=== PATIENT | male | born 1960 | race Caucasian/White ===

== ENCOUNTER 2016-06-11 03:33 | Inpatient (IN) | payer OTHER ==
[2016-06-11] MEDS ORDERED: ALBUTEROL NEBULIZED 2.5 MG/3 ML INHALATION STA (03:47)
[2016-06-11] MEDS ORDERED: SODIUM CHLORIDE 0.9% 1,000 ML IV STA (03:47)
[2016-06-11] MEDS ORDERED: IPRATROPIUM 0.5 MG/2.5 ML NEBU INHALATION STA (03:47)
[2016-06-11] MEDS ORDERED: methylPREDNISolone SOD SUCCI 125 MG/2 ML VIAL IV STA (03:47)
[2016-06-11] MEDS ORDERED: EPINEPHrine 1 MG/ML 1 ML AMP SQ STA (03:47)
[2016-06-11] MEDS ORDERED: cefTRIAXone 2,000 MG in SODIUM CHLORIDE 0.9% 100 ML IVPB STA (03:51)
[2016-06-11] MEDS ORDERED: IPRATROPIUM-ALBUTEROL 3 ML NEB INHALATION STA (03:59)
[2016-06-11] MEDS ORDERED: ALBUTEROL NEB (CONC) 2.5 MG/0.5 ML INHALATION STA (03:59)
[2016-06-11 04:07] LABS: Anisocytosis Slight; Basophils % (A) 1 %; CH 34.1; CHCM 35.1; Eosinophils # (A) 0.1 k/uL (0-0.7); Eosinophils % (A) 2 %; HCT 45.8 % (39.0-53.0); HDW 3.23; HGB 15.1 gm/dL (13.0-17.5); Luc # (Auto) 0.15; Luc % (Auto) 3; Lymphocytes # (A) 1.2 k/uL (1.0-4.8); Lymphocytes % (A) 27 %; MCH 32.3 pg (25.0-35.0); MCHC 32.9 g/dL (31.0-37.0); MCV 97.9 fL (80.0-100.0); Macrocytosis Slight; Mean Platelet Volume 7.5; Monocytes # (A) 0.5 k/uL (0-1.0); Monocytes % (A) 11 %; Neutrophils # (A) 2.5 k/uL (1.3-7.7); Neutrophils % (A) 56 %; RBC 4.68 m/uL (4.30-5.90); RDW 16.3 % (11.5-15.5); WBC 4.4 k/uL (3.8-10.6)
[2016-06-11 04:13] LABS: ALT 61 U/L (21-72); AST 43 U/L (17-59); Alkaline Phosphatase 83 U/L (38-126); Anion Gap 12 mmol/L; Blood Urea Nitrogen 14 mg/dL (9-20); Carbon Dioxide 26 mmol/L (22-30); Chloride 101 mmol/L (98-107); Glucose 102 mg/dL (74-99); Non-African American GFR(MDRD) >60 (>60 ml/min/1.73 sqM); Potassium 4.3 mmol/L (3.5-5.1); Sodium 139 mmol/L (137-145); Total Bilirubin 0.9 mg/dL (0.2-1.3); Total Protein 7.2 g/dL (6.3-8.2)
[2016-06-11 04:20] LABS: Partial Thromboplastin Time 25.3 sec (22.0-30.0); Prothrombin Time 10.3 sec (9.0-12.0)
[2016-06-11 04:22] LABS: Creatine Kinase 1080 U/L (55-170)
--- NOTE | 2016-06-11 04:30 | ED ---
SOB HPI - General Chief Complaint: Shortness of Breath Stated Complaint: SOB Time Seen by Provider: 06/11/16 03:44 Source: patient Mode of arrival: ambulatory Limitations: no limitations - History of Present Illness Initial Comments: Presented with shortness of breath, he has history of heart disease as well as COPD as well as chronic bronchitis. Shortness of breath started about 2 hours ago he also has a chest pain it started about the same time and chest pain gets worse with deep breaths he has a history of heart disease last 10) for years ago then he had another 1 (5 years,. Denies any headaches no neck stiffness no fever no chills he is not coughing up any phlegm otherwise review of system is negative - Related Data Home Medications Medication Instructions Recorded Confirmed Albuterol Inhaler [Ventolin Hfa 2 puff INHALATION RT-Q4H PRN 07/04/14 06/11/16 Inhaler] Aspirin EC [Ecotrin Low Dose] 81 mg PO DAILY 07/04/14 06/11/16 Atorvastatin [Lipitor] 80 mg PO HS 07/04/14 06/11/16 Clopidogrel [Plavix] 75 mg PO DAILY 07/04/14 06/11/16 Gabapentin [Neurontin] 900 mg PO QID 07/04/14 06/11/16 Budesonide/Formoterol Fumarate 2 puff INHALATION RT-BID 02/10/15 06/11/16 [Symbicort 160-4.5 Mcg Inhaler] EPINEPHrine [Epipen 2-Matthew] 0.3 mg IM ONCE PRN 02/10/15 06/11/16 Nitroglycerin Sl Tabs [Nitrostat] 0.4 mg SUBLINGUAL Q5M PRN 02/10/15 06/11/16 Omeprazole [PriLOSEC] 20 mg PO AC-BRKFST 02/10/15 06/11/16 Cyanocobalamin [Vitamin B-12] 1,000 mcg PO DAILY 12/18/15 06/11/16 DULoxetine HCL [Cymbalta] 60 mg PO DAILY 12/18/15 06/11/16 Ergocalciferol (Vitamin D2) 50,000 unit PO Q7DAYS 12/18/15 06/11/16 [Drisdol] Petrolatum, White [Aquaphor] 1 applic TOPICAL DAILY PRN 12/18/15 06/11/16 Previous Rx's Medication Instructions Recorded Doxycycline [Vibramycin] 100 mg PO BID #6 cap 12/23/15 Furosemide [Lasix] 40 mg PO BID@0900,1600 #60 tab 12/23/15 Ipratropium-Albuterol Nebulize 3 ml INHALATION RT-QID ampul.neb 12/23/15 [Duoneb 0.5 mg-3 mg/3 ml Soln] Metoprolol Tartrate [Lopressor] 25 mg PO BID #60 tab 12/23/15 Spironolactone [Aldactone] 25 mg PO DAILY #30 tab 12/23/15 Allergies Allergy/AdvReac Type Severity Reaction Status Date / Time pregabalin [From Lyrica] Allergy Dyspnea Verified 06/11/16 03:40 venom-honey bee Allergy Unknown Verified 06/11/16 03:40 [bee venom (honey bee)] atorvastatin AdvReac MUSCLE PAIN Verified 06/11/16 03:40 isosorbide mononitrate AdvReac HEADACHES Verified 06/11/16 03:40 [From Imdur] rosuvastatin calcium AdvReac MUSCLE PAIN Verified 06/11/16 03:40 [From Crestor] tramadol AdvReac SUICIDAL Verified 06/11/16 03:40 THOUGHTS venlafaxine AdvReac SUICIDAL Verified 06/11/16 03:40 THOUGHTS Review of Systems ROS Statement: Those systems with pertinent positive or pertinent negative responses have been documented in the HPI. ROS Other: All systems not noted in ROS Statement are negative. Past Medical History Past Medical History: Asthma, Coronary Artery Disease (CAD), Cancer, COPD, GERD/ Reflux, Hyperlipidemia, Hypertension, Myocardial Infarction ([place]), Pneumonia Additional Past Medical History / Comment(s): Recent sinus infection-on ABX, bilateral lower extremity edema, peripheral neuropathy bilateral legs/feet, prostate cancer with surgery. Last Myocardial Infarction Date:: 01/2014 History of Any Multi-Drug Resistant Organisms: None Reported Past Surgical History: Heart Catheterization With Stent, Orthopedic Surgery, Prostate Surgery Additional Past Surgical History / Comment(s): RT LEG surgery d/t trauma, cardiac stents x 2, prostatectomy, 2013 [facility] Past Anesthesia/Blood Transfusion Reactions: No Reported Reaction Date of Last Stent Placement:: 02/15/2014 Past Psychological History: No Psychological Hx Reported Additional Psychological History / Comment(s): Pt resides in [place]. He is in [place] assisting with getting his mother established with hospice care. He is independent. He uses no device. He drives. He has a nebulizer. 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 [facility] [place] [facility]. Smoking Status: Current every day smoker Past Alcohol Use History: Occasional Additional Past Alcohol Use History / Comment(s): Pt started smoking in 1971 and is a ppd smoker. Past Drug Use History: None Reported - Past Family History Mother Family Medical History: COPD Additional Family Medical History / Comment(s): abdominal aneurysm. Currently being set up in hospice. Father Family Medical History: Cancer Additional Family Medical History / Comment(s): : lung ca with brain mets. General Exam - General Exam Comments Initial Comments: General: The patient is awake and alert, in no distress, and does not appear acutely ill. GCS is 15 Skin: Skin is warm and dry and no rashes or lesions are noted. Eye: Pupils are equal, round and reactive to light, extra-ocular movements are intact; there is normal conjunctiva bilaterally. Ears, nose, mouth and throat: There are moist mucous membranes and no oral lesions. Neck: The neck is supple, there is no tenderness or JVD. Cardiovascular: There is a regular rate and rhythm. No murmur, rub or gallop is appreciated. Respiratory: To auscultation bilateral, is very poor air exchange exam is consistent with a severe COPD Gastrointestinal: Soft, non-distended, non-tender abdomen without masses or organomegaly noted. There is no rebound or guarding present. Bowel sounds are unremarkable. Back: There is no tenderness to palpation in the midline. There is no obvious deformity. Musculoskeletal: Normal ROM, no tenderness, There is no pedal edema. There is no calf tenderness or swelling. No cords were appreciated. Neurological: CN II-XII intact, Cranial nerves III through XII are intact. There are no obvious motor or sensory deficits. Coordination appears grossly intact. Speech is normal. Psychiatric: Cooperative, appropriate mood & affect, normal judgment. Limitations: no limitations Course Vital Signs 06/11/16 06/11/16 06/11/16 03:33 03:37 04:03 Temperature 98.4 F Pulse Rate 99 103 H Respiratory 24 18 Rate Blood Pressure 116/73 O2 Sat by Pulse 97 Oximetry 06/11/16 06/11/16 04:14 05:35 Temperature Pulse Rate 92 93 Respiratory 20 Rate Blood Pressure 143/86 O2 Sat by Pulse 94 L Oximetry EKG shows sinus tachycardia heart rate is 101 DC interval is 144 QRS duration is 72 QT/QTc is 332/4:30 and the review of this EKG does not reveal any ST elevation or ST depression wrist some lower Medical Decision Making - Lab Data Result diagrams: 06/11/16 03:55 06/11/16 03:55 Lab Results 06/11/16 06/11/16 06/11/16 Range/Units 03:55 03:55 03:55 WBC 4.4 (3.8-10.6) k/uL RBC 4.68 (4.30-5.90) m/uL Hgb 15.1 (13.0-17.5) gm/dL Hct 45.8 (39.0-53.0) % MCV 97.9 (80.0-100.0) fL MCH 32.3 (25.0-35.0) pg MCHC 32.9 (31.0-37.0) g/dL RDW 16.3 H (11.5-15.5) % Plt Count 148 L (150-450) k/uL Neutrophils % 56 % Lymphocytes % 27 % Monocytes % 11 % Eosinophils % 2 % Basophils % 1 % Neutrophils # 2.5 (1.3-7.7) k/uL Lymphocytes # 1.2 (1.0-4.8) k/uL Monocytes # 0.5 (0-1.0) k/uL Eosinophils # 0.1 (0-0.7) k/uL Basophils # 0.0 (0-0.2) k/uL Anisocytosis Slight Macrocytosis Slight PT (9.0-12.0) sec INR (<1.1) APTT (22.0-30.0) sec D-Dimer (<0.60) mg/L FEU Sodium 139 (137-145) mmol/L Potassium 4.3 (3.5-5.1) mmol/L Chloride 101 (98-107) mmol/L Carbon Dioxide 26 (22-30) mmol/L Anion Gap 12 mmol/L BUN 14 (9-20) mg/dL Creatinine 1.12 (0.66-1.25) mg/dL Est GFR (MDRD) Af Amer >60 (>60 ml/min/1.73 sqM) Est GFR (MDRD) Non-Af >60 (>60 ml/min/1.73 sqM) Glucose 102 H (74-99) mg/dL Calcium 10.0 (8.4-10.2) mg/dL Total Bilirubin 0.9 (0.2-1.3) mg/dL AST 43 (17-59) U/L ALT 61 (21-72) U/L Alkaline Phosphatase 83 (38-126) U/L Total Creatine Kinase 1080 H (55-170) U/L CK-MB (CK-2) 25.7 H* (0.0-2.4) ng/mL CK-MB (CK-2) Rel Index 2.4 Troponin I <0.012 (0.000-0.034) ng/mL Total Protein 7.2 (6.3-8.2) g/dL Albumin 4.3 (3.5-5.0) g/dL 06/11/16 Range/Units 03:55 WBC (3.8-10.6) k/uL RBC (4.30-5.90) m/uL Hgb (13.0-17.5) gm/dL Hct (39.0-53.0) % MCV (80.0-100.0) fL MCH (25.0-35.0) pg MCHC (31.0-37.0) g/dL RDW (11.5-15.5) % Plt Count (150-450) k/uL Neutrophils % % Lymphocytes % % Monocytes % % Eosinophils % % Basophils % % Neutrophils # (1.3-7.7) k/uL Lymphocytes # (1.0-4.8) k/uL Monocytes # (0-1.0) k/uL Eosinophils # (0-0.7) k/uL Basophils # (0-0.2) k/uL Anisocytosis Macrocytosis PT 10.3 (9.0-12.0) sec INR 1.0 (<1.1) APTT 25.3 (22.0-30.0) sec D-Dimer 0.84 H (<0.60) mg/L FEU Sodium (137-145) mmol/L Potassium (3.5-5.1) mmol/L Chloride (98-107) mmol/L Carbon Dioxide (22-30) mmol/L Anion Gap mmol/L BUN (9-20) mg/dL Creatinine (0.66-1.25) mg/dL Est GFR (MDRD) Af Amer (>60 ml/min/1.73 sqM) Est GFR (MDRD) Non-Af (>60 ml/min/1.73 sqM) Glucose (74-99) mg/dL Calcium (8.4-10.2) mg/dL Total Bilirubin (0.2-1.3) mg/dL AST (17-59) U/L ALT (21-72) U/L Alkaline Phosphatase (38-126) U/L Total Creatine Kinase (55-170) U/L CK-MB (CK-2) (0.0-2.4) ng/mL CK-MB (CK-2) Rel Index Troponin I (0.000-0.034) ng/mL Total Protein (6.3-8.2) g/dL Albumin (3.5-5.0) g/dL Critical Care Time Total Critical Care Time: 35 Critical Care Time: Does have a history of for coronary artery disease, came in came in with excruciating chest pain worse with the deep breaths also had a trouble breathing has a history of COPD. , he was started on a poor residential neb treatments with the albuterol as well as Atrovent was also giving him IV Solu- Medrol he was given an appendectomy as well and now he is breathing better at this point is the troponin is negative his CKs 1008 [address] CT angiogram is normal his d-dimer was elevated white count is within normal range considering his history of heart disease and chest pain number heparinize him cardiology be consulted and as well as COPD is concerned Dr. Khan to be consulted and he be admitted under Dr. Myrick service Disposition Clinical Impression: Chest pain, Dyspnea, Pleuritic chest pain, Acute exacerbation of chronic obstructive pulmonary disease (COPD), Rhabdomyolysis Disposition: ADMITTED IP TO THIS [facility] Condition: Fair Referrals: Nonstaff,Physician [Primary Care Provider] - 1-2 days
[2016-06-11 04:35] LABS: Troponin I <0.012 ng/mL (0.000-0.034)
[2016-06-11 04:38] LABS: Creatine Kinase MB 25.7 ng/mL (0.0-2.4)
[2016-06-11] MEDS ORDERED: RX INFO: IV CONTRAST WAS GIVEN 1 EACH MISC MISCELLANE PRN (05:03)
[2016-06-11] MEDS ORDERED: SODIUM CHLORIDE 0.9% 500 ML IV ONE (05:13)
--- NOTE | 2016-06-11 06:10 | CT ---
EXAMINATION TYPE: CT angio chest DATE OF EXAM: 06/11/2016 5:38 AM COMPARISON: NONE HISTORY: SOB, asthma, COPD, elevated d-dimer R/O PE CT DLP: 1294.00 mGycm Automated exposure control for dose reduction was used. CONTRAST: CTA scan of the thorax is performed with IV Contrast, patient injected with 100 mL of Omnipaque 350, pulmonary embolism protocol. MIP images are created and reviewed. 3D reconstructed images are creat ed on an independent workstation and reviewed. FINDINGS: The lungs are clear consolidation. There is no pleural effusion. There is no evidence of a pulmonary mass. There is normal contrast opacification of the pulmonary arteries. I see no filling defects. There are no hilar masses. There is no mediastinal adenopathy. There is some spurring in the thoracic spine. T here is no evidence of aortic aneurysm or dissection. IMPRESSION: NEGATIVE CT ANGIOGRAM OF THE CHEST. NO EVIDENCE OF PULMONARY EMBOLISM.
[2016-06-11] MEDS ORDERED: MORPHINE SULFATE 2 MG/ML SYRINGE IVP PRN (06:23)
[2016-06-11] MEDS ORDERED: HEPARIN SODIUM,PORCINE 5,000 UNIT/ML 1 ML VIAL IV ONE (06:23)
[2016-06-11] MEDS ORDERED: PETROLATUM, WHITE OINT 50 GM TUBE TOPICAL PRN (06:28)
[2016-06-11] MEDS ORDERED: NITROGLYCERIN SL TABS 0.4 MG TAB SUBLINGUAL PRN (06:28)
[2016-06-11] MEDS ORDERED: ALBUTEROL NEBULIZED 2.5 MG/3 ML INHALATION PRN (06:28)
[2016-06-11] MEDS: HEPARIN SODIUM,PORCINE/D5W PMX 25,000 UNIT in DEXTROSE/WATER 1 500ML.BAG IV SCH ×2 (06:39→22:20)
[2016-06-11] MEDS ORDERED: SYMBICORT 160-4.5 MCG INHALER INHALATION SCH (08:00)
[2016-06-11] MEDS ORDERED: FUROSEMIDE 10 MG/ML 4 ML VIAL IV STA (08:56)
--- NOTE | 2016-06-11 08:56 | P.CRDCN ---
History of Present Illness Consult date: 06/11/16 Requesting physician: Jordon Aguila Consult reason: chest pain, shortness of breath Chief complaint: Shortness of breath and chest discomfort History of present illness: This is a 55-year-old gentleman with known history of coronary artery disease and prior RCA stent in 2012, patient also had moderate disease in the LAD at that time, subsequent to that patient did have a stent placed at the [facility] in [place], exact details of that are unavailable. He currently resides in [place]. He has known history also of hypertension, hyperlipidemia, COPD and nicotine dependence. He presents to the hospital with symptoms of a 3 day duration of shortness of breath, he states he also noticed some peripheral edema. Patient has been having intermittent chest heaviness, he states it feels like someone is sitting in his chest. This occurs off and on he's been experiencing this for over one week. For these reasons he came to the emergency room for further evaluation. EKG on arrival here showed a normal sinus rhythm with no acute changes, CTA of the chest was performed which was negative for pulmonary embolism. No chest x-ray performed. Laboratory data was reviewed, hemoglobin 15.1, platelet count 148, d-dimer 0.84, potassium 4.3, BUN 14, creatinine 1.1. Initial troponin 0.012. We do not have a BNP level. At the time of my examination this morning, patient still complains of having shortness of breath, not currently experiencing chest pain, he did state that he had some discomfort in his left arm earlier this morning. Past Medical History Past Medical History: Asthma, Coronary Artery Disease (CAD), Cancer, COPD, GERD/ Reflux, Hyperlipidemia, Hypertension, Myocardial Infarction ([place]), Pneumonia Additional Past Medical History / Comment(s): Recent sinus infection-on ABX, bilateral lower extremity edema, peripheral neuropathy bilateral legs/feet, prostate cancer with surgery. Last Myocardial Infarction Date:: 01/2014 History of Any Multi-Drug Resistant Organisms: None Reported Past Surgical History: Heart Catheterization With Stent, Orthopedic Surgery, Prostate Surgery Additional Past Surgical History / Comment(s): RT LEG surgery d/t trauma, cardiac stents x 2, prostatectomy, 2013 [facility] Past Anesthesia/Blood Transfusion Reactions: No Reported Reaction Date of Last Stent Placement:: 02/15/2014 Past Psychological History: No Psychological Hx Reported Additional Psychological History / Comment(s): Pt resides in [place]. He is in [place] assisting with getting his mother established with hospice care. He is independent. He uses no device. He drives. He has a nebulizer. 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 He [facility] [place] [facility]. Smoking Status: Current every day smoker Past Alcohol Use History: Occasional Additional Past Alcohol Use History / Comment(s): Pt started smoking in 1971 and is a ppd smoker. Past Drug Use History: None Reported - Past Family History Mother Family Medical History: COPD Additional Family Medical History / Comment(s): abdominal aneurysm. Currently being set up in hospice. Father Family Medical History: Cancer Additional Family Medical History / Comment(s): : lung ca with brain mets. Medications and Allergies Home Medications Medication Instructions Recorded Confirmed Type Albuterol Inhaler [Ventolin Hfa 2 puff INHALATION RT-Q4H PRN 07/04/14 06/11/16 History Inhaler] Aspirin EC [Ecotrin Low Dose] 81 mg PO DAILY 07/04/14 06/11/16 History Atorvastatin [Lipitor] 80 mg PO HS 07/04/14 06/11/16 History Clopidogrel [Plavix] 75 mg PO DAILY 07/04/14 06/11/16 History Gabapentin [Neurontin] 900 mg PO QID 07/04/14 06/11/16 History Budesonide/Formoterol Fumarate 2 puff INHALATION RT-BID 02/10/15 06/11/16 History [Symbicort 160-4.5 Mcg Inhaler] EPINEPHrine [Epipen 2-Matthew] 0.3 mg IM ONCE PRN 02/10/15 06/11/16 History Nitroglycerin Sl Tabs [Nitrostat] 0.4 mg SUBLINGUAL Q5M PRN 02/10/15 06/11/16 History Omeprazole [PriLOSEC] 20 mg PO AC-BRKFST 02/10/15 06/11/16 History Cyanocobalamin [Vitamin B-12] 1,000 mcg PO DAILY 12/18/15 06/11/16 History DULoxetine HCL [Cymbalta] 60 mg PO DAILY 12/18/15 06/11/16 History Ergocalciferol (Vitamin D2) 50,000 unit PO SUTH 12/18/15 06/11/16 History [Drisdol] Petrolatum, White [Aquaphor] 1 applic TOPICAL DAILY PRN 12/18/15 06/11/16 History Doxycycline Hyclate [Vibramycin] 100 mg PO BID 06/11/16 06/11/16 History Allergies Allergy/AdvReac Type Severity Reaction Status Date / Time pregabalin [From Lyrica] Allergy Dyspnea Verified 06/11/16 07:25 venom-honey bee Allergy Unknown Verified 06/11/16 07:25 [bee venom (honey bee)] atorvastatin AdvReac MUSCLE PAIN Verified 06/11/16 07:25 isosorbide mononitrate AdvReac HEADACHES Verified 06/11/16 07:25 [From Imdur] rosuvastatin calcium AdvReac MUSCLE PAIN Verified 06/11/16 07:25 [From Crestor] tramadol AdvReac SUICIDAL Verified 06/11/16 07:25 THOUGHTS venlafaxine AdvReac SUICIDAL Verified 06/11/16 07:25 THOUGHTS Physical Exam Vitals: Vital Signs Pulse Resp BP Pulse Ox 06/11/16 08:00 83 18 139/69 97 06/11/16 07:00 87 18 120/66 96 PHYSICAL EXAMINATION: HEENT: Head is atraumatic, normocephalic. Pupils equal, round. Neck is supple. There is elevated jugular venous pressure. HEART EXAMINATION: Heart S1, S2 normal. No murmur or gallop heard. CHEST EXAMINATION: Lungs are clear with diminished air entry bilaterally to the bases. ABDOMEN: Soft, obese, nontender. Bowel sounds are heard. No organomegaly noted. EXTREMITIES: 2+ peripheral pulses with trace evidence of peripheral edema and no calf tenderness noted. NEUROLOGIC patient is awake, alert and oriented -3. . Results 06/11/16 03:55 06/11/16 03:55 Current Medications Generic Name Dose Route Start Last Admin Trade Name Freq PRN Reason Stop Dose Admin Albuterol Sulfate 2.5 mg 06/11/16 06:28 Ventolin Nebulized INHALATION RT-Q4H PRN Shortness Of Breath Albuterol/Ipratropium 3 ml 06/11/16 08:00 Duoneb 0.5 Mg-3 Mg/3 Ml Soln INHALATION RT-QID [facility] Aspirin 325 mg 06/12/16 09:00 Aspirin PO DAILY [facility] Atorvastatin Calcium 80 mg 06/11/16 21:00 Lipitor PO HS [facility] Budesonide/Formoterol Fumarate 2 puff 06/11/16 08:00 Symbicort 160-4.5 Mcg Inhaler INHALATION RT-BID [facility] Clopidogrel Bisulfate 75 mg 06/11/16 09:00 Plavix PO DAILY [facility] Cyanocobalamin 1,000 mcg 06/11/16 09:00 Vitamin B-12 PO DAILY [facility] Doxycycline Monohydrate 100 mg 06/11/16 09:00 Vibramycin PO BID [facility] Duloxetine HCl 60 mg 06/11/16 09:00 Cymbalta PO DAILY [facility] Ergocalciferol 50,000 unit 06/11/16 09:00 Vitamin D2 PO Q7DAYS [facility] Furosemide 40 mg 06/11/16 09:00 Lasix PO BID@0900,1600 [facility] Gabapentin 900 mg 06/11/16 09:00 Neurontin PO QID [facility] Sodium Chloride 1,000 mls @ 100 mls/hr 06/11/16 03:47 06/11/16 04:08 Saline 0.9% IV 06/11/16 13:46 100 mls/hr .Q10H STA Administration Heparin Sodium/Dextrose 25,000 500 mls @ 20 mls/hr 06/11/16 06:30 06/11/16 06 :39 unit/ IV Solution IV 8.819 units/kg/hr .Q24H CHUY 20 mls/hr Protocol Administration 8.819 UNITS/KG/HR Metoprolol Tartrate 25 mg 06/11/16 09:00 Lopressor PO BID [facility] Miscellaneous Information 1 each 06/11/16 05:03 Rx Info: Iv Contrast Was Given MISCELLANE 06/13/16 05:04 DAILY PRN Per Protocol Morphine Sulfate 2 mg 06/11/16 06:23 Morphine Sulfate (Inj) IVP Q5M PRN Chest Pain Nitroglycerin 0.4 mg 06/11/16 06:28 Nitrostat SUBLINGUAL Q5M PRN Angina Non-Formulary Medication 20 mg 06/11/16 07:30 Omeprazole [Prilosec] PO AC-BRKFST [facility] Petrolatum 1 applic 06/11/16 06:28 Aquaphor TOPICAL DAILY PRN Dry Skin Spironolactone 25 mg 06/11/16 09:00 Aldactone PO DAILY [facility] EKG Interpretations (text) EKG shows a normal sinus rhythm with no acute changes. Assessment and Plan Plan: Assessment and plan #1 symptoms of sudden onset of shortness of breath mild associated peripheral edema, possible congestive heart failure, likely diastolic in nature. We will obtain a chest x-ray and BNP level. Most recent echocardiogram with Doppler study was performed here in December which revealed a left ventricular systolic function of 60-65%. #2 chest pain, somewhat atypical in nature. Initial troponin negative. EKG shows a normal sinus rhythm with no acute changes. We will obtain to further troponin values as well as an echocardiogram with Doppler study. CTA of the chest negative for PE. #3 known history of coronary artery disease with prior RCA stent in 2012, moderate LAD stenosis at that time. Subsequent to that patient did undergo a stent placement at the [facility] in [place], exact details unavailable. #4 hypertension, blood pressure here 138/60, heart rate in the 80s. He is 97% on 2 L oxygen. # 5 hyperlipidemia #6 COPD #7 nicotine dependence Plan We will obtain a stat chest x-ray, we will also obtain a BNP level, obtain to further troponin values. Repeat echocardiogram with Doppler study. Patient is currently on oral Lasix, we will give him a dose of IV Lasix. Further recommendations will be based on these findings and the patient's clinical course. DNP note has been reviewed, I agree with a documented findings and plan of care. Patient was seen and examined.
--- NOTE | 2016-06-11 09:07 | XR ---
EXAMINATION TYPE: XR chest 2V DATE OF EXAM: 06/11/2016 9:04 AM COMPARISON: 12/18/2015 HISTORY: Shortness of breath FINDINGS: The lungs are clear and there is no pneumothorax, pleural effusion, or focal pneumonia. Hyperinflat ion suggests COPD. Biapical pleural thickening noted. Hypertrophic change of the spine noted. IMPRESSION: 1. No acute process.
--- NOTE | 2016-06-11 10:33 | ECHOF ---
Referral Reason:chest pain MEASUREMENTS -------- HEIGHT: 157.5 cm WEIGHT: 113.4 kg BP: IVSd: 1.2 cm (0.6 - 1.1) LVIDd: 3.6 cm (3.9 - 5.3) LVPWd: 1.5 cm (0.6 - 1.1) IVSs: 1.5 cm LVIDs: 3.2 cm LVPWs: 1.2 cm Ao Diam: 3.2 cm (2.0 - 3.7) AV Cusp: 1.3 cm (1.5 - 2.6) LA Diam: 3.8 cm (2.7 - 3.8) MV E Gen: 0.68 m/s MV DecT: 210 ms MV A Gen: 0.83 m/s MV E/A Ratio: 0.83 RAP: 5.00 mmHg RVSP: 17.74 mmHg FINDINGS -------- Sinus rhythm. This was a technically difficult study with suboptimal views. Morbid Obesity There is mild concentric left ventricular hypertrophy. Overall left ventricular systolic function is normal with, an EF between 55 - 60 %. The right ventricle is normal in size. The left atrial size is normal. The right atrial size is normal. There is mild aortic valve sclerosis. There is no evidence of aortic regurgitation. Mild mitral annular calcification present. Mild mitral regurgitation is present. Mild tricuspid regurgitation present. There is no evidence of pulmonary hypertension. The right ventricular systolic pressure, as measured by Doppler, is 17.74mmHg. There is no pulmonic regurgitation present. The aortic root size is normal. There is no pericardial effusion. CONCLUSIONS -------- 1. There is mild concentric left ventricular hypertrophy. 2. Overall left ventricular systolic function is normal with, an EF between 55 - 60 %. 3. There is mild aortic valve sclerosis. 4. Mild mitral annular calcification present. 5. Mild mitral regurgitation is present. 6. Mild tricuspid regurgitation present. 7. There is no evidence of pulmonary hypertension. 8. The right ventricular systolic pressure, as measured by Doppler, is 17.74mmHg. INSTRUCTIONAL SYSTEMS SPECIALIST: Sol Sexton RDCS
[2016-06-11 11:12] LABS: Creatine Kinase 1110 U/L (55-170)
[2016-06-11 11:25] LABS: Troponin I <0.012 ng/mL (0.000-0.034)
[2016-06-11 11:32] LABS: Creatine Kinase MB 25.2 ng/mL (0.0-2.4)
--- NOTE | 2016-06-11 12:16 | HP ---
DATE OF ADMISSION: CHIEF COMPLAINT: Difficulty breathing. HISTORY OF PRESENT ILLNESS: This is the first admission for this 55-year-old, obese, white male from out of [facility]. He has a long-standing history of COPD and continues to smoke. He also has a history of coronary artery disease and has had a cardiac cath with placements of 2 stents. He also had CA of the prostate. He came to the emergency room with shortness of breath and also complaining of some chest discomfort with elevated cardiac enzymes. He has had no hemoptysis, fever, chills, purulent sputum production, etc. REVIEW OF SYSTEMS: He has had no change in vision or hearing, neurologic problems, cough, hemoptysis, orthopnea, PND, abdominal pain, nausea, vomiting, hematemesis, melena, hematochezia, colitis, diverticulosis, diverticulitis, hemorrhoids, jaundice, hepatitis, cirrhosis, hematuria, frequency, urgency, arthralgias, diabetes, etc. He does have a peripheral neuropathy and he has been told that it is a "prediabetic" problem. Past medical history, family history and personal and social histories reveal that he is on several different medications including something for his cholesterol and blood pressure. He is not allergic to any medication. SURGICAL HISTORY: He had a procedure on the right leg and 2 stents, and he is also had surgery for CA of the prostate. He continues to smoke at least a pack of cigarettes a day. PHYSICAL EXAMINATION: Blood pressure 140/73 with a pulse of 92, respirations 35 and he is afebrile. GENERAL: He appeared to be short of breath and obese. Skin color is normal. Skin is warm and dry. Lymph nodes are not enlarged. Head, ears, eyes, nose, mouth, and throat were normal. Neck veins not distended. Thyroid is not enlarged. Chest is clear. Cardiac exam is normal. No murmurs or extra sounds. Abdomen is protuberant and soft. There are no masses or visceromegaly. Extremities are normal. NEUROLOGICAL: He is intact. IMPRESSION: 1. Exacerbation of chronic obstructive pulmonary disease. 2. Hypertension. 3. History of coronary artery disease. 4. History of cancer of the prostate. 5. Peripheral neuropathy. PLAN: 1. Bed rest. 2. IV fluids. 3. Serial EKGs and enzymes. 4. IV and inhaled steroids with updrafts.
--- NOTE | 2016-06-11 13:09 | P.CNPUL ---
History of Present Illness Consult date: 06/11/16 Reason for consult: dyspnea, cough, chest pain Chief complaint: cough, chest pain History of present illness: 55 year old male presented to the ED c/o SOB and cough for 3 days. The patient states he does not see a identity access management architect here in , he did see one when he lived in [place]. He states he started with a cough and it is now productive of phlegm. He did have fever and chills at home, but states he never checked his temperature. He denies any sick contacts. He does continue to smoke 1 ppd x 40 years. He states he was told he has COPD and uses Spiriva, Symbicort, Albuterol nebs, and Ventolin. He does not wear home O2. He states he did have some chest pain which made it hard for him to take a deep breath. Review of Systems All systems: negative Past Medical History Past Medical History: Asthma, Coronary Artery Disease (CAD), Cancer, Heart Failure, COPD, GERD/Reflux, Hyperlipidemia, Hypertension, Myocardial Infarction (PR), Pneumonia, Prostate Disorder Additional Past Medical History / Comment(s): PR x 2, SAMIR with CPAP, chronic CHF , bilateral lower extremity edema, peripheral neuropathy bilateral legs/feet, prostate cancer with surgery, sinus infections. Last Myocardial Infarction Date:: 2014 History of Any Multi-Drug Resistant Organisms: None Reported Past Surgical History: Heart Catheterization With Stent, Orthopedic Surgery, Prostate Surgery Additional Past Surgical History / Comment(s): RT LEG surgery d/t trauma, cardiac stents x 2, prostatectomy Past Anesthesia/Blood Transfusion Reactions: No Reported Reaction Date of Last Stent Placement:: 02/15/2014 Past Psychological History: No Psychological Hx Reported Additional Psychological History / Comment(s): Pt resides in [place]. He is in [place] visiting with family for the holidays. He is independent. He uses no device. He drives. He has a nebulizer. 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 He has [facility] [place] in the past. Smoking Status: Current every day smoker Past Alcohol Use History: Occasional Additional Past Alcohol Use History / Comment(s): Pt started smoking in 1971 and is a ppd smoker. Past Drug Use History: None Reported - Past Family History Mother Family Medical History: COPD Additional Family Medical History / Comment(s): abdominal aneurysm. Currently being set up in hospice. Father Family Medical History: Cancer Additional Family Medical History / Comment(s): : lung ca with brain mets. Medications and Allergies Home Medications Medication Instructions Recorded Confirmed Type Albuterol Inhaler [Ventolin Hfa 2 puff INHALATION RT-Q4H PRN 07/04/14 06/11/16 History Inhaler] Aspirin EC [Ecotrin Low Dose] 81 mg PO DAILY 07/04/14 06/11/16 History Atorvastatin [Lipitor] 80 mg PO HS 07/04/14 06/11/16 History Clopidogrel [Plavix] 75 mg PO DAILY 07/04/14 06/11/16 History Gabapentin [Neurontin] 900 mg PO QID 07/04/14 06/11/16 History Budesonide/Formoterol Fumarate 2 puff INHALATION RT-BID 02/10/15 06/11/16 History [Symbicort 160-4.5 Mcg Inhaler] EPINEPHrine [Epipen 2-Matthew] 0.3 mg IM ONCE PRN 02/10/15 06/11/16 History Nitroglycerin Sl Tabs [Nitrostat] 0.4 mg SUBLINGUAL Q5M PRN 02/10/15 06/11/16 History Omeprazole [PriLOSEC] 20 mg PO AC-BRKFST 02/10/15 06/11/16 History Cyanocobalamin [Vitamin B-12] 1,000 mcg PO DAILY 12/18/15 06/11/16 History DULoxetine HCL [Cymbalta] 60 mg PO DAILY 12/18/15 06/11/16 History Ergocalciferol (Vitamin D2) 50,000 unit PO SUTH 12/18/15 06/11/16 History [Drisdol] Petrolatum, White [Aquaphor] 1 applic TOPICAL DAILY PRN 12/18/15 06/11/16 History Doxycycline Hyclate [Vibramycin] 100 mg PO BID 06/11/16 06/11/16 History Allergies Allergy/AdvReac Type Severity Reaction Status Date / Time pregabalin [From Lyrica] Allergy Dyspnea Verified 06/11/16 07:25 venom-honey bee Allergy Unknown Verified 06/11/16 07:25 [bee venom (honey bee)] atorvastatin AdvReac MUSCLE PAIN Verified 06/11/16 07:25 isosorbide mononitrate AdvReac HEADACHES Verified 06/11/16 07:25 [From Imdur] rosuvastatin calcium AdvReac MUSCLE PAIN Verified 06/11/16 07:25 [From Crestor] tramadol AdvReac SUICIDAL Verified 06/11/16 07:25 THOUGHTS venlafaxine AdvReac SUICIDAL Verified 06/11/16 07:25 THOUGHTS Physical Exam Osteopathic Statement: *. No significant issues noted on an osteopathic structural exam other than those noted in the History and Physical/Consult. Vitals: Vital Signs Pulse Resp BP Pulse Ox 06/11/16 10:00 52 L 18 141/96 97 06/11/16 09:00 51 L 18 137/94 96 06/11/16 08:00 83 18 139/69 97 06/11/16 07:00 87 18 120/66 96 Gen: A+OX3, NAD, obese CV: RRR, s1/s2 Lungs: diminished otherwise clear Abd: soft, nt/nd, +BS Ext: no edema Results - Laboratory Findings CBC and BMP: 06/11/16 03:55 06/11/16 03:55 PT/INR, D-dimer PT 10.3 sec (9.0-12.0) 06/11/16 03:55 INR 1.0 (<1.1) 06/11/16 03:55 D-Dimer 0.84 mg/L FEU (<0.60) H 06/11/16 03:55 Abnormal lab findings: Abnormal Labs 06/11/16 09:59 Total Creatine Kinase 1110 H CK-MB (CK-2) 25.2 H* - Diagnostic Findings Chest x-ray: report reviewed, image reviewed Assessment and Plan Plan: Acute exacerbation of COPD Tracheobronchitis Active tobacco abuse Obesity Atypical chest pain Hypertension Dyslipidemia Obesity Hx Prostate cancer O2 to maintain sat > or = to 88% Bronchodilators and Pulmicort/Perforomist Echocardiogram pending IV Solumedrol Singulair ABX: Azithromycin and Rocephin Cardiology recs Smoking cessation recommended Incentive spirometry and pulmonary hygiene May need outpatient PSG and PFT Thank you for this consultation. We will continue to follow along.
[2016-06-11] MEDS: GABAPENTIN 300 MG CAP PO SCH ×3 (14:26→20:42)
[2016-06-11] MEDS: SPIRONOLACTONE 25 MG TAB PO SCH (14:26)
[2016-06-11] MEDS: DULoxetine HCL 60 MG CAPSULE.DR PO SCH (14:26)
[2016-06-11] MEDS: methylPREDNISolone SOD SUCCI 40 MG/ML 1 ML VIAL IV SCH ×3 (14:26→23:02)
[2016-06-11] MEDS: PANTOPRAZOLE 40 MG TABLET PO SCH (14:27)
[2016-06-11] MEDS: CLOPIDOGREL 75 MG TAB PO SCH (14:29)
[2016-06-11] MEDS: CYANOCOBALAMIN 500 MCG TAB PO SCH (14:29)
[2016-06-11] MEDS: IPRATROPIUM-ALBUTEROL 3 ML NEB INHALATION SCH ×3 (14:56→20:02)
[2016-06-11] MEDS ORDERED: HEPARIN SODIUM,PORCINE 5,000 UNIT/ML 1 ML VIAL IV STA (15:57)
[2016-06-11 17:05] LABS: Creatine Kinase 955 U/L (55-170)
[2016-06-11] MEDS: FUROSEMIDE 40 MG TAB PO SCH (17:09)
[2016-06-11 17:18] LABS: Troponin I <0.012 ng/mL (0.000-0.034)
[2016-06-11 17:35] LABS: Creatine Kinase MB 22.6 ng/mL (0.0-2.4)
[2016-06-11 17:38] LABS: Glucose,Whole Blood 236 mg/dL (75-99)
[2016-06-11] MEDS: INSULIN LISPRO (humaLOG) 300 UNIT/3 ML VIAL SQ SCH ×2 (18:48→20:43)
[2016-06-11 19:57] LABS: Glucose,Whole Blood 302 mg/dL (75-99)
[2016-06-11] MEDS: FORMOTEROL FUMARATE 20 MCG/2 ML NEBU INHALATION SCH (20:02)
[2016-06-11] MEDS: BUDESONIDE 0.5 MG/2 ML NEBU INHALATION SCH (20:02)
[2016-06-11] MEDS: DOXYCYCLINE 50 MG CAP PO SCH (20:42)
[2016-06-11] MEDS: MONTELUKAST 10 MG TAB PO SCH (20:42)
[2016-06-11] MEDS: METOPROLOL TARTRATE 25 MG TAB PO SCH (20:43)
[2016-06-11] MEDS: ATORVASTATIN 80 MG TAB PO SCH (20:43)
[2016-06-11 22:31] LABS: Hemoglobin A1C 5.4 % (4.2-6.1)
[2016-06-11] MEDS: HEPARIN SODIUM,PORCINE 5,000 UNIT/ML 1 ML VIAL IV PRN (23:12)
[2016-06-12 05:47] LABS: Glucose,Whole Blood 171 mg/dL (75-99)
[2016-06-12] MEDS: methylPREDNISolone SOD SUCCI 40 MG/ML 1 ML VIAL IV SCH ×2 (05:54→12:26)
[2016-06-12] MEDS: INSULIN LISPRO (humaLOG) 300 UNIT/3 ML VIAL SQ SCH ×4 (05:55→20:24)
[2016-06-12] MEDS: PANTOPRAZOLE 40 MG TABLET PO SCH (05:55)
[2016-06-12 06:20] LABS: Cholesterol 232 mg/dL (<200); HDL Cholesterol 39 mg/dL (40-60); Triglycerides 340 mg/dL (<150)
[2016-06-12] MEDS: HEPARIN SODIUM,PORCINE 5,000 UNIT/ML 1 ML VIAL IV PRN (06:37)
[2016-06-12] MEDS: FORMOTEROL FUMARATE 20 MCG/2 ML NEBU INHALATION SCH ×2 (08:08→20:50)
[2016-06-12] MEDS: IPRATROPIUM-ALBUTEROL 3 ML NEB INHALATION SCH ×4 (08:08→20:50)
[2016-06-12] MEDS: BUDESONIDE 0.5 MG/2 ML NEBU INHALATION SCH ×2 (08:08→20:50)
[2016-06-12] MEDS: ASPIRIN 325 MG TAB PO SCH (08:18)
[2016-06-12] MEDS: CYANOCOBALAMIN 500 MCG TAB PO SCH (08:19)
[2016-06-12] MEDS: DULoxetine HCL 60 MG CAPSULE.DR PO SCH (08:19)
[2016-06-12] MEDS: DOXYCYCLINE 50 MG CAP PO SCH ×2 (08:19→20:24)
[2016-06-12] MEDS: FUROSEMIDE 40 MG TAB PO SCH ×2 (08:19→15:28)
[2016-06-12] MEDS: SPIRONOLACTONE 25 MG TAB PO SCH (08:19)
[2016-06-12] MEDS: CLOPIDOGREL 75 MG TAB PO SCH (08:19)
[2016-06-12] MEDS: GABAPENTIN 300 MG CAP PO SCH ×4 (08:19→20:23)
[2016-06-12] MEDS: METOPROLOL TARTRATE 25 MG TAB PO SCH ×2 (08:19→20:24)
[2016-06-12] MEDS ORDERED: AZITHROMYCIN 500 MG in SODIUM CHLORIDE 0.9% 250 ML IVPB SCH (09:00)
[2016-06-12 11:40] LABS: Glucose,Whole Blood 324 mg/dL (75-99)
--- NOTE | 2016-06-12 12:04 | P.PN ---
Subjective Principal diagnosis: Chest pain and shortness of breath Patient seen and examined. Patient states his breathing is better today. He denies any chest pain today. He states he did have one episode of chest pain last night. He states his back pain is chronic. He is otherwise feeling better overall. Objective - Vital Signs Vital signs: Vital Signs Temp 97.3 F L 06/12/16 08:00 Pulse 73 06/12/16 12:00 Resp 16 06/12/16 08:00 BP 127/67 06/12/16 08:00 Pulse Ox 93 L 06/12/16 08:08 Intake & Output 06/11/16 06/12/16 06/12/16 18:59 06:59 18:59 Intake Total 406.667 151.597 1271 Output Total 2 700 Balance 406.667 386.278 316 Weight 115.3 kg Intake: Intake, IV Titration 186.667 388.278 Amount Heparin Sodium,Porcine/ 186.667 388.278 D5w Pmx 25,000 unit In Dextrose/Water 1 500ml. bag @ 8.819 UNITS/KG/HR 20 mls/hr IV .Q24H [facility] Rx #:[id number] Oral 220 1016 Output: Urine 2 700 Other: # Voids 2 - Exam Gen: A+OX3, NAD, obese CV: RRR, s1/s2 Lungs: diminished otherwise clear Abd: soft, nt/nd, +BS Ext: no edema - Labs CBC & Chem 7: 06/11/16 03:55 06/11/16 03:55 Labs: Abnormal Lab Results - Last 24 Hours (Table) 06/11/16 06/11/16 06/11/16 Range/Units 15:47 17:36 19:55 APTT (22.0-30.0) sec POC Glucose (mg/dL) 236 H 302 H (75-99) mg/dL Total Creatine Kinase 955 H (55-170) U/L CK-MB (CK-2) 22.6 H* (0.0-2.4) ng/mL Triglycerides (<150) mg/dL Cholesterol (<200) mg/dL LDL Cholesterol, Calc (0-99) mg/dL HDL Cholesterol (40-60) mg/dL 06/12/16 06/12/16 06/12/16 Range/Units 05:43 05:45 05:47 APTT 32.4 H (22.0-30.0) sec POC Glucose (mg/dL) 171 H (75-99) mg/dL Total Creatine Kinase (55-170) U/L CK-MB (CK-2) (0.0-2.4) ng/mL Triglycerides 340 H (<150) mg/dL Cholesterol 232 H (<200) mg/dL LDL Cholesterol, Calc 125 H (0-99) mg/dL HDL Cholesterol 39 L (40-60) mg/dL 06/12/16 Range/Units 11:39 APTT (22.0-30.0) sec POC Glucose (mg/dL) 324 H (75-99) mg/dL Total Creatine Kinase (55-170) U/L CK-MB (CK-2) (0.0-2.4) ng/mL Triglycerides (<150) mg/dL Cholesterol (<200) mg/dL LDL Cholesterol, Calc (0-99) mg/dL HDL Cholesterol (40-60) mg/dL Assessment and Plan Plan: Acute exacerbation of COPD Tracheobronchitis Active tobacco abuse Obesity Atypical chest pain Hypertension Dyslipidemia Obesity Hx Prostate cancer O2 to maintain sat > or = to 88% Bronchodilators and Pulmicort/Perforomist Echocardiogram IV Solumedrol, change to PO Prednisone now Singulair ABX: Azithromycin and Rocephin Cardiology recs Smoking cessation recommended Incentive spirometry and pulmonary hygiene Outpatient PSG and PFT
--- NOTE | 2016-06-12 12:44 | P.PN ---
Subjective Principal diagnosis: Shortness of breath This is a 55-year-old gentleman with known history of coronary artery disease and prior RCA stent in 2012, patient also had moderate disease in the LAD at that time, subsequent to that patient did have a stent placed at the [facility] in [place], exact details of that are unavailable. He currently resides in [place]. He has known history also of hypertension, hyperlipidemia, COPD and nicotine dependence. He presents to the hospital with symptoms of a 3 day duration of shortness of breath, he states he also noticed some peripheral edema. Patient has been having intermittent chest heaviness, he states it feels like someone is sitting in his chest. This occurs off and on he's been experiencing this for over one week. For these reasons he came to the emergency room for further evaluation. EKG on arrival here showed a normal sinus rhythm with no acute changes, CTA of the chest was performed which was negative for pulmonary embolism. Patient was initiated on IV Lasix yesterday, today he states that he is coughing up dark colored sputum. Echocardiogram with Doppler study was performed which revealed an ejection fraction of 55-60%. Patient was also initiated on steroids and IV antibiotics. Overall he states he is feeling significantly better today. Objective - Vital Signs Vital signs: Vital Signs Temp 97.3 F L 06/12/16 08:00 Pulse 73 06/12/16 12:00 Resp 16 06/12/16 08:00 BP 127/67 06/12/16 08:00 Pulse Ox 93 L 06/12/16 08:08 Intake & Output 06/11/16 06/12/16 06/12/16 18:59 06:59 18:59 Intake Total 406.667 789.777 1513 Output Total 2 700 Balance 406.667 386.278 316 Weight 115.3 kg Intake: Intake, IV Titration 186.667 388.278 Amount Heparin Sodium,Porcine/ 186.667 388.278 D5w Pmx 25,000 unit In Dextrose/Water 1 500ml. bag @ 8.819 UNITS/KG/HR 20 mls/hr IV .Q24H [facility] Rx #:[id number] Oral 220 1016 Output: Urine 2 700 Other: # Voids 2 - Exam PHYSICAL EXAMINATION: HEENT: Head is atraumatic, normocephalic. Pupils equal, round. Neck is supple. There is elevated jugular venous pressure. HEART EXAMINATION: Heart S1, S2 normal. No murmur or gallop heard. CHEST EXAMINATION: Lungs are clear with diminished air entry bilaterally to the bases. ABDOMEN: Soft, obese, nontender. Bowel sounds are heard. No organomegaly noted. EXTREMITIES: 2+ peripheral pulses with trace evidence of peripheral edema and no calf tenderness noted. NEUROLOGIC patient is awake, alert and oriented -3. . - Labs CBC & Chem 7: 06/11/16 03:55 06/11/16 03:55 Labs: Abnormal Lab Results - Last 24 Hours (Table) 06/11/16 06/11/16 06/11/16 Range/Units 15:47 17:36 19:55 APTT (22.0-30.0) sec POC Glucose (mg/dL) 236 H 302 H (75-99) mg/dL Total Creatine Kinase 955 H (55-170) U/L CK-MB (CK-2) 22.6 H* (0.0-2.4) ng/mL Triglycerides (<150) mg/dL Cholesterol (<200) mg/dL LDL Cholesterol, Calc (0-99) mg/dL HDL Cholesterol (40-60) mg/dL 06/12/16 06/12/16 06/12/16 Range/Units 05:43 05:45 05:47 APTT 32.4 H (22.0-30.0) sec POC Glucose (mg/dL) 171 H (75-99) mg/dL Total Creatine Kinase (55-170) U/L CK-MB (CK-2) (0.0-2.4) ng/mL Triglycerides 340 H (<150) mg/dL Cholesterol 232 H (<200) mg/dL LDL Cholesterol, Calc 125 H (0-99) mg/dL HDL Cholesterol 39 L (40-60) mg/dL 06/12/16 Range/Units 11:39 APTT (22.0-30.0) sec POC Glucose (mg/dL) 324 H (75-99) mg/dL Total Creatine Kinase (55-170) U/L CK-MB (CK-2) (0.0-2.4) ng/mL Triglycerides (<150) mg/dL Cholesterol (<200) mg/dL LDL Cholesterol, Calc (0-99) mg/dL HDL Cholesterol (40-60) mg/dL Assessment and Plan Plan: Assessment and Plan #1 symptoms of sudden onset of shortness of breath, likely secondary to exacerbation of COPD with associated tracheobronchitis. Mild diastolic heart failure. #2 chest pain, somewhat atypical in nature. Initial troponin negative. EKG shows a normal sinus rhythm with no acute changes. We will obtain to further troponin values as well as an echocardiogram with Doppler study. CTA of the chest negative for PE. #3 known history of coronary artery disease with prior RCA stent in 2012, moderate LAD stenosis at that time. Subsequent to that patient did undergo a stent placement at the [facility] in [place], exact details unavailable. #4 hypertension # 5 hyperlipidemia #6 COPD #7 nicotine dependence Plan Cardiology's perspective, we'll discontinue the IV Lasix today and start the patient on oral diuretics. Continue IV antibiotics and steroids along with breathing treatments. DNP note has been reviewed, I agree with a documented findings and plan of care. Patient was seen and examined.
--- NOTE | 2016-06-12 14:01 | PN ---
CHIEF COMPLAINT: Exacerbation of COPD. HISTORY OF PRESENT ILLNESS: This gentleman is doing fairly well and breathing has improved. He has been seen by Cardiology. PHYSICAL EXAM: His chest is quite clear today and cardiac exam is normal. The abdomen is soft, nontender. IMPRESSION: 1. Exacerbation of chronic obstructive pulmonary disease. 2. Coronary artery disease. PLAN: Increase activity and possibly home today, depending on Cardiology's recommendations.
[2016-06-12 17:09] LABS: Glucose,Whole Blood 189 mg/dL (75-99)
[2016-06-12 20:06] LABS: Glucose,Whole Blood 217 mg/dL (75-99)
[2016-06-12] MEDS: ATORVASTATIN 80 MG TAB PO SCH (20:24)
[2016-06-12] MEDS: MONTELUKAST 10 MG TAB PO SCH (20:24)
[2016-06-12] MEDS: BENZOCAINE/MENTHOL LOZENG 1 EACH LOZENGE MUCOUS MEM PRN (23:19)
[2016-06-13] MEDS: BENZOCAINE/MENTHOL LOZENG 1 EACH LOZENGE MUCOUS MEM PRN ×2 (03:21→07:57)
[2016-06-13 05:59] LABS: Glucose,Whole Blood 200 mg/dL (75-99)
[2016-06-13] MEDS: PANTOPRAZOLE 40 MG TABLET PO SCH (06:05)
[2016-06-13] MEDS: INSULIN LISPRO (humaLOG) 300 UNIT/3 ML VIAL SQ SCH ×2 (06:05→12:11)
[2016-06-13] MEDS: GABAPENTIN 300 MG CAP PO SCH ×2 (07:37→12:11)
[2016-06-13] MEDS: CLOPIDOGREL 75 MG TAB PO SCH (07:38)
[2016-06-13] MEDS: ASPIRIN 325 MG TAB PO SCH (07:38)
[2016-06-13] MEDS: DOXYCYCLINE 50 MG CAP PO SCH (07:38)
[2016-06-13] MEDS: CYANOCOBALAMIN 500 MCG TAB PO SCH (07:39)
[2016-06-13] MEDS: METOPROLOL TARTRATE 25 MG TAB PO SCH (07:39)
[2016-06-13] MEDS: FUROSEMIDE 40 MG TAB PO SCH (07:39)
[2016-06-13] MEDS: SPIRONOLACTONE 25 MG TAB PO SCH (07:39)
[2016-06-13] MEDS: DULoxetine HCL 60 MG CAPSULE.DR PO SCH (07:40)
[2016-06-13 07:54] VITALS: BP 121/70; RESP 18; TEMP 96.7
[2016-06-13] MEDS: IPRATROPIUM-ALBUTEROL 3 ML NEB INHALATION SCH ×2 (08:53→12:42)
[2016-06-13] MEDS: FORMOTEROL FUMARATE 20 MCG/2 ML NEBU INHALATION SCH (08:53)
[2016-06-13] MEDS: BUDESONIDE 0.5 MG/2 ML NEBU INHALATION SCH (08:53)
[2016-06-13 08:58] VITALS: PULSE 84
[2016-06-13] MEDS ORDERED: AZITHROMYCIN 500 MG TAB PO SCH (09:00)
[2016-06-13] MEDS ORDERED: predniSONE 20 MG TAB PO SCH (09:00)
[2016-06-13 11:24] LABS: Glucose,Whole Blood 306 mg/dL (75-99)
--- NOTE | 2016-06-13 13:41 | P.DS ---
Providers Date of admission: 06/11/16 06:23 Expected date of discharge: 06/13/16 Attending physician: Jordon Aguila Consults: [facility] Dr. 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 He is here visiting in [place] with family. Patient does have a history of nicotine dependency and continues to smoke 1 pack daily greater than a 40 year history.. Patient does not wear home O2. Patient states he was told he had COPD and does use of a core an albuterol nebulizer and Ventolin. Patient was seen by pulmonology service for an acute exacerbation of COPD with acute bronchitis. Started on IV antibiotics additionally patient has a known history of coronary artery disease with prior coronary stenting.. Patient was seen by pulmonology service. Patient did have a CAT scan of the chest was negative for evidence of a pulmonary emboli. Patient was initiated on IV Lasix. Diuresed effectively. Patient had an echocardiogram done that showed an EF of 55-60%. Cardiology indicated that was no further cardiac workup indicated at this time. Patient was being treated for chest pain atypical with no evidence of acute coronary syndrome. From all consulting physicians patient was felt to be appropriate to be discharged home with the plan the patient will follow-up in [place] with his own primary care provider Impression discharge diagnosis Present on admission shortness of breath suspect due to exacerbation of COPD with acute tracheal bronchitis COPD Known coronary artery disease with prior coronary stenting in 2012 LAD Present on admission chest pain with no evidence of acute coronary syndrome cardiac enzymes 3 sets negative Chronic diastolic heart failure Obesity BMI 35 Dyslipidemia Active tobacco abuse greater than a 40 year history History of prostate cancer Echocardiogram June 11 2016 left ventricular systolic function normal EF 55- 60% no evidence of pulmonary hypertension The above dictated assessment and findings were discussed with dr aguila. Impression and the plan of care have been dictated as directed. Latha Fortune nurse practitioner acting as a scribe for dr aguila Patient Condition at Discharge: Fair Plan - Discharge Summary New Discharge Prescriptions: Azithromycin [Zithromax] 500 mg PO DAILY #7 tab Doxycycline Hyclate [Vibramycin] 100 mg PO BID #28 capsule Montelukast [Singulair] 10 mg PO HS #30 tab predniSONE 20 mg PO DAILY #24 tab Discharge Medication List Albuterol Inhaler [Ventolin Hfa Inhaler] 2 puff INHALATION RT-Q4H PRN 07/04/14 [ History] Aspirin EC [Ecotrin Low Dose] 81 mg PO DAILY 07/04/14 [History] Atorvastatin [Lipitor] 80 mg PO HS 07/04/14 [History] Clopidogrel [Plavix] 75 mg PO DAILY 07/04/14 [History] Gabapentin [Neurontin] 900 mg PO QID 07/04/14 [History] Budesonide/Formoterol Fumarate [Symbicort 160-4.5 Mcg Inhaler] 2 puff INHALATION RT-BID 02/10/15 [History] EPINEPHrine [Epipen 2-Matthew] 0.3 mg IM ONCE PRN 02/10/15 [History] Nitroglycerin Sl Tabs [Nitrostat] 0.4 mg SUBLINGUAL Q5M PRN 02/10/15 [History] Omeprazole [PriLOSEC] 20 mg PO AC-BRKFST 02/10/15 [History] Cyanocobalamin [Vitamin B-12] 1,000 mcg PO DAILY 12/18/15 [History] DULoxetine HCL [Cymbalta] 60 mg PO DAILY 12/18/15 [History] Ergocalciferol (Vitamin D2) [Drisdol] 50,000 unit PO SUTH 12/18/15 [History] Petrolatum, White [Aquaphor] 1 applic TOPICAL DAILY PRN 12/18/15 [History] Furosemide [Lasix] 40 mg PO BID@0900,1600 #60 tab 12/23/15 [Rx] Ipratropium-Albuterol Nebulize [Duoneb 0.5 mg-3 mg/3 ml Soln] 3 ml INHALATION RT -QID ampul.neb 12/23/15 [Rx] Metoprolol Tartrate [Lopressor] 25 mg PO BID #60 tab 12/23/15 [Rx] Spironolactone [Aldactone] 25 mg PO DAILY #30 tab 12/23/15 [Rx] Azithromycin [Zithromax] 500 mg PO DAILY #7 tab 06/13/16 [Rx] Doxycycline Hyclate [Vibramycin] 100 mg PO BID #28 capsule 06/13/16 [Rx] Formoterol Fumarate [Perforomist] 20 mcg INHALATION RT-BID nebu 06/13/16 [Rx] Montelukast [Singulair] 10 mg PO HS #30 tab 06/13/16 [Rx] predniSONE 20 mg PO DAILY #24 tab 06/13/16 [Rx] Follow up Appointment(s)/Referral(s): Jordon Aguila MD [STAFF PHYSICIAN] - 06/14/16 3:00 pm Harper Morales DO [Doctor of Osteopathic Medicine] - 1 Week Patient Instructions/Handouts: COPD (Chronic Obstructive Pulmonary Disease) (DC ) Activity/Diet/Wound Care/Special Instructions: Provide patient with smoking cessation information Discharge Disposition: HOME SELF-CARE
--- NOTE | 2016-06-13 15:39 | P.PN ---
Subjective Principal diagnosis: Shortness of breath This is a 55-year-old gentleman with known history of coronary artery disease and prior RCA stent in 2012, patient also had moderate disease in the LAD at that time, subsequent to that patient did have a stent placed at the [facility] in [place], exact details of that are unavailable. He currently resides in [place]. He has known history also of hypertension, hyperlipidemia, COPD and nicotine dependence. He presents to the hospital with symptoms of a 3 day duration of shortness of breath, he states he also noticed some peripheral edema. Patient has been having intermittent chest heaviness, he states it feels like someone is sitting in his chest. This occurs off and on he's been experiencing this for over one week. For these reasons he came to the emergency room for further evaluation. EKG on arrival here showed a normal sinus rhythm with no acute changes, CTA of the chest was performed which was negative for pulmonary embolism. Patient was initiated on IV Lasix continues to cough up dark colored sputum. Echocardiogram with Doppler study was performed which revealed an ejection fraction of 55-60%. Patient was also initiated on steroids and IV antibiotics. Overall he states he is feeling significantly better today. Hoping to be discharged home. Objective - Vital Signs Vital signs: Vital Signs Temp 96.7 F L 06/13/16 07:52 Pulse 84 06/13/16 09:04 Resp 18 06/13/16 07:52 BP 121/70 06/13/16 07:52 Pulse Ox 95 06/13/16 07:52 Intake & Output 06/12/16 06/13/16 06/13/16 18:59 06:59 18:59 Intake Total 2750 1500 300 Output Total 1350 Balance 1400 1500 300 Weight 115.7 kg Intake: Intake, IV Titration 250 Amount Azithromycin 500 mg In 250 Sodium Chloride 0.9% 250 ml @ 125 mls/hr IVPB DAILY [facility] Rx#:[id number] Oral 2500 1500 300 Output: Urine 1350 Other: # Voids 3 2 # Bowel Movements 0 - Exam PHYSICAL EXAMINATION: HEENT: Head is atraumatic, normocephalic. Pupils equal, round. Neck is supple. There is elevated jugular venous pressure. HEART EXAMINATION: Heart S1, S2 normal. No murmur or gallop heard. CHEST EXAMINATION: Lungs are clear with diminished air entry bilaterally to the bases. ABDOMEN: Soft, obese, nontender. Bowel sounds are heard. No organomegaly noted. EXTREMITIES: 2+ peripheral pulses with trace evidence of peripheral edema and no calf tenderness noted. NEUROLOGIC patient is awake, alert and oriented -3. . - Labs CBC & Chem 7: 06/11/16 03:55 06/11/16 03:55 Labs: Abnormal Lab Results - Last 24 Hours (Table) 06/12/16 06/12/16 06/13/16 Range/Units 17:07 20:05 05:57 POC Glucose (mg/dL) 189 H 217 H 200 H (75-99) mg/dL 06/13/16 Range/Units 11:07 POC Glucose (mg/dL) 306 H (75-99) mg/dL Assessment and Plan Plan: Assessment and Plan #1 symptoms of sudden onset of shortness of breath, likely secondary to exacerbation of COPD with associated tracheobronchitis. Mild diastolic heart failure. #2 chest pain, somewhat atypical in nature. Initial troponin negative. EKG shows a normal sinus rhythm with no acute changes. We will obtain to further troponin values as well as an echocardiogram with Doppler study. CTA of the chest negative for PE. #3 known history of coronary artery disease with prior RCA stent in 2012, moderate LAD stenosis at that time. Subsequent to that patient did undergo a stent placement at the [facility] in [place], exact details unavailable. #4 hypertension # 5 hyperlipidemia #6 COPD #7 nicotine dependence Plan Cardiology's perspective, patient may be able to be discharged once cleared by the primary care doctor. 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 DNP note has been reviewed, I agree with a documented findings and plan of care. Patient was seen and examined.
--- NOTE | 2016-06-13 18:54 | PN ---
DATE OF SERVICE: 06/13/2016 CHIEF COMPLAINT: Difficulty breathing. HISTORY OF PRESENT ILLNESS: This gentleman is doing well, and his chest is clear. He can probably go home today. Cardiac workup is negative. PHYSICAL EXAMINATION: CHEST: Clear. CARDIAC: Normal. ABDOMEN: Soft, nontender. Protuberant. IMPRESSION: 1. Exacerbation of chronic obstructive pulmonary disease. 2. Coronary artery disease. PLAN: Home today. This will be arranged by the nurse practitioner.
[2016-06-17] MEDS ORDERED: ERGOCALCIFEROL 50,000 UNIT CAP PO SCH (09:00)
== END 2016-06-13 14:46 | disposition home or self-care (01) | DRG 191 ==
LOC: EC 03:33 → 6SEL 06:23
PROVIDERS: ADMIT Family Medicine; ATTEND Family Medicine
DX: J44.0 Chronic obstructive pulmonary disease with (acute) lower respiratory infection (principal); I50.32 Chronic diastolic (congestive) heart failure; M62.82 Rhabdomyolysis; E78.5 Hyperlipidemia, unspecified; G62.9 Polyneuropathy, unspecified; J44.1 Chronic obstructive pulmonary disease with (acute) exacerbation; I10 Essential (primary) hypertension; J45.909 Unspecified asthma, uncomplicated; G47.33 Obstructive sleep apnea (adult) (pediatric); J20.9 Acute bronchitis, unspecified; I25.2 Old myocardial infarction; I25.10 Atherosclerotic heart disease of native coronary artery without angina pectoris; K21.9 Gastro-esophageal reflux disease without esophagitis; R74.8 Abnormal levels of other serum enzymes; R00.0 Tachycardia, unspecified; M54.9 Dorsalgia, unspecified; G89.29 Other chronic pain; F17.210 Nicotine dependence, cigarettes, uncomplicated; Z95.5 Presence of coronary angioplasty implant and graft; Z82.5 Family history of asthma and other chronic lower respiratory diseases; Z80.1 Family history of malignant neoplasm of trachea, bronchus and lung; Z85.46 Personal history of malignant neoplasm of prostate; Z71.6 Tobacco abuse counseling; Z87.01 Personal history of pneumonia (recurrent); Z86.19 Personal history of other infectious and parasitic diseases; Z87.828 Personal history of other (healed) physical injury and trauma; Z82.49 Family history of ischemic heart disease and other diseases of the circulatory system; Z90.79 Acquired absence of other genital organ(s); Z80.8 Family history of malignant neoplasm of other organs or systems; Z88.5 Allergy status to narcotic agent; Z88.8 Allergy status to other drugs, medicaments and biological substances; Z91.030 Bee allergy status; Z79.02 Long term (current) use of antithrombotics/antiplatelets; Z79.82 Long term (current) use of aspirin; Z79.51 Long term (current) use of inhaled steroids; Z79.899 Other long term (current) drug therapy
CPT/HCPCS: 36415; 71020; 71275; 80053; 80061; 82550; 82553; 83036; 83880; 84484; 85025; 85379; 85610; 85730; 93005; 93306; 94640; 94760; 99285

== ENCOUNTER 2016-06-23 01:57 | Observation (INO) | payer OTHER ==
--- NOTE | 2016-06-23 02:44 | XR ---
EXAMINATION TYPE: XR chest 1V portable DATE OF EXAM: 06/23/2016 2:24 AM COMPARISON: 06/11/2016 HISTORY: Shortness of breath asthma COPD chest pain TECHNIQUE: Single frontal view of the chest is obtained. FINDINGS: There is no focal air space opacity, pleural effusion, or pneumothorax seen. The cardiac silhouette size is within normal limits. Chronic lung changes are suggested. The osseous structures are intact. IMPRESSION: 1. Chronic lung changes. 2. No active lung infiltrates. 3. No significant interval change.
--- NOTE | 2016-06-23 03:10 | ED ---
Chest Pain HPI - General Chief Complaint: Chest Pain Stated Complaint: Chest Pain Time Seen by Provider: 06/23/16 02:01 Source: patient, RN notes reviewed Mode of arrival: ambulatory Limitations: no limitations - History of Present Illness MD Complaint: chest pain Onset/Timin -: hour(s) Onset: during rest Pain Location: substernal Pain Radiation: neck Severity: severe Quality: tightness Consistency: constant Improves With: nothing Worsens With: nothing Anginal Symptoms: dyspnea - Related Data Home Medications Medication Instructions Recorded Confirmed Albuterol Inhaler [Ventolin Hfa 2 puff INHALATION RT-Q4H PRN 07/04/14 06/23/16 Inhaler] Aspirin EC [Ecotrin Low Dose] 81 mg PO DAILY 07/04/14 06/23/16 Atorvastatin [Lipitor] 80 mg PO HS 07/04/14 06/23/16 Clopidogrel [Plavix] 75 mg PO DAILY 07/04/14 06/23/16 Gabapentin [Neurontin] 900 mg PO QID 07/04/14 06/23/16 Budesonide/Formoterol Fumarate 2 puff INHALATION RT-BID 02/10/15 06/23/16 [Symbicort 160-4.5 Mcg Inhaler] EPINEPHrine [Epipen 2-Matthew] 0.3 mg IM ONCE PRN 02/10/15 06/23/16 Nitroglycerin Sl Tabs [Nitrostat] 0.4 mg SUBLINGUAL Q5M PRN 02/10/15 06/23/16 Omeprazole [PriLOSEC] 20 mg PO AC-BRKFST 02/10/15 06/23/16 Cyanocobalamin [Vitamin B-12] 1,000 mcg PO DAILY 12/18/15 06/23/16 DULoxetine HCL [Cymbalta] 60 mg PO DAILY 12/18/15 06/23/16 Ergocalciferol (Vitamin D2) 50,000 unit PO SUTH 12/18/15 06/23/16 [Drisdol] Petrolatum, White [Aquaphor] 1 applic TOPICAL DAILY PRN 12/18/15 06/23/16 Previous Rx's Medication Instructions Recorded Furosemide [Lasix] 40 mg PO BID@0900,1600 #60 tab 12/23/15 Ipratropium-Albuterol Nebulize 3 ml INHALATION RT-QID ampul.neb 12/23/15 [Duoneb 0.5 mg-3 mg/3 ml Soln] Metoprolol Tartrate [Lopressor] 25 mg PO BID #60 tab 12/23/15 Spironolactone [Aldactone] 25 mg PO DAILY #30 tab 12/23/15 Azithromycin [Zithromax] 500 mg PO DAILY #7 tab 06/13/16 Doxycycline Hyclate [Vibramycin] 100 mg PO BID #28 capsule 06/13/16 Formoterol Fumarate [Perforomist] 20 mcg INHALATION RT-BID nebu 06/13/16 Montelukast [Singulair] 10 mg PO HS #30 tab 06/13/16 predniSONE 20 mg PO DAILY #24 tab 06/13/16 Allergies Allergy/AdvReac Type Severity Reaction Status Date / Time pregabalin [From Lyrica] Allergy Dyspnea Verified 06/23/16 02:05 venom-honey bee Allergy Unknown Verified 06/23/16 02:05 [bee venom (honey bee)] atorvastatin AdvReac MUSCLE PAIN Verified 06/23/16 02:05 isosorbide mononitrate AdvReac HEADACHES Verified 06/23/16 02:05 [From Imdur] rosuvastatin calcium AdvReac MUSCLE PAIN Verified 06/23/16 02:05 [From Crestor] tramadol AdvReac SUICIDAL Verified 06/23/16 02:05 THOUGHTS venlafaxine AdvReac SUICIDAL Verified 06/23/16 02:05 THOUGHTS Review of Systems ROS Statement: Those systems with pertinent positive or pertinent negative responses have been documented in the HPI. ROS Other: All systems not noted in ROS Statement are negative. Constitutional: Denies: fever, chills Respiratory: Reports: dyspnea, wheezes. Denies: cough, hemoptysis Cardiovascular: Reports: chest pain. Denies: palpitations, edema, syncope Gastrointestinal: Denies: abdominal pain, nausea, vomiting, melena, hematochezia Genitourinary: Denies: dysuria Musculoskeletal: Reports: back pain (Chronic) Skin: Denies: rash Neurological: Denies: headache, weakness, numbness EKG Findings - EKG Results: EKG: interpreted by JUAN MANUEL WNL, sinus rhythm (Rate 97 bpm), normal axis, normal QRS, normal ST/T Past Medical History Past Medical History: Asthma, Coronary Artery Disease (CAD), Cancer, Heart Failure, COPD, GERD/Reflux, Hyperlipidemia, Hypertension, Myocardial Infarction ([place]), Pneumonia, Prostate Disorder Additional Past Medical History / Comment(s): [place] x 2, SAMIR with CPAP, chronic CHF , bilateral lower extremity edema, peripheral neuropathy bilateral legs/feet, prostate cancer with surgery, sinus infections. Last Myocardial Infarction Date:: 2014 History of Any Multi-Drug Resistant Organisms: None Reported Past Surgical History: Heart Catheterization With Stent, Orthopedic Surgery, Prostate Surgery Additional Past Surgical History / Comment(s): RT LEG surgery d/t trauma, cardiac stents x 2, prostatectomy Past Anesthesia/Blood Transfusion Reactions: No Reported Reaction Date of Last Stent Placement:: 02/15/2014 Past Psychological History: No Psychological Hx Reported Additional Psychological History / Comment(s): Pt resides in [place]. He is in [place] visiting with family for the holidays. He is independent. He uses no device. He drives. He has a nebulizer. 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 He [facility] [place] [facility] the [facility]. Smoking Status: Current every day smoker Past Alcohol Use History: Occasional Additional Past Alcohol Use History / Comment(s): Pt started smoking in 1971 and is a ppd smoker. Past Drug Use History: None Reported - Past Family History Mother Family Medical History: COPD Additional Family Medical History / Comment(s): abdominal aneurysm. Currently being set up in hospice. Father Family Medical History: Cancer Additional Family Medical History / Comment(s): : lung ca with brain mets. General Exam Limitations: no limitations General appearance: alert, in no apparent distress Head exam: Present: atraumatic, normocephalic Eye exam: Present: normal appearance. Absent: scleral icterus, conjunctival injection ENT exam: Present: normal oropharynx Neck exam: Present: normal inspection, full ROM Respiratory exam: Present: normal lung sounds bilaterally. Absent: respiratory distress, wheezes, rales, rhonchi, stridor Cardiovascular Exam: Present: regular rate, normal rhythm, normal heart sounds. Absent: systolic murmur, diastolic murmur, rubs, gallop GI/Abdominal exam: Present: soft, mass. Absent: distended, tenderness, guarding , rebound, pulsatile mass, hernia Extremities exam: Present: normal inspection, normal capillary refill. Absent: pedal edema, calf tenderness Back exam: Present: normal inspection. Absent: CVA tenderness (R), CVA tenderness (L) Neurological exam: Present: alert Skin exam: Present: warm, dry, intact, normal color. Absent: rash Course Vital Signs 06/23/16 06/23/16 06/23/16 02:00 03:20 04:29 Temperature 98.4 F 98.1 F Pulse Rate 92 52 L 52 L Respiratory 22 20 16 Rate Blood Pressure 107/57 107/52 130/81 O2 Sat by Pulse 95 98 91 L Oximetry Disposition Clinical Impression: Chest pain, COPD (chronic obstructive pulmonary disease) Disposition: ADMITTED IP TO THIS HOSP Condition: Fair
[2016-06-23 03:24] LABS: Basophils % (A) 1 %; CH 33.1; CHCM 33.9; Eosinophils # (A) 0.1 k/uL (0-0.7); Eosinophils % (A) 1 %; HCT 47.1 % (39.0-53.0); HGB 15.9 gm/dL (13.0-17.5); Luc # (Auto) 0.11; Luc % (Auto) 1; Lymphocytes # (A) 2.9 k/uL (1.0-4.8); Lymphocytes % (A) 33 %; MCH 33.1 pg (25.0-35.0); MCHC 33.7 g/dL (31.0-37.0); MCV 98.2 fL (80.0-100.0); Macrocytosis Slight; Mean Platelet Volume 6.9; Monocytes # (A) 0.5 k/uL (0-1.0); Monocytes % (A) 6 %; Neutrophils # (A) 5.3 k/uL (1.3-7.7); Neutrophils % (A) 59 %; RBC 4.79 m/uL (4.30-5.90); RDW 15.6 % (11.5-15.5); WBC (Perox) 8.84
[2016-06-23 03:38] LABS: ALT 69 U/L (21-72); AST 39 U/L (17-59); Alkaline Phosphatase 74 U/L (38-126); Anion Gap 10 mmol/L; Blood Urea Nitrogen 33 mg/dL (9-20); Calcium 9.4 mg/dL (8.4-10.2); Carbon Dioxide 26 mmol/L (22-30); Chloride 102 mmol/L (98-107); Glucose 128 mg/dL (74-99); Magnesium 2.3 mg/dL (1.6-2.3); Non-African American GFR(MDRD) >60 (>60 ml/min/1.73 sqM); Potassium 4.3 mmol/L (3.5-5.1); Sodium 138 mmol/L (137-145); Total Bilirubin 0.4 mg/dL (0.2-1.3); Total Protein 6.7 g/dL (6.3-8.2)
[2016-06-23 03:52] LABS: Creatine Kinase 222 U/L (55-170)
[2016-06-23 04:06] LABS: Creatine Kinase MB 8.3 ng/mL (0.0-2.4); Troponin I <0.012 ng/mL (0.000-0.034)
[2016-06-23] MEDS ORDERED: NITROGLYCERIN SL TABS 0.4 MG TAB SUBLINGUAL PRN (06:07)
[2016-06-23] MEDS ORDERED: ALBUTEROL NEBULIZED 2.5 MG/3 ML INHALATION PRN (06:10)
[2016-06-23] MEDS ORDERED: PETROLATUM, WHITE OINT 50 GM TUBE TOPICAL PRN (06:10)
[2016-06-23] MEDS ORDERED: ERGOCALCIFEROL 50,000 UNIT CAP PO SCH (06:15)
[2016-06-23] MEDS: IPRATROPIUM-ALBUTEROL 3 ML NEB INHALATION SCH ×4 (07:50→18:53)
[2016-06-23] MEDS: SYMBICORT 160-4.5 MCG INHALER INHALATION SCH ×2 (07:50→18:53)
[2016-06-23] MEDS: FORMOTEROL FUMARATE 20 MCG/2 ML NEBU INHALATION SCH ×2 (07:51→18:58)
[2016-06-23 09:38] LABS: Creatine Kinase 226 U/L (55-170)
[2016-06-23 09:51] LABS: Troponin I <0.012 ng/mL (0.000-0.034)
[2016-06-23 10:03] LABS: Creatine Kinase MB 9.7 ng/mL (0.0-2.4)
[2016-06-23] MEDS: PANTOPRAZOLE 40 MG TABLET PO SCH (10:08)
[2016-06-23] MEDS: DOXYCYCLINE 50 MG CAP PO SCH ×2 (10:08→20:17)
[2016-06-23] MEDS: METOPROLOL TARTRATE 25 MG TAB PO SCH ×2 (10:09→20:17)
[2016-06-23] MEDS: GABAPENTIN 300 MG CAP PO SCH ×4 (10:09→21:23)
[2016-06-23] MEDS: CYANOCOBALAMIN 500 MCG TAB PO SCH (10:10)
[2016-06-23] MEDS: DULoxetine HCL 60 MG CAPSULE.DR PO SCH (10:11)
[2016-06-23] MEDS: SPIRONOLACTONE 25 MG TAB PO SCH (10:11)
[2016-06-23] MEDS: FUROSEMIDE 40 MG TAB PO SCH ×2 (10:11→16:29)
[2016-06-23] MEDS: predniSONE 20 MG TAB PO SCH (11:36)
[2016-06-23] MEDS: CLOPIDOGREL 75 MG TAB PO SCH (11:36)
[2016-06-23] MEDS ORDERED: HYDROcodone/APAP 5-325MG 1 EACH TAB PO PRN (11:42)
[2016-06-23 14:22] VITALS: BMI 35.2
--- NOTE | 2016-06-23 14:27 | P.HPCAR ---
History of Present Illness Patient comes back to the hospital yet again with chest discomfort. The pain started around the jaw the last 2-3 days and then goes into the chest. He describes is exactly like last time that someone is sitting on his chest. ECG is normal cardiac enzymes are normal Past history of coronary artery disease status post stenting, hypertension dyslipidemia COPD nicotine dependence and obesity Review of systems: No fever chills or rigors, no cough, phlegm or expectoration , no nausea, vomiting or diarrhea, no hematuria, dysuria, no musculoskeletal complaints, no strokes or seizures, no skin lesions. On examination he is afebrile, blood pressure 125/62 mmHg heart rate is in the 80s head and neck examination is normal. Heart sounds S1 and S2 are normal, breath sounds are normal no rhonchi no crackles, no rub no gallop over the precordium, abdomen soft nontender, extremities warm no edema ECG is normal Labs are reviewed saccadic enzymes are normal Impression Recurrent episodes of chest tightness and heaviness associated with jaw and arm discomfort Normal cardiac enzymes Known coronary artery disease status post coronary stenting in the past Hypertension Dyslipidemia Obesity Suggest Continue treatment for atherosclerosis and coronary artery disease. He is already on appropriate medical treatment Dobutamine stress echo tomorrow Further management of Physical Exam Vitals: Vital Signs Temp Pulse Pulse Resp BP BP Pulse Ox 06/23/16 12:00 93 18 125/62 94 L 06/23/16 11:53 80 06/23/16 11:45 84 06/23/16 07:58 88 06/23/16 07:53 86 89 L 06/23/16 06:45 97.7 F 84 18 128/76 90 L 06/23/16 06:26 96.8 F L 88 20 132/78 94 L Intake and Output 06/22/16 06/23/16 06/23/16 22:59 06:59 14:59 Other: Voiding Method Toilet Weight 114.759 kg Past Medical History Past Medical History: Asthma, Coronary Artery Disease (CAD), Cancer, Heart Failure, COPD, GERD/Reflux, Hyperlipidemia, Hypertension, Myocardial Infarction ([place]), Pneumonia, Prostate Disorder Additional Past Medical History / Comment(s): [place] x 2, SAMIR with CPAP, chronic CHF , bilateral lower extremity edema, peripheral neuropathy bilateral legs/feet, prostate cancer with surgery, sinus infections. Last Myocardial Infarction Date:: 2014 History of Any Multi-Drug Resistant Organisms: None Reported Past Surgical History: Heart Catheterization With Stent, Orthopedic Surgery, Prostate Surgery Additional Past Surgical History / Comment(s): RT LEG surgery d/t trauma, cardiac stents x 2, prostatectomy Past Anesthesia/Blood Transfusion Reactions: No Reported Reaction Date of Last Stent Placement:: 02/15/2014 Past Psychological History: No Psychological Hx Reported Additional Psychological History / Comment(s): Pt resides in [place]. He is in [place] visiting with family for the holidays. He is independent. He uses no device. He drives. He has a nebulizer. 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 He [facility] [place] [facility] the past. Smoking Status: Current every day smoker Past Alcohol Use History: Occasional Additional Past Alcohol Use History / Comment(s): Pt started smoking in 1971 and is a ppd smoker. Past Drug Use History: None Reported - Past Family History Mother Family Medical History: COPD Additional Family Medical History / Comment(s): abdominal aneurysm. Currently being set up in hospice. Father Family Medical History: Cancer Additional Family Medical History / Comment(s): : lung ca with brain mets. Physical Examination Vital Signs Temp Pulse Pulse Resp BP BP Pulse Ox 06/23/16 12:00 93 18 125/62 94 L 06/23/16 11:53 80 06/23/16 11:45 84 06/23/16 07:58 88 06/23/16 07:53 86 89 L 06/23/16 06:45 97.7 F 84 18 128/76 90 L 06/23/16 06:26 96.8 F L 88 20 132/78 94 L Intake and Output 06/22/16 06/23/16 06/23/16 22:59 06:59 14:59 Other: Voiding Method Toilet Weight 114.759 kg Results 06/23/16 03:20 06/23/16 03:20 Cardiac Enzymes 06/23/16 Range/Units 08:41 CK-MB (CK-2) 9.7 H* (0.0-2.4) ng/mL Troponin I <0.012 (0.000-0.034) ng/mL Current Medications Generic Name Dose Route Start Last Admin Trade Name Freq PRN Reason Stop Dose Admin Acetaminophen/Hydrocodone Bitart 1 each 06/23/16 11:42 06/23/16 12:35 [place] 5-325 PO 1 each Q4HR PRN Administration Pain Albuterol Sulfate 2.5 mg 06/23/16 06:10 Ventolin Nebulized INHALATION RT-Q4H PRN Shortness Of Breath Albuterol/Ipratropium 3 ml 06/23/16 08:00 06/23/16 11:44 Duoneb 0.5 Mg-3 Mg/3 Ml Soln INHALATION 3 ml RT-QID CHUY Administration Aspirin 325 mg 06/24/16 09:00 Aspirin PO DAILY [facility] Atorvastatin Calcium 80 mg 06/23/16 21:00 Lipitor PO HS [facility] Budesonide/Formoterol Fumarate 2 puff 06/23/16 08:00 06/23/16 07:50 Symbicort 160-4.5 Mcg Inhaler INHALATION 2 puff RT-BID CHUY Administration Clopidogrel Bisulfate 75 mg 06/23/16 09:00 06/23/16 11:36 Plavix PO 75 mg DAILY [facility] Administration Cyanocobalamin 1,000 mcg 06/23/16 09:00 06/23/16 10:10 Vitamin B-12 PO 1,000 mcg DAILY [facility] Administration Doxycycline Monohydrate 100 mg 06/23/16 09:00 06/23/16 10:08 Vibramycin PO 100 mg BID CHU[facility] Administration Duloxetine HCl 60 mg 06/23/16 09:00 06/23/16 10:11 Cymbalta PO 60 mg DAILY [facility] Administration Ergocalciferol 50,000 unit 06/23/16 06:15 06/23/16 10:10 Vitamin D2 PO Not Given [facility] Formoterol Fumarate 20 mcg 06/23/16 08:00 06/23/16 07:51 Perforomist INHALATION Not Given RT-BID [facility] Furosemide 40 mg 06/23/16 09:00 06/23/16 10:11 Lasix PO 40 mg BID@0900,1600 [facility] Administration Gabapentin 900 mg 06/23/16 09:00 06/23/16 11:56 Neurontin PO Not Given QID [facility] Metoprolol Tartrate 25 mg 06/23/16 09:00 06/23/16 10:09 Lopressor PO 25 mg BID [facility] Administration Montelukast Sodium 10 mg 06/23/16 21:00 Singulair PO HS [facility] Nitroglycerin 0.4 mg 06/23/16 06:07 Nitrostat SUBLINGUAL Q5M PRN Chest Pain Pantoprazole Sodium 40 mg 06/23/16 07:30 06/23/16 10:08 Protonix PO 40 mg AC-BRKFST [facility] Administration Petrolatum 1 applic 06/23/16 06:10 Aquaphor TOPICAL DAILY PRN Dry Skin Prednisone 20 mg 06/23/16 09:00 06/23/16 11:36 PO 20 mg DAILY [facility] Administration Spironolactone 25 mg 06/23/16 09:00 06/23/16 10:11 Aldactone PO 25 mg DAILY [facility] Administration Intake and Output 06/22/16 06/23/16 06/23/16 22:59 06:59 14:59 Other: Voiding Method Toilet Weight 114.759 kg
[2016-06-23] MEDS ORDERED: DOBUTamine DRIP for NUC MED 500 MG in DEXTROSE/WATER 1 250ML.BAG IV ONE (14:47)
[2016-06-23 15:50] LABS: Creatine Kinase 214 U/L (55-170)
[2016-06-23 16:04] LABS: Troponin I <0.012 ng/mL (0.000-0.034)
[2016-06-23 16:14] LABS: Creatine Kinase MB 8.7 ng/mL (0.0-2.4)
[2016-06-23] MEDS ORDERED: ATORVASTATIN 80 MG TAB PO SCH (21:00)
[2016-06-23] MEDS ORDERED: MONTELUKAST 10 MG TAB PO SCH (21:00)
[2016-06-24] MEDS ORDERED: DOBUTamine DRIP for NUC MED 500 MG in DEXTROSE/WATER 1 250ML.BAG IV ONE (05:00)
[2016-06-24 05:30] LABS: Cholesterol 270 mg/dL (<200); HDL Cholesterol 28 mg/dL (40-60)
[2016-06-24 05:46] LABS: Triglycerides 1028 mg/dL (<150)
[2016-06-24] MEDS: IPRATROPIUM-ALBUTEROL 3 ML NEB INHALATION SCH ×3 (08:07→16:02)
[2016-06-24] MEDS: SYMBICORT 160-4.5 MCG INHALER INHALATION SCH (08:08)
[2016-06-24] MEDS: FORMOTEROL FUMARATE 20 MCG/2 ML NEBU INHALATION SCH (08:09)
[2016-06-24] MEDS ORDERED: ASPIRIN 325 MG TAB PO SCH (09:00)
[2016-06-24] MEDS ORDERED: METOPROLOL TARTRATE 5 MG/5 ML VIAL IVP ONE (11:30)
[2016-06-24] MEDS ORDERED: ATROPINE SULFATE 0.1 MG/ML 10ML SYRINGE ONE (11:30)
--- NOTE | 2016-06-24 12:02 | HP ---
DATE OF ADMISSION: CHIEF COMPLAINT: Chest pain. HISTORY OF PRESENT ILLNESS: Mr. Matamoros is a 55-year-old male with known history of multiple medical problems including coronary artery and has a history of stent placement, hypertension, hyperlipidemia, COPD and nicotine dependence and morbid obesity with body mass index of 35.3. Came to the hospital with complaints of chest pain, mainly midsternal region and radiated to his back, both sides of the jaw and also along the left arm him making him come to the hospital. Patient felt like somebody sitting on his chest. Denied any dizziness and no orthopnea, no PND. Patient does have underlying severe chronic obstructive pulmonary disease. EKG is normal sinus rhythm. Cardiac enzymes are normal at this time x3. No recent ( ). No sick contacts at home. Patient currently staying in [place]. No recent long distance travel. REVIEW OF SYSTEMS: CONSTITUTIONAL: No fever. No chills. RESPIRATORY: No cough or sputum production. CARDIOVASCULAR: No chest pain or short of breath. ABDOMEN: No nausea, vomiting, abdominal pain. GENITOURINARY: Negative. ENDOCRINE: Negative. PSYCHIATRY: Negative. All other 14 point review of systems negative except as above. PAST MEDICAL HISTORY: Includes COPD, nicotine, coronary artery disease with history of stent placement, hypertension, hyperlipidemia, GERD, morbid obesity, obstructive sleep apnea on CPAP, peripheral neuropathy, history of prostate cancer with surgery. PAST SURGICAL HISTORY: Cardiac catheterization with stent placement, orthopedic surgery, prostate surgery, right leg surgery due to trauma, cardiac stents x2, prostatectomy. SOCIAL HISTORY: Patient resides in [place], in [place] visiting his family for the holidays. He is independent. He has no assistive devices. Patient is currently an everyday smoker, started in 1971 and smokes 1 pack per day. Denied any alcohol. Denied any drugs or IVDU. FAMILY HISTORY: Mother had COPD and abdominal aneurysm, father had lung cancer with brain mets. ALLERGIES: Pregabalin, venom honeybee, atorvastatin, Imdur, ( ), tramadol and venlafaxine. HOME MEDICATIONS: Albuterol inhaler, aspirin, atorvastatin, Plavix, gabapentin, Symbicort, ( ), nitroglycerin sublingual tablets, omeprazole, ( ), Cymbalta, vitamin D2 and Aquaphor. PHYSICAL EXAMINATION: A 55-year-old male sitting in his bed comfortably. Awake, alert, oriented x3. Appears to be in no apparent distress. VITALS: Blood pressure is 120/62, pulse is 93, respirations 18, temperature afebrile, pulse ox 96% on room air. HEENT: Atraumatic, Neck is supple. No JVD. CVS: S1, S2 heard. No murmurs, no gallop. LUNGS: Bilateral air entry diminished. Nonlabored breathing. No wheezing. ABDOMEN: Soft, nontender. Bowel sounds regular. [employer]: Awake, alert and oriented x3. No focal neurologic deficit. No edema. No clubbing or cyanosis. PSYCHIATRIC: Cooperative. LABORATORY DATA: WBC 9.0, hemoglobin 15.9, platelets 214. Sodium 138, potassium 4.3, chloride 102, bicarbonate 23, BUN 33, creatinine 1.1. CK-MB 222. Troponin x3 negative. Albumin 4.0. EKG showed normal sinus rhythm. Chest x-ray: Chronic lung changes. No active lung infiltrates. No interval change. IMPRESSION: 1. Angina. Patient did have chest tightness with tingling sensation to the jaw and left arm discomfort. 2. History of coronary artery disease, history of stent placement. 3. Chronic obstructive pulmonary disease and chronic lung changes. 4. Hypertension. 5. Hyperlipidemia. 6. Morbid obesity with body mass index of 35.4. 7. History of myocardial infarction. 8. History of prostate cancer with surgical resection. 9. Gastroesophageal reflux disease. 10. Obstructive sleep apnea on CPAP. 11. Bilateral lower extremity peripheral neuritis. 12. DVT prophylaxis. DISCUSSION AND PLAN: Will continue tele monitoring, serial EKGs and troponins are negative. Cardiology has seen the patient and continue the aspirin, Plavix and beta blockers. Will have stress echo tomorrow as per cardiology. Will follow closely. Further recommendations based on clinical results. [facility]
[2016-06-24 12:10] VITALS: BP 132/85; RESP 18; TEMP 97.7
[2016-06-24] MEDS: GABAPENTIN 300 MG CAP PO SCH ×3 (12:41→17:06)
[2016-06-24] MEDS: DOXYCYCLINE 50 MG CAP PO SCH (12:41)
[2016-06-24] MEDS: CYANOCOBALAMIN 500 MCG TAB PO SCH (12:42)
[2016-06-24] MEDS: PANTOPRAZOLE 40 MG TABLET PO SCH (12:42)
[2016-06-24] MEDS: DULoxetine HCL 60 MG CAPSULE.DR PO SCH (12:42)
[2016-06-24] MEDS: SPIRONOLACTONE 25 MG TAB PO SCH (12:42)
[2016-06-24] MEDS: predniSONE 20 MG TAB PO SCH (12:42)
[2016-06-24] MEDS: METOPROLOL TARTRATE 25 MG TAB PO SCH (12:42)
[2016-06-24] MEDS: CLOPIDOGREL 75 MG TAB PO SCH (12:42)
[2016-06-24] MEDS: FUROSEMIDE 40 MG TAB PO SCH ×2 (12:43→17:07)
--- NOTE | 2016-06-24 14:09 | ECHOS ---
DATE OF SERVICE: 06/24/16 AGE: 55Y SEX: M HT: 71 WT: 253lbs. Protocol Teofilo: Others: Stage: 4 Dur. of Exercise: 12:00 *Heart Rate Blood Pressure *Rest: 84 Rest: 94/61 * *Max. Achieved: 162 Maximum BP: 117/58 85% PMHR: 141 100% PMHR: 166 *METS: 4 INDICATIONS: Chest pain, shortness of breath and palpitations. MEDICATIONS: The test is being done to evaluate symptoms of chest pain, shortness of breath and palpitations. Baseline EKG showed sinus rhythm with normal [place] interval and QRS duration with low voltage. Blood pressure at rest is a 94/61 with pulse of 84. A standard dose of dobutamine was infused and subsequently 1 mg of atropine was given to attain peak heart rate of 162 with a blood pressure of 178/58. EKGs taken during and after the infusion did not reveal any significant changes from the baseline. Patient did complain of some vague chest discomfort which was resolved after giving IV Lopressor. Baseline echo images were done with contrast stress echo images with dobutamine were also obtained with contrast. There is normal wall motion thickening at rest. There is augmentation of the wall motion thickening in all the segments with stress. FINAL IMPRESSION: 1. Negative dobutamine stress test. 2. Negative dobutamine stress echo with contrast.
[2016-06-24 16:32] VITALS: PULSE 105
--- NOTE | 2016-06-25 22:31 | DS ---
DATE OF ADMISSION: 06/23/2016 DATE OF DISCHARGE: 06/24/2016 PROCEDURE: Dobutamine stress echo. DISCHARGE DIAGNOSES: 1. Angina, ruled out acute coronary syndrome. 2. History of coronary artery disease, status post coronary artery stent placement. 3. Acute chronic obstructive pulmonary disease and chronic lung changes, steroid-dependent. 4. Hypertension. 5. Hyperlipidemia. 6. Morbid obesity with a body mass index of 35.4. 7. History of myocardial infarction. 8. History f prostate cancer, status post resection. 9. Gastroesophageal reflux disease. 10. Obstructive sleep apnea on continuous positive airway pressure at home. 11. Bilateral lower extremity peripheral neuritis. 12. Deep venous thrombosis prophylaxis. HOSPITAL COURSE: A 55-year-old male with multiple medical problems and seen today with COPD, admitted to the hospital with chest discomfort with tightness and tingling sensation of the adjoining left arm and discomfort. Patient had tele monitor and the serial EKGs and troponins are negative. Cardiology has seen the patient, recommended to dobutamine stress echo, showed no inducible ischemia. Negative dobutamine stress echo with compress and patient otherwise is chest pain free now. Patient is to be discharged home to follow up with primary care physician and follow with pulmonary clinic as an outpatient. DISCHARGE PHYSICAL EXAMINATION: A 55-year-old male lying on the bed comfortably, alert and oriented x3. The patient in no apparent distress. VITALS: Blood pressure is 138/87, pulse is 105, respirations 18, temperature afebrile, pulse ox 97% on room air. Laboratory data reviewed. DISCHARGE Physical exam done. Discharge medications include: 1. Albuterol HFA 2 puffs q.4 hourly p.r.n. for short of breath. 2. Aspirin 81 mg p.o. daily. 3. Atorvastatin 80 mg p.o. at bedtime. 4. Clopidogrel 75 mg p.o. daily. 5. Neurontin 900 mg p.o. q.i.d. 6. Symbicort 2 puffs b.i.d. 7. Epinephrine 0.3 mg IM once p.r.n. 8. Nitroglycerin sublingual 0.4 mg q.5 minutes p.r.n. for chest pain. 9. Omeprazole 20 mg a.c. breakfast. 10. Vitamin B12, 1000 mcg daily. 11. Cymbalta 60 mg p.o. daily. 12. Vitamin D2, 50,000 units p.o. Friday, . 13. Petroleum ( ) 1 application topically daily. 14. Lasix 40 mg p.o. b.i.d. 15. DuoNeb ( ) q.i.d. p.r.n. for short of breath. 16. Metoprolol 25 mg p.o. b.i.d. 17. Spironolactone 25 mg p.o. daily. 18. Formoterol 20 mcg inhalation ( ) b.i.d. 19. Singulair 10 mg p.o. at bedtime. 20. Prednisone tapering dose as from previous admission. Home with self-care. Activity as tolerated. Heart-healthy diet. Follow with primary care physician in 1 to 2 days. MTDD
== END 2016-06-24 17:08 | disposition home or self-care (01) ==
LOC: EC 01:57 → 3OBS 06:07
PROVIDERS: ADMIT Hospitalist; ATTEND Hospitalist
DX: I25.119 Atherosclerotic heart disease of native coronary artery with unspecified angina pectoris (principal); I11.0 Hypertensive heart disease with heart failure; I50.9 Heart failure, unspecified; J44.9 Chronic obstructive pulmonary disease, unspecified; E78.5 Hyperlipidemia, unspecified; E66.01 Morbid (severe) obesity due to excess calories; Z68.35 Body mass index [BMI] 35.0-35.9, adult; I25.2 Old myocardial infarction; K21.9 Gastro-esophageal reflux disease without esophagitis; G47.33 Obstructive sleep apnea (adult) (pediatric); G62.9 Polyneuropathy, unspecified; J45.909 Unspecified asthma, uncomplicated; F17.200 Nicotine dependence, unspecified, uncomplicated; Z90.79 Acquired absence of other genital organ(s); Z85.46 Personal history of malignant neoplasm of prostate; Z95.5 Presence of coronary angioplasty implant and graft; Z79.82 Long term (current) use of aspirin; Z79.02 Long term (current) use of antithrombotics/antiplatelets; Z79.899 Other long term (current) drug therapy; Z99.89 Dependence on other enabling machines and devices; Z82.5 Family history of asthma and other chronic lower respiratory diseases; Z80.1 Family history of malignant neoplasm of trachea, bronchus and lung; Z80.8 Family history of malignant neoplasm of other organs or systems; Z79.52 Long term (current) use of systemic steroids
CPT/HCPCS: 36415; 94640 ×4; 94760; 93005; 93350; 93017; 80061; 80053; 82550; 82553; 83735; 84484; 85025; 71010; 99285; G0378 ×2; J1250; Q9957; J7512 ×2

== ENCOUNTER 2017-10-09 12:40 | Emergency (ER) | payer OTHER ==
--- NOTE | 2017-10-09 14:17 | ED ---
General Adult HPI - General Chief complaint: Extremity Problem,Nontraumatic Stated complaint: R Foot Pain Time Seen by Provider: 10/09/17 14:16 Source: patient Mode of arrival: ambulatory Limitations: no limitations - History of Present Illness Initial comments: Patient presents with pain in right lower extremity. Patient states he had surgery 5 weeks ago with a plate and screws placed for a right ankle fracture. Patient states she is in a walking boot when active, takes it off when he is sitting or sleeping. States over the past 2 weeks she's had progressively worsening pain in the right lower extremity. Patient states he has peripheral neuropathy in his feet bilaterally, denies any changes in sensation in the right lower extremity. Patient states the leg feels cold to him, but when he touches it it's warm, however this is also chronic for him. He states he is a borderline diabetic, not currently on medications. Patient never been diagnosed with peripheral vascular disease, however states he is on Plavix for 2 stents in his heart. Patient denies any new trauma to the leg. Patient denies any rashes. Notes small amount of yellow fluid at incision sites. Patient states he was diagnosed with a pulmonary embolism following his surgery , is supposed Manzer also, however he just got the prescription yesterday and has not filled it yet. Denies history of DVT. Patient denies weakness in the leg. Patient denies fevers, chills, nausea, vomiting. - Related Data Home Medications Medication Instructions Recorded Confirmed Albuterol Inhaler [Ventolin Hfa 2 puff INHALATION RT-Q4H PRN 07/04/14 10/09/17 Inhaler] Aspirin EC [Ecotrin Low Dose] 81 mg PO DAILY 07/04/14 10/09/17 Atorvastatin [Lipitor] 80 mg PO HS 07/04/14 10/09/17 Clopidogrel [Plavix] 75 mg PO DAILY 07/04/14 10/09/17 Gabapentin [Neurontin] 300 mg PO QID 07/04/14 10/09/17 Budesonide/Formoterol Fumarate 2 puff INHALATION RT-BID 02/10/15 10/09/17 [Symbicort 160-4.5 Mcg Inhaler] EPINEPHrine [Epipen 2-Matthew] 0.3 mg IM ONCE PRN 02/10/15 10/09/17 Nitroglycerin Sl Tabs [Nitrostat] 0.4 mg SUBLINGUAL Q5M PRN 02/10/15 10/09/17 Omeprazole [PriLOSEC] 20 mg PO DAILY 02/10/15 10/09/17 Cyanocobalamin [Vitamin B-12] 1,000 mcg PO DAILY 12/18/15 10/09/17 DULoxetine HCL [Cymbalta] 60 mg PO DAILY 12/18/15 10/09/17 Ergocalciferol (Vitamin D2) 50,000 unit PO SUTH 12/18/15 10/09/17 [Drisdol] Petrolatum, White [Aquaphor] 1 applic TOPICAL DAILY PRN 12/18/15 10/09/17 Gemfibrozil [Lopid] 600 mg PO AC-BID 07/03/17 10/09/17 Ranolazine [Ranexa] 500 mg PO BID 07/03/17 10/09/17 Sulfamethox-Tmp 800-160Mg [Bactrim 1 tab PO Q12HR 10/09/17 10/09/17 DS 800-160 mg] Previous Rx's Medication Instructions Recorded Furosemide [Lasix] 40 mg PO BID@0900,1600 #60 tab 12/23/15 Ipratropium-Albuterol Nebulize 3 ml INHALATION RT-QID ampul.neb 12/23/15 [Duoneb 0.5 mg-3 mg/3 ml Soln] Metoprolol Tartrate [Lopressor] 25 mg PO BID #60 tab 12/23/15 Montelukast [Singulair] 10 mg PO HS #30 tab 06/13/16 Sulfamethox-Tmp 800-160Mg [Bactrim 1 tab PO Q12HR 10 Days #20 tab 10/09/17 DS 800-160 mg] Allergies Allergy/AdvReac Type Severity Reaction Status Date / Time pregabalin [From Lyrica] Allergy Dyspnea Verified 10/09/17 14:46 venom-honey bee Allergy Unknown Verified 10/09/17 14:46 [bee venom (honey bee)] atorvastatin AdvReac MUSCLE PAIN Verified 10/09/17 14:46 isosorbide mononitrate AdvReac HEADACHES Verified 10/09/17 14:46 [From Imdur] rosuvastatin calcium AdvReac MUSCLE PAIN Verified 10/09/17 14:46 [From Crestor] tramadol AdvReac SUICIDAL Verified 10/09/17 14:46 THOUGHTS venlafaxine AdvReac SUICIDAL Verified 10/09/17 14:46 THOUGHTS Review of Systems ROS Statement: Those systems with pertinent positive or pertinent negative responses have been documented in the HPI. ROS Other: All systems not noted in ROS Statement are negative. Constitutional: Denies: fever, chills, weakness, night sweats Eyes: Denies: vision change ENT: Denies: congestion Respiratory: Denies: cough, dyspnea, hemoptysis Cardiovascular: Denies: chest pain, palpitations Endocrine: Denies: fatigue Gastrointestinal: Denies: abdominal pain, nausea, vomiting Musculoskeletal: Reports: joint swelling, arthralgia, myalgia Skin: Denies: rash Neurological: Reports: numbness (Chronic), paresthesias (Chronic). Denies: headache, weakness Past Medical History Past Medical History: Asthma, Coronary Artery Disease (CAD), Cancer, Heart Failure, COPD, GERD/Reflux, Hyperlipidemia, Hypertension, Myocardial Infarction (CT), Pneumonia, Prostate Disorder Additional Past Medical History / Comment(s): CT x 2, SAMIR with CPAP, chronic CHF , bilateral lower extremity edema, peripheral neuropathy bilateral legs/feet, prostate cancer with surgery, sinus infections. Last Myocardial Infarction Date:: 2014 History of Any Multi-Drug Resistant Organisms: None Reported Past Surgical History: Heart Catheterization With Stent, Orthopedic Surgery, Prostate Surgery Additional Past Surgical History / Comment(s): RT LEG surgery d/t trauma, cardiac stents x 2, prostatectomy Past Anesthesia/Blood Transfusion Reactions: No Reported Reaction Date of Last Stent Placement:: 02/15/2014 Past Psychological History: No Psychological Hx Reported Smoking Status: Current every day smoker Past Alcohol Use History: Occasional Past Drug Use History: None Reported - Past Family History Mother Family Medical History: COPD Additional Family Medical History / Comment(s): abdominal aneurysm. Currently being set up in hospice. Father Family Medical History: Cancer Additional Family Medical History / Comment(s): : lung ca with brain mets. General Exam - General Exam Comments Initial Comments: Sitting up on side of bed. No acute distress. Conversing normally. Well- appearing. Calm, pleasant, smiling. Well-groomed well-dressed Limitations: no limitations General appearance: alert, in no apparent distress Head exam: Present: atraumatic, normocephalic Eye exam: Present: normal appearance ENT exam: Present: normal exam Neck exam: Present: normal inspection Respiratory exam: Present: normal lung sounds bilaterally. Absent: respiratory distress, wheezes, rales, rhonchi, stridor Cardiovascular Exam: Present: regular rate, normal rhythm, other (Strong dopplerable DP pulse in right foot.) GI/Abdominal exam: Present: soft. Absent: distended, tenderness Extremities exam: Present: other (Walking boot removed, dressings in place with small amount of yellow fluid on them. All compartments soft. Patient has decreased sensation to light touch feet bilaterally, however sensation intact to from pressure bilaterally. Right foot appears mildly red, dry cracked skin throughout. No edema appreciated. Right ankle incision with yellow crusting laterally and anteriorly. Incision intact. No surrounding erythema. Intact range of motion of the right ankle. ) Neurological exam: Present: alert, oriented X3. Absent: motor sensory deficit Psychiatric exam: Present: normal affect, normal mood Skin exam: Present: warm, dry, intact, erythema. Absent: rash, cyanosis, petechiae, pallor Course Vital Signs 10/09/17 10/09/17 12:51 16:08 Temperature 98.2 F Pulse Rate 80 66 Respiratory 18 22 Rate Blood Pressure 115/63 108/66 O2 Sat by Pulse 93 L 94 L Oximetry Medical Decision Making - Medical Decision Making She does not appear to have compartment syndrome at this time. Patient does have small amount of drainage at incision sites may represent mild infection. Patient is not a signs of arterial occlusion. We'll get x-ray to assess for possible osteomyelitis, ultrasound to assess for possible venous blood clot. No systemic signs of infection. Patient's symptoms may be multifactorial including peripheral neuropathy due to uncontrolled glucose levels, as well as peripheral vascular disease. Patient also has had recent surgery with decreased range of motion in the leg, although patient does state he takes walking boot off whenever he is at rest. X-ray shows postsurgical change, diffuse soft tissue edema but no osseous destructive change. One of the screws relates the fixation plate appears to be outside of the plate. Posterior malleolus fracture persists. Ultrasound negative for DVT of the leg. Spoke with patient's orthopedic surgeon Dr.Avinash Dwaine Ryan on the phone, updated with patient condition results. States that the screw on x-ray is supposed to be out of the plate. Discussed yellow crusting at surgical site, he requests Bactrim DS to be given. He states that patient has been noncompliant with his follow-up, states she is supposed to be nonweightbearing but was walking on the leg regularly, states she did not complete full rehab, signed out AMA from rehab. States that this time patient can follow-up at his regularly scheduled appointment on October 17, is to take antibiotics daily in the interim. Patient updated without results and plan. Patient feels comfortable being discharged home. Patient instructed to be nonweightbearing on the right leg. Patient has crutches with him. Patient agrees to take antibiotics as prescribed. Confirm multiple times with patient that he has to go to pharmacy today to fill his rectal prescription without fail, patient informed that failing to do so could result in from pulmonary embolism or other significant morbidity. At this time patient has no shortness breath, chest pain palpitations or other symptoms of pulmonary embolism. Patient agrees to follow-up with his primary care physician one to 2 days for wound recheck, as well as in the interim until he is seen by his orthopedic surgeon. Agrees to return to ER for new or worsening symptoms including increased pain, swelling, redness, drainage, fevers, chills, nausea, vomiting. - Lab Data Result diagrams: 10/09/17 14:49 10/09/17 14:49 Lab Results 10/09/17 10/09/17 Range/Units 14:49 14:49 WBC 5.4 (3.8-10.6) k/uL RBC 4.34 (4.30-5.90) m/uL Hgb 14.2 (13.0-17.5) gm/dL Hct 40.9 (39.0-53.0) % MCV 94.2 (80.0-100.0) fL MCH 32.7 (25.0-35.0) pg MCHC 34.7 (31.0-37.0) g/dL RDW 16.8 H (11.5-15.5) % Plt Count 250 (150-450) k/uL Neutrophils % 52 % Lymphocytes % 34 % Monocytes % 8 % Eosinophils % 2 % Basophils % 1 % Neutrophils # 2.8 (1.3-7.7) k/uL Lymphocytes # 1.9 (1.0-4.8) k/uL Monocytes # 0.4 (0-1.0) k/uL Eosinophils # 0.1 (0-0.7) k/uL Basophils # 0.0 (0-0.2) k/uL Poikilocytosis Slight Anisocytosis Slight ESR 2 (0-15) mm/hr Sodium 140 (137-145) mmol/L Potassium 4.4 (3.5-5.1) mmol/L Chloride 99 (98-107) mmol/L Carbon Dioxide 27 (22-30) mmol/L Anion Gap 14 mmol/L BUN 23 H (9-20) mg/dL Creatinine 1.20 (0.66-1.25) mg/dL Est GFR (CKD-EPI)AfAm 78 (>60 ml/min/1.73 sqM) Est GFR (CKD-EPI)NonAf 68 (>60 ml/min/1.73 sqM) Glucose 108 H (74-99) mg/dL Calcium 10.0 (8.4-10.2) mg/dL C-Reactive Protein <5.0 (<10.0) mg/L Disposition Clinical Impression: Post-op pain Disposition: HOME SELF-CARE Condition: Good Instructions: Acute Wound Care (ED) Additional Instructions: Follow-up with your primary care office one to 2 days for wound recheck. Follow up with her orthopedic surgeon at scheduled appointment. Return to ER if new or worsening symptoms including fevers, chills, nausea, vomiting, erythema, increased pain, drainage from her surgical sites. Prescriptions: Sulfamethox-Tmp 800-160Mg [Bactrim DS 800-160 mg] 1 tab PO Q12HR 10 Days #20 tab Is patient prescribed a controlled substance at d/c from ED?: No Referrals: [facility],Clinic [Primary Care Provider] - 1-2 days
[2017-10-09] MEDS ORDERED: VANCOMYCIN IV PER PHARMACY 1 EACH MISC MISCELLANE PRN (14:42)
[2017-10-09] MEDS ORDERED: SODIUM CHLORIDE 0.9% 1,000 ML IV STA (14:42)
[2017-10-09] MEDS ORDERED: cefTRIAXone IN SWFI 1,000 MG/10 ML SYRINGE IVP STA (14:44)
[2017-10-09] MEDS ORDERED: VANCOMYCIN 2,000 MG in SODIUM CHLORIDE 0.9% 500 ML IVPB ONE (15:00)
--- NOTE | 2017-10-09 15:03 | XR ---
EXAMINATION TYPE: XR ankle limited RT DATE OF EXAM: 10/09/2017 COMPARISON: NONE HISTORY: Pain and swelling TECHNIQUE: 2 views are submitted FINDINGS: There is diffuse soft tissue edema. Ankle mortise preserved. Surgical plate is seen involvi ng the fibula with one the screws which appears dislodged from the plate. Soft tissue ossification or previous fracture fragment noted along the interosseous membrane. Undisplaced fracture of the maintenance repairman ior malleolus persists on the lateral view. Calcaneal spurs noted. No overtly destructive changes. IMPRESSION: 1. Postsurgical change. There is diffuse soft tissue edema but no osseous destructive change. 2. One of the screws related to the fixation plate appears to be dislodged an outside of the plate. C orrelate clinically. 3. Posterior malleolus fracture.
[2017-10-09 15:11] LABS: Anisocytosis Slight; Basophils % (A) 1 %; Eosinophils # (A) 0.1 k/uL (0-0.7); Eosinophils % (A) 2 %; HCT 40.9 % (39.0-53.0); HGB 14.2 gm/dL (13.0-17.5); Lymphocytes # (A) 1.9 k/uL (1.0-4.8); Lymphocytes % (A) 34 %; MCH 32.7 pg (25.0-35.0); MCHC 34.7 g/dL (31.0-37.0); MCV 94.2 fL (80.0-100.0); Mean Platelet Volume 6.8; Monocytes # (A) 0.4 k/uL (0-1.0); Monocytes % (A) 8 %; Neutrophils # (A) 2.8 k/uL (1.3-7.7); Neutrophils % (A) 52 %; Platelet Count 250 k/uL (150-450); Poikilocytosis Slight; RBC 4.34 m/uL (4.30-5.90); RDW 16.8 % (11.5-15.5); WBC 5.4 k/uL (3.8-10.6)
[2017-10-09 15:23] LABS: Anion Gap 14 mmol/L; Blood Urea Nitrogen 23 mg/dL (9-20); C Reactive Protein <5.0 mg/L (<10.0); Carbon Dioxide 27 mmol/L (22-30); Chloride 99 mmol/L (98-107); Glucose 108 mg/dL (74-99); Potassium 4.4 mmol/L (3.5-5.1); Sodium 140 mmol/L (137-145)
--- NOTE | 2017-10-09 15:23 | US ---
EXAMINATION TYPE: US venous doppler duplex LE RT DATE OF EXAM: 10/09/2017 3:18 PM COMPARISON: NONE CLINICAL HISTORY: Pain. rt foot pain and swelling SIDE PERFORMED: Right TECHNIQUE: The lower extremity deep venous system is examined utilizing real time linear array sonog hui with graded compression, doppler sonography and color-flow sonography. VESSELS IMAGED: External Iliac Vein (EIV) Common Femoral Vein Deep Femoral Vein Greater Saphenous Vein * Femoral Vein Popliteal Vein Small Saphenous Vein * Proximal Calf Veins (* superficial vessels) Right Leg: Negative for DVT IMPRESSION: 1. No diagnostic evidence of DVT as visualized.
[2017-10-09 15:51] LABS: Erythrocyte Sedimentation Rate 2 mm/hr (0-15)
[2017-10-09 19:19] VITALS: BP 122/72; PULSE 78
[2017-10-09 19:53] VITALS: RESP 16; TEMP 97.3
[2017-10-10] MEDS ORDERED: VANCOMYCIN 1,750 MG in SODIUM CHLORIDE 0.9% 250 ML IVPB SCH ×2
[2017-10-10] MEDS ORDERED: cefTRIAXone IN SWFI 1,000 MG/10 ML SYRINGE IVP SCH (09:00)
== END 2017-10-09 19:51 | disposition home or self-care (01) ==
LOC: EC 12:40
DX: G89.18 Other acute postprocedural pain (principal); M79.604 Pain in right leg; S82.891D Other fracture of right lower leg, subsequent encounter for closed fracture with routine healing; R60.0 Localized edema; R73.09 Other abnormal glucose; G62.9 Polyneuropathy, unspecified; E78.5 Hyperlipidemia, unspecified; I11.0 Hypertensive heart disease with heart failure; I50.9 Heart failure, unspecified; I25.10 Atherosclerotic heart disease of native coronary artery without angina pectoris; J44.9 Chronic obstructive pulmonary disease, unspecified; G47.33 Obstructive sleep apnea (adult) (pediatric); K21.9 Gastro-esophageal reflux disease without esophagitis; I25.2 Old myocardial infarction; F17.200 Nicotine dependence, unspecified, uncomplicated; Z79.02 Long term (current) use of antithrombotics/antiplatelets; Z79.51 Long term (current) use of inhaled steroids; Z79.82 Long term (current) use of aspirin; Z79.899 Other long term (current) drug therapy; Z88.5 Allergy status to narcotic agent; Z88.8 Allergy status to other drugs, medicaments and biological substances; Z91.030 Bee allergy status; Z85.46 Personal history of malignant neoplasm of prostate; Z90.79 Acquired absence of other genital organ(s); Z86.19 Personal history of other infectious and parasitic diseases; Z98.890 Other specified postprocedural states; Z95.5 Presence of coronary angioplasty implant and graft; Z99.89 Dependence on other enabling machines and devices; X58.XXXD Exposure to other specified factors, subsequent encounter
CPT/HCPCS: 99284; 96365; 96366 ×3; 96375; 36415; 80048; 85652; 85025; 86140; 73600; 93971; J3370; J0696

== ENCOUNTER → 2018-03-16 | Outpatient (CLI) | payer MEDICARE, OTHER ==
--- NOTE | 2018-03-16 16:41 | XR ---
EXAMINATION: XR chest 2V DATE AND TIME: 03/16/2018 4:19 PM CLINICAL INDICATION: [id number] Cough,CRF TECHNIQUE: PA and lateral COMPARISON: 08/20/2017 FINDINGS: The lungs are nearly entirely clear. The left lung base is subtle added opacity which could correlate with a clinical diagnosis of early developing bronchopneumonia. Would suggest six-week follow-up PA and lateral deep end-inspiration chest radiographs to prove resolution. The pleural spaces are negative. The cardiac silhouette is not enlarged. The remainder of the mediastinal silhouette is unremarkable. The skeletal structures and soft tissues are negative for acute findings. IMPRESSION: Subtle radiographic finding noted, suggesting early left lung base bronchopneumonia.
== END | disposition home or self-care (01) ==
LOC: RADXRYALE 16:09
PROVIDERS: ATTEND Family Medicine
DX: R05 Cough (principal); J96.11 Chronic respiratory failure with hypoxia
CPT/HCPCS: 71046

== ENCOUNTER → 2018-04-16 | Outpatient (CLI) | payer MEDICARE, OTHER ==
--- NOTE | 2018-04-16 15:28 | XR ---
EXAMINATION TYPE: XR chest 2V DATE OF EXAM: 04/16/2018 COMPARISON: 03/16/2018 HISTORY: Shortness of breath TECHNIQUE: Frontal and lateral views of the chest are obtained. FINDINGS: Scattered senescent parenchymal changes noted. Hyperinflation compatible with COPD. No evidence for infiltrate. No evidence for atelectasis. Heart size is stable. Mediastinal structures are stable and grossly unremarkable. No evidence for hilar prominence. Degenerative changes dorsal spine. IMPRESSION: 1. No evidence for acute pulmonary disease.
--- NOTE | 2018-04-16 16:03 | XR ---
EXAM TYPE: LUMBAR SPINE X RAY SERIES COMPARISON: NONE HISTORY: Pain TECHNIQUE: 4 views are submitted. FINDINGS: Alignment is anatomic. The pedicles are intact. The transverse processes are intact. There is no s pondylolisthesis. There is degenerative disc disease at all levels with most marked findings at leve ls L3-S1. Multilevel facet arthropathy noted. IMPRESSION: 1. Multilevel degenerative disc disease and facet arthropathy..
== END | disposition home or self-care (01) ==
LOC: RADXRYALE 13:59
PROVIDERS: ATTEND Physician Assistant Medical
DX: M51.36 Other intervertebral disc degeneration, lumbar region (principal); M46.96 Unspecified inflammatory spondylopathy, lumbar region; R05 Cough; R06.02 Shortness of breath
CPT/HCPCS: 71046; 72110

== ENCOUNTER 2018-04-22 10:05 | Day surgery (SDC) | payer MEDICARE, OTHER ==
[2018-04-17 08:58] VITALS: BMI 37.9
--- NOTE | 2018-04-22 09:36 | P.GSHP ---
History of Present Illness H&P Date: 04/22/18 Chief Complaint: Ulceration lateral right leg post surgical dehiscence The patient had an ORIF of the right ankle. He has had a surgical dehiscence and an ulceration in this area. Please refer to the wound care history and physical dated 03/24/2018 for the rest of his history. - Review of Systems Comment: Refer to his history and physical dated 03/24/2018 Past Medical History Past Medical History: Asthma, Coronary Artery Disease (CAD), Cancer, Chest Pain / Angina, Heart Failure, COPD, GERD/Reflux, Hyperlipidemia, Hypertension, Myocardial Infarction ([place]), Pneumonia, Prostate Disorder, Pulmonary Embolus (PE) , Sleep Apnea/CPAP/BIPAP, Vascular Disorder Additional Past Medical History / Comment(s): [place] x3, bilateral lower extremity edema, peripheral neuropathy bilateral legs/feet, prostate cancer, migraines, gets a seizure from certain type of coughing-loss of control of extremities, no cpap used currently, hernia in "lower stomach", dry skin, wound rt ankle, Last Myocardial Infarction Date:: unknown History of Any Multi-Drug Resistant Organisms: VRE Date of last positivie culture/infection: 09/2017 MDRO Source:: right leg Past Surgical History: Heart Catheterization With Stent, Orthopedic Surgery, Prostate Surgery Additional Past Surgical History / Comment(s): RT LEG surgery d/t trauma, cardiac stents x 2 Past Anesthesia/Blood Transfusion Reactions: Motion Sickness Additional Past Anesthesia/Blood Transfusion Reaction / Comment(s): "had a seizure from coughing and ended up with a trach and on a vent". Pt denies diff intubation. anesthesia record from [facility] on chart. Date of Last Stent Placement:: 02/15/2014 Past Psychological History: No Psychological Hx Reported Additional Psychological History / Comment(s): . Smoking Status: Current every day smoker Past Alcohol Use History: Rare Additional Past Alcohol Use History / Comment(s): Pt started smoking age 11, 1/ 2 ppd smoker. Past Drug Use History: None Reported - Past Family History Mother Family Medical History: COPD Additional Family Medical History / Comment(s): abdominal aneurysm. Currently being set up in hospice. Father Family Medical History: Cancer Additional Family Medical History / Comment(s): : lung ca with brain mets. Medications and Allergies Home Medications Medication Instructions Recorded Confirmed Type Albuterol Inhaler [Ventolin Hfa 2 puff INHALATION Q4HR PRN 07/04/14 04/17/18 History Inhaler] Aspirin EC [Ecotrin Low Dose] 81 mg PO DAILY 07/04/14 04/17/18 History Atorvastatin [Lipitor] 80 mg PO HS 07/04/14 04/17/18 History Clopidogrel [Plavix] 75 mg PO DAILY 07/04/14 04/17/18 History Gabapentin [Neurontin] 300 mg PO QID 07/04/14 04/17/18 History Budesonide/Formoterol Fumarate 2 puff INHALATION BID 02/10/15 04/17/18 History [Symbicort 160-4.5 Mcg Inhaler] Nitroglycerin Sl Tabs [Nitrostat] 0.4 mg SUBLINGUAL Q5M PRN 02/10/15 04/17/18 History Omeprazole [PriLOSEC] 20 mg PO DAILY 02/10/15 04/17/18 History Cyanocobalamin [Vitamin B-12] 1,000 mcg PO DAILY 12/18/15 04/17/18 History DULoxetine HCL [Cymbalta] 60 mg PO DAILY 12/18/15 04/17/18 History Ergocalciferol (Vitamin D2) 50,000 unit PO SUTH 12/18/15 04/17/18 History [Drisdol] Petrolatum, White [Aquaphor] 1 applic TOPICAL DAILY PRN 12/18/15 04/17/18 History Furosemide [Lasix] 40 mg PO BID@0900,1600 #60 tab 12/23/15 04/17/18 Rx Metoprolol Tartrate [Lopressor] 25 mg PO BID #60 tab 12/23/15 04/17/18 Rx Montelukast [Singulair] 10 mg PO HS #30 tab 06/13/16 04/17/18 Rx Gemfibrozil [Lopid] 600 mg PO AC-BID 07/03/17 04/17/18 History Ranolazine [Ranexa] 500 mg PO BID 07/03/17 04/17/18 History Cyclobenzaprine [Flexeril] 10 mg PO HS 04/17/18 04/17/18 History Ipratropium-Albuterol Nebulize 3 ml INHALATION QID 04/17/18 04/17/18 History [Duoneb 0.5 mg-3 mg/3 ml Soln] Rivaroxaban [Xarelto] 20 mg PO HS 04/17/18 04/17/18 History Allergies Allergy/AdvReac Type Severity Reaction Status Date / Time latex Allergy Itching/red Verified 04/17/18 08:58 skin pregabalin [From Lyrica] Allergy Dyspnea Verified 04/17/18 08:34 venom-honey bee Allergy Unknown Verified 04/17/18 08:34 [bee venom (honey bee)] atorvastatin AdvReac MUSCLE PAIN Verified 04/17/18 08:34 isosorbide mononitrate AdvReac HEADACHES Verified 04/17/18 08:34 [From Imdur] rosuvastatin calcium AdvReac MUSCLE PAIN Verified 04/17/18 08:34 [From Crestor] tramadol AdvReac SUICIDAL Verified 04/17/18 08:34 THOUGHTS venlafaxine AdvReac SUICIDAL Verified 04/17/18 08:34 THOUGHTS Surgical - Exam Osteopathic Statement: *. No significant issues noted on an osteopathic structural exam other than those noted in the History and Physical/Consult. - General well developed, well nourished, no distress - Eyes normal ocular movement, no icteric - ENT no hearing loss, no congestion - Neck no masses, trachea midline - Respiratory normal respiratory effort, clear to auscultation - Abdomen Abdomen: soft, non tender, no guarding, no rigid, no rebound - Integumentary 10 x 4.7 cm ulcer right lower leg at the ankle no rash, no abnormal pigmentation - Neurologic no disoriented, no combative - Psychiatric oriented to time, oriented to person, oriented to place, speech is normal, memory intact Assessment and Plan (1) Dehiscence of external surgical wound Status: Acute Code(s): T81.31XA - DISRUPTION OF EXTERNAL OPERATION (SURGICAL) WOUND, NEC, INIT SNOMED Code(s): [id number] Plan: Plan is for an aggressive surgical debridement. Patient appears to understand the risks and options. He wishes to proceed.
[~2018-04-22 10:05] MED LIST: DEXAMETHASONE SOD PHOSPHATE 10 MG/ML 1 ML VIAL IV ONE; HYDROmorphone 0.5 MG/0.5 ML SYRINGE IVP PRN; LACTATED RINGERS 1,000 ML IV SCH; ONDANSETRON 4 MG/2 ML VIAL IVP ONE; Pre Op ABX Message 1 EACH MISC MISCELLANE ONE
[2018-04-22 10:36] VITALS: TEMP 97.4
[2018-04-22 10:45] LABS: Glucose,Whole Blood 114 mg/dL (75-99)
[2018-04-22] MEDS ORDERED: fentaNYL (PF) 50 MCG/ML 2 ML AMP IV ONE (10:55)
[2018-04-22] MEDS ORDERED: MIDAZOLAM 2 MG/2 ML VIAL IV ONE (10:55)
[2018-04-22] MEDS ORDERED: MIDAZOLAM 2 MG/2 ML VIAL ONE (11:26)
[2018-04-22] MEDS ORDERED: fentaNYL (PF) 50 MCG/ML 2 ML AMP ONE (11:26)
[2018-04-22] MEDS ORDERED: KETAMINE 10 MG/ML 20 ML VIAL ONE (11:26)
--- NOTE | 2018-04-22 11:54 | PCM.SQDEBR ---
Subcutaneous Debridement - Subcutaneous Debridement Subcutaneous Debridement: Date of service: 04/22/2018 Surgeon: Joe Pre-and postop diagnosis: Chronic ulcer lateral right ankle secondary to surgical dehiscence Type of debridement: Excisional surgical subcutaneous Chief complaint: ulcer of lateral right ankle Anesthesia: IV sedation per MAC Signs of infection: Redness Other material in the wound that is expected to inhibit healing or promote adjacent tissue breakdown: Nonviable scar and soft tissue Degree of epithelialization: % Method and instrument: Surgical debridement with scalpel Character of the wound after debridement: Bloody subcutaneous bed Description of necrotic material present: Nonviable soft tissue and fibrous tissue and scar Description of tissue removed: Same Pre-debridement measurement: 10 x 4.5 cm and 0.5 cm in depth Postoperative debridement measurement: 10.5 x 4.7 cm and 0.7 cm in depth Specimens sent for culture Control of bleeding:Bleeding was easily controlled with saline moistened gauze and light pressure Post debridement dressing: Absorptive silver and Zhou wrap Patient tolerated procedure well
--- NOTE | 2018-04-22 11:56 | P.ONQ ---
Anesthesiology Proc Note - PNB - Peripheral Nerve Block Performed Right Popliteal Time Out Performed: Yes Procedure Start Time: 10:54 Procedure Stop Time: 10:59 Indication: Acute Post-Operative Pain, Analgesia, Requested by physician Sedation Type: Awake Preparation: Sterile Prep Position: Supine Catheter: None Needle Types: On-Q Needle Size: 100mm (4") Needle Gauge: 21 Technique: Ultrasound Injectate: Other (see comment) (0.5% bupivacaine with 1:200k epinephrine 20cc) Adjunct: Epinephrine (see comment for dilution ratio) (1:200k) Blood Aspirated: No Pain Paresthesia on Injection Noted: No Resistance on Injection: Normal Events: Uneventful and Well Tolerated
[2018-04-22] MEDS ORDERED: IV FLUID CONTINUATION 1,000 ML IV ONE (12:03)
[2018-04-22 12:05] VITALS: RESP 18
[2018-04-22 12:21] VITALS: BP 122/84; PULSE 82
== END 2018-04-22 12:44 | disposition home or self-care (01) ==
LOC: OR 10:05
PROVIDERS: ATTEND Thoracic Surgery (Cardiothoracic Vascular Surgery)
DX: T81.31XA Disruption of external operation (surgical) wound, not elsewhere classified, initial encounter (principal); I25.119 Atherosclerotic heart disease of native coronary artery with unspecified angina pectoris; I11.0 Hypertensive heart disease with heart failure; I50.9 Heart failure, unspecified; J44.9 Chronic obstructive pulmonary disease, unspecified; K21.9 Gastro-esophageal reflux disease without esophagitis; E78.5 Hyperlipidemia, unspecified; R60.0 Localized edema; G43.909 Migraine, unspecified, not intractable, without status migrainosus; R56.9 Unspecified convulsions; G47.33 Obstructive sleep apnea (adult) (pediatric); E11.42 Type 2 diabetes mellitus with diabetic polyneuropathy; I25.2 Old myocardial infarction; F17.210 Nicotine dependence, cigarettes, uncomplicated; Z79.02 Long term (current) use of antithrombotics/antiplatelets; Z79.51 Long term (current) use of inhaled steroids; Z79.899 Other long term (current) drug therapy; Z79.82 Long term (current) use of aspirin; Z79.01 Long term (current) use of anticoagulants; Z79.4 Long term (current) use of insulin; Z99.89 Dependence on other enabling machines and devices; Z95.5 Presence of coronary angioplasty implant and graft; Z86.711 Personal history of pulmonary embolism; Z85.46 Personal history of malignant neoplasm of prostate; Z88.8 Allergy status to other drugs, medicaments and biological substances; Z91.040 Latex allergy status
CPT/HCPCS: 87070; 87205; 87075; 87077; 87186; 64450; 11042; 11045 ×2; J2250; J3010

== ENCOUNTER → 2018-05-14 | Outpatient (CLI) | payer MEDICARE, OTHER | END | disposition home or self-care (01) | LOC: RADUSWWP 13:14 | PROVIDERS: ATTEND Thoracic Surgery (Cardiothoracic Vascular Surgery) | DX: M79.604 Pain in right leg (principal); M79.605 Pain in left leg | CPT/HCPCS: 93923 ==

== ENCOUNTER 2018-05-19 12:30 | Emergency (ER) | payer MEDICARE, OTHER ==
--- NOTE | 2018-05-19 13:34 | ED ---
General Adult HPI - General Chief complaint: Extremity Injury, Upper Stated complaint: fall/poss broken arm Time Seen by Provider: 05/19/18 13:06 Source: patient, RN notes reviewed Mode of arrival: ambulatory Limitations: no limitations - History of Present Illness Initial comments: Patient's a 57-year-old male presented to the emergency room today with a chief complaint of an injury to the back of the right arm. Patient does admit that he was standing waiting for coffee when he slipped falling hitting back of the right arm. He does not that he sounded blood thinner and states that there has had increased pain to the back of the right elbow and upper arm. Patient denies any head injury or loss conscious. He denies any other complaints or symptoms. Patient denies any recent fever, chills, shortness of breath, chest pain, back pain, abdominal pain, nausea or vomiting, numbness or tingling, dysuria or hematuria, constipation or diarrhea, headaches or visual changes, or any other complaints. - Related Data Home Medications Medication Instructions Recorded Confirmed Albuterol Inhaler [Ventolin Hfa 2 puff INHALATION Q4HR PRN 07/04/14 05/12/18 Inhaler] Aspirin EC [Ecotrin Low Dose] 81 mg PO DAILY 07/04/14 05/12/18 Atorvastatin [Lipitor] 80 mg PO HS 07/04/14 05/12/18 Clopidogrel [Plavix] 75 mg PO DAILY 07/04/14 05/12/18 Gabapentin [Neurontin] 300 mg PO QID 07/04/14 05/12/18 Budesonide/Formoterol Fumarate 2 puff INHALATION BID 02/10/15 05/12/18 [Symbicort 160-4.5 Mcg Inhaler] Nitroglycerin Sl Tabs [Nitrostat] 0.4 mg SUBLINGUAL Q5M PRN 02/10/15 05/12/18 Omeprazole [PriLOSEC] 20 mg PO DAILY 02/10/15 05/12/18 Cyanocobalamin [Vitamin B-12] 1,000 mcg PO DAILY 12/18/15 05/12/18 DULoxetine HCL [Cymbalta] 60 mg PO DAILY 12/18/15 05/12/18 Ergocalciferol (Vitamin D2) 50,000 unit PO SUTH 12/18/15 05/12/18 [Drisdol] Petrolatum, White [Aquaphor] 1 applic TOPICAL DAILY PRN 12/18/15 05/12/18 Gemfibrozil [Lopid] 600 mg PO AC-BID 07/03/17 05/12/18 Ranolazine [Ranexa] 500 mg PO BID 07/03/17 05/12/18 Cyclobenzaprine [Flexeril] 10 mg PO HS 04/17/18 05/12/18 Ipratropium-Albuterol Nebulize 3 ml INHALATION QID 04/17/18 05/12/18 [Duoneb 0.5 mg-3 mg/3 ml Soln] Rivaroxaban [Xarelto] 20 mg PO HS 04/17/18 05/12/18 Amoxic-Pot Clav 875-125Mg 875 mg PO BID 04/29/18 05/12/18 [Augmentin 875-125] Previous Rx's Medication Instructions Recorded Furosemide [Lasix] 40 mg PO BID@0900,1600 #60 tab 12/23/15 Metoprolol Tartrate [Lopressor] 25 mg PO BID #60 tab 12/23/15 Montelukast [Singulair] 10 mg PO HS #30 tab 06/13/16 Allergies Allergy/AdvReac Type Severity Reaction Status Date / Time latex Allergy Itching/red Verified 05/19/18 12:47 skin pregabalin [From Lyrica] Allergy Dyspnea Verified 05/19/18 12:47 venom-honey bee Allergy Unknown Verified 05/19/18 12:47 [bee venom (honey bee)] atorvastatin AdvReac MUSCLE PAIN Verified 05/19/18 12:47 isosorbide mononitrate AdvReac HEADACHES Verified 05/19/18 12:47 [From Imdur] rosuvastatin calcium AdvReac MUSCLE PAIN Verified 05/19/18 12:47 [From Crestor] tramadol AdvReac SUICIDAL Verified 05/19/18 12:47 THOUGHTS venlafaxine AdvReac SUICIDAL Verified 05/19/18 12:47 THOUGHTS Review of Systems ROS Statement: Those systems with pertinent positive or pertinent negative responses have been documented in the HPI. ROS Other: All systems not noted in ROS Statement are negative. Past Medical History Past Medical History: Asthma, Coronary Artery Disease (CAD), Cancer, Heart Failure, COPD, GERD/Reflux, Hyperlipidemia, Hypertension, Myocardial Infarction ([place]), Pneumonia, Prostate Disorder Additional Past Medical History / Comment(s): [place] x 2, SAMIR with CPAP, chronic CHF , bilateral lower extremity edema, peripheral neuropathy bilateral legs/feet, prostate cancer with surgery, sinus infections. Last Myocardial Infarction Date:: 2014 History of Any Multi-Drug Resistant Organisms: VRE Date of last positivie culture/infection: 09/2017 MDRO Source:: right leg Past Surgical History: Heart Catheterization With Stent, Orthopedic Surgery, Prostate Surgery Additional Past Surgical History / Comment(s): RT LEG surgery d/t trauma, cardiac stents x 2, prostatectomy Past Anesthesia/Blood Transfusion Reactions: No Reported Reaction Date of Last Stent Placement:: 02/15/2014 Past Psychological History: No Psychological Hx Reported Smoking Status: Current every day smoker Past Alcohol Use History: Occasional Past Drug Use History: Marijuana - Past Family History Mother Family Medical History: COPD Additional Family Medical History / Comment(s): abdominal aneurysm. Currently being set up in hospice. Father Family Medical History: Cancer Additional Family Medical History / Comment(s): : lung ca with brain mets. General Exam - General Exam Comments Initial Comments: General: The patient is awake and alert, in no distress, and does not appear acutely ill. Eye: Pupils are equal, round and reactive to light, extra-ocular movements are intact. No nystagmus. There is normal conjunctiva bilaterally. No signs of icterus. Ears, nose, mouth and throat: There are moist mucous membranes and no oral lesions. Neck: The neck is supple, there is no tenderness or JVD. Cardiovascular: There is a regular rate and rhythm. Respiratory: Lungs are clear to auscultation, respirations are non-labored, breath sounds are equal. No wheezes, stridor, rales, or rhonchi. Musculoskeletal: Normal ROM. Patient tender to palpation over the posterior aspect of the right elbow. Strength 5/5. Sensation intact. Pulses equal bilaterally 2+. Neurological: A&O x 3. CN II-XII intact, There are no obvious motor or sensory deficits. Coordination appears grossly intact. Speech is normal. Skin: Does have a contusion to the posterior aspect of the right elbow and lower portion of the right humerus. Psychiatric: Cooperative, appropriate mood & affect, normal judgment. Limitations: no limitations Course Vital Signs 05/19/18 05/19/18 12:43 14:21 Temperature 98.3 F 98.1 F Pulse Rate 101 H 93 Respiratory 18 20 Rate Blood Pressure 158/79 167/84 O2 Sat by Pulse 98 95 Oximetry Medical Decision Making - Medical Decision Making Patient's x-ray of the right humerus and right elbow were negative for any acute fracture dislocation. Patient did have a contusion. Patient did show good range of motion. Pulses were equal bilaterally. Patient advised to ice the area. Patient is on blood thinner and was recommended to do a head CT as he states he fell slipping backwards and believes that he did hit his head. He states he was no loss consciousness. Patient stating that he could not wait for results as he needs to be similar to pick someone up. Patient did leave prior to CAT scan results. CT was performed which was negative for any acute abnormality. Nursing staff has called to inform the patient of the results. Is advised follow-up family doctor returning to the emergency room for any concerns. Disposition Clinical Impression: Contusion of arm, right, Fall Disposition: HOME SELF-CARE Condition: Good Is patient prescribed a controlled substance at d/c from ED?: No Referrals: Arnold Mathur DO [Primary Care Provider] - 1-2 days Time of Disposition: 15:44
--- NOTE | 2018-05-19 13:56 | XR ---
EXAMINATION TYPE: XR humerus RT DATE OF EXAM: 05/19/2018 CLINICAL HISTORY: Right upper extremity pain after fall TECHNIQUE: Two views of the right humerus are obtained. COMPARISON: None. FINDINGS: There is no acute fracture or dislocation seen in the right humerus. The right shoulder a nd elbow joints appear intact. The distal overlying soft tissues demonstrate dorsal medial subcutane ous edema. No radiopaque foreign body is seen. Incidentally noted moderate acromioclavicular arthropa thy is seen. IMPRESSION: Focal soft tissue swelling over the distal dorsal medial right upper extremity without ac simin fracture or dislocation of the right humerus.
--- NOTE | 2018-05-19 14:00 | XR ---
EXAMINATION TYPE: XR elbow complete RT DATE OF EXAM: 05/19/2018 CLINICAL HISTORY: Right elbow pain after fall. TECHNIQUE: Frontal, lateral and oblique images of the right elbow are obtained. COMPARISON: 2 views of the right humerus of the same date FINDINGS: There is redemonstration of focal soft tissue swelling over the distal dorsal medial right upper extremity There is no acute fracture/dislocation evident in the right elbow. No abnormal fat pad signs are seen. No radiopaque foreign body is seen. IMPRESSION: Dorsal medial distal right upper extremity subcutaneous soft tissue swelling with no acut e fracture or dislocation in the right elbow.
[2018-05-19 14:21] VITALS: BP 167/84; PULSE 93; RESP 20; TEMP 98.1
--- NOTE | 2018-05-19 15:37 | CT ---
EXAMINATION TYPE: CT brain wo con DATE OF EXAM: 05/19/2018 COMPARISON: None HISTORY: 57-year-old male fell today/hit his head TECHNIQUE: Examination was done in axial plane without intravenous contrast. Coronal and sagittal r econstructions performed. CT DLP: 1105.4 mGycm Automated exposure control for dose reduction was used. FINDINGS: There is no evidence of acute intracranial hemorrhage, acute ischemic changes, mass, mass-effect, or extra-axial fluid collection. There is no effacement of cerebral sulci or basal subarachnoid cister ns. There is no hydrocephalus. There is no midline shift. Posada-white matter distinction is preserv ed. Moderate mucosal thickening inferior right maxillary sinus. Mastoid air cells are well pneumatized. O rbits and globes are intact. IMPRESSION: No acute intracranial abnormality seen.
== END 2018-05-19 15:20 | disposition home or self-care (01) ==
LOC: EC 12:30
DX: S40.021A Contusion of right upper arm, initial encounter (principal); I25.10 Atherosclerotic heart disease of native coronary artery without angina pectoris; J44.9 Chronic obstructive pulmonary disease, unspecified; I11.0 Hypertensive heart disease with heart failure; I50.9 Heart failure, unspecified; I25.2 Old myocardial infarction; G62.9 Polyneuropathy, unspecified; G47.33 Obstructive sleep apnea (adult) (pediatric); K21.9 Gastro-esophageal reflux disease without esophagitis; E78.5 Hyperlipidemia, unspecified; F17.200 Nicotine dependence, unspecified, uncomplicated; Z79.01 Long term (current) use of anticoagulants; Z79.02 Long term (current) use of antithrombotics/antiplatelets; Z79.82 Long term (current) use of aspirin; Z79.899 Other long term (current) drug therapy; Z91.040 Latex allergy status; Z88.8 Allergy status to other drugs, medicaments and biological substances; Z91.030 Bee allergy status; Z88.5 Allergy status to narcotic agent; Z95.5 Presence of coronary angioplasty implant and graft; Z85.46 Personal history of malignant neoplasm of prostate; W01.198A Fall on same level from slipping, tripping and stumbling with subsequent striking against other object, initial encounter; Y92.009 Unspecified place in unspecified non-institutional (private) residence as the place of occurrence of the external cause
CPT/HCPCS: 70450; 99284

== ENCOUNTER 2018-06-18 11:43 | Emergency (ER) | payer MEDICARE, OTHER ==
[2018-06-18 11:51] VITALS: BP 136/84; PULSE 90; RESP 18; TEMP 97.5
[2018-06-18] MEDS ORDERED: MORPHINE SULFATE 4 MG/ML SYRINGE IM STA ×2 (12:04→13:18)
--- NOTE | 2018-06-18 12:09 | ED ---
General Adult HPI - General Chief complaint: Extremity Injury, Lower Stated complaint: R knee injury Time Seen by Provider: 06/18/18 12:01 Source: patient, RN notes reviewed, old records reviewed Mode of arrival: ambulatory Limitations: no limitations - History of Present Illness Initial comments: 57-year-old male presents with pain and swelling in the right knee. Patient states he fell yesterday approximately 7 PM. His had worsening pain and swelling since the fall. States he fell directly onto his anterior knee. Denies any head injury. No other extremity injury noted. No back pain. Patient has worsening pain with ambulation. - Related Data Home Medications Medication Instructions Recorded Confirmed Albuterol Inhaler [Ventolin Hfa 2 puff INHALATION RT-Q4H PRN 07/04/14 06/18/18 Inhaler] Aspirin EC [Ecotrin Low Dose] 81 mg PO DAILY 07/04/14 06/18/18 Atorvastatin [Lipitor] 80 mg PO HS 07/04/14 06/18/18 Gabapentin [Neurontin] 300 mg PO QID 07/04/14 06/18/18 Budesonide/Formoterol Fumarate 2 puff INHALATION RT-BID 02/10/15 06/18/18 [Symbicort 160-4.5 Mcg Inhaler] Nitroglycerin Sl Tabs [Nitrostat] 0.4 mg SUBLINGUAL Q5M PRN 02/10/15 06/18/18 Omeprazole [PriLOSEC] 20 mg PO DAILY 02/10/15 06/18/18 Cyanocobalamin [Vitamin B-12] 1,000 mcg PO DAILY 12/18/15 06/18/18 DULoxetine HCL [Cymbalta] 60 mg PO DAILY 12/18/15 06/18/18 Ergocalciferol (Vitamin D2) 50,000 unit PO SUTH 12/18/15 06/18/18 [Drisdol] Petrolatum, White [Aquaphor] 1 applic TOPICAL DAILY PRN 12/18/15 06/18/18 Gemfibrozil [Lopid] 600 mg PO AC-BID 07/03/17 06/18/18 Ranolazine [Ranexa] 500 mg PO BID 07/03/17 06/18/18 Cyclobenzaprine [Flexeril] 10 mg PO HS 04/17/18 06/18/18 Ipratropium-Albuterol Nebulize 3 ml INHALATION QID 04/17/18 06/18/18 [Duoneb 0.5 mg-3 mg/3 ml Soln] Rivaroxaban [Xarelto] 20 mg PO HS 04/17/18 06/18/18 INSULIN LISPRO (humaLOG) [humaLOG] 20 units SQ DAILY 06/09/18 06/18/18 Insulin Glargine [Lantus] 70 unit SQ DAILY 06/09/18 06/18/18 Amoxicillin/Potassium Clav 1 tab PO Q12HR 06/16/18 06/18/18 [Augmentin 875-125 Tablet] Furosemide [Lasix] 80 mg PO BID@0900,1600 06/18/18 06/18/18 Previous Rx's Medication Instructions Recorded Metoprolol Tartrate [Lopressor] 25 mg PO BID #60 tab 12/23/15 Montelukast [Singulair] 10 mg PO HS #30 tab 06/13/16 HYDROcodone/APAP 5-325MG [Sherman 1 tab PO Q6HR PRN #12 tab 06/18/18 5-325] Ibuprofen [Motrin] 600 mg PO Q8HR PRN #24 tab 06/18/18 Allergies Allergy/AdvReac Type Severity Reaction Status Date / Time latex Allergy Itching/red Verified 06/18/18 12:09 skin pregabalin [From Lyrica] Allergy Dyspnea Verified 06/18/18 12:09 venom-honey bee Allergy Unknown Verified 06/18/18 12:09 [bee venom (honey bee)] atorvastatin AdvReac MUSCLE PAIN Verified 06/18/18 12:09 isosorbide mononitrate AdvReac HEADACHES Verified 06/18/18 12:09 [From Imdur] rosuvastatin calcium AdvReac MUSCLE PAIN Verified 06/18/18 12:09 [From Crestor] tramadol AdvReac SUICIDAL Verified 06/18/18 12:09 THOUGHTS venlafaxine AdvReac SUICIDAL Verified 06/18/18 12:09 THOUGHTS Review of Systems ROS Statement: Those systems with pertinent positive or pertinent negative responses have been documented in the HPI. ROS Other: All systems not noted in ROS Statement are negative. Past Medical History Past Medical History: Asthma, Coronary Artery Disease (CAD), Cancer, Heart Failure, COPD, GERD/Reflux, Hyperlipidemia, Hypertension, Myocardial Infarction ([place]), Pneumonia, Prostate Disorder Additional Past Medical History / Comment(s): [place] x 2, SAMIR with CPAP, chronic CHF , bilateral lower extremity edema, peripheral neuropathy bilateral legs/feet, prostate cancer with surgery, sinus infections. Last Myocardial Infarction Date:: 2014 History of Any Multi-Drug Resistant Organisms: VRE Date of last positivie culture/infection: 09/2017 MDRO Source:: right leg Past Surgical History: Heart Catheterization With Stent, Orthopedic Surgery, Prostate Surgery Additional Past Surgical History / Comment(s): RT LEG surgery d/t trauma, cardiac stents x 2, prostatectomy Past Anesthesia/Blood Transfusion Reactions: No Reported Reaction Date of Last Stent Placement:: 02/15/2014 Past Psychological History: No Psychological Hx Reported Smoking Status: Current every day smoker Past Alcohol Use History: Occasional Past Drug Use History: Marijuana - Past Family History Mother Family Medical History: COPD Additional Family Medical History / Comment(s): abdominal aneurysm. Currently being set up in hospice. Father Family Medical History: Cancer Additional Family Medical History / Comment(s): : lung ca with brain mets. General Exam Limitations: no limitations General appearance: alert, in no apparent distress Head exam: Present: atraumatic, normocephalic Eye exam: Present: normal appearance, PERRL Neck exam: Present: normal inspection. Absent: tenderness, meningismus Respiratory exam: Present: normal lung sounds bilaterally. Absent: respiratory distress, wheezes Cardiovascular Exam: Present: regular rate, normal rhythm GI/Abdominal exam: Present: soft. Absent: distended, tenderness Extremities exam: Present: other (Right knee: Decreased range of motion secondary to pain, swelling and effusion, point tenderness over the patella.) Back exam: Present: normal inspection Neurological exam: Present: alert, oriented X3. Absent: motor sensory deficit Psychiatric exam: Present: normal affect, normal mood Skin exam: Present: warm, dry, intact. Absent: cyanosis, diaphoretic Course Vital Signs 06/18/18 11:48 Temperature 97.5 F L Pulse Rate 90 Respiratory 18 Rate Blood Pressure 136/84 O2 Sat by Pulse 95 Oximetry Medical Decision Making - Medical Decision Making 57-year-old male with knee pain status post fall. X-ray obtained, shows effusion, no acute bony abnormality. There is concern based on the physical exam for occult injury, CT is obtained, negative for fracture dislocation, there is effusion as well as anterior hematoma in the subcutaneous tissue. Patient is placed in a knee immobilizer for concern of ligamentous injury. He will follow-up with orthopedics. Disposition Clinical Impression: Knee effusion, right Disposition: HOME SELF-CARE Condition: Fair Instructions: Knee Sprain (ED), Swollen Knee Joint (ED) Prescriptions: HYDROcodone/APAP 5-325MG [Sherman 5-325] 1 tab PO Q6HR PRN #12 tab PRN Reason: Pain Ibuprofen [Motrin] 600 mg PO Q8HR PRN #24 tab PRN Reason: Pain Is patient prescribed a controlled substance at d/c from ED?: Yes When asked, does pt state using other controlled substances?: No If prescribed controlled substance>3 days was MAPS reviewed?: Prescribed <3 Days If opioid is for acute pain is fill amount 7 days or less?: Yes If Rx opioid, was Start Talking consent form obtained?: Yes Referrals: Arnold Mathur DO [Primary Care Provider] - 1-2 days Fermín Dawson MD [STAFF PHYSICIAN] - 1-2 days Time of Disposition: 13:56
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
--- NOTE | 2018-06-18 13:50 | CT ---
EXAMINATION TYPE: CT knee RT wo con DATE OF EXAM: 06/18/2018 COMPARISON: Radiograph same day HISTORY: 57-year-old male with pain after right knee injury. Fall yesterday onto knee. TECHNIQUE: Contiguous axial scanning of the right knee without IV contrast. Coronal and sagittal andrew nstructions performed. CT DLP: 134.7 mGycm Automated exposure control for dose reduction was used. FINDINGS: A small knee joint effusion but with relatively severe prepatellar and anterior infrapatellar soft ti ssue swelling. Some of this swelling shows intrinsic high density material suggesting subcutaneous he matoma, for example, refer to sagittal image 35 and axial image 46. Degenerative spurring within the patellofemoral compartment. Extensor mechanism appears intact. No ac [place] fracture is identified. IMPRESSION: 1. SMALL KNEE JOINT EFFUSION. NO ACUTE OSSEOUS ABNORMALITY SEEN. 2. HOWEVER, THERE IS SEVERE PREPATELLAR AND ANTERIOR INFRAPATELLAR SOFT TISSUE SWELLING WITH SUGGESTI ON OF INTERMIXED SUBCUTANEOUS HEMATOMA.
== END 2018-06-18 14:10 | disposition home or self-care (01) ==
LOC: EC 11:43
DX: M25.461 Effusion, right knee (principal); S80.01XA Contusion of right knee, initial encounter; J44.9 Chronic obstructive pulmonary disease, unspecified; E78.5 Hyperlipidemia, unspecified; I11.0 Hypertensive heart disease with heart failure; I50.9 Heart failure, unspecified; I25.10 Atherosclerotic heart disease of native coronary artery without angina pectoris; K21.9 Gastro-esophageal reflux disease without esophagitis; I25.2 Old myocardial infarction; G47.33 Obstructive sleep apnea (adult) (pediatric); G62.9 Polyneuropathy, unspecified; F17.200 Nicotine dependence, unspecified, uncomplicated; Z88.5 Allergy status to narcotic agent; Z88.8 Allergy status to other drugs, medicaments and biological substances; Z91.030 Bee allergy status; Z91.040 Latex allergy status; Z79.4 Long term (current) use of insulin; Z79.01 Long term (current) use of anticoagulants; Z79.02 Long term (current) use of antithrombotics/antiplatelets; Z79.51 Long term (current) use of inhaled steroids; Z79.82 Long term (current) use of aspirin; Z79.899 Other long term (current) drug therapy; Z99.89 Dependence on other enabling machines and devices; Z85.46 Personal history of malignant neoplasm of prostate; Z90.79 Acquired absence of other genital organ(s); Z53.20 Procedure and treatment not carried out because of patient's decision for unspecified reasons; W01.0XXA Fall on same level from slipping, tripping and stumbling without subsequent striking against object, initial encounter
CPT/HCPCS: 73562; 73700; 99284; 96372; L1830 ×2; J2270

== ENCOUNTER 2018-07-21 08:35 | Day surgery (SDC) | payer MEDICARE ==
[2018-07-17 13:51] VITALS: BMI 38.6
[~2018-07-21 08:35] MED LIST changes: -DEXAMETHASONE SOD PHOSPHATE 10 MG/ML 1 ML VIAL IV ONE; +LIDOCAINE 1% 20 ML VIAL (10MG/ML) FOR IV START INTRADERMA PRN; +MIDAZOLAM 2 MG/2 ML VIAL IV PRN; -Pre Op ABX Message 1 EACH MISC MISCELLANE ONE; +ceFAZolin 3 GM in SODIUM CHLORIDE 0.9% 100 ML IVPB ONE
[2018-07-21 09:16] LABS: Glucose,Whole Blood 106 mg/dL (75-99)
[2018-07-21 09:16] LABS: Glucose,Whole Blood 39 mg/dL (75-99)
[2018-07-21 09:38] LABS: Glucose,Whole Blood 115 mg/dL (75-99)
[2018-07-21] MEDS ORDERED: LIDOCAINE 1% INJ 10MG/ML (20 ML MDV) ONE (10:53)
[2018-07-21] MEDS ORDERED: SUCCINYLCHOLINE CHLORIDE VIAL 200 MG/10 ML VIAL IV ONE (10:53)
[2018-07-21] MEDS ORDERED: MIDAZOLAM 2 MG/2 ML VIAL ONE (10:53)
[2018-07-21] MEDS ORDERED: PROPOFOL 10 MG/ML 20 ML VIAL IV ONE (10:53)
[2018-07-21] MEDS ORDERED: MINERAL OIL 1 APPLIC/ML OIL MISCELLANE ONE (11:28)
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
--- NOTE | 2018-07-21 12:09 | P.PCN ---
Date of Procedure: 07/21/18 Preoperative Diagnosis: Open ulcer right ankle secondary to surgical dehiscence. Postoperative Diagnosis: Same Procedure(s) Performed: Split-thickness skin graft Anesthesia: ADDYA Surgeon: Bill Diaz Estimated Blood Loss (ml): 50 Pathology: other (Tissue Cultures) Condition: stable Disposition: PACU Indications for Procedure: The patient has a well-prepared area with granulation on the lateral right ankle , status post dehiscence of ORIF surgical site. Operative Findings: There appeared to be good blood supply following debridement. Description of Procedure: With the patient spine position, under benefit general anesthesia, we prepped and draped in standard fashion. We used a sharp curette and scalpel to remove any nonviable soft tissue down to and including and into bleeding subcutaneous tissue. We did take deep tissue cultures. We held pressure on this while we harvested a 1" x 9 cm split-thickness skin graft from the anterior lateral right thigh with the dermatome set at 10/1000s of an inch thickness. We meshed it 1-3. We then placed it on the lateral right ankle site and spread it evenly over the area and flattened all areas of the skin graft. While doing this we held pressure on the skin graft donor site. We window pained the skin graft for security utilizing Adaptic touch and Steri-Strips. Over this we placed a absorptive silver moistened with gel. Kerlix and Zhou wrap were placed to further hold it in position. The patient tolerated the procedure well and was taken recovery area in stable condition.
[2018-07-21] MEDS ORDERED: ALBUTEROL NEBULIZED 2.5 MG/3 ML INHALATION ONE (12:23)
[2018-07-21 12:27] VITALS: TEMP 97.2
[2018-07-21] MEDS ORDERED: FUROSEMIDE 10 MG/ML 4 ML VIAL IV ONE (12:30)
[2018-07-21 12:32] LABS: Glucose,Whole Blood 98 mg/dL (75-99)
[2018-07-21 13:35] VITALS: BP 119/73; PULSE 73; RESP 18
== END 2018-07-21 14:11 | disposition home or self-care (01) ==
LOC: OR 08:35
PROVIDERS: ATTEND Thoracic Surgery (Cardiothoracic Vascular Surgery)
DX: L97.319 Non-pressure chronic ulcer of right ankle with unspecified severity (principal); T81.31XA Disruption of external operation (surgical) wound, not elsewhere classified, initial encounter; J44.9 Chronic obstructive pulmonary disease, unspecified; I25.10 Atherosclerotic heart disease of native coronary artery without angina pectoris; I11.0 Hypertensive heart disease with heart failure; I50.9 Heart failure, unspecified; F17.200 Nicotine dependence, unspecified, uncomplicated; K21.9 Gastro-esophageal reflux disease without esophagitis; E78.5 Hyperlipidemia, unspecified; I25.2 Old myocardial infarction; Z87.01 Personal history of pneumonia (recurrent); Z86.711 Personal history of pulmonary embolism; Z90.79 Acquired absence of other genital organ(s); Z85.46 Personal history of malignant neoplasm of prostate; G47.33 Obstructive sleep apnea (adult) (pediatric); Z99.89 Dependence on other enabling machines and devices; E11.42 Type 2 diabetes mellitus with diabetic polyneuropathy; Z86.19 Personal history of other infectious and parasitic diseases; Z95.5 Presence of coronary angioplasty implant and graft; Z80.1 Family history of malignant neoplasm of trachea, bronchus and lung; Z80.8 Family history of malignant neoplasm of other organs or systems; Z79.01 Long term (current) use of anticoagulants; Z79.82 Long term (current) use of aspirin; Z79.51 Long term (current) use of inhaled steroids; Z79.899 Other long term (current) drug therapy; Z79.2 Long term (current) use of antibiotics; Z79.02 Long term (current) use of antithrombotics/antiplatelets; Z79.4 Long term (current) use of insulin; Z88.5 Allergy status to narcotic agent; Z88.8 Allergy status to other drugs, medicaments and biological substances; Z91.030 Bee allergy status; Z91.040 Latex allergy status
CPT/HCPCS: 87070; 87205; 87075; 15100; J2250; J0330; J1940; J0690; J2001; J2704; 87077; 87186

== ENCOUNTER 2019-01-17 | Emergency (ER) | payer MEDICARE ==
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
== END 2019-01-17 20:37 | disposition home or self-care (01) ==
CPT/HCPCS: 99282

== ENCOUNTER 2019-03-02 07:27 | Inpatient (IN) | payer MEDICARE, OTHER ==
[2019-03-02] MEDS ORDERED: ASPIRIN 81 MG PO STA (07:39)
[2019-03-02] MEDS ORDERED: NITROGLYCERIN SL TABS 0.4 MG TAB SUBLINGUAL STA ×3 (07:39)
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
[2019-03-02] MEDS ORDERED: ACETAMINOPHEN TAB 500 MG TAB PO STA (07:55)
[2019-03-02 08:17] LABS: Anisocytosis Slight; Basophils # (A) 0.1 k/uL (0-0.2); Basophils % (A) 1 %; Eosinophils # (A) 0.1 k/uL (0-0.7); Eosinophils % (A) 2 %; HCT 47.7 % (39.0-53.0); HGB 16.2 gm/dL (13.0-17.5); Lymphocytes # (A) 1.3 k/uL (1.0-4.8); Lymphocytes % (A) 22 %; MCH 29.6 pg (25.0-35.0); MCV 87.2 fL (80.0-100.0); Mean Platelet Volume 6.3; Monocytes # (A) 0.4 k/uL (0-1.0); Monocytes % (A) 6 %; Neutrophils # (A) 3.9 k/uL (1.3-7.7); Neutrophils % (A) 67 %; Platelet Count 177 k/uL (150-450); RBC 5.47 m/uL (4.30-5.90); RDW 17.3 % (11.5-15.5); WBC 5.8 k/uL (3.8-10.6)
[2019-03-02 08:27] LABS: Prothrombin Time 10.3 sec (9.0-12.0)
[2019-03-02 08:28] LABS: Partial Thromboplastin Time 28.2 sec (22.0-30.0)
--- NOTE | 2019-03-02 08:31 | XR ---
EXAMINATION TYPE: XR chest 2V DATE OF EXAM: 03/02/2019 COMPARISON: 04/16/2018 HISTORY: Shortness of breath TECHNIQUE: Frontal and lateral views of the chest are obtained. FINDINGS: Scattered senescent parenchymal changes noted. Hyperinflation compatible with COPD. No evidence for infiltrate. No evidence for atelectasis. Heart size is stable. Mediastinal structures are stable and grossly unremarkable. No evidence for hilar prominence. Degenerative changes dorsal spine. IMPRESSION: 1. No evidence for acute pulmonary disease.
[2019-03-02 08:33] LABS: ALT 67 U/L (21-72); AST 47 U/L (17-59); African American GFR (CKD) >90 (>60 ml/min/1.73 sqM); Albumin 4.2 g/dL (3.5-5.0); Alkaline Phosphatase 82 U/L (38-126); Anion Gap 11 mmol/L; Blood Urea Nitrogen 17 mg/dL (9-20); Calcium 9.3 mg/dL (8.4-10.2); Carbon Dioxide 32 mmol/L (22-30); Chloride 91 mmol/L (98-107); Glucose 216 mg/dL (74-99); Magnesium 1.8 mg/dL (1.6-2.3); Sodium 134 mmol/L (137-145); Total Bilirubin 0.5 mg/dL (0.2-1.3); Total Protein 7.2 g/dL (6.3-8.2)
[2019-03-02] MEDS ORDERED: NITROGLYCERIN SL TABS 0.4 MG TAB SUBLINGUAL PRN (09:30)
--- NOTE | 2019-03-02 11:17 | P.HPIM ---
History of Present Illness This is a pleasant 58 years old male with past medical history of coronary artery disease, congestive heart failure, hypertension, hyperlipidemia, diabetes mellitus with peripheral neuropathy, COPD/asthma, pulmonary embolism on Xarelto, GERD, prostate cancer, obstructive sleep apnea not on CPAP, chronic respiratory failure on home oxygen 2-2.5 L/m at [facility]. Patient presents this time because of chest pain. The chest pain is central but week the patient this morning, about 9-10/10 in severity radiating to the left arm, left face, left neck and back, felt like burning and numbness on continuous. MrJessica therapy came back down to 0 /10 in severity currently. Associated with some dyspnea and sweating and stomach upset which are resolved now as well. Patient has similar chest pain in 2012 and at that time he found acute coronary syndrome and stent was placed for him. Patient had another stent in 2014. He seen Dr. Isidro as an outpatient however it has been a while since the last time he saw Dr. Isidro. Patient is currently smoking about 1 pack per day, with no alcohol. Also he smokes marijuana. Patient states he's had her and Steri-Strips therapy Vitals are stable. Labs including CBC, liver enzymes, BNP were unremarkable. Troponin is negative. EKG showing normal sinus rhythm at [address]-T changes, chest x-ray, show no acute process. In the emergency room patient was started on aspirin and nitroglycerin. Chest pain, rule out cardiac causes Nicotine dependence History of coronary artery disease Chronic congestive heart failure Hypertension Hyperlipidemia 2 diabetes mellitus with peripheral neuropathy COPD/asthma, with no acute exacerbation History of pulmonary embolism Substance abuse with marijuana History of prostate cancer GERD Obstructive sleep apnea not on CPAP Chronic respiratory failure on home oxygen 2-2.5 L/m at [facility] This is a pleasant 58 years old male who presents with chest pain. We will troponins and EKG. Cardiology consult. Nicotine patch is offered but patient declined. Patient consult to quit smoking. Check hemoglobin A1c with insulin sliding scale. Labs and medication were reviewed.. Continue same treatment. Continue with symptomatic treatment. Resume home medication. Monitor lytes and vitals. DVT and GI prophylaxis. Further recommendations of the clinical course of the patient DVT prophylaxis: Xarelto GI Prophylaxis: Protonix Prognosis is guarded Review of Systems CONSTITUTIONAL: No fever, no malaise, no fatigue. HEENT: No recent visual problems or hearing problems. Denied any sore throat. CARDIOVASCULAR: No orthopnea, PND, no palpitations, no syncope. PULMONARY: No shortness of breath, no cough, no hemoptysis. GASTROINTESTINAL: No diarrhea, no nausea, no vomiting, no abdominal pain. Normoactive bowel sounds. NEUROLOGICAL: No headaches, no weakness, no numbness. HEMATOLOGICAL: Denies any bleeding or petechiae. GENITOURINARY: Denies any burning micturition, frequency, or urgency. MUSCULOSKELETAL/RHEUMATOLOGICAL: Denies any joint pain, swelling, or any muscle pain. ENDOCRINE: Denies any polyuria or polydipsia. Past Medical History Past Medical History: Asthma, Coronary Artery Disease (CAD), Cancer, Heart Failure, COPD, GERD/Reflux, Hyperlipidemia, Hypertension, Myocardial Infarction ([place]), Pneumonia, Prostate Disorder, Pulmonary Embolus (PE) Additional Past Medical History / Comment(s): Chronic CHF, bronchitis, L lung PE, prostate cancer with surgery, IDDM type II with peripheral neuropathy biltateral arms/hands/legs and feet, R leg ORIF with post op life support/wound dehiscence-debridements/skin grafting-now healed, bilateral lower extremity edema at times, SAMIR-does not use CPap d/t no way to clean it, home oxygen which pt states he is to wear 2-2.5L/NC ATC, past coccyx fracture, sinus infections. Last Myocardial Infarction Date:: 2014 History of Any Multi-Drug Resistant Organisms: VRE Date of last positivie culture/infection: 09/2017 MDRO Source:: right leg Past Surgical History: Heart Catheterization, Heart Catheterization With Stent, Orthopedic Surgery, Prostate Surgery Additional Past Surgical History / Comment(s): R leg trauma/ORIF, dehiscence R leg/debridements/wound vac/skin grafting, prostatectomy. Past Anesthesia/Blood Transfusion Reactions: Previous Problems w/ Anesthesia Additional Past Anesthesia/Blood Transfusion Reaction / Comment(s): states post op for orif of leg at [facility], was on life support, also states unable to lay flat related to COPD Date of Last Stent Placement:: 2014 Smoking Status: Current every day smoker - Past Family History Mother Family Medical History: COPD, Vascular Disorder Additional Family Medical History / Comment(s): Mother is . She had AAA. Father Family Medical History: Cancer Additional Family Medical History / Comment(s): : lung ca with brain mets. Medications and Allergies Home Medications Medication Instructions Recorded Confirmed Type Albuterol Inhaler [Ventolin Hfa 2 puff INHALATION RT-QID PRN 07/04/14 03/02/19 History Inhaler] Aspirin EC [Ecotrin Low Dose] 81 mg PO DAILY 07/04/14 03/02/19 History Budesonide/Formoterol Fumarate 2 puff INHALATION RT-BID 02/10/15 03/02/19 History [Symbicort 160-4.5 Mcg Inhaler] Nitroglycerin Sl Tabs [Nitrostat] 0.4 mg SUBLINGUAL Q5M PRN 02/10/15 03/02/19 History Omeprazole [PriLOSEC] 20 mg PO AC-BID 02/10/15 03/02/19 History Gemfibrozil [Lopid] 600 mg PO AC-BID 07/03/17 03/02/19 History Rivaroxaban [Xarelto] 20 mg PO HS 04/17/18 03/02/19 History Insulin Glargine [Lantus] 70 unit SQ QAM 06/09/18 03/02/19 History Cholecalciferol [Vitamin D3 (25 1,000 unit PO DAILY 03/02/19 03/02/19 History Mcg = 1000 Iu)] Cyanocobalamin (Vitamin B-12) 1,000 mcg PO DAILY 03/02/19 03/02/19 History [Vitamin B-12] Furosemide [Lasix] 40 mg PO BID 03/02/19 03/02/19 History Loratadine 10 mg PO DAILY 03/02/19 03/02/19 History Meloxicam 7.5 mg PO DAILY 03/02/19 03/02/19 History Metoprolol Succinate 100 mg PO DAILY 03/02/19 03/02/19 History Tiotropium 18 Mcg/Puff [Spiriva] 1 puff INHALATION RT-DAILY 03/02/19 03/02/19 History amLODIPine [Norvasc] 2.5 mg PO DAILY 03/02/19 03/02/19 History Allergies Allergy/AdvReac Type Severity Reaction Status Date / Time latex Allergy Itching/red Verified 03/02/19 08:27 skin pregabalin [From Lyrica] Allergy Dyspnea Verified 03/02/19 08:27 venom-honey bee Allergy Unknown Verified 03/02/19 08:27 [bee venom (honey bee)] atorvastatin AdvReac MUSCLE PAIN Verified 03/02/19 08:27 isosorbide mononitrate AdvReac HEADACHES Verified 03/02/19 08:27 [From Imdur] rosuvastatin calcium AdvReac MUSCLE PAIN Verified 03/02/19 08:27 [From Crestor] tramadol AdvReac SUICIDAL Verified 03/02/19 08:27 THOUGHTS venlafaxine AdvReac SUICIDAL Verified 03/02/19 08:27 THOUGHTS Physical Exam Vitals: Vital Signs Temp Pulse Resp BP Pulse Ox 03/02/19 10:30 75 20 115/81 92 L 03/02/19 10:00 70 19 134/85 91 L 03/02/19 09:30 80 21 120/79 91 L 03/02/19 09:00 79 19 128/84 91 L 03/02/19 08:30 80 19 108/65 92 L 03/02/19 08:00 89 17 133/84 90 L 03/02/19 07:31 98.7 F 85 17 133/84 90 L Intake and Output 03/01/19 03/02/19 03/02/19 22:59 06:59 14:59 Other: Weight 121.2 kg GENERAL: The patient is alert and oriented x3, not in any acute distress. Well developed, well nourished. HEENT: Pupils are round and equally reacting to light. EOMI. No scleral icterus. No conjunctival pallor. Normocephalic, atraumatic. No pharyngeal erythema. No thyromegaly. CARDIOVASCULAR: S1 and S2 present. No murmurs, rubs, or gallops. PULMONARY: Chest is clear to auscultation, no wheezing or crackles. ABDOMEN: Soft, nontender, nondistended, normoactive bowel sounds. No palpable organomegaly. MUSCULOSKELETAL: No joint swelling or deformity. EXTREMITIES: No cyanosis, clubbing, or pedal edema. NEUROLOGICAL: Gross neurological examination did not reveal any focal deficits. SKIN: No rashes. No petechiae Results CBC & Chem 7: 03/02/19 07:55 03/02/19 07:55 Labs: Abnormal Lab Results - Last 24 Hours (Table) 03/02/19 03/02/19 Range/Units 07:55 07:55 RDW 17.3 H (11.5-15.5) % Sodium 134 L (137-145) mmol/L Chloride 91 L (98-107) mmol/L Carbon Dioxide 32 H (22-30) mmol/L Glucose 216 H (74-99) mg/dL Thrombosis Risk Factor Assmnt - Choose All That Apply Any of the Below Risk Factors Present?: Yes Each Factor Represents 1 point: Abnormal pulmonary function (COPD), Age 41-60 years, Obesity (BMI >25) Other Risk Factors: Yes Each Risk Factor Represents 2 Points: Malignancy Other congenital or acquired thrombophilia - If yes, enter type in comment: No Thrombosis Risk Factor Assessment Total Risk Factor Score: 5 Thrombosis Risk Factor Assessment Level: High Risk
[2019-03-02] MEDS ORDERED: PANTOPRAZOLE 40 MG/10 ML VIAL IVP SCH (11:30)
[2019-03-02] MEDS: ALBUTEROL NEBULIZED 2.5 MG/3 ML INHALATION PRN ×3 (12:11→19:29)
--- NOTE | 2019-03-02 14:35 | P.CRDCN ---
History of Present Illness History of present illness: This is a pleasant 58-year-old male past medical history significant for coronary artery disease s/p angioplasty in the setting of an HI in 2012 he underwent stent placement to the RCA and at that time had moderate disease of the LAD, per the patient he did undergo stent placement in the setting of another myocardial infarction at the [facility] in [place] in 2014, history of PE on l doug term anti-coagulation, hypertension, dyslipidemia, COPD, diabetes mellitus, chronic nicotine dependence and mariijuana use. He does not follow regularly in the office. We have been asked to see him in consultation for chest pain. He states he woke up this morning with a burning sensation in the left precordial region with radiation into the left neck, jaw, face and down the left arm. The pain was quite persistent and not exacerbated by activity, breathing a movement of his torso. He has some associated labored breathing, nausea and mild light headedness. He denies palpitations, vomiting or diaphoresis. The discomfort lasted a couple of hours and subsided after coming to ED and receiving nitro. EKG on arrival reveals sinus mechanism with no acute ST or T wave abnormalities noted. Chest x-ray is negative for an acute cardiopulmonary process. Laboratory data reviewed, WBC 5.8, hemoglobin 16.2, platelets 177, sodium 134, potassium 4.0, creatinine 0.89, magnesium 1.8, cardiac enzymes negative 1, proBNP 23. Current daily cardiac medications include aspirin 81 mg daily, Lasix 40 mg twice a day, Lopid 600 mg twice a day, Toprol 100 mg daily, Xarelto 20 mg daily and amlodipine 2.5 mg daily. Most recent echocardiogram obtained in 2017 reveals preserved LV systolic function with ejection fraction 55-60%, mild MR and mild TR. At the time of my exam: CONSTITUTIONAL: Denies fever. Denies chills. EYES: Denies blurred vision. Denies vision changes. Denies eye pain. EARS, NOSE, MOUTH & THROAT: Denies headache. Denies sore throat. Denies ear pain. CARDIOVASCULAR: Denies chest pain. Denies shortness of breath. Denies orthopnea. Denies PND. Denies palpitations. RESPIRATORY: Denies cough. GASTROINTESTINAL: Denies abdominal pain. Denies diarrhea. Denies constipation. Denies nausea. Denies vomiting. MUSCULOSKELETAL: Denies myalgias. INTEGUMENTARY: Denies pruitis. Denies rash. NEUROLOGIC: Denies numbness. Denies tingling. Denies weakness. PSYCHIATRIC: Denies anxiety. Denies depression. ENDOCRINE: Denies fatigue. Denies weight change. Denies polydipsia. Denies polyurina. GENITOURINARY: Denies burning, hematuria or urgency with micturation. HEMATOLOGIC: Denies history of anemia. Denies bleeding. Blood pressure 131/79 heart rate 84 afebrile maintaining oxygen saturation on r oom air GENERAL: This is a 58-year-old male in no apparent distress at the time of my examination. HEENT: Head is atraumatic, normocephalic. Pupils are equal, round. Sclerae anicteric. Conjunctivae are clear. Mucous membranes of the mouth are moist. Neck is supple. There is no jugular venous distention. No carotid bruit is heard. LUNGS: Coarse sounding at the bases, no wheezes or rales. No chest wall tenderness is noted on palpation or with deep breathing. Diminished bilaterally. HEART: Regular rate and rhythm without murmurs, rubs or gallops. S1 and S2 heard. ABDOMEN: Soft, nontender. Bowel sounds are heard. No organomegaly noted. EXTREMITIES: Bilateral lower extremity 1+ pitting edema and no calf tenderness noted. Chronic per the patient VASCULAR: Radial and dorsalis pedis pulses palpated, no evidence of clubbing. NEUROLOGIC: Patient is awake, alert and oriented x3. ASSESSMENT Chest pain History of coronary artery disease status post placement to the RCA and LAD Hypertension Dyslipidemia Diabetes mellitus COPD Chronic nicotine dependence PLAN Continue to obtain serial cardiac enzymes to rule out an acute event. Obtain 2D echocardiogram and doppler study to assess cardiac structure and function. Recommend smoking cessation. Will proceed with either stress testing or coronary angiography depending on clinical course. Thank you kindly for this consultation. Nurse Practitioner note has been reviewed, I agree with a documented findings and plan of care. Patient was seen and examined. Past Medical History Past Medical History: Asthma, Coronary Artery Disease (CAD), Cancer, Heart Failure, COPD, GERD/Reflux, Hyperlipidemia, Hypertension, Myocardial Infarction ([place]), Pneumonia, Prostate Disorder, Pulmonary Embolus (PE) Additional Past Medical History / Comment(s): Chronic CHF, bronchitis, L lung PE, prostate cancer with surgery, IDDM type II with peripheral neuropathy biltateral arms/hands/legs and feet, R leg ORIF with post op life support/wound dehiscence-debridements/skin grafting-now healed, bilateral lower extremity edema at times, SAMIR-does not use CPap d/t no way to clean it, home oxygen which pt states he is to wear 2-2.5L/NC ATC, past coccyx fracture, sinus infections. Last Myocardial Infarction Date:: 2014 History of Any Multi-Drug Resistant Organisms: VRE Date of last positivie culture/infection: 09/2017 MDRO Source:: right leg Past Surgical History: Heart Catheterization, Heart Catheterization With Stent, Orthopedic Surgery, Prostate Surgery Additional Past Surgical History / Comment(s): R leg trauma/ORIF, dehiscence R leg/debridements/wound vac/skin grafting, prostatectomy. Past Anesthesia/Blood Transfusion Reactions: Previous Problems w/ Anesthesia Additional Past Anesthesia/Blood Transfusion Reaction / Comment(s): states post op for orif of leg at [facility], was on life support, also states unable to lay flat related to COPD Date of Last Stent Placement:: 2014 Smoking Status: Current every day smoker - Past Family History Mother Family Medical History: COPD, Vascular Disorder Additional Family Medical History / Comment(s): Mother is . She had AAA. Father Family Medical History: Cancer Additional Family Medical History / Comment(s): : lung ca with brain mets. Medications and Allergies Home Medications Medication Instructions Recorded Confirmed Type Albuterol Inhaler [Ventolin Hfa 2 puff INHALATION RT-QID PRN 07/04/14 03/02/19 History Inhaler] Aspirin EC [Ecotrin Low Dose] 81 mg PO DAILY 07/04/14 03/02/19 History Budesonide/Formoterol Fumarate 2 puff INHALATION RT-BID 02/10/15 03/02/19 History [Symbicort 160-4.5 Mcg Inhaler] Nitroglycerin Sl Tabs [Nitrostat] 0.4 mg SUBLINGUAL Q5M PRN 02/10/15 03/02/19 History Omeprazole [PriLOSEC] 20 mg PO AC-BID 02/10/15 03/02/19 History Gemfibrozil [Lopid] 600 mg PO AC-BID 07/03/17 03/02/19 History Rivaroxaban [Xarelto] 20 mg PO HS 04/17/18 03/02/19 History Insulin Glargine [Lantus] 70 unit SQ QAM 06/09/18 03/02/19 History Cholecalciferol [Vitamin D3 (25 1,000 unit PO DAILY 03/02/19 03/02/19 History Mcg = 1000 Iu)] Cyanocobalamin (Vitamin B-12) 1,000 mcg PO DAILY 03/02/19 03/02/19 History [Vitamin B-12] Furosemide [Lasix] 40 mg PO BID 03/02/19 03/02/19 History Loratadine 10 mg PO DAILY 03/02/19 03/02/19 History Meloxicam 7.5 mg PO DAILY 03/02/19 03/02/19 History Metoprolol Succinate 100 mg PO DAILY 03/02/19 03/02/19 History Tiotropium 18 Mcg/Puff [Spiriva] 1 puff INHALATION RT-DAILY 03/02/19 03/02/19 History amLODIPine [Norvasc] 2.5 mg PO DAILY 03/02/19 03/02/19 History Allergies Allergy/AdvReac Type Severity Reaction Status Date / Time latex Allergy Itching/red Verified 03/02/19 08:27 skin pregabalin [From Lyrica] Allergy Dyspnea Verified 03/02/19 08:27 venom-honey bee Allergy Unknown Verified 03/02/19 08:27 [bee venom (honey bee)] atorvastatin AdvReac MUSCLE PAIN Verified 03/02/19 08:27 isosorbide mononitrate AdvReac HEADACHES Verified 03/02/19 08:27 [From Imdur] rosuvastatin calcium AdvReac MUSCLE PAIN Verified 03/02/19 08:27 [From Crestor] tramadol AdvReac SUICIDAL Verified 03/02/19 08:27 THOUGHTS venlafaxine AdvReac SUICIDAL Verified 03/02/19 08:27 THOUGHTS Physical Exam Vitals: Vital Signs Temp Pulse Pulse Resp BP BP Pulse Ox 03/02/19 13:20 84 18 03/02/19 12:52 97.7 F 84 18 131/79 89 L 03/02/19 12:23 73 03/02/19 12:11 76 03/02/19 11:00 75 20 120/73 92 L 03/02/19 10:30 75 20 115/81 92 L 03/02/19 10:00 70 19 134/85 91 L 03/02/19 09:30 80 21 120/79 91 L 03/02/19 09:00 79 19 128/84 91 L 03/02/19 08:30 80 19 108/65 92 L 03/02/19 08:00 89 17 133/84 90 L 03/02/19 07:31 98.7 F 85 17 133/84 90 L Intake and Output 03/01/19 03/02/19 03/02/19 22:59 06:59 14:59 Intake Total 420 Balance 420 Intake: Oral 420 Other: Voiding Method Toilet Weight 121.2 kg Results 03/02/19 07:55 03/02/19 07:55 Cardiac Enzymes 03/02/19 03/02/19 Range/Units 07:55 07:55 AST 47 (17-59) U/L Troponin I <0.012 (0.000-0.034) ng/mL Coagulation 03/02/19 Range/Units 07:55 PT 10.3 (9.0-12.0) sec APTT 28.2 (22.0-30.0) sec CBC 03/02/19 Range/Units 07:55 WBC 5.8 (3.8-10.6) k/uL RBC 5.47 (4.30-5.90) m/uL Hgb 16.2 (13.0-17.5) gm/dL Hct 47.7 (39.0-53.0) % Plt Count 177 (150-450) k/uL Comprehensive Metabolic Panel 03/02/19 Range/Units 07:55 Sodium 134 L (137-145) mmol/L Potassium 4.0 (3.5-5.1) mmol/L Chloride 91 L (98-107) mmol/L Carbon Dioxide 32 H (22-30) mmol/L BUN 17 (9-20) mg/dL Creatinine 0.89 (0.66-1.25) mg/dL Glucose 216 H (74-99) mg/dL Calcium 9.3 (8.4-10.2) mg/dL AST 47 (17-59) U/L ALT 67 (21-72) U/L Alkaline Phosphatase 82 (38-126) U/L Total Protein 7.2 (6.3-8.2) g/dL Albumin 4.2 (3.5-5.0) g/dL Current Medications Generic Name Dose Route Start Last Admin Trade Name Freq PRN Reason Stop Dose Admin Albuterol Sulfate 2.5 mg 03/02/19 11:10 03/02/19 12:11 Ventolin Nebulized INHALATION 2.5 mg RT-QID PRN Administration Shortness Of Breath Amlodipine Besylate 2.5 mg 03/03/19 09:00 Norvasc PO DAILY [facility] Aspirin 81 mg 03/03/19 09:00 Aspirin PO DAILY [facility] Budesonide/Formoterol Fumarate 2 puff 03/02/19 20:00 Symbicort 160-4.5 Mcg Inhaler INHALATION RT-BID [facility] Cholecalciferol 1,000 unit 03/03/19 09:00 Vitamin D3 (25 Mcg = 1000 Iu) PO DAILY [facility] Cyanocobalamin 1,000 mcg 03/03/19 09:00 Vitamin B-12 PO DAILY [facility] Fenofibrate 160 mg 03/02/19 17:30 Lofibra PO AC-SUPPER [facility] Furosemide 40 mg 03/02/19 16:00 Lasix PO BID@0900,1600 [facility] Insulin Detemir 70 unit 03/03/19 07:00 Levemir SQ QAM@0700 [facility] Ipratropium Hendricks 0.5 mg 03/03/19 08:00 Atrovent Nebulized INHALATION RT-QID [facility] Loratadine 10 mg 03/03/19 09:00 Claritin PO DAILY [facility] Metoprolol Succinate 100 mg 03/03/19 09:00 Toprol Xl PO DAILY [facility] Nitroglycerin 0.4 mg 03/02/19 09:30 Nitrostat SUBLINGUAL Q5M PRN Chest Pain Nitroglycerin 1 inch 03/02/19 12:00 Nitro-Bid Oint TOPICAL Q6HR [facility] Pantoprazole Sodium 40 mg 03/03/19 07:30 Protonix PO AC-BRKFST [facility] Rivaroxaban 20 mg 03/02/19 21:00 Xarelto PO HS [facility] Sodium Chloride 10 ml 03/02/19 21:00 Saline Flush IV BID [facility] Intake and Output 03/01/19 03/02/19 03/02/19 22:59 06:59 14:59 Intake Total 420 Balance 420 Intake: Oral 420 Other: Voiding Method Toilet Weight 121.2 kg Patient Weight 03/03/19 06:59 Weight 121.2 kg 03/02/19 07:55 03/02/19 07:55
[2019-03-02] MEDS: NITROGLYCERIN OINT 1 INCH/GM PACKET TOPICAL SCH ×4 (15:13→23:49)
[2019-03-02] MEDS: NICOTINE 21MG/24HR PATCH TRANSDERM SCH (15:23)
[2019-03-02] MEDS: IBUPROFEN 400 MG TAB PO PRN ×2 (15:24→20:16)
[2019-03-02] MEDS ORDERED: HEPARIN SODIUM,PORCINE 5,000 UNIT/ML 1 ML VIAL IV PRN (15:41)
[2019-03-02] MEDS: HEPARIN SOD,PORK IN 0.45% NACL 25,000 UNIT in 0.45% NACL 1 250ML.BAG IV SCH (16:28)
[2019-03-02] MEDS: FUROSEMIDE 40 MG TAB PO SCH (16:32)
[2019-03-02 16:49] LABS: Glucose,Whole Blood 180 mg/dL (75-99)
[2019-03-02] MEDS: FENOFIBRATE 160 MG TAB PO SCH (18:52)
[2019-03-02] MEDS: SYMBICORT 160-4.5 MCG INHALER INHALATION SCH (19:29)
[2019-03-02 20:06] LABS: Glucose,Whole Blood 165 mg/dL (75-99)
[2019-03-02] MEDS ORDERED: RIVAROXABAN 20 MG TAB PO SCH (21:00)
[2019-03-02 21:17] LABS: Hemoglobin A1C 6.8 % (4.0-6.0)
[2019-03-03] MEDS: NITROGLYCERIN OINT 1 INCH/GM PACKET TOPICAL SCH ×3 (03:20→18:20)
[2019-03-03 06:46] LABS: Cholesterol 198 mg/dL (<200); HDL Cholesterol 23 mg/dL (40-60)
[2019-03-03 06:54] LABS: Triglycerides 657 mg/dL (<150)
[2019-03-03 07:08] LABS: Glucose,Whole Blood 144 mg/dL (75-99)
[2019-03-03] MEDS: SYMBICORT 160-4.5 MCG INHALER INHALATION SCH ×2 (07:27→19:41)
[2019-03-03] MEDS: IPRATROPIUM 0.5 MG/2.5 ML NEBU INHALATION SCH ×4 (07:28→19:41)
[2019-03-03] MEDS ORDERED: ASPIRIN 325 MG TAB PO SCH (09:00)
[2019-03-03] MEDS ORDERED: amLODIPine 2.5 MG TAB PO SCH (09:00)
[2019-03-03] MEDS ORDERED: ALPRAZolam 0.5 MG TAB PO PRN (10:32)
[2019-03-03] MEDS ORDERED: ALPRAZolam 0.25 MG TAB PO PRN (10:32)
[2019-03-03] MEDS ORDERED: SODIUM CHLORIDE 0.9% 1,000 ML in EMPTY BAG 1 BAG IV ONE (10:32)
[2019-03-03] MEDS ORDERED: ASPIRIN 81 MG PO ONE (10:35)
--- NOTE | 2019-03-03 10:40 | P.PN ---
Subjective This is a pleasant 58-year-old male past medical history significant for coronary artery disease s/p angioplasty in the setting of an [place] in 2012 he underwent stent placement to the RCA and at that time had moderate disease of the LAD, per the patient he did undergo stent placement in the setting of another myocardial infarction at the [facility] in [place] in 2014, history of PE on manager terminal anti-coagulation, hypertension, dyslipidemia, COPD, diabetes mellitus, chronic nicotine dependence and marijuana use. He is seen and examined laying flat in bed in no acute distress. He denies ongoing chest pain. He denies shortness of breath, dizziness or palpitations. Blood pressure 150/81 heart rate 92. Laboratory data reviewed, troponin 0.200 and 0.299, triglycerides 657. Currently maintained on aspirin 81 mg daily, lasix 40 mg BID and toprol 100 mg daily. GENERAL: This is a 58-year-old male in no apparent distress at the time of my examination. HEENT: Head is atraumatic, normocephalic. Pupils are equal, round. Sclerae anicteric. Conjunctivae are clear. Mucous membranes of the mouth are moist. Neck is supple. There is no jugular venous distention. No carotid bruit is heard. LUNGS: Clear to auscultation bilatreally, no wheezes, rales or rhonchi. No chest wall tenderness is noted on palpation or with deep breathing. Diminished bilaterally. HEART: Regular rate and rhythm without murmurs, rubs or gallops. S1 and S2 heard . EXTREMITIES: Bilateral lower extremity 1+ pitting edema and no calf tenderness noted. Chronic per the patient ASSESSMENT NSTEMI Chest pain History of coronary artery disease status post placement to the RCA and LAD Hypertension Dyslipidemia Diabetes mellitus COPD Chronic nicotine dependence PLAN Proceed with coronary angiography to assess for progression of CAD. Last dose of xarelto was 03/01 in the evening. I have discussed the risks, benefits and alternative therapies for the above-mentioned procedure and for both sedation/analgesia as well as necessary blood product administration, if indicated, as they pertain to this patient. The patient has indicated understanding and acceptance of the risks and procedures discussed. Questions have been answered appropriately and the case has been boarded for today with Dr. Fernando. Echocardiogram has been reviewed by Dr. Fernando. Further recommendations to follow based on clinical course. Nurse Practitioner note has been reviewed, I agree with a documented findings and plan of care. Patient was seen and examined. Objective - Vital Signs Vital signs: Vital Signs Temp 97.6 F 03/03/19 07:52 Pulse 92 03/03/19 07:52 Resp 18 03/03/19 04:00 BP 150/81 03/03/19 07:52 Pulse Ox 94 L 03/03/19 09:42 Intake & Output 03/02/19 03/03/19 03/03/19 18:59 06:59 18:59 Intake Total 1020 73.044 112.438 Balance 1020 73.044 112.438 Weight 121.2 kg Intake: Intake, IV Titration 73.044 112.438 Amount Heparin Sod,Pork in 0.45% 73.044 112.438 NaCl 25,000 unit In 0.45 % NaCl 1 250ml.bag @ 8.2 UNITS/KG/HR 9.938 mls/hr IV .Q24H [facility] Rx#: [id number] Oral 420 Other 600 Other: Voiding Method Toilet Toilet Toilet # Voids 1 1 - Labs CBC & Chem 7: 03/02/19 07:55 03/02/19 07:55 Labs: Abnormal Lab Results - Last 24 Hours (Table) 03/02/19 03/02/19 03/02/19 Range/Units 07:55 14:32 16:47 APTT (22.0-30.0) sec POC Glucose (mg/dL) 180 H (75-99) mg/dL Hemoglobin A1c 6.8 H (4.0-6.0) % Troponin I 0.200 H* (0.000-0.034) ng/mL Triglycerides (<150) mg/dL HDL Cholesterol (40-60) mg/dL 03/02/19 03/02/19 03/03/19 Range/Units 19:51 20:05 06:02 APTT (22.0-30.0) sec POC Glucose (mg/dL) 165 H (75-99) mg/dL Hemoglobin A1c (4.0-6.0) % Troponin I 0.299 H* (0.000-0.034) ng/mL Triglycerides 657 H (<150) mg/dL HDL Cholesterol 23 L (40-60) mg/dL 03/03/19 03/03/19 Range/Units 06:02 07:07 APTT 32.1 H (22.0-30.0) sec POC Glucose (mg/dL) 144 H (75-99) mg/dL Hemoglobin A1c (4.0-6.0) % Troponin I (0.000-0.034) ng/mL Triglycerides (<150) mg/dL HDL Cholesterol (40-60) mg/dL
[2019-03-03] MEDS: ASPIRIN 81 MG PO SCH (10:46)
[2019-03-03] MEDS: CHOLECALCIFEROL 1,000 UNIT TAB PO SCH (10:46)
[2019-03-03] MEDS: CYANOCOBALAMIN 500 MCG TAB PO SCH (10:46)
[2019-03-03] MEDS: FUROSEMIDE 40 MG TAB PO SCH ×2 (10:46→17:10)
[2019-03-03] MEDS: INSULIN DETEMIR (LEVEMIR) 100 UNIT/ML SYR SQ SCH (10:47)
[2019-03-03] MEDS: METOPROLOL SUCCINATE (ER) 100 MG TAB.ER.24H PO SCH (10:47)
[2019-03-03] MEDS: LORATADINE 10 MG TAB PO SCH (10:47)
[2019-03-03] MEDS: PANTOPRAZOLE 40 MG TABLET PO SCH (10:47)
[2019-03-03] MEDS: NICOTINE 21MG/24HR PATCH TRANSDERM SCH (10:48)
[2019-03-03 11:50] LABS: Glucose,Whole Blood 116 mg/dL (75-99)
--- NOTE | 2019-03-03 12:00 | ECHOF ---
Referral Reason:cp MEASUREMENTS -------- HEIGHT: 162.6 cm WEIGHT: 121.1 kg BP: 131/79 IVSd: 1.3 cm (0.6 - 1.1) LVIDd: 4.5 cm (3.9 - 5.3) LVPWd: 1.0 cm (0.6 - 1.1) IVSs: 1.5 cm LVIDs: 2.7 cm LVPWs: 1.3 cm LA Diam: 4.0 cm (2.7 - 3.8) LAESV Index (A-L): 23.29 ml/m Ao Diam: 3.3 cm (2.0 - 3.7) AV Cusp: 1.6 cm (1.5 - 2.6) LA Diam: 3.9 cm (2.7 - 3.8) MV EXCURSION: 14.837 mm (> 18.000) MV EF SLOPE: 52 mm/s (70 - 150) EPSS: 0.7 cm MV E Gen: 0.50 m/s MV DecT: 254 ms MV A Gen: 0.75 m/s MV E/A Ratio: 0.67 RAP: 5.00 mmHg RVSP: 15.28 mmHg FINDINGS -------- Sinus rhythm. Morbid Obesity The left ventricular size is normal. There is mild concentric left ventricular hypertrophy. The d iastolic filling pattern is normal for the age of the patient 7.48. The right ventricle is normal in size. The left atrial size is normal. Normal LA size by volume 22+/-6 ml/m2. The right atrial size is normal. There is mild aortic valve sclerosis. There is no evidence of aortic regurgitation. Mild mitral annular calcification present. There is trace mitral regurgitation. Right ventricular systolic pressure is normal at < 35 mmHg. There is no evidence of pulmonary hyper tension. The pulmonic valve was not well visualized. The aortic root size is normal. There is no pericardial effusion. CONCLUSIONS -------- 1. Sinus rhythm. 2. Morbid Obesity 3. The left ventricular size is normal. 4. There is mild concentric left ventricular hypertrophy. 5. The diastolic filling pattern is normal for the age of the patient 7.48 6. The right ventricle is normal in size. 7. The left atrial size is normal. 8. Normal LA size by volume 22+/-6 ml/m2. 9. The right atrial size is normal. 10. There is mild aortic valve sclerosis. 11. Mild mitral annular calcification present. 12. There is trace mitral regurgitation. 13. Right ventricular systolic pressure is normal at < 35 mmHg. 14. There is no evidence of pulmonary hypertension. 15. The pulmonic valve was not well visualized. 16. The aortic root size is normal. 17. There is no pericardial effusion. PROCESSING MANAGER: Sol Sexton RDCS
[2019-03-03] MEDS ORDERED: LIDOCAINE 1% INJ 10MG/ML (20 ML MDV) ONE ×2 (14:21→14:49)
[2019-03-03] MEDS ORDERED: fentaNYL (PF) 50 MCG/ML 2 ML AMP ONE (14:42)
[2019-03-03] MEDS ORDERED: LIDOCAINE 1% INJ 10MG/ML (20 ML MDV) SQ ONE (14:44)
[2019-03-03] MEDS ORDERED: IV FLUID CONTINUATION 900 ML IV ONE (14:45)
[2019-03-03] MEDS ORDERED: fentaNYL (PF) 50 MCG/ML 2 ML AMP IV ONE (14:45)
[2019-03-03] MEDS ORDERED: BIVALIRUDIN BOLUS 250 MG/50 ML IV ONE (15:14)
[2019-03-03] MEDS ORDERED: BIVALIRUDIN 250 MG in SODIUM CHLORIDE 0.9% 50 ML IV ONE ×2 (15:16→15:52)
[2019-03-03] MEDS ORDERED: PRASUGREL 10 MG TAB ONE ×2 (15:17)
[2019-03-03] MEDS ORDERED: IOPAMIDOL-370 125ML BTL INJ ONE ×2 (15:26→16:00)
[2019-03-03] MEDS ORDERED: PRASUGREL 10 MG TAB PO ONE (15:26)
[2019-03-03] MEDS ORDERED: MIDAZOLAM (PF) 2 MG/2 ML VIAL IV ONE (15:26)
[2019-03-03] MEDS: NITROGLYCERIN 1000MCG/10ML SYRINGE INTRACORON ONE ×2 (15:43→15:44)
[2019-03-03] MEDS ORDERED: HYDROmorphone 1 MG/ML 1 ML SYRINGE IVP ONE (16:01)
[2019-03-03] MEDS ORDERED: ATROPINE SULFATE 0.1 MG/ML 10ML SYRINGE IV PRN (16:07)
[2019-03-03] MEDS ORDERED: ZOLPIDEM 5 MG TAB PO PRN (16:07)
[2019-03-03] MEDS ORDERED: RX INFO: IV CONTRAST WAS GIVEN 1 EACH MISC MISCELLANE PRN (16:07)
[2019-03-03] MEDS ORDERED: MAG HYDROX/AL HYDROX/SIMETH 30 ML CUP PO PRN (16:07)
[2019-03-03] MEDS ORDERED: NITROGLYCERIN SL TABS 0.4 MG TAB SUBLINGUAL PRN (16:07)
[2019-03-03] MEDS ORDERED: SODIUM CHLORIDE 0.9% 1,000 ML IV SCH (16:15)
[2019-03-03] MEDS: ALBUTEROL NEBULIZED 2.5 MG/3 ML INHALATION PRN (16:26)
[2019-03-03] MEDS: FENOFIBRATE 160 MG TAB PO SCH (17:09)
[2019-03-03 17:23] LABS: Glucose,Whole Blood 97 mg/dL (75-99)
[2019-03-03] MEDS: HEPARIN SOD,PORK IN 0.45% NACL 25,000 UNIT in 0.45% NACL 1 250ML.BAG IV SCH (18:34)
[2019-03-03 20:40] LABS: Glucose,Whole Blood 172 mg/dL (75-99)
--- NOTE | 2019-03-03 20:56 | CC ---
CARDIAC CATHETERIZATION REPORT Mr. Matamoros is a 58-year-old gentleman who was admitted with the symptoms of chest discomfort, abnormal troponin suggestive of non ST-segment elevation myocardial infarction. In view of that, the patient was recommended to have a cardiac catheterization for definitive diagnosis. The patient has a past history of a stent. The details of which are not available. PROCEDURE DESCRIPTION: The right groin was prepped and draped in the usual manner and the right femoral artery was entered using micropuncture needle under ultrasound guidance, a #6-Amharic sheath was placed in. Selective coronary angiography was then performed in multiple projections and the left ventricular pressures were obtained. Patient tolerated the procedure well. HEMODYNAMICS: Left ventricular end-diastolic pressure is 18-20 mmHg prior to angiography. No gradient is noted across the aortic valve. SELECTIVE CORONARY ANGIOGRAPHY: Left main coronary artery is normal and patent. LAD is a good caliber blood vessel and is normal. Circumflex coronary artery is a large caliber blood vessel and gives rise to a good size obtuse marginal branch. The first obtuse marginal branch has ostial stenosis of about 50% to 60% and obtuse marginal branch itself in proximal portion has 80% stenosis. Right coronary artery is a large caliber blood vessel and distal right coronary artery prior to the bifurcation has about 85% stenosis. Left ventricular end-diastolic pressure is 18-20 mmHg. FINAL IMPRESSION: There is 85% stenosis in the distal right coronary artery. First obtuse marginal branch has a 70-80 percent stenosis and the LAD is normal. RECOMMENDATIONS: Films were reviewed with Dr. Muir and we will proceed with a stent to the RCA and a stent to the obtuse marginal branch. MMODL / IJN: [id number] /
--- NOTE | 2019-03-03 21:50 | PTCA ---
PERCUTANEOUSTRANS CORORONARY ANGIOGRAPHY DATE OF SERVICE: 03/03/2019 PERFORMING PHYSICIAN: Bernardino Muir MD, case management rn. PROCEDURES PERFORMED: 1. Successful stenting of the distal right coronary artery using a 4 x 15 mm Xience drug-eluting stent with excellent angiographic results and reduction of stenosis from 90% to 0%. 2. Successful stenting of stenting of the first obtuse marginal branch of the left circumflex using a 3.5 x 15 and another 3.5 x 15 Xience drug-eluting stent with excellent angiographic results and reduction of stenosis from 80% to 0%. INDICATION: This is a pleasant 58-year-old gentleman with history of hypertension and dyslipidemia who presented to the hospital with chest discomfort. He was seen by Dr. Fernando, who recommended proceeding with coronary angiogram, given the nature of his pain which was quite anginal. The heart catheterization revealed severe 2-vessel coronary artery disease involving the RCA and left circumflex. Because of that, PCI of both arteries was advised. APPROACH: Right common femoral artery. COMPLICATIONS: None. LEVEL OF SEDATION: Moderate, with sedation length of 48 minutes. PROCEDURE DESCRIPTION: Please refer to the diagnostic heart catheterization that was performed by Dr. Fernando earlier today. Anticoagulation was initiated using Angiomax. Subsequently I did engage the RCA using JR4 guide. The RCA was wired using a run-through wire. I did balloon angioplasty using a 3.5 x 12 mm balloon before I deployed a 4.0 x 15 mm Xience HADLEY where the stent was positioned under fluoroscopic guidance and deployed under its nominal pressure. The following angiogram showed excellent angiographic results. Subsequently I did engage the left main using XP 3 5 guide. I used the same run- through wire to wire the OM1. I did balloon angioplasty using a 3.5 x 12 mm balloon before I deployed a 3.5 x 15 mm Xience HADLEY where the stent was positioned under fluoroscopic guidance and deployed under its nominal pressure. The following angiogram showed what seemed to be possible distal edge dissection, which I decided to cover with a stent. So I deployed another 3.5 x 15 mm stent where the stent was positioned under fluoroscopic guidance and deployed under its nominal pressure. The following angiogram showed excellent angiographic results. The area of overlap between the 2 stents was dilated using the stent balloon. The procedure was completed without any complication. POST-PROCEDURE MANAGEMENT: 1. Dual anti-platelet therapy. 2. Risk factor modifications. 3. Follow up with Dr. Fernando. MMCHERIL / SANJUANITAN: [id number] /
[2019-03-04] MEDS: NITROGLYCERIN OINT 1 INCH/GM PACKET TOPICAL SCH ×3 (01:12→12:21)
[2019-03-04] MEDS: PANTOPRAZOLE 40 MG TABLET PO SCH (06:00)
[2019-03-04 06:08] LABS: Glucose,Whole Blood 154 mg/dL (75-99)
[2019-03-04] MEDS: IPRATROPIUM 0.5 MG/2.5 ML NEBU INHALATION SCH ×3 (06:24→15:46)
[2019-03-04 07:26] LABS: African American GFR (CKD) >90 (>60 ml/min/1.73 sqM)
[2019-03-04] MEDS: INSULIN DETEMIR (LEVEMIR) 100 UNIT/ML SYR SQ SCH (07:48)
[2019-03-04 08:01] LABS: Glucose,Whole Blood 121 mg/dL (75-99)
[2019-03-04] MEDS: SYMBICORT 160-4.5 MCG INHALER INHALATION SCH (08:35)
[2019-03-04] MEDS ORDERED: PRASUGREL 10 MG TAB PO SCH (09:00)
[2019-03-04 09:13] VITALS: RESP 18; TEMP 98.3
[2019-03-04] MEDS: CHOLECALCIFEROL 1,000 UNIT TAB PO SCH (09:16)
[2019-03-04] MEDS: FUROSEMIDE 40 MG TAB PO SCH (09:16)
[2019-03-04] MEDS: LORATADINE 10 MG TAB PO SCH (09:16)
[2019-03-04] MEDS: CYANOCOBALAMIN 500 MCG TAB PO SCH (09:16)
[2019-03-04] MEDS: NICOTINE 21MG/24HR PATCH TRANSDERM SCH (09:16)
[2019-03-04] MEDS: METOPROLOL SUCCINATE (ER) 100 MG TAB.ER.24H PO SCH (09:16)
[2019-03-04] MEDS: ASPIRIN 81 MG PO SCH (09:16)
[2019-03-04] MEDS ORDERED: ACETAMINOPHEN TAB 325 MG TAB PO STA (10:28)
[2019-03-04 10:43] VITALS: BP 139/78
--- NOTE | 2019-03-04 11:18 | CDI ---
Documentation Clarification Form Date: 03/04/2019 11:11:16 AM From: Kesha BaconAdamsonMARCUS, CCDS Admit Date: 03/03/2019 11:49:00 AM Patient Name: Obi Matamoros Visit Number: [id number] Discharge Date: ATTENTION: The Clinical Documentation Specialists (CDI) and [facility] Coding Staff appreciate your assistance in clarifying documentation. Please respond to the clarification below the line at the bottom and electronically sign. The CDI & [facility] Coding staff will review the response and follow-up if needed. Please note: Queries are made part of the Legal Health Record. If you have any questions, please contact the author of this message via ITS. Dr. Rios Sheet: Per the History & Physical: "Chronic congestive heart failure." History/Risk Factors: CHF, CAD w/previous TX & stents, DM w/bilateral lower extremity neuropathy, Prostate CA status post prostatectomy, Hypertension, Hyperlipidemia, Pneumonia, PE on Xarelto, COPD/Asthma with chronic respiratory failure on home O2. Current smoker. Family history of lung CA. Clinical Indicators: Presented with chest pain & pressure, sweating, abdominal discomfort & dyspnea. VS: Stable. BNP: 23 Echocardiogram Results: Sinus rhythm. Morbid obesity. Mild LVH, Mild aortic valve sclerosis, Trace MR, no pulmonary hypertension. Chest X Ray: No acute pulmonary disease. Treatment: ASA, Nitro sl, INH Albuterol, IV PPI, Nitropaste, Nicotine patch, IV heparin drip, po Lasix 40 mg BID (home dose.) In your professional opinion, can you please clarify the acuity and type of CHF if known? Systolic Heart Failure: Diastolic Heart Failure: Systolic & Diastolic Heart Failure: Unable to Determine Other, please specify (Last Revision: August 2017) unable to determine , no heart failure currently MTDD
--- NOTE | 2019-03-04 11:24 | CDI ---
Documentation Clarification Form Date: 03/04/2019 11:19:00 AM From: Kesha BaconAdamsonMARCUS, CCDS Admit Date: 03/03/2019 11:49:00 AM Patient Name: Obi Matamoros Visit Number: [id number] Discharge Date: ATTENTION: The Clinical Documentation Specialists (CDI) and [facility] Coding Staff appreciate your assistance in clarifying documentation. Please respond to the clarification below the line at the bottom and electronically sign. The CDI & [facility] Coding staff will review the response and follow-up if needed. Please note: Queries are made part of the Legal Health Record. If you have any questions, please contact the author of this message via ITS. Dr. Rios Sheet: Per the History & Physical: "Chronic respiratory failure on home oxygen 2-2.5L nc." History/Risk Factors: CHF, CAD w/previous [place] & stents, DM w/bilateral lower extremity neuropathy, Prostate CA status post prostatectomy, Hypertension, Hyperlipidemia, Pneumonia, PE on Xarelto, COPD/Asthma with chronic respiratory failure on home O2. Current smoker. Family history of lung CA. Clinical Indicators: Presented with chest pain & pressure, sweating, abdominal discomfort & dyspnea. VS: PO 90 3Lnc LAB: Na 134*, Cl 91*, CO2 32^ Echocardiogram Results: Sinus rhythm. Morbid obesity. Mild LVH, Mild aortic valve sclerosis, Trace MR, no pulmonary hypertension. Chest X Ray: No acute pulmonary disease. Treatment: ASA, Nitro sl, INH Albuterol, IV PPI, Nitropaste, Nicotine patch, IV heparin drip, po Lasix 40 mg BID (home dose.) In your professional opinion, can you please clarify if these findings signify one of the following conditions? Chronic hypoxic respiratory failure Chronic hypercapnic respiratory failure Chronic "other" respiratory failure Other Diagnosis, please specify Unable to determine (Last Revision: August 2017) acute hypoxic resp failure MTDD
[2019-03-04 11:45] LABS: Glucose,Whole Blood 182 mg/dL (75-99)
--- NOTE | 2019-03-04 12:03 | P.EN ---
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
[2019-03-04 13:30] VITALS: PULSE 82
[2019-03-04 13:39] VITALS: BMI 36.1
--- NOTE | 2019-03-04 15:18 | P.PN ---
Subjective Progress Note Date: 03/04/19 This is a pleasant 58-year-old male past medical history significant for coronary artery disease s/p angioplasty in the setting of an [place] in 2012 he underwent stent placement to the RCA and at that time had moderate disease of the LAD, per the patient he did undergo stent placement in the setting of another myocardial infarction at the [facility] in [place] in 2014, history of PE on senior living anti-coagulation, hypertension, dyslipidemia, COPD, diabetes mellitus, chronic nicotine dependence and mariijuana use. He does not follow regularly in the office. We have been asked to see him in consultation for chest pain. He states he woke up this morning with a burning sensation in the left precordial region with radiation into the left neck, jaw, face and down the left arm. The pain was quite persistent and not exacerbated by activity, breathing a movement of his torso. He has some associated labored breathing, nausea and mild light headedness. He denies palpitations, vomiting or diaphoresis. The discomfort lasted a couple of hours and subsided after coming to ED and receiving nitro. 03/04/2019 Patient was taken to the cardiac catheterization lab where he underwent successful stenting of the distal right coronary artery and first obtuse marginal branch. He was seen and examined this morning, denied any chest pain or difficulty in breathing. He did complain of some discomfort at his groin site this morning, groin is soft, there areas of ecchymosis, no hematoma, no bruit. Blood pressure 126/74 with a heart rate of 80. Objective - Vital Signs Vital signs: Vital Signs Temp 98.3 F 03/04/19 07:40 Pulse 82 03/04/19 12:00 Resp 18 03/04/19 12:00 BP 139/78 03/04/19 10:42 Pulse Ox 87 L 03/04/19 10:42 Intake & Output 03/03/19 03/04/19 03/04/19 18:59 06:59 18:59 Intake Total 477.438 600 Balance 477.438 600 Weight 117.4 kg 117.4 kg Intake: IV 365 Sodium Chloride 0.9% 1, 0 000 ml @ 75 mls/hr IV . [id number] [facility] Rx#:[id number] Intake, IV Titration 112.438 Amount Heparin Sod,Pork in 0.45% 112.438 NaCl 25,000 unit In 0.45 % NaCl 1 250ml.bag @ 8.2 UNITS/KG/HR 9.938 mls/hr IV .Q24H [facility] Rx#: [id number] Oral 600 Other: Voiding Method Toilet Toilet Toilet # Voids 1 1 1 # Bowel Movements 2 - Exam GENERAL: This is a 58-year-old male in no apparent distress at the time of my examination. HEENT: Head is atraumatic, normocephalic. Pupils are equal, round. Sclerae anicteric. Conjunctivae are clear. Mucous membranes of the mouth are moist. Neck is supple. There is no jugular venous distention. No carotid bruit is heard. LUNGS: Coarse sounding at the bases, no wheezes or rales. No chest wall tenderness is noted on palpation or with deep breathing. Diminished bilaterally. HEART: Regular rate and rhythm without murmurs, rubs or gallops. S1 and S2 heard. ABDOMEN: Soft, nontender. Bowel sounds are heard. No organomegaly noted. EXTREMITIES: Bilateral lower extremity 1+ pitting edema and no calf tenderness noted. Chronic per the patient right groin is soft, small area of ecchymosis, no hematoma, no bruit. VASCULAR: Radial and dorsalis pedis pulses palpated, no evidence of clubbing. NEUROLOGIC: Patient is awake, alert and oriented x3. - Labs CBC & Chem 7: 03/02/19 07:55 03/04/19 06:36 Labs: Abnormal Lab Results - Last 24 Hours (Table) 03/03/19 03/04/19 03/04/19 Range/Units 20:37 06:05 07:40 POC Glucose (mg/dL) 172 H 154 H 121 H (75-99) mg/dL 03/04/19 Range/Units 11:43 POC Glucose (mg/dL) 182 H (75-99) mg/dL Assessment and Plan Plan: Assessment and plan #1 Chest pain, status post angioplasty and stenting of the RCA and obtuse marginal #2 History of coronary artery disease status post placement to the RCA and LAD #3 Hypertension #4 Dyslipidemia #5Diabetes mellitus #6 COPD #7 Chronic nicotine dependence Plan From cardiology's perspective, patient may be able to be discharged home today, follow-up appointment with Dr. VC Fernando the office post discharge. DNP note has been reviewed, I agree with a documented findings and plan of care. Patient was seen and examined.
--- NOTE | 2019-03-04 21:49 | P.DS ---
Providers Date of admission: 03/03/19 11:49 Attending physician: Gabriel Almodovar MD Consults: 03/02/19 09:30 Consult Physician Urgent Consulting Provider: Bernardino Muir Consult Reason/Comments: cp Do you want consulting provider notified?: Yes 03/03/19 16:07 Consult Physician Routine Consulting Provider: [facility] Consult Reason/Comments: Post Interventional patient Do you want consulting provider notified?: Already Contacted Primary care physician: [facility] Course: Diagnoses: Chest pain, secondary to acute coronary syndrome status post angiography and stent placement in the right coronary artery and obtuse marginal branch of the left circumflex artery Nicotine dependence History of coronary artery disease Chronic congestive heart failure Hypertension Hyperlipidemia Impaired glucose tolerance, and prediabetes, with hemoglobin A1c is 6.8% COPD/asthma, with no acute exacerbation Chronic hypoxic respiratory failure, mostly related to his COPD however patient is not compliant and he does not want to wear it. Patient has oxygen at home, to which he is not adherent to History of pulmonary embolism Substance abuse with marijuana History of prostate cancer GERD Obstructive sleep apnea not on CPAP Chronic respiratory failure on home oxygen 2-2.5 L/m at [facility] course: This is a pleasant 58-year-old male past medical history significant for coronary artery disease s/p angioplasty in the setting of an OR in 2012 he underwent stent placement to the RCA and at that time had moderate disease of the LAD, per the patient he did undergo stent placement in the setting of another myocardial infarction at the [facility] in [place] in 2014, 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 He presents with chest pain, similar to previous heart attack. His troponin start trending up from less than 0.012 to 0.22. Patient was evaluated by [facility] and he was taken to cardiac cath with successful stenting of the distal right coronary artery, and the first obtuse marginal branch of the left circumflex coronary artery . Post-procedure patient feels much better and his chest pain is significantly improved to 0/10 in severity, no dyspnea, no dizziness, no change in urine or bowel habits and no fever or other symptoms on the day of discharge. Patient was started on aspirin and Plavix and he was counseled about the importance of adherence to therapy and he verbalized understanding and acceptance. Risks, benefits and alternatives are explained for him as well. Patient also has oxygen at home however he is not adherent to it. Patient was saturating 90-92% on room air, however he might drop some below that if he moves. Patient consult he does not want to wear it. Risks including but not limited to respiratory failure, cardiac arrhythmia, organ dysfunction and/or are explained to him he verbalized understanding however currently he still does not want to comply with it. Patient has capacity to make medical decision based upon my evaluation. Patient was cleared for discharge by cardiology. The patient was eager to be discharged home today Problems and management plan were discussed with the patient and he verbalized understanding and acceptance Patient was found stable and can be discharged home however he needs follow-up as an outpatient. Patient was instructed to follow up with PCP within one week and patient agrees. Patient agrees with the appointments made for him with the PCP and the timing and states he will follow-up. [facility] office was contacted and stated they will call pt, pt informed and instructed to f/u. risk of bleeding including but not limited to risk of GI and brain bleed are explained and he agrees with to continue with therapy anticoagulation and anti- platelets Gen: patient is a AAOx3, no distress CVS: S1-S2, RRR, no murmur Lungs: B/L CTA, no wheezing Abdomen: soft, no distention, no tenderness, positive bowel sounds Extremity: no leg edema or induration Time spent more than 35 minutes Patient Condition at Discharge: Stable Plan - Discharge Summary Discharge Rx Participant: No New Discharge Prescriptions: New Nicotine 21Mg/24Hr Patch [Habitrol] 1 patch TRANSDERM DAILY patch Clopidogrel [Plavix] 75 mg PO DAILY #30 tablet Continue Albuterol Inhaler [Ventolin Hfa Inhaler] 2 puff INHALATION RT-QID PRN PRN Reason: Shortness Of Breath Omeprazole [PriLOSEC] 20 mg PO AC-BID Nitroglycerin Sl Tabs [Nitrostat] 0.4 mg SUBLINGUAL Q5M PRN PRN Reason: Angina Budesonide/Formoterol Fumarate [Symbicort 160-4.5 Mcg Inhaler] 2 puff INHALATION RT-BID Gemfibrozil [Lopid] 600 mg PO AC-BID Rivaroxaban [Xarelto] 20 mg PO HS Insulin Glargine [Lantus] 10 unit SQ QAM Cyanocobalamin (Vitamin B-12) [Vitamin B-12] 1,000 mcg PO DAILY Loratadine 10 mg PO DAILY Metoprolol Succinate 100 mg PO DAILY Tiotropium 18 Mcg/Puff [Spiriva] 1 puff INHALATION RT-DAILY Cholecalciferol [Vitamin D3 (25 Mcg = 1000 Iu)] 1,000 unit PO DAILY Aspirin EC [Ecotrin Low Dose] 81 mg PO DAILY #30 tab Furosemide [Lasix] 40 mg PO BID #60 tab Discontinued amLODIPine [Norvasc] 2.5 mg PO DAILY Meloxicam 7.5 mg PO DAILY Discharge Medication List Albuterol Inhaler [Ventolin Hfa Inhaler] 2 puff INHALATION RT-QID PRN 07/04/14 [History] Budesonide/Formoterol Fumarate [Symbicort 160-4.5 Mcg Inhaler] 2 puff INHALATION RT-BID 02/10/15 [History] Nitroglycerin Sl Tabs [Nitrostat] 0.4 mg SUBLINGUAL Q5M PRN 02/10/15 [History] Omeprazole [PriLOSEC] 20 mg PO AC-BID 02/10/15 [History] Gemfibrozil [Lopid] 600 mg PO AC-BID 07/03/17 [History] Rivaroxaban [Xarelto] 20 mg PO HS 04/17/18 [History] Insulin Glargine [Lantus] 10 unit SQ QAM 06/09/18 [History] Cholecalciferol [Vitamin D3 (25 Mcg = 1000 Iu)] 1,000 unit PO DAILY 03/02/19 [History] Cyanocobalamin (Vitamin B-12) [Vitamin B-12] 1,000 mcg PO DAILY 03/02/19 [History] Loratadine 10 mg PO DAILY 03/02/19 [History] Metoprolol Succinate 100 mg PO DAILY 03/02/19 [History] Tiotropium 18 Mcg/Puff [Spiriva] 1 puff INHALATION RT-DAILY 03/02/19 [History] Aspirin EC [Ecotrin Low Dose] 81 mg PO DAILY #30 tab 03/04/19 [Rx] Clopidogrel [Plavix] 75 mg PO DAILY #30 tablet 03/04/19 [Rx] Furosemide [Lasix] 40 mg PO BID #60 tab 03/04/19 [Rx] Nicotine 21Mg/24Hr Patch [Habitrol] 1 patch TRANSDERM DAILY patch 03/04/19 [Rx] Follow up Appointment(s)/Referral(s): [facility] [Provider Group] - 1 Week (Spoke to call center receptionist. Office will call with appointment time.) [facility] [REFERRING] - 03/10/19 3:00 pm (Friday) Patient Instructions/Handouts: *Surgery [facility] - After Heart Catheterization - [facility] Instructions, Left Heart Catheterization (DC) Activity/Diet/Wound Care/Special Instructions: cardiac diet activity is limited till you see your doctor we recommend to use home oxygen as recommended by your doctor Discharge Disposition: HOME SELF-CARE
== END 2019-03-04 15:53 | disposition home or self-care (01) | DRG 246 ==
LOC: EC 07:27 → 1SOBS 09:30 → OBSVTOIN 03-03 11:49 → 3SCARD 03-03 16:53
PROVIDERS: ADMIT Internal Medicine; ATTEND Internal Medicine
PROC: 027135Z Dilation of Coronary Artery, Two Arteries with Two Drug-eluting Intraluminal Devices, Percutaneous Approach (ICD-10-PCS; principal; 2019-03-03 14:45)
PROC: 4A023N7 Measurement of Cardiac Sampling and Pressure, Left Heart, Percutaneous Approach (ICD-10-PCS; 2019-03-03 14:45)
PROC: B2111ZZ Fluoroscopy of Multiple Coronary Arteries using Low Osmolar Contrast (ICD-10-PCS; 2019-03-03 14:45)
DX: I21.4 Non-ST elevation (NSTEMI) myocardial infarction (principal); J96.21 Acute and chronic respiratory failure with hypoxia; I11.0 Hypertensive heart disease with heart failure; E11.42 Type 2 diabetes mellitus with diabetic polyneuropathy; I50.9 Heart failure, unspecified; I25.119 Atherosclerotic heart disease of native coronary artery with unspecified angina pectoris; J44.9 Chronic obstructive pulmonary disease, unspecified; G47.33 Obstructive sleep apnea (adult) (pediatric); K21.9 Gastro-esophageal reflux disease without esophagitis; E78.5 Hyperlipidemia, unspecified; I25.2 Old myocardial infarction; F17.210 Nicotine dependence, cigarettes, uncomplicated; Z99.81 Dependence on supplemental oxygen; Z79.82 Long term (current) use of aspirin; Z79.51 Long term (current) use of inhaled steroids; Z79.4 Long term (current) use of insulin; Z79.1 Long term (current) use of non-steroidal anti-inflammatories (NSAID); Z79.01 Long term (current) use of anticoagulants; Z79.899 Other long term (current) drug therapy; Z95.5 Presence of coronary angioplasty implant and graft; Z71.6 Tobacco abuse counseling; Z86.711 Personal history of pulmonary embolism; Z87.01 Personal history of pneumonia (recurrent); Z85.46 Personal history of malignant neoplasm of prostate; Z86.19 Personal history of other infectious and parasitic diseases; Z90.79 Acquired absence of other genital organ(s); Z87.81 Personal history of (healed) traumatic fracture; Z98.890 Other specified postprocedural states; Z99.89 Dependence on other enabling machines and devices; Z88.5 Allergy status to narcotic agent; Z88.8 Allergy status to other drugs, medicaments and biological substances; Z91.030 Bee allergy status; Z91.040 Latex allergy status; Z82.5 Family history of asthma and other chronic lower respiratory diseases; Z80.1 Family history of malignant neoplasm of trachea, bronchus and lung; Z80.8 Family history of malignant neoplasm of other organs or systems; Z82.49 Family history of ischemic heart disease and other diseases of the circulatory system
CPT/HCPCS: 36415; 71046; 80053; 80061; 82565; 83036; 83735; 83880; 84484; 85025; 85610; 85730; 93005; 93306; 93458; 94640; 94760; 96374; 99285; C1874

== ENCOUNTER → 2019-03-30 | Outpatient (CLI) | payer MEDICARE, OTHER ==
--- NOTE | 2019-03-30 22:01 | CONS ---
CONSULTATION REASON FOR CONSULTATION: A consultation for sleep apnea. HISTORY OF PRESENT ILLNESS: This is a 58-year-old, morbidly obese, male patient with multiple medical problems, and comorbidities. The patient was recently involved in a myocardial infarction. He underwent cardiac catheterization, 3 additional stents were placed in addition to the previous two that he had earlier. He has diabetes, hypertension, COPD, previous history of pulmonary embolism. He is maintained on long-term anticoagulation. He is a smoker and continues to smoke cigarettes. He was diagnosed having obstructive sleep apnea back in 2002 through the [facility]. He was given CPAP machine and after machine broke, he stopped using it and he is currently excessively tired, sleepy and symptomatic regarding obstructive sleep apnea. He has snoring. He is quitting breathing in the middle of the night. He is waking up tired and has problems with attention and memory, concentration and irritability and some degree of depression. He is restless and his sleep is quite fragmented throughout the night. He is averaging around 4-6 hours of sleep and he is unable to maintain sleep due to above-mentioned complaints. He wakes up at least 7-8 times in the middle of the night. His sleep is very much broken. He sleeps on his side. He takes multiple naps during the day. Tries to take a 20-30 minute nap at a time. PAST MEDICAL HISTORY: Obstructive sleep apnea diagnosed in 2002. Diabetes mellitus. Coronary artery disease. Previous MT. Hypertension, COPD, pulmonary embolism. He is a smoker and has hyperlipidemia. PAST SURGICAL HISTORY: Includes cardiac catheterization and insertion of stents, most recent of which was done a few weeks back at [facility]. DRUG ALLERGIES: ALLERGIES ARE MULTIPLE INCLUDING PREGABALIN, ATORVASTATIN, IMDUR, CRESTOR, TRAMADOL, VENLAFAXINE AND LATEX. HE IS ALSO ALLERGIC TO HONEY BEE. OUTPATIENT MEDICATION LIST: Includes Advair HFA on a p.r.n. basis. Symbicort 2 puffs twice a day. 160/4.5, Spiriva one inhalation a day, vitamin D 325 mcg p.o. daily, vitamin B12 1000 mcg p.o. daily, Lopid 600 mg p.o. daily, Lantus insulin 10 units daily, Claritin 10 mg p.o. daily, metoprolol 100 mg p.o. daily, Nitroglycerine tablets on a p.r.n. basis, omeprazole 20 mg p.o. daily, Xarelto 20 mg p.o. daily. SOCIAL HISTORY: The patient is a smoker. Smokes one pack of cigarettes a day. He has been smoking since the age of 15. Carries more than 40 pack-year smoking history. No history of alcohol. No history of IV drugs. FAMILY HISTORY: Mother of old age. Father of lung cancer. REVIEW OF SYSTEMS: Fourteen-point review of system was done. Positive findings are mentioned above in history of present illness. He is very much tired, sleepy, fatigued and somnolent. His current sleep apnea is not well treated and the patient is struggling with increased fatigue and sleepiness. His sleep also broken as mentioned above. His current Clover Score is at 24. No reported history of any motor vehicle accident because of feeling drowsy or sleepy. PHYSICAL EXAMINATION: BP is 121/69, pulse 94, respirations 16, temperature 98.1. Saturation is 91% on room air. Height is 5 feet 9 inches, weight is 264, BMI 38.4. Neck size 20.5 inches. General appearance is obese, calm and comfortable. Head is atraumatic, normocephalic. NECK: Supple. Mallampati class IV. There is no goiter or neck mass. LUNGS: Clear to auscultation. HEART: Heart sounds are regular rate and rhythm. Normal S1, S2. No S3, S4. No murmurs. ABDOMEN: Soft, nontender. No organomegaly. EXTREMITIES: No edema. No cyanosis or clubbing. NEUROLOGIC: Alert and oriented x3. No focal neurological deficits. PSYCHIATRIC: Negative for anxiety or depression for now. IMPRESSION: 1. Symptomatic obstructive sleep apnea. Diagnosis needs to be established and the patient needs to be treated based on his symptoms and various other comorbidities. 2. Chronic hypersomnia Clover score of 24, related to obstructive sleep apnea. 3. Obesity with a BMI of 38.4. 4. Coronary artery disease. Previous myocardial infarction with post stenting of the coronaries. 5. Chronic obstructive pulmonary disease currently on a combination of Symbicort and Spiriva. 6. Smoker. 7. Hypertension. 8. Hyperlipidemia. 9. Diabetes mellitus. 10.History of pulmonary embolism on long-term anticoagulation with Xarelto. PLAN: We will bring the [facility] to the [facility] and undergo a split night study. Within the first two hours, he should be able to establish diagnosis which seems to be quite severe and following that, the patient will be subjected to a CPAP/BiPAP titration. Depending on his clinical response and compliance, we will make further recommendations. Optimize sleep hygiene measures. Smoking cessation. Weight loss. Tight control of cardiovascular risk factors. We will follow. TEMI / WILLIS: [id number] /
== END ==
LOC: SLEEP 13:18
PROVIDERS: ATTEND Internal Medicine Critical Care Medicine
DX: G47.33 Obstructive sleep apnea (adult) (pediatric) (principal); E66.9 Obesity, unspecified; I25.10 Atherosclerotic heart disease of native coronary artery without angina pectoris; I25.2 Old myocardial infarction; J44.9 Chronic obstructive pulmonary disease, unspecified; I10 Essential (primary) hypertension; E78.5 Hyperlipidemia, unspecified; E11.9 Type 2 diabetes mellitus without complications; F17.210 Nicotine dependence, cigarettes, uncomplicated; Z68.38 Body mass index [BMI] 38.0-38.9, adult; Z95.5 Presence of coronary angioplasty implant and graft; Z86.711 Personal history of pulmonary embolism; Z79.01 Long term (current) use of anticoagulants
CPT/HCPCS: 99211

== ENCOUNTER 2019-05-30 02:48 | Inpatient (IN) | payer MEDICARE ==
[2019-05-30 03:17] LABS: Anisocytosis Slight; Basophils % (A) 1 %; Eosinophils # (A) 0.1 k/uL (0-0.7); Eosinophils % (A) 1 %; HCT 51.2 % (39.0-53.0); HGB 16.4 gm/dL (13.0-17.5); Lymphocytes # (A) 1.8 k/uL (1.0-4.8); Lymphocytes % (A) 21 %; MCH 29.2 pg (25.0-35.0); MCHC 32.1 g/dL (31.0-37.0); MCV 90.9 fL (80.0-100.0); Mean Platelet Volume 7.9; Monocytes # (A) 0.7 k/uL (0-1.0); Monocytes % (A) 8 %; Neutrophils # (A) 5.6 k/uL (1.3-7.7); Neutrophils % (A) 66 %; Platelet Count 187 k/uL (150-450); Poikilocytosis Slight; RBC 5.63 m/uL (4.30-5.90); RDW 17.6 % (11.5-15.5); WBC 8.5 k/uL (3.8-10.6)
--- NOTE | 2019-05-30 03:17 | ED ---
Chest Pain HPI - General Chief Complaint: Chest Pain Stated Complaint: Chest pain Time Seen by Provider: 05/30/19 02:57 Source: EMS Mode of arrival: EMS Limitations: no limitations - History of Present Illness Initial Comments: Obi is a morbidly obese 58-year-old male who presents the ER today for evaluation of chest pain. Patient reports the pain began while sleeping. Pain is retrosternal similar to previous [place]. Patient reports he took his nitro home with no improvement in pain. Was given aspirin by EMS with no improvement in pain. Patient has chronic shortness of breath secondary to COPD and continued cigarette smoking. - Related Data Home Medications Medication Instructions Recorded Confirmed Albuterol Inhaler [Ventolin Hfa 2 puff INHALATION RT-QID PRN 07/04/14 03/02/19 Inhaler] Budesonide/Formoterol Fumarate 2 puff INHALATION RT-BID 02/10/15 03/02/19 [Symbicort 160-4.5 Mcg Inhaler] Nitroglycerin Sl Tabs [Nitrostat] 0.4 mg SUBLINGUAL Q5M PRN 02/10/15 03/02/19 Omeprazole [PriLOSEC] 20 mg PO AC-BID 02/10/15 03/02/19 Gemfibrozil [Lopid] 600 mg PO AC-BID 07/03/17 03/02/19 Rivaroxaban [Xarelto] 20 mg PO HS 04/17/18 03/02/19 Insulin Glargine [Lantus] 10 unit SQ QAM 06/09/18 03/03/19 Cholecalciferol [Vitamin D3 (25 1,000 unit PO DAILY 03/02/19 03/02/19 Mcg = 1000 Iu)] Cyanocobalamin (Vitamin B-12) 1,000 mcg PO DAILY 03/02/19 03/02/19 [Vitamin B-12] Loratadine 10 mg PO DAILY 03/02/19 03/02/19 Metoprolol Succinate 100 mg PO DAILY 03/02/19 03/02/19 Tiotropium 18 Mcg/Puff [Spiriva] 1 puff INHALATION RT-DAILY 03/02/19 03/02/19 Previous Rx's Medication Instructions Recorded Aspirin EC [Ecotrin Low Dose] 81 mg PO DAILY #30 tab 03/04/19 Clopidogrel [Plavix] 75 mg PO DAILY #30 tablet 03/04/19 Furosemide [Lasix] 40 mg PO BID #60 tab 03/04/19 Nicotine 21Mg/24Hr Patch [Habitrol] 1 patch TRANSDERM DAILY patch 03/04/19 Allergies Allergy/AdvReac Type Severity Reaction Status Date / Time latex Allergy Itching/red Verified 05/30/19 02:57 skin pregabalin [From Lyrica] Allergy Dyspnea Verified 05/30/19 02:57 venom-honey bee Allergy Unknown Verified 05/30/19 02:57 [bee venom (honey bee)] atorvastatin AdvReac MUSCLE PAIN Verified 05/30/19 02:57 isosorbide mononitrate AdvReac HEADACHES Verified 05/30/19 02:57 [From Imdur] rosuvastatin calcium AdvReac MUSCLE PAIN Verified 05/30/19 02:57 [From Crestor] tramadol AdvReac SUICIDAL Verified 05/30/19 02:57 THOUGHTS venlafaxine AdvReac SUICIDAL Verified 05/30/19 02:57 THOUGHTS Review of Systems ROS Statement: Those systems with pertinent positive or pertinent negative responses have been documented in the HPI. ROS Other: All systems not noted in ROS Statement are negative. EKG Findings - EKG Comments: EKG Findings:: EKG was obtained due to complaint of chest pain, EKG obtained at 3:04 AM, rate 85 rhythm sinus there is normal axis, normal intervals, IL 152, QRS 68, QTC 428 there are no acute ST elevations or depressions no evidence of acute ischemia or infarction. When this EKG was compared EKG obtained in March of this year there is no change in morphology. Past Medical History Past Medical History: Asthma, Coronary Artery Disease (CAD), Cancer, Heart Failure, COPD, GERD/Reflux, Hyperlipidemia, Hypertension, Myocardial Infarction (TX), Pneumonia, Prostate Disorder, Pulmonary Embolus (PE) Additional Past Medical History / Comment(s): Chronic CHF, bronchitis, L lung PE, prostate cancer with surgery, IDDM type II with peripheral neuropathy biltateral arms/hands/legs and feet, R leg ORIF with post op life support/wound dehiscence-debridements/skin grafting-now healed, bilateral lower extremity edema at times, SAMIR-does not use CPap d/t no way to clean it, home oxygen which pt states he is to wear 2-2.5L/NC ATC, past coccyx fracture, sinus infections. Last Myocardial Infarction Date:: 2014 History of Any Multi-Drug Resistant Organisms: VRE Date of last positivie culture/infection: 09/2017 MDRO Source:: right leg Past Surgical History: Heart Catheterization, Heart Catheterization With Stent, Orthopedic Surgery, Prostate Surgery Additional Past Surgical History / Comment(s): R leg trauma/ORIF, dehiscence R leg/debridements/wound vac/skin grafting, prostatectomy. Past Anesthesia/Blood Transfusion Reactions: Previous Problems w/ Anesthesia Additional Past Anesthesia/Blood Transfusion Reaction / Comment(s): states post op for or[facility] leg [facility], was on life support, also states unable to lay flat related to COPD Date of Last Stent Placement:: 2014 Past Psychological History: Anxiety, Depression Smoking Status: Current every day smoker Past Alcohol Use History: None Reported Past Drug Use History: None Reported - Past Family History Mother Family Medical History: COPD, Vascular Disorder Additional Family Medical History / Comment(s): Mother is . She had AAA. Father Family Medical History: Cancer Additional Family Medical History / Comment(s): : lung ca with brain mets. General Exam - General Exam Comments Initial Comments: Physical Exam GENERAL: Chronically ill-appearing obese male HENT: Normocephalic, Atraumatic. EYES: PERRL, EOMI PULMONARY: Mild expiratory wheezing in all lung montes CARDIOVASCULAR: Regular rate and rhythm Warm and well perfused extremities ABDOMEN: Soft and nontender with normal bowel sounds. SKIN: Skin is clear with no lesions or rashes and otherwise unremarkable. : Deferred NEUROLOGIC: Patient is alert and oriented x3. Moving all extremities spontaneously MUSCULOSKELETAL: Normal extremities with adequate strength and full range of motion. No lower extremity swelling or edema. No calf tenderness. PSYCHIATRIC: Normal psychiatric evaluation. Limitations: no limitations Course Vital Signs 05/30/19 05/30/19 02:49 04:11 Temperature 98.3 F Pulse Rate 86 91 Respiratory 22 18 Rate Blood Pressure 113/83 142/72 O2 Sat by Pulse 95 93 L Oximetry Chest Pain MDM - MDM The patient was seen and evaluated history is obtained from the patient This is an obese 58-year-old male smoker with a known history of coronary artery disease with stenting in March of this year. Patient presents the ER today for evaluation of chest pain off and from sleep. On evaluation the patient is quite sleepy appears to be in no distress he does report chest pain but is able to sleep through it. Labs were obtained, there is moderate hemolysis which caused measured hyperkalemia however I do not believe this is a true hyperkalemia due to the hemolysis. Troponin was negative. Given the patient's significant history and multiple risk factors we will place the patient observation for further evaluation by cardiology. Disposition Clinical Impression: Chest pain, Acute exacerbation of chronic obstructive pulmonary disease (COPD), Nicotine dependence, Hyperlipemia, HTN (hypertension) Disposition: ADMITTED IP TO THIS HOSP Condition: Stable Referrals: Arnold Mathur DO [Primary Care Provider] - 1-2 days
[2019-05-30 03:29] LABS: ALT 46 U/L (4-49); AST 61 U/L (17-59); African American GFR (CKD) >90 (>60 ml/min/1.73 sqM); Albumin 4.3 g/dL (3.5-5.0); Alkaline Phosphatase 66 U/L (38-126); Anion Gap 7 mmol/L; Blood Urea Nitrogen 18 mg/dL (9-20); Carbon Dioxide 30 mmol/L (22-30); Chloride 94 mmol/L (98-107); Glucose 140 mg/dL (74-99); Magnesium 1.9 mg/dL (1.6-2.3); Non-African American GFR(CKD) >90 (>60 ml/min/1.73 sqM); Sodium 131 mmol/L (137-145); Total Bilirubin 0.9 mg/dL (0.2-1.3); Total Protein 7.4 g/dL (6.3-8.2)
[2019-05-30 03:30] LABS: Potassium 5.2 mmol/L (3.5-5.1)
--- NOTE | 2019-05-30 03:35 | XR ---
EXAMINATION TYPE: XR chest 2V DATE OF EXAM: 05/30/2019 COMPARISON: March 02, 2019 HISTORY: Chest pain TECHNIQUE: 2 views FINDINGS: There is some minimal linear density right lung base. Heart is normal. There is no pulmonar y consolidation or heart failure. Bony thorax is intact. IMPRESSION: Mild right middle lobe scarring or subsegmental atelectasis unchanged. There is clearing of some atelectasis left lung base compared to old exam. Normal heart.
[2019-05-30 03:54] LABS: Partial Thromboplastin Time 23.4 sec (22.0-30.0); Prothrombin Time 10.5 sec (9.0-12.0)
[2019-05-30] MEDS: ASPIRIN 325 MG TAB PO SCH (09:09)
--- NOTE | 2019-05-30 11:09 | P.CRDCN ---
History of Present Illness History of present illness: This is Dr. Wise dictating a consult on this patient The patient was interviewed and examined by me IMPRESSION / ASSESSMENT: Patient presenting with pounding in a butterfly-like sensation in the chest which she describes as chest discomfort Very different from the symptoms he experienced in March However he did say he was having discomfort in the chest Known coronary artery disease Status post cardiac stenting in March Current smoker Dyslipidemia Essential hypertension PLAN: 3 serial cardiac enzymes Start IV heparin Continue cardiac medications Serial ECGs D-dimer Further recommendations to follow HPI 58-year-old male patient with a history of coronary artery disease presenting with a sensation of a rapid heartbeat and fluttering in the chest which she calls chest discomfort. He took a nitroglycerin without any relief. This is very different from the symptoms he experienced in March prior to his coronary stenting No dizziness no loss of consciousness He continues to smoke ROS: No fever chills or rigors, no cough, phlegm or expectoration, no nausea, vomiting or diarrhea, no hematuria, dysuria, no musculoskeletal complaints, no strokes or seizures, no skin lesions. EXAMINATION: Afebrile, pulse rate in the 90s Blood pressure 132/86 mmHg Breath sounds are reduced bilaterally no rhonchi no crackles Normal heart sounds no murmurs to gallop or rub no irregularity Abdomen soft nontender Extremities are warm BMI 37, thick neck REVIEW OF LABS, ECG & MEDICAL DATA First cardiac enzyme normal second cardiac enzyme borderline +0.134 potassium 5.2 kidney function normal AST 61 Twelve-lead ECG shows sinus rhythm normal MT narrow QRS no definite ST segment abnormalities Past Medical History Past Medical History: Asthma, Coronary Artery Disease (CAD), Cancer, Heart Failure, COPD, GERD/Reflux, Hyperlipidemia, Hypertension, Myocardial Infarction ([place]), Pneumonia, Prostate Disorder, Pulmonary Embolus (PE) Additional Past Medical History / Comment(s): Chronic CHF, bronchitis, L lung PE, prostate cancer with surgery, IDDM type II with peripheral neuropathy biltateral arms/hands/legs and feet, R leg ORIF with post op life support/wound dehiscence-debridements/skin grafting-now healed, bilateral lower extremity edema at times, SAMIR-does not use CPap d/t no way to clean it, home oxygen which pt states he is to wear 2-2.5L/NC ATC, past coccyx fracture, sinus infections. Last Myocardial Infarction Date:: 2014 History of Any Multi-Drug Resistant Organisms: VRE Date of last positivie culture/infection: 09/2017 MDRO Source:: right leg Past Surgical History: Heart Catheterization, Heart Catheterization With Stent, Orthopedic Surgery, Prostate Surgery Additional Past Surgical History / Comment(s): R leg trauma/ORIF, dehiscence R leg/debridements/wound vac/skin grafting, prostatectomy. Past Anesthesia/Blood Transfusion Reactions: Previous Problems w/ Anesthesia Additional Past Anesthesia/Blood Transfusion Reaction / Comment(s): states post op for orif of leg at [facility], was on life support, also states unable to lay flat related to COPD Date of Last Stent Placement:: 2014 Past Psychological History: Anxiety, Depression Smoking Status: Current every day smoker Past Alcohol Use History: None Reported Past Drug Use History: None Reported - Past Family History Mother Family Medical History: COPD, Vascular Disorder Additional Family Medical History / Comment(s): Mother is . She had AAA. Father Family Medical History: Cancer Additional Family Medical History / Comment(s): : lung ca with brain mets. Medications and Allergies Home Medications Medication Instructions Recorded Confirmed Type Albuterol Inhaler [Ventolin Hfa 2 puff INHALATION RT-QID PRN 07/04/14 03/02/19 History Inhaler] Budesonide/Formoterol Fumarate 2 puff INHALATION RT-BID 02/10/15 03/02/19 History [Symbicort 160-4.5 Mcg Inhaler] Nitroglycerin Sl Tabs [Nitrostat] 0.4 mg SUBLINGUAL Q5M PRN 02/10/15 03/02/19 History Omeprazole [PriLOSEC] 20 mg PO AC-BID 02/10/15 03/02/19 History Gemfibrozil [Lopid] 600 mg PO AC-BID 07/03/17 03/02/19 History Rivaroxaban [Xarelto] 20 mg PO HS 04/17/18 03/02/19 History Insulin Glargine [Lantus] 10 unit SQ QAM 06/09/18 03/03/19 History Cholecalciferol [Vitamin D3 (25 1,000 unit PO DAILY 03/02/19 03/02/19 History Mcg = 1000 Iu)] Cyanocobalamin (Vitamin B-12) 1,000 mcg PO DAILY 03/02/19 03/02/19 History [Vitamin B-12] Loratadine 10 mg PO DAILY 03/02/19 03/02/19 History Metoprolol Succinate 100 mg PO DAILY 03/02/19 03/02/19 History Tiotropium 18 Mcg/Puff [Spiriva] 1 puff INHALATION RT-DAILY 03/02/19 03/02/19 History Aspirin EC [Ecotrin Low Dose] 81 mg PO DAILY #30 tab 03/04/19 Rx Clopidogrel [Plavix] 75 mg PO DAILY #30 tablet 03/04/19 Rx Furosemide [Lasix] 40 mg PO BID #60 tab 03/04/19 Rx Nicotine 21Mg/24Hr Patch [Habitrol] 1 patch TRANSDERM DAILY patch 03/04/19 Rx Allergies Allergy/AdvReac Type Severity Reaction Status Date / Time latex Allergy Itching/red Verified 05/30/19 02:57 skin pregabalin [From Lyrica] Allergy Dyspnea Verified 05/30/19 02:57 venom-honey bee Allergy Unknown Verified 05/30/19 02:57 [bee venom (honey bee)] atorvastatin AdvReac MUSCLE PAIN Verified 05/30/19 02:57 isosorbide mononitrate AdvReac HEADACHES Verified 05/30/19 02:57 [From Imdur] rosuvastatin calcium AdvReac MUSCLE PAIN Verified 05/30/19 02:57 [From Crestor] tramadol AdvReac SUICIDAL Verified 05/30/19 02:57 THOUGHTS venlafaxine AdvReac SUICIDAL Verified 05/30/19 02:57 THOUGHTS Physical Exam Vitals: Vital Signs Temp Pulse Resp BP Pulse Ox 05/30/19 10:44 100 18 132/86 92 L 05/30/19 07:23 90 22 157/93 92 L 05/30/19 06:41 97.9 F 94 22 132/90 90 L 05/30/19 04:11 91 18 142/72 93 L 05/30/19 02:49 98.3 F 86 22 113/83 95 Intake and Output 05/29/19 05/30/19 05/30/19 22:59 06:59 14:59 Other: Weight 119.295 kg Results 05/30/19 03:00 05/30/19 03:00 Cardiac Enzymes 05/30/19 05/30/19 05/30/19 Range/Units 03:00 03:00 08:38 AST 61 H (17-59) U/L Troponin I <0.012 0.134 H* (0.000-0.034) ng/mL Coagulation 05/30/19 Range/Units 03:00 PT 10.5 (9.0-12.0) sec APTT 23.4 (22.0-30.0) sec CBC 05/30/19 Range/Units 03:00 WBC 8.5 (3.8-10.6) k/uL RBC 5.63 (4.30-5.90) m/uL Hgb 16.4 (13.0-17.5) gm/dL Hct 51.2 (39.0-53.0) % Plt Count 187 (150-450) k/uL Comprehensive Metabolic Panel 05/30/19 Range/Units 03:00 Sodium 131 L (137-145) mmol/L Potassium 5.2 H (3.5-5.1) mmol/L Chloride 94 L (98-107) mmol/L Carbon Dioxide 30 (22-30) mmol/L BUN 18 (9-20) mg/dL Creatinine 0.92 (0.66-1.25) mg/dL Glucose 140 H (74-99) mg/dL Calcium 9.0 (8.4-10.2) mg/dL AST 61 H (17-59) U/L ALT 46 (4-49) U/L Alkaline Phosphatase 66 (38-126) U/L Total Protein 7.4 (6.3-8.2) g/dL Albumin 4.3 (3.5-5.0) g/dL Current Medications Generic Name Dose Route Start Last Admin Trade Name Ayoq PRN Reason Stop Dose Admin Aspirin 325 mg 05/31/19 09:00 05/30/19 09:09 Aspirin PO 325 mg DAILY CHUY Administration Intake and Output 05/29/19 05/30/19 05/30/19 22:59 06:59 14:59 Other: Weight 119.295 kg 05/30/19 03:00 05/30/19 03:00
[2019-05-30] MEDS ORDERED: HEPARIN SODIUM,PORCINE 5,000 UNIT/ML 1 ML VIAL IV ONE (11:15)
[2019-05-30] MEDS: METOPROLOL SUCCINATE (ER) 100 MG TAB.ER.24H PO SCH (12:09)
[2019-05-30] MEDS: HEPARIN SOD,PORK IN 0.45% NACL 25,000 UNIT in 0.45% NACL 1 250ML.BAG IV SCH (12:11)
[2019-05-30] MEDS: CLOPIDOGREL 75 MG TAB PO SCH (12:13)
[2019-05-30] MEDS ORDERED: NITROGLYCERIN SL TABS 0.4 MG TAB SUBLINGUAL PRN (13:44)
--- NOTE | 2019-05-30 13:46 | P.HPIM ---
History of Present Illness This is a pleasant 58 years old male with past medical history of coronary artery disease status post stent placement, heart failure, COPD, GERD, hyperlipidemia, hypertension, pulmonary embolism on Xarelto, prostate cancer status post surgery, peripheral diabetic neuropathy, obstructive sleep apnea on BiPAP, chronic hypoxic respiratory failure and 2-2.5 L/m. He was in the hospital about couple months ago when he got stent in his right coronary artery. This time he presents with 1 day of sharp throbbing central chest pain ass ociated with jaw thrusting and radiating to the left arm, with some dyspnea and headache. Also felt generally weak. No change in bowel habits no nausea vomiting. No weakness in limbs or numbness. He is fully awake and oriented. Vitals stable. Labs including CBC, BMP, INR, liver enzymes were unremarkable. First troponin was negative with less than 0.012, second troponin went up to 0.134. Patient has already been evaluated by outside plant technician and his been started on heparin drip. EKG showing normal sinus rhythm, chest x-ray showing no acute process. Review of Systems CONSTITUTIONAL: No fever, no malaise, no fatigue. HEENT: No recent visual problems or hearing problems. Denied any sore throat. CARDIOVASCULAR: No orthopnea, PND, no palpitations, no syncope. PULMONARY: No shortness of breath, no cough, no hemoptysis. GASTROINTESTINAL: No diarrhea, no nausea, no vomiting, no abdominal pain. Normoactive bowel sounds. NEUROLOGICAL: No headaches, no weakness, no numbness. HEMATOLOGICAL: Denies any bleeding or petechiae. GENITOURINARY: Denies any burning micturition, frequency, or urgency. MUSCULOSKELETAL/RHEUMATOLOGICAL: Denies any joint pain, swelling, or any muscle pain. ENDOCRINE: Denies any polyuria or polydipsia. Past Medical History Past Medical History: Asthma, Coronary Artery Disease (CAD), Cancer, Heart Failure, COPD, GERD/Reflux, Hyperlipidemia, Hypertension, Myocardial Infarction ([place]), Pneumonia, Prostate Disorder, Pulmonary Embolus (PE) Additional Past Medical History / Comment(s): Chronic CHF, bronchitis, L lung PE, prostate cancer with surgery, IDDM type II with peripheral neuropathy biltateral arms/hands/legs and feet, R leg ORIF with post op life support/wound dehiscence-debridements/skin grafting-now healed, bilateral lower extremity edema at times, SAMIR-does not use CPap d/t no way to clean it, home oxygen which pt states he is to wear 2-2.5L/NC ATC, past coccyx fracture, sinus infections. Last Myocardial Infarction Date:: 2014 History of Any Multi-Drug Resistant Organisms: VRE Date of last positivie culture/infection: 09/2017 MDRO Source:: right leg Past Surgical History: Heart Catheterization, Heart Catheterization With Stent, Orthopedic Surgery, Prostate Surgery Additional Past Surgical History / Comment(s): R leg trauma/ORIF, dehiscence R leg/debridements/wound vac/skin grafting, prostatectomy. Past Anesthesia/Blood Transfusion Reactions: Previous Problems w/ Anesthesia Additional Past Anesthesia/Blood Transfusion Reaction / Comment(s): states post op for orif of leg at [facility], was on life support, also states unable to lay flat related to COPD Date of Last Stent Placement:: 2014 Past Psychological History: Anxiety, Depression Smoking Status: Current every day smoker Past Alcohol Use History: None Reported Past Drug Use History: None Reported - Past Family History Mother Family Medical History: COPD, Vascular Disorder Additional Family Medical History / Comment(s): Mother is . She had AAA. Father Family Medical History: Cancer Additional Family Medical History / Comment(s): : lung ca with brain mets. Medications and Allergies Home Medications Medication Instructions Recorded Confirmed Type Albuterol Inhaler [Ventolin Hfa 2 puff INHALATION RT-QID PRN 07/04/14 05/30/19 History Inhaler] Budesonide/Formoterol Fumarate 2 puff INHALATION RT-BID 02/10/15 05/30/19 History [Symbicort 160-4.5 Mcg Inhaler] Nitroglycerin Sl Tabs [Nitrostat] 0.4 mg SUBLINGUAL Q5M PRN 02/10/15 05/30/19 History Omeprazole [PriLOSEC] 20 mg PO AC-BID 02/10/15 05/30/19 History Gemfibrozil [Lopid] 600 mg PO AC-BID 07/03/17 05/30/19 History Cholecalciferol [Vitamin D3 (25 1,000 unit PO DAILY 03/02/19 05/30/19 History Mcg = 1000 Iu)] Cyanocobalamin (Vitamin B-12) 1,000 mcg PO DAILY 03/02/19 05/30/19 History [Vitamin B-12] Loratadine 10 mg PO DAILY 03/02/19 05/30/19 History Tiotropium 18 Mcg/Puff [Spiriva] 1 cap INHALATION RT-DAILY 03/02/19 05/30/19 History Aspirin EC [Ecotrin Low Dose] 81 mg PO DAILY #30 tab 03/04/19 05/30/19 Rx Clopidogrel [Plavix] 75 mg PO DAILY #30 tablet 03/04/19 05/30/19 Rx Furosemide [Lasix] 40 mg PO BID #60 tab 03/04/19 05/30/19 Rx Insulin Glargine,Hum.rec.anlog 70 unit SQ DAILY 05/30/19 05/30/19 History [Lantus Solostar] Rivaroxaban [Xarelto] 15 mg PO DAILY 05/30/19 05/30/19 History Allergies Allergy/AdvReac Type Severity Reaction Status Date / Time latex Allergy Itching/red Verified 05/30/19 12:50 skin pregabalin [From Lyrica] Allergy Dyspnea Verified 05/30/19 12:50 venom-honey bee Allergy Unknown Verified 05/30/19 12:50 [bee venom (honey bee)] atorvastatin AdvReac MUSCLE PAIN Verified 05/30/19 12:50 isosorbide mononitrate AdvReac HEADACHES Verified 05/30/19 12:50 [From Imdur] rosuvastatin calcium AdvReac MUSCLE PAIN Verified 05/30/19 12:50 [From Crestor] tramadol AdvReac SUICIDAL Verified 05/30/19 12:50 THOUGHTS venlafaxine AdvReac SUICIDAL Verified 05/30/19 12:50 THOUGHTS Physical Exam Vitals: Vital Signs Temp Pulse Resp BP Pulse Ox 05/30/19 12:16 98.0 F 05/30/19 12:15 90 18 123/84 92 L 05/30/19 10:44 100 18 132/86 92 L 05/30/19 07:23 90 22 157/93 92 L 05/30/19 06:41 97.9 F 94 22 132/90 90 L 05/30/19 04:11 91 18 142/72 93 L 05/30/19 02:49 98.3 F 86 22 113/83 95 Intake and Output 05/29/19 05/30/19 05/30/19 22:59 06:59 14:59 Other: Weight 119.295 kg GENERAL: The patient is alert and oriented x3, not in any acute distress. Obese. HEENT: Pupils are round and equally reacting to light. EOMI. No scleral icterus. No conjunctival pallor. Normocephalic, atraumatic. No pharyngeal erythema. No thyromegaly. CARDIOVASCULAR: S1 and S2 present. No murmurs, rubs, or gallops. PULMONARY: Chest is clear to auscultation, no wheezing or crackles. ABDOMEN: Soft, nontender, nondistended, normoactive bowel sounds. No palpable organomegaly. MUSCULOSKELETAL: No joint swelling or deformity. EXTREMITIES: No cyanosis, clubbing, or pedal edema. NEUROLOGICAL: Gross neurological examination did not reveal any focal deficits. Strength is 5/5 20. Sensation is intact. Meningeal signs are absent SKIN: No rashes. No petechiae Results CBC & Chem 7: 05/30/19 03:00 05/30/19 03:00 Labs: Abnormal Lab Results - Last 24 Hours (Table) 05/30/19 05/30/19 05/30/19 Range/Units 03:00 03:00 08:38 RDW 17.6 H (11.5-15.5) % Sodium 131 L (137-145) mmol/L Potassium 5.2 H (3.5-5.1) mmol/L Chloride 94 L (98-107) mmol/L Glucose 140 H (74-99) mg/dL AST 61 H (17-59) U/L Troponin I 0.134 H* (0.000-0.034) ng/mL Assessment and Plan Assessment: Chest pain, rule out acute coronary syndrome with elevated troponin suspicious for non-STEMI. Coronary artery disease status post stent. He was discharged from the hospital on 03/04/19 for acute coronary syndrome status post angiography and stent placement in the right coronary artery and obtuse marginal branch of the left circumflex artery Chronic heart failure Hyperlipidemia Hypertension Diabetes mellitus GERD COPD, not in acute exacerbation History of pulmonary embolism on Xarelto History of prostate cancer status post surgery Diabetic neuropathy Chronic obstructive sleep apnea on CPAP Chronic hypoxic respiratory failure and to to 2.5 L/m Plan: This is a pleasant 58 years old male who presents with chest pain. We will troponins and EKG. Cartilage consult. Continue with anticoagulation hold Xarelto. Patient was morphine for pain management. Risks alternatives are explained for him, he verbalized understanding and acceptance. Continue with Plavix at home Labs and medication were reviewed.. Continue same treatment. Continue with symptomatic treatment. Resume home medication. Monitor lytes and vitals. DVT and GI prophylaxis. Further recommendations of the clinical course of the patient DVT prophylaxis: On heparin GI Prophylaxis: Pepcid PT/OT: Pending Prognosis is guarded
[2019-05-30] MEDS: MORPHINE SULFATE 4 MG/ML SYRINGE IVP PRN (14:02)
[2019-05-30] MEDS: FUROSEMIDE 40 MG TAB PO SCH (19:34)
[2019-05-30] MEDS: HEPARIN SODIUM,PORCINE 5,000 UNIT/ML 1 ML VIAL IV PRN (19:35)
[2019-05-30] MEDS: SYMBICORT 160-4.5 MCG INHALER INHALATION SCH (19:53)
[2019-05-31] MEDS ORDERED: IPRATROPIUM-ALBUTEROL 3 ML NEB INHALATION PRN (00:18)
[2019-05-31] MEDS: HEPARIN SODIUM,PORCINE 5,000 UNIT/ML 1 ML VIAL IV PRN (03:48)
[2019-05-31] MEDS: MORPHINE SULFATE 4 MG/ML SYRINGE IVP PRN (04:09)
[2019-05-31 06:31] LABS: Glucose,Whole Blood 150 mg/dL (75-99)
[2019-05-31] MEDS: INSULIN ASPART (NovoLOG) 100 UNIT/ML VIAL SQ SCH ×4 (06:32→21:40)
[2019-05-31] MEDS: SYMBICORT 160-4.5 MCG INHALER INHALATION SCH ×3 (07:10→20:06)
[2019-05-31] MEDS: IPRATROPIUM-ALBUTEROL 3 ML NEB INHALATION PRN ×3 (07:10→20:04)
[2019-05-31] MEDS: HEPARIN SOD,PORK IN 0.45% NACL 25,000 UNIT in 0.45% NACL 1 250ML.BAG IV SCH (07:41)
[2019-05-31] MEDS ORDERED: ALBUTEROL NEBULIZED 2.5 MG/3 ML INHALATION PRN (09:06)
--- NOTE | 2019-05-31 09:07 | P.PN ---
Subjective This is a pleasant 58 years old male with past medical history of coronary artery disease status post stent placement, heart failure, COPD, GERD, hy perlipidemia, hypertension, pulmonary embolism on Xarelto, prostate cancer status post surgery, peripheral diabetic neuropathy, obstructive sleep apnea on BiPAP, chronic hypoxic respiratory failure and 2-2.5 L/m. He was in the hospital about couple months ago when he got stent in his right coronary artery. This time he presents with 1 day of sharp throbbing central chest pain associated with jaw thrusting and radiating to the left arm, with some dyspnea and headache. Also felt generally weak. No change in bowel habits no nausea vomiting. No weakness in limbs or numbness. He is fully awake and oriented. Vitals stable. Labs including CBC, BMP, INR, liver enzymes were unremarkable. First troponin was negative with less than 0.012, second troponin went up to 0.134. Patient has already been evaluated by mathematical technician and his been started on heparin drip. EKG showing normal sinus rhythm, chest x-ray showing no acute process. 05/31/2019 Patient feels much better with his chest pain subsided 20 while his left arm and neck pain is significantly improved. No dyspnea. No dizziness. No palpitation. Vitals stable. Labs from today are pending and patient remains on heparin drip. Also he is on aspirin and Plavix and cardiology following the case closely. Echocardiogram is done and result is pending. Review of systems CONSTITUTIONAL: No fever, no malaise, no fatigue. HEENT: No recent visual problems or hearing problems. Denied any sore throat. CARDIOVASCULAR: No orthopnea, PND, no palpitations, no syncope. PULMONARY: No shortness of breath, no cough, no hemoptysis. GASTROINTESTINAL: No diarrhea, no nausea, no vomiting, no abdominal pain. Normoactive bowel sounds. NEUROLOGICAL: No headaches, no weakness, no numbness. HEMATOLOGICAL: Denies any bleeding or petechiae. GENITOURINARY: Denies any burning micturition, frequency, or urgency. MUSCULOSKELETAL/RHEUMATOLOGICAL: Denies any joint pain, swelling, or any muscle pain. ENDOCRINE: Denies any polyuria or polydipsia. Active Medications Generic Name Dose Route Start Last Admin Trade Name Freq PRN Reason Stop Dose Admin Albuterol/Ipratropium 3 ml 05/31/19 00:33 05/31/19 07:10 Duoneb 0.5 Mg-3 Mg/3 Ml Soln INHALATION 3 ml RT-Q4H PRN Administration Shortness Of Breath Or Wheezing Aspirin 81 mg 05/31/19 09:00 Aspirin PO DAILY [facility] Budesonide/Formoterol Fumarate 2 puff 05/30/19 20:00 05/31/19 07:10 Symbicort 160-4.5 Mcg Inhaler INHALATION 2 puff RT-BID [facility] Administration Cholecalciferol 1,000 unit 05/31/19 09:00 Vitamin D3 (25 Mcg = 1000 Iu) PO DAILY [facility] Clopidogrel Bisulfate 75 mg 05/30/19 11:15 05/30/19 12:13 Plavix PO 75 mg DAILY [facility] Administration Cyanocobalamin 1,000 mcg 05/31/19 09:00 Vitamin B-12 PO DAILY [facility] Fenofibrate 160 mg 05/31/19 09:00 Lofibra PO DAILY [facility] Furosemide 40 mg 05/30/19 21:00 05/30/19 19:34 Lasix PO 40 mg BID [facility] Administration Heparin Sodium (Porcine) 0 unit 05/30/19 11:15 05/31/19 03:48 Heparin IV 4,000 unit PER PROTOCOL PRN Administration Low PTT Protocol Heparin Sodium/Sodium Chloride 250 mls @ 9.997 mls/hr 05/30/19 11:15 05/31/19 07:41 25,000 unit/ Sodium Chloride IV 14.37 units/kg/hr .Q24H [facility] 17.143 mls/hr Administration Protocol 8.38 UNITS/KG/HR Insulin Aspart 0 unit 05/31/19 07:30 05/31/19 06:32 Novolog SQ Not Given ACHS [facility] Protocol Insulin Detemir 70 unit 05/31/19 07:00 Levemir SQ DAILY@0700 [facility] Loratadine 10 mg 05/31/19 09:00 Claritin PO DAILY [facility] Metoprolol Succinate 100 mg 05/30/19 11:15 05/30/19 12:09 Toprol Xl PO 100 mg DAILY [facility] Administration Morphine Sulfate 4 mg 05/30/19 13:45 05/31/19 04:09 Morphine Sulfate (Inj) IVP 4 mg Q4HR PRN Administration Pain Nitroglycerin 0.4 mg 05/30/19 13:44 Nitrostat SUBLINGUAL Q5M PRN Chest Pain Objective - Vital Signs Vital signs: Vital Signs Temp 98.3 F 05/31/19 08:00 Pulse 68 05/31/19 08:00 Resp 20 05/31/19 08:00 BP 119/82 05/31/19 08:00 Pulse Ox 91 L 05/31/19 08:00 Intake & Output 05/30/19 05/31/19 05/31/19 18:59 06:59 18:59 Intake Total 184.243 65.757 Output Total 625 Balance -440.757 65.757 Weight 119.295 kg Intake: Intake, IV Titration 184.243 65.757 Amount Heparin Sod,Pork in 0.45% 184.243 65.757 NaCl 25,000 unit In 0.45 % NaCl 1 250ml.bag @ 8.38 UNITS/KG/HR 9.997 mls/hr IV .Q24H [facility] Rx#: [id number] Output: Urine 625 Other: Voiding Method Urinal # Voids 1 - Exam GENERAL: The patient is alert and oriented x3, not in any acute distress. Obese. HEENT: Pupils are round and equally reacting to light. EOMI. No scleral icterus. No conjunctival pallor. Normocephalic, atraumatic. No pharyngeal erythema. No thyromegaly. CARDIOVASCULAR: S1 and S2 present. No murmurs, rubs, or gallops. PULMONARY: Chest is clear to auscultation, no wheezing or crackles. ABDOMEN: Soft, nontender, nondistended, normoactive bowel sounds. No palpable organomegaly. MUSCULOSKELETAL: No joint swelling or deformity. EXTREMITIES: No cyanosis, clubbing, or pedal edema. NEUROLOGICAL: Gross neurological examination did not reveal any focal deficits. Strength is 5/5 20. Sensation is intact. Meningeal signs are absent SKIN: No rashes. No petechiae - Labs CBC & Chem 7: 05/30/19 03:00 05/30/19 03:00 Labs: Abnormal Lab Results - Last 24 Hours (Table) 05/30/19 05/30/19 05/31/19 Range/Units 08:38 16:17 01:38 APTT 31.3 H (22.0-30.0) sec POC Glucose (mg/dL) (75-99) mg/dL Troponin I 0.134 H* 0.148 H* (0.000-0.034) ng/mL 05/31/19 Range/Units 06:30 APTT (22.0-30.0) sec POC Glucose (mg/dL) 150 H (75-99) mg/dL Troponin I (0.000-0.034) ng/mL Assessment and Plan Assessment: Chest pain, rule out acute coronary syndrome with elevated troponin suspicious for non-STEMI. Coronary artery disease status post stent. He was discharged from the hospital on 03/04/19 for acute coronary syndrome status post angiography and stent placement in the right coronary artery and obtuse marginal branch of the left circumflex artery Chronic heart failure Hyperlipidemia Hypertension Diabetes mellitus GERD COPD, not in acute exacerbation History of pulmonary embolism on Xarelto History of prostate cancer status post surgery Diabetic neuropathy Chronic obstructive sleep apnea on CPAP Chronic hypoxic respiratory failure and to to 2.5 L/m Plan: This is a pleasant 58 years old male who presents with chest pain. We will troponins and EKG. Cartilage consult. Continue with anticoagulation hold Xarelto. Patient was morphine for pain management. Risks alternatives are explained for him, he verbalized understanding and acceptance. Continue with Plavix at home Labs and medication were reviewed.. Continue same treatment. Continue with symptomatic treatment. Resume home medication. Monitor lytes and vitals. DVT and GI prophylaxis. Further recommendations of the clinical course of the patient DVT prophylaxis: On heparin GI Prophylaxis: Pepcid PT/OT: Pending Prognosis is guarded
[2019-05-31] MEDS ORDERED: ASPIRIN 325 MG TAB PO STA (09:26)
[2019-05-31] MEDS ORDERED: ALPRAZolam 0.25 MG TAB PO PRN (09:26)
[2019-05-31] MEDS ORDERED: ALPRAZolam 0.5 MG TAB PO PRN (09:26)
[2019-05-31] MEDS ORDERED: SODIUM CHLORIDE 0.9% 1,000 ML in EMPTY BAG 1 BAG IV ONE (09:26)
[2019-05-31] MEDS ORDERED: NITROGLYCERIN SL TABS 0.4 MG TAB SUBLINGUAL PRN (09:26)
[2019-05-31] MEDS ORDERED: ATORVASTATIN 80 MG TAB PO STA (09:26)
[2019-05-31] MEDS: INSULIN DETEMIR (LEVEMIR) 100 UNIT/ML SYR SQ SCH (09:42)
[2019-05-31 09:45] LABS: Anisocytosis Slight; Basophils % (A) 0 %; Eosinophils # (A) 0.1 k/uL (0-0.7); Eosinophils % (A) 1 %; HCT 51.5 % (39.0-53.0); HGB 15.9 gm/dL (13.0-17.5); Hypochromasia Slight; Lymphocytes # (A) 2.1 k/uL (1.0-4.8); Lymphocytes % (A) 31 %; MCH 28.6 pg (25.0-35.0); MCHC 30.9 g/dL (31.0-37.0); MCV 92.5 fL (80.0-100.0); Mean Platelet Volume 7.2; Monocytes # (A) 0.5 k/uL (0-1.0); Monocytes % (A) 7 %; Neutrophils # (A) 3.8 k/uL (1.3-7.7); Neutrophils % (A) 58 %; Platelet Count 162 k/uL (150-450); RBC 5.56 m/uL (4.30-5.90); RDW 17.5 % (11.5-15.5); WBC 6.6 k/uL (3.8-10.6)
[2019-05-31] MEDS: ASPIRIN 81 MG PO SCH (09:47)
[2019-05-31] MEDS: FUROSEMIDE 40 MG TAB PO SCH ×2 (09:49→22:26)
[2019-05-31] MEDS: CLOPIDOGREL 75 MG TAB PO SCH (09:49)
[2019-05-31] MEDS: LORATADINE 10 MG TAB PO SCH (09:49)
[2019-05-31] MEDS: CHOLECALCIFEROL 1,000 UNIT TAB PO SCH (09:49)
[2019-05-31] MEDS: METOPROLOL SUCCINATE (ER) 100 MG TAB.ER.24H PO SCH (09:56)
[2019-05-31 10:02] LABS: African American GFR (CKD) >90 (>60 ml/min/1.73 sqM); Anion Gap 9 mmol/L; Blood Urea Nitrogen 22 mg/dL (9-20); Calcium 9.2 mg/dL (8.4-10.2); Carbon Dioxide 34 mmol/L (22-30); Chloride 90 mmol/L (98-107); Cholesterol 197 mg/dL (<200); Glucose 107 mg/dL (74-99); HDL Cholesterol 29 mg/dL (40-60); LDL Cholesterol,Calculated 103 mg/dL (0-99); Non-African American GFR(CKD) 89 (>60 ml/min/1.73 sqM); Potassium 4.6 mmol/L (3.5-5.1); Sodium 133 mmol/L (137-145); Triglycerides 325 mg/dL (<150)
--- NOTE | 2019-05-31 10:20 | P.PN ---
Subjective Progress Note Date: 05/31/19 This is a 58-year-old gentleman with past medical history significant for coronary artery disease and [place], he underwent stenting of the RCA that time and was also found to have moderate disease in the LAD, patient apparently had subsequent stenting also in 2014 at the [facility] in [place], most recently in March of this year patient underwent successful stenting of the distal RCA as well as successful stenting of the first obtuse marginal in March of this year. History also of pulmonary embolism, on long-term anticoagulation, hypertension, hyperlipidemia, COPD, diabetes, chronic nicotine dependence and marijuana use. Patient presents to the hospital on this occasion with symptoms of moderate to severe chest pressure and heaviness, on the left side of his chest which radiated down into his arm, and up into his face and jaw area. His EKG on presentation here showed a normal sinus rhythm with nonspecific ST-T wave changes. Chest x-ray shows mild right middle lobe scarring and subsegmental atelectasis. Blood pressure 120/80 with a heart rate in the 60s. Blood cell count 6.6, hemoglobin 15.9, platelet count 162. Sodium 133, potassium 4.6, BUN 22 and creatinine 0.9. Cholesterol 197, triglycerides 325, LDL 103, HDL 29. Initial troponin was negative, subsequent troponin 0.13, 0.1 Patient is not currently on a statin, because of ALLERGY, he apparently also has similar problems with Crestor. His Xarelto is currently on hold and the patient is on IV heparin. Patient was seen and examined in the emergency room this morning, he did have an other episode of chest pressure and heaviness through the night last night, this morning is chest pain-free. Objective - Vital Signs Vital signs: Vital Signs Temp 98.3 F 05/31/19 08:00 Pulse 68 05/31/19 08:00 Resp 20 05/31/19 08:00 BP 119/82 05/31/19 08:00 Pulse Ox 91 L 05/31/19 08:00 Intake & Output 05/30/19 05/31/19 05/31/19 18:59 06:59 18:59 Intake Total 184.243 65.757 Output Total 625 Balance -440.757 65.757 Weight 119.295 kg Intake: Intake, IV Titration 184.243 65.757 Amount Heparin Sod,Pork in 0.45% 184.243 65.757 NaCl 25,000 unit In 0.45 % NaCl 1 250ml.bag @ 8.38 UNITS/KG/HR 9.997 mls/hr IV .Q[facility]H [facility] Rx#: [id number] Output: Urine 625 Other: Voiding Method Urinal # Voids 1 - Exam GENERAL: This is a 58-year-old male in no apparent distress at the time of my examination. HEENT: Head is atraumatic, normocephalic. Pupils are equal, round. Sclerae anicteric. Conjunctivae are clear. Mucous membranes of the mouth are moist. Neck is supple. There is no jugular venous distention. No carotid bruit is heard. LUNGS: Coarse sounding at the bases, no wheezes or rales. No chest wall tenderness is noted on palpation or with deep breathing. Diminished bilaterally. HEART: Regular rate and rhythm without murmurs, rubs or gallops. S1 and S2 heard. ABDOMEN: Soft, nontender. Bowel sounds are heard. No organomegaly noted. EXTREMITIES: Bilateral lower extremity trace edema and no calf tenderness noted. VASCULAR: Radial and dorsalis pedis pulses palpated, no evidence of clubbing. NEUROLOGIC: Patient is awake, alert and oriented x3. - Labs CBC & Chem 7: 05/31/19 09:06 05/31/19 09:06 Labs: Abnormal Lab Results - Last 24 Hours (Table) 05/30/19 05/31/19 05/31/19 Range/Units 16:17 01:38 06:30 MCHC (31.0-37.0) g/dL RDW (11.5-15.5) % APTT 31.3 H (22.0-30.0) sec Sodium (137-145) mmol/L Chloride (98-107) mmol/L Carbon Dioxide (22-30) mmol/L BUN (9-20) mg/dL Glucose (74-99) mg/dL POC Glucose (mg/dL) 150 H (75-99) mg/dL Troponin I 0.148 H* (0.000-0.034) ng/mL Triglycerides (<150) mg/dL LDL Cholesterol, Calc (0-99) mg/dL HDL Cholesterol (40-60) mg/dL 05/31/19 05/31/19 05/31/19 Range/Units 09:06 09:06 09:06 MCHC 30.9 L (31.0-37.0) g/dL RDW 17.5 H (11.5-15.5) % APTT 54.7 H (22.0-30.0) sec Sodium 133 L (137-145) mmol/L Chloride 90 L (98-107) mmol/L Carbon Dioxide 34 H (22-30) mmol/L BUN 22 H (9-20) mg/dL Glucose 107 H (74-99) mg/dL POC Glucose (mg/dL) (75-99) mg/dL Troponin I (0.000-0.034) ng/mL Triglycerides 325 H (<150) mg/dL LDL Cholesterol, Calc 103 H (0-99) mg/dL HDL Cholesterol 29 L (40-60) mg/dL Assessment and Plan Plan: Assessment and plan #1 symptoms of midsternal chest pressure and heaviness with radiation to the left arm and up into the jaw, EKG shows normal sinus rhythm with no acute changes. Troponins 0.012, 0.134, 0.148. Clinical picture suggestive of non-Q wave myocardial infarction. #2 History of coronary artery disease status post multiple stent placements, most recently in March of this year patient underwent RCA and obtuse marginal stenting #3 Hypertension #4 Dyslipidemia #5Diabetes mellitus #6 COPD #7 Chronic nicotine dependence #8 history of pulmonary embolism on chronic anticoagulation #9 marijuana use Plan Xarelto is currently on hold and patient is on IV heparin which we will continue. We will also continue the baby aspirin and Plavix. Patient is not on a statin or Crestor because of muscle issues with both of them in the past, consider PCS K-9 inhibitor on discharge. Patient has been advised to undergo cardiac catheterization, the risks and the benefits were explained to the patient in detail and he is willing to proceed. This will be performed today by Dr. Camilo, further recommendations will be based on these findings and the patient's clinical course. DNP note has been reviewed, I agree with a documented findings and plan of care. Patient was seen and examined.
[2019-05-31 11:33] LABS: Glucose,Whole Blood 128 mg/dL (75-99)
--- NOTE | 2019-05-31 12:46 | ECHOF ---
Referral Reason:assess lvf MEASUREMENTS -------- HEIGHT: 160.0 cm WEIGHT: 119.3 kg BP: 130/60 RVIDd: 3.3 cm (< 3.3) IVSd: 1.3 cm (0.6 - 1.1) LVIDd: 4.4 cm (3.9 - 5.3) LVPWd: 1.8 cm (0.6 - 1.1) IVSs: 2.0 cm LVIDs: 2.9 cm LVPWs: 1.4 cm LA Diam: 3.6 cm (2.7 - 3.8) LAESV Index (A-L): 27.65 ml/m Ao Diam: 3.2 cm (2.0 - 3.7) AV Cusp: 1.6 cm (1.5 - 2.6) LA Diam: 4.2 cm (2.7 - 3.8) MV E Gen: 0.60 m/s MV DecT: 185 ms MV A Gen: 0.82 m/s MV E/A Ratio: 0.73 RAP: 5.00 mmHg RVSP: 11.28 mmHg FINDINGS -------- Sinus rhythm. This was a technically adequate study. The left ventricular size is normal. There is mild concentric left ventricular hypertrophy. Overa ll left ventricular systolic function is normal with, an EF between 55 - 60 %. The right ventricle is normal in size. Normal LA size by volume 22+/-6 ml/m2. The right atrial size is normal. The aortic valve is trileaflet, and appears structurally normal. No aortic stenosis or regurgitation. There is no evidence of aortic regurgitation. The mitral valve is normal. Mild mitral regurgitation is present. Mild tricuspid regurgitation present. Right ventricular systolic pressure is normal at < 35 mmHg. The right ventricular systolic pressure, as measured by Doppler, is 11.28mmHg. The pulmonic valve was not well visualized. There is no pulmonic regurgitation present. The aortic root size is normal. There is no pericardial effusion. CONCLUSIONS -------- 1. Sinus rhythm. 2. This was a technically adequate study. 3. The left ventricular size is normal. 4. There is mild concentric left ventricular hypertrophy. 5. Overall left ventricular systolic function is normal with, an EF between 55 - 60 %. 6. Normal LA size by volume 22+/-6 ml/m2. 7. The aortic valve is trileaflet, and appears structurally normal. No aortic stenosis or regurgitati on. 8. Mild mitral regurgitation is present. 9. Mild tricuspid regurgitation present. 10. Right ventricular systolic pressure is normal at < 35 mmHg. 11. The pulmonic valve was not well visualized. 12. There is no pericardial effusion. PRINTER OPERATOR: Sol Sexton RDCS
[2019-05-31] MEDS ORDERED: LIDOCAINE 1% INJ 10MG/ML (20 ML MDV) SQ ONE (14:05)
[2019-05-31] MEDS ORDERED: MIDAZOLAM 2 MG/2 ML VIAL IVP ONE (14:05)
[2019-05-31] MEDS ORDERED: IV FLUID CONTINUATION 250 ML IV ONE (14:15)
[2019-05-31] MEDS ORDERED: IOPAMIDOL-370 125ML BTL INJ ONE (14:23)
[2019-05-31] MEDS ORDERED: HYDROmorphone 1 MG/ML 1 ML SYRINGE IVP ONE (14:28)
[2019-05-31] MEDS ORDERED: RX INFO: IV CONTRAST WAS GIVEN 1 EACH MISC MISCELLANE PRN (14:37)
[2019-05-31 17:27] LABS: Glucose,Whole Blood 92 mg/dL (75-99)
[2019-05-31] MEDS: SODIUM CHLORIDE 0.9% 1,000 ML IV SCH (17:35)
[2019-05-31] MEDS: CYANOCOBALAMIN 500 MCG TAB PO SCH (17:35)
[2019-05-31] MEDS: FENOFIBRATE 160 MG TAB PO SCH (17:35)
[2019-05-31] MEDS: PANTOPRAZOLE 40 MG TABLET PO SCH (18:09)
[2019-05-31 20:28] LABS: Glucose,Whole Blood 114 mg/dL (75-99)
[2019-06-01 00:04] VITALS: RESP 18
[2019-06-01 06:24] LABS: Glucose,Whole Blood 110 mg/dL (75-99)
--- NOTE | 2019-06-01 06:36 | CC ---
CARDIAC CATHETERIZATION REPORT DATE OF SERVICE: May 31, 2019 PERFORMING PHYSICIAN: Bernardino Muir MD. PROCEDURE PERFORMED: Selective right and left coronary angiogram. INDICATIONS: This is a pleasant 58-year-old gentleman who sees Dr. Mariya Fernando in the office on a regular basis with known history of coronary artery disease with previous stenting of the left circumflex coronary artery as well as history of hypertension and dyslipidemia as well as obesity who presented to the emergency room complaining of chest discomfort. The patient continues to have ongoing chest discomfort. The troponin came in to be abnormal and concerning for acute coronary event. The patient was seen by Dr. Graham on the floor, who recommended proceeding with coronary angiogram. APPROACH: Right common femoral artery. COMPLICATION: None. LEVEL OF SEDATION: Moderate with sedation length of 20 minutes. PROCEDURE DESCRIPTION: After obtaining an informed consent, the patient was brought to the cardiac laborer wharf. The right common femoral artery was cannulated using micropuncture technique, the micropuncture wire passed easily then I placed a 6-Italian sheath. After that I did selective right and left coronary angiogram using JR4 and JL4 catheters. The procedure was completed without any complication. SELECTIVE CORONARY ANGIOGRAM: 1. The right coronary artery is a large caliber vessel and it is a dominant vessel. The proximal RCA appeared to have mild disease only. The mid RCA has intermediate disease only appeared to be in the range of 30% to 40%. The RCA distally appeared to be normal and bifurcates into PDA and PLV branches, both appeared to be angiographically normal. 2. The left main is angiographically normal. It bifurcates into LCX and LAD. 3. The LCX is a large caliber vessel. It is a nondominant vessel. The proximal left circumflex appeared to have intermediate lesion only, seems to be in the range of 30% to 40%. This is involving the bifurcation of the first OM branch which has an ostial lesion appeared to be in the range of 40% to 50%. The stent in OM1 appeared to be patent. The left circumflex continues after that without any high-grade stenosis. 4. The LAD: The proximal LAD appeared to have mild disease only. It gives rise into the first diagonal branch which has an ostial lesion appeared to be in the range of 50% to 60%. The mid LAD appeared to be angiographically normal and gives rise into a second diagonal branch which seems to be normal and the LAD distally appeared to be angiographically normal. CONCLUSION: 1. Intermediate triple-vessel coronary artery disease. 2. Patent stent in OM1 of the left circumflex. POSTPROCEDURE MANAGEMENT: 1. Giving the above anatomy and the absence of any high grade stenosis, I did recommend maximize medical treatment. 2. Aggressive cholesterol control. 3. Follow up with the patient. TEMI / SANJUANITAN: [id number] /
[2019-06-01] MEDS: INSULIN ASPART (NovoLOG) 100 UNIT/ML VIAL SQ SCH (06:52)
[2019-06-01] MEDS: INSULIN DETEMIR (LEVEMIR) 100 UNIT/ML SYR SQ SCH (06:52)
[2019-06-01] MEDS: PANTOPRAZOLE 40 MG TABLET PO SCH (06:53)
[2019-06-01] MEDS: SODIUM CHLORIDE 0.9% 1,000 ML IV SCH (06:53)
[2019-06-01] MEDS: IPRATROPIUM 0.5 MG/2.5 ML NEBU INHALATION SCH ×2 (07:13→11:39)
[2019-06-01] MEDS: IPRATROPIUM-ALBUTEROL 3 ML NEB INHALATION PRN (07:13)
[2019-06-01] MEDS: SYMBICORT 160-4.5 MCG INHALER INHALATION SCH (07:17)
[2019-06-01 07:32] LABS: African American GFR (CKD) >90 (>60 ml/min/1.73 sqM); Anion Gap 7 mmol/L; Blood Urea Nitrogen 21 mg/dL (9-20); Calcium 9.3 mg/dL (8.4-10.2); Carbon Dioxide 39 mmol/L (22-30); Chloride 87 mmol/L (98-107); Glucose 101 mg/dL (74-99); Non-African American GFR(CKD) 79 (>60 ml/min/1.73 sqM); Potassium 4.2 mmol/L (3.5-5.1); Sodium 133 mmol/L (137-145)
[2019-06-01 08:08] LABS: Anisocytosis Slight; Basophils % (A) 0 %; Eosinophils # (A) 0.1 k/uL (0-0.7); Eosinophils % (A) 1 %; HCT 49.1 % (39.0-53.0); HGB 15.6 gm/dL (13.0-17.5); Hypochromasia Slight; Lymphocytes # (A) 1.7 k/uL (1.0-4.8); Lymphocytes % (A) 21 %; MCH 29.8 pg (25.0-35.0); MCHC 31.9 g/dL (31.0-37.0); MCV 93.7 fL (80.0-100.0); Mean Platelet Volume 7.5; Monocytes # (A) 0.6 k/uL (0-1.0); Monocytes % (A) 8 %; Neutrophils # (A) 5.5 k/uL (1.3-7.7); Neutrophils % (A) 67 %; Platelet Count 153 k/uL (150-450); RBC 5.24 m/uL (4.30-5.90); RDW 17.3 % (11.5-15.5); WBC 8.1 k/uL (3.8-10.6)
[2019-06-01 08:25] VITALS: BP 127/74; PULSE 78; TEMP 96.4
[2019-06-01] MEDS: FUROSEMIDE 40 MG TAB PO SCH (08:29)
[2019-06-01] MEDS: CLOPIDOGREL 75 MG TAB PO SCH (08:29)
[2019-06-01] MEDS: ASPIRIN 81 MG PO SCH (08:29)
[2019-06-01] MEDS: FENOFIBRATE 160 MG TAB PO SCH (08:29)
[2019-06-01] MEDS: CYANOCOBALAMIN 500 MCG TAB PO SCH (08:29)
[2019-06-01] MEDS: LORATADINE 10 MG TAB PO SCH (08:29)
[2019-06-01] MEDS: METOPROLOL SUCCINATE (ER) 100 MG TAB.ER.24H PO SCH (08:29)
[2019-06-01] MEDS: CHOLECALCIFEROL 1,000 UNIT TAB PO SCH (08:29)
[2019-06-01] MEDS ORDERED: METOPROLOL SUCCINATE (ER) 100 MG TAB.ER.24H PO SCH (09:00)
[2019-06-01] MEDS ORDERED: LISINOPRIL 2.5 MG TAB PO SCH (09:00)
[2019-06-01 10:54] LABS: Glucose,Whole Blood 148 mg/dL (75-99)
[2019-06-01] MEDS ORDERED: RIVAROXABAN 15 MG TAB PO SCH (11:45)
--- NOTE | 2019-06-01 12:04 | P.DS ---
Providers Date of admission: 05/31/19 11:24 Attending physician: Keira Kc Consults: 05/30/19 05:07 Consult Physician Urgent Consulting Provider: [facility] Consult Reason/Comments: chest pain - history cath in Mar with stent to RCA and Circ Do you want consulting provider notified?: Yes, Notify in am Primary care physician: [facility] Course: Diagnoses: Chest pain, cardiac cath showing intermediate triple-vessel disease that's been going to be treated medically as per parer Coronary artery disease status post stent. He was discharged from the hospital on 03/04/19 for acute coronary syndrome status post angiography and stent placement in the right coronary artery and obtuse marginal branch of the left circumflex artery Chronic heart failure Hyperlipidemia Hypertension Diabetes mellitus GERD COPD, not in acute exacerbation History of pulmonary embolism on Xarelto History of prostate cancer status post surgery Diabetic neuropathy Chronic obstructive sleep apnea on CPAP Chronic hypoxic respiratory failure and to to 2.5 L/m Hospital course: This is a pleasant 58 years old male with past medical history of coronary artery disease status post stent placement, heart failure, COPD, GERD, hyperlipidemia, hypertension, pulmonary embolism on Xarelto, prostate cancer status post surgery, peripheral diabetic neuropathy, obstructive sleep apnea on BiPAP, chronic hypoxic respiratory failure and 2-2.5 L/m. He was in the hospital about couple months ago when he got stent in his right coronary artery. This time he presents with 1 day of sharp throbbing central chest pain associated with jaw thrusting and radiating to the left arm, with some dyspnea and headache. Also felt generally weak. No change in bowel habits no nausea vomiting. No weakness in limbs or numbness. He is fully awake and oriented. First troponin was negative with less than 0.012, second troponin went up to 0.134. Patient has already been evaluated by parer and his been started on heparin drip. Cardiac cath showing intermediate triple-vessel coronary artery disease, and patent stent in OM1 of the left circumflex artery. Professor Of Music recommended maximizing medical th erapy. Patient's symptoms improved significantly , Pertinent back to his baseline. He is on home oxygen and he has it at home Problems and management plan were discussed with the patient and he verbalized understanding and acceptance Patient was found stable and can be discharged home however he needs follow-up as an outpatient. Patient was instructed to follow up with PCP within one week and patient agrees. Patient agrees with the appointments and then made for him with parer and said he will follow-up Gen: patient is a AAOx3, no distress CVS: S1-S2, RRR, no murmur Lungs: B/L CTA, no wheezing Abdomen: soft, no distention, no tenderness, positive bowel sounds Extremity: no leg edema or induration Time spent more than 35 minutes Patient Condition at Discharge: Stable Plan - Discharge Summary New Discharge Prescriptions: No Action RX: Albuterol Inhaler [Ventolin Hfa Inhaler] 2 puff INHALATION RT-QID PRN PRN Reason: Shortness Of Breath RX: Omeprazole [PriLOSEC] 20 mg PO AC-BID RX: Nitroglycerin Sl Tabs [Nitrostat] 0.4 mg SUBLINGUAL Q5M PRN PRN Reason: Chest Pain RX: Budesonide/Formoterol Fumarate [Symbicort 160-4.5 Mcg Inhaler] 2 puff INHALATION RT-BID RX: Gemfibrozil [Lopid] 600 mg PO AC-BID RX: Cyanocobalamin (Vitamin B-12) [Vitamin B-12] 1,000 mcg PO DAILY RX: Loratadine 10 mg PO DAILY RX: Tiotropium 18 Mcg/Puff [Spiriva] 1 cap INHALATION RT-DAILY RX: Cholecalciferol [Vitamin D3 (25 Mcg = 1000 Iu)] 1,000 unit PO DAILY RX: Aspirin EC [Ecotrin Low Dose] 81 mg PO DAILY #30 tab RX: Furosemide [Lasix] 40 mg PO BID #60 tab Clopidogrel [Plavix] 75 mg PO DAILY #30 tablet Rivaroxaban [Xarelto] 15 mg PO DAILY Insulin Glargine,Hum.rec.anlog [Lantus Solostar] 10 unit SQ DAILY Discharge Medication List RX: Albuterol Inhaler [Ventolin Hfa Inhaler] 2 puff INHALATION RT-QID PRN 07/04/14 [History] RX: Budesonide/Formoterol Fumarate [Symbicort 160-4.5 Mcg Inhaler] 2 puff INHALATION RT-BID 02/10/15 [History] RX: Nitroglycerin Sl Tabs [Nitrostat] 0.4 mg SUBLINGUAL Q5M PRN 02/10/15 [History] RX: Omeprazole [PriLOSEC] 20 mg PO AC-BID 02/10/15 [History] RX: Gemfibrozil [Lopid] 600 mg PO AC-BID 07/03/17 [History] RX: Cholecalciferol [Vitamin D3 (25 Mcg = 1000 Iu)] 1,000 unit PO DAILY 03/02/19 [History] RX: Cyanocobalamin (Vitamin B-12) [Vitamin B-12] 1,000 mcg PO DAILY 03/02/19 [History] RX: Loratadine 10 mg PO DAILY 03/02/19 [History] RX: Tiotropium 18 Mcg/Puff [Spiriva] 1 cap INHALATION RT-DAILY 03/02/19 [History] Clopidogrel [Plavix] 75 mg PO DAILY #30 tablet 03/04/19 [Rx] RX: Aspirin EC [Ecotrin Low Dose] 81 mg PO DAILY #30 tab 03/04/19 [Rx] RX: Furosemide [Lasix] 40 mg PO BID #60 tab 03/04/19 [Rx] Insulin Glargine,Hum.rec.anlog [Lantus Solostar] 10 unit SQ DAILY 05/30/19 [History] Rivaroxaban [Xarelto] 15 mg PO DAILY 05/30/19 [History] Follow up Appointment(s)/Referral(s): Nathan Fernando MD [STAFF PHYSICIAN] - 06/10/19 4:00 pm [facility],Clinic [REFERRING] - 3 Days (Sees Amanda Crain ) Patient Instructions/Handouts: Left Heart Catheterization (DC) Activity/Diet/Wound Care/Special Instructions: CARDIAC CATH 1. Support your puncture site by applying firm, steady pressure whenever you cough, laugh, sneeze or bear down to have a bowel movement (2-day restriction). 2. Watch for any excessive bruising, active bleeding, a firm knot forming under your skin, extreme tenderness and signs of infection (redness, swelling, fever). 3. Shower daily, do not soak puncture in a tub bath, jacuzzi, pool, [place] etc. for 1 week. This is to prevent risk of infection. 4. Drink plenty of fluids the day of and day after your procedure to flush contrast dye out of your kidneys. 5. Take all medications as directed. Never stop any new medication without your physicians OK. 6. No driving for 2 days after procedure. 7. 10- pound weight lifting restriction for 1 week. 8. Low sodium/low fat diet. 9. Activity limited until follow up appointment with your parer. In case of any problems, please call [facility], Tyler Barnhart @ .
--- NOTE | 2019-06-01 14:25 | P.PN ---
Subjective Progress Note Date: 06/01/19 This is a 58-year-old gentleman with past medical history significant for coronary artery disease and prior angioplasty in the setting of [place] in 2012, he underwent stenting of the RCA that time and was also found to have moderate disease in the LAD, patient apparently had subsequent stenting also in 2014 at the [place] in [place], most recently in March of this year patient underwent successful stenting of the distal RCA as well as successful stenting of the first obtuse marginal in March of this year. History also of pulmonary embolism, on long-term anticoagulation, hypertension, hyperlipidemia, COPD, diabetes, chronic nicotine dependence and marijuana use. Patient presents to the hospital on this occasion with symptoms of moderate to severe chest pressure and heaviness, on the left side of his chest which radiated down into his arm, and up into his face and jaw area. His EKG on presentation here showed a normal sinus rhythm with nonspecific ST-T wave changes. Chest x-ray shows mild right middle lobe scarring and subsegmental atelectasis. Blood pressure 120/80 with a heart rate in the 60s. Blood cell count 6.6, hemoglobin 15.9, platelet count 162. Sodium 133, potassium 4.6, BUN 22 and creatinine 0.9. Cholesterol 197, triglycerides 325, LDL 103, HDL 29. Initial troponin was negative, subsequent troponin 0.13, 0.1 Patient is not currently on a statin, because of ALLERGY, he apparently also has similar problems with Crestor. His Xarelto is currently on hold and the patient is on IV heparin. Patient was seen and examined in the emergency room this morning, he did have an other episode of chest pressure and heaviness through the night last night, this morning is chest pain-free. 06/01/2019 Patient did undergo cardiac catheterization yesterday which revealed intermediate triple-vessel coronary artery disease with a patent stent in the OM of the circumflex. Patient was seen and examined this morning, denied any chest discomfort and his breathing was stable. Objective - Vital Signs Vital signs: Vital Signs Temp 96.4 F L 06/01/19 08:24 Pulse 78 06/01/19 08:24 Resp 18 06/01/19 08:24 BP 127/74 06/01/19 08:24 Pulse Ox 91 L 06/01/19 08:24 Intake & Output 05/31/19 06/01/19 06/01/19 18:59 06:59 18:59 Intake Total 951.199 9308 120 Output Total 1575 Balance -027.117 8166 120 Weight 117.9 kg Intake: IV 200 Intake, IV Titration 65.757 Amount Heparin Sod,Pork in 0.45% 65.757 NaCl 25,000 unit In 0.45 % NaCl 1 250ml.bag @ 8.38 UNITS/KG/HR 9.997 mls/hr IV .Q24H [facility] Rx#: [id number] Oral 360 1560 120 Output: Urine 1575 Other: Voiding Method Urinal # Voids 1 1 - Exam GENERAL: This is a 58-year-old male in no apparent distress at the time of my examination. HEENT: Head is atraumatic, normocephalic. Pupils are equal, round. Sclerae anicteric. Conjunctivae are clear. Mucous membranes of the mouth are moist. Neck is supple. There is no jugular venous distention. No carotid bruit is heard. LUNGS: Coarse sounding at the bases, no wheezes or rales. No chest wall tenderness is noted on palpation or with deep breathing. Diminished bilaterally. HEART: Regular rate and rhythm without murmurs, rubs or gallops. S1 and S2 heard. ABDOMEN: Soft, nontender. Bowel sounds are heard. No organomegaly noted. EXTREMITIES: Bilateral lower extremity trace edema and no calf tenderness noted. right groin is soft, no evidence of any hematoma. VASCULAR: Radial and dorsalis pedis pulses palpated, no evidence of clubbing. NEUROLOGIC: Patient is awake, alert and oriented x3. - Labs CBC & Chem 7: 06/01/19 05:35 06/01/19 05:35 Labs: Abnormal Lab Results - Last 24 Hours (Table) 05/31/19 06/01/19 06/01/19 Range/Units 20:26 05:35 05:35 RDW 17.3 H (11.5-15.5) % Sodium 133 L (137-145) mmol/L Chloride 87 L (98-107) mmol/L Carbon Dioxide 39 H (22-30) mmol/L BUN 21 H (9-20) mg/dL Glucose 101 H (74-99) mg/dL POC Glucose (mg/dL) 114 H (75-99) mg/dL 06/01/19 06/01/19 Range/Units 06:23 10:52 RDW (11.5-15.5) % Sodium (137-145) mmol/L Chloride (98-107) mmol/L Carbon Dioxide (22-30) mmol/L BUN (9-20) mg/dL Glucose (74-99) mg/dL POC Glucose (mg/dL) 110 H 148 H (75-99) mg/dL Assessment and Plan Plan: Assessment and plan #1 symptoms of midsternal chest pressure and heaviness with radiation to the left arm and up into the jaw, EKG shows normal sinus rhythm with no acute changes. Troponins 0.012, 0.134, 0.148. Clinical picture suggestive of non-Q wave myocardial infarction.cardiac catheterization revealed intermediate triple- vessel coronary artery disease with patent stent in the OM of the circumflex. #2 History of coronary artery disease status post multiple stent placements, most recently in March of this year patient underwent RCA and obtuse marginal stenting #3 Hypertension #4 Dyslipidemia #5Diabetes mellitus #6 COPD #7 Chronic nicotine dependence #8 history of pulmonary embolism on chronic anticoagulation #9 marijuana use Plan we will resume the patient's xarelto, patient may be able to be discharged home today from our perspective, follow-up appointment in the office with Dr. Camilo DNP note has been reviewed, I agree with a documented findings and plan of care. Patient was seen and examined.
--- NOTE | 2019-06-07 08:06 | CDI ---
Documentation Clarification Form Date: 06/07/19 From: Melita Yip Phone: If you have a question about this query, please contact Jigna Comer, Detailer [employer] at [phone] between 8am and 5pm. Admit Date: 05/31/19 Discharge Date: 06/01/19 Patient Name: Obi Matamoros Visit Number: [id number] ATTENTION: The Clinical Documentation Specialists (CDI) and [facility] Coding Staff appreciate your assistance in clarifying documentation. Please respond to the clarification below the line at the bottom and electronically sign. The CDI & [facility] Coding staff will review the response and follow-up if needed. Please note: Queries are made part of the Legal Health Record. If you have any questions, please contact the author of this message via ITS. Dear Dr. Rios Sheet, Non-STEMI is documented in the: H&P, 05/31 & 06/01 Pn's. Per DS: Chest pain, cardiac cath showing intermediate triple-vessel disease that's been doing to be treated medically as per self propelled hot mix roller operator. Patient History/Risk Factors: CAD s/p stent 03/14/19 Clinical Indicators: Presents w 1 day of sharp throbbing central chest pain associated w jaw thrusting and radiating to the left arm w some dyspnea and headache. Troponin: 0.012, 0.134, 0.148 EKG Results: normal sinus rhythm Coronary angiogram: intermediate triple-vessel CAD w patent stent in OM1. Absence of any high grade stenosis. Treatment: maximize medical treatment In order to capture the severity of condition and necessary documentation specificity, please clarify: NSTEMI Type II CO No CO CAD, specify wo or w angina and type of angina Unable to determine Other Condition, please specify NSTEMI MTDD
--- NOTE | 2019-06-07 08:15 | CDI ---
Documentation Clarification Form Date: 06/07/19 From: Melita Yip Phone: If you have a question about this query, please contact Jigna Comer, Broom Worker at [phone] between 8am and 5pm. Admit Date: 05/31/19 Discharge Date: 06/01/19 Patient Name: Obi Matamoros Visit Number: [id number] ATTENTION: The Clinical Documentation Specialists (CDI) and [facility] Coding Staff appreciate your assistance in clarifying documentation. Please respond to the clarification below the line at the bottom and electronically sign. The CDI & [facility] Coding staff will review the response and follow-up if needed. Please note: Queries are made part of the Legal Health Record. If you have any questions, please contact the author of this message via ITS. Dear Dr. Gabriel Almodovar, Chronic heart failure/CHF is documented in the H&P, 05/31 PN & DS. History/Risk Factors: CAD s/p stent 03/14/19 Clinical Indicators: Presents w 1 day of sharp throbbing central chest pain associated w jaw thrusting and radiating to the left arm w some dyspnea and headache. VS/Pulse OX: T-98.3, P-86, R-22, BP-113/83, O2-95 BNP: none Echocardiogram Results: left ventricular systolic function is normal w EF between 55-60%. Chest X Ray: Mild RML scarring or subsegmental atelectasis unchanged. Normal heart. Treatment: Lasix 40 mg po bid In your professional opinion, can you please clarify the type of CHF if known? Chronic Systolic Heart Failure Chronic Diastolic Heart Failure Chronic Systolic & Diastolic Heart Failure Unable to Determine Other, please specify i am not sure if pt has heart failure MTDD
== END 2019-06-01 12:42 | disposition home or self-care (01) | DRG 281 ==
LOC: EC 02:48 → 1SOBS 05:07 → 3SCARD 11:48 → OBSVTOIN 05-31 11:24 → 3SCARD 05-31 16:31
PROVIDERS: ADMIT Hospitalist; ATTEND Hospitalist
PROC: B2111ZZ Fluoroscopy of Multiple Coronary Arteries using Low Osmolar Contrast (ICD-10-PCS; principal; 2019-05-31 13:56)
DX: I21.4 Non-ST elevation (NSTEMI) myocardial infarction (principal); J96.11 Chronic respiratory failure with hypoxia; J98.11 Atelectasis; E11.42 Type 2 diabetes mellitus with diabetic polyneuropathy; I11.0 Hypertensive heart disease with heart failure; I50.9 Heart failure, unspecified; I25.10 Atherosclerotic heart disease of native coronary artery without angina pectoris; E87.5 Hyperkalemia; G47.33 Obstructive sleep apnea (adult) (pediatric); K21.9 Gastro-esophageal reflux disease without esophagitis; E78.5 Hyperlipidemia, unspecified; E66.01 Morbid (severe) obesity due to excess calories; Z68.36 Body mass index [BMI] 36.0-36.9, adult; J44.9 Chronic obstructive pulmonary disease, unspecified; I25.2 Old myocardial infarction; F41.9 Anxiety disorder, unspecified; M54.2 Cervicalgia; F17.210 Nicotine dependence, cigarettes, uncomplicated; Z71.6 Tobacco abuse counseling; Z79.82 Long term (current) use of aspirin; Z79.51 Long term (current) use of inhaled steroids; Z79.02 Long term (current) use of antithrombotics/antiplatelets; Z79.4 Long term (current) use of insulin; Z79.01 Long term (current) use of anticoagulants; Z79.899 Other long term (current) drug therapy; Z87.01 Personal history of pneumonia (recurrent); Z85.46 Personal history of malignant neoplasm of prostate; Z86.711 Personal history of pulmonary embolism; Z94.5 Skin transplant status; Z86.19 Personal history of other infectious and parasitic diseases; Z95.5 Presence of coronary angioplasty implant and graft; Z90.79 Acquired absence of other genital organ(s); Z87.81 Personal history of (healed) traumatic fracture; Z86.59 Personal history of other mental and behavioral disorders; Z99.89 Dependence on other enabling machines and devices; Z88.5 Allergy status to narcotic agent; Z88.8 Allergy status to other drugs, medicaments and biological substances; Z91.030 Bee allergy status; Z91.040 Latex allergy status; Z82.5 Family history of asthma and other chronic lower respiratory diseases; Z82.49 Family history of ischemic heart disease and other diseases of the circulatory system; Z80.1 Family history of malignant neoplasm of trachea, bronchus and lung; Z80.8 Family history of malignant neoplasm of other organs or systems
CPT/HCPCS: 36415; 71046; 80048; 80053; 80061; 83735; 84484; 85025; 85610; 85730; 93306; 93458; 94640; 94760; 96365; 96366; 96375; 96376; 99285

== ENCOUNTER 2019-08-28 20:06 | Observation (INO) | payer OTHER, MEDICARE ==
[2019-08-28] MEDS ORDERED: KETOROLAC 30 MG/ML 1 ML VIAL IVP STA (20:40)
--- NOTE | 2019-08-28 20:40 | ED ---
Chest Pain HPI - General Chief Complaint: Chest Pain Stated Complaint: Chest pain Time Seen by Provider: 08/28/19 20:19 Source: patient, RN notes reviewed Mode of arrival: ambulatory Limitations: no limitations - History of Present Illness Initial Comments: This is a 38-year-old male with a history of heart disease among other medical issues who states he has a chronic cough and chronic shortness of breath who states yesterday he tripped over his feet when getting out of bed and fell onto his buttock. States he started developing some left-sided shoulder pain at that time and this morning he started developing left chest pain with radiation to his left arm he also complains of 7/10 and left shoulder radiating down left arm feeling very similar to his prior cardiac events he is now has 5 stents he states. He denies any fevers chills nausea vomiting sweats no phlegm production with his cough no loss of function to his upper or lower extremities he states he did have some left-sided facial numbness and his face felt hot. MD Complaint: chest pain, other - Related Data Home Medications Medication Instructions Recorded Confirmed Albuterol Inhaler [Ventolin Hfa 2 puff INHALATION RT-QID PRN 07/04/14 05/30/19 Inhaler] Budesonide/Formoterol Fumarate 2 puff INHALATION RT-BID 02/10/15 05/30/19 [Symbicort 160-4.5 Mcg Inhaler] Nitroglycerin Sl Tabs [Nitrostat] 0.4 mg SUBLINGUAL Q5M PRN 02/10/15 05/30/19 Omeprazole [PriLOSEC] 20 mg PO AC-BID 02/10/15 05/30/19 Gemfibrozil [Lopid] 600 mg PO AC-BID 07/03/17 05/30/19 Cholecalciferol [Vitamin D3 (25 1,000 unit PO DAILY 03/02/19 05/30/19 Mcg = 1000 Iu)] Cyanocobalamin (Vitamin B-12) 1,000 mcg PO DAILY 03/02/19 05/30/19 [Vitamin B-12] Loratadine 10 mg PO DAILY 03/02/19 05/30/19 Tiotropium 18 Mcg/Puff [Spiriva] 1 cap INHALATION RT-DAILY 03/02/19 05/30/19 Insulin Glargine,Hum.rec.anlog 10 unit SQ DAILY 05/30/19 05/31/19 [Lantus Solostar] Rivaroxaban [Xarelto] 15 mg PO DAILY 05/30/19 05/30/19 Previous Rx's Medication Instructions Recorded Aspirin EC [Ecotrin Low Dose] 81 mg PO DAILY #30 tab 03/04/19 Clopidogrel [Plavix] 75 mg PO DAILY #30 tablet 03/04/19 Furosemide [Lasix] 40 mg PO BID #60 tab 03/04/19 Lisinopril [Zestril] 2.5 mg PO DAILY #30 tab 06/01/19 Metoprolol Succinate (ER) [Toprol 100 mg PO DAILY #30 tab.er.24h 06/01/19 XL] Allergies Allergy/AdvReac Type Severity Reaction Status Date / Time latex Allergy Itching/red Verified 08/28/19 20:13 skin pregabalin [From Lyrica] Allergy Dyspnea Verified 08/28/19 20:13 venom-honey bee Allergy Unknown Verified 08/28/19 20:13 [bee venom (honey bee)] atorvastatin AdvReac MUSCLE PAIN Verified 08/28/19 20:13 isosorbide mononitrate AdvReac HEADACHES Verified 08/28/19 20:13 [From Imdur] rosuvastatin calcium AdvReac MUSCLE PAIN Verified 08/28/19 20:13 [From Crestor] tramadol AdvReac SUICIDAL Verified 08/28/19 20:13 THOUGHTS venlafaxine AdvReac SUICIDAL Verified 08/28/19 20:13 THOUGHTS Review of Systems ROS Statement: Those systems with pertinent positive or pertinent negative responses have been documented in the HPI. ROS Other: All systems not noted in ROS Statement are negative. EKG Findings - EKG Results: EKG: interpreted by ERMLauren, sinus rhythm (Sinus rhythm 98. Interval 154 QRS duration 76 daily since QTC 336/428 low-voltage noted this is compared with an EKG dated 05/31/19 showing similar configuration) Past Medical History Past Medical History: Asthma, Coronary Artery Disease (CAD), Cancer, Heart Failure, COPD, GERD/Reflux, Hyperlipidemia, Hypertension, Myocardial Infarction ([place]), Pneumonia, Prostate Disorder, Pulmonary Embolus (PE) Additional Past Medical History / Comment(s): Chronic CHF, bronchitis, L lung PE, prostate cancer with surgery, IDDM type II with peripheral neuropathy biltateral arms/hands/legs and feet, R leg ORIF with post op life support/wound dehiscence-debridements/skin grafting-now healed, bilateral lower extremity edema at times, SAMIR-does not use CPap d/t no way to clean it, home oxygen which pt states he is to wear 2-2.5L/NC ATC, past coccyx fracture, sinus infections. Last Myocardial Infarction Date:: 2014 History of Any Multi-Drug Resistant Organisms: VRE Date of last positivie culture/infection: 09/2017 MDRO Source:: right leg Past Surgical History: Heart Catheterization, Heart Catheterization With Stent, Orthopedic Surgery, Prostate Surgery Additional Past Surgical History / Comment(s): R leg trauma/ORIF, dehiscence R leg/debridements/wound vac/skin grafting, prostatectomy. Past Anesthesia/Blood Transfusion Reactions: Previous Problems w/ Anesthesia Additional Past Anesthesia/Blood Transfusion Reaction / Comment(s): states post op for orif of leg at [facility], was on life support, also states unable to lay flat related to COPD Date of Last Stent Placement:: 2014 Past Psychological History: Anxiety, Depression Smoking Status: Current every day smoker Past Alcohol Use History: Occasional Past Drug Use History: Marijuana - Past Family History Mother Family Medical History: COPD, Vascular Disorder Additional Family Medical History / Comment(s): Mother is . She had AAA. Father Family Medical History: Cancer Additional Family Medical History / Comment(s): : lung ca with brain mets. General Exam - General Exam Comments Initial Comments: This is a well-developed well-nourished awake alert oriented 3 male Limitations: no limitations General appearance: alert, anxious Neck exam: Present: normal inspection, tenderness (Tennis palpation over left trapezius musculature.), full ROM Extremities exam: Present: full ROM, other (Stasis dermatitis of both lower extremities) Course Vital Signs 08/28/19 08/28/19 08/28/19 20:10 20:18 20:31 Temperature 99.0 F Pulse Rate 103 H 97 Respiratory 20 18 18 Rate Blood Pressure 112/75 118/63 O2 Sat by Pulse 90 L 92 L Oximetry 08/28/19 21:27 Temperature Pulse Rate 87 Respiratory 18 Rate Blood Pressure 132/81 O2 Sat by Pulse 96 Oximetry - Reevaluation(s) Reevaluation #1: 08/28/19 20:49 Patient did have an episode of bronchospasm just after my examination. He did require use of his inhaler proceed a bedside using inhaler does feel much improved. Chest Pain MDM - MDM I did review the imaging and report no evidence of acute findings. Patient is improved with respect to the chest pain this is not his typical presentation per his . He has had several episodes of apparent bronchospasm. After discussed with the patient's he will be admitted will be admitted to Dr. Saravia. Disposition Clinical Impression: Chest pain, COPD (chronic obstructive pulmonary disease), Bronchospasm, Sleep apnea Disposition: ADMITTED IP TO THIS HOSP Condition: Fair [facility]errals: [facility] [Primary Care Provider] - 1-2 days
[2019-08-28 21:20] LABS: ALT 45 U/L (4-49); AST 56 U/L (17-59); African American GFR (CKD) >90 (>60 ml/min/1.73 sqM); Albumin 4.2 g/dL (3.5-5.0); Alkaline Phosphatase 85 U/L (38-126); Anion Gap 7 mmol/L; Blood Urea Nitrogen 17 mg/dL (9-20); Calcium 9.4 mg/dL (8.4-10.2); Carbon Dioxide 32 mmol/L (22-30); Chloride 91 mmol/L (98-107); Creatine Kinase 338 U/L (55-170); Glucose 143 mg/dL (74-99); Non-African American GFR(CKD) >90 (>60 ml/min/1.73 sqM); Sodium 130 mmol/L (137-145); Total Bilirubin 0.6 mg/dL (0.2-1.3); Total Protein 7.2 g/dL (6.3-8.2)
[2019-08-28 21:23] LABS: RBC 5.34 m/uL (4.30-5.90); WBC 7.1 k/uL (3.8-10.6)
[2019-08-28 21:24] LABS: Anisocytosis Slight; Basophils % (A) 0 %; Eosinophils % (A) 1 %; HCT 49.1 % (39.0-53.0); HGB 15.7 gm/dL (13.0-17.5); Lymphocytes % (A) 24 %; MCH 29.5 pg (25.0-35.0); MCHC 32.1 g/dL (31.0-37.0); MCV 91.8 fL (80.0-100.0); Mean Platelet Volume 7.7; Monocytes % (A) 6 %; Neutrophils % (A) 65 %; Platelet Count 174 k/uL (150-450); RDW 17.4 % (11.5-15.5)
[2019-08-28 21:25] LABS: Eosinophils # (A) 0.1 k/uL (0-0.7); Lymphocytes # (A) 1.7 k/uL (1.0-4.8); Monocytes # (A) 0.5 k/uL (0-1.0); Neutrophils # (A) 4.6 k/uL (1.3-7.7)
[2019-08-28 21:35] LABS: Potassium 4.5 mmol/L (3.5-5.1)
[2019-08-28 21:38] LABS: Partial Thromboplastin Time 24.1 sec (22.0-30.0); Prothrombin Time 10.5 sec (9.0-12.0)
--- NOTE | 2019-08-28 21:42 | XR ---
EXAMINATION TYPE: XR chest 2V DATE OF EXAM: 08/28/2019 COMPARISON: Chest x-ray May 30, 2019. HISTORY: Chest pain. TECHNIQUE: Frontal and lateral views of the chest are obtained. FINDINGS: There is some chronic parenchymal changes bilaterally without suspicious new focal air spa ce opacity, pleural effusion, or pneumothorax seen. The cardiac silhouette size remains within jd l limits. Multilevel spurring in the thoracic spine is redemonstrated. Overlying EKG leads are presen t. IMPRESSION: Chronic changes without acute pulmonary process.
[2019-08-28] MEDS ORDERED: SODIUM CHLORIDE 0.9% 1,000 ML IV SCH (23:15)
[2019-08-28] MEDS ORDERED: NITROGLYCERIN SL TABS 0.4 MG TAB SUBLINGUAL PRN (23:15)
[2019-08-28] MEDS ORDERED: ALBUTEROL NEBULIZED 2.5 MG/3 ML INHALATION PRN (23:22)
[2019-08-29] MEDS: NITROGLYCERIN OINT 1 INCH/GM PACKET TOPICAL SCH ×2 (03:09→05:23)
[2019-08-29] MEDS ORDERED: ENOXAPARIN 120 MG/0.8 ML SYRINGE SQ STA (03:11)
[2019-08-29 06:32] LABS: Glucose,Whole Blood 124 mg/dL (75-99)
[2019-08-29] MEDS: INSULIN ASPART (NovoLOG) 100 UNIT/ML VIAL SQ SCH ×2 (06:43→12:49)
[2019-08-29] MEDS ORDERED: INSULIN DETEMIR (LEVEMIR) 100 UNIT/ML SYR SQ SCH (07:00)
[2019-08-29 07:05] VITALS: RESP 18
[2019-08-29] MEDS ORDERED: ACETAMINOPHEN TAB 325 MG TAB PO PRN (07:08)
[2019-08-29] MEDS ORDERED: PANTOPRAZOLE 40 MG TABLET PO SCH (07:30)
[2019-08-29] MEDS: IPRATROPIUM 0.5 MG/2.5 ML NEBU INHALATION SCH ×2 (07:52→11:22)
[2019-08-29] MEDS ORDERED: SYMBICORT 160-4.5 MCG INHALER INHALATION SCH (08:00)
[2019-08-29 08:52] LABS: Cholesterol 194 mg/dL (<200); HDL Cholesterol 25 mg/dL (40-60); LDL Cholesterol,Calculated 114 mg/dL (0-99); Triglycerides 273 mg/dL (<150)
[2019-08-29] MEDS ORDERED: METOPROLOL SUCCINATE (ER) 100 MG TAB.ER.24H PO SCH (09:00)
[2019-08-29] MEDS ORDERED: RIVAROXABAN 15 MG TAB PO SCH (09:00)
[2019-08-29] MEDS ORDERED: LISINOPRIL 5 MG TAB PO SCH (09:00)
[2019-08-29] MEDS ORDERED: FENOFIBRATE 160 MG TAB PO SCH (09:00)
[2019-08-29] MEDS ORDERED: LORATADINE 10 MG TAB PO SCH (09:00)
[2019-08-29] MEDS ORDERED: CYANOCOBALAMIN 500 MCG TAB PO SCH (09:00)
[2019-08-29] MEDS ORDERED: CHOLECALCIFEROL 1,000 UNIT TAB PO SCH (09:00)
[2019-08-29] MEDS ORDERED: FUROSEMIDE 40 MG TAB PO SCH (09:00)
[2019-08-29] MEDS ORDERED: CLOPIDOGREL 75 MG TAB PO SCH (09:00)
[2019-08-29 09:21] VITALS: TEMP 98.4
[2019-08-29] MEDS: ASPIRIN 325 MG TAB PO SCH ×2 (10:04→10:07)
--- NOTE | 2019-08-29 10:13 | P.HPIM ---
History of Present Illness 58-year-old male with known history of coronary disease and previous stents in the past recent cardiac catheterization in May which showed triple-vessel disease but the all of the malaise than 70% occlusions came in with compensative chest pain which started today pressure-like sensation patient did have a fall yesterday and injured his left shoulder although this pain apparently is really different pressure-like sensation radiating to the left shoulder area and left neck area denied any shortness of breath denied any ill lightheadedness denied any diaphoresis associated with that. Patient chest x-ray of did not show any pulmonary edema patient had normal ejection fraction the past patient is bit hyponatremic from Lasix. Patient does have history of for DVTs and PEs in the past for which patient is on xarelto patient is on xarelto without any heparin at this time. Patient does have degenerative neck disease with significant spurring in the cervical spine area which can cause similar symptoms to patient does have an EKG which showed some nonspecific ST-T wave changes in lead 2 troponins are minimally elevated to 0.04, first set was normal. Review of Systems REVIEW OF SYSTEMS: CONSTITUTIONAL: No fever, no malaise, no fatigue. HEENT: No recent visual problems or hearing problems. Denied any sore throat. CARDIOVASCULAR: No orthopnea, PND, no palpitations, no syncope. PULMONARY: No shortness of breath, no cough, no hemoptysis. GASTROINTESTINAL: No diarrhea, no nausea, no vomiting, no abdominal pain. NEUROLOGICAL: No headaches, no weakness, no numbness. HEMATOLOGICAL: Denies any bleeding or petechiae. GENITOURINARY: Denies any burning micturition, frequency, or urgency. MUSCULOSKELETAL/RHEUMATOLOGICAL: Denies any joint pain, swelling, or any muscle pain. ENDOCRINE: Denies any polyuria or polydipsia. The rest of the 14-point review of systems is negative. Past Medical History Past Medical History: Asthma, Coronary Artery Disease (CAD), Cancer, Heart Failure, COPD, GERD/Reflux, Hyperlipidemia, Hypertension, Myocardial Infarction ([place]), Pneumonia, Prostate Disorder, Pulmonary Embolus (PE) Additional Past Medical History / Comment(s): Chronic CHF, bronchitis, L lung PE, prostate cancer with surgery, IDDM type II with peripheral neuropathy biltateral arms/hands/legs and feet, R leg ORIF with post op life support/wound dehiscence-debridements/skin grafting-now healed, bilateral lower extremity edema at times, SAMIR-does not use CPap d/t no way to clean it, home oxygen which pt states he is to wear 2-2.5L/NC ATC, past coccyx fracture, sinus infections. Last Myocardial Infarction Date:: 2014 History of Any Multi-Drug Resistant Organisms: VRE Date of last positivie culture/infection: 09/2017 MDRO Source:: right leg Past Surgical History: Heart Catheterization, Heart Catheterization With Stent, Orthopedic Surgery, Prostate Surgery Additional Past Surgical History / Comment(s): R leg trauma/ORIF, dehiscence R leg/debridements/wound vac/skin grafting, prostatectomy. Past Anesthesia/Blood Transfusion Reactions: Previous Problems w/ Anesthesia Additional Past Anesthesia/Blood Transfusion Reaction / Comment(s): states post op for orif of leg at [facility], was on life support, also states unable to lay flat related to COPD Date of Last Stent Placement:: 2014 Past Psychological History: Anxiety, Depression Additional Psychological History / Comment(s): Pt resides alone in an apartment but states his girlfriend is there most times. He uses a cane or walker to ambulate. He does not drive much, his girlfriend drives. He has home oxygen, nebulizer, glucometer and a CPap which he doesn't use because he states he has no way to clean it. Smoking Status: Current every day smoker Past Alcohol Use History: Occasional Additional Past Alcohol Use History / Comment(s): Pt started smoking in 1971 and is a 1 ppd smoker. Past Drug Use History: Marijuana Additional Drug Use History / Comment(s): occasional use - Past Family History Mother Family Medical History: COPD, Vascular Disorder Additional Family Medical History / Comment(s): Mother is . She had AAA. Father Family Medical History: Cancer Additional Family Medical History / Comment(s): : lung ca with brain mets. Medications and Allergies Home Medications Medication Instructions Recorded Confirmed Type Albuterol Inhaler [Ventolin Hfa 2 puff INHALATION RT-QID PRN 07/04/14 05/30/19 History Inhaler] Budesonide/Formoterol Fumarate 2 puff INHALATION RT-BID 02/10/15 05/30/19 History [Symbicort 160-4.5 Mcg Inhaler] Nitroglycerin Sl Tabs [Nitrostat] 0.4 mg SUBLINGUAL Q5M PRN 02/10/15 05/30/19 History Omeprazole [PriLOSEC] 20 mg PO AC-BID 02/10/15 05/30/19 History Gemfibrozil [Lopid] 600 mg PO AC-BID 07/03/17 05/30/19 History Cholecalciferol [Vitamin D3 (25 1,000 unit PO DAILY 03/02/19 05/30/19 History Mcg = 1000 Iu)] Cyanocobalamin (Vitamin B-12) 1,000 mcg PO DAILY 03/02/19 05/30/19 History [Vitamin B-12] Loratadine 10 mg PO DAILY 03/02/19 05/30/19 History Tiotropium 18 Mcg/Puff [Spiriva] 1 cap INHALATION RT-DAILY 03/02/19 05/30/19 History Aspirin EC [Ecotrin Low Dose] 81 mg PO DAILY #30 tab 03/04/19 05/30/19 Rx Clopidogrel [Plavix] 75 mg PO DAILY #30 tablet 03/04/19 05/30/19 Rx Furosemide [Lasix] 40 mg PO BID #60 tab 03/04/19 05/30/19 Rx Insulin Glargine,Hum.rec.anlog 10 unit SQ DAILY 05/30/19 05/31/19 History [Lantus Solostar] Rivaroxaban [Xarelto] 15 mg PO DAILY 05/30/19 05/30/19 History Lisinopril [Zestril] 2.5 mg PO DAILY #30 tab 06/01/19 Rx Metoprolol Succinate (ER) [Toprol 100 mg PO DAILY #30 tab.er.24h 06/01/19 Rx XL] Allergies Allergy/AdvReac Type Severity Reaction Status Date / Time latex Allergy Itching/red Verified 08/28/19 20:13 skin pregabalin [From Lyrica] Allergy Dyspnea Verified 08/28/19 20:13 venom-honey bee Allergy Unknown Verified 08/28/19 20:13 [bee venom (honey bee)] atorvastatin AdvReac MUSCLE PAIN Verified 08/28/19 20:13 isosorbide mononitrate AdvReac HEADACHES Verified 08/28/19 20:13 [From Imdur] rosuvastatin calcium AdvReac MUSCLE PAIN Verified 08/28/19 20:13 [From Crestor] tramadol AdvReac SUICIDAL Verified 08/28/19 20:13 THOUGHTS venlafaxine AdvReac SUICIDAL Verified 08/28/19 20:13 THOUGHTS Physical Exam Vitals: Vital Signs Temp Pulse Pulse Resp BP BP Pulse Ox 08/29/19 07:55 100 96 08/29/19 07:30 98.4 F 92 18 127/78 94 L 08/29/19 05:30 97.6 F 102 H 18 134/73 96 08/29/19 00:22 86 20 121/63 95 08/28/19 21:27 87 18 132/81 96 08/28/19 20:31 97 18 118/63 92 L 08/28/19 20:18 18 08/28/19 20:10 99.0 F 103 H 20 112/75 90 L Intake and Output 08/28/19 08/29/19 08/29/19 22:59 06:59 14:59 Other: Voiding Method Toilet # Voids 1 # Bowel Movements 1 Weight 121.109 kg 121.109 kg PHYSICAL EXAMINATION: GENERAL: The patient is drowsy and oriented x3, not in any acute distress. Well developed, well nourished. HEENT: Pupils are round and equally reacting to light. EOMI. No scleral icterus. No conjunctival pallor. Normocephalic, atraumatic. No pharyngeal erythema. No thyromegaly. CARDIOVASCULAR: S1 and S2 present. No murmurs, rubs, or gallops. PULMONARY: Chest is clear to auscultation, no wheezing or crackles. ABDOMEN: Soft, nontender, nondistended, normoactive bowel sounds. No palpable organomegaly. MUSCULOSKELETAL: No joint swelling or deformity. EXTREMITIES: No cyanosis, clubbing, or pedal edema. NEUROLOGICAL: Gross neurological examination did not reveal any focal deficits. SKIN: No rashes. Results CBC & Chem 7: 08/28/19 20:30 08/28/19 20:30 Labs: Abnormal Lab Results - Last 24 Hours (Table) 08/28/19 08/28/19 08/29/19 Range/Units 20:30 20:30 02:16 RDW 17.4 H (11.5-15.5) % Sodium 130 L (137-145) mmol/L Chloride 91 L (98-107) mmol/L Carbon Dioxide 32 H (22-30) mmol/L Glucose 143 H (74-99) mg/dL POC Glucose (mg/dL) (75-99) mg/dL Creatine Kinase 338 H (55-170) U/L Troponin I 0.040 H* (0.000-0.034) ng/mL Triglycerides (<150) mg/dL LDL Cholesterol, Calc (0-99) mg/dL HDL Cholesterol (40-60) mg/dL 08/29/19 08/29/19 08/29/19 Range/Units 06:30 08:27 08:27 RDW (11.5-15.5) % Sodium (137-145) mmol/L Chloride (98-107) mmol/L Carbon Dioxide (22-30) mmol/L Glucose (74-99) mg/dL POC Glucose (mg/dL) 124 H (75-99) mg/dL Creatine Kinase (55-170) U/L Troponin I 0.049 H* (0.000-0.034) ng/mL Triglycerides 273 H (<150) mg/dL LDL Cholesterol, Calc 114 H (0-99) mg/dL HDL Cholesterol 25 L (40-60) mg/dL Thrombosis Risk Factor Assmnt - Choose All That Apply Each Factor Represents 1 point: Age 41-60 years Thrombosis Risk Factor Assessment Total Risk Factor Score: 1 Thrombosis Risk Factor Assessment Level: Low Risk Assessment and Plan Plan: Chest pain: Cannot rule out unstable angina can't be musculoskeletal in origin cardiology will evaluate the patient further management as per cardiology. Patient will be continued on the anticoagulation. -Degenerative cervical spine disease with sports continued pain medications. -Coronary artery disease with previous stents in the past -The hyponatremia secondary to diuretics which will be held -COPD without any acute exacerbation patient can use to smoke and smoking cessation counseling was provided patient will be resumed on his home inhaler additional treatments next and hypogastric region reflux disease next and- hyperlipidemia -Hypertension -History of PE for which patient is on long-term anti-correlation which will be continued 4 type 2 diabetes mellitus with diabetic peripheral neuropathy: Continue with his home regimen monitor blood sugars.
[2019-08-29 10:23] LABS: Glucose,Whole Blood 108 mg/dL (75-99)
[2019-08-29] MEDS ORDERED: ISOSORBIDE MONONITRATE ER 60 MG TAB.ER.24H PO SCH (10:45)
[2019-08-29 11:30] LABS: Glucose,Whole Blood 183 mg/dL (75-99)
--- NOTE | 2019-08-29 11:59 | P.DS ---
Providers Date of admission: 08/28/19 23:24 Attending physician: Gemma Saravia Consults: 08/28/19 23:16 Consult Physician Urgent Consulting Provider: Bernardino Muir Consult Reason/Comments: Chest pain Do you want consulting provider notified?: Yes, Notify in am Primary care physician: [facility] Course: patient was cleared by cardiology and recommending starting him on Imdur. Please refer to my HPI for further details. Patient Condition at Discharge: Fair Plan - Discharge Summary Discharge Rx Participant: Yes New Discharge Prescriptions: New Isosorbide Mononitrate ER [Imdur] 60 mg PO BID #60 tab No Action Albuterol Inhaler [Ventolin Hfa Inhaler] 2 puff INHALATION RT-QID PRN PRN Reason: Shortness Of Breath Omeprazole [PriLOSEC] 20 mg PO AC-BID Nitroglycerin Sl Tabs [Nitrostat] 0.4 mg SUBLINGUAL Q5M PRN PRN Reason: Chest Pain Budesonide/Formoterol Fumarate [Symbicort 160-4.5 Mcg Inhaler] 2 puff INHALATION RT-BID Cyanocobalamin (Vitamin B-12) [Vitamin B-12] 1,000 mcg PO DAILY Loratadine 10 mg PO DAILY Tiotropium 18 Mcg/Puff [Spiriva] 1 cap INHALATION RT-DAILY Cholecalciferol [Vitamin D3 (25 Mcg = 1000 Iu)] 1,000 unit PO DAILY Furosemide [Lasix] 40 mg PO BID #60 tab Clopidogrel [Plavix] 75 mg PO DAILY #30 tablet Rivaroxaban [Xarelto] 15 mg PO DAILY Insulin Glargine,Hum.rec.anlog [Lantus Solostar] 10 unit SQ DAILY Metoprolol Succinate (ER) [Toprol XL] 100 mg PO DAILY #30 tab.er.24h Lisinopril [Zestril] 2.5 mg PO DAILY #30 tab Vascepa 1gm 2 gm PO DAILY Discharge Medication List Albuterol Inhaler [Ventolin Hfa Inhaler] 2 puff INHALATION RT-QID PRN 07/04/14 [History] Budesonide/Formoterol Fumarate [Symbicort 160-4.5 Mcg Inhaler] 2 puff INHALATION RT-BID 02/10/15 [History] Nitroglycerin Sl Tabs [Nitrostat] 0.4 mg SUBLINGUAL Q5M PRN 02/10/15 [History] Omeprazole [PriLOSEC] 20 mg PO AC-BID 02/10/15 [History] Cholecalciferol [Vitamin D3 (25 Mcg = 1000 Iu)] 1,000 unit PO DAILY 03/02/19 [History] Cyanocobalamin (Vitamin B-12) [Vitamin B-12] 1,000 mcg PO DAILY 03/02/19 [History] Loratadine 10 mg PO DAILY 03/02/19 [History] Tiotropium 18 Mcg/Puff [Spiriva] 1 cap INHALATION RT-DAILY 03/02/19 [History] Clopidogrel [Plavix] 75 mg PO DAILY #30 tablet 03/04/19 [Rx] Furosemide [Lasix] 40 mg PO BID #60 tab 03/04/19 [Rx] Insulin Glargine,Hum.rec.anlog [Lantus Solostar] 10 unit SQ DAILY 05/30/19 [History] Rivaroxaban [Xarelto] 15 mg PO DAILY 05/30/19 [History] Lisinopril [Zestril] 2.5 mg PO DAILY #30 tab 06/01/19 [Rx] Metoprolol Succinate (ER) [Toprol XL] 100 mg PO DAILY #30 tab.er.24h 06/01/19 [Rx] Isosorbide Mononitrate ER [Imdur] 60 mg PO BID #60 tab 08/29/19 [Rx] Vascepa 1gm 2 gm PO DAILY 08/29/19 [History] Follow up Appointment(s)/Referral(s): [facility],Clinic [Primary Care Provider] - 3 Days Discharge Disposition: HOME SELF-CARE
[2019-08-29 12:29] VITALS: BP 126/64; PULSE 83
== END 2019-08-29 14:17 | disposition home or self-care (01) ==
LOC: EC 20:06 → 1SOBS 23:24 → 3SCARD 08-29 04:54
PROVIDERS: ADMIT Internal Medicine; ATTEND Internal Medicine
DX: R07.9 Chest pain, unspecified (principal); E87.1 Hypo-osmolality and hyponatremia; M25.512 Pain in left shoulder; J98.01 Acute bronchospasm; J44.9 Chronic obstructive pulmonary disease, unspecified; I25.10 Atherosclerotic heart disease of native coronary artery without angina pectoris; Z95.5 Presence of coronary angioplasty implant and graft; T50.1X5A Adverse effect of loop [high-ceiling] diuretics, initial encounter; Z86.718 Personal history of other venous thrombosis and embolism; Z86.711 Personal history of pulmonary embolism; Z79.01 Long term (current) use of anticoagulants; M50.30 Other cervical disc degeneration, unspecified cervical region; R79.89 Other specified abnormal findings of blood chemistry; I11.0 Hypertensive heart disease with heart failure; I50.9 Heart failure, unspecified; K21.9 Gastro-esophageal reflux disease without esophagitis; E78.5 Hyperlipidemia, unspecified; I25.2 Old myocardial infarction; Z87.01 Personal history of pneumonia (recurrent); Z87.19 Personal history of other diseases of the digestive system; Z85.46 Personal history of malignant neoplasm of prostate; E11.42 Type 2 diabetes mellitus with diabetic polyneuropathy; G47.33 Obstructive sleep apnea (adult) (pediatric); Z99.81 Dependence on supplemental oxygen; Z16.24 Resistance to multiple antibiotics; M46.02 Spinal enthesopathy, cervical region; F17.210 Nicotine dependence, cigarettes, uncomplicated; Z82.5 Family history of asthma and other chronic lower respiratory diseases; Z80.1 Family history of malignant neoplasm of trachea, bronchus and lung; Z82.49 Family history of ischemic heart disease and other diseases of the circulatory system; Z80.8 Family history of malignant neoplasm of other organs or systems; Z79.899 Other long term (current) drug therapy; Z79.51 Long term (current) use of inhaled steroids; Z79.82 Long term (current) use of aspirin; Z79.02 Long term (current) use of antithrombotics/antiplatelets; Z79.4 Long term (current) use of insulin; Z88.5 Allergy status to narcotic agent; Z88.8 Allergy status to other drugs, medicaments and biological substances; Z91.030 Bee allergy status; Z91.040 Latex allergy status; W01.0XXA Fall on same level from slipping, tripping and stumbling without subsequent striking against object, initial encounter; Y93.89 Activity, other specified
CPT/HCPCS: 93005 ×3; 96374; 99285; 36415; 94640 ×2; 94760; 83880; 80061; 80053; 82550; 83690; 83735; 84484 ×2; 85025; 85610; 85730; 71046; G0378 ×3; J1885

== ENCOUNTER 2019-10-16 12:23 | Inpatient (IN) | payer OTHER, MEDICARE ==
[2019-10-16] MEDS ORDERED: ASPIRIN 81 MG PO STA (12:56)
[2019-10-16] MEDS ORDERED: NITROGLYCERIN SL TABS 0.4 MG TAB SUBLINGUAL STA ×3 (12:56)
--- NOTE | 2019-10-16 13:01 | ED ---
General Adult HPI - General Chief complaint: Chest Pain Stated complaint: chest pain Time Seen by Provider: 10/16/19 12:37 Source: patient, RN notes reviewed Mode of arrival: wheelchair Limitations: no limitations - History of Present Illness Initial comments: Patient is a pleasant 58-year-old male presenting to the emergency department with complaints of chest discomfort. Onset of symptoms was around 4 days ago. Symptoms are waxing and waning. Symptoms are much worse with exertion. Patient is only able to walk 5 or 10 feet before becoming very fatigued. Patient has associated dyspnea. Discomfort feels like burning or tightness. Discomfort is front of the chest. No nausea vomiting. No diaphoresis. Patient did have similar symptoms less than a year ago associated with heart disease and needed 3 stents. Patient does have some leg swelling however this is chronic and unchanged. No fevers. Patient took nitro at home with some improvement. Current chest discomfort is 8/10. - Related Data Home Medications Medication Instructions Recorded Confirmed Albuterol Inhaler (Mhu) [Ventolin 2 puff INHALATION RT-QID PRN 07/04/14 08/29/19 Hfa Inhaler (Mhu)] Budesonide/Formoterol Fumarate 2 puff INHALATION RT-BID 02/10/15 08/29/19 [Symbicort 160-4.5 Mcg Inhaler] Nitroglycerin Sl Tabs [Nitrostat] 0.4 mg SUBLINGUAL Q5M PRN 02/10/15 08/29/19 Omeprazole [PriLOSEC] 20 mg PO AC-BID 02/10/15 08/29/19 Cholecalciferol [Vitamin D3 (25 1,000 unit PO DAILY 03/02/19 08/29/19 Mcg = 1000 Iu)] Cyanocobalamin (Vitamin B-12) 1,000 mcg PO DAILY 03/02/19 08/29/19 [Vitamin B-12] Loratadine 10 mg PO DAILY 03/02/19 08/29/19 Tiotropium 18 Mcg/Puff [Spiriva] 1 cap INHALATION RT-DAILY 03/02/19 08/29/19 Insulin Glargine,Hum.rec.anlog 10 unit SQ DAILY 05/30/19 08/29/19 [Lantus Solostar] Rivaroxaban [Xarelto] 15 mg PO DAILY 05/30/19 08/29/19 Vascepa 1gm 2 gm PO DAILY 08/29/19 08/29/19 Previous Rx's Medication Instructions Recorded Clopidogrel [Plavix] 75 mg PO DAILY #30 tablet 03/04/19 Furosemide [Lasix] 40 mg PO BID #60 tab 03/04/19 Lisinopril [Zestril] 2.5 mg PO DAILY #30 tab 06/01/19 Metoprolol Succinate (ER) [Toprol 100 mg PO DAILY #30 tab.er.24h 06/01/19 XL] Isosorbide Mononitrate ER [Imdur] 60 mg PO BID #60 tab 08/29/19 Allergies Allergy/AdvReac Type Severity Reaction Status Date / Time latex Allergy Itching/red Verified 10/16/19 12:36 skin pregabalin [From Lyrica] Allergy Dyspnea Verified 10/16/19 12:36 venom-honey bee Allergy Unknown Verified 10/16/19 12:36 [bee venom (honey bee)] atorvastatin AdvReac MUSCLE PAIN Verified 10/16/19 12:36 isosorbide mononitrate AdvReac HEADACHES Verified 10/16/19 12:36 [From Imdur] rosuvastatin calcium AdvReac MUSCLE PAIN Verified 10/16/19 12:36 [From Crestor] tramadol AdvReac SUICIDAL Verified 10/16/19 12:36 THOUGHTS venlafaxine AdvReac SUICIDAL Verified 10/16/19 12:36 THOUGHTS Review of Systems ROS Statement: Those systems with pertinent positive or pertinent negative responses have been documented in the HPI. ROS Other: All systems not noted in ROS Statement are negative. Constitutional: Denies: fever Eyes: Denies: eye pain ENT: Denies: ear pain Respiratory: Reports: as per HPI, dyspnea Cardiovascular: Reports: chest pain Endocrine: Reports: fatigue Gastrointestinal: Denies: abdominal pain Genitourinary: Denies: dysuria Musculoskeletal: Denies: back pain Skin: Denies: rash Neurological: Denies: weakness Past Medical History Past Medical History: Asthma, Coronary Artery Disease (CAD), Cancer, Heart Failure, COPD, GERD/Reflux, Hyperlipidemia, Hypertension, Myocardial Infarction ([place]), Pneumonia, Prostate Disorder, Pulmonary Embolus (PE) Additional Past Medical History / Comment(s): Chronic CHF, bronchitis, L lung PE, prostate cancer with surgery, IDDM type II with peripheral neuropathy biltateral arms/hands/legs and feet, R leg ORIF with post op life support/wound dehiscence-debridements/skin grafting-now healed, bilateral lower extremity edema at times, SAMIR-does not use CPap d/t no way to clean it, home oxygen which pt states he is to wear 2-2.5L/NC ATC, past coccyx fracture, sinus infections. Last Myocardial Infarction Date:: 2014 History of Any Multi-Drug Resistant Organisms: VRE Date of last positivie culture/infection: 09/2017 MDRO Source:: right leg Past Surgical History: Heart Catheterization, Heart Catheterization With Stent, Orthopedic Surgery, Prostate Surgery Additional Past Surgical History / Comment(s): R leg trauma/ORIF, dehiscence R leg/debridements/wound vac/skin grafting, prostatectomy. Past Anesthesia/Blood Transfusion Reactions: Previous Problems w/ Anesthesia Additional Past Anesthesia/Blood Transfusion Reaction / Comment(s): states post op for orif of leg at [facility], was on life support, also states unable to lay flat related to COPD Date of Last Stent Placement:: 2014 Past Psychological History: Anxiety, Depression Smoking Status: Current every day smoker Past Alcohol Use History: Occasional Past Drug Use History: Marijuana - Past Family History Mother Family Medical History: COPD, Vascular Disorder Additional Family Medical History / Comment(s): Mother is . She had AAA. Father Family Medical History: Cancer Additional Family Medical History / Comment(s): : lung ca with brain mets. General Exam Limitations: no limitations General appearance: alert, in no apparent distress Head exam: Present: normocephalic Eye exam: Present: normal appearance Neck exam: Present: normal inspection Respiratory exam: Present: normal lung sounds bilaterally. Absent: chest wall tenderness Cardiovascular Exam: Present: regular rate, normal rhythm Expanded Peripheral pulses: 2+: Radial (R), Radial (L), Dorsalis Pedis (R), Dorsalis Pedis (L) GI/Abdominal exam: Present: soft. Absent: tenderness Extremities exam: Present: pedal edema (+2 bilateral). Absent: calf tenderness Neurological exam: Present: alert Psychiatric exam: Present: normal affect, normal mood Skin exam: Present: normal color Course Vital Signs 10/16/19 10/16/19 10/16/19 12:31 12:36 13:05 Temperature 98.3 F Pulse Rate 93 89 Pulse Rate [ Formal Service Waiter ] Respiratory 22 26 H 18 Rate Blood Pressure 105/68 121/67 O2 Sat by Pulse 89 L 96 Oximetry 10/16/19 10/16/19 10/16/19 13:11 13:44 13:48 Temperature Pulse Rate 88 92 Pulse Rate [ 82 Formal Service Waiter ] Respiratory 18 18 Rate Blood Pressure 119/75 103/64 O2 Sat by Pulse 95 95 Oximetry EKG Findings - EKG Comments: EKG Findings:: Normal sinus rhythm 90. OK 162. QRS 78. QT 360. QTC 440. Normal axis. Normal QRS. No acute ST change. Medical Decision Making - Medical Decision Making Patient reevaluated and near symptom-free following nitroglycerin. Patient updated on results and plan. Case was discussed in detail with Dr. Wong, who will admit covering for this. Patient. Admission orders written. Cardiology will be placed on consult, patient sees Dr. Muir. Patient will be started on heparin and Xarelto will be held at this time - Lab Data Result diagrams: 10/16/19 12:49 10/16/19 12:49 Lab Results 10/16/19 10/16/19 10/16/19 Range/Units 12:49 12:49 12:49 WBC 6.3 (3.8-10.6) k/uL RBC 5.09 (4.30-5.90) m/uL Hgb 15.1 (13.0-17.5) gm/dL Hct 48.9 (39.0-53.0) % MCV 95.9 (80.0-100.0) fL MCH 29.7 (25.0-35.0) pg MCHC 30.9 L (31.0-37.0) g/dL RDW 17.6 H (11.5-15.5) % Plt Count 153 (150-450) k/uL Neutrophils % 69 % Lymphocytes % 21 % Monocytes % 7 % Eosinophils % 1 % Basophils % 0 % Neutrophils # 4.3 (1.3-7.7) k/uL Lymphocytes # 1.3 (1.0-4.8) k/uL Monocytes # 0.4 (0-1.0) k/uL Eosinophils # 0.1 (0-0.7) k/uL Basophils # 0.0 (0-0.2) k/uL Anisocytosis Slight Macrocytosis Slight PT 11.0 (9.0-12.0) sec INR 1.1 (<1.2) APTT 28.6 (22.0-30.0) sec Sodium 130 L (137-145) mmol/L Potassium 4.2 (3.5-5.1) mmol/L Chloride 91 L (98-107) mmol/L Carbon Dioxide 29 (22-30) mmol/L Anion Gap 10 mmol/L BUN 14 (9-20) mg/dL Creatinine 0.69 (0.66-1.25) mg/dL Est GFR (CKD-EPI)AfAm >90 (>60 ml/min/1.73 sqM) Est GFR (CKD-EPI)NonAf >90 (>60 ml/min/1.73 sqM) Glucose 263 H (74-99) mg/dL Calcium 9.2 (8.4-10.2) mg/dL Magnesium 1.8 (1.6-2.3) mg/dL Total Bilirubin 0.5 (0.2-1.3) mg/dL AST 49 (17-59) U/L ALT 45 (4-49) U/L Alkaline Phosphatase 70 (38-126) U/L Troponin I (0.000-0.034) ng/mL NT-Pro-B Natriuret Pep pg/mL Total Protein 7.1 (6.3-8.2) g/dL Albumin 4.3 (3.5-5.0) g/dL 10/16/19 10/16/19 Range/Units 12:49 12:49 WBC (3.8-10.6) k/uL RBC (4.30-5.90) m/uL Hgb (13.0-17.5) gm/dL Hct (39.0-53.0) % MCV (80.0-100.0) fL MCH (25.0-35.0) pg MCHC (31.0-37.0) g/dL RDW (11.5-15.5) % Plt Count (150-450) k/uL Neutrophils % % Lymphocytes % % Monocytes % % Eosinophils % % Basophils % % Neutrophils # (1.3-7.7) k/uL Lymphocytes # (1.0-4.8) k/uL Monocytes # (0-1.0) k/uL Eosinophils # (0-0.7) k/uL Basophils # (0-0.2) k/uL Anisocytosis Macrocytosis PT (9.0-12.0) sec INR (<1.2) APTT (22.0-30.0) sec Sodium (137-145) mmol/L Potassium (3.5-5.1) mmol/L Chloride (98-107) mmol/L Carbon Dioxide (22-30) mmol/L Anion Gap mmol/L BUN (9-20) mg/dL Creatinine (0.66-1.25) mg/dL Est GFR (CKD-EPI)AfAm (>60 ml/min/1.73 sqM) Est GFR (CKD-EPI)NonAf (>60 ml/min/1.73 sqM) Glucose (74-99) mg/dL Calcium (8.4-10.2) mg/dL Magnesium (1.6-2.3) mg/dL Total Bilirubin (0.2-1.3) mg/dL AST (17-59) U/L ALT (4-49) U/L Alkaline Phosphatase (38-126) U/L Troponin I 0.094 H* (0.000-0.034) ng/mL NT-Pro-B Natriuret Pep 113 pg/mL Total Protein (6.3-8.2) g/dL Albumin (3.5-5.0) g/dL Critical Care Time Critical Care Time: Yes Total Critical Care Time: 32 Disposition Clinical Impression: ACS (acute coronary syndrome) Disposition: ADMITTED IP TO THIS [facility] Is patient prescribed a controlled substance at d/c from ED?: No Referrals: Amanda Mcneal PAC [REFERRING] - 1-2 days Decision Time: 14:02
[2019-10-16 13:18] LABS: Anisocytosis Slight; Basophils % (A) 0 %; Eosinophils # (A) 0.1 k/uL (0-0.7); Eosinophils % (A) 1 %; HCT 48.9 % (39.0-53.0); HGB 15.1 gm/dL (13.0-17.5); Lymphocytes # (A) 1.3 k/uL (1.0-4.8); Lymphocytes % (A) 21 %; MCH 29.7 pg (25.0-35.0); MCHC 30.9 g/dL (31.0-37.0); MCV 95.9 fL (80.0-100.0); Macrocytosis Slight; Mean Platelet Volume 7.4; Monocytes # (A) 0.4 k/uL (0-1.0); Monocytes % (A) 7 %; Neutrophils # (A) 4.3 k/uL (1.3-7.7); Neutrophils % (A) 69 %; Platelet Count 153 k/uL (150-450); RBC 5.09 m/uL (4.30-5.90); RDW 17.6 % (11.5-15.5); WBC 6.3 k/uL (3.8-10.6)
[2019-10-16 13:25] LABS: ALT 45 U/L (4-49); AST 49 U/L (17-59); African American GFR (CKD) >90 (>60 ml/min/1.73 sqM); Albumin 4.3 g/dL (3.5-5.0); Alkaline Phosphatase 70 U/L (38-126); Anion Gap 10 mmol/L; Blood Urea Nitrogen 14 mg/dL (9-20); Calcium 9.2 mg/dL (8.4-10.2); Carbon Dioxide 29 mmol/L (22-30); Chloride 91 mmol/L (98-107); Glucose 263 mg/dL (74-99); INR 1.1 (<1.2); Magnesium 1.8 mg/dL (1.6-2.3); Non-African American GFR(CKD) >90 (>60 ml/min/1.73 sqM); Partial Thromboplastin Time 28.6 sec (22.0-30.0); Potassium 4.2 mmol/L (3.5-5.1); Sodium 130 mmol/L (137-145); Total Bilirubin 0.5 mg/dL (0.2-1.3); Total Protein 7.1 g/dL (6.3-8.2)
[2019-10-16] MEDS ORDERED: NITROGLYCERIN SL TABS 0.4 MG TAB SUBLINGUAL PRN (14:02)
[2019-10-16] MEDS ORDERED: HEPARIN SODIUM,PORCINE 5,000 UNIT/ML 1 ML VIAL IV PRN (14:02)
[2019-10-16] MEDS ORDERED: HEPARIN SODIUM,PORCINE 5,000 UNIT/ML 1 ML VIAL IV ONE (14:02)
--- NOTE | 2019-10-16 14:12 | XR ---
EXAMINATION TYPE: XR chest 2V DATE OF EXAM: 10/16/2019 HISTORY: Chest Pain. REFERENCE: Previous study dated 08/28/2019. FINDINGS: The lungs are overinflated. The heart is not enlarged. There are chronic interstitial multani es within the lungs. There is a new area of airspace disease the left lung base. This may represent a telectasis or early infiltrate. IMPRESSION: 1. COPD. 2. CHRONIC INTERSTITIAL LUNG DISEASE. 3. ATELECTASIS VERSUS EARLY INFILTRATE, LEFT LUNG BASE.
[2019-10-16] MEDS: NITROGLYCERIN OINT 1 INCH/GM PACKET TOPICAL SCH ×2 (14:25→19:09)
[2019-10-16] MEDS: HEPARIN SOD,PORK IN 0.45% NACL 25,000 UNIT in 0.45% NACL 1 250ML.BAG IV SCH (14:26)
--- NOTE | 2019-10-16 15:57 | P.HPIM ---
History of Present Illness This is a pleasant 58 years old -[place] male with past medical history of chronic heart failure, coronary artery disease status post stent, COPD, GERD, hypertension, hyperlipidemia, pulmonary embolism, prostate cancer, type 2 diabetes mellitus with diabetic neuropathy and arms and legs, on home oxygen 2- 2.5 L via nasal cannula. 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 Camilo. Presents with chest pain felt like burning in the center radiating to the face and back 4 days duration about 7/10 in severity, for similar to his chest pain before when he had heart attacks. It with exertional dyspnea and some digital dry coughing. He still smokes about 1 pack per day, patient is counseled and he agrees to vicki siddhartha patch, no alcohol or illicit drugs other than weed Vitals are stable. Labs show an unremarkable CBC, INR. BMP showing sodium 1:30, creatinine normal 0.6, glucose is elevated 263, troponin is elevated 0.09. Chest x-ray: No acute process, COPD and atelectasis EKG showing normal sinus rhythm at 90 bpm with no significant ST-T changes On admission patient was placed on heparin drip and started on aspirin 325 mg daily Review of Systems CONSTITUTIONAL: No fever, no malaise, no fatigue. HEENT: No recent visual problems or hearing problems. Denied any sore throat. CARDIOVASCULAR: No orthopnea, PND, no palpitations, no syncope. PULMONARY: No shortness of breath, no cough, no hemoptysis. GASTROINTESTINAL: No diarrhea, no nausea, no vomiting, no abdominal pain. Normoactive bowel sounds. NEUROLOGICAL: No headaches, no weakness, no numbness. HEMATOLOGICAL: Denies any bleeding or petechiae. GENITOURINARY: Denies any burning micturition, frequency, or urgency. MUSCULOSKELETAL/RHEUMATOLOGICAL: Denies any joint pain, swelling, or any muscle pain. ENDOCRINE: Denies any polyuria or polydipsia. Past Medical History Past Medical History: Asthma, Coronary Artery Disease (CAD), Cancer, Heart Failure, COPD, GERD/Reflux, Hyperlipidemia, Hypertension, Myocardial Infarction ([place]), Pneumonia, Prostate Disorder, Pulmonary Embolus (PE) Additional Past Medical History / Comment(s): Chronic CHF, bronchitis, L lung PE, prostate cancer with surgery, IDDM type II with peripheral neuropathy bilta teral arms/hands/legs and feet, R leg ORIF with post op life support/wound dehiscence-debridements/skin grafting-now healed, bilateral lower extremity edema at times, SAMIR-does not use CPap d/t no way to clean it, home oxygen which pt states he is to wear 2-2.5L/NC ATC, past coccyx fracture, sinus infections. Last Myocardial Infarction Date:: 2014 History of Any Multi-Drug Resistant Organisms: VRE Date of last positivie culture/infection: 09/2017 MDRO Source:: right leg Past Surgical History: Heart Catheterization, Heart Catheterization With Stent, Orthopedic Surgery, Prostate Surgery Additional Past Surgical History / Comment(s): R leg trauma/ORIF, dehiscence R leg/debridements/wound vac/skin grafting, prostatectomy. Past Anesthesia/Blood Transfusion Reactions: Previous Problems w/ Anesthesia Additional Past Anesthesia/Blood Transfusion Reaction / Comment(s): states post op for orif of leg at [facility], was on life support, also states unable to lay flat related to COPD Date of Last Stent Placement:: 2014 Past Psychological History: Anxiety, Depression Smoking Status: Current every day smoker Past Alcohol Use History: Occasional Past Drug Use History: Marijuana - Past Family History Mother Family Medical History: COPD, Vascular Disorder Additional Family Medical History / Comment(s): Mother is . She had AAA. Father Family Medical History: Cancer Additional Family Medical History / Comment(s): : lung ca with brain mets. Medications and Allergies Home Medications Medication Instructions Recorded Confirmed Type Albuterol Inhaler (Mhu) [Ventolin 2 puff INHALATION RT-QID PRN 07/04/14 08/29/19 History Hfa Inhaler (Mhu)] Budesonide/Formoterol Fumarate 2 puff INHALATION RT-BID 02/10/15 08/29/19 History [Symbicort 160-4.5 Mcg Inhaler] Nitroglycerin Sl Tabs [Nitrostat] 0.4 mg SUBLINGUAL Q5M PRN 02/10/15 08/29/19 History Omeprazole [PriLOSEC] 20 mg PO AC-BID 02/10/15 08/29/19 History Cholecalciferol [Vitamin D3 (25 1,000 unit PO DAILY 03/02/19 08/29/19 History Mcg = 1000 Iu)] Cyanocobalamin (Vitamin B-12) 1,000 mcg PO DAILY 10/01/19 03/29/20 History [Vitamin B-12] Loratadine 10 mg PO DAILY 03/02/19 08/29/19 History Tiotropium 18 Mcg/Puff [Spiriva] 1 cap INHALATION RT-DAILY 03/02/19 08/29/19 History Clopidogrel [Plavix] 75 mg PO DAILY #30 tablet 03/04/19 08/29/19 Rx Furosemide [Lasix] 40 mg PO BID #60 tab 03/04/19 08/29/19 Rx Insulin Glargine,Hum.rec.anlog 10 unit SQ DAILY 05/30/19 08/29/19 History [Lantus Solostar] Rivaroxaban [Xarelto] 15 mg PO DAILY 05/30/19 08/29/19 History Lisinopril [Zestril] 2.5 mg PO DAILY #30 tab 06/01/19 08/29/19 Rx Metoprolol Succinate (ER) [Toprol 100 mg PO DAILY #30 tab.er.24h 06/01/19 08/29/19 Rx XL] Isosorbide Mononitrate ER [Imdur] 60 mg PO BID #60 tab 08/29/19 Rx Vascepa 1gm 2 gm PO DAILY 08/29/19 08/29/19 History Allergies Allergy/AdvReac Type Severity Reaction Status Date / Time latex Allergy Itching/red Verified 10/16/19 12:36 skin pregabalin [From Lyrica] Allergy Dyspnea Verified 10/16/19 12:36 venom-honey bee Allergy Unknown Verified 10/16/19 12:36 [bee venom (honey bee)] atorvastatin AdvReac MUSCLE PAIN Verified 10/16/19 12:36 isosorbide mononitrate AdvReac HEADACHES Verified 10/16/19 12:36 [From Imdur] rosuvastatin calcium AdvReac MUSCLE PAIN Verified 10/16/19 12:36 [From Crestor] tramadol AdvReac SUICIDAL Verified 10/16/19 12:36 THOUGHTS venlafaxine AdvReac SUICIDAL Verified 10/16/19 12:36 THOUGHTS Physical Exam Vitals: Vital Signs Temp Pulse Pulse Resp BP Pulse Ox 10/16/19 14:28 87 18 106/75 93 L 10/16/19 13:48 92 18 103/64 95 10/16/19 13:44 88 18 119/75 95 10/16/19 13:11 82 10/16/19 13:05 89 18 121/67 96 10/16/19 12:36 26 H 10/16/19 12:31 98.3 F 93 22 105/68 89 L Intake and Output 10/16/19 10/16/19 10/16/19 06:59 14:59 22:59 Other: # Voids 0 Weight 122.47 kg -GENERAL: The patient is alert and oriented x3, not in any acute distress. Obese HEENT: Pupils are round and equally reacting to light. EOMI. No scleral icterus. No conjunctival pallor. Normocephalic, atraumatic. No pharyngeal erythema. No thyromegaly. CARDIOVASCULAR: S1 and S2 present. No murmurs, rubs, or gallops. PULMONARY: Chest is clear to auscultation, no wheezing or crackles. ABDOMEN: Soft, nontender, nondistended, normoactive bowel sounds. No palpable organomegaly. MUSCULOSKELETAL: No joint swelling or deformity. EXTREMITIES: No cyanosis, clubbing, or pedal edema. NEUROLOGICAL: Gross neurological examination did not reveal any focal deficits. SKIN: No rashes. No petechiae Results CBC & Chem 7: 10/16/19 12:49 10/16/19 12:49 Labs: Abnormal Lab Results - Last 24 Hours (Table) 10/16/19 10/16/19 10/16/19 Range/Units 12:49 12:49 12:49 MCHC 30.9 L (31.0-37.0) g/dL RDW 17.6 H (11.5-15.5) % Sodium 130 L (137-145) mmol/L Chloride 91 L (98-107) mmol/L Glucose 263 H (74-99) mg/dL Troponin I 0.094 H* (0.000-0.034) ng/mL Assessment and Plan Assessment: Chest pain, with elevated troponin 0.09 however patient has chronically elevated troponin on 08/2019. Rule out cardiac causes Hyponatremia, mostly pseudohyponatremia with elevated sugars Nicotine dependence Substance abuse with weed Obesity with BMI of 37 type 2 diabetes mellitus with diabetic neuropathy and arms and legs, with hyperglycemia Hypertension Hyperlipidemia Chronic heart failure Chronic hypoxic respiratory failure on 2-2.5 L via nasal cannula oxygen COPD, not an active issue GERD History of pulmonary embolism, on Xarelto 15 Jacqueline daily History of prostate cancer Plan: This is a pleasant 58 years old male who presents because of chest pain. We will do cardiology consult. Serial troponins and EKG. Continue with aspirin, continue with heparin drip area to hold Xarelto while on heparin Labs and medication were reviewed.. Continue same treatment. Continue with symptomatic treatment. Resume home medication. Monitor lytes and vitals. DVT and GI prophylaxis. Further recommendations of the clinical course of the patient DVT prophylaxis: heparin GI Prophylaxis: Pepcid Prognosis is guarded
[2019-10-16] MEDS: IPRATROPIUM-ALBUTEROL 3 ML NEB INHALATION SCH ×2 (16:49→19:51)
[2019-10-16 17:05] LABS: Glucose,Whole Blood 179 mg/dL (75-99)
[2019-10-16] MEDS: NICOTINE 21MG/24HR PATCH TRANSDERM SCH (20:05)
[2019-10-16 20:20] LABS: Glucose,Whole Blood 183 mg/dL (75-99)
[2019-10-16] MEDS: ISOSORBIDE MONONITRATE ER 60 MG TAB.ER.24H PO SCH (20:58)
[2019-10-16] MEDS: FAMOTIDINE 20 MG/2 ML VIAL IV SCH (20:58)
[2019-10-16] MEDS: NITROGLYCERIN SL TABS 0.4 MG TAB SUBLINGUAL PRN (21:03)
[2019-10-17 04:12] LABS: Mean Platelet Volume 7.2; Platelet Count 135 k/uL (150-450)
[2019-10-17 04:24] LABS: African American GFR (CKD) >90 (>60 ml/min/1.73 sqM); Anion Gap 8 mmol/L; Blood Urea Nitrogen 16 mg/dL (9-20); Calcium 9.4 mg/dL (8.4-10.2); Carbon Dioxide 28 mmol/L (22-30); Chloride 93 mmol/L (98-107); Glucose 173 mg/dL (74-99); Non-African American GFR(CKD) >90 (>60 ml/min/1.73 sqM); Sodium 129 mmol/L (137-145)
[2019-10-17 04:25] LABS: Potassium 5.2 mmol/L (3.5-5.1)
[2019-10-17 04:55] LABS: Cholesterol 201 mg/dL (<200); HDL Cholesterol 27 mg/dL (40-60)
[2019-10-17 05:03] LABS: Triglycerides 635 mg/dL (<150)
[2019-10-17 06:12] LABS: Glucose,Whole Blood 158 mg/dL (75-99)
[2019-10-17] MEDS: IPRATROPIUM-ALBUTEROL 3 ML NEB INHALATION SCH ×5 (07:27→20:12)
[2019-10-17] MEDS ORDERED: ASPIRIN 325 MG TAB PO SCH (09:00)
[2019-10-17] MEDS: FAMOTIDINE 20 MG/2 ML VIAL IV SCH ×2 (09:03→20:48)
[2019-10-17] MEDS: NICOTINE 21MG/24HR PATCH TRANSDERM SCH (09:03)
[2019-10-17] MEDS: CLOPIDOGREL 75 MG TAB PO SCH (09:04)
[2019-10-17] MEDS: CYANOCOBALAMIN 500 MCG TAB PO SCH (09:04)
[2019-10-17] MEDS: CHOLECALCIFEROL 1,000 UNIT TAB PO SCH (09:04)
[2019-10-17] MEDS: LORATADINE 10 MG TAB PO SCH (09:04)
[2019-10-17] MEDS: LISINOPRIL 2.5 MG TAB PO SCH (09:04)
[2019-10-17] MEDS: ISOSORBIDE MONONITRATE ER 60 MG TAB.ER.24H PO SCH ×2 (09:04→20:48)
[2019-10-17] MEDS: HEPARIN SOD,PORK IN 0.45% NACL 25,000 UNIT in 0.45% NACL 1 250ML.BAG IV SCH (09:05)
[2019-10-17] MEDS: METOPROLOL SUCCINATE (ER) 100 MG TAB.ER.24H PO SCH (09:05)
[2019-10-17] MEDS: INSULIN DETEMIR (LEVEMIR) 100 UNIT/ML SYR SQ SCH (10:33)
[2019-10-17] MEDS ORDERED: NITROGLYCERIN SL TABS 0.4 MG TAB SUBLINGUAL PRN (10:52)
[2019-10-17] MEDS ORDERED: ALPRAZolam 0.25 MG TAB PO PRN (10:52)
[2019-10-17] MEDS ORDERED: SODIUM CHLORIDE 0.9% 1,000 ML in EMPTY BAG 1 BAG IV ONE (10:52)
--- NOTE | 2019-10-17 10:55 | P.CRDCN ---
History of Present Illness Consult date: 10/17/19 Reason for Consult (text): ACS History of present illness: History of present illness: This is a 58-year-old male patient of Dr. Muir, previously seen by Dr. VC Fernando, with past medical history of coronary artery disease with previous stenting of the left circumflex coronary artery and history of hypertension, hyperlipidemia, obesity. Patient also has history of obstructive sleep apnea but does not wear CPAP and also does not utilize home oxygen at bedtime. History of COPD, has esophageal reflux disease, pulmonary embolism, prostate cancer, diabetes mellitus type 2 with diabetic neuropathy. History of Patient under went a heart catheterization May [address] Muir that revealed intermediate triple-vessel coronary artery disease and patent stent in the OM one of the left circumflex. Recommendations at that time was to maximize medical treatment and aggressive cholesterol control. Echocardiogram at that time revealed EF of 55-60% with mild mitral regurgitation, mild tricuspid regurgitation. Patient gives history that he developed burning sensation in his face neck, left arm and chest. This was onset last evening and thought to be similar to chest pain he had with previous heart attack. Patient complains of exertional dyspnea and states he can only walk for 5 feet but this has been chronic. Patient has a dry cough. At the time of this evaluation, patient states he has a little numbness to his face. He denies having any active chest pain at the time of evaluation. EKG was a sinus rhythm with no acute ST changes. Sodium was 130, creatinine 0.6, blood sugar 2063 weeks. Troponins 0.094, 0.099, 0.095. Chest x-ray reveals COPD, chronic interstitial lung disease, atelectasis versus early infiltrate left lung base. Patient has been started on a heparin drip and continued on Imdur 60 mg twice daily, Plavix 75 mg daily and Toprol-XL 100 mg daily. Discussed option of heart catheterization with the patient. He is undecided at this time. We will plan to tentatively schedule patient for heart catheterization with Dr. Muir on Friday. Review Of Systems: Constitutional: No fever, no chills. No weakness, fatigue or lethargy. EENT: No headache. No blurred vision or double vision, no loss of vision. No loss of Hearing, no dizziness. No nasal drainage or congestion. No epistaxis. No sore throat. Lungs: No shortness of breath, cough, no sputum production. No wheezing. Cardiovascular: No chest pain, no lower extremity edema. No palpitations. No paroxysmal nocturnal dyspnea. No orthopnea. No lightheadedness or dizziness. No syncopal episodes. Abdominal: No abdominal pain. No nausea, vomiting. No diarrhea. No constipation. No bloody or tarry stools.. No loss of appetite. Genitourinary: No dysuria, increased frequency, urgency. No urinary retention. Musculoskeletal: No myalgias. No muscle weakness, no gait dysfunction, no frequent falls. No back pain. No neck pain. Integumentary: No wounds, no lesions. No rash or pruritus. No unusual bruising. Neurologic: No aphasia. No facial droop. No change in mentation. No head injury. No headache. No paralysis. No paresthesia. Psychiatric: No depression. No anxiety. No mood swings. Endocrine: No abnormal blood sugars. No weight change. No excessive sweating or thirst. No weight change. Physical examination: Gen: This is a 58-year-old obese male. Patient is resting in a chair at the bedside and noted to have distress stating he does not feel well. VS: Afebrile, heart rate 74, blood pressure 122/77, pulse ox 90% on 2 L nasal cannula. HEENT: Head is atraumatic, normocephalic. Pupils equal, round. Sclerae is anicteric. NECK: Supple. No JVD. No lymphadenopathy. No thyromegaly. LUNGS: Clear to auscultation. No wheezes or rhonchi. No intercostal retractions. HEART: Regular rate and rhythm. No murmur. ABDOMEN: Soft. Bowel sounds are present. No masses. No tenderness. EXTREMITIES: No pedal edema. No calf tenderness. NEUROLOGICAL: Patient is awake, alert and oriented x3. Cranial nerves 2 through 12 are grossly intact. Assessment: Chest pain with abnormal troponins History of coronary artery disease Hypertension Hyperlipidemia Chronic diastolic heart failure COPD History of pulmonary embolism on chronic Xarelto History of prostate cancer in Plan: Tentatively schedule for heart catheterization on Friday Reduce aspirin 81 mg daily, continue Plavix Continue heparin drip Continue Imdur 60 mg twice daily, lisinopril 2.5 mg daily Toprol-XL 100 mg daily Continue nitroglycerin sublingually as needed Further recommendations to follow based upon clinical course Thank you kindly for this consultation Nurse practitioner note has been reviewed, I agree with documented findings and plan of care. Patient was seen and examined. Past Medical History Past Medical History: Asthma, Coronary Artery Disease (CAD), Cancer, Heart Failu re, COPD, GERD/Reflux, Hyperlipidemia, Hypertension, Myocardial Infarction (NM), Pneumonia, Prostate Disorder, Pulmonary Embolus (PE) Additional Past Medical History / Comment(s): Chronic CHF, bronchitis, L lung PE, prostate cancer with surgery, IDDM type II with peripheral neuropathy biltateral arms/hands/legs and feet, R leg ORIF with post op life support/wound dehiscence-debridements/skin grafting-now healed, bilateral lower extremity edema at times, SAMIR-does not use CPap d/t no way to clean it, home oxygen which pt states he is to wear 2-2.5L/NC ATC, past coccyx fracture, sinus infections. Last Myocardial Infarction Date:: History of Any Multi-Drug Resistant Organisms: MRSA, VRE Date of last positivie culture/infection: 09/2017 MDRO Source:: right leg Past Surgical History: Heart Catheterization, Heart Catheterization With Stent, Orthopedic Surgery, Prostate Surgery Additional Past Surgical History / Comment(s): R leg trauma/ORIF, dehiscence R leg/debridements/wound vac/skin grafting, prostatectomy. Past Anesthesia/Blood Transfusion Reactions: Previous Problems w/ Anesthesia Additional Past Anesthesia/Blood Transfusion Reaction / Comment(s): states post op for orif of leg at [facility], was on life support, also states unable to lay flat related to COPD Date of Last Stent Placement:: 2018 Past Psychological History: Anxiety, Depression Additional Psychological History / Comment(s): Pt resides alone in an apartment but states his girlfriend is there most times. He uses a cane or walker to ambulate. He does not drive much, his girlfriend drives. He has home oxygen, nebulizer, glucometer and a CPap which he doesn't use because he states he has no way to clean it. Smoking Status: Current every day smoker Past Alcohol Use History: Occasional Additional Past Alcohol Use History / Comment(s): Pt started smoking in 1971 and is a 1 ppd smoker. Past Drug Use History: Marijuana Additional Drug Use History / Comment(s): occasional use - Past Family History Mother Family Medical History: COPD, Vascular Disorder Additional Family Medical History / Comment(s): Mother is . She had AAA. Father Family Medical History: Cancer Additional Family Medical History / Comment(s): : lung ca with brain mets. Medications and Allergies Home Medications Medication Instructions Recorded Confirmed Type Budesonide/Formoterol Fumarate 2 puff INHALATION RT-BID 02/10/15 10/16/19 History [Symbicort 160-4.5 Mcg Inhaler] Nitroglycerin Sl Tabs [Nitrostat] 0.4 mg SUBLINGUAL Q5M PRN 02/10/15 10/16/19 History Omeprazole [PriLOSEC] 20 mg PO AC-BID 02/10/15 10/16/19 History Cholecalciferol [Vitamin D3 (25 1,000 unit PO DAILY 03/02/19 10/16/19 History Mcg = 1000 Iu)] Cyanocobalamin (Vitamin B-12) 1,000 mcg PO DAILY 03/02/19 10/16/19 History [Vitamin B-12] Loratadine 10 mg PO DAILY 03/02/19 10/16/19 History Tiotropium 18 Mcg/Puff [Spiriva] 1 cap INHALATION RT-DAILY 03/02/19 10/16/19 History Clopidogrel [Plavix] 75 mg PO DAILY #30 tablet 03/04/19 10/16/19 Rx Furosemide [Lasix] 40 mg PO BID #60 tab 03/04/19 10/16/19 Rx Insulin Glargine,Hum.rec.anlog 10 unit SQ DAILY 05/30/19 10/16/19 History [Lantus Solostar] Rivaroxaban [Xarelto] 15 mg PO DAILY 05/30/19 10/16/19 History Lisinopril [Zestril] 2.5 mg PO DAILY #30 tab 06/01/19 10/16/19 Rx Isosorbide Mononitrate ER [Imdur] 60 mg PO BID #60 tab 08/29/19 10/16/19 Rx Vascepa 1gm 2 gm PO DAILY 08/29/19 10/16/19 History Albuterol Inhaler [Ventolin Hfa 2 puff INHALATION RT-QID PRN 10/16/19 10/16/19 History Inhaler] Metoprolol Succinate [Toprol XL] 100 mg PO DAILY 10/16/19 10/16/19 History Nicotine 21Mg/24Hr Patch [Habitrol] 1 each TRANSDERM DAILY 10/16/19 10/16/19 History Allergies Allergy/AdvReac Type Severity Reaction Status Date / Time latex Allergy Itching/red Verified 10/16/19 16:09 skin pregabalin [From Lyrica] Allergy Dyspnea Verified 10/16/19 16:09 venom-honey bee Allergy Unknown Verified 10/16/19 16:09 [bee venom (honey bee)] atorvastatin AdvReac MUSCLE PAIN Verified 10/16/19 16:09 isosorbide mononitrate AdvReac HEADACHES Verified 10/16/19 16:09 [From Imdur] prednisone AdvReac "caused Verified 10/16/19 18:08 shoulder pain" per patient rosuvastatin calcium AdvReac MUSCLE PAIN Verified 10/16/19 16:09 [From Crestor] tramadol AdvReac SUICIDAL Verified 10/16/19 16:09 THOUGHTS venlafaxine AdvReac SUICIDAL Verified 10/16/19 16:09 THOUGHTS Physical Exam Vitals: Vital Signs Temp Pulse Pulse Pulse Resp BP BP 10/17/19 07:40 76 10/17/19 07:30 74 10/17/19 03:10 98 F 88 20 122/77 10/17/19 00:16 97.8 F 76 20 128/64 10/16/19 22:03 98.0 F 86 20 133/66 10/16/19 19:59 84 10/16/19 19:51 84 10/16/19 16:58 79 10/16/19 16:50 81 10/16/19 16:00 98.2 F 84 18 119/71 10/16/19 14:28 87 18 106/75 10/16/19 13:48 92 18 103/64 10/16/19 13:44 88 18 119/75 10/16/19 13:11 82 10/16/19 13:05 89 18 121/67 10/16/19 12:36 26 H 10/16/19 12:31 98.3 F 93 22 105/68 Pulse Ox 10/17/19 07:40 10/17/19 07:30 10/17/19 03:10 90 L 10/17/19 00:16 96 10/16/19 22:03 10/16/19 19:59 10/16/19 19:51 10/16/19 16:58 10/16/19 16:50 10/16/19 16:00 92 L 10/16/19 14:28 93 L 10/16/19 13:48 95 10/16/19 13:44 95 10/16/19 13:11 10/16/19 13:05 96 10/16/19 12:36 10/16/19 12:31 89 L Intake and Output 10/16/19 10/17/19 10/17/19 22:59 06:59 14:59 Intake Total 398.833 93.252 78.548 Output Total 450 Balance 398.833 -356.748 78.548 Intake: IV 80 10 Heparin Sod,Pork in 0.45% 80 NaCl 25,000 unit In 0.45 % NaCl 1 250ml.bag @ 8.2 UNITS/KG/HR 10.043 mls/hr IV .Q24H [facility] Rx#: [id number] Invasive Line 2 10 Intake, IV Titration 78.833 93.252 68.548 Amount Heparin Sod,Pork in 0.45% 78.833 93.252 68.548 NaCl 25,000 unit In 0.45 % NaCl 1 250ml.bag @ 8.2 UNITS/KG/HR 10.043 mls/hr IV .Q24H [facility] Rx#: [id number] Oral 240 Output: Urine 450 Other: Voiding Method Toilet # Voids 1 1 # Bowel Movements 1 Weight 122.47 kg 124.2 kg Results 10/17/19 03:57 10/17/19 03:57 Cardiac Enzymes 10/16/19 10/16/19 10/16/19 Range/Units 12:49 12:49 19:36 AST 49 (17-59) U/L Troponin I 0.094 H* 0.099 H* (0.000-0.034) ng/mL 10/17/19 Range/Units 01:35 AST (17-59) U/L Troponin I 0.095 H* (0.000-0.034) ng/mL Coagulation 10/16/19 10/16/19 10/17/19 Range/Units 12:49 19:36 03:57 PT 11.0 (9.0-12.0) sec APTT 28.6 27.4 31.7 H (22.0-30.0) sec Lipids 10/17/19 Range/Units 03:57 Triglycerides 635 H (<150) mg/dL Cholesterol 201 H (<200) mg/dL HDL Cholesterol 27 L (40-60) mg/dL CBC 10/16/19 10/17/19 Range/Units 12:49 03:57 WBC 6.3 (3.8-10.6) k/uL RBC 5.09 (4.30-5.90) m/uL Hgb 15.1 (13.0-17.5) gm/dL Hct 48.9 (39.0-53.0) % Plt Count 153 135 L (150-450) k/uL Comprehensive Metabolic Panel 10/16/19 10/17/19 Range/Units 12:49 03:57 Sodium 130 L 129 L (137-145) mmol/L Potassium 4.2 5.2 H (3.5-5.1) mmol/L Chloride 91 L 93 L (98-107) mmol/L Carbon Dioxide 29 28 (22-30) mmol/L BUN 14 16 (9-20) mg/dL Creatinine 0.69 0.71 (0.66-1.25) mg/dL Glucose 263 H 173 H (74-99) mg/dL Calcium 9.2 9.4 (8.4-10.2) mg/dL AST 49 (17-59) U/L ALT 45 (4-49) U/L Alkaline Phosphatase 70 (38-126) U/L Total Protein 7.1 (6.3-8.2) g/dL Albumin 4.3 (3.5-5.0) g/dL Current Medications Generic Name Dose Route Start Last Admin Trade Name Freq PRN Reason Stop Dose Admin Albuterol/Ipratropium 3 ml 10/16/19 16:40 10/17/19 07:27 Duoneb 0.5 Mg-3 Mg/3 Ml Soln INHALATION 3 ml RT-QID CHUY Administration Aspirin 325 mg 10/17/19 09:00 10/17/19 09:04 Aspirin PO 325 mg DAILY CHUY Administration Cholecalciferol 1,000 unit 10/17/19 09:00 10/17/19 09:04 Vitamin D3 (25 Mcg = 1000 Iu) PO 1,000 unit DAILY CHUY Administration Clopidogrel Bisulfate 75 mg 10/17/19 09:00 10/17/19 09:04 Plavix PO 75 mg DAILY CHUY Administration Cyanocobalamin 1,000 mcg 10/17/19 09:00 10/17/19 09:04 Vitamin B-12 PO 1,000 mcg DAILY CHUY Administration Famotidine 20 mg 10/16/19 21:00 10/17/19 09:03 Pepcid IV 20 mg Q12HR CHUY Administration Heparin Sodium (Porcine) 0 unit 10/16/19 14:02 10/16/19 22:24 Heparin IV 4,000 unit Q6HR PRN Administration Low PTT Protocol Heparin Sodium/Sodium Chloride 250 mls @ 10.043 mls/hr 10/16/19 14:15 09:05 25,000 unit/ Sodium Chloride IV 14.17 units/kg/hr .Q24H CHUY 17.354 mls/hr Administration Protocol 8.2 UNITS/KG/HR Insulin Detemir 10 unit 10/17/19 09:00 10/17/19 10:33 Levemir SQ 10 unit DAILY CHUY Administration Isosorbide Mononitrate 60 mg 10/16/19 21:00 10/17/19 09:04 Imdur PO 60 mg BID CHUY Administration Lisinopril 2.5 mg 10/17/19 09:00 10/17/19 09:04 Zestril PO 2.5 mg DAILY CHUY Administration Loratadine 10 mg 10/17/19 09:00 10/17/19 09:04 Claritin PO 10 mg DAILY CHUY Administration Metoprolol Succinate 100 mg 10/17/19 09:00 10/17/19 09:05 Toprol Xl PO 100 mg DAILY CHUY Administration Nicotine 1 patch 10/16/19 16:45 10/17/19 09:03 Habitrol 21mg/24hr Patch TRANSDERM 1 patch DAILY CHUY Administration Nitroglycerin 0.4 mg 10/16/19 20:24 10/16/19 21:03 Nitrostat SUBLINGUAL 0.4 mg Q5M PRN Administration Chest Pain Intake and Output 10/16/19 10/17/19 10/17/19 22:59 06:59 14:59 Intake Total 398.833 93.252 78.548 Output Total 450 Balance 398.833 -356.748 78.548 Intake: IV 80 10 Heparin Sod,Pork in 0.45% 80 NaCl 25,000 unit In 0.45 % NaCl 1 250ml.bag @ 8.2 UNITS/KG/HR 10.043 mls/hr IV .Q24H [facility] Rx#: [id number] Invasive Line 2 10 Intake, IV Titration 78.833 93.252 68.548 Amount Heparin Sod,Pork in 0.45% 78.833 93.252 68.548 NaCl 25,000 unit In 0.45 % NaCl 1 250ml.bag @ 8.2 UNITS/KG/HR 10.043 mls/hr IV .Q24H [facility] Rx#: [id number] Oral 240 Output: Urine 450 Other: Voiding Method Toilet # Voids 1 1 # Bowel Movements 1 Weight 122.47 kg 124.2 kg 10/17/19 03:57 10/17/19 03:57
[2019-10-17 11:42] LABS: Glucose,Whole Blood 245 mg/dL (75-99)
--- NOTE | 2019-10-17 13:30 | P.PN ---
Subjective This is a pleasant 58 years old -Citizen Of [place] male with past medical history of chronic heart failure, coronary artery disease status post stent, COPD, GERD, hypertension, hyperlipidemia, pulmonary embolism, prostate cancer, type 2 diabetes mellitus with diabetic neuropathy and arms and legs, on home oxygen 2- 2.5 L via nasal cannula. His PCP is kymberly jackman and his sock boarder is Dr. Camilo. Presents with chest pain felt like burning in the center radiating to the face and back 4 days duration about 7/10 in severity, for similar to his chest pain before when he had heart attacks. It with exertional dyspnea and some digital dry coughing. He still smokes about 1 pack per day, patient is counseled and he agrees to nicotine patch, no alcohol or illicit drugs other than weed Vitals are stable. Labs show an unremarkable CBC, INR. BMP showing sodium 1:30, creatinine normal 0.6, glucose is elevated 263, troponin is elevated 0.09. Chest x-ray: No acute process, COPD and atelectasis EKG showing normal sinus rhythm at 90 bpm with no significant ST-T changes On admission patient was placed on heparin drip and started on aspirin 325 mg daily 10/17/2019 Patient is still complaining of from exertional dyspnea but no chest pain, I s till have coughing with little phlegm Hemodynamically stable. showing sodium of 129, slightly worse than yesterday 130, potassium 5.2, glucose 245, Distal on heparin drip and Xarelto is on hold, Is also on aspirin or Plavix With the patient on fluid restriction 1500 ml/day Cardiology clinic for cardiac cath tomorrow Review of Systems CONSTITUTIONAL: No fever, no malaise, no fatigue. HEENT: No recent visual problems or hearing problems. Denied any sore throat. CARDIOVASCULAR: No orthopnea, PND, no palpitations, no syncope. PULMONARY: No shortness of breath, no cough, no hemoptysis. GASTROINTESTINAL: No diarrhea, no nausea, no vomiting, no abdominal pain. Normoactive bowel sounds. NEUROLOGICAL: No headaches, no weakness, no numbness. HEMATOLOGICAL: Denies any bleeding or petechiae. GENITOURINARY: Denies any burning micturition, frequency, or urgency. MUSCULOSKELETAL/RHEUMATOLOGICAL: Denies any joint pain, swelling, or any muscle pain. ENDOCRINE: Denies any polyuria or polydipsia. Active Medications Generic Name Dose Route Start Last Admin Trade Name Freq PRN Reason Stop Dose Admin Albuterol/Ipratropium 3 ml 10/16/19 16:40 10/17/19 11:29 Duoneb 0.5 Mg-3 Mg/3 Ml Soln INHALATION 3 ml RT-QID CHUY Administration Alprazolam 0.25 mg 10/17/19 10:52 Xanax PO Q6HR PRN Mild Anxiety Alprazolam 0.5 mg 10/17/19 10:52 Xanax PO Q6HR PRN Moderate Anxiety Aspirin 81 mg 10/18/19 09:00 Aspirin PO DAILY CHUY Aspirin 325 mg 10/18/19 06:00 Aspirin PO 10/18/19 06:01 ONCE ONE Atorvastatin Calcium 80 mg 10/18/19 06:00 Lipitor PO 10/18/19 06:01 ONCE ONE Cholecalciferol 1,000 unit 10/17/19 09:00 10/17/19 09:04 Vitamin D3 (25 Mcg = 1000 Iu) PO 1,000 unit DAILY CHUY Administration Clopidogrel Bisulfate 75 mg 10/17/19 09:00 10/17/19 09:04 Plavix PO 75 mg DAILY CHUY Administration Cyanocobalamin 1,000 mcg 10/17/19 09:00 10/17/19 09:04 Vitamin B-12 PO 1,000 mcg DAILY CHUY Administration Famotidine 20 mg 10/16/19 21:00 10/17/19 09:03 Pepcid IV 20 mg Q12HR CHUY Administration Heparin Sodium (Porcine) 0 unit 10/16/19 14:02 10/16/19 22:24 Heparin IV 4,000 unit Q6HR PRN Administration Low PTT Protocol Heparin Sodium/Sodium Chloride 250 mls @ 10.043 mls/hr 10/16/19 14:15 10/17/19 12:57 25,000 unit/ Sodium Chloride IV 17.17 units/kg/hr .Q24H CHUY 21.028 mls/hr Titration Protocol 8.2 UNITS/KG/HR Sodium Chloride 1,000 ml/ IV 1,000 mls @ 124.2 mls/hr 10/17/19 10:52 10/17/19 12:13 Solution IV 10/17/19 18:55 124.2 mls/hr .Q8H4M ONE Administration 1 ML/KG/HR Insulin Detemir 10 unit 10/17/19 09:00 10/17/19 10:33 Levemir SQ 10 unit DAILY CHUY Administration Isosorbide Mononitrate 60 mg 10/16/19 21:00 10/17/19 09:04 Imdur PO 60 mg BID CHUY Administration Lisinopril 2.5 mg 10/17/19 09:00 10/17/19 09:04 Zestril PO 2.5 mg DAILY CHUY Administration Loratadine 10 mg 10/17/19 09:00 10/17/19 09:04 Claritin PO 10 mg DAILY CHUY Administration Metoprolol Succinate 100 mg 10/17/19 09:00 10/17/19 09:05 Toprol Xl PO 100 mg DAILY CHUY Administration Nicotine 1 patch 10/16/19 16:45 10/17/19 09:03 Habitrol 21mg/24hr Patch TRANSDERM 1 patch DAILY CHUY Administration Nitroglycerin 0.4 mg 10/16/19 20:24 10/16/19 21:03 Nitrostat SUBLINGUAL 0.4 mg Q5M PRN Administration Chest Pain Nitroglycerin 0.4 mg 10/17/19 10:52 Nitrostat SUBLINGUAL Q5M PRN Chest Pain Objective - Vital Signs Vital signs: Vital Signs Temp 98.5 F 10/17/19 12:27 Pulse 91 10/17/19 12:27 Resp 18 10/17/19 12:27 BP 129/72 10/17/19 12:27 Pulse Ox 93 L 10/17/19 12:27 Intake & Output 10/16/19 10/17/19 10/17/19 18:59 06:59 18:59 Intake Total 320 172.085 145.650 Output Total 450 Balance 320 -277.915 145.650 Weight 122.47 kg 124.2 kg Intake: IV 80 10 Heparin Sod,Pork in 0.45% 80 NaCl 25,000 unit In 0.45 % NaCl 1 250ml.bag @ 8.2 UNITS/KG/HR 10.043 mls/hr IV .Q24H [facility] Rx#: [id number] Invasive Line 2 10 Intake, IV Titration 172.085 135.650 Amount Heparin Sod,Pork in 0.45% 172.085 135.650 NaCl 25,000 unit In 0.45 % NaCl 1 250ml.bag @ 8.2 UNITS/KG/HR 10.043 mls/hr IV .Q24H [facility] Rx#: [id number] Oral 240 Output: Urine 450 Other: Voiding Method Toilet # Voids 1 1 # Bowel Movements 1 - Exam -GENERAL: The patient is alert and oriented x3, not in any acute distress. Obese HEENT: Pupils are round and equally reacting to light. EOMI. No scleral icterus. No conjunctival pallor. Normocephalic, atraumatic. No pharyngeal erythema. No thyromegaly. CARDIOVASCULAR: S1 and S2 present. No murmurs, rubs, or gallops. PULMONARY: Chest is clear to auscultation, no wheezing or crackles. ABDOMEN: Soft, nontender, nondistended, normoactive bowel sounds. No palpable organomegaly. MUSCULOSKELETAL: No joint swelling or deformity. EXTREMITIES: No cyanosis, clubbing, or pedal edema. NEUROLOGICAL: Gross neurological examination did not reveal any focal deficits. SKIN: No rashes. no petechiae. - Labs CBC & Chem 7: 10/17/19 03:57 10/17/19 03:57 Labs: Abnormal Lab Results - Last 24 Hours (Table) 10/16/19 10/16/19 10/16/19 Range/Units 12:49 16:33 19:36 Plt Count (150-450) k/uL APTT (22.0-30.0) sec Sodium (137-145) mmol/L Potassium (3.5-5.1) mmol/L Chloride (98-107) mmol/L Glucose (74-99) mg/dL POC Glucose (mg/dL) 179 H (75-99) mg/dL Troponin I 0.094 H* 0.099 H* (0.000-0.034) ng/mL Triglycerides (<150) mg/dL Cholesterol (<200) mg/dL HDL Cholesterol (40-60) mg/dL 10/16/19 10/17/19 10/17/19 Range/Units 20:18 01:35 03:57 Plt Count 135 L (150-450) k/uL APTT (22.0-30.0) sec Sodium (137-145) mmol/L Potassium (3.5-5.1) mmol/L Chloride (98-107) mmol/L Glucose (74-99) mg/dL POC Glucose (mg/dL) 183 H (75-99) mg/dL Troponin I 0.095 H* (0.000-0.034) ng/mL Triglycerides (<150) mg/dL Cholesterol (<200) mg/dL HDL Cholesterol (40-60) mg/dL 10/17/19 10/17/19 10/17/19 Range/Units 03:57 03:57 06:10 Plt Count (150-450) k/uL APTT 31.7 H (22.0-30.0) sec Sodium 129 L (137-145) mmol/L Potassium 5.2 H (3.5-5.1) mmol/L Chloride 93 L (98-107) mmol/L Glucose 173 H (74-99) mg/dL POC Glucose (mg/dL) 158 H (75-99) mg/dL Troponin I (0.000-0.034) ng/mL Triglycerides 635 H (<150) mg/dL Cholesterol 201 H (<200) mg/dL HDL Cholesterol 27 L (40-60) mg/dL 10/17/19 10/17/19 Range/Units 10:41 11:38 Plt Count (150-450) k/uL APTT 31.9 H (22.0-30.0) sec Sodium (137-145) mmol/L Potassium (3.5-5.1) mmol/L Chloride (98-107) mmol/L Glucose (74-99) mg/dL POC Glucose (mg/dL) 245 H (75-99) mg/dL Troponin I (0.000-0.034) ng/mL Triglycerides (<150) mg/dL Cholesterol (<200) mg/dL HDL Cholesterol (40-60) mg/dL Assessment and Plan Assessment: Chest pain, with elevated troponin 0.09 however patient has chronically elevated troponin on 08/2019. Rule out cardiac causes Hyponatremia, mostly pseudohyponatremia with elevated sugars Nicotine dependence Substance abuse with weed Obesity with BMI of 37 type 2 diabetes mellitus with diabetic neuropathy and arms and legs, with hyperg lycemia Hypertension Hyperlipidemia Chronic heart failure Chronic hypoxic respiratory failure on 2-2.5 L via nasal cannula oxygen COPD, not an active issue GERD History of pulmonary embolism, on Xarelto 15 Jacqueline daily History of prostate cancer Plan: This is a pleasant 58 years old male who presents because of chest pain. We will do cardiology consult. Serial troponins and EKG. Continue with aspirin, continue with heparin drip area to hold Xarelto while on heparin. Fluid restriction and cardiac cath on 10/17 Labs and medication were reviewed.. Continue same treatment. Continue with symptomatic treatment. Resume home medication. Monitor lytes and vitals. DVT and GI prophylaxis. Further recommendations of the clinical course of the patient DVT prophylaxis: heparin GI Prophylaxis: Pepcid Prognosis is guarded
[2019-10-17 17:14] LABS: Glucose,Whole Blood 196 mg/dL (75-99)
[2019-10-17 20:05] LABS: Glucose,Whole Blood 255 mg/dL (75-99)
[2019-10-17] MEDS: NITROGLYCERIN SL TABS 0.4 MG TAB SUBLINGUAL PRN (20:48)
[2019-10-17] MEDS: ALPRAZolam 0.5 MG TAB PO PRN (20:55)
[2019-10-18 04:52] LABS: Mean Platelet Volume 6.6; Platelet Count 129 k/uL (150-450)
[2019-10-18] MEDS: ASPIRIN 81 MG PO SCH ×2 (05:54→09:23)
[2019-10-18] MEDS ORDERED: ATORVASTATIN 80 MG TAB PO ONE (06:00)
[2019-10-18] MEDS ORDERED: ASPIRIN 325 MG TAB PO ONE (06:00)
[2019-10-18 06:11] LABS: Glucose,Whole Blood 156 mg/dL (75-99)
[2019-10-18 06:42] LABS: African American GFR (CKD) >90 (>60 ml/min/1.73 sqM); Anion Gap 9 mmol/L; Blood Urea Nitrogen 14 mg/dL (9-20); Calcium 8.9 mg/dL (8.4-10.2); Carbon Dioxide 29 mmol/L (22-30); Chloride 92 mmol/L (98-107); Glucose 159 mg/dL (74-99); Non-African American GFR(CKD) >90 (>60 ml/min/1.73 sqM); Sodium 130 mmol/L (137-145)
[2019-10-18 06:43] LABS: Potassium 4.7 mmol/L (3.5-5.1)
[2019-10-18] MEDS: IPRATROPIUM-ALBUTEROL 3 ML NEB INHALATION SCH ×5 (07:14→19:59)
[2019-10-18] MEDS: ALPRAZolam 0.5 MG TAB PO PRN ×2 (08:26→20:46)
[2019-10-18] MEDS: NICOTINE 21MG/24HR PATCH TRANSDERM SCH (08:26)
[2019-10-18] MEDS: METOPROLOL SUCCINATE (ER) 100 MG TAB.ER.24H PO SCH (08:27)
[2019-10-18] MEDS: ISOSORBIDE MONONITRATE ER 60 MG TAB.ER.24H PO SCH ×2 (08:27→20:46)
[2019-10-18] MEDS: LORATADINE 10 MG TAB PO SCH (08:27)
[2019-10-18] MEDS: CHOLECALCIFEROL 1,000 UNIT TAB PO SCH (08:27)
[2019-10-18] MEDS: CLOPIDOGREL 75 MG TAB PO SCH (08:27)
[2019-10-18] MEDS: CYANOCOBALAMIN 500 MCG TAB PO SCH (08:27)
[2019-10-18] MEDS: FAMOTIDINE 20 MG/2 ML VIAL IV SCH ×2 (08:27→20:46)
[2019-10-18] MEDS: LISINOPRIL 2.5 MG TAB PO SCH (09:24)
[2019-10-18] MEDS ORDERED: LIDOCAINE 1% INJ 10MG/ML (20 ML MDV) SQ ONE (10:09)
[2019-10-18] MEDS ORDERED: HYDROmorphone 1 MG/ML 1 ML SYRINGE IVP ONE ×2 (10:09→10:22)
[2019-10-18] MEDS ORDERED: MIDAZOLAM 2 MG/2 ML VIAL IVP ONE (10:09)
[2019-10-18] MEDS ORDERED: VERAPAMIL SYRINGE (5 MG/10 ML) INTRAARTER ONE ×2 (10:10→10:53)
[2019-10-18] MEDS ORDERED: HEPARIN SODIUM 1,000 UN/ML (10ML VL) IV ONE (10:12)
[2019-10-18] MEDS ORDERED: IV FLUID CONTINUATION 500 ML IV ONE (10:23)
[2019-10-18] MEDS ORDERED: NITROGLYCERIN 1000MCG/10ML SYRINGE INTRACORON ONE ×2 (10:39→10:52)
[2019-10-18] MEDS ORDERED: IOPAMIDOL-370 125ML BTL INJ ONE (10:53)
[2019-10-18] MEDS ORDERED: ZOLPIDEM 5 MG TAB PO PRN (11:06)
[2019-10-18] MEDS ORDERED: RX INFO: IV CONTRAST WAS GIVEN 1 EACH MISC MISCELLANE PRN (11:06)
[2019-10-18] MEDS ORDERED: ATROPINE SULFATE 0.1 MG/ML 10ML SYRINGE IV PRN (11:06)
[2019-10-18] MEDS ORDERED: NITROGLYCERIN SL TABS 0.4 MG TAB SUBLINGUAL PRN (11:06)
[2019-10-18] MEDS ORDERED: MAG HYDROX/AL HYDROX/SIMETH 30 ML CUP PO PRN (11:06)
[2019-10-18] MEDS ORDERED: SODIUM CHLORIDE 0.9% 1,000 ML IV SCH (11:15)
--- NOTE | 2019-10-18 11:20 | P.PCN ---
Date of Procedure: 10/18/19 Operative Findings: CARDIAC CATHETERIZATION AND PERCUTANEOUS CORONARY INTERVENTION PERFORMING PHYSICIAN: Bernardino Muir MD, VI PROCEDURE PERFORMED: 1. Selective right and left coronary angiogram 2. Left heart catheterization 3. Successful stenting of the mid RCA using 3.25 x 23 mm Xience HADLEY with an excellent angiographic results and reduction of stenosis from 100% to 0% INDICATION: This is a very pleasant 58-year-old gentleman with history of coronary artery disease and prior angioplasty and stenting of the RCA and LCx was admitted to the hospital with a chest discomfort and ruled in for acute non-ST elevation myocardial infarction. The decision was made to work a heart catheterization. COMPLICATION: Non- APPROACH: Right radial artery Right common femoral artery LEVEL OF SEDATION: Moderate sedation length of 48 minutes PROCEDURE DESCRIPTION: After obtaining an informed consent, the patient was brought to cardiac labor representative. Local anesthesia was performed using lidocaine subcutaneously. Initially I cannulated the right radial artery and I placed a 5-[place] sheath. I did give the patient 10,000 as of heparin IV and 2 mg of verapamil IV. Subsequently I did selective right and left coronary angiogram using a JR4 and JL 3.5 catheters. Left heart catheterization was performed using the JR4 catheter which across aortic valve then I did pullback across the valve after the catheter was flushed. Subsequently I attempted intervene on the RCA from the right radial approach but the guidewire seeking well and because of that I reported the radial approach and I decided to go from the groin. At that point the right common femoral artery was cannulated using micropuncture technique and I placed a 6-[place] sheath at the right common femoral artery. I did intervene on the right coronary artery. SELECTIVE CORONARY ANGIOGRAM: The right coronary artery: Is a large caliber vessel and a dominant vessel. The RCA is 100% occluded in the midportion with a hazy area. This occlusion is just proximal to prior stents. The distal RCA appears to have mild disease only and bifurcates into PDA and PLV branches and both appear to have mild disease only. Left main: Is angiographically normal. Bifurcates into LCx and LAD The left circumflex: Is a large caliber vessel. The proximal LCx has a lesion appears to be in the range of 50% and gives rises into OM1 which is a large caliber vessel with ostial disease appears to be in the range of 80-90%. Please note that OM1 is a stented. The LCx continue after that as a medium caliber vessel was mild to moderate disease only. The left anterior descending artery: The proximal LAD appeared to have mild disease only. The mid and distal LAD appears to be angiographically normal. LAD gives rises into a medium size diagonal branch which has mild to moderate disease only. HEMODYNAMICS: The LVEDP was 16-18 mmHg. PCI OF THE RCA: Anticoagulation was initiated with a heparin where the patient was given 10,000 as of heparin at the beginning of the procedure and additional 3000 of heparin throughout the procedure with continuous ACT monitoring. I did engage the RCA using JR4 guide. I was able to cross the total occlusion in the mid RCA using a long whisper J with a backup support of 20 by 12 mm [id number] balloon. Subsequently did balloon angioplasty of the mid RCA using initially 20 by 12 mm and then 2 5 x 12 mm balloon. Subsequently I deployed 3.25 x 23 mm Xience HADLEY where the stent was positioned under fluoroscopy guidance and deployed under 20 andrez for 20 seconds. I posterity the stent using 3.5 mm noncompliant balloon which was inflated under 20 andrez for 20 seconds. The final angiogram showed excellent angiographic results and the procedure was completed without any complications CONCLUSION: 1. Acute/subacute total occlusion of the mid RCA. I did successful stenting of the mid RCA with an excellent angiographic results 2. Severe disease involving the first obtuse marginal branch of the left circumflex just proximal to a stented segment 3. Mild disease involving the left anterior descending artery 4. Elevated left ventricular end-diastolic pressure POSTPROCEDURE MANAGEMENT: 1. Dual antiplatelet therapy 2. Aggressive cholesterol control 3. PCI of the LCx to be done 4. Follow-up with the patient
[2019-10-18 11:56] LABS: Glucose,Whole Blood 125 mg/dL (75-99)
--- NOTE | 2019-10-18 14:01 | P.PN ---
Subjective This is a pleasant 58 years old -[place] male with past medical history of chronic heart failure, coronary artery disease status post stent, COPD, GERD, hypertension, hyperlipidemia, pulmonary embolism, prostate cancer, type 2 diabetes mellitus with diabetic neuropathy and arms and legs, on home oxygen 2- 2.5 L via nasal cannula. His PCP is kymberly jackman and his mechanic's assistant is Dr. Camilo. Presents with chest pain felt like burning in the center radiating to the face and back 4 days duration about 7/10 in severity, for similar to his chest pain before when he had heart attacks. It with exertional dyspnea and some digital dry coughing. He still smokes about 1 pack per day, patient is counseled and he agrees to nicotine patch, no alcohol or illicit drugs other than weed Vitals are stable. Labs show an unremarkable CBC, INR. BMP showing sodium 1:30, creatinine normal 0.6, glucose is elevated 263, troponin is elevated 0.09. Chest x-ray: No acute process, COPD and atelectasis EKG showing normal sinus rhythm at 90 bpm with no significant ST-T changes On admission patient was placed on heparin drip and started on aspirin 325 mg daily 10/17/2019 Patient is still complaining of from exertional dyspnea but no chest pain, I s till have coughing with little phlegm Hemodynamically stable. showing sodium of 129, slightly worse than yesterday 130, potassium 5.2, glucose 245, Distal on heparin drip and Xarelto is on hold, Is also on aspirin or Plavix With the patient on fluid restriction 1500 ml/day Cardiology clinic for cardiac cath tomorrow 10/18/2019 Patient underwent coronary angiogram and PCI with successful stenting of the mid RCA. Postprocedure patient was lying in bed not in distress. Vitals and labs were reviewed Review of Systems CONSTITUTIONAL: No fever, no malaise, no fatigue. HEENT: No recent visual problems or hearing problems. Denied any sore throat. CARDIOVASCULAR: No orthopnea, PND, no palpitations, no syncope. PULMONARY: No shortness of breath, no cough, no hemoptysis. GASTROINTESTINAL: No diarrhea, no nausea, no vomiting, no abdominal pain. Normoactive bowel sounds. NEUROLOGICAL: No headaches, no weakness, no numbness. HEMATOLOGICAL: Denies any bleeding or petechiae. GENITOURINARY: Denies any burning micturition, frequency, or urgency. MUSCULOSKELETAL/RHEUMATOLOGICAL: Denies any joint pain, swelling, or any muscle pain. ENDOCRINE: Denies any polyuria or polydipsia. Active Medications Generic Name Dose Route Start Last Admin Trade Name Freq PRN Reason Stop Dose Admin Al Hydroxide/Mg Hydroxide 30 ml 10/18/19 11:06 Maalox PO Q4HR PRN Heartburn Albuterol/Ipratropium 3 ml 10/16/19 16:40 10/18/19 11:43 Duoneb 0.5 Mg-3 Mg/3 Ml Soln INHALATION 3 ml RT-QID CHUY Administration Alprazolam 0.25 mg 10/17/19 10:52 Xanax PO Q6HR PRN Mild Anxiety Alprazolam 0.5 mg 10/17/19 10:52 10/18/19 08:26 Xanax PO 0.5 mg Q6HR PRN Administration Moderate Anxiety Aspirin 81 mg 10/18/19 09:00 10/18/19 09:23 Aspirin PO 81 mg DAILY CHUY Administration Atropine Sulfate 0.5 mg 10/18/19 11:06 Atropine IV ONCE PRN Symptomatic Bradycardia Cholecalciferol 1,000 unit 10/17/19 09:00 10/18/19 08:27 Vitamin D3 (25 Mcg = 1000 Iu) PO 1,000 unit DAILY CHUY Administration Clopidogrel Bisulfate 75 mg 10/17/19 09:00 10/18/19 08:27 Plavix PO 75 mg DAILY CHUY Administration Cyanocobalamin 1,000 mcg 10/17/19 09:00 10/18/19 08:27 Vitamin B-12 PO 1,000 mcg DAILY CHUY Administration Famotidine 20 mg 10/16/19 21:00 10/18/19 08:27 Pepcid IV 20 mg Q12HR CHUY Administration Sodium Chloride 1,000 mls @ 75 mls/hr 10/18/19 11:15 10/18/19 12:41 Saline 0.9% IV 10/18/19 17:16 75 mls/hr .[id number] CHUY Administration Insulin Detemir 10 unit 10/17/19 09:00 10/17/19 10:33 Levemir SQ 10 unit DAILY CHUY Administration Isosorbide Mononitrate 60 mg 10/16/19 21:00 10/18/19 08:27 Imdur PO 60 mg BID CHUY Administration Lisinopril 2.5 mg 10/17/19 09:00 10/18/19 09:24 Zestril PO 2.5 mg DAILY CHUY Administration Loratadine 10 mg 10/17/19 09:00 10/18/19 08:27 Claritin PO 10 mg DAILY CHUY Administration Metoprolol Succinate 100 mg 10/17/19 09:00 10/18/19 08:27 Toprol Xl PO 100 mg DAILY CHUY Administration Miscellaneous Information 1 each 10/18/19 11:06 Rx Info: Iv Contrast Was Given MISCELLANE 10/20/19 11:07 DAILY PRN Per Protocol Nicotine 1 patch 10/16/19 16:45 10/18/19 08:26 Habitrol 21mg/24hr Patch TRANSDERM 1 patch DAILY CHUY Administration Nitroglycerin 0.4 mg 10/16/19 20:24 10/17/19 20:48 Nitrostat SUBLINGUAL 0.4 mg Q5M PRN Administration Chest Pain Nitroglycerin 0.4 mg 10/17/19 10:52 Nitrostat SUBLINGUAL Q5M PRN Chest Pain Zolpidem Tartrate 5 mg 10/18/19 11:06 Ambien PO HS PRN Insomnia Objective - Vital Signs Vital signs: Vital Signs Temp 97.7 F 10/18/19 11:50 Pulse 80 10/18/19 11:50 Resp 16 10/18/19 13:00 BP 110/64 10/18/19 13:00 Pulse Ox 93 L 10/18/19 13:00 Intake & Output 10/17/19 10/18/19 10/18/19 18:59 06:59 18:59 Intake Total 625.650 182.898 200 Output Total 180 500 Balance 625.650 2.898 -300 Weight 126.3 kg 126.3 kg Intake: IV 10 200 Invasive Line 2 10 Intake, IV Titration 135.650 182.898 Amount Heparin Sod,Pork in 0.45% 135.650 182.898 NaCl 25,000 unit In 0.45 % NaCl 1 250ml.bag @ 8.2 UNITS/KG/HR 10.043 mls/hr IV .Q24H [facility] Rx#: [id number] Oral 480 Output: Urine 180 500 Other: Voiding Method Toilet # Voids 1 - Exam -GENERAL: The patient is alert and oriented x3, not in any acute distress. Obese HEENT: Pupils are round and equally reacting to light. EOMI. No scleral icterus. No conjunctival pallor. Normocephalic, atraumatic. No pharyngeal erythema. No thyromegaly. CARDIOVASCULAR: S1 and S2 present. No murmurs, rubs, or gallops. PULMONARY: Chest is clear to auscultation, no wheezing or crackles. ABDOMEN: Soft, nontender, nondistended, normoactive bowel sounds. No palpable organomegaly. MUSCULOSKELETAL: No joint swelling or deformity. EXTREMITIES: No cyanosis, clubbing, or pedal edema. NEUROLOGICAL: Gross neurological examination did not reveal any focal deficits. SKIN: No rashes. no petechiae. - Labs CBC & Chem 7: 10/18/19 04:40 10/18/19 04:40 Labs: Abnormal Lab Results - Last 24 Hours (Table) 10/17/19 10/17/19 10/17/19 Range/Units 16:38 19:06 20:04 Plt Count (150-450) k/uL APTT 40.6 H (22.0-30.0) sec Sodium (137-145) mmol/L Chloride (98-107) mmol/L Glucose (74-99) mg/dL POC Glucose (mg/dL) 196 H 255 H (75-99) mg/dL 10/18/19 10/18/19 10/18/19 Range/Units 04:40 04:40 04:40 Plt Count 129 L (150-450) k/uL APTT 49.2 H (22.0-30.0) sec Sodium 130 L (137-145) mmol/L Chloride 92 L (98-107) mmol/L Glucose 159 H (74-99) mg/dL POC Glucose (mg/dL) (75-99) mg/dL 10/18/19 10/18/19 Range/Units 06:10 11:54 Plt Count (150-450) k/uL APTT (22.0-30.0) sec Sodium (137-145) mmol/L Chloride (98-107) mmol/L Glucose (74-99) mg/dL POC Glucose (mg/dL) 156 H 125 H (75-99) mg/dL Assessment and Plan Assessment: None STEMI, status post coronary angiogram and PCI with successful stenting of the mid RCA. Hyponatremia, mostly pseudohyponatremia with elevated sugars Nicotine dependence Substance abuse with weed Obesity with BMI of 37 type 2 diabetes mellitus with diabetic neuropathy and arms and legs, with hyperglycemia Hypertension Hyperlipidemia Chronic heart failure Chronic hypoxic respiratory failure on 2-2.5 L via nasal cannula oxygen COPD, not an active issue GERD History of pulmonary embolism, on Xarelto 15 Jacqueline daily History of prostate cancer Plan: This is a pleasant 58 years old male who presents because of chest pain. We will do cardiology consult. Serial troponins and EKG. Continue with aspirin, continue with heparin drip area to hold Xarelto while on heparin. Fluid restriction and follow-up with cardiology recommendation Labs and medication were reviewed.. Continue same treatment. Continue with symptomatic treatment. Resume home medication. Monitor lytes and vitals. DVT and GI prophylaxis. Further recommendations of the clinical course of the patient DVT prophylaxis: heparin GI Prophylaxis: Pepcid Prognosis is guarded
[2019-10-18 16:52] LABS: Glucose,Whole Blood 83 mg/dL (75-99)
[2019-10-18] MEDS: INSULIN DETEMIR (LEVEMIR) 100 UNIT/ML SYR SQ SCH (18:43)
[2019-10-18 20:27] LABS: Glucose,Whole Blood 104 mg/dL (75-99)
[2019-10-19 06:26] LABS: Glucose,Whole Blood 132 mg/dL (75-99)
[2019-10-19 06:29] LABS: Mean Platelet Volume 6.9; Platelet Count 149 k/uL (150-450)
[2019-10-19 06:37] LABS: African American GFR (CKD) >90 (>60 ml/min/1.73 sqM); Anion Gap 6 mmol/L; Blood Urea Nitrogen 12 mg/dL (9-20); Calcium 9.4 mg/dL (8.4-10.2); Carbon Dioxide 36 mmol/L (22-30); Chloride 88 mmol/L (98-107); Glucose 117 mg/dL (74-99); Non-African American GFR(CKD) >90 (>60 ml/min/1.73 sqM); Potassium 4.9 mmol/L (3.5-5.1); Sodium 130 mmol/L (137-145)
[2019-10-19] MEDS: IPRATROPIUM-ALBUTEROL 3 ML NEB INHALATION SCH ×5 (08:27→23:27)
[2019-10-19] MEDS: LORATADINE 10 MG TAB PO SCH (08:40)
[2019-10-19] MEDS: LISINOPRIL 2.5 MG TAB PO SCH (08:40)
[2019-10-19] MEDS: CYANOCOBALAMIN 500 MCG TAB PO SCH (08:40)
[2019-10-19] MEDS: METOPROLOL SUCCINATE (ER) 100 MG TAB.ER.24H PO SCH (08:40)
[2019-10-19] MEDS: CLOPIDOGREL 75 MG TAB PO SCH (08:40)
[2019-10-19] MEDS: FAMOTIDINE 20 MG/2 ML VIAL IV SCH (08:40)
[2019-10-19] MEDS: ISOSORBIDE MONONITRATE ER 60 MG TAB.ER.24H PO SCH ×2 (08:40→19:55)
[2019-10-19] MEDS: CHOLECALCIFEROL 1,000 UNIT TAB PO SCH (08:40)
[2019-10-19] MEDS: INSULIN DETEMIR (LEVEMIR) 100 UNIT/ML SYR SQ SCH (08:40)
[2019-10-19] MEDS: NICOTINE 21MG/24HR PATCH TRANSDERM SCH (08:41)
[2019-10-19] MEDS ORDERED: SODIUM CHLORIDE 0.9% 500 ML 500 ML IV ONE (10:31)
[2019-10-19] MEDS ORDERED: SODIUM CHLORIDE 0.9% 1,000 ML IV ONE ×2 (10:31→21:55)
[2019-10-19] MEDS ORDERED: MIDAZOLAM 2 MG/2 ML VIAL IV ONE (10:58)
[2019-10-19] MEDS ORDERED: LIDOCAINE 1% INJ 10MG/ML (20 ML MDV) SQ ONE (10:59)
[2019-10-19] MEDS ORDERED: HYDROmorphone 1 MG/ML 1 ML SYRINGE ONE (11:00)
[2019-10-19] MEDS ORDERED: HYDROmorphone 1 MG/ML 1 ML SYRINGE IVP ONE (11:02)
[2019-10-19] MEDS ORDERED: BIVALIRUDIN BOLUS 250 MG/50 ML IV ONE (11:09)
[2019-10-19] MEDS ORDERED: BIVALIRUDIN 250 MG in SODIUM CHLORIDE 0.9% 50 ML IV ONE (11:10)
--- NOTE | 2019-10-19 11:21 | P.PN ---
Subjective This is a pleasant 58 years old -[place] male with past medical history of chronic heart failure, coronary artery disease status post stent, COPD, GERD, hypertension, hyperlipidemia, pulmonary embolism, prostate cancer, type 2 diabetes mellitus with diabetic neuropathy and arms and legs, on home oxygen 2- 2.5 L via nasal cannula. His PCP is kymberly jackman and his underwater roboticist is Dr. Camilo. Presents with chest pain felt like burning in the center radiating to the face and back 4 days duration about 7/10 in severity, for similar to his chest pain before when he had heart attacks. It with exertional dyspnea and some digital dry coughing. He still smokes about 1 pack per day, patient is counseled and he agrees to nicotine patch, no alcohol or illicit drugs other than weed Vitals are stable. Labs show an unremarkable CBC, INR. BMP showing sodium 1:30, creatinine normal 0.6, glucose is elevated 263, troponin is elevated 0.09. Chest x-ray: No acute process, COPD and atelectasis EKG showing normal sinus rhythm at 90 bpm with no significant ST-T changes On admission patient was placed on heparin drip and started on aspirin 325 mg daily 10/17/2019 Patient is still complaining of from exertional dyspnea but no chest pain, I s till have coughing with little phlegm Hemodynamically stable. showing sodium of 129, slightly worse than yesterday 130, potassium 5.2, glucose 245, Distal on heparin drip and Xarelto is on hold, Is also on aspirin or Plavix With the patient on fluid restriction 1500 ml/day Cardiology clinic for cardiac cath tomorrow 10/18/2019 Patient underwent coronary angiogram and PCI with successful stenting of the mid RCA. Postprocedure patient was lying in bed not in distress. Vitals and labs were reviewed 10/19/2019 Patient is status post coronary angiogram and stenting of his mid RCA, however as per discussion with cardiology team he might need another stent. He was started on aspirin and Plavix and importance of antacid therapy is explained to him and he agrees I discussed the case with the patient in the morning, he was sitting comfortable in chair and was asking to be discharged today however later on developed chest pain radiating to the left arm and it was decided the patient to go to another cardiac cath today. Patient confirms to me that he is on Xarelto 15 mg daily and he was just taken before coming to the hospital, he confirmed to me he has a prescription for it at home. Also he confirms to me that he is on home oxygen for his COPD, about 2-3 L. Sodium 130, lipase 149 improving. Sugar controlled Review of Systems CONSTITUTIONAL: No fever, no malaise, no fatigue. HEENT: No recent visual problems or hearing problems. Denied any sore throat. CARDIOVASCULAR: No orthopnea, PND, no palpitations, no syncope. PULMONARY: No shortness of breath, no cough, no hemoptysis. GASTROINTESTINAL: No diarrhea, no nausea, no vomiting, no abdominal pain. Normoactive bowel sounds. NEUROLOGICAL: No headaches, no weakness, no numbness. HEMATOLOGICAL: Denies any bleeding or petechiae. GENITOURINARY: Denies any burning micturition, frequency, or urgency. MUSCULOSKELETAL/RHEUMATOLOGICAL: Denies any joint pain, swelling, or any muscle pain. ENDOCRINE: Denies any polyuria or polydipsia. Active Medications Generic Name Dose Route Start Last Admin Trade Name Freq PRN Reason Stop Dose Admin Al Hydroxide/Mg Hydroxide 30 ml 10/18/19 11:06 Maalox PO Q4HR PRN Heartburn Albuterol/Ipratropium 3 ml 10/16/19 16:40 10/19/19 08:27 Duoneb 0.5 Mg-3 Mg/3 Ml Soln INHALATION 3 ml RT-QID CHUY Administration Alprazolam 0.25 mg 10/17/19 10:52 Xanax PO Q6HR PRN Mild Anxiety Alprazolam 0.5 mg 10/17/19 10:52 10/18/19 20:46 Xanax PO 0.5 mg Q6HR PRN Administration Moderate Anxiety Aspirin 81 mg 10/18/19 09:00 10/18/19 09:23 Aspirin PO 81 mg DAILY CHUY Administration Atropine Sulfate 0.5 mg 10/18/19 11:06 Atropine IV ONCE PRN Symptomatic Bradycardia Cholecalciferol 1,000 unit 10/17/19 09:00 10/19/19 08:40 Vitamin D3 (25 Mcg = 1000 Iu) PO 1,000 unit DAILY CHUY Administration Clopidogrel Bisulfate 75 mg 10/17/19 09:00 10/19/19 08:40 Plavix PO 75 mg DAILY CHUY Administration Cyanocobalamin 1,000 mcg 10/17/19 09:00 10/19/19 08:40 Vitamin B-12 PO 1,000 mcg DAILY CHUY Administration Famotidine 20 mg 10/16/19 21:00 10/19/19 08:40 Pepcid IV 20 mg Q12HR CHUY Administration Insulin Detemir 10 unit 10/17/19 09:00 10/19/19 08:40 Levemir SQ 10 unit DAILY CHUY Administration Isosorbide Mononitrate 60 mg 10/16/19 21:00 10/19/19 08:40 Imdur PO 60 mg BID CHUY Administration Lisinopril 2.5 mg 10/17/19 09:00 10/19/19 08:40 Zestril PO 2.5 mg DAILY CHUY Administration Loratadine 10 mg 10/17/19 09:00 10/19/19 08:40 Claritin PO 10 mg DAILY CHUY Administration Metoprolol Succinate 100 mg 10/17/19 09:00 10/19/19 08:40 Toprol Xl PO 100 mg DAILY CHUY Administration Miscellaneous Information 1 each 10/18/19 11:06 Rx Info: Iv Contrast Was Given MISCELLANE 10/20/19 11:07 DAILY PRN Per Protocol Nicotine 1 patch 10/16/19 16:45 10/19/19 08:41 Habitrol 21mg/24hr Patch TRANSDERM 1 patch DAILY CHUY Administration Nitroglycerin 0.4 mg 10/16/19 20:24 10/17/19 20:48 Nitrostat SUBLINGUAL 0.4 mg Q5M PRN Administration Chest Pain Nitroglycerin 0.4 mg 10/17/19 10:52 Nitrostat SUBLINGUAL Q5M PRN Chest Pain Zolpidem Tartrate 5 mg 10/18/19 11:06 Ambien PO HS PRN Insomnia Objective - Vital Signs Vital signs: Vital Signs Temp 98.2 F 10/19/19 08:00 Pulse 90 10/19/19 08:41 Resp 18 10/19/19 08:00 BP 129/91 10/19/19 08:00 Pulse Ox 93 L 10/19/19 08:00 Intake & Output 10/18/19 10/19/19 10/19/19 18:59 06:59 18:59 Intake Total 200 200 240 Output Total 500 Balance -300 200 240 Weight 126.3 kg 126 kg Intake: IV 200 Oral 200 240 Output: Urine 500 Other: Voiding Method Toilet - Exam -GENERAL: The patient is alert and oriented x3, not in any acute distress. Obese HEENT: Pupils are round and equally reacting to light. EOMI. No scleral icterus. No conjunctival pallor. Normocephalic, atraumatic. No pharyngeal erythema. No thyromegaly. CARDIOVASCULAR: S1 and S2 present. No murmurs, rubs, or gallops. PULMONARY: Chest is clear to auscultation, no wheezing or crackles. ABDOMEN: Soft, nontender, nondistended, normoactive bowel sounds. No palpable organomegaly. MUSCULOSKELETAL: No joint swelling or deformity. EXTREMITIES: No cyanosis, clubbing, or pedal edema. NEUROLOGICAL: Gross neurological examination did not reveal any focal deficits. SKIN: No rashes. no petechiae. - Labs CBC & Chem 7: 10/19/19 05:57 10/19/19 05:57 Labs: Abnormal Lab Results - Last 24 Hours (Table) 10/18/19 10/18/19 10/19/19 Range/Units 11:54 20:26 05:57 Plt Count 149 L (150-450) k/uL Sodium (137-145) mmol/L Chloride (98-107) mmol/L Carbon Dioxide (22-30) mmol/L Glucose (74-99) mg/dL POC Glucose (mg/dL) 125 H 104 H (75-99) mg/dL 10/19/19 10/19/19 Range/Units 05:57 06:24 Plt Count (150-450) k/uL Sodium 130 L (137-145) mmol/L Chloride 88 L (98-107) mmol/L Carbon Dioxide 36 H (22-30) mmol/L Glucose 117 H (74-99) mg/dL POC Glucose (mg/dL) 132 H (75-99) mg/dL Assessment and Plan Assessment: None STEMI, status post coronary angiogram and PCI with successful stenting of the mid RCA. Hyponatremia, mostly pseudohyponatremia with elevated sugars Nicotine dependence Substance abuse with weed Obesity with BMI of 37 type 2 diabetes mellitus with diabetic neuropathy and arms and legs, with hyperglycemia Hypertension Hyperlipidemia Chronic heart failure Chronic hypoxic respiratory failure on 2-2.5 L via nasal cannula oxygen COPD, not an active issue GERD History of pulmonary embolism, on Xarelto 15 Jacqueline daily History of prostate cancer Plan: This is a pleasant 58 years old male who presents because of chest pain. Discussed with cartilage team, patient can resume his oral to tomorrow. Patient is going for another cath. Fluid restriction. Continue with aspirin and Plavix and importance of) therapies explained. Resume his oral Xarelto after the cardiac cath Labs and medication were reviewed.. Continue same treatment. Continue with symptomatic treatment. Resume home medication. Monitor lytes and vitals. DVT and GI prophylaxis. Further recommendations of the clinical course of the patient DVT prophylaxis: heparin GI Prophylaxis: Pepcid Prognosis is guarded
[2019-10-19] MEDS ORDERED: CLOPIDOGREL 75 MG TAB ONE (11:25)
[2019-10-19] MEDS ORDERED: MAG HYDROX/AL HYDROX/SIMETH 30 ML CUP PO PRN (11:29)
[2019-10-19] MEDS ORDERED: ZOLPIDEM 5 MG TAB PO PRN (11:29)
[2019-10-19] MEDS ORDERED: NITROGLYCERIN SL TABS 0.4 MG TAB SUBLINGUAL PRN (11:29)
[2019-10-19] MEDS ORDERED: RX INFO: IV CONTRAST WAS GIVEN 1 EACH MISC MISCELLANE PRN (11:29)
[2019-10-19] MEDS ORDERED: ATROPINE SULFATE 0.1 MG/ML 10ML SYRINGE IV PRN (11:29)
[2019-10-19] MEDS ORDERED: SODIUM CHLORIDE 0.9% 1,000 ML IV SCH (11:30)
[2019-10-19] MEDS ORDERED: CLOPIDOGREL 75 MG TAB PO ONE (11:31)
[2019-10-19] MEDS ORDERED: IOPAMIDOL-370 125ML BTL INJ ONE (11:32)
[2019-10-19] MEDS ORDERED: amLODIPine 5 MG TAB PO STA ×2 (12:39→14:04)
[2019-10-19] MEDS: ALPRAZolam 0.5 MG TAB PO PRN (12:43)
--- NOTE | 2019-10-19 12:51 | P.PN ---
Subjective Progress Note Date: 10/19/19 This is a 58-year-old male patient of Dr. Muir, previously seen by Dr. VC Fernando, with past medical history of coronary artery disease with previous stenting of the left circumflex coronary artery and history of hypertension, hyperlipidemia, obesity. Patient also has history of obstructive sleep apnea but does not wear CPAP and also does not utilize home oxygen at bedtime. History of COPD, has esophageal reflux disease, pulmonary embolism, prostate cancer, diabetes mellitus type 2 with diabetic neuropathy. History of Patient under went a heart catheterization May [address] Muir that revealed intermediate triple-vessel coronary artery disease and patent stent in the OM one of the left circumflex. Recommendations at that time was to maximize medical treatment and aggressive cholesterol control. Echocardiogram at that time revealed EF of 55-60% with mild mitral regurgitation, mild tricuspid regurgitation. Presented to the hospital with symptoms of chest discomfort. St ate to the cardiac catheterization lab yesterday by Dr. Camilo where he underwent successful stenting of the mid right coronary artery, reduction in stenosis from 100-0%. Patient was also found to have a significant lesion in the circumflex artery. At the time of my examination this morning, patient complained of midsternal chest discomfort and left arm pain after ambulating to the bathroom, I contacted Dr. Camilo at that time who advised that the patient be taken directly to the cardiac catheterization lab. Blood pressure 168/70 with a heart rate in the 70s, 90% on 3 L of oxygen. Sodium 130, potassium 4.9, BUN 12, creatinine 0.6. Platelet count is 149. Objective - Vital Signs Vital signs: Vital Signs Temp 98 F 10/19/19 12:00 Pulse 90 10/19/19 08:41 Resp 18 10/19/19 12:00 BP 169/76 10/19/19 12:36 Pulse Ox 90 L 10/19/19 12:00 Intake & Output 10/18/19 10/19/19 10/19/19 18:59 06:59 18:59 Intake Total 200 200 378 Output Total 500 Balance -300 200 378 Weight 126.3 kg 126 kg Intake: IV 200 138 Oral 200 240 Output: Urine 500 Other: Voiding Method Toilet - Exam Physical examination: Gen: This is a 58-year-old obese male. Patient is complaining of midsternal chest pressure and heaviness VS: Afebrile, heart rate 74, blood pressure 162/77, pulse ox 90% on 2 L nasal cannula. HEENT: Head is atraumatic, normocephalic. Pupils equal, round. Sclerae is anicteric. NECK: Supple. No JVD. No lymphadenopathy. No thyromegaly. LUNGS: Clear to auscultation. No wheezes or rhonchi. No intercostal retractions. HEART: Regular rate and rhythm. No murmur. ABDOMEN: Soft. Bowel sounds are present. No masses. No tenderness. EXTREMITIES: No pedal edema. No calf tenderness. Right radial site clean and dry, good distal pulse. NEUROLOGICAL: Patient is awake, alert and oriented x3. Cranial nerves 2 through 12 are grossly intact. - Labs CBC & Chem 7: 10/19/19 05:57 10/19/19 05:57 Labs: Abnormal Lab Results - Last 24 Hours (Table) 10/18/19 10/19/19 10/19/19 Range/Units 20:26 05:57 05:57 Plt Count 149 L (150-450) k/uL Sodium 130 L (137-145) mmol/L Chloride 88 L (98-107) mmol/L Carbon Dioxide 36 H (22-30) mmol/L Glucose 117 H (74-99) mg/dL POC Glucose (mg/dL) 104 H (75-99) mg/dL 10/19/19 Range/Units 06:24 Plt Count (150-450) k/uL Sodium (137-145) mmol/L Chloride (98-107) mmol/L Carbon Dioxide (22-30) mmol/L Glucose (74-99) mg/dL POC Glucose (mg/dL) 132 H (75-99) mg/dL Assessment and Plan Plan: Assessment and plan: #1 non-ST elevation DC, status post angioplasty and stenting of the RCA #2 History of coronary artery disease #3 Hypertension #4 Hyperlipidemia #5 Chronic diastolic heart failure #6 COPD #7 History of pulmonary embolism on chronic Xarelto #8 History of prostate cancer Plan Patient developed fairly sudden onset of chest discomfort with radiation to the arm this morning after ambulating to the bathroom. He will be taken directly back down to the cardiac catheterization lab today. We will continue to follow DNP note has been reviewed, I agree with a documented findings and plan of care. Patient was seen and examined.
--- NOTE | 2019-10-19 13:37 | P.PCN ---
Date of Procedure: 10/19/19 Operative Findings: CARDIAC CATHETERIZATION AND PERCUTANEOUS CORONARY INTERVENTION PERFORMING PHYSICIAN: Bernardino Muir MD, [facility] PROCEDURE PERFORMED: 1. Selective right and left coronary angiogram 3. Successful stenting of the first obtuse marginal branch of left circumflex using 3.25 x 12 mm Xience HADLEY with an excellent angiographic results INDICATION: This is a very pleasant 58-year-old gentleman was coronary artery disease and prior angioplasty and stenting of the RCA as well as first obtuse marginal branch in the past was admitted to the hospital recently with chest discomfort and ruled in for acute non-ST patient myocardial infarction. He underwent a heart catheterization yesterday and stenting of the RCA. Also he was found to have severe disease involving OM1 of the LCx. The plan is to fix that OM1 in the next few days. Unfortunately earlier today he was experiencing chest discomfort and because of that he was brought downstairs to the cardiac rn lab to undergo a cardiac catheterization and possible percutaneous coronary intervention COMPLICATION: None APPROACH: Right common femoral artery LEVEL OF SEDATION: Moderate sedation length of 27 minutes PROCEDURE DESCRIPTION: After obtaining an informed consent the patient was brought to the cardiac rn lab. The right common femoral artery was cannulated using micropuncture technique, the micropuncture wire passed easily then I placed a 6-Malay sheath in the right common femoral artery. Selective right and left coronary angiogram performed using JR4 for the right coronary system and an XB 354 the left coronary system. Subsequently I did intervene on the LCx. SELECTIVE CORONARY ANGIOGRAM: The right coronary artery: Is a large caliber vessel and a dominant vessel. the proximal RCA appears to have mild disease only. The proximal to mid RCA is a stented and the stent is patent. The mid RCA has mild to moderate disease only. The RCA distally appears to have mild disease only. The left circumflex: Is a large caliber vessel. The proximal LCx has mild disease only. Gives rises into a large OM1 which appears to have previously stent in the midportion but proximal to the stent there is a lesion appeared to be in the range of 80-90%. The left anterior descending artery: The proximal LAD appeared to have mild disease only. The mid and distal LAD appears to be angiographically normal. LAD gives rises into a medium size diagonal branch which has mild to moderate disease only. PCI OF THE LCX: Anticoagulation was initiated using Angiomax. Subsequently I did engage the RCA using an XB 35 guide. I did wire OM1 using a whisper wire and I did wire the left circumflex using a run-through wire. Subsequently I did balloon angioplasty of OM1 using 30 by 12 mm balloon before I deployed 3.25 x 12 mm Xience HADLEY where the stent was positioned under fluoroscopy guidance and deployed under 12 andrez for 20 seconds. The following angiogram showed an excellent angiographic results and the procedure was completed without any complication. CONCLUSION: 1. Ptent stent in the right coronary artery from previous intervention was performed yesterday 2. Critical disease involving OM1 of the LCx. I did performed today successful stenting of OM1 with an excellent angiographic results 3. Mild disease involving the left anterior descending artery POSTPROCEDURE MANAGEMENT: 1. Dual antiplatelet therapy 2. Aggressive cholesterol control 3. Follow-up with the patient
[2019-10-19] MEDS ORDERED: ATROPINE SULFATE 0.1 MG/ML 10ML SYRINGE ONE (14:56)
[2019-10-19] MEDS: HYDROmorphone 0.5 MG/0.5 ML SYRINGE IVP PRN (16:31)
[2019-10-19] MEDS ORDERED: FUROSEMIDE 10 MG/ML 4 ML VIAL ONE (17:45)
[2019-10-19] MEDS ORDERED: FUROSEMIDE 10 MG/ML 4 ML VIAL IV STA (17:45)
[2019-10-19 18:23] LABS: Glucose,Whole Blood 118 mg/dL (75-99)
[2019-10-19 18:33] LABS: ABG PH 7.27 (7.35-7.45); ABG PO2 67 mmHg (83-108); ABG TCO2 45 mmol/L (19-24); Allen Test Performed? Yes
[2019-10-19 18:35] LABS: ABG HCO3 42 mmol/L (21-25); ABG PCO2 92 mmHg (35-45)
[2019-10-19] MEDS ORDERED: FUROSEMIDE 10 MG/ML 2 ML VIAL IV ONE (18:50)
[2019-10-19 19:35] LABS: Glucose,Whole Blood 168 mg/dL (75-99)
[2019-10-19] MEDS ORDERED: CLEVIDIPINE BUTYRATE 25 MG/50 ML VIAL IV ONE (19:47)
[2019-10-19] MEDS: FAMOTIDINE 20 MG TAB PO SCH (19:55)
[2019-10-19] MEDS ORDERED: NALOXONE 0.4 MG/ML 1 ML VIAL IV PRN (19:58)
[2019-10-19] MEDS ORDERED: CLEVIDIPINE BUTYRATE 25 MG in EMPTY BAG 1 BAG IV SCH (20:00)
[2019-10-19 20:02] LABS: ABG Oxygen Saturation 93.5 % (94-97); ABG PO2 84 mmHg (83-108); Allen Test Performed? Yes
[2019-10-19 20:07] LABS: ABG PCO2 >120 mmHg (35-45); ABG PH 7.16 (7.35-7.45)
--- NOTE | 2019-10-19 20:12 | XR ---
EXAMINATION TYPE: XR chest 1V portable DATE OF EXAM: 10/19/2019 CLINICAL HISTORY: Difficulty breathing progress study. TECHNIQUE: Single AP portable supine view of the chest is obtained. COMPARISON: Chest x-ray from 3 days earlier and older x-rays. FINDINGS: Diminished inspiration on current study. Background chronic parenchymal change bilaterally without suspicious new focal airspace opacity, pleural effusion, or pneumothorax seen. Cardiac silho uette size now enlarged. Multilevel spurring in the spine seen. IMPRESSION: Chronic parenchyma changes redemonstrated. New cardiomegaly suspected partially on the ba sis of poor inspiration. No new focal infiltrate.
[2019-10-19] MEDS ORDERED: SUCCINYLCHOLINE CHLORIDE VIAL 200 MG/10 ML VIAL IV ONE (20:40)
[2019-10-19] MEDS ORDERED: PROPOFOL 10 MG/ML 20 ML VIAL IV ONE (20:40)
[2019-10-19 20:42] LABS: Anisocytosis Slight; Basophils # (A) 0.1 k/uL (0-0.2); Basophils % (A) 1 %; Eosinophils # (A) 0.1 k/uL (0-0.7); Eosinophils % (A) 1 %; HCT 53.4 % (39.0-53.0); HGB 16.5 gm/dL (13.0-17.5); Hypochromasia Slight; Lymphocytes # (A) 0.8 k/uL (1.0-4.8); Lymphocytes % (A) 8 %; MCH 29.6 pg (25.0-35.0); MCHC 30.8 g/dL (31.0-37.0); MCV 96.2 fL (80.0-100.0); Macrocytosis Slight; Mean Platelet Volume 6.9; Monocytes # (A) 0.5 k/uL (0-1.0); Monocytes % (A) 6 %; Neutrophils % (A) 83 %; Platelet Count 159 k/uL (150-450); RBC 5.56 m/uL (4.30-5.90); RDW 17.2 % (11.5-15.5); WBC 9.6 k/uL (3.8-10.6)
[2019-10-19] MEDS ORDERED: PROPOFOL 100 ML IV ONE (20:44)
[2019-10-19 20:52] LABS: ALT 63 U/L (4-49); AST 55 U/L (17-59); African American GFR (CKD) >90 (>60 ml/min/1.73 sqM); Albumin 4.9 g/dL (3.5-5.0); Alkaline Phosphatase 92 U/L (38-126); Blood Urea Nitrogen 13 mg/dL (9-20); Calcium 9.4 mg/dL (8.4-10.2); Chloride 81 mmol/L (98-107); Glucose 169 mg/dL (74-99); Magnesium 1.9 mg/dL (1.6-2.3); Non-African American GFR(CKD) >90 (>60 ml/min/1.73 sqM); Potassium 5.9 mmol/L (3.5-5.1); Sodium 131 mmol/L (137-145); Total Bilirubin 0.8 mg/dL (0.2-1.3); Total Protein 8.4 g/dL (6.3-8.2)
[2019-10-19 20:59] LABS: Anion Gap 9 mmol/L
[2019-10-19 21:04] LABS: Carbon Dioxide 41 mmol/L (22-30)
[2019-10-19 21:13] LABS: ABG Base Excess 14.6 mmol/L; ABG Oxygen Saturation 96.3 % (94-97); ABG PO2 100 mmHg (83-108); ABG TCO2 47 mmol/L (19-24); Allen Test Performed? Yes
[2019-10-19 21:17] LABS: ABG PH 7.17 (7.35-7.45)
[2019-10-19 21:18] LABS: ABG HCO3 43 mmol/L (21-25); ABG PCO2 119 mmHg (35-45)
--- NOTE | 2019-10-19 21:19 | XR ---
EXAMINATION TYPE: XR chest 1V DATE OF EXAM: 10/19/2019 CLINICAL HISTORY: Difficulty breathing had to be intubated. TECHNIQUE: Single AP portable supine view of the chest is obtained. COMPARISON: Chest x-ray from earlier today FINDINGS: New Endotracheal tube terminates inferior clavicular margin approximately 6 to 7 m above t he jany. New oral gastric tube terminating near diaphragmatic hiatus, advise advancing 6-8 cm. Persistent chronic parenchymal change with left basilar linear scarring and/or atelectasis. No new fo renato airspace opacity, pleural effusion, or pneumothorax seen bilaterally. Stable mild cardiomegaly. O sseous structures are intact. IMPRESSION: 1. New endotracheal tube satisfactory in position. Orogastric tube tip at diaphragm level, advise adv ancing 6 to 8 cm. 2. Chronic parenchymal changes and mild cardiomegaly without suspicious acute pulmonary process.
[2019-10-19] MEDS: PROPOFOL 1,000 MG in EMPTY BAG 1 BAG IV SCH ×2 (21:30→23:25)
[2019-10-19] MEDS ORDERED: NOREPINEPHRIN 4 MG-0.9% NS PMX 4 MG/250 ML ML IV ONE (21:49)
[2019-10-19] MEDS ORDERED: DEXAMETHASONE SOD PHOSPHATE 4 MG/ML 1 ML VIAL IV STA (22:01)
[2019-10-19] MEDS: NOREPINEPHRINE 4 MG in SODIUM CHLORIDE 0.9% 250 ML IV SCH (22:25)
[2019-10-19] MEDS: SODIUM CHLORIDE 0.9% 1,000 ML IV SCH (22:26)
[2019-10-19 22:33] LABS: ABG Base Excess 15.5 mmol/L; ABG Oxygen Saturation 99.2 % (94-97); ABG PH 7.29 (7.35-7.45); ABG PO2 152 mmHg (83-108); ABG TCO2 45 mmol/L (19-24); Allen Test Performed? Yes
[2019-10-19 22:37] LABS: ABG PCO2 87 mmHg (35-45)
[2019-10-19 22:38] LABS: ABG HCO3 42 mmol/L (21-25)
[2019-10-20] MEDS: PROPOFOL 1,000 MG in EMPTY BAG 1 BAG IV SCH ×9 (02:38→21:02)
[2019-10-20] MEDS: NOREPINEPHRINE 4 MG in SODIUM CHLORIDE 0.9% 250 ML IV SCH (02:39)
[2019-10-20] MEDS: IPRATROPIUM-ALBUTEROL 3 ML NEB INHALATION SCH ×5 (03:46→19:34)
[2019-10-20 05:36] LABS: Anisocytosis Slight; Basophils % (A) 0 %; Eosinophils # (A) 0.1 k/uL (0-0.7); Eosinophils % (A) 1 %; HCT 46.4 % (39.0-53.0); HGB 15.4 gm/dL (13.0-17.5); Hypochromasia Slight; Lymphocytes # (A) 0.7 k/uL (1.0-4.8); Lymphocytes % (A) 9 %; MCH 31.8 pg (25.0-35.0); MCHC 33.2 g/dL (31.0-37.0); MCV 95.8 fL (80.0-100.0); Macrocytosis Slight; Mean Platelet Volume 7.6; Monocytes # (A) 0.4 k/uL (0-1.0); Monocytes % (A) 5 %; Neutrophils # (A) 6.5 k/uL (1.3-7.7); Neutrophils % (A) 84 %; Platelet Count 140 k/uL (150-450); RBC 4.84 m/uL (4.30-5.90); RDW 17.4 % (11.5-15.5); WBC 7.7 k/uL (3.8-10.6)
[2019-10-20 05:51] LABS: African American GFR (CKD) >90 (>60 ml/min/1.73 sqM); Anion Gap 7 mmol/L; Blood Urea Nitrogen 15 mg/dL (9-20); Carbon Dioxide 37 mmol/L (22-30); Chloride 86 mmol/L (98-107); Glucose 151 mg/dL (74-99); Non-African American GFR(CKD) >90 (>60 ml/min/1.73 sqM); Potassium 5.1 mmol/L (3.5-5.1); Sodium 130 mmol/L (137-145)
[2019-10-20 07:09] LABS: ABG Base Excess 13.9 mmol/L; ABG HCO3 39 mmol/L (21-25); ABG Oxygen Saturation 88.1 % (94-97); ABG PCO2 63 mmHg (35-45); ABG TCO2 41 mmol/L (19-24); Allen Test Performed? Yes
[2019-10-20 07:14] LABS: ABG PO2 53 mmHg (83-108)
[2019-10-20] MEDS: CHLORHEXIDINE GLUCONATE 15 ML CUP MUCOUS MEM SCH ×2 (08:12→20:33)
[2019-10-20] MEDS: LISINOPRIL 2.5 MG TAB PO SCH (08:12)
[2019-10-20] MEDS: LORATADINE 10 MG TAB PO SCH (08:12)
[2019-10-20] MEDS: CHOLECALCIFEROL 1,000 UNIT TAB PO SCH (08:12)
[2019-10-20] MEDS: ASPIRIN 81 MG PO SCH (08:12)
[2019-10-20] MEDS: INSULIN DETEMIR (LEVEMIR) 100 UNIT/ML SYR SQ SCH (08:13)
[2019-10-20] MEDS: CLOPIDOGREL 75 MG TAB PO SCH (08:13)
[2019-10-20] MEDS: NICOTINE 21MG/24HR PATCH TRANSDERM SCH (08:13)
[2019-10-20] MEDS: FAMOTIDINE 20 MG TAB PO SCH ×2 (08:13→20:33)
[2019-10-20] MEDS: CYANOCOBALAMIN 500 MCG TAB PO SCH (08:13)
--- NOTE | 2019-10-20 08:21 | XR ---
EXAMINATION TYPE: XR chest 1V portable DATE OF EXAM: 10/20/2019 COMPARISON: Prior chest x-ray 10/19/2019 HISTORY: Intubated TECHNIQUE: Single frontal view of the chest is obtained. FINDINGS: Endotracheal tube and NG tube are again noted and are overlying appropriate positions. Eileen ear opacities at the lung bases are again noted. There are overlying cardiac leads. Heart is enlarged . Prominence of the pulmonary arteries could be indicative of pulmonary artery hypertension. No evide nt pneumothorax or pleural effusion. The aorta is dense. IMPRESSION: Findings are stable. Emphysema, some minimal basilar atelectasis suspected. Prominent he art size appearance may be at least in part due to technique.
[2019-10-20] MEDS ORDERED: FUROSEMIDE 10 MG/ML 4 ML VIAL IV STA (08:37)
[2019-10-20] MEDS ORDERED: PANTOPRAZOLE 40 MG/10 ML VIAL IV SCH (09:00)
[2019-10-20] MEDS: methylPREDNISolone SOD SUCCI 40 MG/ML 1 ML VIAL IV SCH ×3 (09:23→20:33)
[2019-10-20] MEDS: ISOSORBIDE MONONITRATE ER 60 MG TAB.ER.24H PO SCH ×2 (09:23→20:33)
[2019-10-20] MEDS: SODIUM CHLORIDE 0.9% 1,000 ML IV SCH (09:24)
[2019-10-20] MEDS: METOPROLOL SUCCINATE (ER) 100 MG TAB.ER.24H PO SCH (09:24)
--- NOTE | 2019-10-20 12:29 | P.CNPUL ---
History of Present Illness Consult date: 10/20/19 Reason for consult: other (Acute hypoxic and hypercapnic respiratory failure) Chief complaint: Chest pain History of present illness: This is a 58-year-old white male, familiar to my service, known history of severe COPD, saw the patient for the first time on 07/03/2017, and I saw him back then mostly for an acute exacerbation of COPD. Patient was treated mostly with bronchodilators, antibiotics, steroids, and he was discharged home. Since then I have seen the patient on outpatient basis, and the last evaluation was via phone visit/telemedicine about 2 weeks ago. Patient had mostly symptoms of COPD exacerbation, treated with prednisone and doxycycline and advised to continue his bronchodilators. He was also advised to stop smoking. At any rate on 10/16/19, patient presented to the emergency room with chest pain consistent with acute coronary syndrome. He was seen by cardiology on consultation, and the pa clau had a previous stenting of the left circumflex coronary artery. Patient was treated with aspirin, heparin, nitroglycerin, and he underwent cardiac catheterization by Dr. Camilo. This was done on 10/18, and the patient underwent stenting of the first obtuse marginal branch of the left circumflex. This was successful, patient was placed on dual antiplatelet therapy, and advised to have aggressive cholesterol control. Last night, the patient developed worsening pulmonary status, he was noted to have profound shortness of breath, and he became obtunded with significant hypercapnia and hypoxia. Tried on BiPAP, and apparently his ABG was getting worse. Hence I was notified about this patient, and I recommended immediate transfer to the intensive care unit and intubation. Patient was intubated, and I was asked to see him on consultation. ABG before intubation showed a pO2 of 84, pCO2 of 120 and pH of 7.16. This morning ABG showed a pO2 of 53 pCO2 of 63 and pH of 7.40. Hence his FiO2 was increased from 60% to 70%, and his PEEP was increased to 8. Patient is now on mechanical ventilation, and his assist-control rate is 28, tidal volume is 500, FiO2 is 70%, and PEEP is 8. Chest x-ray showed evidence of interstitial edema, hence I recommended Lasix 40 mg IV push 1. And I cut down his IV fluid to KVO. Patient is on propofol at 60 mcg/kg/m, he was on norepinephrine which has been discontinued after the patient responded to fluid boluses last night. Review of Systems ROS unobtainable: due to endotracheal tube Past Medical History Past Medical History: Asthma, Coronary Artery Disease (CAD), Cancer, Heart Failure, COPD, GERD/Reflux, Hyperlipidemia, Hypertension, Myocardial Infarction ([place]), Pneumonia, Prostate Disorder, Pulmonary Embolus (PE) Additional Past Medical History / Comment(s): Chronic CHF, bronchitis, L lung PE, prostate cancer with surgery, IDDM type II with peripheral neuropathy biltateral arms/hands/legs and feet, R leg ORIF with post op life support/wound dehiscence-debridements/skin grafting-now healed, bilateral lower extremity edema at times, SAMIR-does not use CPap d/t no way to clean it, home oxygen which pt states he is to wear 2-2.5L/NC ATC, past coccyx fracture, sinus infections. Last Myocardial Infarction Date:: History of Any Multi-Drug Resistant Organisms: MRSA, VRE Date of last positivie culture/infection: 09/2017 MDRO Source:: right leg Past Surgical History: Heart Catheterization, Heart Catheterization With Stent, Orthopedic Surgery, Prostate Surgery Additional Past Surgical History / Comment(s): R leg trauma/ORIF, dehiscence R leg/debridements/wound vac/skin grafting, prostatectomy. Past Anesthesia/Blood Transfusion Reactions: Previous Problems w/ Anesthesia Additional Past Anesthesia/Blood Transfusion Reaction / Comment(s): states post op for orif of leg at [facility], was on life support, also states unable to lay flat related to COPD Date of Last Stent Placement:: 2018 Past Psychological History: Anxiety, Depression Additional Psychological History / Comment(s): Pt resides alone in an apartment but states his girlfriend is there most times. He uses a cane or walker to ambulate. He does not drive much, his girlfriend drives. He has home oxygen, nebulizer, glucometer and a CPap which he doesn't use because he states he has no way to clean it. Smoking Status: Current every day smoker Past Alcohol Use History: Occasional Additional Past Alcohol Use History / Comment(s): Pt started smoking in 1971 and is a 1 ppd smoker. Past Drug Use History: Marijuana Additional Drug Use History / Comment(s): occasional use - Past Family History Mother Family Medical History: COPD, Vascular Disorder Additional Family Medical History / Comment(s): Mother is . She had AAA. Father Family Medical History: Cancer Additional Family Medical History / Comment(s): : lung ca with brain mets. Medications and Allergies Home Medications Medication Instructions Recorded Confirmed Type Budesonide/Formoterol Fumarate 2 puff INHALATION RT-BID 02/10/15 10/16/19 History [Symbicort 160-4.5 Mcg Inhaler] Nitroglycerin Sl Tabs [Nitrostat] 0.4 mg SUBLINGUAL Q5M PRN 02/10/15 10/16/19 History Omeprazole [PriLOSEC] 20 mg PO AC-BID 02/10/15 10/16/19 History Cholecalciferol [Vitamin D3 (25 1,000 unit PO DAILY 03/02/19 10/16/19 History Mcg = 1000 Iu)] Cyanocobalamin (Vitamin B-12) 1,000 mcg PO DAILY 03/02/19 10/16/19 History [Vitamin B-12] Loratadine 10 mg PO DAILY 03/02/19 10/16/19 History Tiotropium 18 Mcg/Puff [Spiriva] 1 cap INHALATION RT-DAILY 03/02/19 10/16/19 History Clopidogrel [Plavix] 75 mg PO DAILY #30 tablet 03/04/19 10/16/19 Rx Furosemide [Lasix] 40 mg PO BID #60 tab 03/04/19 10/16/19 Rx Insulin Glargine,Hum.rec.anlog 10 unit SQ DAILY 05/30/19 10/16/19 History [Lantus Solostar] Rivaroxaban [Xarelto] 15 mg PO DAILY 05/30/19 10/16/19 History Lisinopril [Zestril] 2.5 mg PO DAILY #30 tab 06/01/19 10/16/19 Rx Isosorbide Mononitrate ER [Imdur] 60 mg PO BID #60 tab 08/29/19 10/16/19 Rx Vascepa 1gm 2 gm PO DAILY 08/29/19 10/16/19 History Albuterol Inhaler [Ventolin Hfa 2 puff INHALATION RT-QID PRN 10/16/19 10/16/19 History Inhaler] Metoprolol Succinate [Toprol XL] 100 mg PO DAILY 10/16/19 10/16/19 History Nicotine 21Mg/24Hr Patch [Habitrol] 1 each TRANSDERM DAILY 10/16/19 10/16/19 History Allergies Allergy/AdvReac Type Severity Reaction Status Date / Time latex Allergy Itching/red Verified 10/16/19 16:09 skin pregabalin [From Lyrica] Allergy Dyspnea Verified 10/16/19 16:09 venom-honey bee Allergy Unknown Verified 10/16/19 16:09 [bee venom (honey bee)] atorvastatin AdvReac MUSCLE PAIN Verified 10/16/19 16:09 isosorbide mononitrate AdvReac HEADACHES Verified 10/16/19 16:09 [From Imdur] prednisone AdvReac "caused Verified 10/16/19 18:08 shoulder pain" per patient rosuvastatin calcium AdvReac MUSCLE PAIN Verified 10/16/19 16:09 [From Crestor] tramadol AdvReac SUICIDAL Verified 10/16/19 16:09 THOUGHTS venlafaxine AdvReac SUICIDAL Verified 10/16/19 16:09 THOUGHTS Physical Exam Vitals: Vital Signs Temp Pulse Pulse Pulse Resp BP BP 10/20/19 11:37 90 10/20/19 11:24 89 10/20/19 10:00 88 28 H 10/20/19 09:00 89 30 H 116/69 10/20/19 08:00 98.9 F 89 28 H 115/68 10/20/19 07:40 87 10/20/19 07:30 86 10/20/19 07:00 89 28 H 114/62 10/20/19 06:50 89 28 H 114/62 10/20/19 06:40 87 28 H 114/62 10/20/19 06:30 89 27 H 114/62 10/20/19 06:20 89 28 H 114/62 10/20/19 06:10 92 28 H 114/62 10/20/19 06:00 92 28 H 142/76 10/20/19 05:50 92 28 H 142/76 10/20/19 05:40 93 4 L 142/76 10/20/19 05:30 96 41 H 142/76 10/20/19 05:20 100 17 142/76 10/20/19 05:10 94 28 H 142/76 10/20/19 05:00 90 27 H 134/72 05/20/20 04:50 88 27 H 134/72 05/20/20 04:40 89 27 H 134/72 05/20/20 04:30 88 22 134/72 05/20/20 04:24 99.2 F 05/20/20 04:20 87 28 H 134/72 05/20/20 04:10 87 29 H 134/72 05/20/20 04:00 99.2 F 82 28 H 116/60 05/20/20 03:59 83 05/20/20 03:50 85 28 H 116/60 05/20/20 03:47 84 05/20/20 03:40 83 9 L 116/60 05/20/20 03:30 87 29 H 116/60 05/20/20 03:20 81 28 H 116/60 05/20/20 03:10 80 28 H 116/60 05/20/20 03:00 78 28 H 112/61 05/20/20 02:50 79 28 H 112/61 05/20/20 02:40 77 28 H 112/61 05/20/20 02:30 79 28 H 112/61 05/20/20 02:20 81 27 H 112/61 05/20/20 02:10 81 28 H 112/61 05/20/20 02:00 83 28 H 114/61 05/20/20 01:50 82 28 H 114/61 05/20/20 01:40 82 28 H 115/62 05/20/20 01:30 81 28 H 103/59 05/20/20 01:20 82 28 H 111/63 05/20/20 01:10 77 27 H 109/67 05/20/20 01:00 77 28 H 106/62 05/20/20 00:50 76 28 H 108/65 05/20/20 00:40 76 28 H 107/64 05/20/20 00:30 79 28 H 101/60 05/20/20 00:20 79 28 H 105/63 05/20/20 00:10 80 28 H 103/58 05/20/20 00:00 98.5 F 80 28 H 102/58 05/19/20 23:50 81 28 H 98/58 05/19/20 23:46 81 05/19/20 23:40 81 28 H 114/63 05/19/20 23:30 86 14 100/61 05/19/20 23:27 84 10/19/19 23:20 82 28 H 102/55 10/19/19 23:14 83 28 H 101/55 10/19/19 23:10 83 28 H 105/55 10/19/19 23:00 83 28 H 113/63 10/19/19 22:50 80 28 H 106/66 10/19/19 22:40 78 0 L 112/62 10/19/19 22:30 81 5 L 104/60 10/19/19 22:20 84 2 L 102/53 10/19/19 22:10 89 0 L 98/62 10/19/19 22:00 90 5 L 96/52 10/19/19 21:50 96 0 L 82/45 10/19/19 21:40 98 0 L 84/44 10/19/19 21:30 101 H 12 90/45 10/19/19 21:20 101 H 5 L 102/52 10/19/19 21:10 103 H 7 L 95/61 10/19/19 21:02 99.1 F 103 H 0 L 99/52 10/19/19 18:32 24 177/99 10/19/19 18:21 85 28 H 10/19/19 18:12 85 28 H 10/19/19 18:02 89 18 170/90 10/19/19 17:32 80 18 165/94 10/19/19 17:17 88 87 160/96 10/19/19 17:02 87 28 H 154/89 10/19/19 16:47 84 22 147/78 10/19/19 16:26 172/90 10/19/19 16:14 84 139/94 10/19/19 15:46 18 10/19/19 14:14 168/98 10/19/19 12:36 169/76 10/19/19 12:12 168/77 BP Pulse Ox 10/20/19 11:37 10/20/19 11:24 10/20/19 10:00 92 L 10/20/19 09:00 91 L 10/20/19 08:00 89 L 10/20/19 07:40 10/20/19 07:30 10/20/19 07:00 88 L 10/20/19 06:50 88 L 10/20/19 06:40 88 L 05/20/20 06:30 88 L 10/20/19 06:20 88 L 10/20/19 06:10 88 L 10/20/19 06:00 88 L 10/20/19 05:50 88 L 10/20/19 05:40 88 L 10/20/19 05:30 89 L 10/20/19 05:20 82 L 10/20/19 05:10 88 L 10/20/19 05:00 88 L 10/20/19 04:50 89 L 10/20/19 04:40 88 L 10/20/19 04:30 88 L 10/20/19 04:24 10/20/19 04:20 89 L 10/20/19 04:10 89 L 10/20/19 04:00 89 L 10/20/19 03:59 10/20/19 03:50 90 L 10/20/19 03:47 10/20/19 03:40 90 L 10/20/19 03:30 93 L 10/20/19 03:20 89 L 10/20/19 03:10 89 L 10/20/19 03:00 88 L 10/20/19 02:50 88 L 10/20/19 02:40 88 L 10/20/19 02:30 88 L 10/20/19 02:20 89 L 10/20/19 02:10 89 L 10/20/19 02:00 88 L 10/20/19 01:50 89 L 10/20/19 01:40 89 L 10/20/19 01:30 88 L 10/20/19 01:20 89 L 10/20/19 01:10 88 L 10/20/19 01:00 89 L 10/20/19 00:50 89 L 10/20/19 00:40 89 L 10/20/19 00:30 89 L 10/20/19 00:20 88 L 10/20/19 00:10 88 L 10/20/19 00:00 89 L 10/19/19 23:50 89 L 10/19/19 23:46 10/19/19 23:40 91 L 10/19/19 23:30 84 L 10/19/19 23:27 10/19/19 23:20 89 L 10/19/19 23:14 89 L 10/19/19 23:10 89 L 10/19/19 23:00 88 L 10/19/19 22:50 91 L 10/19/19 22:40 100 10/19/19 22:30 100 10/19/19 22:20 10/19/19 22:10 98 10/19/19 22:00 97 10/19/19 21:50 98 10/19/19 21:40 98 10/19/19 21:30 97 10/19/19 21:20 97 10/19/19 21:10 94 L 10/19/19 21:02 97 10/19/19 18:32 90 L 10/19/19 18:21 10/19/19 18:12 10/19/19 18:02 88 L 10/19/19 17:32 91 L 10/19/19 17:17 88 L 10/19/19 17:02 88 L 10/19/19 16:47 89 L 10/19/19 16:26 10/19/19 16:14 160/90 91 L 10/19/19 15:46 10/19/19 14:14 10/19/19 12:36 10/19/19 12:12 Intake and Output 10/19/19 10/20/19 10/20/19 22:59 06:59 14:59 Intake Total 3466.993 7381.167 431.56 Output Total 3550 740 1335 Balance -2320.267 412.167 -903.44 Intake: IV 1225 609 225 A Line 9 15 Sodium Chloride 0.9% 1, 225 600 210 000 ml @ 75 mls/hr IV . [id number] [facility] Rx#:[id number] Sodium Chloride 0.9% 1, 1000 000 ml @ 999 mls/hr IV . Q1H1M [facility] Rx#:[id number] Intake, IV Titration 4.733 543.167 206.56 Amount Clevidipine Butyrate 25 2.733 mg In Empty Bag 1 bag @ 1 MG/HR 2 mls/hr IV .Q24H [facility] Rx#:[id number] Norepinephrine 4 mg In 2 301.957 Sodium Chloride 0.9% 250 ml @ 0.05 MCG/KG/MIN 24. 003 mls/hr IV .[id number] [facility] Rx#:[id number] Propofol 1,000 mg In 241.210 206.56 Empty Bag 1 bag @ Titrate IV .Q0M [facility] Rx#: [id number] Output: Urine 3550 740 1335 Other: Voiding Method Indwelling Catheter Indwelling Catheter # Bowel Movements 1 Weight 127 kg ABP, PAP, CO, CI - Last 8 Hours Arterial Blood Pressure 122/65 Arterial Blood Pressure 110/59 Arterial Blood Pressure 110/61 Arterial Blood Pressure 102/59 Arterial Blood Pressure 104/60 Arterial Blood Pressure 115/62 Arterial Blood Pressure 114/62 Arterial Blood Pressure 98/55 Arterial Blood Pressure 98/55 Arterial Blood Pressure 106/58 Arterial Blood Pressure 105/57 Arterial Blood Pressure 114/60 Arterial Blood Pressure 116/61 Arterial Blood Pressure 140/72 Arterial Blood Pressure 126/65 Arterial Blood Pressure 136/74 Arterial Blood Pressure 117/64 Arterial Blood Pressure 115/64 Arterial Blood Pressure 120/66 Arterial Blood Pressure 120/65 GENERAL EXAM: Revealed a 58-year-old white male intubated and mechanically ventilated. HEAD: Normocephalic/atraumatic. Endotracheal tube and orogastric tube are intact. EYES: Normal reaction of pupils, equal size. Conjunctiva pink, sclera white. NOSE: Clear with pink turbinates. THROAT: No erythema or exudates. NECK: No masses, no JVD, no thyroid enlargement, no adenopathy. CHEST: Symmetrical chest expansion. LUNGS: Crackles and rhonchi and wheezes bilaterally. CVS: Regular rate and rhythm, normal S1 and S2, no gallops, no murmurs, no rubs ABDOMEN: Obese, Soft, nontender. No hepatosplenomegaly, normal bowel sounds, no guarding or rigidity. EXTREMITIES: No clubbing, 1+ edema in bilateral lower extremities, no cyanosis, 2+ pulses and upper and lower extremities. MUSCULOSKELETAL: No deformities. SPINE: No scoliosis or deformity SKIN: No rashes CENTRAL NERVOUS SYSTEM: Patient is sedated on propofol, could not be assessed. PSYCHIATRIC: Could not be assessed. Results - Laboratory Findings CBC and BMP: 10/20/19 05:33 10/20/19 05:33 ABG ABG pH 7.40 (7.35-7.45) 10/20/19 07:06 ABG pCO2 63 mmHg (35-45) H 10/20/19 07:06 ABG pO2 53 mmHg (83-108) L* 10/20/19 07:06 ABG O2 Saturation 88.1 % (94-97) L 10/20/19 07:06 PT/INR, D-dimer PT 11.0 sec (9.0-12.0) 10/16/19 12:49 INR 1.1 (<1.2) 10/16/19 12:49 Abnormal lab findings: Abnormal Labs 10/16/19 10/16/19 10/16/19 12:49 12:49 12:49 Hct MCHC 30.9 L RDW 17.6 H Plt Count Neutrophils # Lymphocytes # APTT ABG pH ABG pCO2 ABG pO2 ABG HCO3 ABG Total CO2 ABG O2 Saturation Sodium 130 L Potassium Chloride 91 L Carbon Dioxide Glucose 263 H POC Glucose (mg/dL) Plasma Lactic Acid Omid ALT Troponin I 0.094 H* Total Protein Triglycerides Cholesterol HDL Cholesterol 10/16/19 10/16/19 10/16/19 16:33 19:36 20:18 Hct MCHC RDW Plt Count Neutrophils # Lymphocytes # APTT ABG pH ABG pCO2 ABG pO2 ABG HCO3 ABG Total CO2 ABG O2 Saturation Sodium Potassium Chloride Carbon Dioxide Glucose POC Glucose (mg/dL) 179 H 183 H Plasma Lactic Acid Omid ALT Troponin I 0.099 H* Total Protein Triglycerides Cholesterol HDL Cholesterol 10/17/19 10/17/19 10/17/19 01:35 03:57 03:57 Hct MCHC RDW Plt Count 135 L Neutrophils # Lymphocytes # APTT ABG pH ABG pCO2 ABG pO2 ABG HCO3 ABG Total CO2 ABG O2 Saturation Sodium 129 L Potassium 5.2 H Chloride 93 L Carbon Dioxide Glucose 173 H POC Glucose (mg/dL) Plasma Lactic Acid Omid ALT Troponin I 0.095 H* Total Protein Triglycerides 635 H Cholesterol 201 H HDL Cholesterol 27 L 10/17/19 10/17/19 10/17/19 03:57 06:10 10:41 Hct MCHC RDW Plt Count Neutrophils # Lymphocytes # APTT 31.7 H 31.9 H ABG pH ABG pCO2 ABG pO2 ABG HCO3 ABG Total CO2 ABG O2 Saturation Sodium Potassium Chloride Carbon Dioxide Glucose POC Glucose (mg/dL) 158 H Plasma Lactic Acid Omid ALT Troponin I Total Protein Triglycerides Cholesterol HDL Cholesterol 10/17/19 10/17/19 10/17/19 11:38 16:38 19:06 Hct MCHC RDW Plt Count Neutrophils # Lymphocytes # APTT 40.6 H ABG pH ABG pCO2 ABG pO2 ABG HCO3 ABG Total CO2 ABG O2 Saturation Sodium Potassium Chloride Carbon Dioxide Glucose POC Glucose (mg/dL) 245 H 196 H Plasma Lactic Acid Omid ALT Troponin I Total Protein Triglycerides Cholesterol HDL Cholesterol 10/17/19 10/18/19 10/18/19 20:04 04:40 04:40 Hct MCHC RDW Plt Count 129 L Neutrophils # Lymphocytes # APTT ABG pH ABG pCO2 ABG pO2 ABG HCO3 ABG Total CO2 ABG O2 Saturation Sodium 130 L Potassium Chloride 92 L Carbon Dioxide Glucose 159 H POC Glucose (mg/dL) 255 H Plasma Lactic Acid Omid ALT Troponin I Total Protein Triglycerides Cholesterol HDL Cholesterol 10/18/19 10/18/19 10/18/19 04:40 06:10 11:54 Hct MCHC RDW Plt Count Neutrophils # Lymphocytes # APTT 49.2 H ABG pH ABG pCO2 ABG pO2 ABG HCO3 ABG Total CO2 ABG O2 Saturation Sodium Potassium Chloride Carbon Dioxide Glucose POC Glucose (mg/dL) 156 H 125 H Plasma Lactic Acid Omid ALT Troponin I Total Protein Triglycerides Cholesterol HDL Cholesterol 10/18/19 10/19/19 10/19/19 20:26 05:57 05:57 Hct MCHC RDW Plt Count 149 L Neutrophils # Lymphocytes # APTT ABG pH ABG pCO2 ABG pO2 ABG HCO3 ABG Total CO2 ABG O2 Saturation Sodium 130 L Potassium Chloride 88 L Carbon Dioxide 36 H Glucose 117 H POC Glucose (mg/dL) 104 H Plasma Lactic Acid Omid ALT Troponin I Total Protein Triglycerides Cholesterol HDL Cholesterol 10/19/19 10/19/19 10/19/19 06:24 18:21 18:29 Hct MCHC RDW Plt Count Neutrophils # Lymphocytes # APTT ABG pH 7.27 L ABG pCO2 92 H* ABG pO2 67 L ABG HCO3 42 H* ABG Total CO2 45 H ABG O2 Saturation 91.0 L Sodium Potassium Chloride Carbon Dioxide Glucose POC Glucose (mg/dL) 132 H 118 H Plasma Lactic Acid Omid ALT Troponin I Total Protein Triglycerides Cholesterol HDL Cholesterol 10/19/19 10/19/19 10/19/19 19:33 19:59 20:30 Hct 53.4 H MCHC 30.8 L RDW 17.2 H Plt Count Neutrophils # 8.0 H Lymphocytes # 0.8 L APTT ABG pH 7.16 L* ABG pCO2 >120 H* ABG pO2 ABG HCO3 ABG Total CO2 ABG O2 Saturation 93.5 L Sodium Potassium Chloride Carbon Dioxide Glucose POC Glucose (mg/dL) 168 H Plasma Lactic Acid Omid ALT Troponin I Total Protein Triglycerides Cholesterol HDL Cholesterol 10/19/19 10/19/19 10/19/19 20:30 20:30 21:09 Hct MCHC RDW Plt Count Neutrophils # Lymphocytes # APTT ABG pH 7.17 L* ABG pCO2 119 H* ABG pO2 ABG HCO3 43 H* ABG Total CO2 47 H ABG O2 Saturation Sodium 131 L Potassium 5.9 H Chloride 81 L Carbon Dioxide 41 H* Glucose 169 H POC Glucose (mg/dL) Plasma Lactic Acid Omid 0.6 L ALT 63 H Troponin I Total Protein 8.4 H Triglycerides Cholesterol HDL Cholesterol 10/19/19 10/20/19 10/20/19 22:30 05:33 05:33 Hct MCHC RDW 17.4 H Plt Count 140 L Neutrophils # Lymphocytes # 0.7 L APTT ABG pH 7.29 L ABG pCO2 87 H* ABG pO2 152 H ABG HCO3 42 H* ABG Total CO2 45 H ABG O2 Saturation 99.2 H Sodium 130 L Potassium Chloride 86 L Carbon Dioxide 37 H Glucose 151 H POC Glucose (mg/dL) Plasma Lactic Acid Omid ALT Troponin I Total Protein Triglycerides Cholesterol HDL Cholesterol 10/20/19 07:06 Hct MCHC RDW Plt Count Neutrophils # Lymphocytes # APTT ABG pH ABG pCO2 63 H ABG pO2 53 L* ABG HCO3 39 H ABG Total CO2 41 H ABG O2 Saturation 88.1 L Sodium Potassium Chloride Carbon Dioxide Glucose POC Glucose (mg/dL) Plasma Lactic Acid Omid ALT Troponin I Total Protein Triglycerides Cholesterol HDL Cholesterol - Diagnostic Findings Chest x-ray: image reviewed (Chest x-ray this morning is suggestive of bibasilar atelectasis and mild interstitial edema.) Assessment and Plan Assessment: Impression: Acute hypoxic and hypercapnic respiratory failure secondary to severe COPD exac erbation and suspect acute on chronic diastolic congestive heart failure. Acute non-ST elevation myocardial infarction, status post stenting of first obtuse marginal branch of left circumflex. History of severe peripheral neuropathy History of previous myocardial infarction and underlying coronary artery disease Nicotine dependence syndrome. History of prostate cancer, radical prostatectomy in 2001 History of dyslipidemia History of pulmonary embolism History of obstructive sleep apnea syndrome noncompliant with CPAP. History of type 2 diabetes with peripheral neuropathy History of GERD and esophagitis History of benign essential hypertension Recommendation: Continue ventilatory support Continue cardiac meds Continue bronchodilators and steroids Continue GI and DVT prophylaxis Continue enteral feeding Continue diuretics Continue dual antiplatelet therapy Continue insulin for glucose control. We'll continue to follow. Patient will likely need central line placement today, and we will likely do it later this afternoon. Prognosis is definitely guarded. Time with Patient: Greater than 30
--- NOTE | 2019-10-20 14:36 | PN ---
PROGRESS NOTE This is a 58-year-old gentleman who is admitted to hospital with acute coronary syndrome and underwent cardiac catheterization and multivessel angioplasty. Yesterday he had stenting of the OM branch, on his initial presentation had stent of right coronary artery. Patient developed progressively worsening shortness of breath and confusion and was found to be in respiratory failure for which he was intubated and is currently on a vent. Chest x-ray shows changes of emphysema physical. PHYSICAL EXAM: That the heart rate is 90 beats per minute, blood pressure is 100/65, respiratory is 28. Chest exam reveals diminished air entry bilaterally. Heart exam reveals first and second heart sounds. No gallop. Exam of extremities did not reveal any edema. LABS: Show a potassium of 5.1, creatinine is 0.8, hemoglobin is 15.4, platelet count is 140. ASSESSMENT: 1. Respiratory failure. 2. Non ST-segment elevation myocardiali infarction, status post catheterization and angioplasty. 3. History of pulmonary embolism. PLAN: Continue aspirin, Plavix, Zestril, Toprol, and the patient was on Xarelto, which should be resumed now. Labs show that the hemoglobin is 15.4. MMODL / IJN: [id number] /
[2019-10-20] MEDS: RIVAROXABAN 15 MG TAB PO SCH (16:44)
--- NOTE | 2019-10-20 17:58 | P.PN ---
Subjective This is a pleasant 58 years old -[place] male with past medical history of chronic heart failure, coronary artery disease status post stent, COPD, GERD, hypertension, hyperlipidemia, pulmonary embolism, prostate cancer, type 2 diabetes mellitus with diabetic neuropathy and arms and legs, on home oxygen 2- 2.5 L via nasal cannula. His PCP is kymberly jackman and his care companion is Dr. Camilo. Presents with chest pain felt like burning in the center radiating to the face and back 4 days duration about 7/10 in severity, for similar to his chest pain before when he had heart attacks. It with exertional dyspnea and some digital dry coughing. He still smokes about 1 pack per day, patient is counseled and he agrees to nicotine patch, no alcohol or illicit drugs other than weed Vitals are stable. Labs show an unremarkable CBC, INR. BMP showing sodium 1:30, creatinine normal 0.6, glucose is elevated 263, troponin is elevated 0.09. Chest x-ray: No acute process, COPD and atelectasis EKG showing normal sinus rhythm at 90 bpm with no significant ST-T changes On admission patient was placed on heparin drip and started on aspirin 325 mg daily 10/17/2019 Patient is still complaining of from exertional dyspnea but no chest pain, I s till have coughing with little phlegm Hemodynamically stable. showing sodium of 129, slightly worse than yesterday 130, potassium 5.2, glucose 245, Distal on heparin drip and Xarelto is on hold, Is also on aspirin or Plavix With the patient on fluid restriction 1500 ml/day Cardiology clinic for cardiac cath tomorrow 10/18/2019 Patient underwent coronary angiogram and PCI with successful stenting of the mid RCA. Postprocedure patient was lying in bed not in distress. Vitals and labs were reviewed 10/19/2019 Patient is status post coronary angiogram and stenting of his mid RCA, however as per discussion with cardiology team he might need another stent. He was started on aspirin and Plavix and importance of antacid therapy is explained to him and he agrees I discussed the case with the patient in the morning, he was sitting comfortable in chair and was asking to be discharged today however later on developed chest pain radiating to the left arm and it was decided the patient to go to another cardiac cath today. Patient confirms to me that he is on Xarelto 15 mg daily and he was just taken before coming to the hospital, he confirmed to me he has a prescription for it at home. Also he confirms to me that he is on home oxygen for his COPD, about 2-3 L. Sodium 130, lipase 149 improving. Sugar controlled 09/20/2019 Patient developed chest pain and patient was taken to emergent cardiac cath by cardiology team post-procedure patient developed respiratory distress and went to the ICU where he got intubated for acute hypoxic hypercapnic respiratory failure. Also patient was needed to be placed on Levophed last night however this was stopped this morning. ABG this morning shows pH of 7.4, pCO2 63, pO2 of 53. Sodium is 130, potassium 5.1, creatinine 0.8. CBC is unremarkable. Chest x-ray showing stable emphysema with minimal atelectasis.i reviewed the cxr myself and compared it with cxr from 03/2019 and it looked very similar Patient remains on aspirin and Plavix, Xarelto is added tonight by cardiology team. He got 1 dose of Lasix, started also on soluMedrol 40 mg twice daily and Protonix 40 mg IV twice daily Patient remains in critical condition in the ICU Review of Systems: N/a, patient could not provide information Active Medications Generic Name Dose Route Start Last Admin Trade Name Freq PRN Reason Stop Dose Admin Al Hydroxide/Mg Hydroxide 30 ml 10/18/19 11:06 Maalox PO Q4HR PRN Heartburn Albuterol/Ipratropium 3 ml 10/20/19 00:00 10/20/19 11:15 Duoneb 0.5 Mg-3 Mg/3 Ml Soln INHALATION 3 ml RT-Q4H CHUY Administration Aspirin 81 mg 10/18/19 09:00 10/20/19 08:12 Aspirin PO 81 mg DAILY CHUY Administration Atropine Sulfate 0.5 mg 10/18/19 11:06 Atropine IV ONCE PRN Symptomatic Bradycardia Chlorhexidine Gluconate 15 ml 10/20/19 09:00 10/20/19 08:12 Peridex MUCOUS MEM 15 ml BID CHUY Administration Cholecalciferol 1,000 unit 10/17/19 09:00 10/20/19 08:12 Vitamin D3 (25 Mcg = 1000 Iu) PO 1,000 unit DAILY CHUY Administration Clopidogrel Bisulfate 75 mg 10/17/19 09:00 10/20/19 08:13 Plavix PO 75 mg DAILY CHUY Administration Cyanocobalamin 1,000 mcg 10/17/19 09:00 10/20/19 08:13 Vitamin B-12 PO 1,000 mcg DAILY CHUY Administration Famotidine 20 mg 10/19/19 21:00 10/20/19 08:13 Pepcid PO 20 mg Q12HR CHUY Administration Hydromorphone HCl 0.5 mg 10/19/19 13:05 10/19/19 16:31 Dilaudid IVP 0.5 mg Q4HR PRN Administration Pain Propofol 1,000 mg/ IV Solution 100 mls @ 0 mls/hr 10/19/19 21:15 10/20/19 10:46 IV 60 mcg/kg/min .Q0M CHUY 45.72 mls/hr Administration Protocol Titrate Sodium Chloride 1,000 mls @ 20 mls/hr 10/19/19 22:00 10/20/19 09:24 Saline 0.9% IV 20 mls/hr .Q24H CHUY Administration Norepinephrine Bitartrate 4 mg 254 mls @ 24.003 mls/hr 10/19/19 22:00 10/20/19 05:09 / Sodium Chloride IV 0 mcg/kg/min .[id number] CHUY 0 mls/hr Titration Protocol 0.05 MCG/KG/MIN Insulin Detemir 10 unit 10/17/19 09:00 10/20/19 08:13 Levemir SQ 10 unit DAILY CHUY Administration Isosorbide Mononitrate 60 mg 10/16/19 21:00 10/20/19 09:23 Imdur PO Not Given BID [facility] Lisinopril 2.5 mg 10/17/19 09:00 10/20/19 08:12 Zestril PO 2.5 mg DAILY CHUY Administration Loratadine 10 mg 10/17/19 09:00 10/20/19 08:12 Claritin PO 10 mg DAILY CHUY Administration Methylprednisolone Sodium Succinate 40 mg 10/20/19 09:00 10/20/19 09:23 Solu-Medrol IV 40 mg Q6H CHUY Administration Metoprolol Succinate 100 mg 10/17/19 09:00 10/20/19 09:24 Toprol Xl PO Not Given DAILY CHUY Miscellaneous Information 1 each 10/19/19 11:29 Rx Info: Iv Contrast Was Given MISCELLANE 10/21/19 11:29 DAILY PRN Per Protocol Naloxone HCl 0.2 mg 10/19/19 19:58 Narcan IV Q2M PRN Opioid Reversal Nicotine 1 patch 10/16/19 16:45 10/20/19 08:13 Habitrol 21mg/24hr Patch TRANSDERM 1 patch DAILY CHUY Administration Nitroglycerin 0.4 mg 10/16/19 20:24 10/17/19 20:48 Nitrostat SUBLINGUAL 0.4 mg Q5M PRN Administration Chest Pain Pantoprazole Sodium 40 mg 10/20/19 21:00 Protonix IVP BID [facility] Rivaroxaban 15 mg 10/20/19 17:30 Xarelto PO W/SUPPER [facility] Objective - Vital Signs Vital signs: Vital Signs Temp 98.9 F 10/20/19 08:00 Pulse 90 10/20/19 11:37 Resp 28 H 10/20/19 10:00 BP 116/69 10/20/19 09:00 Pulse Ox 92 L 10/20/19 10:00 Intake & Output 10/19/19 10/20/19 10/20/19 18:59 06:59 18:59 Intake Total 378 2381.900 431.56 Output Total 2325 1965 1335 Balance -1947 416.900 -903.44 Weight 127 kg Intake: IV 138 1834 225 A Line 9 15 Sodium Chloride 0.9% 1, 825 210 000 ml @ 75 mls/hr IV . [id number] [facility] Rx#:[id number] Sodium Chloride 0.9% 1, 1000 000 ml @ 999 mls/hr IV . Q1H1M [facility] Rx#:[id number] Intake, IV Titration 547.900 206.56 Amount Clevidipine Butyrate 25 2.733 mg In Empty Bag 1 bag @ 1 MG/HR 2 mls/hr IV .Q24H [facility] Rx#:[id number] Norepinephrine 4 mg In 303.957 Sodium Chloride 0.9% 250 ml @ 0.05 MCG/KG/MIN 24. 003 mls/hr IV .[id number] [facility] Rx#:[id number] Propofol 1,000 mg In 241.210 206.56 Empty Bag 1 bag @ Titrate IV .Q0M [facility] Rx#: [id number] Oral 240 Output: Urine 2325 1965 1335 Other: Voiding Method Indwelling Catheter Indwelling Catheter # Bowel Movements 1 ABP, PAP, CO, CI - Last Documented Arterial Blood Pressure 122/65 - Exam -GENERAL: The patient is intubated and sedated, not in respiratory acute distress. Obese HEENT: Pupils are round and equally reacting to light. EOMI. No scleral icterus. No conjunctival pallor. Normocephalic, atraumatic. No pharyngeal erythema. No thyromegaly. CARDIOVASCULAR: S1 and S2 present. No murmurs, rubs, or gallops. -PULMONARY: Chest is clear to auscultation, bilateral scattered wheezing or crackles. ABDOMEN: Soft, nontender, nondistended, normoactive bowel sounds. No palpable organomegaly. MUSCULOSKELETAL: No joint swelling or deformity. EXTREMITIES: No cyanosis, clubbing, or pedal edema. NEUROLOGICAL: Gross neurological examination did not reveal any focal deficits. SKIN: No rashes. no petechiae. - Labs CBC & Chem 7: 10/20/19 05:33 10/20/19 05:33 Labs: Abnormal Lab Results - Last 24 Hours (Table) 10/19/19 10/19/19 10/19/19 Range/Units 18:21 18:29 19:33 Hct (39.0-53.0) % MCHC (31.0-37.0) g/dL RDW (11.5-15.5) % Plt Count (150-450) k/uL Neutrophils # (1.3-7.7) k/uL Lymphocytes # (1.0-4.8) k/uL ABG pH 7.27 L (7.35-7.45) ABG pCO2 92 H* (35-45) mmHg ABG pO2 67 L (83-108) mmHg ABG HCO3 42 H* (21-25) mmol/L ABG Total CO2 45 H (19-24) mmol/L ABG O2 Saturation 91.0 L (94-97) % Sodium (137-145) mmol/L Potassium (3.5-5.1) mmol/L Chloride (98-107) mmol/L Carbon Dioxide (22-30) mmol/L Glucose (74-99) mg/dL POC Glucose (mg/dL) 118 H 168 H (75-99) mg/dL Plasma Lactic Acid Omid (0.7-2.0) mmol/L ALT (4-49) U/L Total Protein (6.3-8.2) g/dL 10/19/19 10/19/19 10/19/19 Range/Units 19:59 20:30 20:30 Hct 53.4 H (39.0-53.0) % MCHC 30.8 L (31.0-37.0) g/dL RDW 17.2 H (11.5-15.5) % Plt Count (150-450) k/uL Neutrophils # 8.0 H (1.3-7.7) k/uL Lymphocytes # 0.8 L (1.0-4.8) k/uL ABG pH 7.16 L* (7.35-7.45) ABG pCO2 >120 H* (35-45) mmHg ABG pO2 (83-108) mmHg ABG HCO3 (21-25) mmol/L ABG Total CO2 (19-24) mmol/L ABG O2 Saturation 93.5 L (94-97) % Sodium 131 L (137-145) mmol/L Potassium 5.9 H (3.5-5.1) mmol/L Chloride 81 L (98-107) mmol/L Carbon Dioxide 41 H* (22-30) mmol/L Glucose 169 H (74-99) mg/dL POC Glucose (mg/dL) (75-99) mg/dL Plasma Lactic Acid Omid (0.7-2.0) mmol/L ALT 63 H (4-49) U/L Total Protein 8.4 H (6.3-8.2) g/dL 10/19/19 10/19/19 10/19/19 Range/Units 20:30 21:09 22:30 Hct (39.0-53.0) % MCHC (31.0-37.0) g/dL RDW (11.5-15.5) % Plt Count (150-450) k/uL Neutrophils # (1.3-7.7) k/uL Lymphocytes # (1.0-4.8) k/uL ABG pH 7.17 L* 7.29 L (7.35-7.45) ABG pCO2 119 H* 87 H* (35-45) mmHg ABG pO2 152 H (83-108) mmHg ABG HCO3 43 H* 42 H* (21-25) mmol/L ABG Total CO2 47 H 45 H (19-24) mmol/L ABG O2 Saturation 99.2 H (94-97) % Sodium (137-145) mmol/L Potassium (3.5-5.1) mmol/L Chloride (98-107) mmol/L Carbon Dioxide (22-30) mmol/L Glucose (74-99) mg/dL POC Glucose (mg/dL) (75-99) mg/dL Plasma Lactic Acid Omid 0.6 L (0.7-2.0) mmol/L ALT (4-49) U/L Total Protein (6.3-8.2) g/dL 10/20/19 10/20/19 10/20/19 Range/Units 05:33 05:33 07:06 Hct (39.0-53.0) % MCHC (31.0-37.0) g/dL RDW 17.4 H (11.5-15.5) % Plt Count 140 L (150-450) k/uL Neutrophils # (1.3-7.7) k/uL Lymphocytes # 0.7 L (1.0-4.8) k/uL ABG pH (7.35-7.45) ABG pCO2 63 H (35-45) mmHg ABG pO2 53 L* (83-108) mmHg ABG HCO3 39 H (21-25) mmol/L ABG Total CO2 41 H (19-24) mmol/L ABG O2 Saturation 88.1 L (94-97) % Sodium 130 L (137-145) mmol/L Potassium (3.5-5.1) mmol/L Chloride 86 L (98-107) mmol/L Carbon Dioxide 37 H (22-30) mmol/L Glucose 151 H (74-99) mg/dL POC Glucose (mg/dL) (75-99) mg/dL Plasma Lactic Acid Omid (0.7-2.0) mmol/L ALT (4-49) U/L Total Protein (6.3-8.2) g/dL Microbiology - Last 24 Hours (Table) 10/20/19 04:10 Sputum Culture - Preliminary Sputum Assessment and Plan Assessment: Acute hypoxemic, hypercapnic respiratory failure. Need a mechanical vent ilation. Acute COPD exacerbation, with possible elements of obesity hypoventilation syndrome Non-STEMI, status post coronary angiogram and PCI with successful stenting of the mid RCA., And second coronary angiogram with stenting of first obtuse marginal branch of circumflex artery Hyponatremia, mostly pseudohyponatremia with elevated sugars Nicotine dependence Substance abuse wit marijuana Obesity with BMI of 37 type 2 diabetes mellitus with diabetic neuropathy and arms and legs, with hyperg lycemia Hypertension Hyperlipidemia Chronic heart failure Chronic hypoxic respiratory failure on 2-2.5 L via nasal cannula oxygen COPD, not an active issue GERD History of pulmonary embolism, on Xarelto 15 Jacqueline daily History of prostate cancer Plan: This is a pleasant 58 years old male who presents because of chest pain. Patient developed respiratory failure and got intubated and went to the ICU. Continue with pulmonary/critical care team consultation will manage and his event. Continue on aspirin, Plavix as per cardiology recommendation. Xarelto is restarted. Continue with steroids. Continue with Protonix. Labs and medication were reviewed.. Continue same treatment. Continue with symptomatic treatment. Resume home medication. Monitor lytes and vitals. DVT and GI prophylaxis. Further recommendations of the clinical course of the patient DVT prophylaxis: Xarelto GI Prophylaxis: Ppi Prognosis is guarded
--- NOTE | 2019-10-20 19:33 | PCN ---
PROCEDURE NOTE PROCEDURE PERFORMED: Placement of a right femoral triple-lumen catheter. PREOPERATIVE DIAGNOSIS: Acute hypoxic and hypercapnic respiratory failure. POSTOPERATIVE DIAGNOSIS: Acute hypoxic and hypercapnic respiratory failure. ANESTHESIA USED: 2 mL of 1% lidocaine. PROCEDURE IN DETAIL: The patient was placed in the supine position, the area of the right groin was prepared in a sterile fashion and drapes were applied. The right femoral vein was easily cannulated after anesthetizing the area locally with lidocaine and a guidewire was placed. The area around the guidewire was dilated. Then a triple-lumen catheter was inserted over the guidewire, and the guidewire was removed. Good blood flow noted in the 3 different ports of the triple-lumen catheter. Line was secured using 3.0 silk sutures. Again, no evidence of any immediate complications. MMODL / IJN: [id number] /
[2019-10-20] MEDS: PANTOPRAZOLE 40 MG/10 ML VIAL IVP SCH (20:32)
[2019-10-20] MEDS: METOPROLOL TARTRATE 50 MG TAB PO SCH (20:33)
[2019-10-20] MEDS: HYDROmorphone 0.5 MG/0.5 ML SYRINGE IVP PRN (20:50)
[2019-10-20] MEDS ORDERED: ENOXAPARIN 80 MG/0.8 ML SYRINGE SQ SCH (21:00)
[2019-10-21] MEDS: IPRATROPIUM-ALBUTEROL 3 ML NEB INHALATION SCH ×7 (00:11→23:10)
[2019-10-21] MEDS: PROPOFOL 1,000 MG in EMPTY BAG 1 BAG IV SCH ×9 (02:34→23:10)
[2019-10-21] MEDS: methylPREDNISolone SOD SUCCI 40 MG/ML 1 ML VIAL IV SCH ×4 (02:36→20:01)
[2019-10-21 05:17] LABS: African American GFR (CKD) >90 (>60 ml/min/1.73 sqM); Anion Gap 7 mmol/L; Blood Urea Nitrogen 26 mg/dL (9-20); Carbon Dioxide 36 mmol/L (22-30); Chloride 83 mmol/L (98-107); Glucose 226 mg/dL (74-99); Non-African American GFR(CKD) >90 (>60 ml/min/1.73 sqM); Potassium 4.7 mmol/L (3.5-5.1); Sodium 126 mmol/L (137-145)
[2019-10-21 05:39] LABS: Anisocytosis Slight; Basophils % (A) 0 %; Eosinophils % (A) 0 %; HCT 47.1 % (39.0-53.0); HGB 14.6 gm/dL (13.0-17.5); Lymphocytes # (A) 0.8 k/uL (1.0-4.8); Lymphocytes % (A) 5 %; MCH 28.8 pg (25.0-35.0); MCV 92.9 fL (80.0-100.0); Mean Platelet Volume 6.9; Monocytes # (A) 0.7 k/uL (0-1.0); Monocytes % (A) 4 %; Neutrophils # (A) 14.5 k/uL (1.3-7.7); Neutrophils % (A) 89 %; Platelet Count 208 k/uL (150-450); RBC 5.07 m/uL (4.30-5.90); RDW 17.3 % (11.5-15.5); WBC 16.2 k/uL (3.8-10.6)
[2019-10-21] MEDS: NOREPINEPHRINE 4 MG in SODIUM CHLORIDE 0.9% 250 ML IV SCH ×2 (07:49→16:20)
[2019-10-21] MEDS: CHLORHEXIDINE GLUCONATE 15 ML CUP MUCOUS MEM SCH ×2 (07:54→20:01)
[2019-10-21] MEDS: PANTOPRAZOLE 40 MG/10 ML VIAL IVP SCH ×2 (07:54→20:01)
[2019-10-21] MEDS: FAMOTIDINE 20 MG TAB PO SCH (07:55)
[2019-10-21] MEDS: INSULIN DETEMIR (LEVEMIR) 100 UNIT/ML SYR SQ SCH (07:55)
[2019-10-21] MEDS: METOPROLOL TARTRATE 50 MG TAB PO SCH ×2 (07:55→20:01)
[2019-10-21] MEDS: NICOTINE 21MG/24HR PATCH TRANSDERM SCH (07:55)
[2019-10-21] MEDS: CLOPIDOGREL 75 MG TAB PO SCH (07:55)
[2019-10-21] MEDS: CHOLECALCIFEROL 1,000 UNIT TAB PO SCH (07:55)
[2019-10-21] MEDS: ASPIRIN 81 MG PO SCH (07:55)
[2019-10-21] MEDS: LISINOPRIL 2.5 MG TAB PO SCH (07:56)
[2019-10-21] MEDS: CYANOCOBALAMIN 500 MCG TAB PO SCH (07:56)
[2019-10-21] MEDS: LORATADINE 10 MG TAB PO SCH (07:56)
--- NOTE | 2019-10-21 08:21 | XR ---
EXAMINATION TYPE: XR chest 1V portable DATE OF EXAM: 10/21/2019 COMPARISON: Prior chest x-ray 10/20/2019, CT chest 06/11/2016 HISTORY: Intubated TECHNIQUE: Single frontal view of the chest is obtained. FINDINGS: Endotracheal tube, NG tube are overlying the appropriate positions. Heart size is stable. Probable subsegmental basilar atelectatic changes are noted, there are overlying cardiac leads. No pn eumothorax or pleural effusion. Bones are unchanged. IMPRESSION: Subsegmental basilar atelectatic changes. There is underlying emphysema.
[2019-10-21 08:27] LABS: ABG Base Excess 12.9 mmol/L; ABG HCO3 37 mmol/L (21-25); ABG Oxygen Saturation 92.9 % (94-97); ABG PCO2 55 mmHg (35-45); ABG PH 7.44 (7.35-7.45); ABG PO2 65 mmHg (83-108); ABG TCO2 39 mmol/L (19-24); Allen Test Performed? Yes
[2019-10-21] MEDS: ISOSORBIDE MONONITRATE ER 60 MG TAB.ER.24H PO SCH ×2 (09:09→20:01)
[2019-10-21] MEDS: PIPERACILLIN-TAZOBACTAM 3.375 GM in SODIUM CHLORIDE 0.9% 100 ML IVPB SCH ×3 (09:11→23:19)
[2019-10-21] MEDS: SODIUM CHLORIDE 0.9% 1,000 ML IV SCH ×2 (09:12→21:03)
[2019-10-21 10:07] LABS: Appearance,Urine Clear (Clear); Bilirubin,Urine Negative (Negative); Blood,Urine Negative (Negative); Color,Urine Yellow; Glucose,Urine (UA) Negative (Negative); Ketones,Urine Negative (Negative); Leukocyte Esterase,Urine Negative (Negative); Nitrite,Urine Negative (Negative); PH, Urine 5.5 (5.0-8.0); Protein,Urine Trace (Negative); Specific Gravity,Urine 1.031 (1.001-1.035); Urobilinogen,Urine <2.0 mg/dL (<2.0)
--- NOTE | 2019-10-21 10:36 | P.PN ---
Subjective This is a pleasant 58 years old -[place]anese male with past medical history of chronic heart failure, coronary artery disease status post stent, COPD, GERD, hypertension, hyperlipidemia, pulmonary embolism, prostate cancer, type 2 diabetes mellitus with diabetic neuropathy and arms and legs, on home oxygen 2- 2.5 L via nasal cannula. His PCP is kymberly jackman and his army officer is Dr. Camilo. Presents with chest pain felt like burning in the center radiating to the face and back 4 days duration about 7/10 in severity, for similar to his chest pain before when he had heart attacks. It with exertional dyspnea and some digital dry coughing. He still smokes about 1 pack per day, patient is counseled and he agrees to nicotine patch, no alcohol or illicit drugs other than weed Vitals are stable. Labs show an unremarkable CBC, INR. BMP showing sodium 1:30, creatinine normal 0.6, glucose is elevated 263, troponin is elevated 0.09. Chest x-ray: No acute process, COPD and atelectasis EKG showing normal sinus rhythm at 90 bpm with no significant ST-T changes On admission patient was placed on heparin drip and started on aspirin 325 mg daily 10/17/2019 Patient is still complaining of from exertional dyspnea but no chest pain, I s till have coughing with little phlegm Hemodynamically stable. showing sodium of 129, slightly worse than yesterday 130, potassium 5.2, glucose 245, Distal on heparin drip and Xarelto is on hold, Is also on aspirin or Plavix With the patient on fluid restriction 1500 ml/day Cardiology clinic for cardiac cath tomorrow 10/18/2019 Patient underwent coronary angiogram and PCI with successful stenting of the mid RCA. Postprocedure patient was lying in bed not in distress. Vitals and labs were reviewed 10/19/2019 Patient is status post coronary angiogram and stenting of his mid RCA, however as per discussion with cardiology team he might need another stent. He was started on aspirin and Plavix and importance of antacid therapy is explained to him and he agrees I discussed the case with the patient in the morning, he was sitting comfortable in chair and was asking to be discharged today however later on developed chest pain radiating to the left arm and it was decided the patient to go to another cardiac cath today. Patient confirms to me that he is on Xarelto 15 mg daily and he was just taken before coming to the hospital, he confirmed to me he has a prescription for it at home. Also he confirms to me that he is on home oxygen for his COPD, about 2-3 L. Sodium 130, lipase 149 improving. Sugar controlled 10/20/2019 Patient developed chest pain and patient was taken to emergent cardiac cath by cardiology team post-procedure patient developed respiratory distress and went to the ICU where he got intubated for acute hypoxic hypercapnic respiratory failure. Also patient was needed to be placed on Levophed last night however this was stopped this morning. ABG this morning shows pH of 7.4, pCO2 63, pO2 of 53. Sodium is 130, potassium 5.1, creatinine 0.8. CBC is unremarkable. Chest x-ray showing stable emphysema with minimal atelectasis.i reviewed the cxr myself and compared it with cxr from 03/2019 and it looked very similar Patient remains on aspirin and Plavix, Xarelto is added tonight by cardiology team. He got 1 dose of Lasix, started also on soluMedrol 40 mg twice daily and Protonix 40 mg IV twice daily Patient remains in critical condition in the ICU 10/21/2019 Patient ICU intubated and sedated. His FiO2 lower today from 70 down to 60%, his PEEP increased to 10. Further rate 28-30, blood pressure 99/53, oxygen saturation 92%. Patient has low-grade temperature of 100.8. WBCs is 16.2 K, sodium was 126. Urine analysis is negative, coronal varus not detected. Chest x-ray showing basilar atelectasis, with emphysema. Patient was started on Zosyn today as well as normal saline at 75 mL/h. Review of Systems: N/a, patient could not provide information Active Medications Generic Name Dose Route Start Last Admin Trade Name Freq PRN Reason Stop Dose Admin Al Hydroxide/Mg Hydroxide 30 ml 10/18/19 11:06 Maalox PO Q4HR PRN Heartburn Albuterol/Ipratropium 3 ml 10/20/19 00:00 10/21/19 08:30 Duoneb 0.5 Mg-3 Mg/3 Ml Soln INHALATION 3 ml RT-Q4H CHUY Administration Aspirin 81 mg 10/18/19 09:00 10/21/19 07:55 Aspirin PO 81 mg DAILY CHUY Administration Atropine Sulfate 0.5 mg 10/18/19 11:06 Atropine IV ONCE PRN Symptomatic Bradycardia Chlorhexidine Gluconate 15 ml 10/20/19 09:00 10/21/19 07:54 Peridex MUCOUS MEM 15 ml BID CHUY Administration Cholecalciferol 1,000 unit 10/17/19 09:00 10/21/19 07:55 Vitamin D3 (25 Mcg = 1000 Iu) PO 1,000 unit DAILY [facility]UY Administration Clopidogrel Bisulfate 75 mg 10/17/19 09:00 10/21/19 07:55 Plavix PO 75 mg DAILY CHUY Administration Cyanocobalamin 1,000 mcg 10/17/19 09:00 10/21/19 07:56 Vitamin B-12 PO 1,000 mcg DAILY [facility] Administration Hydromorphone HCl 0.5 mg 10/19/19 13:05 10/20/19 20:50 Dilaudid IVP 0.5 mg Q4HR PRN Administration Pain Propofol 1,000 mg/ IV Solution 100 mls @ 0 mls/hr 10/19/19 21:15 10/21/19 10:26 IV 60 mcg/kg/min .Q0M [facility] 45.216 mls/hr Titration Protocol Titrate Norepinephrine Bitartrate 4 mg 254 mls @ 24.003 mls/hr 10/19/19 22:00 10/21/19 07:49 / Sodium Chloride IV Not Given .[id number] [facility] Protocol 0.05 MCG/KG/MIN Sodium Chloride 1,000 mls @ 75 mls/hr 10/21/19 08:45 10/21/19 09:12 Saline 0.9% IV 75 mls/hr .[id number] [facility] Administration Piperacillin Sod/Tazobactam 100 mls @ 25 mls/hr 10/21/19 08:45 10/21/19 09:11 Sod 3.375 gm/ Sodium Chloride IVPB 25 mls/hr Q8HR [facility] Administration Insulin Detemir 10 unit 10/17/19 09:00 10/21/19 07:55 Levemir SQ 10 unit DAILY [facility] Administration Isosorbide Mononitrate 60 mg 10/16/19 21:00 10/21/19 09:09 Imdur PO Not Given BID [facility] Lisinopril 2.5 mg 10/17/19 09:00 10/21/19 07:56 Zestril PO 2.5 mg DAILY [facility] Administration Loratadine 10 mg 10/17/19 09:00 10/21/19 07:56 Claritin PO 10 mg DAILY [facility] Administration Methylprednisolone Sodium Succinate 40 mg 10/20/19 09:00 10/21/19 07:55 Solu-Medrol IV 40 mg Q6H [facility] Administration Metoprolol Tartrate 50 mg 10/20/19 21:00 10/21/19 07:55 Lopressor PO 50 mg BID [facility] Administration Miscellaneous Information 1 each 10/19/19 11:29 Rx Info: Iv Contrast Was Given MISCELLANE 10/21/19 11:29 DAILY PRN Per Protocol Naloxone HCl 0.2 mg 10/19/19 19:58 Narcan IV Q2M PRN Opioid Reversal Nicotine 1 patch 10/16/19 16:45 10/21/19 07:55 Habitrol 21mg/24hr Patch TRANSDERM 1 patch DAILY [facility] Administration Nitroglycerin 0.4 mg 10/16/19 20:24 10/17/19 20:48 Nitrostat SUBLINGUAL 0.4 mg Q5M PRN Administration Chest Pain Pantoprazole Sodium 40 mg 10/20/19 21:00 10/21/19 07:54 Protonix IVP 40 mg BID [facility] Administration Rivaroxaban 15 mg 10/20/19 17:30 10/20/19 16:44 Xarelto PO 15 mg W/SUPPER [facility] Administration Objective - Vital Signs Vital signs: Vital Signs Temp 100.8 F H 10/21/19 08:00 Pulse 90 10/21/19 10:00 Resp 33 H 10/21/19 10:00 BP 99/53 10/21/19 10:00 Pulse Ox 92 L 10/21/19 10:00 Intake & Output 10/20/19 10/21/19 10/21/19 18:59 06:59 18:59 Intake Total 964.866 771.047 711.110 Output Total 1950 597 230 Balance -985.134 174.047 481.110 Weight 127 kg 125.6 kg Intake: IV 366 36 12 A Line 36 36 12 Sodium Chloride 0.9% 1, 330 000 ml @ 75 mls/hr IV . [id number] [facility] Rx#:[id number] Intake, IV Titration 588.866 407.047 513.110 Amount Norepinephrine 4 mg In 67.047 Sodium Chloride 0.9% 250 ml @ 0.05 MCG/KG/MIN 24. 003 mls/hr IV .[id number] [facility] Rx#:[id number] Piperacillin-Tazobactam 3 100 .375 gm In Sodium Chloride 0.9% 100 ml @ 25 mls/hr IVPB Q8HR [facility] Rx# :[id number] Propofol 1,000 mg In 568.866 100 223.110 Empty Bag 1 bag @ Titrate IV .Q0M [facility] Rx#: [id number] Sodium Chloride 0.9% 1, 20 240 20 000 ml @ 20 mls/hr IV . Q24H [facility] Rx#:[id number] Sodium Chloride 0.9% 1, 170 000 ml @ 75 mls/hr IV . [id number] [facility] Rx#:[id number] Oral 60 Tube Feeding 10 328 96 Other 30 Output: Urine 1950 597 230 Other: Voiding Method Indwelling Catheter Indwelling Catheter Indwelling Catheter ABP, PAP, CO, CI - Last Documented Arterial Blood Pressure 110/60 - Exam -GENERAL: The patient is intubated and sedated, not in respiratory acute distress. Obese HEENT: Pupils are round and equally reacting to light. EOMI. No scleral icterus. No conjunctival pallor. Normocephalic, atraumatic. No pharyngeal erythema. No thyromegaly. CARDIOVASCULAR: S1 and S2 present. No murmurs, rubs, or gallops. -PULMONARY: Chest is clear to auscultation, bilateral scattered wheezing or crackles. ABDOMEN: Soft, nontender, nondistended, normoactive bowel sounds. No palpable organomegaly. MUSCULOSKELETAL: No joint swelling or deformity. EXTREMITIES: No cyanosis, clubbing, or pedal edema. NEUROLOGICAL: Gross neurological examination did not reveal any focal deficits. SKIN: No rashes. no petechiae. - Labs CBC & Chem 7: 10/21/19 04:30 10/21/19 04:30 Labs: Abnormal Lab Results - Last 24 Hours (Table) 10/21/19 10/21/19 10/21/19 Range/Units 04:30 04:30 08:25 WBC 16.2 H (3.8-10.6) k/uL RDW 17.3 H (11.5-15.5) % Neutrophils # 14.5 H (1.3-7.7) k/uL Lymphocytes # 0.8 L (1.0-4.8) k/uL ABG pCO2 55 H (35-45) mmHg ABG pO2 65 L (83-108) mmHg ABG HCO3 37 H (21-25) mmol/L ABG Total CO2 39 H (19-24) mmol/L ABG O2 Saturation 92.9 L (94-97) % Sodium 126 L (137-145) mmol/L Chloride 83 L (98-107) mmol/L Carbon Dioxide 36 H (22-30) mmol/L BUN 26 H (9-20) mg/dL Glucose 226 H (74-99) mg/dL Urine Protein (Negative) 10/21/19 Range/Units 09:44 WBC (3.8-10.6) k/uL RDW (11.5-15.5) % Neutrophils # (1.3-7.7) k/uL Lymphocytes # (1.0-4.8) k/uL ABG pCO2 (35-45) mmHg ABG pO2 (83-108) mmHg ABG HCO3 (21-25) mmol/L ABG Total CO2 (19-24) mmol/L ABG O2 Saturation (94-97) % Sodium (137-145) mmol/L Chloride (98-107) mmol/L Carbon Dioxide (22-30) mmol/L BUN (9-20) mg/dL Glucose (74-99) mg/dL Urine Protein Trace H (Negative) Microbiology - Last 24 Hours (Table) 10/20/19 04:10 Gram Stain - Preliminary Sputum Sputum Culture - Preliminary Assessment and Plan Assessment: Acute hypoxemic, hypercapnic respiratory failure. Need a mechanical ventilation . Acute COPD exacerbation, with possible elements of obesity hypoventilation syndrome Non-STEMI, status post coronary angiogram and PCI with successful stenting of the mid RCA., And second coronary angiogram with stenting of first obtuse marginal branch of circumflex artery Sepsis, possible developing pneumonia. hyponatremia, hypovolemic Nicotine dependence Substance abuse wit marijuana Obesity with BMI of 37 type 2 diabetes mellitus with diabetic neuropathy and arms and legs, with hyperglycemia Hypertension Hyperlipidemia Chronic heart failure Chronic hypoxic respiratory failure on 2-2.5 L via nasal cannula oxygen COPD, not an active issue GERD History of pulmonary embolism, on Xarelto 15 Jacqueline daily History of prostate cancer Plan: This is a pleasant 58 years old male who presents because of chest pain. Patient developed respiratory failure and got intubated and went to the ICU. Continue with pulmonary/critical care team consultation will manage and his event. Continue on aspirin, Plavix as per cardiology recommendation. Xarelto is restarted. Continue with steroids. Continue with Protonix. Agree with Zosyn. Continue with normal saline and follow-up sodium level Labs and medication were reviewed.. Continue same treatment. Continue with symptomatic treatment. Resume home medication. Monitor lytes and vitals. DVT and GI prophylaxis. Further recommendations of the clinical course of the patient DVT prophylaxis: Xarelto GI Prophylaxis: Ppi Prognosis is guarded
--- NOTE | 2019-10-21 11:49 | P.PN ---
Subjective Progress Note Date: 10/21/19 Principal diagnosis: Acute hypoxic and hypercapnic respiratory failure, multifactorial. This is a 58-year-old white male, familiar to my service, known history of severe COPD, saw the patient for the first time on 07/03/2017, and I saw him back then mostly for an acute exacerbation of COPD. Patient was treated mostly with bronchodilators, antibiotics, steroids, and he was discharged home. Since then I have seen the patient on outpatient basis, and the last evaluation was via phone visit/telemedicine about 2 weeks ago. Patient had mostly symptoms of COPD exacerbation, treated with prednisone and doxycycline and advised to continue his bronchodilators. He was also advised to stop smoking. At any rate on 10/16/19, patient presented to the emergency room with chest pain consistent with acute coronary syndrome. He was seen by cardiology on consultation, and the patient had a previous stenting of the left circumflex coronary artery. Patient was treated with aspirin, heparin, nitroglycerin, and he underwent cardiac catheterization by Dr. Camilo. This was done on 10/18, and the patient underwent stenting of the first obtuse marginal branch of the left circumflex. This was successful, patient was placed on dual antiplatelet therapy, and advised to have aggressive cholesterol control. Last night, the patient developed worsening pulmonary status, he was noted to have profound shortness of breath, and he became obtunded with significant hypercapnia and hypoxia. Tried on BiPAP, and apparently his ABG was getting worse. Hence I was notified about this patient, and I recommended immediate transfer to the intensive care unit and intubation. Patient was intubated, and I was asked to see him on consultation. ABG before intubation showed a pO2 of 84, pCO2 of 120 and pH of 7.16. This morning ABG showed a pO2 of 53 pCO2 of 63 and pH of 7.40. Hence his FiO2 was increased from 60% to 70%, and his PEEP was increased to 8. Patient is now on mechanical venti lation, and his assist-control rate is 28, tidal volume is 500, FiO2 is 70%, and PEEP is 8. Chest x-ray showed evidence of interstitial edema, hence I recommended Lasix 40 mg IV push 1. And I cut down his IV fluid to KVO. Patient is on propofol at 60 mcg/kg/m, he was on norepinephrine which has been discontinued after the patient responded to fluid boluses last night. Patient was reevaluated today on 10/21/19, patient remains in the intensive care unit, intubated, mechanically ventilated. He is on assist control rate of 28 tidal volume is 500 FiO2 is 60% and PEEP was 8 however I increased the PEEP up to 10. Patient remains on propofol at 45 mcg/kg/m, not requiring norepinephrine today, his IV fluid is 0.9 at 20 mL per hour. Patient's ABG showed a pO2 of 65 pCO2 of 55 pH of 7.43. Patient had low-grade fever overnight, he is in sinus rhythm rate of 98. Sputum Cultures are nondiagnostic so far. Basic metabolic profile showed a low sodium of 126, could very well be related to diuresis yesterday, hence we'll restart the patient on 0.9 normal saline at 75 mL per hour today. Patient is in definite negative fluid balance. Echocardiogram was ordered today to assess his LV function. Chest x-ray showed mostly subsegmental basilar atelectasis, improved compared to the chest x-ray done yesterday per Objective - Vital Signs Vital signs: Vital Signs Temp 100.8 F H 10/21/19 08:00 Pulse 92 10/21/19 11:26 Resp 31 H 10/21/19 11:36 BP 107/61 10/21/19 11:00 Pulse Ox 92 L 10/21/19 11:00 Intake & Output 10/20/19 10/21/19 10/21/19 18:59 06:59 18:59 Intake Total 964.866 771.047 711.110 Output Total 1950 597 230 Balance -985.134 174.047 481.110 Weight 127 kg 125.6 kg Intake: IV 366 36 12 A Line 36 36 12 Sodium Chloride 0.9% 1, 330 000 ml @ 75 mls/hr IV . [id number] [facility] Rx#:[id number] Intake, IV Titration 588.866 407.047 513.110 Amount Norepinephrine 4 mg In 67.047 Sodium Chloride 0.9% 250 ml @ 0.05 MCG/KG/MIN 24. 003 mls/hr IV .[id number] [facility] Rx#:[id number] Piperacillin-Tazobactam 3 100 .375 gm In Sodium Chloride 0.9% 100 ml @ 25 mls/hr IVPB Q8HR [facility] Rx# :[id number] Propofol 1,000 mg In 568.866 100 223.110 Empty Bag 1 bag @ Titrate IV .Q0M [facility] Rx#: [id number] Sodium Chloride 0.9% 1, 20 240 20 000 ml @ 20 mls/hr IV . Q24H [facility] Rx#:[id number] Sodium Chloride 0.9% 1, 170 000 ml @ 75 mls/hr IV . [id number] [facility] Rx#:[id number] Oral 60 Tube Feeding 10 328 96 Other 30 Output: Urine 1950 597 230 Other: Voiding Method Indwelling Catheter Indwelling Catheter Indwelling Catheter ABP, PAP, CO, CI - Last Documented Arterial Blood Pressure 112/60 - Exam GENERAL EXAM: Revealed a 58-year-old white male intubated and mechanically ventilated. HEAD: Normocephalic/atraumatic. Endotracheal tube and orogastric tube are intact. EYES: Normal reaction of pupils, equal size. Conjunctiva pink, sclera white. NOSE: Clear with pink turbinates. THROAT: No erythema or exudates. NECK: No masses, no JVD, no thyroid enlargement, no adenopathy. CHEST: Symmetrical chest expansion. LUNGS: Diminished breath sound bilaterally no rhonchi no wheezes, minimal crackles at the bases CVS: Regular rate and rhythm, normal S1 and S2, no gallops, no murmurs, no rubs ABDOMEN: Obese, Soft, nontender. No hepatosplenomegaly, normal bowel sounds, no guarding or rigidity. EXTREMITIES: No clubbing, 2+ edema in bilateral lower extremities, no cyanosis, 2+ pulses and upper and lower extremities. MUSCULOSKELETAL: No deformities. SPINE: No scoliosis or deformity SKIN: No rashes CENTRAL NERVOUS SYSTEM: Patient is sedated on propofol, could not be assessed. PSYCHIATRIC: Could not be assessed. - Labs CBC & Chem 7: 10/21/19 04:30 10/21/19 04:30 Labs: Abnormal Lab Results - Last 24 Hours (Table) 10/21/19 10/21/19 10/21/19 Range/Units 04:30 04:30 08:25 WBC 16.2 H (3.8-10.6) k/uL RDW 17.3 H (11.5-15.5) % Neutrophils # 14.5 H (1.3-7.7) k/uL Lymphocytes # 0.8 L (1.0-4.8) k/uL ABG pCO2 55 H (35-45) mmHg ABG pO2 65 L (83-108) mmHg ABG HCO3 37 H (21-25) mmol/L ABG Total CO2 39 H (19-24) mmol/L ABG O2 Saturation 92.9 L (94-97) % Sodium 126 L (137-145) mmol/L Chloride 83 L (98-107) mmol/L Carbon Dioxide 36 H (22-30) mmol/L BUN 26 H (9-20) mg/dL Glucose 226 H (74-99) mg/dL Urine Protein (Negative) 10/21/19 Range/Units 09:44 WBC (3.8-10.6) k/uL RDW (11.5-15.5) % Neutrophils # (1.3-7.7) k/uL Lymphocytes # (1.0-4.8) k/uL ABG pCO2 (35-45) mmHg ABG pO2 (83-108) mmHg ABG HCO3 (21-25) mmol/L ABG Total CO2 (19-24) mmol/L ABG O2 Saturation (94-97) % Sodium (137-145) mmol/L Chloride (98-107) mmol/L Carbon Dioxide (22-30) mmol/L BUN (9-20) mg/dL Glucose (74-99) mg/dL Urine Protein Trace H (Negative) Microbiology - Last 24 Hours (Table) 10/20/19 04:10 Gram Stain - Preliminary Sputum Sputum Culture - Preliminary Assessment and Plan Assessment: Impression: Acute hypoxic and hypercapnic respiratory failure secondary to severe COPD exacerbation and suspect acute on chronic diastolic congestive heart failure. Acute non-ST elevation myocardial infarction, status post stenting of first obtuse marginal branch of left circumflex. History of severe peripheral neuropathy History of previous myocardial infarction and underlying coronary artery disease Nicotine dependence syndrome. History of prostate cancer, radical prostatectomy in 2001 History of dyslipidemia History of pulmonary embolism History of obstructive sleep apnea syndrome noncompliant with CPAP. History of type 2 diabetes with peripheral neuropathy History of GERD and esophagitis History of benign essential hypertension Hyponatremia, most likely secondary to diuretics./Hypovolemic, hyponatremia. Recommendation: Continue ventilatory support Ordered echocardiogram to assess LV function. Continue cardiac meds Continue bronchodilators and steroids Continue GI and DVT prophylaxis Continue enteral feeding Hold on diuretics. And IV fluid at 75 mL per hour in the form of 0.9 normal saline. Continue dual antiplatelet therapy Continue insulin for glucose control. We'll continue to follow. Critical care time is 33 minutes Time with Patient: Greater than 30
[2019-10-21 11:52] LABS: Glucose,Whole Blood 202 mg/dL (75-99)
[2019-10-21] MEDS: INSULIN ASPART (NovoLOG) 100 UNIT/ML VIAL SQ SCH ×3 (11:53→23:19)
--- NOTE | 2019-10-21 12:00 | ECHOF ---
Referral Reason:hypoxic resp failure MEASUREMENTS -------- HEIGHT: 180.3 cm WEIGHT: 113.4 kg BP: IVSd: 1.4 cm (0.6 - 1.1) LVIDd: 3.9 cm (3.9 - 5.3) LVPWd: 1.4 cm (0.6 - 1.1) IVSs: 1.5 cm LVIDs: 2.2 cm LVPWs: 1.9 cm MV E Gen: 0.26 m/s MV DecT: 172 ms MV A Gen: 0.41 m/s MV E/A Ratio: 0.62 RAP: 5.00 mmHg RVSP: 7.04 mmHg FINDINGS -------- Sinus rhythm. This was a technically difficult study with suboptimal views. Limited Study Pt. on a vent. The left ventricular size is normal. There is moderate concentric left ventricular hypertrophy. O verall left ventricular systolic function is normal with, an EF between 55 - 60 %. The RV was not well visualized. The left atrium was not well visualized. The right atrium was not well visualized. Lumason used Unable to visualize the septum. The aortic valve was not well visualized. The mitral valve was not well visualized. The tricuspid valve was not well visualized. The pulmonic valve was not well visualized. IVC Not well visulized. CONCLUSIONS -------- 1. Sinus rhythm. 2. This was a technically difficult study with suboptimal views. 3. Limited Study 4. Pt. on a vent. 5. The left ventricular size is normal. 6. There is moderate concentric left ventricular hypertrophy. 7. Overall left ventricular systolic function is normal with, an EF between 55 - 60 %. 8. The RV was not well visualized. 9. The left atrium was not well visualized. 10. The right atrium was not well visualized. 11. Lumason used 12. Unable to visualize the septum. 13. The aortic valve was not well visualized. 14. The mitral valve was not well visualized. 15. The tricuspid valve was not well visualized. 16. The pulmonic valve was not well visualized. 17. IVC Not well visulized. CADD OPERATOR: Cristal Larkin [facility]
[2019-10-21] MEDS: HYDROmorphone 0.5 MG/0.5 ML SYRINGE IVP PRN (17:26)
[2019-10-21 17:33] LABS: Glucose,Whole Blood 194 mg/dL (75-99)
[2019-10-21] MEDS: RIVAROXABAN 15 MG TAB PO SCH (17:35)
--- NOTE | 2019-10-21 17:52 | XR ---
EXAMINATION: XR chest 1V portable DATE AND TIME: 10/21/2019 5:20 PM CLINICAL INDICATION: PHH; pulled at ET tube TECHNIQUE: Departmental protocol COMPARISON: 10/21/2019 5:37 AM FINDINGS: ET tube tip superimposed over the mid trachea. NG tube present, with tip superimposed over the gastric body. The lungs are clear. The pleural spaces are negative. The cardiac silhouette is unremarkable, as is the remainder of the mediastinum. The skeletal structures and soft tissues are negative for acute findings. IMPRESSION: ET tube tip superimposed over the mid trachea. No acute radiographic process.
--- NOTE | 2019-10-21 19:19 | PN ---
PROGRESS NOTE Mr. Matamoros is a 58-year-old gentleman who is admitted to intensive care unit with respiratory failure. This morning he is intubated and mechanically ventilated. On exam, heart rate is 90 beats per minute. Blood pressure is 130/70, respiratory rate is 24. Chest exam reveals diminished air entry bilaterally. Heart exam reveals first and second heart sounds. No gallop. Exam of extremities reveals mild edema. Labs show a hemoglobin of 14.6, platelet count is 208. Potassium is 4.7. Creatinine is 0.85. The patient is currently on aspirin, Plavix, insulin, Imdur, Zestril, Lopressor and Xarelto. ASSESSMENT: 1. Respiratory failure. 2. Coronary artery disease status post multivessel angioplasty. 3. History of atrial fibrillation. PLAN: The patient will continue current medications. We will continue with the current supportive care. TEMI / WILLIS: [id number] /
[2019-10-21 23:14] LABS: Glucose,Whole Blood 211 mg/dL (75-99)
[2019-10-22] MEDS: PROPOFOL 1,000 MG in EMPTY BAG 1 BAG IV SCH ×10 (01:13→23:45)
[2019-10-22] MEDS: NOREPINEPHRINE 4 MG in SODIUM CHLORIDE 0.9% 250 ML IV SCH ×3 (03:15→23:05)
[2019-10-22] MEDS: methylPREDNISolone SOD SUCCI 40 MG/ML 1 ML VIAL IV SCH ×4 (03:16→20:21)
[2019-10-22] MEDS: IPRATROPIUM-ALBUTEROL 3 ML NEB INHALATION SCH ×5 (03:45→18:40)
[2019-10-22 04:49] LABS: Anisocytosis Slight; Basophils % (A) 0 %; Eosinophils % (A) 0 %; HCT 43.3 % (39.0-53.0); HGB 13.5 gm/dL (13.0-17.5); Lymphocytes # (A) 0.8 k/uL (1.0-4.8); Lymphocytes % (A) 7 %; MCH 29.2 pg (25.0-35.0); MCHC 31.1 g/dL (31.0-37.0); MCV 93.8 fL (80.0-100.0); Mean Platelet Volume 7.2; Monocytes # (A) 0.7 k/uL (0-1.0); Monocytes % (A) 6 %; Neutrophils % (A) 86 %; Platelet Count 186 k/uL (150-450); RBC 4.62 m/uL (4.30-5.90); RDW 17.3 % (11.5-15.5); WBC 11.6 k/uL (3.8-10.6)
[2019-10-22] MEDS: HYDROmorphone 0.5 MG/0.5 ML SYRINGE IVP PRN ×3 (04:51→23:45)
[2019-10-22 04:55] LABS: African American GFR (CKD) >90 (>60 ml/min/1.73 sqM); Anion Gap 2 mmol/L; Blood Urea Nitrogen 27 mg/dL (9-20); Calcium 8.6 mg/dL (8.4-10.2); Carbon Dioxide 37 mmol/L (22-30); Chloride 87 mmol/L (98-107); Glucose 189 mg/dL (74-99); Non-African American GFR(CKD) >90 (>60 ml/min/1.73 sqM); Potassium 4.7 mmol/L (3.5-5.1); Sodium 126 mmol/L (137-145)
[2019-10-22] MEDS: INSULIN ASPART (NovoLOG) 100 UNIT/ML VIAL SQ SCH ×4 (05:39→23:34)
[2019-10-22 07:33] LABS: ABG Base Excess 12.6 mmol/L; ABG HCO3 37 mmol/L (21-25); ABG Oxygen Saturation 92.9 % (94-97); ABG PCO2 55 mmHg (35-45); ABG PH 7.43 (7.35-7.45); ABG PO2 64 mmHg (83-108); ABG TCO2 39 mmol/L (19-24); Allen Test Performed? Yes
[2019-10-22] MEDS: PIPERACILLIN-TAZOBACTAM 3.375 GM in SODIUM CHLORIDE 0.9% 100 ML IVPB SCH ×3 (07:49→23:34)
[2019-10-22] MEDS: NICOTINE 21MG/24HR PATCH TRANSDERM SCH (07:49)
--- NOTE | 2019-10-22 08:02 | XR ---
EXAMINATION TYPE: XR chest 1V portable DATE OF EXAM: 10/22/2019 COMPARISON: 10/21/2019 HISTORY: Ventilatory dependent respiratory failure TECHNIQUE: Single frontal view of the chest is obtained. FINDINGS: Increasing confluence of the right infrahilar opacity is seen. Endotracheal tube and enter ic tubes are similar in position. Cardiomediastinal silhouette is upper limits of normal size. New st rand-like left basilar opacity has developed in the interim. Lung apices are well aerated. Moderate d egenerative change of the spine. IMPRESSION: Increasing right infrahilar opacity and new left basilar opacity. These may represent at electasis or pneumonia in this ventilatory dependent patient.
[2019-10-22] MEDS: PANTOPRAZOLE 40 MG/10 ML VIAL IVP SCH ×2 (08:05→20:21)
[2019-10-22] MEDS: CHOLECALCIFEROL 1,000 UNIT TAB PO SCH (08:12)
[2019-10-22] MEDS: LORATADINE 10 MG TAB PO SCH (08:12)
[2019-10-22] MEDS: CLOPIDOGREL 75 MG TAB PO SCH (08:12)
[2019-10-22] MEDS: LISINOPRIL 2.5 MG TAB PO SCH (08:13)
[2019-10-22] MEDS: METOPROLOL TARTRATE 50 MG TAB PO SCH ×2 (08:13→20:21)
[2019-10-22] MEDS: CHLORHEXIDINE GLUCONATE 15 ML CUP MUCOUS MEM SCH ×2 (08:13→20:21)
[2019-10-22] MEDS: ASPIRIN 81 MG PO SCH (08:13)
[2019-10-22] MEDS: CYANOCOBALAMIN 500 MCG TAB PO SCH (08:13)
[2019-10-22] MEDS: ISOSORBIDE MONONITRATE ER 60 MG TAB.ER.24H PO SCH ×2 (08:20→20:21)
[2019-10-22] MEDS: INSULIN DETEMIR (LEVEMIR) 100 UNIT/ML SYR SQ SCH (08:20)
--- NOTE | 2019-10-22 09:44 | P.PN ---
Subjective This is a pleasant 58 years old -[place] male with past medical history of chronic heart failure, coronary artery disease status post stent, COPD, GERD, hypertension, hyperlipidemia, pulmonary embolism, prostate cancer, type 2 diabetes mellitus with diabetic neuropathy and arms and legs, on home oxygen 2- 2.5 L via nasal cannula. His PCP is kymberly jackman and his import export coordinator is Dr. Camilo. Presents with chest pain felt like burning in the center radiating to the face and back 4 days duration about 7/10 in severity, for similar to his chest pain before when he had heart attacks. It with exertional dyspnea and some digital dry coughing. He still smokes about 1 pack per day, patient is counseled and he agrees to nicotine patch, no alcohol or illicit drugs other than weed Vitals are stable. Labs show an unremarkable CBC, INR. BMP showing sodium 1:30, creatinine normal 0.6, glucose is elevated 263, troponin is elevated 0.09. Chest x-ray: No acute process, COPD and atelectasis EKG showing normal sinus rhythm at 90 bpm with no significant ST-T changes On admission patient was placed on heparin drip and started on aspirin 325 mg daily 10/17/2019 Patient is still complaining of from exertional dyspnea but no chest pain, I s till have coughing with little phlegm Hemodynamically stable. showing sodium of 129, slightly worse than yesterday 130, potassium 5.2, glucose 245, Distal on heparin drip and Xarelto is on hold, Is also on aspirin or Plavix With the patient on fluid restriction 1500 ml/day Cardiology clinic for cardiac cath tomorrow 10/18/2019 Patient underwent coronary angiogram and PCI with successful stenting of the mid RCA. Postprocedure patient was lying in bed not in distress. Vitals and labs were reviewed 10/19/2019 Patient is status post coronary angiogram and stenting of his mid RCA, however as per discussion with cardiology team he might need another stent. He was started on aspirin and Plavix and importance of antacid therapy is explained to him and he agrees I discussed the case with the patient in the morning, he was sitting comfortable in chair and was asking to be discharged today however later on developed chest pain radiating to the left arm and it was decided the patient to go to another cardiac cath today. Patient confirms to me that he is on Xarelto 15 mg daily and he was just taken before coming to the hospital, he confirmed to me he has a prescription for it at home. Also he confirms to me that he is on home oxygen for his COPD, about 2-3 L. Sodium 130, lipase 149 improving. Sugar controlled 10/20/2019 Patient developed chest pain and patient was taken to emergent cardiac cath by cardiology team post-procedure patient developed respiratory distress and went to the ICU where he got intubated for acute hypoxic hypercapnic respiratory failure. Also patient was needed to be placed on Levophed last night however this was stopped this morning. ABG this morning shows pH of 7.4, pCO2 63, pO2 of 53. Sodium is 130, potassium 5.1, creatinine 0.8. CBC is unremarkable. Chest x-ray showing stable emphysema with minimal atelectasis.i reviewed the cxr myself and compared it with cxr from 03/2019 and it looked very similar Patient remains on aspirin and Plavix, Xarelto is added tonight by cardiology team. He got 1 dose of Lasix, started also on soluMedrol 40 mg twice daily and Protonix 40 mg IV twice daily Patient remains in critical condition in the ICU 10/21/2019 Patient ICU intubated and sedated. His FiO2 lower today from 70 down to 60%, his PEEP increased to 10. Further rate 28-30, blood pressure 99/53, oxygen saturation 92%. Patient has low-grade temperature of 100.8. WBCs is 16.2 K, sodium was 126. Urine analysis is negative, coronal varus not detected. Chest x-ray showing basilar atelectasis, with emphysema. Patient was started on Zosyn today as well as normal saline at 75 mL/h. 10/22/2019 Patient still elevated and sedated in the ICU. Probably will go for sedation holiday daily. However his blood gases showing pH 7.4, pCO2 of 55 and low pO2 of 69. Also has low-grade temperature of 99.9 this morning. WBC is improving to 11.6 K. Platelets up to normal 180 6K. Sodium stable at 126. Glucose is controlled 194-211. Sputum culture still pending. Chest x-ray showing increasing right infrahilar opacity with a new left basilar opacity Patient is still on Solu-Medrol, Xarelto, Protonix IV, normal sinus 75 mL and Zosyn. He is also on aspirin and Plavix. Review of Systems: N/a, patient could not provide information Active Medications Generic Name Dose Route Start Last Admin Trade Name Freq PRN Reason Stop Dose Admin Al Hydroxide/Mg Hydroxide 30 ml 10/18/19 11:06 Maalox PO Q4HR PRN Heartburn Albuterol/Ipratropium 3 ml 10/20/19 00:00 10/22/19 07:26 Duoneb 0.5 Mg-3 Mg/3 Ml Soln INHALATION 3 ml RT-Q4H [facility] Administration Aspirin 81 mg 10/18/19 09:00 10/22/19 08:13 Aspirin PO 81 mg DAILY [facility] Administration Atropine Sulfate 0.5 mg 10/18/19 11:06 Atropine IV ONCE PRN Symptomatic Bradycardia Chlorhexidine Gluconate 15 ml 10/20/19 09:00 10/22/19 08:13 Peridex MUCOUS MEM 15 ml BID [facility] Administration Cholecalciferol 1,000 unit 10/17/19 09:00 10/22/19 08:12 Vitamin D3 (25 Mcg = 1000 Iu) PO 1,000 unit DAILY [facility] Administration Clopidogrel Bisulfate 75 mg 10/17/19 09:00 10/22/19 08:12 Plavix PO 75 mg DAILY [facility] Administration Cyanocobalamin 1,000 mcg 10/17/19 09:00 10/22/19 08:13 Vitamin B-12 PO 1,000 mcg DAILY [facility] Administration Hydromorphone HCl 0.5 mg 10/19/19 13:05 10/22/19 04:51 Dilaudid IVP 0.5 mg Q4HR PRN Administration Pain Propofol 1,000 mg/ IV Solution 100 mls @ 0 mls/hr 10/19/19 21:15 10/22/19 09:29 IV 35 mcg/kg/min .Q0M [facility] 26.712 mls/hr Titration Protocol Titrate Norepinephrine Bitartrate 4 mg 254 mls @ 24.003 mls/hr 10/19/19 22:00 10/22/19 03:15 / Sodium Chloride IV Not Given .[id number] [facility] Protocol 0.05 MCG/KG/MIN Sodium Chloride 1,000 mls @ 75 mls/hr 10/21/19 08:45 10/21/19 21:03 Saline 0.9% IV 75 mls/hr .[id number] [facility] Administration Piperacillin Sod/Tazobactam 100 mls @ 25 mls/hr 10/21/19 08:45 10/22/19 07:49 Sod 3.375 gm/ Sodium Chloride IVPB 25 mls/hr Q8HR [facility] Administration Insulin Aspart 0 unit 10/21/19 12:00 10/22/19 05:39 Novolog SQ 5 unit Q6HR [facility] Administration Protocol Insulin Detemir 10 unit 10/17/19 09:00 10/22/19 08:20 Levemir SQ 10 unit DAILY [facility] Administration Isosorbide Mononitrate 60 mg 10/16/19 21:00 10/22/19 08:20 Imdur PO 60 mg BID [facility] Administration Lisinopril 2.5 mg 10/17/19 09:00 10/22/19 08:13 Zestril PO 2.5 mg DAILY [facility] Administration Loratadine 10 mg 10/17/19 09:00 10/22/19 08:12 Claritin PO 10 mg DAILY [facility] Administration Methylprednisolone Sodium Succinate 40 mg 10/20/19 09:00 10/22/19 08:05 Solu-Medrol IV 40 mg Q6H [facility] Administration Metoprolol Tartrate 50 mg 10/20/19 21:00 10/22/19 08:13 Lopressor PO 50 mg BID [facility] Administration Naloxone HCl 0.2 mg 10/19/19 19:58 Narcan IV Q2M PRN Opioid Reversal Nicotine 1 patch 10/16/19 16:45 10/22/19 07:49 Habitrol 21mg/24hr Patch TRANSDERM 1 patch DAILY [facility] Administration Nitroglycerin 0.4 mg 10/16/19 20:24 10/17/19 20:48 Nitrostat SUBLINGUAL 0.4 mg Q5M PRN Administration Chest Pain Pantoprazole Sodium 40 mg 10/20/19 21:00 10/22/19 08:05 Protonix IVP 40 mg BID [facility] Administration Rivaroxaban 15 mg 10/20/19 17:30 10/21/19 17:35 Xarelto PO 15 mg W/SUPPER [facility] Administration Objective - Vital Signs Vital signs: Vital Signs Temp 99.9 F H 10/22/19 08:00 Pulse 82 10/22/19 09:00 Resp 31 H 10/22/19 09:00 BP 117/67 05/22/20 09:00 Pulse Ox 93 L 10/22/19 09:00 Intake & Output 10/21/19 10/22/19 10/22/19 18:59 06:59 18:59 Intake Total 8486.927 4358.282 371.461 Output Total 660 1035 250 Balance 1334.128 765.282 121.461 Weight 127.2 kg Intake: IV 39 970 181 A Line 39 45 6 Piperacillin-Tazobactam 3 100 25 .375 gm In Sodium Chloride 0.9% 100 ml @ 25 mls/hr IVPB Q8HR [facility] Rx# :[id number] Sodium Chloride 0.9% 1, 75 000 ml @ 75 mls/hr IV . [id number] [facility] Rx#:[id number] Sodium Chloride 0.9% 1, 750 150 000 ml @ 75 mls/hr IV . [id number] [facility] Rx#:[id number] Intake, IV Titration 1601.128 499.282 112.461 Amount Piperacillin-Tazobactam 3 200 .375 gm In Sodium Chloride 0.9% 100 ml @ 25 mls/hr IVPB Q8HR [facility] Rx# :[id number] Propofol 1,000 mg In 536.128 499.282 112.461 Empty Bag 1 bag @ Titrate IV .Q0M [facility] Rx#: [id number] Sodium Chloride 0.9% 1, 20 000 ml @ 20 mls/hr IV . Q24H [facility] Rx#:[id number] Sodium Chloride 0.9% 1, 845 000 ml @ 75 mls/hr IV . [id number] [facility] Rx#:[id number] Oral 60 Tube Feeding 264 241 48 Other 30 90 30 Output: Urine 660 1035 250 Other: Voiding Method Indwelling Catheter Indwelling Catheter ABP, PAP, CO, CI - Last Documented Arterial Blood Pressure 125/64 - Exam -GENERAL: The patient is intubated and sedated, not in respiratory acute distress. Obese HEENT: Pupils are round and equally reacting to light. EOMI. No scleral icterus. No conjunctival pallor. Normocephalic, atraumatic. No pharyngeal erythema. No thyromegaly. CARDIOVASCULAR: S1 and S2 present. No murmurs, rubs, or gallops. -PULMONARY: Chest is clear to auscultation, bilateral scattered wheezing or crackles. ABDOMEN: Soft, nontender, nondistended, normoactive bowel sounds. No palpable organomegaly. MUSCULOSKELETAL: No joint swelling or deformity. EXTREMITIES: No cyanosis, clubbing, or pedal edema. NEUROLOGICAL: Gross neurological examination did not reveal any focal deficits. SKIN: No rashes. no petechiae. - Labs CBC & Chem 7: 10/22/19 04:10 10/22/19 04:10 Labs: Abnormal Lab Results - Last 24 Hours (Table) 10/21/19 10/21/19 10/21/19 Range/Units 09:44 11:50 17:31 WBC (3.8-10.6) k/uL RDW (11.5-15.5) % Neutrophils # (1.3-7.7) k/uL Lymphocytes # (1.0-4.8) k/uL ABG pCO2 (35-45) mmHg ABG pO2 (83-108) mmHg ABG HCO3 (21-25) mmol/L ABG Total CO2 (19-24) mmol/L ABG O2 Saturation (94-97) % Sodium (137-145) mmol/L Chloride (98-107) mmol/L Carbon Dioxide (22-30) mmol/L BUN (9-20) mg/dL Glucose (74-99) mg/dL POC Glucose (mg/dL) 202 H 194 H (75-99) mg/dL Urine Protein Trace H (Negative) 10/21/19 10/22/19 10/22/19 Range/Units 23:13 04:10 04:10 WBC 11.6 H (3.8-10.6) k/uL RDW 17.3 H (11.5-15.5) % Neutrophils # 10.0 H (1.3-7.7) k/uL Lymphocytes # 0.8 L (1.0-4.8) k/uL ABG pCO2 (35-45) mmHg ABG pO2 (83-108) mmHg ABG HCO3 (21-25) mmol/L ABG Total CO2 (19-24) mmol/L ABG O2 Saturation (94-97) % Sodium 126 L (137-145) mmol/L Chloride 87 L (98-107) mmol/L Carbon Dioxide 37 H (22-30) mmol/L BUN 27 H (9-20) mg/dL Glucose 189 H (74-99) mg/dL POC Glucose (mg/dL) 211 H (75-99) mg/dL Urine Protein (Negative) 10/22/19 Range/Units 07:26 WBC (3.8-10.6) k/uL RDW (11.5-15.5) % Neutrophils # (1.3-7.7) k/uL Lymphocytes # (1.0-4.8) k/uL ABG pCO2 55 H (35-45) mmHg ABG pO2 64 L (83-108) mmHg ABG HCO3 37 H (21-25) mmol/L ABG Total CO2 39 H (19-24) mmol/L ABG O2 Saturation 92.9 L (94-97) % Sodium (137-145) mmol/L Chloride (98-107) mmol/L Carbon Dioxide (22-30) mmol/L BUN (9-20) mg/dL Glucose (74-99) mg/dL POC Glucose (mg/dL) (75-99) mg/dL Urine Protein (Negative) Microbiology - Last 24 Hours (Table) 10/20/19 04:10 Gram Stain - Final Sputum Sputum Culture - Final 10/21/19 12:00 Gram Stain - Preliminary Sputum Sputum Culture - Preliminary Assessment and Plan Assessment: Acute hypoxemic, hypercapnic respiratory failure. Need a mechanical ventilation. Sepsis secondary to hospital-acquired pneumonia. Chest x-ray showing increasing right infrahilar opacity with a new left basilar opacity Acute COPD exacerbation, with possible elements of obesity hypoventilation syndrome Non-STEMI, status post coronary angiogram and PCI with successful stenting of the mid RCA., And second coronary angiogram with stenting of first obtuse marginal branch of circumflex artery hyponatremia Nicotine dependence Substance abuse wit marijuana Obesity with BMI of 37 type 2 diabetes mellitus with diabetic neuropathy and arms and legs, with hyperglycemia Hypertension Hyperlipidemia Chronic heart failure Chronic hypoxic respiratory failure on 2-2.5 L via nasal cannula oxygen COPD, not an active issue GERD History of pulmonary embolism, on Xarelto 15 Jacqueline daily History of prostate cancer Plan: This is a pleasant 58 years old male who presents because of chest pain. Patient developed respiratory failure and got intubated and went to the ICU. Continue with pulmonary/critical care team consultation will manage and his vent. Continue on aspirin, Plavix as per cardiology recommendation. Xarelto is restarted. Continue with steroids. Continue with Protonix. Agree with Zosyn. Continue with normal saline and follow-up sodium level Labs and medication were reviewed.. Continue same treatment. Continue with symptomatic treatment. Resume home medication. Monitor lytes and vitals. DVT and GI prophylaxis. Further recommendations of the clinical course of the patient DVT prophylaxis: Xarelto GI Prophylaxis: Ppi Prognosis is guarded
--- NOTE | 2019-10-22 12:08 | P.PN ---
Subjective Progress Note Date: 10/22/19 Principal diagnosis: Acute hypoxic and hypercapnic respiratory failure, multifactorial. This is a 58-year-old white male, familiar to my service, known history of severe COPD, saw the patient for the first time on 07/03/2017, and I saw him back then mostly for an acute exacerbation of COPD. Patient was treated mostly with bronchodilators, antibiotics, steroids, and he was discharged home. Since then I have seen the patient on outpatient basis, and the last evaluation was via phone visit/telemedicine about 2 weeks ago. Patient had mostly symptoms of COPD exacerbation, treated with prednisone and doxycycline and advised to continue his bronchodilators. He was also advised to stop smoking. At any rate on 10/16/19, patient presented to the emergency room with chest pain consistent with acute coronary syndrome. He was seen by cardiology on consultation, and the patient had a previous stenting of the left circumflex coronary artery. Patient was treated with aspirin, heparin, nitroglycerin, and he underwent cardiac catheterization by Dr. Camilo. This was done on 10/18, and the patient underwent stenting of the first obtuse marginal branch of the left circumflex. This was successful, patient was placed on dual antiplatelet therapy, and advised to have aggressive cholesterol control. Last night, the patient developed worsening pulmonary status, he was noted to have profound shortness of breath, and he became obtunded with significant hypercapnia and hypoxia. Tried on BiPAP, and apparently his ABG was getting worse. Hence I was notified about this patient, and I recommended immediate transfer to the intensive care unit and intubation. Patient was intubated, and I was asked to see him on consultation. ABG before intubation showed a pO2 of 84, pCO2 of 120 and pH of 7.16. This morning ABG showed a pO2 of 53 pCO2 of 63 and pH of 7.40. Hence his FiO2 was increased from 60% to 70%, and his PEEP was increased to 8. Patient is now on mechanical venti lation, and his assist-control rate is 28, tidal volume is 500, FiO2 is 70%, and PEEP is 8. Chest x-ray showed evidence of interstitial edema, hence I recommended Lasix 40 mg IV push 1. And I cut down his IV fluid to KVO. Patient is on propofol at 60 mcg/kg/m, he was on norepinephrine which has been discontinued after the patient responded to fluid boluses last night. Patient was reevaluated today on 10/21/19, patient remains in the intensive care unit, intubated, mechanically ventilated. He is on assist control rate of 28 tidal volume is 500 FiO2 is 60% and PEEP was 8 however I increased the PEEP up to 10. Patient remains on propofol at 45 mcg/kg/m, not requiring norepinephrine today, his IV fluid is 0.9 at 20 mL per hour. Patient's ABG showed a pO2 of 65 pCO2 of 55 pH of 7.43. Patient had low-grade fever overnight, he is in sinus rhythm rate of 98. Sputum Cultures are nondiagnostic so far. Basic metabolic profile showed a low sodium of 126, could very well be related to diuresis yesterday, hence we'll restart the patient on 0.9 normal saline at 75 mL per hour today. Patient is in definite negative fluid balance. Echocardiogram was ordered today to assess his LV function. Chest x-ray showed mostly subsegmental basilar atelectasis, improved compared to the chest x-ray done yesterday Patient was reevaluated today on 10/22/19, patient remains in the ICU, intubated, mechanically ventilated, and his ABG remains marginal with a pO2 of 64 pCO2 of 55 and pH of 7.43. Patient is on assist control mode of mechanical ventilation rate of 28 tidal volume is 500 FiO2 is 60% and I cut it down to 55% and PEEP is at 10. Patient remains on propofol at 25 mcg/kg/m, he is off norepinephrine, IV fluid at 75 mL per hour. His urine output is over 100 mL per hour. Patient is in slightly positive fluid balance. He is on enteral feeding, and it is at goal. Chest x-ray showed minimal atelectasis and interstitial edema at the bases. Hence cut down his IV fluid to KVO, did not recommend any diuretics at this point yet. Patient had a low-grade fever last night and this morning with a temp of 99.9. WBC count is improving. Sodium is a bit low at 126. Sputum cultures are pending. In the meantime the patient remains on Zosyn. Objective - Vital Signs Vital signs: Vital Signs Temp 99.9 F H 10/22/19 08:00 Pulse 78 10/22/19 11:37 Resp 23 10/22/19 11:00 BP 117/67 10/22/19 09:00 Pulse Ox 90 L 05/22/20 11:00 Intake & Output 10/21/19 10/22/19 10/22/19 18:59 06:59 18:59 Intake Total 1967.650 0050.282 657.093 Output Total 660 1035 600 Balance 1334.128 765.282 57.093 Weight 127.2 kg Intake: IV 39 970 410 A Line 39 45 15 Piperacillin-Tazobactam 3 100 100 .375 gm In Sodium Chloride 0.9% 100 ml @ 25 mls/hr IVPB Q8HR [facility] Rx# :[id number] Sodium Chloride 0.9% 1, 750 295 000 ml @ 20 mls/hr IV . Q24H [facility] Rx#:[id number] Sodium Chloride 0.9% 1, 75 000 ml @ 75 mls/hr IV . [id number] [facility] Rx#:[id number] Intake, IV Titration 1601.128 499.282 120.093 Amount Piperacillin-Tazobactam 3 200 .375 gm In Sodium Chloride 0.9% 100 ml @ 25 mls/hr IVPB Q8HR [facility] Rx# :[id number] Propofol 1,000 mg In 536.128 499.282 120.093 Empty Bag 1 bag @ Titrate IV .Q0M [facility] Rx#: [id number] Sodium Chloride 0.9% 1, 20 000 ml @ 20 mls/hr IV . Q24H [facility] Rx#:[id number] Sodium Chloride 0.9% 1, 845 000 ml @ 20 mls/hr IV . Q24H [facility] Rx#:[id number] Oral 60 Tube Feeding 264 241 97 Other 30 90 30 Output: Urine 660 1035 600 Other: Voiding Method Indwelling Catheter Indwelling Catheter Indwelling Catheter ABP, PAP, CO, CI - Last Documented Arterial Blood Pressure 106/58 - Exam GENERAL EXAM: Revealed a 58-year-old white male intubated and mechanically ventilated. HEAD: Normocephalic/atraumatic. Endotracheal tube and orogastric tube are intact. EYES: Normal reaction of pupils, equal size. Conjunctiva pink, sclera white. NOSE: Clear with pink turbinates. THROAT: No erythema or exudates. NECK: No masses, no JVD, no thyroid enlargement, no adenopathy. CHEST: Symmetrical chest expansion. LUNGS: Diminished breath sound bilaterally no rhonchi no wheezes, minimal crackles at the bases CVS: Regular rate and rhythm, normal S1 and S2, no gallops, no murmurs, no rubs ABDOMEN: Obese, Soft, nontender. No hepatosplenomegaly, normal bowel sounds, no guarding or rigidity. EXTREMITIES: No clubbing, 1+ edema in bilateral lower extremities, no cyanosis, 2+ pulses and upper and lower extremities. MUSCULOSKELETAL: No deformities. SPINE: No scoliosis or deformity SKIN: No rashes CENTRAL NERVOUS SYSTEM: Patient is sedated on propofol, could not be assessed. PSYCHIATRIC: Could not be assessed. - Labs CBC & Chem 7: 10/22/19 04:10 10/22/19 04:10 Labs: Abnormal Lab Results - Last 24 Hours (Table) 10/21/19 10/21/19 10/22/19 Range/Units 17:31 23:13 04:10 WBC 11.6 H (3.8-10.6) k/uL RDW 17.3 H (11.5-15.5) % Neutrophils # 10.0 H (1.3-7.7) k/uL Lymphocytes # 0.8 L (1.0-4.8) k/uL ABG pCO2 (35-45) mmHg ABG pO2 (83-108) mmHg ABG HCO3 (21-25) mmol/L ABG Total CO2 (19-24) mmol/L ABG O2 Saturation (94-97) % Sodium (137-145) mmol/L Chloride (98-107) mmol/L Carbon Dioxide (22-30) mmol/L BUN (9-20) mg/dL Glucose (74-99) mg/dL POC Glucose (mg/dL) 194 H 211 H (75-99) mg/dL 10/22/19 10/22/19 Range/Units 04:10 07:26 WBC (3.8-10.6) k/uL RDW (11.5-15.5) % Neutrophils # (1.3-7.7) k/uL Lymphocytes # (1.0-4.8) k/uL ABG pCO2 55 H (35-45) mmHg ABG pO2 64 L (83-108) mmHg ABG HCO3 37 H (21-25) mmol/L ABG Total CO2 39 H (19-24) mmol/L ABG O2 Saturation 92.9 L (94-97) % Sodium 126 L (137-145) mmol/L Chloride 87 L (98-107) mmol/L Carbon Dioxide 37 H (22-30) mmol/L BUN 27 H (9-20) mg/dL Glucose 189 H (74-99) mg/dL POC Glucose (mg/dL) (75-99) mg/dL Microbiology - Last 24 Hours (Table) 10/20/19 04:10 Gram Stain - Final Sputum Sputum Culture - Final 10/21/19 12:00 Gram Stain - Preliminary Sputum Sputum Culture - Preliminary Assessment and Plan Assessment: Impression: Acute hypoxic and hypercapnic respiratory failure secondary to severe COPD exacerbation and suspect acute on chronic diastolic congestive heart failure. Acute non-ST elevation myocardial infarction, status post stenting of first obtuse marginal branch of left circumflex. History of severe peripheral neuropathy History of previous myocardial infarction and underlying coronary artery disease Nicotine dependence syndrome. History of prostate cancer, radical prostatectomy in 2001 History of dyslipidemia History of pulmonary embolism History of obstructive sleep apnea syndrome noncompliant with CPAP. History of type 2 diabetes with peripheral neuropathy History of GERD and esophagitis History of benign essential hypertension Hyponatremia, most likely secondary to diuretics./Hypovolemic, hyponatremia. Diuretics are presently on hold. Recommendation: Continue ventilatory support, will interrupt sedation today and assess mental status mostly. Daily interruption of sedation and assessment of mental status, patient is not ready for weaning at this point Considering his ABG. And considering that he remains on relatively high FiO2. And high PEEP. Echocardiogram was reviewed. Continue cardiac meds Continue bronchodilators and steroids Continue GI and DVT prophylaxis Continue enteral feeding Continue to hold diuretics. Continue dual antiplatelet therapy Continue insulin for glucose control. We'll continue to follow. Critical care time is 33 minutes. Time with Patient: Greater than 30
[2019-10-22] MEDS: SODIUM CHLORIDE 0.9% 1,000 ML IV SCH (12:51)
[2019-10-22 12:56] LABS: Glucose,Whole Blood 215 mg/dL (75-99)
--- NOTE | 2019-10-22 16:35 | PN ---
PROGRESS NOTE CHEST, TWO VIEWS A 58-year-old gentleman who is admitted to hospital with acute coronary syndrome, underwent angioplasty, subsequently developed respiratory failure. He is currently intubated on vent. On exam, heart rate is 80 beats per minute. Blood pressure is 106/50, respiratory rate is 18. Chest exam reveals diminished air entry at the bases with occasional rhonchi. Heart exam reveals first and second heart sounds. No gallop. Exam of extremities reveals mild edema. Peripheral pulses are felt. Labs show a potassium of 4.7, creatinine is 0.76. Blood gases reveal a pH of 7.4, pCO2 of 55, PO2 of 64. Hemoglobin is 13.5, platelet count is 186. ASSESSMENT: 1. Coronary artery disease, status post multivessel angioplasty. 2. Respiratory failure. 3. History of persistent atrial fibrillation. PLAN: Patient is currently on aspirin, Plavix, Xarelto 15 mg daily, Imdur 60 b.i.d., Zestril and Lopressor which he is going to continue. MMODL / IJN: [id number] /
[2019-10-22] MEDS: RIVAROXABAN 15 MG TAB PO SCH (17:56)
[2019-10-22 18:01] LABS: Glucose,Whole Blood 186 mg/dL (75-99)
[2019-10-22 23:09] LABS: Glucose,Whole Blood 193 mg/dL (75-99)
[2019-10-23] MEDS: IPRATROPIUM-ALBUTEROL 3 ML NEB INHALATION SCH ×6 (00:31→20:25)
[2019-10-23] MEDS: PROPOFOL 1,000 MG in EMPTY BAG 1 BAG IV SCH ×9 (01:25→22:17)
[2019-10-23] MEDS: methylPREDNISolone SOD SUCCI 40 MG/ML 1 ML VIAL IV SCH ×4 (02:34→20:32)
[2019-10-23] MEDS: HYDROmorphone 0.5 MG/0.5 ML SYRINGE IVP PRN ×2 (04:13→08:28)
[2019-10-23 04:32] LABS: African American GFR (CKD) >90 (>60 ml/min/1.73 sqM); Anion Gap 6 mmol/L; Blood Urea Nitrogen 27 mg/dL (9-20); Calcium 8.7 mg/dL (8.4-10.2); Carbon Dioxide 34 mmol/L (22-30); Chloride 89 mmol/L (98-107); Glucose 217 mg/dL (74-99); Non-African American GFR(CKD) >90 (>60 ml/min/1.73 sqM); Potassium 4.9 mmol/L (3.5-5.1); Sodium 129 mmol/L (137-145)
[2019-10-23 05:11] LABS: Anisocytosis Slight; Basophils % (A) 0 %; Eosinophils % (A) 0 %; HCT 43.8 % (39.0-53.0); Lymphocytes # (A) 0.6 k/uL (1.0-4.8); Lymphocytes % (A) 7 %; MCHC 31.9 g/dL (31.0-37.0); MCV 94.2 fL (80.0-100.0); Monocytes # (A) 0.4 k/uL (0-1.0); Monocytes % (A) 5 %; Neutrophils # (A) 7.2 k/uL (1.3-7.7); Neutrophils % (A) 86 %; Platelet Count 192 k/uL (150-450); RBC 4.66 m/uL (4.30-5.90); WBC 8.3 k/uL (3.8-10.6)
[2019-10-23 05:14] LABS: Glucose,Whole Blood 216 mg/dL (75-99)
[2019-10-23] MEDS: INSULIN ASPART (NovoLOG) 100 UNIT/ML VIAL SQ SCH ×3 (05:16→18:16)
--- NOTE | 2019-10-23 07:12 | XR ---
EXAMINATION TYPE: XR chest 1V portable DATE OF EXAM: 10/23/2019 COMPARISON: Prior chest x-ray 10/22/2019 HISTORY: Intubated TECHNIQUE: Single frontal view of the chest is obtained. FINDINGS: Pleural parenchymal changes are similar. Endotracheal tube and NG tube are overlying appro priate positions as on prior exam. Heart is unchanged. No evident pneumothorax or pleural effusion. B ibasilar increased attenuation shows a similar appearance. There are overlying cardiac leads. IMPRESSION: Probable subsegmental basilar atelectatic changes, correlate to exclude pneumonia.
[2019-10-23 07:38] LABS: ABG Base Excess 9.5 mmol/L; ABG HCO3 34 mmol/L (21-25); ABG Oxygen Saturation 92.7 % (94-97); ABG PCO2 55 mmHg (35-45); ABG PO2 67 mmHg (83-108); ABG TCO2 36 mmol/L (19-24)
[2019-10-23] MEDS: PIPERACILLIN-TAZOBACTAM 3.375 GM in SODIUM CHLORIDE 0.9% 100 ML IVPB SCH ×2 (07:45→16:16)
[2019-10-23] MEDS: PANTOPRAZOLE 40 MG/10 ML VIAL IVP SCH ×2 (08:02→20:32)
[2019-10-23] MEDS: INSULIN DETEMIR (LEVEMIR) 100 UNIT/ML SYR SQ SCH (08:15)
[2019-10-23] MEDS: METOPROLOL TARTRATE 50 MG TAB PO SCH ×2 (08:17→20:32)
[2019-10-23] MEDS: CHOLECALCIFEROL 1,000 UNIT TAB PO SCH (08:17)
[2019-10-23] MEDS: NICOTINE 21MG/24HR PATCH TRANSDERM SCH (08:17)
[2019-10-23] MEDS: LORATADINE 10 MG TAB PO SCH (08:17)
[2019-10-23] MEDS: CYANOCOBALAMIN 500 MCG TAB PO SCH (08:17)
[2019-10-23] MEDS: LISINOPRIL 2.5 MG TAB PO SCH (08:17)
[2019-10-23] MEDS: ASPIRIN 81 MG PO SCH (08:17)
[2019-10-23] MEDS: CLOPIDOGREL 75 MG TAB PO SCH (08:17)
[2019-10-23] MEDS: CHLORHEXIDINE GLUCONATE 15 ML CUP MUCOUS MEM SCH ×2 (08:18→20:32)
[2019-10-23] MEDS: ISOSORBIDE MONONITRATE ER 60 MG TAB.ER.24H PO SCH ×2 (10:11→20:32)
--- NOTE | 2019-10-23 11:09 | XR ---
Abdomen HISTORY: Abdominal distention Frontal view the abdomen submitted on 2 images NG tube is present, distal tip overlying the distal stomach level or proximal small bowel. Patient is slightly rotated. Degenerative disc changes are present in the visualized spine. Right femoral autumn ter is noted. No evident pneumoperitoneum or bowel obstruction. Lung bases and right hemiabdomen are not entirely included in the exam. IMPRESSION: Postprocedural changes. No evident bowel obstruction, limitations as described.
[2019-10-23] MEDS: METOCLOPRAMIDE 5 MG/ML 2 ML VIAL IVP SCH ×2 (12:08→18:23)
[2019-10-23] MEDS: SODIUM CHLORIDE 0.9% 1,000 ML IV SCH (12:09)
[2019-10-23] MEDS: NOREPINEPHRINE 4 MG in SODIUM CHLORIDE 0.9% 250 ML IV SCH ×2 (12:10→21:40)
[2019-10-23 12:19] LABS: Glucose,Whole Blood 198 mg/dL (75-99)
--- NOTE | 2019-10-23 12:49 | P.PN ---
Subjective Progress Note Date: 10/23/19 Principal diagnosis: Acute hypoxic and hypercapnic respiratory failure, multifactorial. This is a 58-year-old white male, familiar to my service, known history of severe COPD, saw the patient for the first time on 07/03/2017, and I saw him back then mostly for an acute exacerbation of COPD. Patient was treated mostly with bronchodilators, antibiotics, steroids, and he was discharged home. Since then I have seen the patient on outpatient basis, and the last evaluation was via phone visit/telemedicine about 2 weeks ago. Patient had mostly symptoms of COPD exacerbation, treated with prednisone and doxycycline and advised to continue his bronchodilators. He was also advised to stop smoking. At any rate on 10/16/19, patient presented to the emergency room with chest pain consistent with acute coronary syndrome. He was seen by cardiology on consultation, and the patient had a previous stenting of the left circumflex coronary artery. Patient was treated with aspirin, heparin, nitroglycerin, and he underwent cardiac catheterization by Dr. Camilo. This was done on 10/18, and the patient underwent stenting of the first obtuse marginal branch of the left circumflex. This was successful, patient was placed on dual antiplatelet therapy, and advised to have aggressive cholesterol control. Last night, the patient developed worsening pulmonary status, he was noted to have profound shortness of breath, and he became obtunded with significant hypercapnia and hypoxia. Tried on BiPAP, and apparently his ABG was getting worse. Hence I was notified about this patient, and I recommended immediate transfer to the intensive care unit and intubation. Patient was intubated, and I was asked to see him on consultation. ABG before intubation showed a pO2 of 84, pCO2 of 120 and pH of 7.16. This morning ABG showed a pO2 of 53 pCO2 of 63 and pH of 7.40. Hence his FiO2 was increased from 60% to 70%, and his PEEP was increased to 8. Patient is now on mechanical venti lation, and his assist-control rate is 28, tidal volume is 500, FiO2 is 70%, and PEEP is 8. Chest x-ray showed evidence of interstitial edema, hence I recommended Lasix 40 mg IV push 1. And I cut down his IV fluid to KVO. Patient is on propofol at 60 mcg/kg/m, he was on norepinephrine which has been discontinued after the patient responded to fluid boluses last night. Patient was reevaluated today on 10/21/19, patient remains in the intensive care unit, intubated, mechanically ventilated. He is on assist control rate of 28 tidal volume is 500 FiO2 is 60% and PEEP was 8 however I increased the PEEP up to 10. Patient remains on propofol at 45 mcg/kg/m, not requiring norepinephrine today, his IV fluid is 0.9 at 20 mL per hour. Patient's ABG showed a pO2 of 65 pCO2 of 55 pH of 7.43. Patient had low-grade fever overnight, he is in sinus rhythm rate of 98. Sputum Cultures are nondiagnostic so far. Basic metabolic profile showed a low sodium of 126, could very well be related to diuresis yesterday, hence we'll restart the patient on 0.9 normal saline at 75 mL per hour today. Patient is in definite negative fluid balance. Echocardiogram was ordered today to assess his LV function. Chest x-ray showed mostly subsegmental basilar atelectasis, improved compared to the chest x-ray done yesterday Patient was reevaluated today on 10/22/19, patient remains in the ICU, intubated, mechanically ventilated, and his ABG remains marginal with a pO2 of 64 pCO2 of 55 and pH of 7.43. Patient is on assist control mode of mechanical ventilation rate of 28 tidal volume is 500 FiO2 is 60% and I cut it down to 55% and PEEP is at 10. Patient remains on propofol at 25 mcg/kg/m, he is off norepinephrine, IV fluid at 75 mL per hour. His urine output is over 100 mL per hour. Patient is in slightly positive fluid balance. He is on enteral feeding, and it is at goal. Chest x-ray showed minimal atelectasis and interstitial edema at the bases. Hence cut down his IV fluid to KVO, did not recommend any diuretics at this point yet. Patient had a low-grade fever last night and this morning with a temp of 99.9. WBC count is improving. Sodium is a bit low at 126. Sputum cultures are pending. In the meantime the patient remains on Zosyn. Reevaluated today on 10/23/19, patient remains intubated and mechanically ventilated. His ventilator settings are assist control rate of 28 tidal volume is 500 FiO2 is 55% and PEEP is at 10. ABG remains marginal with a pO2 of 67 pCO2 of 55 pH of 7.40. Patient is on propofol at 60 mcg/kg/m. He is on enteral feeding but presently on hold because of intermittent nausea hence I recommended Reglan and recommended a flat plate of the abdomen. Patient is arousable with lower dose of propofol, and he follows simple instructions. Chest x-ray showed increased infiltrate or atelectasis in the right lower lobe, otherwise no major change on the chest x-ray. His labs were reviewed, sodium is a bit better with sodium of 129 today. Patient remains with good urine output over 100 mL per hour. Overall not much of a change except for maybe a slight improvement in his ABG, but based on the ABG is not ready for weaning.. Patient remains on relatively high FiO2 and high PEEP. Objective - Vital Signs Vital signs: Vital Signs Temp 98.3 F 10/23/19 12:00 Pulse 75 10/23/19 12:00 Resp 31 H 10/23/19 12:00 BP 113/71 10/23/19 12:00 Pulse Ox 90 L 10/23/19 12:00 Intake & Output 10/22/19 10/23/19 10/23/19 18:59 06:59 18:59 Intake Total 0667.100 9932.611 590.000 Output Total 1350 1535 590 Balance -114.421 -166.389 0 Weight 127.2 kg 126.6 kg Intake: IV 571 376 248 A Line 36 36 18 Piperacillin-Tazobactam 3 100 100 100 .375 gm In Sodium Chloride 0.9% 100 ml @ 25 mls/hr IVPB Q8HR [facility] Rx# :[id number] Sodium Chloride 0.9% 1, 435 240 130 000 ml @ 20 mls/hr IV . Q24H [facility] Rx#:[id number] Intake, IV Titration 297.579 566.611 200.000 Amount Propofol 1,000 mg In 297.579 566.611 200.000 Empty Bag 1 bag @ Titrate IV .Q0M [facility] Rx#: [id number] Tube Feeding 277 336 112 Other 90 90 30 Output: Urine 1350 1535 590 Other: Voiding Method Indwelling Catheter Indwelling Catheter Indwelling Catheter ABP, PAP, CO, CI - Last Documented Arterial Blood Pressure 118/60 - Exam GENERAL EXAM: Revealed a 58-year-old white male intubated and mechanically ventilated. HEAD: Normocephalic/atraumatic. Endotracheal tube and orogastric tube are intact. EYES: Normal reaction of pupils, equal size. Conjunctiva pink, sclera white. NOSE: Clear with pink turbinates. THROAT: No erythema or exudates. NECK: No masses, no JVD, no thyroid enlargement, no adenopathy. CHEST: Symmetrical chest expansion. LUNGS: Minimal crackles at the bases no rhonchi and no wheezes. CVS: Regular rate and rhythm, normal S1 and S2, no gallops, no murmurs, no rubs ABDOMEN: Obese, Soft, nontender. No hepatosplenomegaly, normal bowel sounds, no guarding or rigidity. EXTREMITIES: No clubbing, 1+ edema in bilateral lower extremities, no cyanosis, 2+ pulses and upper and lower extremities. MUSCULOSKELETAL: No deformities. SPINE: No scoliosis or deformity SKIN: No rashes CENTRAL NERVOUS SYSTEM: Patient is arousable, follows simple instructions. But kept on propofol today. PSYCHIATRIC: Could not be assessed. - Labs CBC & Chem 7: 10/23/19 04:15 10/23/19 04:15 Labs: Abnormal Lab Results - Last 24 Hours (Table) 10/22/19 10/22/19 10/22/19 Range/Units 12:53 17:58 23:07 RDW (11.5-15.5) % Lymphocytes # (1.0-4.8) k/uL ABG pCO2 (35-45) mmHg ABG pO2 (83-108) mmHg ABG HCO3 (21-25) mmol/L ABG Total CO2 (19-24) mmol/L ABG O2 Saturation (94-97) % Sodium (137-145) mmol/L Chloride (98-107) mmol/L Carbon Dioxide (22-30) mmol/L BUN (9-20) mg/dL Glucose (74-99) mg/dL POC Glucose (mg/dL) 215 H 186 H 193 H (75-99) mg/dL 10/23/19 10/23/19 10/23/19 Range/Units 04:15 04:15 05:12 RDW 17.0 H (11.5-15.5) % Lymphocytes # 0.6 L (1.0-4.8) k/uL ABG pCO2 (35-45) mmHg ABG pO2 (83-108) mmHg ABG HCO3 (21-25) mmol/L ABG Total CO2 (19-24) mmol/L ABG O2 Saturation (94-97) % Sodium 129 L (137-145) mmol/L Chloride 89 L (98-107) mmol/L Carbon Dioxide 34 H (22-30) mmol/L BUN 27 H (9-20) mg/dL Glucose 217 H (74-99) mg/dL POC Glucose (mg/dL) 216 H (75-99) mg/dL 10/23/19 10/23/19 Range/Units 07:34 12:17 RDW (11.5-15.5) % Lymphocytes # (1.0-4.8) k/uL ABG pCO2 55 H (35-45) mmHg ABG pO2 67 L (83-108) mmHg ABG HCO3 34 H (21-25) mmol/L ABG Total CO2 36 H (19-24) mmol/L ABG O2 Saturation 92.7 L (94-97) % Sodium (137-145) mmol/L Chloride (98-107) mmol/L Carbon Dioxide (22-30) mmol/L BUN (9-20) mg/dL Glucose (74-99) mg/dL POC Glucose (mg/dL) 198 H (75-99) mg/dL Microbiology - Last 24 Hours (Table) 10/21/19 12:00 Gram Stain - Final Sputum Sputum Culture - Final 10/21/19 15:20 Blood Culture - Preliminary Blood No Growth after 24 hours 10/20/19 04:10 Gram Stain - Final Sputum Sputum Culture - Final Assessment and Plan Assessment: Impression: Acute hypoxic and hypercapnic respiratory failure secondary to severe COPD exacerbation and suspect acute on chronic diastolic congestive heart failure. Acute non-ST elevation myocardial infarction, status post stenting of first obtuse marginal branch of left circumflex. History of severe peripheral neuropathy History of previous myocardial infarction and underlying coronary artery disease Nicotine dependence syndrome. History of prostate cancer, radical prostatectomy in 2001 History of dyslipidemia History of pulmonary embolism History of obstructive sleep apnea syndrome noncompliant with CPAP. History of type 2 diabetes with peripheral neuropathy History of GERD and esophagitis History of benign essential hypertension Hyponatremia, most likely secondary to diuretics./Hypovolemic, hyponatremia. We will continue to hold diuretics. Possible ileus based on the fact that the patient has no bowel movements, and he has intermittent episodes of nausea, rule out small bowel obstruction. Flatplate of the abdomen showed no evidence of bowel obstruction. Recommendation: Continue ventilatory support, will interrupt sedation today and assess mental status mostly. Daily interruption of sedation and assessment of mental status, patient is not ready for weaning at this point Considering his ABG. And considering that he remains on relatively high FiO2. And high PEEP. Continue cardiac meds, continue anticoagulation therapy with his history of pul monary embolism. Continue bronchodilators and steroids Continue GI and DVT prophylaxis Continue enteral feeding Continue to hold diuretics. Continue dual antiplatelet therapy Continue insulin for glucose control. Critical care time is 35 minutes, not ready for any form of weaning at this point. I did order flatplate of the abdomen, and started the patient on Reglan. Time with Patient: Greater than 30
[2019-10-23] MEDS ORDERED: LACTULOSE 20 GM/30 ML CUP PO PRN (14:11)
[2019-10-23 18:13] LABS: Glucose,Whole Blood 184 mg/dL (75-99)
[2019-10-23] MEDS: RIVAROXABAN 15 MG TAB PO SCH (18:14)
[2019-10-23] MEDS: CLOTRIMAZOLE 1% CREAM 15 GM TUBE TOPICAL SCH (20:32)
[2019-10-23] MEDS: DOCUSATE ORAL SOLN 100 MG/10 ML CUP PO SCH (20:32)
--- NOTE | 2019-10-23 21:00 | PN ---
PROGRESS NOTE DATE OF SERVICE: 10/23/2019 This 58-year-old gentleman who was admitted initially with non ST segment elevation myocardial infarction, also had possible COPD, acute exacerbation, bilateral pneumonia, right more than the left with acute hypoxic hypercarbic respiratory failure. Patient on mechanical ventilation. Patient being closely monitored. The tube feeds are on hold today per Dr. Sidhu's recommendations. Plane abdomen is being checked at this time. The most recent chest x-ray was reviewed personally by me and showed significant lesions mainly in the right lower lobe at this time. The patient on broad- spectrum IV antibiotics. As far as the cultures are concerned, they are negative so far. The ABGs are noted. Sodium is 129. Blood sugars are being monitored. PAST MEDICAL HISTORY: Reviewed. REVIEW OF SYMPTOMS: Review of systems could not be taken. The patient mechanically ventilated and sedated. MEDICATIONS: Current medications reviewed and include: 1. Maalox 30 mL q.4 p.r.n. 2. DuoNeb q.i.d. 3. Aspirin 81 mg. 4. Troponin. 5. Peridex. 6. Vitamin D3. 7. Plavix 75 mg p.o. daily. 8. Lotrimin. 9. Vitamin B12 1000 mcg p.o. daily. 10.Colace. 11.NovoLog. 12.Levemir. 13.Imdur. 15.Zestril. 16.Claritin. 17.Solu-Medrol. 18.Reglan. 19.Lopressor. 20.Narcan. 21.Habitrol 21. 22.Nitrostat. 23.Zosyn 3.375 IV q.8. 24.Xarelto 15 mg p.o. supper. PHYSICAL EXAMINATION: Patient is alert, oriented x3. Pulse 78. Blood pressure is 132/64. Respirations 20, temperature normal. Pulse ox 94% on room air. HEENT: Conjunctivae normal. Oral mucosa moist. NECK is no jugular venous distention. No carotid bruit. No lymph node enlargement. CARDIOVASCULAR S1, S2 muffled. RESPIRATION: Breath sounds diminished in the bases. A few scattered rhonchi and crackles. ABDOMEN: Soft, nontender. LEGS: No edema. No swelling. NERVOUS SYSTEM: Diffusely weak. LAB: Investigations at this time shows WBC 8.2, hemoglobin 14, ABGs noted. Sodium 120, potassium 4.9. ASSESSMENT: 1. Acute [id number]-elevation myocardial infarction status post PCI with stenting of the mid RCA and 2nd angiogram with stenting of the 1st obtuse marginal branch of circumflex artery. 2. Bilateral pneumonia possibly hospital acquired, possibly aspiration pneumonia with acute hypoxic hypercapnic respiratory failure on mechanical ventilation. 3. Change in mental status, metabolic encephalopathy, multifactorial. 4. Chronic obstructive pulmonary disease acute exacerbation. 5. Obesity hypoventilation syndrome. 6. Hyponatremia. 7. History of nicotine dependence. 8. History of substance abuse with marijuana. 9. History of obesity, BMI of 37. 10.Diabetes mellitus type 2, diabetic neuropathy. 11.Hypertension. 12.Hyperlipidemia. 13.Congestive heart failure, chronic. 14.Chronic hypoxic respiratory failure 2 to 2.5 nasal cannula at home. 15.Gastroesophageal reflux disease. 16.History of pulmonary embolism on Xarelto 15 mg. 17.History of prostate cancer. 18.Hyponatremia. 19.FULL CODE. 20.History of MRSA VRE. 21.History of asthma/chronic obstructive pulmonary disease. 22.History of anxiety, depression. RECOMMENDATIONS AND DISCUSSION: This 58-year-old gentleman who presented with multiple complex medical issues, we will monitor the patient closely, continue the current medications, management and symptomatic treatment. Continue with mechanical ventilation. Otherwise I would recommend repeat labs. Continue with empiric antibiotics. Closely follow with Dr. Sidhu. The patient had COVID-19 test at the time of admission which was negative. Again troponin was slightly elevated at the time of admission. Otherwise, overall prognosis remains extremely guarded and continue to monitor. Patient followed in the [facility] in the outpatient setting. Further recommendations to follow. Discussed with staff. TEMI / SANJUANITAN: [id number] / SHANNON
--- NOTE | 2019-10-23 22:48 | P.PN ---
Subjective Patient is intubated at this time. He remains intubated for the last several days. He suffered a non-ST elevation [place] and underwent stenting of the first obtuse marginal of the left circumflex a subsequently had respiratory failure requiring intubation He has underlying severe COPD His LV function is preserved He has obstructive sleep apnea noncompliance with a CPAP treatment, type 2 diabetes, hypertension White count is normal sodium is low 129 potassium 4.9 BUN 27 Impression Non-Q-wave myocardial infarction Acute and chronic respiratory failure At this time the persistence of respiratory failure in the setting of a normal LV function and the presence of severe hypoxia cannot be explained from cardiac causes or any form of heart failure This is predominantly pulmonary in nature I would recommend continuing all his cardiac medications and watching his intake output over the days since he is receiving Zosyn Avoid overhydration Objective - Vital Signs Vital signs: Vital Signs Temp 98.3 F 10/23/19 20:00 Pulse 82 10/23/19 22:00 Resp 30 H 10/23/19 22:00 BP 125/73 10/23/19 16:00 Pulse Ox 92 L 10/23/19 22:00 Intake & Output 10/23/19 10/23/19 10/24/19 06:59 18:59 06:59 Intake Total 8568.048 3554.571 451.988 Output Total 1535 1255 745 Balance -166.389 -246.429 -293.012 Weight 126.6 kg Intake: IV 376 411 117 A Line 36 36 12 Piperacillin-Tazobactam 3 100 125 25 .375 gm In Sodium Chloride 0.9% 100 ml @ 25 mls/hr IVPB Q8HR [facility] Rx# :[id number] Sodium Chloride 0.9% 1, 240 250 80 000 ml @ 20 mls/hr IV . Q24H [facility] Rx#:[id number] Intake, IV Titration 566.611 399.571 192.988 Amount Propofol 1,000 mg In 566.611 399.571 192.988 Empty Bag 1 bag @ Titrate IV .Q0M [facility] Rx#: [id number] Tube Feeding 336 168 112 Other 90 30 30 Output: Urine 1535 1255 745 Other: Voiding Method Indwelling Catheter Indwelling Catheter Indwelling Catheter # Bowel Movements 1 ABP, PAP, CO, CI - Last Documented Arterial Blood Pressure 130/68 - Labs CBC & Chem 7: 10/23/19 04:15 10/23/19 04:15 Labs: Abnormal Lab Results - Last 24 Hours (Table) 10/22/19 10/23/19 10/23/19 Range/Units 23:07 04:15 04:15 RDW 17.0 H (11.5-15.5) % Lymphocytes # 0.6 L (1.0-4.8) k/uL ABG pCO2 (35-45) mmHg ABG pO2 (83-108) mmHg ABG HCO3 (21-25) mmol/L ABG Total CO2 (19-24) mmol/L ABG O2 Saturation (94-97) % Sodium 129 L (137-145) mmol/L Chloride 89 L (98-107) mmol/L Carbon Dioxide 34 H (22-30) mmol/L BUN 27 H (9-20) mg/dL Glucose 217 H (74-99) mg/dL POC Glucose (mg/dL) 193 H (75-99) mg/dL 10/23/19 10/23/19 10/23/19 Range/Units 05:12 07:34 12:17 RDW (11.5-15.5) % Lymphocytes # (1.0-4.8) k/uL ABG pCO2 55 H (35-45) mmHg ABG pO2 67 L (83-108) mmHg ABG HCO3 34 H (21-25) mmol/L ABG Total CO2 36 H (19-24) mmol/L ABG O2 Saturation 92.7 L (94-97) % Sodium (137-145) mmol/L Chloride (98-107) mmol/L Carbon Dioxide (22-30) mmol/L BUN (9-20) mg/dL Glucose (74-99) mg/dL POC Glucose (mg/dL) 216 H 198 H (75-99) mg/dL 10/23/19 Range/Units 18:12 RDW (11.5-15.5) % Lymphocytes # (1.0-4.8) k/uL ABG pCO2 (35-45) mmHg ABG pO2 (83-108) mmHg ABG HCO3 (21-25) mmol/L ABG Total CO2 (19-24) mmol/L ABG O2 Saturation (94-97) % Sodium (137-145) mmol/L Chloride (98-107) mmol/L Carbon Dioxide (22-30) mmol/L BUN (9-20) mg/dL Glucose (74-99) mg/dL POC Glucose (mg/dL) 184 H (75-99) mg/dL Microbiology - Last 24 Hours (Table) 10/21/19 15:20 Blood Culture - Preliminary Blood No Growth after 48 hours 10/21/19 12:00 Gram Stain - Final Sputum Sputum Culture - Final
[2019-10-23 23:57] LABS: Glucose,Whole Blood 225 mg/dL (75-99)
[2019-10-24] MEDS: PROPOFOL 1,000 MG in EMPTY BAG 1 BAG IV SCH ×12 (00:02→20:44)
[2019-10-24] MEDS: PIPERACILLIN-TAZOBACTAM 3.375 GM in SODIUM CHLORIDE 0.9% 100 ML IVPB SCH ×3 (00:02→16:01)
[2019-10-24] MEDS: INSULIN ASPART (NovoLOG) 100 UNIT/ML VIAL SQ SCH ×4 (00:02→18:01)
[2019-10-24] MEDS: METOCLOPRAMIDE 5 MG/ML 2 ML VIAL IVP SCH ×4 (00:02→18:01)
[2019-10-24] MEDS: IPRATROPIUM-ALBUTEROL 3 ML NEB INHALATION SCH ×7 (00:31→23:38)
[2019-10-24] MEDS: methylPREDNISolone SOD SUCCI 40 MG/ML 1 ML VIAL IV SCH ×4 (02:48→20:47)
[2019-10-24 04:26] LABS: African American GFR (CKD) >90 (>60 ml/min/1.73 sqM); Anion Gap 6 mmol/L; Blood Urea Nitrogen 27 mg/dL (9-20); Calcium 8.6 mg/dL (8.4-10.2); Carbon Dioxide 32 mmol/L (22-30); Chloride 92 mmol/L (98-107); Glucose 197 mg/dL (74-99); Non-African American GFR(CKD) >90 (>60 ml/min/1.73 sqM); Potassium 4.6 mmol/L (3.5-5.1); Sodium 130 mmol/L (137-145)
[2019-10-24 05:38] LABS: Glucose,Whole Blood 195 mg/dL (75-99)
[2019-10-24 07:26] LABS: ABG Base Excess 7.6 mmol/L; ABG HCO3 32 mmol/L (21-25); ABG Oxygen Saturation 93.9 % (94-97); ABG PCO2 49 mmHg (35-45); ABG PH 7.43 (7.35-7.45); ABG PO2 71 mmHg (83-108); ABG TCO2 34 mmol/L (19-24)
[2019-10-24 07:42] LABS: Anisocytosis Slight; Basophils % (A) 0 %; Eosinophils % (A) 0 %; HCT 44.6 % (39.0-53.0); HGB 14.3 gm/dL (13.0-17.5); Lymphocytes # (A) 0.8 k/uL (1.0-4.8); Lymphocytes % (A) 10 %; MCH 30.5 pg (25.0-35.0); MCHC 32.1 g/dL (31.0-37.0); Mean Platelet Volume 7.5; Monocytes # (A) 0.5 k/uL (0-1.0); Monocytes % (A) 7 %; Neutrophils # (A) 6.2 k/uL (1.3-7.7); Neutrophils % (A) 81 %; Platelet Count 197 k/uL (150-450); RBC 4.69 m/uL (4.30-5.90); RDW 16.9 % (11.5-15.5); WBC 7.6 k/uL (3.8-10.6)
--- NOTE | 2019-10-24 08:41 | XR ---
EXAMINATION TYPE: XR chest 1V portable DATE OF EXAM: 10/24/2019 COMPARISON: 10/23/2019 HISTORY: Tube placement. TECHNIQUE: Single frontal view of the chest is obtained. FINDINGS: Endotracheal tube positioning is similar to the prior. Enteric tube is suboptimally visual ized in its entirety given exam underpenetration. Bibasilar opacities have slightly worsened in the i nterim. Lung apices are well aerated. Cardiomediastinal silhouette is stable. IMPRESSION: Stable endotracheal tube. Poor definition of the entirety of the enteric tube. Increasin g bibasilar opacities.
[2019-10-24] MEDS: CHOLECALCIFEROL 1,000 UNIT TAB PO SCH (09:36)
[2019-10-24] MEDS: ISOSORBIDE MONONITRATE ER 60 MG TAB.ER.24H PO SCH ×2 (09:36→21:31)
[2019-10-24] MEDS: CHLORHEXIDINE GLUCONATE 15 ML CUP MUCOUS MEM SCH ×2 (09:36→20:47)
[2019-10-24] MEDS: LISINOPRIL 2.5 MG TAB PO SCH (09:36)
[2019-10-24] MEDS: INSULIN DETEMIR (LEVEMIR) 100 UNIT/ML SYR SQ SCH ×2 (09:36→20:59)
[2019-10-24] MEDS: CYANOCOBALAMIN 500 MCG TAB PO SCH (09:36)
[2019-10-24] MEDS: ASPIRIN 81 MG PO SCH (09:37)
[2019-10-24] MEDS: METOPROLOL TARTRATE 50 MG TAB PO SCH ×2 (09:37→20:47)
[2019-10-24] MEDS: LORATADINE 10 MG TAB PO SCH (09:37)
[2019-10-24] MEDS: PANTOPRAZOLE 40 MG/10 ML VIAL IVP SCH ×2 (09:37→20:47)
[2019-10-24] MEDS: CLOPIDOGREL 75 MG TAB PO SCH (09:37)
[2019-10-24] MEDS: NICOTINE 21MG/24HR PATCH TRANSDERM SCH (09:40)
[2019-10-24] MEDS: DOCUSATE ORAL SOLN 100 MG/10 ML CUP PO SCH ×2 (09:45→20:48)
[2019-10-24] MEDS: CLOTRIMAZOLE 1% CREAM 15 GM TUBE TOPICAL SCH ×2 (09:45→20:48)
[2019-10-24 12:28] LABS: Glucose,Whole Blood 197 mg/dL (75-99)
--- NOTE | 2019-10-24 12:41 | P.PN ---
Subjective Progress Note Date: 10/24/19 Principal diagnosis: Acute hypoxic and hypercapnic respiratory failure, multifactorial. This is a 58-year-old white male, familiar to my service, known history of severe COPD, saw the patient for the first time on 07/03/2017, and I saw him back then mostly for an acute exacerbation of COPD. Patient was treated mostly with bronchodilators, antibiotics, steroids, and he was discharged home. Since then I have seen the patient on outpatient basis, and the last evaluation was via phone visit/telemedicine about 2 weeks ago. Patient had mostly symptoms of COPD exacerbation, treated with prednisone and doxycycline and advised to continue his bronchodilators. He was also advised to stop smoking. At any rate on 10/16/19, patient presented to the emergency room with chest pain consistent with acute coronary syndrome. He was seen by cardiology on consultation, and the patient had a previous stenting of the left circumflex coronary artery. Patient was treated with aspirin, heparin, nitroglycerin, and he underwent cardiac catheterization by Dr. Camilo. This was done on 10/18, and the patient underwent stenting of the first obtuse marginal branch of the left circumflex. This was successful, patient was placed on dual antiplatelet therapy, and advised to have aggressive cholesterol control. Last night, the patient developed worsening pulmonary status, he was noted to have profound shortness of breath, and he became obtunded with significant hypercapnia and hypoxia. Tried on BiPAP, and apparently his ABG was getting worse. Hence I was notified about this patient, and I recommended immediate transfer to the intensive care unit and intubation. Patient was intubated, and I was asked to see him on consultation. ABG before intubation showed a pO2 of 84, pCO2 of 120 and pH of 7.16. This morning ABG showed a pO2 of 53 pCO2 of 63 and pH of 7.40. Hence his FiO2 was increased from 60% to 70%, and his PEEP was increased to 8. Patient is now on mechanical venti lation, and his assist-control rate is 28, tidal volume is 500, FiO2 is 70%, and PEEP is 8. Chest x-ray showed evidence of interstitial edema, hence I recommended Lasix 40 mg IV push 1. And I cut down his IV fluid to KVO. Patient is on propofol at 60 mcg/kg/m, he was on norepinephrine which has been discontinued after the patient responded to fluid boluses last night. Patient was reevaluated today on 10/21/19, patient remains in the intensive care unit, intubated, mechanically ventilated. He is on assist control rate of 28 tidal volume is 500 FiO2 is 60% and PEEP was 8 however I increased the PEEP up to 10. Patient remains on propofol at 45 mcg/kg/m, not requiring norepinephrine today, his IV fluid is 0.9 at 20 mL per hour. Patient's ABG showed a pO2 of 65 pCO2 of 55 pH of 7.43. Patient had low-grade fever overnight, he is in sinus rhythm rate of 98. Sputum Cultures are nondiagnostic so far. Basic metabolic profile showed a low sodium of 126, could very well be related to diuresis yesterday, hence we'll restart the patient on 0.9 normal saline at 75 mL per hour today. Patient is in definite negative fluid balance. Echocardiogram was ordered today to assess his LV function. Chest x-ray showed mostly subsegmental basilar atelectasis, improved compared to the chest x-ray done yesterday Patient was reevaluated today on 10/22/19, patient remains in the ICU, intubated, mechanically ventilated, and his ABG remains marginal with a pO2 of 64 pCO2 of 55 and pH of 7.43. Patient is on assist control mode of mechanical ventilation rate of 28 tidal volume is 500 FiO2 is 60% and I cut it down to 55% and PEEP is at 10. Patient remains on propofol at 25 mcg/kg/m, he is off norepinephrine, IV fluid at 75 mL per hour. His urine output is over 100 mL per hour. Patient is in slightly positive fluid balance. He is on enteral feeding, and it is at goal. Chest x-ray showed minimal atelectasis and interstitial edema at the bases. Hence cut down his IV fluid to KVO, did not recommend any diuretics at this point yet. Patient had a low-grade fever last night and this morning with a temp of 99.9. WBC count is improving. Sodium is a bit low at 126. Sputum cultures are pending. In the meantime the patient remains on Zosyn. Reevaluated today on 10/23/19, patient remains intubated and mechanically ventilated. His ventilator settings are assist control rate of 28 tidal volume is 500 FiO2 is 55% and PEEP is at 10. ABG remains marginal with a pO2 of 67 pCO2 of 55 pH of 7.40. Patient is on propofol at 60 mcg/kg/m. He is on enteral feeding but presently on hold because of intermittent nausea hence I recommended Reglan and recommended a flat plate of the abdomen. Patient is arousable with lower dose of propofol, and he follows simple instructions. Chest x-ray showed increased infiltrate or atelectasis in the right lower lobe, otherwise no major change on the chest x-ray. His labs were reviewed, sodium is a bit better with sodium of 129 today. Patient remains with good urine output over 100 mL per hour. Overall not much of a change except for maybe a slight improvement in his ABG, but based on the ABG is not ready for weaning.. Patient remains on relatively high FiO2 and high PEEP. Reevaluated today on 10/24/19, patient remains in the ICU, intubated and mechanically ventilated. His ventilator settings are assist control rate of 28 tidal volume is 500 FiO2 is 55% PEEP is 10. Today I cut down his FiO2 to 50%. His ABG showed a pO2 of 71 pCO2 of 49 pH of 7.43. Patient remains on propofol at 65 mcg/kg/m, he is hemodynamically stable, not requiring any pressors, remains on Zosyn for presumptive right lower lobe pneumonia/infiltrate. Patient is having some purulent secretions from the endotracheal tube, and they seem to be ferguson and yellow. Labs showed low sodium of 130 otherwise the labs are unremarkable bicarb is 32. WBC count is 7.6 hemoglobin is 14.3. Patient remains on GI and DVT prophylaxis, antibiotics, and on enteral feeding. Based on his ABG, the patient is not ready for any form of weaning. Objective - Vital Signs Vital signs: Vital Signs Temp 98.5 F 10/24/19 04:00 Pulse 86 10/24/19 11:17 Resp 36 H 10/24/19 07:00 BP 125/73 10/23/19 16:00 Pulse Ox 91 L 10/24/19 07:00 Intake & Output 10/23/19 10/24/19 10/24/19 18:59 06:59 18:59 Intake Total 7355.429 6101.735 152.664 Output Total 1255 2440 125 Balance -246.429 -1042.265 27.664 Weight 128 kg Intake: IV 411 401 23 A Line 36 36 3 Piperacillin-Tazobactam 3 125 125 .375 gm In Sodium Chloride 0.9% 100 ml @ 25 mls/hr IVPB Q8HR [facility] Rx# :[id number] Sodium Chloride 0.9% 1, 250 240 20 000 ml @ 20 mls/hr IV . Q24H [facility] Rx#:[id number] Intake, IV Titration 399.571 570.735 101.664 Amount Propofol 1,000 mg In 399.571 570.735 101.664 Empty Bag 1 bag @ Titrate IV .Q0M [facility] Rx#: [id number] Tube Feeding 168 336 28 Other 30 90 Output: Urine 1255 2440 125 Other: Voiding Method Indwelling Catheter Indwelling Catheter Indwelling Catheter # Bowel Movements 1 ABP, PAP, CO, CI - Last Documented Arterial Blood Pressure 143/67 - Exam GENERAL EXAM: Revealed a 58-year-old white male intubated and mechanically vent ilated. HEAD: Normocephalic/atraumatic. Endotracheal tube and orogastric tube are intact. EYES: Normal reaction of pupils, equal size. Conjunctiva pink, sclera white.. THROAT: No erythema or exudates. NECK: No masses, no JVD, no thyroid enlargement, no adenopathy. CHEST: Symmetrical chest expansion. LUNGS: Fine crackles at the right base, no rhonchi and no wheezes CVS: Regular rate and rhythm, normal S1 and S2, no gallops, no murmurs, no rubs ABDOMEN: Obese, Soft, nontender. No hepatosplenomegaly, normal bowel sounds, no guarding or rigidity. EXTREMITIES: No clubbing, 1+ edema in bilateral lower extremities, no cyanosis, 2+ pulses and upper and lower extremities. MUSCULOSKELETAL: No deformities. SKIN: No rashes CENTRAL NERVOUS SYSTEM: Could not be assessed, remains sedated on propofol per PSYCHIATRIC: Could not be assessed. - Labs CBC & Chem 7: 10/24/19 04:00 10/24/19 04:00 Labs: Abnormal Lab Results - Last 24 Hours (Table) 10/23/19 10/23/19 10/24/19 Range/Units 18:12 23:55 04:00 RDW (11.5-15.5) % Lymphocytes # (1.0-4.8) k/uL ABG pCO2 (35-45) mmHg ABG pO2 (83-108) mmHg ABG HCO3 (21-25) mmol/L ABG Total CO2 (19-24) mmol/L ABG O2 Saturation (94-97) % Sodium 130 L (137-145) mmol/L Chloride 92 L (98-107) mmol/L Carbon Dioxide 32 H (22-30) mmol/L BUN 27 H (9-20) mg/dL Glucose 197 H (74-99) mg/dL POC Glucose (mg/dL) 184 H 225 H (75-99) mg/dL 10/24/19 10/24/19 10/24/19 Range/Units 04:00 05:36 07:21 RDW 16.9 H (11.5-15.5) % Lymphocytes # 0.8 L (1.0-4.8) k/uL ABG pCO2 49 H (35-45) mmHg ABG pO2 71 L (83-108) mmHg ABG HCO3 32 H (21-25) mmol/L ABG Total CO2 34 H (19-24) mmol/L ABG O2 Saturation 93.9 L (94-97) % Sodium (137-145) mmol/L Chloride (98-107) mmol/L Carbon Dioxide (22-30) mmol/L BUN (9-20) mg/dL Glucose (74-99) mg/dL POC Glucose (mg/dL) 195 H (75-99) mg/dL 10/24/19 Range/Units 12:26 RDW (11.5-15.5) % Lymphocytes # (1.0-4.8) k/uL ABG pCO2 (35-45) mmHg ABG pO2 (83-108) mmHg ABG HCO3 (21-25) mmol/L ABG Total CO2 (19-24) mmol/L ABG O2 Saturation (94-97) % Sodium (137-145) mmol/L Chloride (98-107) mmol/L Carbon Dioxide (22-30) mmol/L BUN (9-20) mg/dL Glucose (74-99) mg/dL POC Glucose (mg/dL) 197 H (75-99) mg/dL Microbiology - Last 24 Hours (Table) 10/21/19 15:20 Blood Culture - Preliminary Blood No Growth after 48 hours Assessment and Plan Assessment: Impression: Acute hypoxic and hypercapnic respiratory failure secondary to severe COPD exacerbation and suspect acute on chronic diastolic congestive heart failure. Acute non-ST elevation myocardial infarction, status post stenting of first obtuse marginal branch of left circumflex. History of severe peripheral neuropathy History of previous myocardial infarction and underlying coronary artery disease Nicotine dependence syndrome. History of prostate cancer, radical prostatectomy in 2001 History of dyslipidemia History of pulmonary embolism History of obstructive sleep apnea syndrome noncompliant with CPAP. History of type 2 diabetes with peripheral neuropathy History of GERD and esophagitis History of benign essential hypertension Hyponatremia, most likely secondary to diuretics. Improving.. Recommendation: Continue ventilatory support, assess mental status on a daily basis of propofol, but not quite ready for extubation. Or weaning Decrease FiO2 to 50% however continued PEEP at 10. Continue cardiac meds, continue anticoagulation therapy with his history of pulmonary embolism. Continue bronchodilators and steroids, for his underlying severe COPD. Continue GI and DVT prophylaxis Continue enteral feeding Continue to hold diuretics. Continue dual antiplatelet therapy Continue insulin for glucose control. Critical care time is 32 minutes, Time with Patient: Greater than 30
[2019-10-24] MEDS: SODIUM CHLORIDE 0.9% 1,000 ML IV SCH (12:49)
[2019-10-24] MEDS: NOREPINEPHRINE 4 MG in SODIUM CHLORIDE 0.9% 250 ML IV SCH ×2 (15:25→18:22)
[2019-10-24 17:33] LABS: Glucose,Whole Blood 179 mg/dL (75-99)
[2019-10-24] MEDS: RIVAROXABAN 15 MG TAB PO SCH (18:01)
--- NOTE | 2019-10-24 18:05 | PN ---
PROGRESS NOTE DATE OF SERVICE: 10/24/2019 This 58-year-old gentleman admitted with acute vxo-OH-aqupcvo-elevation myocardial infarction also had bilateral pneumonia, possibly hospital acquired, possibly aspiration pneumonia with acute hypoxic hypercarbic respiratory failure. Patient on mechanical ventilation. The patient is currently on PEEP of 10 and FiO2 55 and tidal volume 500. The patient being closely monitored at this time. Weaning attempts are not being done by Dr. Sidhu. The patient remains off pressor support. The cultures are negative so far. Patient being closely monitored. Hemoglobin is 14.3 at this time. PAST MEDICAL HISTORY: Reviewed. REVIEW OF SYSTEMS: Could not be taken, the patient mechanically ventilated and sedated. MEDICATIONS: 1. Maalox 30 mL q.4 p.r.n. 2. DuoNeb q.i.d. and p.r.n. 3. Aspirin 81 mg daily. 4. Atropine. 5. Peridex 15 mL b.i.d. 6. Vitamin D3. 7. Plavix 75 mg p.o. daily. 8. Lotrimin. 9. Vitamin B12 1000 mcg p.o. 10.Colace 100 mg p.o. b.i.d. 11.NovoLog scale. 12.Insulin Levemir 10 units subcu b.i.d. 13.Imdur 60 mg p.o. b.i.d. 14.Cephulac 20 mg p.o. daily. 15.Zestril 2.5 mg daily. 16.Claritin 10 mg p.o. daily. 17.Solu-Medrol 40 IV q.6. 18.Reglan 5 mg q.6h. 19.Lopressor 50 mg p.o. b.i.d. 20.Narcan 0.2 q.2 p.r.n. 21.Habitrol 21. 22.Nitrostat. 23.Norepinephrine drip. 24.Protonix. 25.Zosyn 3.375 IV q.8. 26.Propofol. 27.Xarelto 15 mg with supper. PHYSICAL EXAM: Patient is mechanically sedated. Pulse is 82. The blood pressure is 143/60, respiration 36, temperature is normal. Pulse ox 91 percent on 50% percent on mechanical ventilation. HEENT: Conjunctivae normal. Oral mucosa moist. NECK is no jugular venous distention. No carotid bruit. No lymph node enlargement. CARDIOVASCULAR systems: S1, S2 muffled. RESPIRATION: Breath sounds diminished in the bases. Bilateral scattered rhonchi and crackles. ABDOMEN: Soft, obese, nontender. LEGS: No edema. No swelling. CENTRAL NERVOUS SYSTEM: Diffusely weak. LAB: ABGs noted. Sodium 130, potassium 4.6, CO2 is 32. Accu-Cheks noted. ASSESSMENT: 1. Acute vve-UW-vuuitph-elevation myocardial infarction status post PTCA stenting of the mid RCA and 2nd angiogram with stenting of the 1st obtuse marginal of the circumflex artery. 2. Bilateral pneumonia possibly hospital acquired, possibly aspiration pneumonia with acute hypoxic hypercapnic respiratory failure on mechanical ventilation. 3. Change in mental status, acute metabolic encephalopathy multifactorial. 4. Chronic obstructive pulmonary disease, acute exacerbation. 5. Obesity hypoventilation syndrome. 6. Hyponatremia. 7. History of nicotine dependence. 8. History of substance abuse with THC. 9. History of obesity with body mass index of 37. 10.Diabetes mellitus type 2 with diabetic neuropathy. 11.Hypertension. 12.Hyperlipidemia. 13.Congestive heart failure, chronic. 14.Chronic hypoxic respiratory failure 2 to 2.5 nasal cannula at home. 15.Gastroesophageal reflux disease. 16.History of pulmonary embolism on Xarelto 15 mg. 17.History of prostate cancer. 18.Hyponatremia. 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 20.History of asthma, chronic obstructive pulmonary disease. 21.History of anxiety, depression. 22.FULL CODE. RECOMMENDATIONS AND DISCUSSION: This 58-year-old gentleman who presented with multiple complex medical issues, at this time, we will continue current medication. Continue with mechanical ventilations. Closely follow with Dr. Sidhu. As mentioned cultures are negative so far. The patient remains on empiric antibiotics. The patient is on a reduced dose of IV steroids at this time. Patient is on IV Zosyn. A chest x-ray which was done today which was reviewed personally by me showed bilateral lesions, right more than the left and Cardiology following the patient also. Once again the prognosis may be guarded extremely guarded. Further recommendations to follow. MMODL / IJN: [id number] /
[2019-10-24 21:10] LABS: Glucose,Whole Blood 192 mg/dL (75-99)
[2019-10-24] MEDS: HYDROmorphone 0.5 MG/0.5 ML SYRINGE IVP PRN (21:32)
[2019-10-25] MEDS: PIPERACILLIN-TAZOBACTAM 3.375 GM in SODIUM CHLORIDE 0.9% 100 ML IVPB SCH ×3 (00:01→16:11)
[2019-10-25] MEDS: METOCLOPRAMIDE 5 MG/ML 2 ML VIAL IVP SCH ×4 (00:01→18:09)
[2019-10-25] MEDS: INSULIN ASPART (NovoLOG) 100 UNIT/ML VIAL SQ SCH ×5 (00:03→23:50)
[2019-10-25 00:04] LABS: Glucose,Whole Blood 205 mg/dL (75-99)
[2019-10-25] MEDS: HYDROmorphone 0.5 MG/0.5 ML SYRINGE IVP PRN ×4 (01:32→17:59)
[2019-10-25] MEDS: PROPOFOL 1,000 MG in EMPTY BAG 1 BAG IV SCH ×5 (03:07→12:00)
[2019-10-25] MEDS: methylPREDNISolone SOD SUCCI 40 MG/ML 1 ML VIAL IV SCH ×4 (03:23→20:35)
[2019-10-25] MEDS: IPRATROPIUM-ALBUTEROL 3 ML NEB INHALATION SCH ×6 (03:36→23:04)
[2019-10-25 05:02] LABS: African American GFR (CKD) >90 (>60 ml/min/1.73 sqM); Anion Gap 6 mmol/L; Blood Urea Nitrogen 32 mg/dL (9-20); Calcium 8.5 mg/dL (8.4-10.2); Carbon Dioxide 28 mmol/L (22-30); Chloride 95 mmol/L (98-107); Glucose 190 mg/dL (74-99); Non-African American GFR(CKD) >90 (>60 ml/min/1.73 sqM); Sodium 129 mmol/L (137-145)
[2019-10-25] MEDS: NOREPINEPHRINE 4 MG in SODIUM CHLORIDE 0.9% 250 ML IV SCH ×2 (05:10→17:33)
[2019-10-25 05:11] LABS: Triglycerides 771 mg/dL (<150)
[2019-10-25 06:14] LABS: Anisocytosis Slight; Basophils % (A) 0 %; Eosinophils % (A) 0 %; HCT 45.5 % (39.0-53.0); Lymphocytes # (A) 0.8 k/uL (1.0-4.8); Lymphocytes % (A) 10 %; MCH 31.2 pg (25.0-35.0); MCV 94.5 fL (80.0-100.0); Monocytes # (A) 0.4 k/uL (0-1.0); Monocytes % (A) 5 %; Neutrophils # (A) 6.6 k/uL (1.3-7.7); Neutrophils % (A) 84 %; Platelet Count 187 k/uL (150-450); RBC 4.82 m/uL (4.30-5.90); RDW 16.9 % (11.5-15.5); WBC 7.9 k/uL (3.8-10.6)
[2019-10-25 06:20] LABS: Glucose,Whole Blood 221 mg/dL (75-99)
[2019-10-25 07:02] LABS: ABG Base Excess 4.7 mmol/L; ABG HCO3 29 mmol/L (21-25); ABG Oxygen Saturation 92.9 % (94-97); ABG PCO2 47 mmHg (35-45); ABG PH 7.41 (7.35-7.45); ABG PO2 68 mmHg (83-108); ABG TCO2 31 mmol/L (19-24)
[2019-10-25 07:03] LABS: Allen Test Performed? no
--- NOTE | 2019-10-25 07:23 | XR ---
EXAMINATION TYPE: XR chest 1V portable DATE OF EXAM: 10/25/2019 COMPARISON: Prior chest x-ray 10/24/2019 HISTORY: Intubated TECHNIQUE: Single frontal view of the chest is obtained. FINDINGS: Endotracheal tube is superimposed over the tracheal air column, there is an NG tube in popeye ce coursing towards the left upper quadrant, distal tip is not seen. There are overlying cardiac lead s. No evident pneumothorax. 5 basilar increased density persists, heart is stable. IMPRESSION: Probable basilar atelectatic changes, correlate to exclude pneumonia.
[2019-10-25] MEDS: CLOPIDOGREL 75 MG TAB PO SCH (10:24)
[2019-10-25] MEDS: ASPIRIN 81 MG PO SCH (10:24)
[2019-10-25] MEDS: CYANOCOBALAMIN 500 MCG TAB PO SCH (10:24)
[2019-10-25] MEDS: LORATADINE 10 MG TAB PO SCH (10:24)
[2019-10-25] MEDS: CHLORHEXIDINE GLUCONATE 15 ML CUP MUCOUS MEM SCH ×2 (10:24→20:35)
[2019-10-25] MEDS: CHOLECALCIFEROL 1,000 UNIT TAB PO SCH (10:25)
[2019-10-25] MEDS: INSULIN DETEMIR (LEVEMIR) 100 UNIT/ML SYR SQ SCH ×2 (10:25→20:44)
[2019-10-25] MEDS: LISINOPRIL 2.5 MG TAB PO SCH (10:25)
[2019-10-25] MEDS: DOCUSATE ORAL SOLN 100 MG/10 ML CUP PO SCH ×2 (10:25→20:36)
[2019-10-25] MEDS: ISOSORBIDE MONONITRATE ER 60 MG TAB.ER.24H PO SCH ×2 (10:26→20:33)
[2019-10-25] MEDS: CLOTRIMAZOLE 1% CREAM 15 GM TUBE TOPICAL SCH ×2 (10:26→20:36)
[2019-10-25] MEDS: PANTOPRAZOLE 40 MG/10 ML VIAL IVP SCH ×2 (10:31→20:35)
[2019-10-25] MEDS: METOPROLOL TARTRATE 50 MG TAB PO SCH ×2 (10:31→20:35)
[2019-10-25] MEDS: NICOTINE 21MG/24HR PATCH TRANSDERM SCH (10:31)
[2019-10-25 12:14] LABS: Glucose,Whole Blood 207 mg/dL (75-99)
[2019-10-25] MEDS: SODIUM CHLORIDE 0.9% 1,000 ML IV SCH (12:38)
[2019-10-25] MEDS ORDERED: BISACODYL 10 MG SUPP RECTAL STA (12:39)
--- NOTE | 2019-10-25 14:05 | P.PN ---
Subjective Progress Note Date: 10/25/19 Principal diagnosis: Acute hypoxic and hypercapnic respiratory failure, multifactorial. This is a 58-year-old white male, familiar to my service, known history of severe COPD, saw the patient for the first time on 07/03/2017, and I saw him back then mostly for an acute exacerbation of COPD. Patient was treated mostly with bronchodilators, antibiotics, steroids, and he was discharged home. Since then I have seen the patient on outpatient basis, and the last evaluation was via phone visit/telemedicine about 2 weeks ago. Patient had mostly symptoms of COPD exacerbation, treated with prednisone and doxycycline and advised to continue his bronchodilators. He was also advised to stop smoking. At any rate on 10/16/19, patient presented to the emergency room with chest pain consistent with acute coronary syndrome. He was seen by cardiology on consultation, and the patient had a previous stenting of the left circumflex coronary artery. Patient was treated with aspirin, heparin, nitroglycerin, and he underwent cardiac catheterization by Dr. Camilo. This was done on 10/18, and the patient underwent stenting of the first obtuse marginal branch of the left circumflex. This was successful, patient was placed on dual antiplatelet therapy, and advised to have aggressive cholesterol control. Last night, the patient developed worsening pulmonary status, he was noted to have profound shortness of breath, and he became obtunded with significant hypercapnia and hypoxia. Tried on BiPAP, and apparently his ABG was getting worse. Hence I was notified about this patient, and I recommended immediate transfer to the intensive care unit and intubation. Patient was intubated, and I was asked to see him on consultation. ABG before intubation showed a pO2 of 84, pCO2 of 120 and pH of 7.16. This morning ABG showed a pO2 of 53 pCO2 of 63 and pH of 7.40. Hence his FiO2 was increased from 60% to 70%, and his PEEP was increased to 8. Patient is now on mechanical venti lation, and his assist-control rate is 28, tidal volume is 500, FiO2 is 70%, and PEEP is 8. Chest x-ray showed evidence of interstitial edema, hence I recommended Lasix 40 mg IV push 1. And I cut down his IV fluid to KVO. Patient is on propofol at 60 mcg/kg/m, he was on norepinephrine which has been discontinued after the patient responded to fluid boluses last night. Patient was reevaluated today on 10/21/19, patient remains in the intensive care unit, intubated, mechanically ventilated. He is on assist control rate of 28 tidal volume is 500 FiO2 is 60% and PEEP was 8 however I increased the PEEP up to 10. Patient remains on propofol at 45 mcg/kg/m, not requiring norepinephrine today, his IV fluid is 0.9 at 20 mL per hour. Patient's ABG showed a pO2 of 65 pCO2 of 55 pH of 7.43. Patient had low-grade fever overnight, he is in sinus rhythm rate of 98. Sputum Cultures are nondiagnostic so far. Basic metabolic profile showed a low sodium of 126, could very well be related to diuresis yesterday, hence we'll restart the patient on 0.9 normal saline at 75 mL per hour today. Patient is in definite negative fluid balance. Echocardiogram was ordered today to assess his LV function. Chest x-ray showed mostly subsegmental basilar atelectasis, improved compared to the chest x-ray done yesterday Patient was reevaluated today on 10/22/19, patient remains in the ICU, intubated, mechanically ventilated, and his ABG remains marginal with a pO2 of 64 pCO2 of 55 and pH of 7.43. Patient is on assist control mode of mechanical ventilation rate of 28 tidal volume is 500 FiO2 is 60% and I cut it down to 55% and PEEP is at 10. Patient remains on propofol at 25 mcg/kg/m, he is off norepinephrine, IV fluid at 75 mL per hour. His urine output is over 100 mL per hour. Patient is in slightly positive fluid balance. He is on enteral feeding, and it is at goal. Chest x-ray showed minimal atelectasis and interstitial edema at the bases. Hence cut down his IV fluid to KVO, did not recommend any diuretics at this point yet. Patient had a low-grade fever last night and this morning with a temp of 99.9. WBC count is improving. Sodium is a bit low at 126. Sputum cultures are pending. In the meantime the patient remains on Zosyn. Reevaluated today on 10/23/19, patient remains intubated and mechanically ventilated. His ventilator settings are assist control rate of 28 tidal volume is 500 FiO2 is 55% and PEEP is at 10. ABG remains marginal with a pO2 of 67 pCO2 of 55 pH of 7.40. Patient is on propofol at 60 mcg/kg/m. He is on enteral feeding but presently on hold because of intermittent nausea hence I recommended Reglan and recommended a flat plate of the abdomen. Patient is arousable with lower dose of propofol, and he follows simple instructions. Chest x-ray showed increased infiltrate or atelectasis in the right lower lobe, otherwise no major change on the chest x-ray. His labs were reviewed, sodium is a bit better with sodium of 129 today. Patient remains with good urine output over 100 mL per hour. Overall not much of a change except for maybe a slight improvement in his ABG, but based on the ABG is not ready for weaning.. Patient remains on relatively high FiO2 and high PEEP. Reevaluated today on 10/24/19, patient remains in the ICU, intubated and mechanically ventilated. His ventilator settings are assist control rate of 28 tidal volume is 500 FiO2 is 55% PEEP is 10. Today I cut down his FiO2 to 50%. His ABG showed a pO2 of 71 pCO2 of 49 pH of 7.43. Patient remains on propofol at 65 mcg/kg/m, he is hemodynamically stable, not requiring any pressors, remains on Zosyn for presumptive right lower lobe pneumonia/infiltrate. Patient is having some purulent secretions from the endotracheal tube, and they seem to be ferguson and yellow. Labs showed low sodium of 130 otherwise the labs are unremarkable bicarb is 32. WBC count is 7.6 hemoglobin is 14.3. Patient remains on GI and DVT prophylaxis, antibiotics, and on enteral feeding. Based on his ABG, the patient is not ready for any form of weaning. Reevaluated today on 10/25/19, remains in the ICU, intubated and mechanically ventilated. Patient is on assist control rate of 28 tidal volume is 500 FiO2 is 50% PEEP is 10. His pO2 was noted to be 68, pCO2 of 47 pH of 7.41. I did cut down the PEEP to 8. He remains on propofol at 75 mcg/kg/m, and his IV fluid is at KVO however I increased the fluids to 50 mL per hour. Patient is not requiring any pressors. Chest x-ray is showing improvement in his right lower lobe atelectasis/infiltrates. No evidence of congestive heart failure. Patient remains on enteral feeding. He is arousable in spite of being on high dose of propofol, and he follows simple instructions. Sodium is a bit low at 129 renal functioning is normal. CBC is normal. Objective - Vital Signs Vital signs: Vital Signs Temp 98.7 F 10/25/19 12:00 Pulse 68 10/25/19 13:00 Resp 30 H 10/25/19 13:00 BP 122/74 10/25/19 13:00 Pulse Ox 92 L 10/25/19 13:00 Intake & Output 10/24/19 10/25/19 10/25/19 18:59 06:59 18:59 Intake Total 4096.348 3323.000 777 Output Total 1725 2290 1155 Balance -514.544 -1133.000 -378 Weight 122 kg 122 kg Intake: IV 381 431 321 Normal Saline Pressure 36 36 21 Bag Piperacillin-Tazobactam 3 175 225 100 .375 gm In Sodium Chloride 0.9% 100 ml @ 25 mls/hr IVPB Q8HR [facility] Rx# :[id number] Sodium Chloride 0.9% 1, 170 170 200 000 ml @ 50 mls/hr IV . Q20H [facility] Rx#:[id number] Intake, IV Titration 403.456 300.000 200 Amount Propofol 1,000 mg In 403.456 300.000 200 Empty Bag 1 bag @ Titrate IV .Q0M [facility] Rx#: [id number] Tube Feeding 336 336 196 Other 90 90 60 Output: Urine 1725 2290 1155 Other: Voiding Method Indwelling Catheter Indwelling Catheter ABP, PAP, CO, CI - Last Documented Arterial Blood Pressure 114/107 - Exam GENERAL EXAM: Revealed a 58-year-old white male intubated and mechanically ventilated. HEAD: Normocephalic/atraumatic. Endotracheal tube and orogastric tube are intact. EYES: Normal reaction of pupils, equal size. Conjunctiva pink, sclera white.. THROAT: No erythema or exudates. NECK: No masses, no JVD, no thyroid enlargement, no adenopathy. CHEST: Symmetrical chest expansion. LUNGS: Fine crackles at the right base, no rhonchi and no wheezes CVS: Regular rate and rhythm, normal S1 and S2, no gallops, no murmurs, no rubs ABDOMEN: Obese, Soft, nontender. No hepatosplenomegaly, normal bowel sounds, no guarding or rigidity. EXTREMITIES: No clubbing, trace of bipedal edema., no cyanosis, 2+ pulses and upper and lower extremities. MUSCULOSKELETAL: No deformities. SKIN: No rashes CENTRAL NERVOUS SYSTEM: Arousable and being on propofol, follows very simple instructions. PSYCHIATRIC: Could not be assessed. - Labs CBC & Chem 7: 10/25/19 04:36 10/25/19 04:36 Labs: Abnormal Lab Results - Last 24 Hours (Table) 10/24/19 10/24/19 10/24/19 Range/Units 17:32 20:58 23:53 RDW (11.5-15.5) % Lymphocytes # (1.0-4.8) k/uL ABG pCO2 (35-45) mmHg ABG pO2 (83-108) mmHg ABG HCO3 (21-25) mmol/L ABG Total CO2 (19-24) mmol/L ABG O2 Saturation (94-97) % Sodium (137-145) mmol/L Chloride (98-107) mmol/L BUN (9-20) mg/dL Glucose (74-99) mg/dL POC Glucose (mg/dL) 179 H 192 H 205 H (75-99) mg/dL Triglycerides (<150) mg/dL 10/25/19 10/25/19 10/25/19 Range/Units 04:36 04:36 06:08 RDW 16.9 H (11.5-15.5) % Lymphocytes # 0.8 L (1.0-4.8) k/uL ABG pCO2 (35-45) mmHg ABG pO2 (83-108) mmHg ABG HCO3 (21-25) mmol/L ABG Total CO2 (19-24) mmol/L ABG O2 Saturation (94-97) % Sodium 129 L (137-145) mmol/L Chloride 95 L (98-107) mmol/L BUN 32 H (9-20) mg/dL Glucose 190 H (74-99) mg/dL POC Glucose (mg/dL) 221 H (75-99) mg/dL Triglycerides 771 H (<150) mg/dL 10/25/19 10/25/19 Range/Units 06:57 12:12 RDW (11.5-15.5) % Lymphocytes # (1.0-4.8) k/uL ABG pCO2 47 H (35-45) mmHg ABG pO2 68 L (83-108) mmHg ABG HCO3 29 H (21-25) mmol/L ABG Total CO2 31 H (19-24) mmol/L ABG O2 Saturation 92.9 L (94-97) % Sodium (137-145) mmol/L Chloride (98-107) mmol/L BUN (9-20) mg/dL Glucose (74-99) mg/dL POC Glucose (mg/dL) 207 H (75-99) mg/dL Triglycerides (<150) mg/dL Microbiology - Last 24 Hours (Table) 10/21/19 15:20 Blood Culture - Preliminary Blood No Growth after 72 hours Assessment and Plan Assessment: Impression: Acute hypoxic and hypercapnic respiratory failure secondary to severe COPD exacerbation and suspect acute on chronic diastolic congestive heart failure. Acute non-ST elevation myocardial infarction, status post stenting of first obtuse marginal branch of left circumflex. History of severe peripheral neuropathy History of previous myocardial infarction and underlying coronary artery disease Nicotine dependence syndrome. History of prostate cancer, radical prostatectomy in 2001 History of dyslipidemia History of pulmonary embolism History of obstructive sleep apnea syndrome noncompliant with CPAP. History of type 2 diabetes with peripheral neuropathy History of GERD and esophagitis History of benign essential hypertension Hyponatremia, most likely secondary to diuretics. Improving. But not resolved. Recommendation: Continue ventilatory support, not ready for weaning, I did however cut down the PEEP to 8. His gases are marginal, Continue FiO2 is 50%. And continue assist control mode of mechanical ventilation.. Continue cardiac meds, continue anticoagulation therapy with his history of pulmonary embolism. Continue bronchodilators and steroids, for his underlying severe COPD. Continue GI and DVT prophylaxis Continue enteral feeding Continue to hold diuretics. Hydrate slowly. Continue dual antiplatelet therapy Continue insulin for glucose control. Critical care time is 34 minutes, Time with Patient: Greater than 30
--- NOTE | 2019-10-25 16:00 | PN ---
PROGRESS NOTE DATE OF SERVICE: 10/25/2019 This 58-year-old gentleman admitted with acute rdd-OM-dpoqyve-elevation myocardial infarction, also had bilateral pneumonia, possibly hospital acquired and possibly aspiration pneumonia. Patient also had acute respiratory failure. The patient is on mechanical ventilation at this time. The most recent chest x-ray which was reviewed personally by me showed bilateral lesions especially in the lower lobe indicating pneumonia. The cultures are negative so far. The patient has empiric antibiotics. Dr. Sidhu is following the patient closely. Patient became more responsive. The patient is currently on 50% FiO2 with PEEP of 10. The chest x-ray did show some improvement. Mild hyponatremia also noted. PAST MEDICAL HISTORY: Reviewed. REVIEW OF SYSTEMS: Could not taken, the patient is mechanically intubated and sedated. CURRENT MEDICATIONS: 1. Maalox 30 mL q.4 p.r.n. 2. DuoNeb q.i.d. and p.r.n. 3. Aspirin 81 mg p.o. 4. Troponin 0.5 p.r.n. 5. Peridex 15 mL b.i.d. 6. Vitamin D3. 7. Plavix 75 mg p.o. daily. 8. Lotrimin 1 application b.i.d. 9. Vitamin B12 1000 mcg p.o. daily. 10.Colace 100 mg p.o. b.i.d. 11.Dilaudid 0.5 mg q.4 p.r.n. 12.NovoLog. 13.Levemir 10 units subcu b.i.d. 14.Imdur 60 mg p.o. b.i.d. 15.Cephulac 20 grams p.o. daily. 16.Zestril 2.5 mg daily. 17.Claritin 10 mg daily. 18.Solu-Medrol 40 IV q.6. 19.Reglan 5 mg q.6 hours. 20.Lopressor 50 mg b.i.d. 21.Narcan p.r.n. 22.Habitrol 21 daily. 23.Nitrostat 0.4 mg sublingual p.r.n. 24.Protonix 40 mg IV b.i.d. 25.Zosyn 3.5 IV q.8. 26.Xarelto 15 mg with supper. PHYSICAL EXAMINATION: Patient is alert. The patient is mechanically sedated. Pulse 71, blood pressure 132/75, respiration 39, temperature 98.7, pulse ox 97% on mechanical ventilation with vent settings noted. HEENT: Conjunctivae normal. Oral mucosa moist. NECK: No jugular venous distention. No lymph node enlargement. CARDIOVASCULAR: S1, S2. RESPIRATORY: Diminished breath sounds at the bases. Bilateral scattered rhonchi and crackles. ABDOMEN: Soft. LEGS: No edema, no swelling. NERVOUS SYSTEM: No focal deficits. LABS: CBC within normal limits. The pH of 7.41. Sodium 128, potassium 5 and glucose 221, previous 771. ASSESSMENT: 1. Acute xwd-KA-wczuefe-elevation myocardial infarction status post PTCA and stenting of the mid RCA and second angiogram with stenting of the first obtuse marginal circumflex artery. 2. Bilateral pneumonia, possibly hospital acquired, possible aspiration pneumonia with acute hypoxic hypercapnic respiratory failure on mechanical ventilation. 3. Change in mental status with acute metabolic encephalopathy, multifactorial. 4. Chronic obstructive pulmonary disease acute exacerbation. 5. Obesity hypoventilation syndrome. 6. Hyponatremia. 7. History of nicotine dependence. 8. History of substance abuse with THC. 9. History of obesity with body mass index of 37. 10.Diabetes mellitus type 2 with diabetic peripheral neuropathy. 11.Hypertension. 12.Hyperlipidemia. 13.Congestive heart failure, chronic. 14.History of chronic hypoxic respiratory failure 2-2.5 L nasal cannula at home. 15.Gastroesophageal reflux disease. 16.History of pulmonary embolism, on Xarelto 15 mg. 17.History of prostate cancer. 18.Hyponatremia. 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 20.History of asthma and chronic obstructive pulmonary disease. 21.History of anxiety, depression. 22.FULL CODE. RECOMMENDATIONS AND DISCUSSION: In this 58-year-old gentleman who presented with multiple complex medical issues, we will monitor the patient closely. We will continue the antibiotics, continue the bronchodilators. Further weaning attempts per Dr. Sidhu. Other than that chest x-ray reviewed, the patient is on IV Zosyn currently. Sodium is 129. We will keep monitoring. Triglycerides also high, probably related to propofol. We will continue to monitor. Prognosis guarded because of multiple complex medical issues and further recommendations to follow. MMODL / IJN: [id number] /
[2019-10-25 18:01] LABS: Glucose,Whole Blood 185 mg/dL (75-99)
[2019-10-25] MEDS: RIVAROXABAN 15 MG TAB PO SCH (18:06)
[2019-10-25] MEDS: fentaNYL (PF) 1,000 MCG in SODIUM CHLORIDE 0.9% 80 ML IV SCH (19:05)
[2019-10-25 20:54] LABS: Glucose,Whole Blood 190 mg/dL (75-99)
[2019-10-25 23:30] LABS: Glucose,Whole Blood 371 mg/dL (75-99)
[2019-10-26] MEDS: METOCLOPRAMIDE 5 MG/ML 2 ML VIAL IVP SCH ×4 (00:02→19:48)
[2019-10-26] MEDS: PIPERACILLIN-TAZOBACTAM 3.375 GM in SODIUM CHLORIDE 0.9% 100 ML IVPB SCH ×3 (00:02→16:42)
[2019-10-26] MEDS: NOREPINEPHRINE 4 MG in SODIUM CHLORIDE 0.9% 250 ML IV SCH (01:34)
[2019-10-26] MEDS: PROPOFOL 1,000 MG in EMPTY BAG 1 BAG IV SCH ×4 (03:15→09:21)
[2019-10-26] MEDS: IPRATROPIUM-ALBUTEROL 3 ML NEB INHALATION SCH ×6 (03:16→23:02)
[2019-10-26] MEDS: methylPREDNISolone SOD SUCCI 40 MG/ML 1 ML VIAL IV SCH ×4 (03:16→20:42)
[2019-10-26 05:01] LABS: ABG Base Excess 4.5 mmol/L; ABG HCO3 29 mmol/L (21-25); ABG Oxygen Saturation 94.7 % (94-97); ABG PCO2 48 mmHg (35-45); ABG PH 7.39 (7.35-7.45); ABG PO2 76 mmHg (83-108); ABG TCO2 31 mmol/L (19-24); Allen Test Performed? Yes
[2019-10-26] MEDS: INSULIN ASPART (NovoLOG) 100 UNIT/ML VIAL SQ SCH ×3 (05:28→19:49)
[2019-10-26 05:30] LABS: Glucose,Whole Blood 193 mg/dL (75-99)
[2019-10-26 05:34] LABS: Anisocytosis Slight; Basophils % (A) 0 %; Eosinophils # (A) 0.1 k/uL (0-0.7); Eosinophils % (A) 1 %; HGB 15.3 gm/dL (13.0-17.5); Lymphocytes # (A) 0.6 k/uL (1.0-4.8); Lymphocytes % (A) 6 %; MCH 31.4 pg (25.0-35.0); MCHC 33.4 g/dL (31.0-37.0); Mean Platelet Volume 6.7; Monocytes # (A) 0.5 k/uL (0-1.0); Monocytes % (A) 5 %; Neutrophils # (A) 8.9 k/uL (1.3-7.7); Neutrophils % (A) 88 %; Platelet Count 187 k/uL (150-450); RBC 4.89 m/uL (4.30-5.90); RDW 16.6 % (11.5-15.5); WBC 10.2 k/uL (3.8-10.6)
--- NOTE | 2019-10-26 05:37 | P.PN ---
Subjective Progress Note Date: 10/25/19 Patient evaluated on 24 october Patient remains intubated. He initially came with a non-Q-wave myocardial infarction and underwent stenting of the RCA and the obtuse marginal subsequently had respiratory failure and was found to have aspiration pneumonitis and was intubated He remains intubated Blood pressure 130/70 mmHg pulse rate in the 70s on mechanical ventilator Diminished breath sounds bilaterally with scattered crackles Abdomen is soft nontender Normal heart sounds no murmurs No lower extremity edema Sodium 138 potassium 5.0 elevated glucose Patient remains on dual antiplatelet therapy as well as XARELTO 50 mg by mouth daily He is on Lopressor by mouth Imdur and Zestril Suggest continue cardiac medications and statins Pulmonary management per ICU team Objective - Vital Signs Vital signs: Vital Signs Temp 98 F 10/26/19 04:00 Pulse 76 10/26/19 05:00 Resp 32 H 10/26/19 05:00 BP 104/61 10/26/19 05:00 Pulse Ox 92 L 10/26/19 05:00 Intake & Output 10/25/19 10/25/19 10/26/19 06:59 18:59 06:59 Intake Total 7025.803 7538 1103.583 Output Total 2290 1955 1380 Balance -1133.000 -628 -276.417 Weight 122 kg 122 kg 122.5 kg Intake: IV 431 661 708 Normal Saline Pressure 36 36 33 Bag Piperacillin-Tazobactam 3 225 175 125 .375 gm In Sodium Chloride 0.9% 100 ml @ 25 mls/hr IVPB Q8HR [facility] Rx# :[id number] Sodium Chloride 0.9% 1, 170 450 550 000 ml @ 50 mls/hr IV . Q20H [facility] Rx#:[id number] Intake, IV Titration 300.000 300 105.583 Amount Propofol 1,000 mg In 300.000 300 100 Empty Bag 1 bag @ Titrate IV .Q0M [facility] Rx#: [id number] fentaNYL (PF) 1,000 mcg 5.583 In Sodium Chloride 0.9% 80 ml @ 2.5 mls/hr IV . Q24H [facility] Rx#:[id number] Tube Feeding 336 276 200 Other 90 90 90 Output: Urine 2290 1955 1380 Other: Voiding Method Indwelling Catheter Indwelling Catheter Indwelling Catheter ABP, PAP, CO, CI - Last Documented Arterial Blood Pressure 124/62 - Labs CBC & Chem 7: 10/26/19 05:19 10/25/19 04:36 Labs: Abnormal Lab Results - Last 24 Hours (Table) 10/25/19 10/25/19 10/25/19 Range/Units 04:36 06:08 06:57 RDW 16.9 H (11.5-15.5) % Neutrophils # (1.3-7.7) k/uL Lymphocytes # 0.8 L (1.0-4.8) k/uL ABG pCO2 47 H (35-45) mmHg ABG pO2 68 L (83-108) mmHg ABG HCO3 29 H (21-25) mmol/L ABG Total CO2 31 H (19-24) mmol/L ABG O2 Saturation 92.9 L (94-97) % POC Glucose (mg/dL) 221 H (75-99) mg/dL 10/25/19 10/25/19 10/25/19 Range/Units 12:12 17:59 20:42 RDW (11.5-15.5) % Neutrophils # (1.3-7.7) k/uL Lymphocytes # (1.0-4.8) k/uL ABG pCO2 (35-45) mmHg ABG pO2 (83-108) mmHg ABG HCO3 (21-25) mmol/L ABG Total CO2 (19-24) mmol/L ABG O2 Saturation (94-97) % POC Glucose (mg/dL) 207 H 185 H 190 H (75-99) mg/dL 10/25/19 10/26/19 10/26/19 Range/Units 23:28 04:56 05:19 RDW 16.6 H (11.5-15.5) % Neutrophils # 8.9 H (1.3-7.7) k/uL Lymphocytes # 0.6 L (1.0-4.8) k/uL ABG pCO2 48 H (35-45) mmHg ABG pO2 76 L (83-108) mmHg ABG HCO3 29 H (21-25) mmol/L ABG Total CO2 31 H (19-24) mmol/L ABG O2 Saturation (94-97) % POC Glucose (mg/dL) 371 H (75-99) mg/dL 10/26/19 Range/Units 05:19 RDW (11.5-15.5) % Neutrophils # (1.3-7.7) k/uL Lymphocytes # (1.0-4.8) k/uL ABG pCO2 (35-45) mmHg ABG pO2 (83-108) mmHg ABG HCO3 (21-25) mmol/L ABG Total CO2 (19-24) mmol/L ABG O2 Saturation (94-97) % POC Glucose (mg/dL) 193 H (75-99) mg/dL Microbiology - Last 24 Hours (Table) 10/21/19 15:20 Blood Culture - Preliminary Blood No Growth after 96 hours
[2019-10-26 05:43] LABS: African American GFR (CKD) >90 (>60 ml/min/1.73 sqM); Anion Gap 8 mmol/L; Blood Urea Nitrogen 32 mg/dL (9-20); Calcium 8.6 mg/dL (8.4-10.2); Carbon Dioxide 25 mmol/L (22-30); Chloride 94 mmol/L (98-107); Glucose 195 mg/dL (74-99); Non-African American GFR(CKD) >90 (>60 ml/min/1.73 sqM); Potassium 5.3 mmol/L (3.5-5.1); Sodium 127 mmol/L (137-145)
--- NOTE | 2019-10-26 08:03 | XR ---
EXAMINATION TYPE: XR chest 1V portable DATE OF EXAM: 10/26/2019 COMPARISON: 10/25/2019 HISTORY: Tube placement TECHNIQUE: Single frontal view of the chest is obtained. FINDINGS: ET and NG tubes stable. Bilateral areas of consolidation and pleural effusion stable. Hear t prominent. Hypertrophic and degenerative change of the spine. Arthropathy of the shoulders. Biapica l pleural thickening. IMPRESSION: 1. Stable bilateral consolidation and pleural effusion. Correlate for pneumonia.
--- NOTE | 2019-10-26 08:25 | P.PN ---
Subjective Progress Note Date: 10/26/19 Principal diagnosis: coronary artery disease and status post PCI This is a very pleasant 58-year-old gentleman with coronary artery disease, hypertension, dyslipidemia, as well as chronic obstructive pulmonary disease who initially presented to the hospital with a chest discomfort and ruled in for acute non-ST patient myocardial infarction. Subsequently heart catheterization was performed and revealed severe 2 vessels coronary artery disease involving the RCA and LCx. The patient underwent successful stenting of both the RCA and LCx with an excellent angiographic results and without any complication. Subsequently the patient developed severe shortness of breath and subsequently he was diagnosed with severe COPD exacerbation and acute hypoxic respiratory failure require intubation and mechanical ventilation. The patient was seen this morning, October 252019. He continues to be intubated on mechanical ventilation. The chest x-ray continues to show findings cons istent with COPD. No evidence of congestive heart failure on the chest x-ray beside small pleural effusion. Hemodynamically he remains stable. He continues to be on dual antiplatelet therapy. The echo cardiogram continues to show finding consistent was preserved left ventricle systolic function with an ejection fraction between 50-55%. Objective - Vital Signs Vital signs: Vital Signs Temp 98 F 10/26/19 04:00 Pulse 74 10/26/19 08:11 Resp 27 H 10/26/19 07:00 BP 113/71 10/26/19 07:00 Pulse Ox 92 L 10/26/19 07:00 Intake & Output 10/25/19 10/26/19 10/26/19 18:59 06:59 18:59 Intake Total 1327 1276.583 73 Output Total 1955 1440 65 Balance -628 -163.417 8 Weight 122 kg 122.5 kg Intake: IV 661 761 53 Normal Saline Pressure 36 36 3 Bag Piperacillin-Tazobactam 3 175 125 .375 gm In Sodium Chloride 0.9% 100 ml @ 25 mls/hr IVPB Q8HR [facility] Rx# :[id number] Sodium Chloride 0.9% 1, 450 600 50 000 ml @ 50 mls/hr IV . Q20H [facility] Rx#:[id number] Intake, IV Titration 300 205.583 Amount Propofol 1,000 mg In 300 200 Empty Bag 1 bag @ Titrate IV .Q0M [facility] Rx#: [id number] fentaNYL (PF) 1,000 mcg 5.583 In Sodium Chloride 0.9% 80 ml @ 2.5 mls/hr IV . Q24H [facility] Rx#:[id number] Tube Feeding 276 220 20 Other 90 90 Output: Urine 1954 1440 65 Other: Voiding Method Indwelling Catheter Indwelling Catheter ABP, PAP, CO, CI - Last Documented Arterial Blood Pressure 105/54 - Constitutional General appearance: Present: no acute distress - Respiratory Respiratory: bilateral: diminished - Cardiovascular Rhythm: regular Heart sounds: normal: S1, S2 - Labs CBC & Chem 7: 10/26/19 05:19 10/26/19 05:19 Labs: Abnormal Lab Results - Last 24 Hours (Table) 10/25/19 10/25/19 10/25/19 Range/Units 12:12 17:59 20:42 RDW (11.5-15.5) % Neutrophils # (1.3-7.7) k/uL Lymphocytes # (1.0-4.8) k/uL ABG pCO2 (35-45) mmHg ABG pO2 (83-108) mmHg ABG HCO3 (21-25) mmol/L ABG Total CO2 (19-24) mmol/L Sodium (137-145) mmol/L Potassium (3.5-5.1) mmol/L Chloride (98-107) mmol/L BUN (9-20) mg/dL Glucose (74-99) mg/dL POC Glucose (mg/dL) 207 H 185 H 190 H (75-99) mg/dL 10/25/19 10/26/19 10/26/19 Range/Units 23:28 04:56 05:19 RDW 16.6 H (11.5-15.5) % Neutrophils # 8.9 H (1.3-7.7) k/uL Lymphocytes # 0.6 L (1.0-4.8) k/uL ABG pCO2 48 H (35-45) mmHg ABG pO2 76 L (83-108) mmHg ABG HCO3 29 H (21-25) mmol/L ABG Total CO2 31 H (19-24) mmol/L Sodium (137-145) mmol/L Potassium (3.5-5.1) mmol/L Chloride (98-107) mmol/L BUN (9-20) mg/dL Glucose (74-99) mg/dL POC Glucose (mg/dL) 371 H (75-99) mg/dL 10/26/19 10/26/19 Range/Units 05:19 05:19 RDW (11.5-15.5) % Neutrophils # (1.3-7.7) k/uL Lymphocytes # (1.0-4.8) k/uL ABG pCO2 (35-45) mmHg ABG pO2 (83-108) mmHg ABG HCO3 (21-25) mmol/L ABG Total CO2 (19-24) mmol/L Sodium 127 L (137-145) mmol/L Potassium 5.3 H (3.5-5.1) mmol/L Chloride 94 L (98-107) mmol/L BUN 32 H (9-20) mg/dL Glucose 195 H (74-99) mg/dL POC Glucose (mg/dL) 193 H (75-99) mg/dL Microbiology - Last 24 Hours (Table) 10/21/19 15:20 Blood Culture - Preliminary Blood No Growth after 96 hours Assessment and Plan Assessment: assessment #1 acute non-ST deviation myocardial infarction #2 coronary artery disease and status post PCI of the RCA and LCx #3 history of pulmonary embolism #4 acute hypoxic respiratory failure #5 chronic obstructive pulmonary disease #6 multiple comorbid conditions Plan #1 continue the current medical regimen including dual antiplatelet therapy #2 ventilator management. ICU team is on board #3 I will obtain a BNP #4 follow-up with the patient
[2019-10-26] MEDS: ISOSORBIDE MONONITRATE ER 60 MG TAB.ER.24H PO SCH ×2 (08:30→20:42)
[2019-10-26] MEDS: CLOPIDOGREL 75 MG TAB PO SCH (08:31)
[2019-10-26] MEDS: ATORVASTATIN 40 MG TAB PO SCH (08:31)
[2019-10-26] MEDS: CHOLECALCIFEROL 1,000 UNIT TAB PO SCH (08:31)
[2019-10-26] MEDS: METOPROLOL TARTRATE 50 MG TAB PO SCH ×2 (08:31→20:43)
[2019-10-26] MEDS: ASPIRIN 81 MG PO SCH (08:31)
[2019-10-26] MEDS: CYANOCOBALAMIN 500 MCG TAB PO SCH (08:33)
[2019-10-26] MEDS: DOCUSATE ORAL SOLN 100 MG/10 ML CUP PO SCH ×2 (08:36→20:41)
[2019-10-26] MEDS: NICOTINE 21MG/24HR PATCH TRANSDERM SCH (08:36)
[2019-10-26] MEDS: CHLORHEXIDINE GLUCONATE 15 ML CUP MUCOUS MEM SCH (08:36)
[2019-10-26] MEDS: INSULIN DETEMIR (LEVEMIR) 100 UNIT/ML SYR SQ SCH ×2 (08:37→20:54)
[2019-10-26] MEDS: LORATADINE 10 MG TAB PO SCH (08:37)
[2019-10-26] MEDS: PANTOPRAZOLE 40 MG/10 ML VIAL IVP SCH ×2 (08:38→20:42)
[2019-10-26] MEDS: CLOTRIMAZOLE 1% CREAM 15 GM TUBE TOPICAL SCH ×2 (08:38→20:53)
[2019-10-26] MEDS: SODIUM CHLORIDE 0.9% 1,000 ML IV SCH (08:39)
[2019-10-26] MEDS ORDERED: BISACODYL 10 MG SUPP RECTAL STA (10:57)
--- NOTE | 2019-10-26 11:37 | PN ---
PROGRESS NOTE PULMONARY/CRITICAL CARE PROGRESS NOTE: CRITICAL CARE TIME: 33 minutes. DATE OF SERVICE: 10/26/2019 This is a 58-year-old male who was admitted on October [address]-segment elevation myocardial infarction and CAD. He went to the denture laboratory technician on the 10/17 and 10/18, first for a stent in his RCA on 10/17 and then a stent to his circumflex on 10/18. He was intubated on 10/18. He remains on the mechanical ventilator. The patient has acute hypoxemic hypercapnic respiratory failure. His vent settings are the volume assist- control mode rate of 28, tidal volume 500, FiO2 of 50%, and a PEEP of 8. Blood gases show pO2 of 76, pCO2 of 48, pH of 7.39. He is on Diprivan at 75 mcg/kg per minute, fentanyl at 50 mcg/hour, 0.9 at 50 mL an hour and Vital high-protein at 20 with a goal of 20. Today, I asked the nurses to make sure he got a daily interruption of sedation and spontaneous breathing trial. Current vital signs are reviewed, temperature 98.5, heart rate 80, respiratory rate 28, blood pressure 111/72 mean 85, saturations are in the mid 90s. Appears in no acute distress. Currently sedated. He is on both propofol and fentanyl. HEENT: Examination is grossly unremarkable. He has an orally placed endotracheal tube and NG tube. NECK: Supple. Full range of motion. No adenopathy. Neck veins are flat. CARDIOVASCULAR: Examination reveals regular rhythm and rate. Heart rate 80 beats per minute. Heart sounds are distant. S1, S2 normal. No distinct murmur. LUNGS: Reveal a few scattered bilateral rhonchi. Breath sounds equal. No wheezes or crackles. ABDOMEN: Soft, bowel sounds are noted. EXTREMITIES: Intact. Slight edema. SKIN: Without rash. NEUROLOGIC: Could not be properly assessed as the patient is currently sedated heavily with both propofol and fentanyl. LAB: Date is reviewed. CBC is completely normal. Blood gases have already been noted. This combined with a mixed acid-base disturbance, with a combined respiratory acidosis and metabolic alkalosis. Sodium 127, potassium 5.3, chloride 94, CO2 is 25, anion gap is 8. BUN and creatinine were 32 and 0.7. Microbiologic studies are negative. Chest x-ray from October 25 shows retrocardiac consolidation in either infiltrate or atelectasis at the right lung base. MEDICATIONS: Reviewed. The patient is on aspirin, Lipitor, atropine, chlorhexidine, cholecalciferol, Plavix, clotrimazole cream, vitamin B12, Colace, fentanyl, Dilaudid, insulin, DuoNeb, Imdur, lactulose, lisinopril, loratadine, Maalox, Solu-Medrol, Reglan, Narcan, nicotine patch, nitroglycerin, Protonix, Zosyn, propofol and Xarelto. ASSESSMENT: 1. Acute hypoxemic and hypercapnic respiratory failure secondary to severe COPD exacerbation as well as acute on chronic diastolic congestive heart failure. 2. Acute non ST-segment elevation myocardial infarction with previous stenting on 10/17 of the right coronary artery and on 10/18, the circumflex coronary artery. 3. History of severe peripheral neuropathy. 4. Prior history of myocardial infarction. 5. Nicotine dependence syndrome. 6. History of prostate cancer, status post radical prostatectomy, 2001. 7. Hyperlipidemia. 8. Pulmonary embolism. 9. Sleep apnea syndrome. 10.Type 2 diabetes. 11.Gastroesophageal reflux disease. 12.Benign essential hypertension. 13.Hyponatremia. PLAN: The patient will have a daily interruption of sedation and a potential spontaneous breathing trial. Obviously, the Diprivan and fentanyl have to be turned off. He was intubated on the . He remains on the ventilator. It has been 7 days. If he does not show improvement, he might be headed towards tracheostomy and PEG tube placement. He is currently on Vital high-protein at goal. Will continue to follow. Blood gases show a classic example of a mixed acid-base disturbance with a combined respiratory acidosis and metabolic alkalosis. Medications are reviewed. Additional recommendations and suggestions are forthcoming. CRITICAL CARE TIME: 33 minutes. MMODL / IJN: [id number] /
[2019-10-26] MEDS: LISINOPRIL 2.5 MG TAB PO SCH (11:59)
[2019-10-26 12:24] LABS: Glucose,Whole Blood 167 mg/dL (75-99)
--- NOTE | 2019-10-26 16:38 | PN ---
PROGRESS NOTE DATE OF SERVICE: 10/26/2019 This 58-year-old gentleman who was admitted with acute sdn-VH-ynqflfl-elevation myocardial infarction had PTCA and stenting of the RCA and stenting of the first obtuse marginal branch. The patient has bilateral pneumonia, possibly hospital- acquired, and the patient was intubated. The patient is currently extubated and is confused at this time. Most recent chest x-ray, which was reviewed personally by me, showed significant improvement, but multiple lesions are left on the right side. Past medical history reviewed. REVIEW OF SYSTEMS: CARDIOVASCULAR SYSTEM: No angina, palpitations. RESPIRATORY SYSTEM: As mentioned earlier. GI: As mentioned earlier. : No dysuria or retention. NERVOUS SYSTEM: No numbness, weakness. CURRENT MEDICATIONS: Reviewed. They include: 1. Maalox 30 mL q.4 p.r.n. 2. DuoNeb q.i.d. and p.r.n. 3. Aspirin 81 mg daily. 4. Lipitor 40 mg daily. 5. Peridex. 6. Vitamin D3. 7. Plavix 75 mg daily. 8. Lotrimin. 9. Vitamin B12. 10.Fentanyl previously. 11.Levemir. 12.Imdur. 13.Cephulac. 14.Zestril. 15.Solu-Medrol. 16.Lopressor. 17.Habitrol. 18.Protonix. 19.Zosyn. 20.Xarelto. Doses are reviewed. PHYSICAL EXAMINATION: Patient is alert and oriented . Pulse 80, blood pressure is 160/88, respiration 15, temperature 97.9, pulse ox 93% on 6 L. HEENT: Conjunctivae normal. NECK: No jugular venous distention. CARDIOVASCULAR SYSTEM: S1, S2 muffled. RESPIRATORY SYSTEM: Breath sounds diminished at the bases. A few scattered rhonchi and crackles., right more than the left. ABDOMEN: Soft, obese. LEGS: No edema. No swelling. NERVOUS SYSTEM: No focal deficit. LABS: WBC 10.2; otherwise sodium 127, potassium 5.3. ASSESSMENT: 1. Acute mgo-WC-qlfosra-elevation myocardial infarction, status post percutaneous transluminal coronary angioplasty and stenting of the mid right coronary artery and second angiogram and stenting of the first obtuse marginal, circumflex artery. 2. Bilateral pneumonia, possibly hospital-acquired, with possible aspiration pneumonia, right more than the left, with acute hypoxic hypercarbic respiratory failure, status post mechanical ventilation. 3. Change in mental status, acute metabolic encephalopathy, multifactorial. 4. Chronic obstructive pulmonary disease, acute exacerbation. 5. Obesity hypoventilation syndrome. 6. Hyponatremia. 7. History of nicotine dependence. 8. History of substance abuse with tetrahydrocannabinol. 9. History of obesity with body mass index of 37. 10.Diabetes mellitus, type 2, with diabetic peripheral neuropathy. 11.Hypertension. 12.Hyperlipidemia. 13.History of congestive heart failure, chronic. 14.History of chronic hypoxic respiratory failure, 2 to 2.5 liters nasal cannula at home. 15.History of gastroesophageal reflux disease. 16.History of pulmonary embolism, on Xarelto 15 mg. 17.History of prostate cancer. 18.Hyponatremia. 19.History of methicillin-resistant Staphylococcus aeruginosa, vancomycin- resistant Enterococcus. 20.History of asthma, chronic obstructive pulmonary disease. 21.History of anxiety, depression. 22.FULL CODE. RECOMMENDATIONS AND DISCUSSION: I recommend to continue current medications, continue with the monitoring, symptomatic treatment, bronchodilators. Continue with the antibiotics. Continue with high- flow oxygen, BiPAP. Otherwise, continue the rest of the medications. Prognosis guarded. Further recommendations to follow. Closely follow with Cardiology and Pulmonology. MMODL / IJN: [id number] / SHANNON
[2019-10-26 17:33] LABS: Glucose,Whole Blood 109 mg/dL (75-99)
[2019-10-26] MEDS: RIVAROXABAN 15 MG TAB PO SCH (17:45)
[2019-10-26] MEDS: ACETAMINOPHEN TAB 325 MG TAB PO PRN (18:10)
[2019-10-26] MEDS: fentaNYL (PF) 1,000 MCG in SODIUM CHLORIDE 0.9% 80 ML IV SCH (19:49)
[2019-10-26 20:55] LABS: Glucose,Whole Blood 128 mg/dL (75-99)
[2019-10-27] MEDS: METOCLOPRAMIDE 5 MG/ML 2 ML VIAL IVP SCH ×2 (00:16→06:45)
[2019-10-27] MEDS: PIPERACILLIN-TAZOBACTAM 3.375 GM in SODIUM CHLORIDE 0.9% 100 ML IVPB SCH ×2 (00:16→08:05)
[2019-10-27] MEDS: methylPREDNISolone SOD SUCCI 40 MG/ML 1 ML VIAL IV SCH ×2 (02:23→08:05)
[2019-10-27] MEDS: SODIUM CHLORIDE 0.9% 1,000 ML IV SCH (02:26)
[2019-10-27] MEDS: IPRATROPIUM-ALBUTEROL 3 ML NEB INHALATION SCH ×5 (02:49→19:19)
[2019-10-27 05:51] LABS: Anisocytosis Slight; Basophils % (A) 0 %; Eosinophils % (A) 0 %; HCT 47.2 % (39.0-53.0); Lymphocytes # (A) 0.6 k/uL (1.0-4.8); Lymphocytes % (A) 4 %; MCH 29.5 pg (25.0-35.0); MCHC 31.7 g/dL (31.0-37.0); Monocytes # (A) 0.6 k/uL (0-1.0); Monocytes % (A) 4 %; Neutrophils % (A) 91 %; Platelet Count 191 k/uL (150-450); RBC 5.07 m/uL (4.30-5.90); RDW 16.8 % (11.5-15.5); WBC 14.4 k/uL (3.8-10.6)
[2019-10-27 06:11] LABS: African American GFR (CKD) >90 (>60 ml/min/1.73 sqM); Anion Gap 9 mmol/L; Blood Urea Nitrogen 32 mg/dL (9-20); Calcium 8.6 mg/dL (8.4-10.2); Carbon Dioxide 26 mmol/L (22-30); Chloride 94 mmol/L (98-107); Glucose 141 mg/dL (74-99); Non-African American GFR(CKD) >90 (>60 ml/min/1.73 sqM); Sodium 129 mmol/L (137-145)
[2019-10-27] MEDS: INSULIN ASPART (NovoLOG) 100 UNIT/ML VIAL SQ SCH ×4 (07:12→21:00)
--- NOTE | 2019-10-27 07:27 | P.PN ---
Subjective Progress Note Date: 10/27/19 Principal diagnosis: coronary artery disease and status post PCI This is a very pleasant 58-year-old gentleman with coronary artery disease, hypertension, dyslipidemia, as well as chronic obstructive pulmonary disease who initially presented to the hospital with a chest discomfort and ruled in for acute non-ST patient myocardial infarction. Subsequently heart catheterization was performed and revealed severe 2 vessels coronary artery disease involving the RCA and LCx. The patient underwent successful stenting of both the RCA and LCx with an excellent angiographic results and without any complication. Subsequently the patient developed severe shortness of breath and subsequently he was diagnosed with severe COPD exacerbation and acute hypoxic respiratory failure require intubation and mechanical ventilation. The patient was seen this morning, October 262019. He was extubated yesterday. At this point he denies any chest pain or chest discomfort. He stated that his shortness of breath is better. He is hemodynamically stable. He continues to be on dual antiplatelet therapy. I would anticipate the patient to be discharged home in the next 24-48 hours. Objective - Vital Signs Vital signs: Vital Signs Temp 97.9 F 10/27/19 04:00 Pulse 85 10/27/19 06:00 Resp 15 10/27/19 06:00 BP 118/73 10/27/19 06:00 Pulse Ox 90 L 10/27/19 06:00 Intake & Output 10/26/19 10/27/19 10/27/19 18:59 06:59 18:59 Intake Total 976.479 686 Output Total 1730 2035 Balance -753.521 -1349 Weight 122.4 kg Intake: IV 711 686 Normal Saline Pressure 36 36 Bag Piperacillin-Tazobactam 3 75 .375 gm In Sodium Chloride 0.9% 100 ml @ 25 mls/hr IVPB Q8HR [facility] Rx# :[id number] Sodium Chloride 0.9% 1, 600 650 000 ml @ 50 mls/hr IV . Q20H [facility] Rx#:[id number] Intake, IV Titration 175.479 Amount Propofol 1,000 mg In 116.354 Empty Bag 1 bag @ Titrate IV .Q0M [facility] Rx#: [id number] fentaNYL (PF) 1,000 mcg 59.125 In Sodium Chloride 0.9% 80 ml @ 2.5 mls/hr IV . Q24H [facility] Rx#:[id number] Tube Feeding 60 Other 30 Output: Urine 1730 5 Other: Voiding Method Indwelling Catheter Indwelling Catheter # Bowel Movements 1 1 ABP, PAP, CO, CI - Last Documented Arterial Blood Pressure 130/69 - Constitutional General appearance: Present: no acute distress - Respiratory Respiratory: bilateral: CTA - Cardiovascular Heart sounds: normal: S1, S2 - Labs CBC & Chem 7: 10/27/19 04:52 10/27/19 04:52 Labs: Abnormal Lab Results - Last 24 Hours (Table) 10/26/19 10/26/19 10/26/19 Range/Units 12:22 17:32 20:52 WBC (3.8-10.6) k/uL RDW (11.5-15.5) % Neutrophils # (1.3-7.7) k/uL Lymphocytes # (1.0-4.8) k/uL Sodium (137-145) mmol/L Chloride (98-107) mmol/L BUN (9-20) mg/dL Creatinine (0.66-1.25) mg/dL Glucose (74-99) mg/dL POC Glucose (mg/dL) 167 H 109 H 128 H (75-99) mg/dL 10/27/19 10/27/19 Range/Units 04:52 04:52 WBC 14.4 H (3.8-10.6) k/uL RDW 16.8 H (11.5-15.5) % Neutrophils # 13.0 H (1.3-7.7) k/uL Lymphocytes # 0.6 L (1.0-4.8) k/uL Sodium 129 L (137-145) mmol/L Chloride 94 L (98-107) mmol/L BUN 32 H (9-20) mg/dL Creatinine 0.63 L (0.66-1.25) mg/dL Glucose 141 H (74-99) mg/dL POC Glucose (mg/dL) (75-99) mg/dL Microbiology - Last 24 Hours (Table) 10/21/19 15:20 Blood Culture - Preliminary Blood No Growth after 120 hours Assessment and Plan Assessment: assessment #1 acute non-ST deviation myocardial infarction #2 coronary artery disease and status post PCI of the RCA and LCx #3 history of pulmonary embolism #4 acute hypoxic respiratory failure #5 chronic obstructive pulmonary disease #6 multiple comorbid conditions Plan #1 continue the current medical regimen including dual antiplatelet therapy #2 possible discharge home. Next 24-48 hours
--- NOTE | 2019-10-27 07:47 | XR ---
EXAMINATION TYPE: XR chest 1V portable DATE OF EXAM: 10/27/2019 COMPARISON: 10/26/2019 HISTORY: Abnormal x-ray TECHNIQUE: Single frontal view of the chest is obtained. FINDINGS: ET and NG tubes have been removed. There is improving aeration with persistent areas of co nsolidation involving the lung bases. Reducing pleural effusion suspected. Heart size normal. Underly ing COPD suspected. Biapical pleural thickening. Arthropathy of the shoulders. Hypertrophic change of the spine. IMPRESSION: 1. Improving aeration at the lung bases with persistent areas of consolidation and tiny effusion. 2. Correlate for underlying COPD.
[2019-10-27] MEDS: DOCUSATE ORAL SOLN 100 MG/10 ML CUP PO SCH ×2 (08:01→21:07)
[2019-10-27] MEDS: INSULIN DETEMIR (LEVEMIR) 100 UNIT/ML SYR SQ SCH ×2 (08:05→21:00)
[2019-10-27] MEDS: PANTOPRAZOLE 40 MG/10 ML VIAL IVP SCH ×2 (08:05→21:00)
[2019-10-27] MEDS: NICOTINE 21MG/24HR PATCH TRANSDERM SCH (08:05)
[2019-10-27] MEDS: CYANOCOBALAMIN 500 MCG TAB PO SCH (08:06)
[2019-10-27] MEDS: ATORVASTATIN 40 MG TAB PO SCH (08:06)
[2019-10-27] MEDS: CLOPIDOGREL 75 MG TAB PO SCH (08:06)
[2019-10-27] MEDS: ISOSORBIDE MONONITRATE ER 60 MG TAB.ER.24H PO SCH ×2 (08:07→21:00)
[2019-10-27] MEDS: ASPIRIN 81 MG PO SCH (08:07)
[2019-10-27] MEDS: LISINOPRIL 2.5 MG TAB PO SCH (08:07)
[2019-10-27] MEDS: CHOLECALCIFEROL 1,000 UNIT TAB PO SCH (08:07)
[2019-10-27] MEDS: METOPROLOL TARTRATE 50 MG TAB PO SCH ×2 (08:07→21:00)
[2019-10-27] MEDS: CLOTRIMAZOLE 1% CREAM 15 GM TUBE TOPICAL SCH ×2 (08:34→21:01)
--- NOTE | 2019-10-27 09:51 | P.PN ---
Subjective Progress Note Date: 10/27/19 Principal diagnosis: acute hypoxic and hypercapnic respiratory failure, multifactorial This is a 58-year-old white male, familiar to my service, known history of severe COPD, saw the patient for the first time on 07/03/2017, and I saw him back then mostly for an acute exacerbation of COPD. Patient was treated mostly with bronchodilators, antibiotics, steroids, and he was discharged home. Since then I have seen the patient on outpatient basis, and the last evaluation was via p amalia visit/telemedicine about 2 weeks ago. Patient had mostly symptoms of COPD exacerbation, treated with prednisone and doxycycline and advised to continue his bronchodilators. He was also advised to stop smoking. At any rate on 10/16/19, patient presented to the emergency room with chest pain consistent with acute coronary syndrome. He was seen by cardiology on consultation, and the patient had a previous stenting of the left circumflex coronary artery. Patient was treated with aspirin, heparin, nitroglycerin, and he underwent cardiac catheterization by Dr. Camilo. This was done on 10/18, and the patient underwent stenting of the first obtuse marginal branch of the left circumflex. This was successful, patient was placed on dual antiplatelet therapy, and advised to have aggressive cholesterol control. Last night, the patient developed worsening pulmonary status, he was noted to have profound shortness of breath, and he became obtunded with significant hypercapnia and hypoxia. Tried on BiPAP, and apparently his ABG was getting worse. Hence I was notified about this patient, and I recommended immediate transfer to the intensive care unit and intubation. Patient was intubated, and I was asked to see him on consultation. ABG before intubation showed a pO2 of 84, pCO2 of 120 and pH of 7.16. This morning ABG showed a pO2 of 53 pCO2 of 63 and pH of 7.40. Hence his FiO2 was increased from 60% to 70%, and his PEEP was increased to 8. Patient is now on mechanical ventilation, and his assist-control rate is 28, tidal volume is 500, FiO2 is 70%, and PEEP is 8. Chest x-ray showed evidence of interstitial edema, hence I recommended Lasix 40 mg IV push 1. And I cut down his IV fluid to KVO. Patient is on propofol at 60 mcg/kg/m, he was on norepinephrine which has been discontinued after the patient responded to fluid boluses last night. Patient was reevaluated today on 10/21/19, patient remains in the intensive care unit, intubated, mechanically ventilated. He is on assist control rate of 28 tidal volume is 500 FiO2 is 60% and PEEP was 8 however I increased the PEEP up to 10. Patient remains on propofol at 45 mcg/kg/m, not requiring norepinephrine today, his IV fluid is 0.9 at 20 mL per hour. Patient's ABG showed a pO2 of 65 pCO2 of 55 pH of 7.43. Patient had low-grade fever overnight, he is in sinus rhythm rate of 98. Sputum Cultures are nondiagnostic so far. Basic metabolic profile showed a low sodium of 126, could very well be related to diuresis yesterday, hence we'll restart the patient on 0.9 normal saline at 75 mL per hour today. Patient is in definite negative fluid balance. Echocardiogram was ordered today to assess his LV function. Chest x-ray showed mostly subsegmental basilar atelectasis, improved compared to the chest x-ray done yesterday Patient was reevaluated today on 10/22/19, patient remains in the ICU, intubated, mechanically ventilated, and his ABG remains marginal with a pO2 of 64 pCO2 of 55 and pH of 7.43. Patient is on assist control mode of mechanical ventilation rate of 28 tidal volume is 500 FiO2 is 60% and I cut it down to 55% and PEEP is at 10. Patient remains on propofol at 25 mcg/kg/m, he is off norepinephrine, IV fluid at 75 mL per hour. His urine output is over 100 mL per hour. Patient is in slightly positive fluid balance. He is on enteral feeding, and it is at goal. Chest x-ray showed minimal atelectasis and interstitial edema at the bases. Hence cut down his IV fluid to KVO, did not recommend any diuretics at this point yet. Patient had a low-grade fever last night and this morning with a temp of 99.9. WBC count is improving. Sodium is a bit low at 126. Sputum cultures are pending. In the meantime the patient remains on Zosyn. Reevaluated today on 10/23/19, patient remains intubated and mechanically ventilated. His ventilator settings are assist control rate of 28 tidal volume is 500 FiO2 is 55% and PEEP is at 10. ABG remains marginal with a pO2 of 67 pCO2 of 55 pH of 7.40. Patient is on propofol at 60 mcg/kg/m. He is on enteral feeding but presently on hold because of intermittent nausea hence I recommended Reglan and recommended a flat plate of the abdomen. Patient is arousable with lower dose of propofol, and he follows simple instructions. Chest x-ray showed increased infiltrate or atelectasis in the right lower lobe, otherwise no major change on the chest x-ray. His labs were reviewed, sodium is a bit better with sodium of 129 today. Patient remains with good urine output over 100 mL per hour. Overall not much of a change except for maybe a slight improvement in his ABG, but based on the ABG is not ready for weaning.. Patient remains on r elatively high FiO2 and high PEEP. Reevaluated today on 10/24/19, patient remains in the ICU, intubated and mechanically ventilated. His ventilator settings are assist control rate of 28 tidal volume is 500 FiO2 is 55% PEEP is 10. Today I cut down his FiO2 to 50%. His ABG showed a pO2 of 71 pCO2 of 49 pH of 7.43. Patient remains on propofol at 65 mcg/kg/m, he is hemodynamically stable, not requiring any pressors, remains on Zosyn for presumptive right lower lobe pneumonia/infiltrate. Patient is having some purulent secretions from the endotracheal tube, and they seem to be ferguson and yellow. Labs showed low sodium of 130 otherwise the labs are unremarkable bicarb is 32. WBC count is 7.6 hemoglobin is 14.3. Patient remains on GI and DVT prophylaxis, antibiotics, and on enteral feeding. Based on his ABG, the patient is not ready for any form of weaning. Reevaluated today on 10/25/19, remains in the ICU, intubated and mechanically ventilated. Patient is on assist control rate of 28 tidal volume is 500 FiO2 is 50% PEEP is 10. His pO2 was noted to be 68, pCO2 of 47 pH of 7.41. I did cut down the PEEP to 8. He remains on propofol at 75 mcg/kg/m, and his IV fluid is at KVO however I increased the fluids to 50 mL per hour. Patient is not requiring any pressors. Chest x-ray is showing improvement in his right lower lobe atelectasis/infiltrates. No evidence of congestive heart failure. Patient remains on enteral feeding. He is arousable in spite of being on high dose of propofol, and he follows simple instructions. Sodium is a bit low at 129 renal functioning is normal. CBC is normal. On 10/27/2019 patient seen in follow-up in the intensive care unit, yesterday we successfully weaned and extubated him from the mechanical ventilator. Patient did not use BiPAP support overnight, he states he cannot use BiPAP. Is currently on 6 L of oxygen, doing well, no worsening dyspnea, his O2 saturation is 94%, hemodynamically patient is stable, he is afebrile, current IV is 0.9 normal saline at 60 ML per hour, no other drips, today's chest x-ray has been reviewed showing basilar atelectasis. She remains in sinus rhythm with a controlled rate. patient is afebrile, he remains on empiric antibiotics in the form of Zosyn, and sputum culture blood cultures were negative to date. we will discontinue the IV Zosyn. She is tolerating oral intake, he has no specific com plaints, no complaints of chest pain. Objective - Vital Signs Vital signs: Vital Signs Temp 98.3 F 10/27/19 08:00 Pulse 76 10/27/19 08:55 Resp 12 10/27/19 08:00 BP 144/77 10/27/19 08:00 Pulse Ox 94 L 10/27/19 08:00 Intake & Output 10/26/19 10/27/19 10/27/19 18:59 06:59 18:59 Intake Total 976.479 686 Output Total 1730 2035 Balance -753.521 -1349 Weight 122.4 kg Intake: IV 711 686 Normal Saline Pressure 36 36 Bag Piperacillin-Tazobactam 3 75 .375 gm In Sodium Chloride 0.9% 100 ml @ 25 mls/hr IVPB Q8HR [facility] Rx# :[id number] Sodium Chloride 0.9% 1, 600 650 000 ml @ 50 mls/hr IV . Q20H [facility] Rx#:[id number] Intake, IV Titration 175.479 Amount Propofol 1,000 mg In 116.354 Empty Bag 1 bag @ Titrate IV .Q0M [facility] Rx#: [id number] fentaNYL (PF) 1,000 mcg 59.125 In Sodium Chloride 0.9% 80 ml @ 2.5 mls/hr IV . Q24H [facility] Rx#:[id number] Tube Feeding 60 Other 30 Output: Urine 1730 5 Other: Voiding Method Indwelling Catheter Indwelling Catheter # Bowel Movements 1 1 ABP, PAP, CO, CI - Last Documented Arterial Blood Pressure 130/69 - Exam GENERAL EXAM: Alert, . Pleasant, 58-year-old white male, on 6 L of oxygen with a pulse ox of 94%, comfortable in no apparent distress. HEAD: Normocephalic/atraumatic. EYES: Normal reaction of pupils, equal size. Conjunctiva pink, sclera white. NOSE: Clear with pink turbinates. THROAT: No erythema or exudates. NECK: No masses, no JVD, no thyroid enlargement, no adenopathy. CHEST: No chest wall deformity. Symmetrical expansion. LUNGS: Equal air entry with no crackles, wheeze, rhonchi or dullness. CVS: Regular rate and rhythm, normal S1 and S2, no gallops, no murmurs, no rubs ABDOMEN: Soft, nontender. No hepatosplenomegaly, normal bowel sounds, no guarding or rigidity. EXTREMITIES: No clubbing, no edema, no cyanosis, 2+ pulses and upper and lower extremities. MUSCULOSKELETAL: Muscle strength and tone normal. SPINE: No scoliosis or deformity SKIN: No rashes CENTRAL NERVOUS SYSTEM: Alert and oriented -3. No focal deficits, tone is normal in all 4 extremities. PSYCHIATRIC: Alert and oriented -3. Appropriate affect. Intact judgment and insight. - Labs CBC & Chem 7: 10/27/19 04:52 10/27/19 04:52 Labs: Abnormal Lab Results - Last 24 Hours (Table) 10/26/19 10/26/19 10/26/19 Range/Units 12:22 17:32 20:52 WBC (3.8-10.6) k/uL RDW (11.5-15.5) % Neutrophils # (1.3-7.7) k/uL Lymphocytes # (1.0-4.8) k/uL Sodium (137-145) mmol/L Chloride (98-107) mmol/L BUN (9-20) mg/dL Creatinine (0.66-1.25) mg/dL Glucose (74-99) mg/dL POC Glucose (mg/dL) 167 H 109 H 128 H (75-99) mg/dL 10/27/19 10/27/19 Range/Units 04:52 04:52 WBC 14.4 H (3.8-10.6) k/uL RDW 16.8 H (11.5-15.5) % Neutrophils # 13.0 H (1.3-7.7) k/uL Lymphocytes # 0.6 L (1.0-4.8) k/uL Sodium 129 L (137-145) mmol/L Chloride 94 L (98-107) mmol/L BUN 32 H (9-20) mg/dL Creatinine 0.63 L (0.66-1.25) mg/dL Glucose 141 H (74-99) mg/dL POC Glucose (mg/dL) (75-99) mg/dL Microbiology - Last 24 Hours (Table) 10/21/19 15:20 Blood Culture - Preliminary Blood No Growth after 120 hours Assessment and Plan Plan: assessment: #1. Acute hypoxemic and hypercapnic respiratory failure secondary to severe COPD exacerbation as well as acute on chronic diastolic congestive heart failure #2. Acute non-ST segment elevated myocardial infarction with previous stenting on 518 of the right coronary artery and on 519 on the circumflex coronary artery #3. History of severe peripheral neuropathy #4. Prior history of myocardial infarction #5. Nicotine dependence syndrome #6. History of prostate cancer, status post radical prostatectomy, and 2001 #7. Hyperlipidemia #8. Pulmonary embolism #9. Sleep apnea syndrome, not currently using CPAP device #10. Type 2 diabetes mellitus #11. GERD/reflux #12. Benign essential hypertension #13. Hyponatremia Plan: Chest x-ray has been reviewed with Dr. Dolan, patient has been seen and evaluated together with Dr. Dolan, doing well, tolerating extubation well so far, continue weaning FiO2, we'll switch the IV steroids to oral prednisone, continue with breathing treatments, but can discontinue the IV Zosyn, culture data has been reviewed, and blood cultures have shown no growth, patient has been afebrile. No acute events overnight, no specific complaints, patient can be transferred out of intensive care unit to [facility] care today. Not requiring BiPAP support, will discontinue the BiPAP. I performed a history & physical examination of the patient and discussed their management with my nurse practitioner, Galina Cui. I reviewed the nurse practitioner's note and agree with the documented findings and plan of care. Lung sounds are positive for diminished breath sounds. The findings and the impression was discussed with the patient. I attest to the documentation by the nurse practitioner. Time with Patient: Less than 30
[2019-10-27 11:50] LABS: Glucose,Whole Blood 102 mg/dL (75-99)
[2019-10-27] MEDS: ACETAMINOPHEN TAB 325 MG TAB PO PRN ×2 (13:32→21:02)
[2019-10-27] MEDS: predniSONE 20 MG TAB PO SCH (13:32)
[2019-10-27 14:09] VITALS: BMI 37.6
--- NOTE | 2019-10-27 14:42 | CDI ---
Documentation Clarification Form Date: 10/27/2019 02:24:52 PM From: Nati Duenas Admit Date: 10/16/2019 02:02:00 PM Patient Name: Obi Matamoros Visit Number: [id number] Discharge Date: ATTENTION: The Clinical Documentation Specialists (CDI) and [facility] Coding Staff appreciate your assistance in clarifying documentation. Please respond to the clarification below the line at the bottom and electronically sign. The CDI & [facility] Coding staff will review the response and follow-up if needed. Please note: Queries are made part of the Legal Health Record. If you have any questions, please contact the author of this message via ITS. Dr. Keira Kc The diagnosis Sepsis was documented in progress note 10/20 and 10/21 by Internal Medicine. History/Risk Factors: 58-year-old male presents to the ED with burning chest pain radiating to the face and back for four days. Medical history CAD, CHF, COPD, GERD, HTN, DM2 Clinical Indicators: 10/20 VSS 107/57 98 100.8 36 91% Mechanical Ventilator 10/20 CXR - Subsegmental basilar atelectatic changes. There is underlying emphysema 10/20 Labs Wbc 16.2, Neutrophils 14.5 Admission for Acute non -ST -segment-elevation myocardial infarction 10/20 Per Internal Medicine progress note Sepsis, possible developing pneumonia. Treatment: 10/20 Zosyn Ivpb Q 8Hr d/c 10/26, 0.9ns 50cchr, Please clarify if the Sepsis was: Present/active this admission Treated and resolved this admission Ruled out Other, please specify Clinically unable to determine (Last Query Form Revision: January 2019) Present/active this admission MTDD
[2019-10-27 16:36] LABS: Glucose,Whole Blood 130 mg/dL (75-99)
[2019-10-27] MEDS: RIVAROXABAN 15 MG TAB PO SCH (16:43)
[2019-10-27] MEDS: FUROSEMIDE 40 MG TAB PO SCH (16:43)
--- NOTE | 2019-10-27 17:29 | PN ---
PROGRESS NOTE DATE OF SERVICE: 10/27/2019 This is a 58-year-old gentleman admitted with acute jdk-LS-oibuegd-elevation myocardial infarction. Also PTCA, subsequently patient hospital acute pneumonia, possible with acute respiratory failure. Patient was mechanically extubated. Patient is being closely monitored at this time. The patient complains of weakness, multiple consultants are following the patient closely including Cardiology, Pulmonology and most recent chest x-ray which was reviewed personally by me showed bilateral lesions still persisting. PAST MEDICAL HISTORY: Reviewed. REVIEW OF SYSTEMS: CARDIOVASCULAR SYSTEM: No angina or palpitations. RESPIRATORY: As mentioned earlier. GI: As mentioned earlier. : No dysuria. NERVOUS SYSTEM: As mentioned earlier. CURRENT MEDICATIONS: Reviewed and include: 1. Tylenol p.r.n. 2. Maalox 30 mL q.4 p.r.n. 3. DuoNeb q.i.d. and p.r.n. 4. Aspirin 81 mg p.r.n. 5. Lipitor 40 mg. 6. Vitamin D3 one thousand daily. 7. Plavix 75 mg daily. 8. Lortab. 9. Vitamin B12 daily. 10.Colace. 11.NovoLog. 12.Levemir. 13.Imdur 60 mg p.o. b.i.d. 14.Cephulac 20 mg p.o. daily. 15.Zestril 22.5 mg daily. 16.Lopressor 50 mg p.o. b.i.d. 17.Narcan. 18.Habitrol 21. 19.Protonix. 20.Prednisone 40 mg daily. 21.Cozaar 50 mg p.o. with supper. PHYSICAL EXAMINATION: Patient is alert, oriented x3. Pulse is 79. Blood pressure is 125/72, respiration 16, temperature 98.2, pulse ox 98% on 6 L. HEENT: Conjunctivae normal. NECK: No jugular venous distension. RESPIRATORY SYSTEM: Breath sounds diminished at the bases, bilateral scattered rhonchi, no crackles. ABDOMEN: Soft, nontender. LEGS: No edema, no swelling. NERVOUS SYSTEM: No focal deficits. LABS: WBC is 14.4, sodium is 129. ASSESSMENT: 1. Acute xmx-AJ-ytvvnkv-elevation myocardial infarction, status post PTCA and stenting of the mid RCA and as well as second angiogram and stenting of the first obtuse marginal artery. 2. History of bilateral pneumonia, possibly hospital acquired with possible aspiration pneumonia, right more than the left with acute hypoxic hypercarbic respiratory failure status post mechanical ventilation. 3. Change in mental status with acute metabolic encephalopathy multifactorial. 4. Chronic obstructive pulmonary disease acute exacerbation. 5. Obesity hypoventilation syndrome. 6. Hyponatremia. 7. History of nicotine dependence. 8. History of substance abuse with THC. 9. Obesity with body mass index of 37. 10.Diabetes type 2 with diabetic peripheral neuropathy. 11.Hypertension. 12.Hyperlipidemia. 13.History of congestive heart failure, chronic. 14.History of chronic hypoxic respiratory failure on 2 to 2.5 L nasal cannula at home. 15.History of gastroesophageal reflux disease. 16.History of pulmonary embolism on Xarelto 15 mg. 17.History of prostate cancer. 18.Hyponatremia. 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 20.History of asthma, chronic obstructive pulmonary disease. 21.History of anxiety, depression. 22.FULL CODE. RECOMMENDATION: Recommend to continue current medications, continue with the monitoring and symptomatic treatment, continue with the bronchodilators. Recommend obtain the cultures. At this time repeat labs, sodium is 129. Increase ambulation. The patient is on high-dose oxygen. I will continue with current medication. I recommend incentive spirometry and we will check for home O2. Otherwise, DVT prophylaxis. Prognosis guarded because of multiple complex medical conditions. Further recommendations to follow. Patient is on Xarelto at this time. MMODL / IJN: [id number] /
[2019-10-27] MEDS: SYMBICORT 160-4.5 MCG INHALER INHALATION SCH (19:19)
[2019-10-27 20:22] LABS: Glucose,Whole Blood 171 mg/dL (75-99)
[2019-10-27 20:24] LABS: Appearance,Urine Turbid (Clear); Bilirubin,Urine Negative (Negative); Blood,Urine Large (Negative); Budding Yeast,Urine Many /hpf; Color,Urine Light Red; Glucose,Urine (UA) Negative (Negative); Ketones,Urine Negative (Negative); Leukocyte Esterase,Urine Negative (Negative); Mucus,Urine Rare /hpf; Nitrite,Urine Negative (Negative); PH, Urine 7.5 (5.0-8.0); Protein,Urine Trace (Negative); RBC,Urine >182 /hpf (0-5); Specific Gravity,Urine 1.025 (1.001-1.035); Urobilinogen,Urine <2.0 mg/dL (<2.0); WBC,Urine 62 /hpf (0-5)
[2019-10-28] MEDS: IPRATROPIUM-ALBUTEROL 3 ML NEB INHALATION SCH ×5 (01:03→21:15)
[2019-10-28 05:52] LABS: Anisocytosis Slight; Basophils % (A) 0 %; Eosinophils % (A) 0 %; HCT 48.6 % (39.0-53.0); HGB 15.6 gm/dL (13.0-17.5); Lymphocytes # (A) 1.3 k/uL (1.0-4.8); Lymphocytes % (A) 10 %; MCH 29.8 pg (25.0-35.0); MCHC 32.1 g/dL (31.0-37.0); MCV 92.8 fL (80.0-100.0); Mean Platelet Volume 7.2; Monocytes # (A) 0.7 k/uL (0-1.0); Monocytes % (A) 5 %; Neutrophils # (A) 11.1 k/uL (1.3-7.7); Neutrophils % (A) 83 %; Platelet Count 198 k/uL (150-450); RBC 5.23 m/uL (4.30-5.90); RDW 16.6 % (11.5-15.5); WBC 13.4 k/uL (3.8-10.6)
[2019-10-28] MEDS ORDERED: MENTHOL (NICE) LOZENGE MUCOUS MEM PRN (06:00)
[2019-10-28 06:06] LABS: African American GFR (CKD) >90 (>60 ml/min/1.73 sqM); Anion Gap 11 mmol/L; Blood Urea Nitrogen 34 mg/dL (9-20); Calcium 8.7 mg/dL (8.4-10.2); Carbon Dioxide 26 mmol/L (22-30); Chloride 95 mmol/L (98-107); Glucose 73 mg/dL (74-99); Non-African American GFR(CKD) >90 (>60 ml/min/1.73 sqM); Potassium 4.3 mmol/L (3.5-5.1); Sodium 132 mmol/L (137-145)
[2019-10-28 06:20] LABS: Glucose,Whole Blood 77 mg/dL (75-99)
[2019-10-28] MEDS: INSULIN ASPART (NovoLOG) 100 UNIT/ML VIAL SQ SCH ×4 (06:21→22:08)
[2019-10-28] MEDS: FUROSEMIDE 40 MG TAB PO SCH ×2 (07:42→15:55)
[2019-10-28] MEDS: CLOPIDOGREL 75 MG TAB PO SCH (07:42)
[2019-10-28] MEDS: CYANOCOBALAMIN 500 MCG TAB PO SCH (07:42)
[2019-10-28] MEDS: METOPROLOL TARTRATE 50 MG TAB PO SCH ×2 (07:42→19:59)
[2019-10-28] MEDS: ASPIRIN 81 MG PO SCH (07:42)
[2019-10-28] MEDS: ISOSORBIDE MONONITRATE ER 60 MG TAB.ER.24H PO SCH ×2 (07:42→19:59)
[2019-10-28] MEDS: INSULIN DETEMIR (LEVEMIR) 100 UNIT/ML SYR SQ SCH ×2 (07:42→22:09)
[2019-10-28] MEDS: PANTOPRAZOLE 40 MG/10 ML VIAL IVP SCH ×2 (07:43→19:59)
[2019-10-28] MEDS: NICOTINE 21MG/24HR PATCH TRANSDERM SCH (07:43)
[2019-10-28] MEDS: CHOLECALCIFEROL 1,000 UNIT TAB PO SCH (07:43)
[2019-10-28] MEDS: predniSONE 20 MG TAB PO SCH (07:43)
[2019-10-28] MEDS: LISINOPRIL 2.5 MG TAB PO SCH (07:43)
[2019-10-28] MEDS: DOCUSATE ORAL SOLN 100 MG/10 ML CUP PO SCH ×2 (07:51→22:09)
[2019-10-28] MEDS: CLOTRIMAZOLE 1% CREAM 15 GM TUBE TOPICAL SCH ×2 (07:51→22:09)
[2019-10-28] MEDS: SYMBICORT 160-4.5 MCG INHALER INHALATION SCH ×2 (08:34→21:15)
--- NOTE | 2019-10-28 09:47 | P.PN ---
Subjective Progress Note Date: 10/28/19 Principal diagnosis: acute hypoxic and hypercapnic respiratory failure, multifactorial This is a 58-year-old white male, familiar to my service, known history of severe COPD, saw the patient for the first time on 07/03/2017, and I saw him back then mostly for an acute exacerbation of COPD. Patient was treated mostly with bronchodilators, antibiotics, steroids, and he was discharged home. Since then I have seen the patient on outpatient basis, and the last evaluation was via p amalia visit/telemedicine about 2 weeks ago. Patient had mostly symptoms of COPD exacerbation, treated with prednisone and doxycycline and advised to continue his bronchodilators. He was also advised to stop smoking. At any rate on 10/16/19, patient presented to the emergency room with chest pain consistent with acute coronary syndrome. He was seen by cardiology on consultation, and the patient had a previous stenting of the left circumflex coronary artery. Patient was treated with aspirin, heparin, nitroglycerin, and he underwent cardiac catheterization by Dr. Camilo. This was done on 10/18, and the patient underwent stenting of the first obtuse marginal branch of the left circumflex. This was successful, patient was placed on dual antiplatelet therapy, and advised to have aggressive cholesterol control. Last night, the patient developed worsening pulmonary status, he was noted to have profound shortness of breath, and he became obtunded with significant hypercapnia and hypoxia. Tried on BiPAP, and apparently his ABG was getting worse. Hence I was notified about this patient, and I recommended immediate transfer to the intensive care unit and intubation. Patient was intubated, and I was asked to see him on consultation. ABG before intubation showed a pO2 of 84, pCO2 of 120 and pH of 7.16. This morning ABG showed a pO2 of 53 pCO2 of 63 and pH of 7.40. Hence his FiO2 was increased from 60% to 70%, and his PEEP was increased to 8. Patient is now on mechanical ventilation, and his assist-control rate is 28, tidal volume is 500, FiO2 is 70%, and PEEP is 8. Chest x-ray showed evidence of interstitial edema, hence I recommended Lasix 40 mg IV push 1. And I cut down his IV fluid to KVO. Patient is on propofol at 60 mcg/kg/m, he was on norepinephrine which has been discontinued after the patient responded to fluid boluses last night. Patient was reevaluated today on 10/21/19, patient remains in the intensive care unit, intubated, mechanically ventilated. He is on assist control rate of 28 tidal volume is 500 FiO2 is 60% and PEEP was 8 however I increased the PEEP up to 10. Patient remains on propofol at 45 mcg/kg/m, not requiring norepinephrine today, his IV fluid is 0.9 at 20 mL per hour. Patient's ABG showed a pO2 of 65 pCO2 of 55 pH of 7.43. Patient had low-grade fever overnight, he is in sinus rhythm rate of 98. Sputum Cultures are nondiagnostic so far. Basic metabolic profile showed a low sodium of 126, could very well be related to diuresis yesterday, hence we'll restart the patient on 0.9 normal saline at 75 mL per hour today. Patient is in definite negative fluid balance. Echocardiogram was ordered today to assess his LV function. Chest x-ray showed mostly subsegmental basilar atelectasis, improved compared to the chest x-ray done yesterday Patient was reevaluated today on 10/22/19, patient remains in the ICU, intubated, mechanically ventilated, and his ABG remains marginal with a pO2 of 64 pCO2 of 55 and pH of 7.43. Patient is on assist control mode of mechanical ventilation rate of 28 tidal volume is 500 FiO2 is 60% and I cut it down to 55% and PEEP is at 10. Patient remains on propofol at 25 mcg/kg/m, he is off norepinephrine, IV fluid at 75 mL per hour. His urine output is over 100 mL per hour. Patient is in slightly positive fluid balance. He is on enteral feeding, and it is at goal. Chest x-ray showed minimal atelectasis and interstitial edema at the bases. Hence cut down his IV fluid to KVO, did not recommend any diuretics at this point yet. Patient had a low-grade fever last night and this morning with a temp of 99.9. WBC count is improving. Sodium is a bit low at 126. Sputum cultures are pending. In the meantime the patient remains on Zosyn. Reevaluated today on 10/23/19, patient remains intubated and mechanically ventilated. His ventilator settings are assist control rate of 28 tidal volume is 500 FiO2 is 55% and PEEP is at 10. ABG remains marginal with a pO2 of 67 pCO2 of 55 pH of 7.40. Patient is on propofol at 60 mcg/kg/m. He is on enteral feeding but presently on hold because of intermittent nausea hence I recommended Reglan and recommended a flat plate of the abdomen. Patient is arousable with lower dose of propofol, and he follows simple instructions. Chest x-ray showed increased infiltrate or atelectasis in the right lower lobe, otherwise no major change on the chest x-ray. His labs were reviewed, sodium is a bit better with sodium of 129 today. Patient remains with good urine output over 100 mL per hour. Overall not much of a change except for maybe a slight improvement in his ABG, but based on the ABG is not ready for weaning.. Patient remains on r elatively high FiO2 and high PEEP. Reevaluated today on 10/24/19, patient remains in the ICU, intubated and mechanically ventilated. His ventilator settings are assist control rate of 28 tidal volume is 500 FiO2 is 55% PEEP is 10. Today I cut down his FiO2 to 50%. His ABG showed a pO2 of 71 pCO2 of 49 pH of 7.43. Patient remains on propofol at 65 mcg/kg/m, he is hemodynamically stable, not requiring any pressors, remains on Zosyn for presumptive right lower lobe pneumonia/infiltrate. Patient is having some purulent secretions from the endotracheal tube, and they seem to be ferguson and yellow. Labs showed low sodium of 130 otherwise the labs are unremarkable bicarb is 32. WBC count is 7.6 hemoglobin is 14.3. Patient remains on GI and DVT prophylaxis, antibiotics, and on enteral feeding. Based on his ABG, the patient is not ready for any form of weaning. Reevaluated today on 10/25/19, remains in the ICU, intubated and mechanically ventilated. Patient is on assist control rate of 28 tidal volume is 500 FiO2 is 50% PEEP is 10. His pO2 was noted to be 68, pCO2 of 47 pH of 7.41. I did cut down the PEEP to 8. He remains on propofol at 75 mcg/kg/m, and his IV fluid is at KVO however I increased the fluids to 50 mL per hour. Patient is not requiring any pressors. Chest x-ray is showing improvement in his right lower lobe atelectasis/infiltrates. No evidence of congestive heart failure. Patient remains on enteral feeding. He is arousable in spite of being on high dose of propofol, and he follows simple instructions. Sodium is a bit low at 129 renal functioning is normal. CBC is normal. On 10/27/2019 patient seen in follow-up in the intensive care unit, yesterday we successfully weaned and extubated him from the mechanical ventilator. Patient did not use BiPAP support overnight, he states he cannot use BiPAP. Is currently on 6 L of oxygen, doing well, no worsening dyspnea, his O2 saturation is 94%, hemodynamically patient is stable, he is afebrile, current IV is 0.9 normal saline at 60 ML per hour, no other drips, today's chest x-ray has been reviewed showing basilar atelectasis. She remains in sinus rhythm with a controlled rate. patient is afebrile, he remains on empiric antibiotics in the form of Zosyn, and sputum culture blood cultures were negative to date. we will discontinue the IV Zosyn. She is tolerating oral intake, he has no specific com plaints, no complaints of chest pain. On 10/28/2019 patient seen in follow-up in the intensive care unit, he is awake and alert, in no acute distress, tolerating extubation well. Currently on 6 L o f oxygen his pulse ox is 93%, no worsening dyspnea, has been a bit hypertensive systolic in the 150s to 170s, and diastolic in the 70s to 90s. Patient is on oral Lasix of 40 mg twice daily. and he is maintaining negative fluid balance, he is on 2 L negative fluid balance over the last 24 hours.today's labs have been reviewed, showing white blood cell count of 13.4, hemoglobin of 15.6, sodium is 132, potassium is 4.3, chloride is 95, CO2 is 26, BUN is 34, creatinine 0.73.no new chest x-rays today, acute events overnight, his Zosyn has been discontinued yesterday, patient has been afebrile. Objective - Vital Signs Vital signs: Vital Signs Temp 97.3 F L 10/28/19 08:50 Pulse 83 10/28/19 08:50 Resp 20 10/28/19 08:50 BP 88/47 10/28/19 08:50 Pulse Ox 93 L 10/28/19 08:50 Intake & Output 10/27/19 10/28/19 10/28/19 18:59 06:59 18:59 Intake Total 565 100 360 Output Total 1363 1350 Balance -798 -1250 360 Weight 122.4 kg 121.1 kg Intake: IV 565 100 KVO 100 Normal Saline Pressure 15 Bag Piperacillin-Tazobactam 3 100 .375 gm In Sodium Chloride 0.9% 100 ml @ 25 mls/hr IVPB Q8HR [facility] Rx# :[id number] Sodium Chloride 0.9% 1, 450 000 ml @ 50 mls/hr IV . Q20H [facility] Rx#:[id number] Oral 360 Output: Urine 1363 1350 Other: Voiding Method Indwelling Catheter Urinal Urinal # Bowel Movements 1 ABP, PAP, CO, CI - Last Documented Arterial Blood Pressure 118/59 - Exam GENERAL EXAM: Alert, . Pleasant, 58-year-old white male, on 6 L of oxygen with a pulse ox of 93%, comfortable in no apparent distress. HEAD: Normocephalic/atraumatic. EYES: Normal reaction of pupils, equal size. Conjunctiva pink, sclera white. NOSE: Clear with pink turbinates. THROAT: No erythema or exudates. NECK: No masses, no JVD, no thyroid enlargement, no adenopathy. CHEST: No chest wall deformity. Symmetrical expansion. LUNGS: Equal air entry with no crackles, wheeze, rhonchi or dullness. CVS: Regular rate and rhythm, normal S1 and S2, no gallops, no murmurs, no rubs ABDOMEN: Soft, nontender. No hepatosplenomegaly, normal bowel sounds, no guarding or rigidity. EXTREMITIES: No clubbing, no edema, no cyanosis, 2+ pulses and upper and lower extremities. MUSCULOSKELETAL: Muscle strength and tone normal. SPINE: No scoliosis or deformity SKIN: No rashes CENTRAL NERVOUS SYSTEM: Alert and oriented -3. No focal deficits, tone is normal in all 4 extremities. PSYCHIATRIC: Alert and oriented -3. Appropriate affect. Intact judgment and insight. - Labs CBC & Chem 7: 10/28/19 04:36 10/28/19 04:36 Labs: Abnormal Lab Results - Last 24 Hours (Table) 10/27/19 10/27/19 10/27/19 Range/Units 11:48 16:34 18:12 WBC (3.8-10.6) k/uL RDW (11.5-15.5) % Neutrophils # (1.3-7.7) k/uL Sodium (137-145) mmol/L Chloride (98-107) mmol/L BUN (9-20) mg/dL Glucose (74-99) mg/dL POC Glucose (mg/dL) 102 H 130 H (75-99) mg/dL Urine Protein Trace H (Negative) Urine Blood Large H (Negative) Urine RBC >182 H (0-5) /hpf Urine WBC 62 H (0-5) /hpf Urine Mucus Rare H (None) /hpf Urine Yeast (Budding) Many H (None) /hpf 10/27/19 10/28/19 10/28/19 Range/Units 20:20 04:36 04:36 WBC 13.4 H (3.8-10.6) k/uL RDW 16.6 H (11.5-15.5) % Neutrophils # 11.1 H (1.3-7.7) k/uL Sodium 132 L (137-145) mmol/L Chloride 95 L (98-107) mmol/L BUN 34 H (9-20) mg/dL Glucose 73 L (74-99) mg/dL POC Glucose (mg/dL) 171 H (75-99) mg/dL Urine Protein (Negative) Urine Blood (Negative) Urine RBC (0-5) /hpf Urine WBC (0-5) /hpf Urine Mucus (None) /hpf Urine Yeast (Budding) (None) /hpf Microbiology - Last 24 Hours (Table) 10/27/19 18:12 Urine Culture - Preliminary Urine,Voided 10/27/19 12:00 Catheter Tip Culture - Preliminary Catheter Tip 10/27/19 12:15 Catheter Tip Culture - Preliminary Catheter Tip 10/21/19 15:20 Blood Culture - Final Blood No Growth after 144 hours Assessment and Plan Plan: assessment: #1. Acute hypoxemic and hypercapnic respiratory failure secondary to severe COPD exacerbation as well as acute on chronic diastolic congestive heart failure, requiring intubation and mechanical ventilation, patient was successfully weaned and extubated on 10/26/2019 #2. Acute non-ST segment elevated myocardial infarction with previous stenting on 518 of the right coronary artery and on 519 on the circumflex coronary artery #3. History of severe peripheral neuropathy #4. Prior history of myocardial infarction #5. Nicotine dependence syndrome #6. History of prostate cancer, status post radical prostatectomy, and 2001 #7. Hyperlipidemia #8. Pulmonary embolism #9. Sleep apnea syndrome, not currently using CPAP device #10. Type 2 diabetes mellitus #11. GERD/reflux #12. Benign essential hypertension #13. Hyponatremia Plan: Patient is doing well, maintaining negative fluid balance, he has been transitioned to oral Lasix, continue weaning FiO2, increase activity as tolerated, we discontinued his antibiotics yesterday, he has been afebrile, no worsening dyspnea, no significant cough or congestion. No complaints of chest pain, tolerating oral diet, no nausea vomiting or diarrhea. Patient is being transferred to selective care unit today. Weaning FiO2, and patient may possibl y be considered for discharge home tomorrow I performed a history & physical examination of the patient and discussed their management with my nurse practitioner, Galina Cui. I reviewed the nurse practitioner's note and agree with the documented findings and plan of care. Lung sounds are positive for diminished breath sounds. The findings and the impression was discussed with the patient. I attest to the documentation by the nurse practitioner. Time with Patient: Less than 30
[2019-10-28 12:03] LABS: Glucose,Whole Blood 158 mg/dL (75-99)
--- NOTE | 2019-10-28 12:04 | P.PN ---
Subjective Progress Note Date: 10/28/19 Principal diagnosis: coronary artery disease and status post PCI This is a very pleasant 58-year-old gentleman with coronary artery disease, hypertension, dyslipidemia, as well as chronic obstructive pulmonary disease who initially presented to the hospital with a chest discomfort and ruled in for acute non-ST patient myocardial infarction. Subsequently heart catheterization was performed and revealed severe 2 vessels coronary artery disease involving the RCA and LCx. The patient underwent successful stenting of both the RCA and LCx with an excellent angiographic results and without any complication. Subsequently the patient developed severe shortness of breath and subsequently he was diagnosed with severe COPD exacerbation and acute hypoxic respiratory failure require intubation and mechanical ventilation. The patient was seen this morning, October [id number]. At this point he denies any chest pain or chest discomfort. He stated that his shortness of breath is b oumou. He is hemodynamically stable. He continues to be on 6L oxygen. Objective - Vital Signs Vital signs: Vital Signs Temp 97.5 F L 10/28/19 11:49 Pulse 76 10/28/19 11:57 Resp 20 10/28/19 11:54 BP 110/64 10/28/19 11:49 Pulse Ox 96 10/28/19 11:49 Intake & Output 10/27/19 10/28/19 10/28/19 18:59 06:59 18:59 Intake Total 565 100 360 Output Total 1363 1350 400 Balance -798 -1250 -40 Weight 122.4 kg 121.1 kg Intake: IV 565 100 KVO 100 Normal Saline Pressure 15 Bag Piperacillin-Tazobactam 3 100 .375 gm In Sodium Chloride 0.9% 100 ml @ 25 mls/hr IVPB Q8HR [facility] Rx# :[id number] Sodium Chloride 0.9% 1, 450 000 ml @ 50 mls/hr IV . Q20H [facility] Rx#:[id number] Oral 360 Output: Urine 1363 1350 400 Other: Voiding Method Indwelling Catheter Urinal Urinal # Bowel Movements 1 1 ABP, PAP, CO, CI - Last Documented Arterial Blood Pressure 118/59 - Constitutional General appearance: Present: no acute distress - Respiratory Respiratory: bilateral: CTA - Cardiovascular Rhythm: regular Heart sounds: normal: S1, S2 - Labs CBC & Chem 7: 10/28/19 04:36 10/28/19 04:36 Labs: Abnormal Lab Results - Last 24 Hours (Table) 10/27/19 10/27/19 10/27/19 Range/Units 16:34 18:12 20:20 WBC (3.8-10.6) k/uL RDW (11.5-15.5) % Neutrophils # (1.3-7.7) k/uL Sodium (137-145) mmol/L Chloride (98-107) mmol/L BUN (9-20) mg/dL Glucose (74-99) mg/dL POC Glucose (mg/dL) 130 H 171 H (75-99) mg/dL Urine Protein Trace H (Negative) Urine Blood Large H (Negative) Urine RBC >182 H (0-5) /hpf Urine WBC 62 H (0-5) /hpf Urine Mucus Rare H (None) /hpf Urine Yeast (Budding) Many H (None) /hpf 10/28/19 10/28/19 Range/Units 04:36 04:36 WBC 13.4 H (3.8-10.6) k/uL RDW 16.6 H (11.5-15.5) % Neutrophils # 11.1 H (1.3-7.7) k/uL Sodium 132 L (137-145) mmol/L Chloride 95 L (98-107) mmol/L BUN 34 H (9-20) mg/dL Glucose 73 L (74-99) mg/dL POC Glucose (mg/dL) (75-99) mg/dL Urine Protein (Negative) Urine Blood (Negative) Urine RBC (0-5) /hpf Urine WBC (0-5) /hpf Urine Mucus (None) /hpf Urine Yeast (Budding) (None) /hpf Microbiology - Last 24 Hours (Table) 10/27/19 18:12 Urine Culture - Preliminary Urine,Voided 10/27/19 12:00 Catheter Tip Culture - Preliminary Catheter Tip 10/27/19 12:15 Catheter Tip Culture - Preliminary Catheter Tip 10/21/19 15:20 Blood Culture - Final Blood No Growth after 144 hours Assessment and Plan Assessment: assessment #1 acute non-ST deviation myocardial infarction #2 coronary artery disease and status post PCI of the RCA and LCx #3 history of pulmonary embolism #4 acute hypoxic respiratory failure #5 chronic obstructive pulmonary disease #6 multiple comorbid conditions Plan #1 continue the current medical regimen including dual antiplatelet therapy #2 follow up with the pt
[2019-10-28] MEDS: ATORVASTATIN 40 MG TAB PO SCH (12:23)
--- NOTE | 2019-10-28 16:43 | PN ---
PROGRESS NOTE DATE OF SERVICE: 10/28/2019 This 58-year-old gentleman who was admitted with acute vpf-OV-qyzxadc-elevation myocardial infarction also had PTCA. The patient subsequently developed bilateral possible acute pneumonia and the patient was intubated mechanically. The patient is extubated. The patient still has some hypoxia, on 6 L nasal cannula. Patient is being closely monitored. The patient is able to ambulate. The most recent chest x-ray did show bilateral lesions, right more than left. Cultures are negative so far. Past medical history reviewed. REVIEW OF SYSTEMS: CARDIOVASCULAR SYSTEM: No angina, palpitations. RESPIRATORY SYSTEM: As mentioned earlier. GI: As mentioned earlier. : No dysuria or retention. NERVOUS SYSTEM: No numbness, weakness. CURRENT MEDICATIONS: Reviewed. They include: 1. Tylenol. 2. Maalox. 3. DuoNeb q.i.d. and p.r.n. 4. Lipitor. 5. Symbicort. 6. Plavix. 7. Lotrimin. 8. Vitamin B12. 9. Lasix. 10.NovoLog. 11.Levemir. 12.Imdur. 13.Cephulac. 14.Zestril. 15.Lopressor. 16.Narcan. 17.Habitrol 14. 18.Protonix. 19.Prednisone taper. 20.Xarelto. PHYSICAL EXAMINATION: Patient is alert, oriented x2. Pulse is 94, blood pressure 105/74, respirations 16, temperature 98.1, pulse ox 94% on 5 L and 96% on 6 L. HEENT: Conjunctivae normal. NECK: No jugular venous distention. CARDIOVASCULAR SYSTEM: S1, S2 muffled. RESPIRATORY SYSTEM: Breath sounds diminished at the bases. Bilateral scattered rhonchi and crackles. ABDOMEN: Soft, obese, non-tender. LEGS: No edema. No swelling. NERVOUS SYSTEM: No focal deficit. LABS: Labs at this time show WBC 13.4, sodium 133, potassium 4.3, glucose 73. UA noted; mostly RBCs. ASSESSMENT: 1. Acute tme-PJ-aymegom-elevation myocardial infarction, status post percutaneous transluminal coronary angioplasty and stenting of the right coronary artery as well as secondary angiogram and stenting of the first obtuse marginal artery, present on admission. 2. Bilateral pneumonia, possibly hospital-acquired, possibly aspiration pneumonia, right more than left, with acute hypoxic hypercarbic respiratory failure, status post mechanical ventilation. 3. Change in mental status, acute metabolic encephalopathy, multifactorial. 4. Chronic obstructive pulmonary disease, acute exacerbation. 5. Obesity hypoventilation syndrome. 6. Chronic hypoxic respiratory failure possibly. 7. Hyponatremia. 8. History of nicotine dependence. 9. History of substance abuse with tetrahydrocannabinol. 10.Obesity with a body mass index of 37. 11.Diabetes mellitus, type 2, with diabetic peripheral neuropathy. 12.Hypertension. 13.Hyperlipidemia. 14.History of congestive heart failure. 15.History of chronic hypoxic respiratory failure; 2 to 5 L nasal cannula. 16.History of gastroesophageal reflux disease. 17.History of pulmonary embolism, on Xarelto 15 mg. 18.History of prostate cancer. 19.Hyponatremia. 20.History of methicillin-resistant Staphylococcus aeruginosa, vancomycin-resistant Enterococcus. 21.History of asthma, chronic obstructive pulmonary disease. 22.History of anxiety, depression. 23.FULL CODE. RECOMMENDATIONS AND DISCUSSION: I recommend to continue current medications, continue with the monitoring, symptomatic treatment. I would recommend continuing with the bronchodilators. Otherwise, taper the steroids. Incentive spirometry. Room-air pulse ox after ambulation. Arrange home oxygen possibly. Continue the rest of the medications. Prognosis guarded because of multiple complex medical issues. Further recommendations to follow. Closely follow with multiple consultants. TEMI / WILLIS: [id number] /
[2019-10-28 16:57] LABS: Glucose,Whole Blood 173 mg/dL (75-99)
[2019-10-28] MEDS: RIVAROXABAN 15 MG TAB PO SCH (17:22)
[2019-10-28 20:19] LABS: Glucose,Whole Blood 196 mg/dL (75-99)
[2019-10-29] MEDS: INSULIN ASPART (NovoLOG) 100 UNIT/ML VIAL SQ SCH ×2 (06:10→12:08)
[2019-10-29 06:11] LABS: Glucose,Whole Blood 117 mg/dL (75-99)
[2019-10-29 06:38] LABS: Anisocytosis Slight; Basophils % (A) 0 %; Eosinophils # (A) 0.1 k/uL (0-0.7); Eosinophils % (A) 1 %; HCT 48.4 % (39.0-53.0); HGB 15.3 gm/dL (13.0-17.5); Lymphocytes % (A) 17 %; MCH 29.4 pg (25.0-35.0); MCHC 31.6 g/dL (31.0-37.0); MCV 92.9 fL (80.0-100.0); Mean Platelet Volume 7.3; Monocytes # (A) 0.7 k/uL (0-1.0); Monocytes % (A) 6 %; Neutrophils % (A) 76 %; Platelet Count 190 k/uL (150-450); RBC 5.21 m/uL (4.30-5.90); RDW 16.7 % (11.5-15.5); WBC 11.9 k/uL (3.8-10.6)
[2019-10-29 06:51] LABS: African American GFR (CKD) >90 (>60 ml/min/1.73 sqM); Anion Gap 10 mmol/L; Blood Urea Nitrogen 39 mg/dL (9-20); Calcium 8.8 mg/dL (8.4-10.2); Carbon Dioxide 26 mmol/L (22-30); Chloride 95 mmol/L (98-107); Glucose 100 mg/dL (74-99); Non-African American GFR(CKD) >90 (>60 ml/min/1.73 sqM); Potassium 3.8 mmol/L (3.5-5.1); Sodium 131 mmol/L (137-145)
[2019-10-29] MEDS: CLOPIDOGREL 75 MG TAB PO SCH (08:29)
[2019-10-29] MEDS: ASPIRIN 81 MG PO SCH (08:30)
[2019-10-29] MEDS: NICOTINE 21MG/24HR PATCH TRANSDERM SCH (08:30)
[2019-10-29] MEDS: ATORVASTATIN 40 MG TAB PO SCH (08:30)
[2019-10-29] MEDS: METOPROLOL TARTRATE 50 MG TAB PO SCH (08:30)
[2019-10-29] MEDS: CHOLECALCIFEROL 1,000 UNIT TAB PO SCH (08:30)
[2019-10-29] MEDS: CYANOCOBALAMIN 500 MCG TAB PO SCH (08:30)
[2019-10-29] MEDS: FUROSEMIDE 40 MG TAB PO SCH (08:30)
[2019-10-29] MEDS: predniSONE 20 MG TAB PO SCH (08:30)
[2019-10-29] MEDS: INSULIN DETEMIR (LEVEMIR) 100 UNIT/ML SYR SQ SCH (08:32)
[2019-10-29] MEDS: PANTOPRAZOLE 40 MG/10 ML VIAL IVP SCH (08:32)
[2019-10-29] MEDS: DOCUSATE ORAL SOLN 100 MG/10 ML CUP PO SCH (08:37)
[2019-10-29] MEDS: SYMBICORT 160-4.5 MCG INHALER INHALATION SCH (08:44)
[2019-10-29] MEDS: IPRATROPIUM-ALBUTEROL 3 ML NEB INHALATION SCH ×2 (08:44→11:13)
[2019-10-29 11:29] VITALS: BP 107/62; PULSE 95; RESP 18; TEMP 97.8
[2019-10-29 11:39] LABS: Glucose,Whole Blood 178 mg/dL (75-99)
[2019-10-29] MEDS: LISINOPRIL 2.5 MG TAB PO SCH (11:47)
[2019-10-29] MEDS: CLOTRIMAZOLE 1% CREAM 15 GM TUBE TOPICAL SCH (11:47)
[2019-10-29] MEDS: ISOSORBIDE MONONITRATE ER 60 MG TAB.ER.24H PO SCH (11:47)
--- NOTE | 2019-10-29 14:03 | P.DS ---
Providers Date of admission: 10/16/19 14:02 Expected date of discharge: 10/29/19 Attending physician: Gabriel Almodovar MD Consults: 10/16/19 14:02 Consult Physician Urgent Consulting Provider: Bernardino Muir Consult Reason/Comments: acs Do you want consulting provider notified?: Yes 10/18/19 11:07 Consult Physician Routine Consulting Provider: [facility] Consult Reason/Comments: Post Interventional patient Do you want consulting provider notified?: Already Contacted 10/19/19 11:29 Consult Physician Routine Consulting Provider: [facility] Consult Reason/Comments: Post Interventional patient Do you want consulting provider notified?: Already Contacted 10/19/19 18:50 Consult Physician Urgent Consulting Provider: Litzy Sidhu Consult Reason/Comments: shortness of breath/bipap Do you want consulting provider notified?: Yes 10/19/19 19:59 Consult Physician Stat Consulting Provider: Litzy Sidhu Consult Reason/Comments: ICU transfer Do you want consulting provider notified?: Already Contacted Primary care physician: [facility] Hospital Course: Final Diagnosis Acute non-ST segment elevation myocardial infarction, status post PTCA and stenting of the right coronary artery as well as secondary angiogram and stenting of the first obtuse marginal artery, present on admission Bilateral pneumonia, possibly hospital-acquired, possible aspiration pneumonia, right more than left, with acute hypercarbic respiratory failure, status post mechanical ventilation Change in mental status, acute metabolic encephalopathy, multifactorial COPD, acute exacerbation Obesity hypoventilation syndrome Chronic hypoxic respiratory failure possibly Hyponatremia History of nicotine dependence History of substance abuse with THC use Obesity with a BMI of 37 Diabetes mellitus type 2 with diabetic peripheral neuropathy Hypertension Hyperlipidemia History of CHF History of chronic hypoxic respiratory failure 2-5 L via nasal cannula History of GERD History of pulmonary embolism, on Xarelto History of prostate cancer hyponatremia History of MRSA and VRE History of asthma, COPD History of anxiety, depression Full code Discharge disposition Patient is being discharged in a stable condition with guarded prognosis to [facility] for continued PT/OT therapy. Patient will follow-up with JOHN Paez in the outpatient setting upon discharge. Patient will also follow-up with Dr. Muir and Dr. Dolan in the outpatient setting as scheduled. Patient will continue prednisone taper upon discharge. Total time taken is greater than 35 minutes. History of present illness This is a 58-year-old male who was recently admitted with acute non-ST segment elevation myocardial infarction also had PTCA and was being closely monitored. Patient also subsequently developed bilateral possible acute pneumonia and patient was mechanically intubated and in the ICU for close monitoring. Patient was then recently extubated and still experiencing some hypoxia although is currently on 3-4 L nasal cannula at this time. Patient states he does wear oxygen at home. Case management and social work were following for possible ECF placement although family like him to return home as she will take care of him in the outpatient setting. Will follow-up with pulmonary along with cardiology in the outpatient setting as discussed and scheduled. Currently no reports of chest pain, shortness of breath, or palpitations. Patient is afebrile. No reports of nausea or vomiting and patient is tolerating diet. Patient will be going home today. Guarded prognosis. On exam vital signs are stable. Temp is 97.8F, pulse is 95, respirations are 18, blood pressure is 107/62, oxygen saturation is 93% on 4 L via nasal cannula. Cardio S1, S2 are muffled. Respiratory system shows diminished breath sounds at the bases with a few scattered rhonchi noted. Abdomen is soft and obese, and nontender. Nervous system shows no focal deficits. Please refer to medication reconciliation sheet for a list of medications. Patient Condition at Discharge: Stable Plan - Discharge Summary Discharge Rx Participant: Yes New Discharge Prescriptions: New Rivaroxaban [Xarelto Starter Pack] 0 mg PO DIRECTED 30 Days #1 pack Aspirin 81 mg PO DAILY 30 Days #30 chew Atorvastatin [Lipitor] 40 mg PO DAILY 30 Days #30 tab Metoprolol Tartrate [Lopressor] 50 mg PO BID 30 Days #60 tab Clotrimazole Cream [Lotrimin Cream] 1 applic TOPICAL BID 30 Days #1 applic predniSONE 10 mg PO DIRECTED #30 tab Acetaminophen Tab [Tylenol] 650 mg PO Q6HR PRN tab PRN Reason: Fever And/ Or Pain Continue Omeprazole [PriLOSEC] 20 mg PO AC-BID Nitroglycerin Sl Tabs [Nitrostat] 0.4 mg SUBLINGUAL Q5M PRN PRN Reason: Chest Pain Budesonide/Formoterol Fumarate [Symbicort 160-4.5 Mcg Inhaler] 2 puff INHALATION RT-BID Cyanocobalamin (Vitamin B-12) [Vitamin B-12] 1,000 mcg PO DAILY Loratadine 10 mg PO DAILY Tiotropium 18 Mcg/Puff [Spiriva] 1 cap INHALATION RT-DAILY Cholecalciferol [Vitamin D3 (25 Mcg = 1000 Iu)] 1,000 unit PO DAILY Furosemide [Lasix] 40 mg PO BID #60 tab Clopidogrel [Plavix] 75 mg PO DAILY #30 tablet Rivaroxaban [Xarelto] 15 mg PO DAILY Insulin Glargine,Hum.rec.anlog [Lantus Solostar] 10 unit SQ DAILY Lisinopril [Zestril] 2.5 mg PO DAILY #30 tab Vascepa 1gm 2 gm PO DAILY Isosorbide Mononitrate ER [Imdur] 60 mg PO BID #60 tab Albuterol Inhaler [Ventolin Hfa Inhaler] 2 puff INHALATION RT-QID PRN PRN Reason: Shortness Of Breath Nicotine 21Mg/24Hr Patch [Habitrol] 1 each TRANSDERM DAILY Discontinued Metoprolol Succinate [Toprol XL] 100 mg PO DAILY Discharge Medication List Budesonide/Formoterol Fumarate [Symbicort 160-4.5 Mcg Inhaler] 2 puff INHALATION RT-BID 02/10/15 [History] Nitroglycerin Sl Tabs [Nitrostat] 0.4 mg SUBLINGUAL Q5M PRN 02/10/15 [History] Omeprazole [PriLOSEC] 20 mg PO AC-BID 02/10/15 [History] Cholecalciferol [Vitamin D3 (25 Mcg = 1000 Iu)] 1,000 unit PO DAILY 03/02/19 [History] Cyanocobalamin (Vitamin B-12) [Vitamin B-12] 1,000 mcg PO DAILY 03/02/19 [History] Loratadine 10 mg PO DAILY 03/02/19 [History] Tiotropium 18 Mcg/Puff [Spiriva] 1 cap INHALATION RT-DAILY 03/02/19 [History] Clopidogrel [Plavix] 75 mg PO DAILY #30 tablet 03/04/19 [Rx] Furosemide [Lasix] 40 mg PO BID #60 tab 03/04/19 [Rx] Insulin Glargine,Hum.rec.anlog [Lantus Solostar] 10 unit SQ DAILY 05/30/19 [ History] Rivaroxaban [Xarelto] 15 mg PO DAILY 05/30/19 [History] Lisinopril [Zestril] 2.5 mg PO DAILY #30 tab 06/01/19 [Rx] Isosorbide Mononitrate ER [Imdur] 60 mg PO BID #60 tab 08/29/19 [Rx] Vascepa 1gm 2 gm PO DAILY 08/29/19 [History] Albuterol Inhaler [Ventolin Hfa Inhaler] 2 puff INHALATION RT-QID PRN 10/16/19 [History] Nicotine 21Mg/24Hr Patch [Habitrol] 1 each TRANSDERM DAILY 10/16/19 [History] Rivaroxaban [Xarelto Starter Pack] 0 mg PO DIRECTED 30 Days #1 pack 10/26/19 [Rx] Acetaminophen Tab [Tylenol] 650 mg PO Q6HR PRN tab 10/29/19 [Rx] Aspirin 81 mg PO DAILY 30 Days #30 chew 10/29/19 [Rx] Atorvastatin [Lipitor] 40 mg PO DAILY 30 Days #30 tab 10/29/19 [Rx] Clotrimazole Cream [Lotrimin Cream] 1 applic TOPICAL BID 30 Days #1 applic 10/29/19 [Rx] Metoprolol Tartrate [Lopressor] 50 mg PO BID 30 Days #60 tab 10/29/19 [Rx] predniSONE 10 mg PO DIRECTED #30 tab 10/29/19 [Rx] Follow up Appointment(s)/Referral(s): Bernardino Muir MD [STAFF PHYSICIAN] - 11/05/19 3:00 pm Jorge Luis Dolan DO [Doctor of Osteopathic Medicine] - 2 Weeks (Please call for appointment) Amanda Mcneal PAC [REFERRING] - 11/02/19 1:00 pm (Contact office to verify appointment and provide email address Video appointment) Ambulatory/Diagnostic Orders: Basic Metabolic Panel [LAB.AMB] Time Frame: 3 Days, Location: None Selected Complete Blood Count w/diff [LAB.AMB] Time Frame: 3 Days, Location: None Selected Patient Instructions/Handouts: *Surgery [facility] - After Heart Catheterization - Pocket Marker Instructions, How to Stop Smoking (DC), Heart Healthy Diet (DC), Acute Coronary Syndrome (GEN), COPD (Chronic Obstructive Pulmonary Disease) (DC), Surgical Site Infections (GEN) Activity/Diet/Wound Care/Special Instructions: Activity Limited until follow-up Follow-up with primary care provider upon discharge Continue current diet Repeat labs in 2-3 days Follow-up with cardiology in the outpatient setting Discharge Disposition: HOME SELF-CARE
--- NOTE | 2019-10-29 14:57 | P.PN ---
Subjective Progress Note Date: 10/29/19 Principal diagnosis: acute hypoxic and hypercapnic respiratory failure, multifactorial This is a 58-year-old white male, familiar to my service, known history of severe COPD, saw the patient for the first time on 07/03/2017, and I saw him back then mostly for an acute exacerbation of COPD. Patient was treated mostly with bronchodilators, antibiotics, steroids, and he was discharged home. Since then I have seen the patient on outpatient basis, and the last evaluation was via p amalia visit/telemedicine about 2 weeks ago. Patient had mostly symptoms of COPD exacerbation, treated with prednisone and doxycycline and advised to continue his bronchodilators. He was also advised to stop smoking. At any rate on 10/16/19, patient presented to the emergency room with chest pain consistent with acute coronary syndrome. He was seen by cardiology on consultation, and the patient had a previous stenting of the left circumflex coronary artery. Patient was treated with aspirin, heparin, nitroglycerin, and he underwent cardiac catheterization by Dr. Camilo. This was done on 10/18, and the patient underwent stenting of the first obtuse marginal branch of the left circumflex. This was successful, patient was placed on dual antiplatelet therapy, and advised to have aggressive cholesterol control. Last night, the patient developed worsening pulmonary status, he was noted to have profound shortness of breath, and he became obtunded with significant hypercapnia and hypoxia. Tried on BiPAP, and apparently his ABG was getting worse. Hence I was notified about this patient, and I recommended immediate transfer to the intensive care unit and intubation. Patient was intubated, and I was asked to see him on consultation. ABG before intubation showed a pO2 of 84, pCO2 of 120 and pH of 7.16. This morning ABG showed a pO2 of 53 pCO2 of 63 and pH of 7.40. Hence his FiO2 was increased from 60% to 70%, and his PEEP was increased to 8. Patient is now on mechanical ventilation, and his assist-control rate is 28, tidal volume is 500, FiO2 is 70%, and PEEP is 8. Chest x-ray showed evidence of interstitial edema, hence I recommended Lasix 40 mg IV push 1. And I cut down his IV fluid to KVO. Patient is on propofol at 60 mcg/kg/m, he was on norepinephrine which has been discontinued after the patient responded to fluid boluses last night. Patient was reevaluated today on 10/21/19, patient remains in the intensive care unit, intubated, mechanically ventilated. He is on assist control rate of 28 tidal volume is 500 FiO2 is 60% and PEEP was 8 however I increased the PEEP up to 10. Patient remains on propofol at 45 mcg/kg/m, not requiring norepinephrine today, his IV fluid is 0.9 at 20 mL per hour. Patient's ABG showed a pO2 of 65 pCO2 of 55 pH of 7.43. Patient had low-grade fever overnight, he is in sinus rhythm rate of 98. Sputum Cultures are nondiagnostic so far. Basic metabolic profile showed a low sodium of 126, could very well be related to diuresis yesterday, hence we'll restart the patient on 0.9 normal saline at 75 mL per hour today. Patient is in definite negative fluid balance. Echocardiogram was ordered today to assess his LV function. Chest x-ray showed mostly subsegmental basilar atelectasis, improved compared to the chest x-ray done yesterday Patient was reevaluated today on 10/22/19, patient remains in the ICU, intubated, mechanically ventilated, and his ABG remains marginal with a pO2 of 64 pCO2 of 55 and pH of 7.43. Patient is on assist control mode of mechanical ventilation rate of 28 tidal volume is 500 FiO2 is 60% and I cut it down to 55% and PEEP is at 10. Patient remains on propofol at 25 mcg/kg/m, he is off norepinephrine, IV fluid at 75 mL per hour. His urine output is over 100 mL per hour. Patient is in slightly positive fluid balance. He is on enteral feeding, and it is at goal. Chest x-ray showed minimal atelectasis and interstitial edema at the bases. Hence cut down his IV fluid to KVO, did not recommend any diuretics at this point yet. Patient had a low-grade fever last night and this morning with a temp of 99.9. WBC count is improving. Sodium is a bit low at 126. Sputum cultures are pending. In the meantime the patient remains on Zosyn. Reevaluated today on 10/23/19, patient remains intubated and mechanically ventilated. His ventilator settings are assist control rate of 28 tidal volume is 500 FiO2 is 55% and PEEP is at 10. ABG remains marginal with a pO2 of 67 pCO2 of 55 pH of 7.40. Patient is on propofol at 60 mcg/kg/m. He is on enteral feeding but presently on hold because of intermittent nausea hence I recommended Reglan and recommended a flat plate of the abdomen. Patient is arousable with lower dose of propofol, and he follows simple instructions. Chest x-ray showed increased infiltrate or atelectasis in the right lower lobe, otherwise no major change on the chest x-ray. His labs were reviewed, sodium is a bit better with sodium of 129 today. Patient remains with good urine output over 100 mL per hour. Overall not much of a change except for maybe a slight improvement in his ABG, but based on the ABG is not ready for weaning.. Patient remains on r elatively high FiO2 and high PEEP. Reevaluated today on 10/24/19, patient remains in the ICU, intubated and mechanically ventilated. His ventilator settings are assist control rate of 28 tidal volume is 500 FiO2 is 55% PEEP is 10. Today I cut down his FiO2 to 50%. His ABG showed a pO2 of 71 pCO2 of 49 pH of 7.43. Patient remains on propofol at 65 mcg/kg/m, he is hemodynamically stable, not requiring any pressors, remains on Zosyn for presumptive right lower lobe pneumonia/infiltrate. Patient is having some purulent secretions from the endotracheal tube, and they seem to be ferguson and yellow. Labs showed low sodium of 130 otherwise the labs are unremarkable bicarb is 32. WBC count is 7.6 hemoglobin is 14.3. Patient remains on GI and DVT prophylaxis, antibiotics, and on enteral feeding. Based on his ABG, the patient is not ready for any form of weaning. Reevaluated today on 10/25/19, remains in the ICU, intubated and mechanically ventilated. Patient is on assist control rate of 28 tidal volume is 500 FiO2 is 50% PEEP is 10. His pO2 was noted to be 68, pCO2 of 47 pH of 7.41. I did cut down the PEEP to 8. He remains on propofol at 75 mcg/kg/m, and his IV fluid is at KVO however I increased the fluids to 50 mL per hour. Patient is not requiring any pressors. Chest x-ray is showing improvement in his right lower lobe atelectasis/infiltrates. No evidence of congestive heart failure. Patient remains on enteral feeding. He is arousable in spite of being on high dose of propofol, and he follows simple instructions. Sodium is a bit low at 129 renal functioning is normal. CBC is normal. On 10/27/2019 patient seen in follow-up in the intensive care unit, yesterday we successfully weaned and extubated him from the mechanical ventilator. Patient did not use BiPAP support overnight, he states he cannot use BiPAP. Is currently on 6 L of oxygen, doing well, no worsening dyspnea, his O2 saturation is 94%, hemodynamically patient is stable, he is afebrile, current IV is 0.9 normal saline at 60 ML per hour, no other drips, today's chest x-ray has been reviewed showing basilar atelectasis. She remains in sinus rhythm with a controlled rate. patient is afebrile, he remains on empiric antibiotics in the form of Zosyn, and sputum culture blood cultures were negative to date. we will discontinue the IV Zosyn. She is tolerating oral intake, he has no specific com plaints, no complaints of chest pain. On 10/28/2019 patient seen in follow-up in the intensive care unit, he is awake and alert, in no acute distress, tolerating extubation well. Currently on 6 L o f oxygen his pulse ox is 93%, no worsening dyspnea, has been a bit hypertensive systolic in the 150s to 170s, and diastolic in the 70s to 90s. Patient is on oral Lasix of 40 mg twice daily. and he is maintaining negative fluid balance, he is on 2 L negative fluid balance over the last 24 hours.today's labs have been reviewed, showing white blood cell count of 13.4, hemoglobin of 15.6, sodium is 132, potassium is 4.3, chloride is 95, CO2 is 26, BUN is 34, creatinine 0.73.no new chest x-rays today, acute events overnight, his Zosyn has been discontinued yesterday, patient has been afebrile. On 10/29/2019 patient seen in follow-up on selective care unit, currently his FiO2 is down to 4 L and his pulse ox is 93%, no acute events overnight, his breathing is significantly improved since admission, lung sounds reveal some limited crackles at the left base, no significant rhonchi or wheezing, no cough. No fever or chills. culture data remains negative. Currently on oral diuretics, and maintaining negative fluid balance, weight is improving, Mancilla catheter has been discontinued, and patient has been avoiding in the urinal. He is sitting up in a chair, he is a very full address, he is anticipated to be discharged home this afternoon. Objective - Vital Signs Vital signs: Vital Signs Temp 97.8 F 10/29/19 11:28 Pulse 95 10/29/19 11:28 Resp 18 10/29/19 11:28 BP 107/62 10/29/19 11:28 Pulse Ox 93 L 10/29/19 11:28 Intake & Output 10/28/19 10/29/19 10/29/19 18:59 06:59 18:59 Intake Total 840 472 Output Total 1000 Balance -160 472 Weight 113.4 kg Intake: Oral 840 472 Output: Urine 1000 Other: Voiding Method Urinal Urinal Toilet Urinal # Voids 2 # Bowel Movements 1 ABP, PAP, CO, CI - Last Documented Arterial Blood Pressure 118/59 - Exam GENERAL EXAM: Alert, . Pleasant, 58-year-old white male, on 4 of oxygen with a pulse ox of 93%, comfortable in no apparent distress. HEAD: Normocephalic/atraumatic. EYES: Normal reaction of pupils, equal size. Conjunctiva pink, sclera white. NOSE: Clear with pink turbinates. THROAT: No erythema or exudates. NECK: No masses, no JVD, no thyroid enlargement, no adenopathy. CHEST: No chest wall deformity. Symmetrical expansion. LUNGS: Equal air entry with no crackles, wheeze, rhonchi or dullness. CVS: Regular rate and rhythm, normal S1 and S2, no gallops, no murmurs, no rubs ABDOMEN: Soft, nontender. No hepatosplenomegaly, normal bowel sounds, no guarding or rigidity. EXTREMITIES: No clubbing, no edema, no cyanosis, 2+ pulses and upper and lower extremities. MUSCULOSKELETAL: Muscle strength and tone normal. SPINE: No scoliosis or deformity SKIN: No rashes CENTRAL NERVOUS SYSTEM: Alert and oriented -3. No focal deficits, tone is normal in all 4 extremities. PSYCHIATRIC: Alert and oriented -3. Appropriate affect. Intact judgment and insight. - Labs CBC & Chem 7: 10/29/19 05:41 10/29/19 05:41 Labs: Abnormal Lab Results - Last 24 Hours (Table) 10/28/19 10/28/19 10/29/19 Range/Units 16:45 20:17 05:41 WBC 11.9 H (3.8-10.6) k/uL RDW 16.7 H (11.5-15.5) % Neutrophils # 9.0 H (1.3-7.7) k/uL Sodium (137-145) mmol/L Chloride (98-107) mmol/L BUN (9-20) mg/dL Glucose (74-99) mg/dL POC Glucose (mg/dL) 173 H 196 H (75-99) mg/dL 10/29/19 10/29/19 10/29/19 Range/Units 05:41 06:09 11:38 WBC (3.8-10.6) k/uL RDW (11.5-15.5) % Neutrophils # (1.3-7.7) k/uL Sodium 131 L (137-145) mmol/L Chloride 95 L (98-107) mmol/L BUN 39 H (9-20) mg/dL Glucose 100 H (74-99) mg/dL POC Glucose (mg/dL) 117 H 178 H (75-99) mg/dL Microbiology - Last 24 Hours (Table) 10/27/19 18:12 Urine Culture - Final Urine,Voided 10/27/19 12:15 Catheter Tip Culture - Preliminary Catheter Tip 10/27/19 12:00 Catheter Tip Culture - Preliminary Catheter Tip Assessment and Plan Plan: assessment: #1. Acute hypoxemic and hypercapnic respiratory failure secondary to severe COPD exacerbation as well as acute on chronic diastolic congestive heart failure, requiring intubation and mechanical ventilation, patient was successfully weaned and extubated on 10/26/2019 #2. Acute non-ST segment elevated myocardial infarction with previous stenting of the right coronary artery and on the circumflex coronary artery #3. History of severe peripheral neuropathy #4. Prior history of myocardial infarction #5. Nicotine dependence syndrome #6. History of prostate cancer, status post radical prostatectomy, and 2001 #7. Hyperlipidemia #8. Pulmonary embolism #9. Sleep apnea syndrome, not currently using CPAP device #10. Type 2 diabetes mellitus #11. GERD/reflux #12. Benign essential hypertension #13. Hyponatremia, improved Plan: Patient is doing well, FiO2 is down to 4 L, breathing easier, vital signs are stable, no acute events overnight, patient is being discharged home this afternoon, he'll need follow-up appointment in the office Dr. Monroy in one week I performed a history & physical examination of the patient and discussed their management with my nurse practitioner, Galina Cui. I reviewed the nurse practitioner's note and agree with the documented findings and plan of care. Lung sounds are positive for diminished breath sounds. The findings and the impression was discussed with the patient. I attest to the documentation by the nurse practitioner. Time with Patient: Less than 30
--- NOTE | 2019-10-29 15:16 | P.PN ---
Subjective Progress Note Date: 10/29/19 This is a 58-year-old male patient of Dr. Muir, previously seen by Dr. VC Fernando, with past medical history of coronary artery disease with previous stenting of the left circumflex coronary artery and history of hypertension, hyperlipidemia, obesity. Patient also has history of obstructive sleep apnea but does not wear CPAP and also does not utilize home oxygen at bedtime. History of COPD, has esophageal reflux disease, pulmonary embolism, prostate cancer, diabetes mellitus type 2 with diabetic neuropathy. History of Patient under went a heart catheterization May [address] Muir that revealed intermediate triple-vessel coronary artery disease and patent stent in the OM one of the left circumflex. Recommendations at that time was to maximize medical treatment and aggressive cholesterol control. Echocardiogram at that time revealed EF of 55-60% with mild mitral regurgitation, mild tricuspid regurgitation. Presented to the hospital with symptoms of chest discomfort. St ate to the cardiac catheterization lab yesterday by Dr. Camilo where he underwent successful stenting of the mid right coronary artery, reduction in stenosis from 100-0%. Patient was also found to have a significant lesion in the circumflex artery. At the time of my examination this morning, patient complained of midsternal chest discomfort and left arm pain after ambulating to the bathroom, I contacted Dr. Camilo at that time who advised that the patient be taken directly to the cardiac catheterization lab. Blood pressure 168/70 with a heart rate in the 70s, 90% on 3 L of oxygen. Sodium 130, potassium 4.9, BUN 12, creatinine 0.6. Platelet count is 149. 10/29/2019 Patient seen and examined on the cardiac unit this morning. Overall his breathing is improved, he's been ambulating in the room, hemodynamically he is stable. Continues to be on 4 L of oxygen satting 93%. White blood cell count 11.9, hemoglobin 15.3, platelet count 190. Sodium 131, potassium 3.8, BUN 39, creatinine 1.8. Objective - Vital Signs Vital signs: Vital Signs Temp 97.8 F 10/29/19 11:28 Pulse 95 10/29/19 11:28 Resp 18 10/29/19 11:28 BP 107/62 10/29/19 11:28 Pulse Ox 93 L 10/29/19 11:28 Intake & Output 10/28/19 10/29/19 10/29/19 18:59 06:59 18:59 Intake Total 840 472 Output Total 1000 Balance -160 472 Weight 113.4 kg Intake: Oral 840 472 Output: Urine 1000 Other: Voiding Method Urinal Urinal Toilet Urinal # Voids 2 # Bowel Movements 1 ABP, PAP, CO, CI - Last Documented Arterial Blood Pressure 118/59 - Exam Physical examination: Gen: This is a 58-year-old obese male. Patient is complaining of midsternal chest pressure and heaviness VS: Afebrile, heart rate 74, blood pressure 162/77, pulse ox 90% on 2 L nasal cannula. HEENT: Head is atraumatic, normocephalic. Pupils equal, round. Sclerae is anict marissa. NECK: Supple. No JVD. No lymphadenopathy. No thyromegaly. LUNGS: Clear to auscultation. No wheezes or rhonchi. No intercostal retractions. HEART: Regular rate and rhythm. No murmur. ABDOMEN: Soft. Bowel sounds are present. No masses. No tenderness. EXTREMITIES: No pedal edema. No calf tenderness. Right radial site clean and dry, good distal pulse. NEUROLOGICAL: Patient is awake, alert and oriented x3. Cranial nerves 2 through 12 are grossly intact. - Labs CBC & Chem 7: 10/29/19 05:41 10/29/19 05:41 Labs: Abnormal Lab Results - Last 24 Hours (Table) 10/28/19 10/28/19 10/29/19 Range/Units 16:45 20:17 05:41 WBC 11.9 H (3.8-10.6) k/uL RDW 16.7 H (11.5-15.5) % Neutrophils # 9.0 H (1.3-7.7) k/uL Sodium (137-145) mmol/L Chloride (98-107) mmol/L BUN (9-20) mg/dL Glucose (74-99) mg/dL POC Glucose (mg/dL) 173 H 196 H (75-99) mg/dL 10/29/19 10/29/19 10/29/19 Range/Units 05:41 06:09 11:38 WBC (3.8-10.6) k/uL RDW (11.5-15.5) % Neutrophils # (1.3-7.7) k/uL Sodium 131 L (137-145) mmol/L Chloride 95 L (98-107) mmol/L BUN 39 H (9-20) mg/dL Glucose 100 H (74-99) mg/dL POC Glucose (mg/dL) 117 H 178 H (75-99) mg/dL Microbiology - Last 24 Hours (Table) 10/27/19 18:12 Urine Culture - Final Urine,Voided 10/27/19 12:15 Catheter Tip Culture - Preliminary Catheter Tip 10/27/19 12:00 Catheter Tip Culture - Preliminary Catheter Tip Assessment and Plan Plan: Assessment and plan: #1 non-ST elevation [place], status post angioplasty and stenting of the RCA and circumflex #2 History of coronary artery disease #3 Hypertension #4 Hyperlipidemia #5 Chronic diastolic heart failure #6 COPD #7 History of pulmonary embolism on chronic Xarelto #8 History of prostate cancer Plan Cardiology's perspective, the patient may be able to be discharged home today if okay with pulmonary. We will make him a follow-up appointment to see Dr. Camilo in the office post discharge. DNP note has been reviewed, I agree with a documented findings and plan of care. Patient was seen and examined.
== END 2019-10-29 14:45 | disposition home or self-care (01) | DRG 246 ==
LOC: EC 12:23 → 3SCARD 14:02 → 2SICU 10-19 19:22 → 3SCARD 10-28 08:14
PROVIDERS: ADMIT Internal Medicine; ATTEND Internal Medicine
PROC: B2111ZZ Fluoroscopy of Multiple Coronary Arteries using Low Osmolar Contrast (ICD-10-PCS; principal; 2019-10-18 07:30)
PROC: 027034Z Dilation of Coronary Artery, One Artery with Drug-eluting Intraluminal Device, Percutaneous Approach (ICD-10-PCS; principal; 2019-10-18 07:30)
PROC: 4A023N7 Measurement of Cardiac Sampling and Pressure, Left Heart, Percutaneous Approach (ICD-10-PCS; principal; 2019-10-18 07:30)
PROC: B2111ZZ Fluoroscopy of Multiple Coronary Arteries using Low Osmolar Contrast (ICD-10-PCS; 2019-10-19 10:26)
PROC: 027034Z Dilation of Coronary Artery, One Artery with Drug-eluting Intraluminal Device, Percutaneous Approach (ICD-10-PCS; 2019-10-19 10:26)
PROC: 0BH17EZ Insertion of Endotracheal Airway into Trachea, Via Natural or Artificial Opening (ICD-10-PCS; 2019-10-20)
PROC: 5A1955Z Respiratory Ventilation, Greater than 96 Consecutive Hours (ICD-10-PCS; 2019-10-20)
PROC: 06HM33Z Insertion of Infusion Device into Right Femoral Vein, Percutaneous Approach (ICD-10-PCS; 2019-10-20)
DX: I21.4 Non-ST elevation (NSTEMI) myocardial infarction (principal); A41.9 Sepsis, unspecified organism; G93.41 Metabolic encephalopathy; I50.33 Acute on chronic diastolic (congestive) heart failure; J69.0 Pneumonitis due to inhalation of food and vomit; J96.21 Acute and chronic respiratory failure with hypoxia; J96.22 Acute and chronic respiratory failure with hypercapnia; E66.2 Morbid (severe) obesity with alveolar hypoventilation; E87.1 Hypo-osmolality and hyponatremia; I48.19 Other persistent atrial fibrillation; J84.9 Interstitial pulmonary disease, unspecified; J98.11 Atelectasis; K56.7 Ileus, unspecified; I11.0 Hypertensive heart disease with heart failure; E11.42 Type 2 diabetes mellitus with diabetic polyneuropathy; E11.65 Type 2 diabetes mellitus with hyperglycemia; E86.1 Hypovolemia; Z11.59 Encounter for screening for other viral diseases; E78.5 Hyperlipidemia, unspecified; F17.210 Nicotine dependence, cigarettes, uncomplicated; F32.9 Major depressive disorder, single episode, unspecified; F41.9 Anxiety disorder, unspecified; I25.10 Atherosclerotic heart disease of native coronary artery without angina pectoris; I25.2 Old myocardial infarction; J43.9 Emphysema, unspecified; K21.9 Gastro-esophageal reflux disease without esophagitis; T50.2X5A Adverse effect of carbonic-anhydrase inhibitors, benzothiadiazides and other diuretics, initial encounter; I08.1 Rheumatic disorders of both mitral and tricuspid valves; Z68.37 Body mass index [BMI] 37.0-37.9, adult; Z79.01 Long term (current) use of anticoagulants; Z79.02 Long term (current) use of antithrombotics/antiplatelets; Z79.4 Long term (current) use of insulin; Z79.51 Long term (current) use of inhaled steroids; Z79.82 Long term (current) use of aspirin; Z79.899 Other long term (current) drug therapy; Z85.46 Personal history of malignant neoplasm of prostate; Z86.14 Personal history of Methicillin resistant Staphylococcus aureus infection; Z90.79 Acquired absence of other genital organ(s); Z91.19 Patient's noncompliance with other medical treatment and regimen; Z86.711 Personal history of pulmonary embolism; Z88.5 Allergy status to narcotic agent; Z88.8 Allergy status to other drugs, medicaments and biological substances; Z87.01 Personal history of pneumonia (recurrent); Z91.030 Bee allergy status; Z91.040 Latex allergy status; Z99.81 Dependence on supplemental oxygen; Z80.1 Family history of malignant neoplasm of trachea, bronchus and lung; Z82.5 Family history of asthma and other chronic lower respiratory diseases; Z80.8 Family history of malignant neoplasm of other organs or systems; Z82.49 Family history of ischemic heart disease and other diseases of the circulatory system; Y95 Nosocomial condition
CPT/HCPCS: 36410; 36415; 36600; 71045; 71046; 74018; 76937; 80048; 80053; 80061; 81001; 81003; 82805; 83605; 83735; 83880; 84478; 84484; 85025; 85049; 85610; 85730; 87040; 87070; 87086; 87205; 87635; 93005; 93306; 93454; 93458; 94002; 94003; 94640; 94660; 96374; 99285

== ENCOUNTER → 2021-07-28 | Outpatient (CLI) | payer OTHER ==
[2021-07-28 14:07] LABS: HCT 42.5 % (39.6-50.0); HGB 12.7 g/dL (13.0-17.0); MCH 27.3 pg (27.0-32.0); MCHC 29.9 g/dL (32.0-37.0); MCV 91.4 fL (80.0-97.0); Mean Platelet Volume 10.2 fL (9.5-12.2); NRBC Per 100 WBC 0 /100 WBCS (0.0-0.0); Platelet Count 144 X 10*3/uL (140-440); RBC 4.65 X 10*6/uL (4.40-5.60); RDW 18.3 % (11.5-14.5); WBC 5.43 X 10*3/uL (4.50-10.00)
[2021-07-28 14:09] LABS: African American GFR (CKD) 93.9 (60.0-200.0); Anion Gap 12.7 mmol/L (10.00-18.00); Blood Urea Nitrogen 13.9 mg/dL (9.0-27.0); Carbon Dioxide 31.1 mmol/L (20.0-27.5); Potassium 4.8 mmol/L (3.5-5.5)
== END | disposition home or self-care (01) ==
LOC: LABPAT 09:11
PROVIDERS: ATTEND Internal Medicine Interventional Cardiology
DX: Z01.812 Encounter for preprocedural laboratory examination (principal); R94.39 Abnormal result of other cardiovascular function study
CPT/HCPCS: 36415; 80051; 82565; 84520; 85027

== ENCOUNTER 2021-08-02 10:59 | Day surgery (SDC) | payer MEDICARE, OTHER ==
[2021-08-01 10:52] VITALS: BMI 39.2
[~2021-08-02 10:59] MED LIST changes: +ALPRAZolam 0.25 MG TAB PO PRN; +ALPRAZolam 0.5 MG TAB PO PRN; +ASPIRIN 325 MG TAB PO STA; +HEPARIN SODIUM,PORCINE 10,000 UNIT in SODIUM CHLORIDE 0.9% 1,000 ML IRRIGATION PRN; +HEPARIN SODIUM,PORCINE 2,500 UNIT in SODIUM CHLORIDE 0.9% 250 ML IRRIGATION PRN; -HYDROmorphone 0.5 MG/0.5 ML SYRINGE IVP PRN; -LACTATED RINGERS 1,000 ML IV SCH; -LIDOCAINE 1% 20 ML VIAL (10MG/ML) FOR IV START INTRADERMA PRN; -MIDAZOLAM 2 MG/2 ML VIAL IV PRN; +NITROGLYCERIN SL TABS 0.4 MG TAB SUBLINGUAL PRN; -ONDANSETRON 4 MG/2 ML VIAL IVP ONE; +SODIUM CHLORIDE 0.9% 1,000 ML in EMPTY BAG 1 BAG IV SCH; -ceFAZolin 3 GM in SODIUM CHLORIDE 0.9% 100 ML IVPB ONE
[2021-08-02 11:28] VITALS: TEMP 99.5
[2021-08-02 11:36] LABS: Glucose,Whole Blood 118 mg/dL (75-99)
[2021-08-02] MEDS ORDERED: LIDOCAINE 1% INJ 10MG/ML (20 ML MDV) ONE (12:05)
[2021-08-02] MEDS ORDERED: VERAPAMIL 2.5 MG/ML 2 ML AMP ONE (12:05)
[2021-08-02] MEDS ORDERED: MIDAZOLAM 2 MG/2 ML VIAL IV ONE (12:35)
[2021-08-02] MEDS ORDERED: LIDOCAINE 1% INJ 10MG/ML (20 ML MDV) SQ ONE (12:38)
[2021-08-02] MEDS ORDERED: fentaNYL (PF) 50 MCG/ML 2 ML AMP ONE (12:39)
[2021-08-02] MEDS ORDERED: fentaNYL (PF) 50 MCG/ML 2 ML AMP IV ONE (12:42)
[2021-08-02] MEDS ORDERED: IOPAMIDOL-370 125ML BTL INJ ONE (12:48)
[2021-08-02] MEDS ORDERED: RX INFO: IV CONTRAST WAS GIVEN 1 EACH MISC MISCELLANE PRN (13:05)
--- NOTE | 2021-08-02 13:09 | P.PCN ---
Date of Procedure: 08/02/21 Operative Findings: CARDIAC CATHETERIZATION PERFORMING PHYSICIAN: Bernardino Muir MD, RPVI PROCEDURE PERFORMED: 1. Selective right and left coronary angiogram 2. Left heart catheterization INDICATION: Chest discomfort in this 60-year-old gentleman who is known to have CAD with prior stenting of the RCA and also he asked underwent myocardial perfusion imaging stenosis and that revealed an inferior ischemia. COMPLICATION: None APPROACH: Right common femoral artery LEVEL OF SEDATION: Moderate with sedation length of 17 minutes PROCEDURE DESCRIPTION: After obtaining an informed consent, the patient was brought to cardiac slab stripper. Local anesthesia was performed using lidocaine subcutaneously. The right common femoral artery was cannulated using Seldinger technique, the guidewire passed easily, following that we advanced a 6 Nepali sheath dilator assembly, the wire and dilator were removed and sheath was flushed. Selective right and left coronary angiogram using a 6-Nepali JR4 and JL catheters. Following that we did left heart catheterization using 6-Nepali pigtail catheter. The procedure was completed there was no complication. SELECTIVE CORONARY ANGIOGRAM: The right coronary artery: Is a large caliber vessel. The proximal RCA is a stented and the stent is patent. The mid RCA has a lesion appeared to be in the range of 50-60%. The RCA distally appeared to be angiographically normal. Left main: It is angiographically normal. Bifurcates into a CXR and LAD The left circumflex: Is a large caliber vessel nondominant vessel. The LCx proximally gives rises into a large OM branch which is stented and the stent is patent. The LCx distally appeared to have mild disease only and gives rises into a second OM branch which appeared to be angiographically normal The left anterior descending artery: The proximal LAD appeared to have mild disease only. Gives rise into a diagonal branch which seems to be angiographically normal. The mid LAD is angiographically normal and gives rise into the second diagonal branch which seems to be angiographically normal. HEMODYNAMICS: The LVEDP was about 18 mmHg without significant gradient across aortic valve CONCLUSION: 1. Patent stent in the proximal RCA. Intermediate lesion involving the mid RCA appears to be in the range of 60% 2. Patent stent in the first obtuse marginal branch of the left circumflex 3. Mild disease involving the LAD POSTPROCEDURE MANAGEMENT: Consider maximize medical treatment and consider FFR of the RCA if the patient continues to be symptomatic
[2021-08-02] MEDS ORDERED: SODIUM CHLORIDE 0.9% 1,000 ML IV SCH (13:15)
[2021-08-02 14:58] VITALS: RESP 12
[2021-08-02 16:09] VITALS: BP 112/64; PULSE 75
== END 2021-08-02 17:19 | disposition home or self-care (01) ==
LOC: CATHCVL 10:59
PROVIDERS: ATTEND Internal Medicine Interventional Cardiology
DX: I25.10 Atherosclerotic heart disease of native coronary artery without angina pectoris (principal); Z20.822 Contact with and (suspected) exposure to COVID-19
CPT/HCPCS: 93458; 87635; C1894; C1760; J2250; J2001; J3010; Q9967

== ENCOUNTER → 2022-02-01 | Outpatient (CLI) | payer MEDICARE, OTHER ==
[2022-02-01 15:08] LABS: HCT 48.5 % (39.6-50.0); HGB 15.3 g/dL (13.0-17.0); MCH 30.5 pg (27.0-32.0); MCHC 31.5 g/dL (32.0-37.0); MCV 96.8 fL (80.0-97.0); Mean Platelet Volume 9.7 fL (9.5-12.2); NRBC Per 100 WBC 0 /100 WBCS (0.0-0.0); Platelet Count 140 X 10*3/uL (140-440); RBC 5.01 X 10*6/uL (4.40-5.60); RDW 20.7 % (11.5-14.5); WBC 6.74 X 10*3/uL (4.50-10.00)
[2022-02-01 15:15] LABS: African American GFR (CKD) 84.1 (60.0-200.0); Anion Gap 12.3 mmol/L (10.00-18.00); Blood Urea Nitrogen 17.6 mg/dL (9.0-27.0); Carbon Dioxide 28.7 mmol/L (20.0-27.5); Non-African American GFR(CKD) 72.6 (60.0-200.0); Potassium 4.3 mmol/L (3.5-5.5)
== END | disposition home or self-care (01) ==
LOC: LABPAT 09:46
PROVIDERS: ATTEND Internal Medicine Interventional Cardiology
DX: Z01.812 Encounter for preprocedural laboratory examination (principal); I25.10 Atherosclerotic heart disease of native coronary artery without angina pectoris
CPT/HCPCS: 36415; 80051; 82565; 84520; 85027

== ENCOUNTER → 2022-02-14 | Day surgery (SDC) | payer MEDICARE, OTHER ==
[2022-02-13 10:38] VITALS: BMI 39.4
[~2022-02-14] MED LIST changes: +ADENOSINE 180 MG in SODIUM CHLORIDE 0.9% 30 ML IVP ONE; +HEPARIN SODIUM 1,000 UN/ML (10ML VL) ONE; +HYDROmorphone 0.5 MG/0.5 ML SYRINGE IVP ONE; +HYDROmorphone 1 MG/ML 1 ML SYRINGE IVP STA; +HYDROmorphone 1 MG/ML 1 ML SYRINGE ONE; +IOPAMIDOL-370 125ML BTL INJ ONE; +LIDOCAINE 1% INJ 10MG/ML (30 ML VIAL-PF) SQ ONE; +MIDAZOLAM 2 MG/2 ML VIAL IV ONE; +RX INFO: IV CONTRAST WAS GIVEN 1 EACH MISC MISCELLANE PRN; +SODIUM CHLORIDE 0.9% 1,000 ML IV SCH; +VERAPAMIL 2.5 MG/ML 2 ML AMP ONE; +fentaNYL (PF) 50 MCG/ML 2 ML AMP IV ONE; +fentaNYL (PF) 50 MCG/ML 2 ML AMP ONE
[2022-02-14 08:37] LABS: Glucose,Whole Blood 121 mg/dL (70-110)
[2022-02-14] MEDS: HEPARIN SODIUM 1,000 UN/ML (10ML VL) IVP ONE ×2 (09:47→10:00)
--- NOTE | 2022-02-14 10:24 | P.PCN ---
Date of Procedure: 02/14/22 Operative Findings: CARDIAC CATHETERIZATION PERFORMING PHYSICIAN: Bernaridno Muir MD, RPVI PROCEDURE PERFORMED: 1. Selective right and left coronary angiogram 2. FFR of the RCA and LAD 3. Selective right common femoral artery angiogram INDICATION: This is a 61-year-old gentleman who is known to have CAD with prior stenting of the RCA and LCx and known intermediate lesions involving the RCA and LAD continues to have chest discomfort with exertion concerning for angina. In the light of that he was brought today to undergo an FFR. COMPLICATION: None APPROACH: Right common femoral artery LEVEL OF SEDATION: Moderate to sedation length of 31 minutes PROCEDURE DESCRIPTION: After obtaining an informed consent, the patient was brought to cardiac screedman/laborer. Local anesthesia was performed using lidocaine subcutaneously. The right common femoral artery was cannulated using Seldinger technique, the guidewire passed easily, following that we advanced a 6 Cymraes sheath dilator assembly, the wire and dilator were removed and sheath was flushed. Selective right and left coronary angiogram using a 6-Cymraes JR4 and JL catheters. I did perform an FFR of both the RCA and LAD. FFR of the RCA came in to be 0.82. Of the LAD I did only and IFR and that came in to be at 0.91. FFR of the RCA was performed using JR4 guide and FFR of the LAD was performed using JL4 guide. The procedure was completed there was no complication. SELECTIVE CORONARY ANGIOGRAM: The right coronary artery: Large caliber vessel and a dominant vessel. The mid RCA has intermediate lesion appeared to be in the range of 50%. FFR was performed and came in to be nonischemic. The FFR was 0.8 to Left main: Is angiographically normal. Bifurcates into an LCx and LAD The left circumflex: Large caliber vessel nondominant vessel. The proximal LCx has mild disease only and gives rise into a large OM branch which appeared to be stented and the stent is patent. The left circumflex after that has intermediate lesion appeared to be in the range of 50%. The circumflex distally appeared to be angiographically normal The left anterior descending artery: The proximal LAD has eccentric lesion appears to be in the range of 60%. Also we did an I Raya ordered and that came in to be nonischemic. The mid and distal LAD appears to have mild disease only. HEMODYNAMICS: #1 intermediate lesion involving the RCA. FFR was 0.82. Medical treatment was advised #2 intermediate lesion involving the LAD. iFR was performed and came in to be an 0.91. CONCLUSION: 1. Medical treatment 2. Aggressive cholesterol control 3. Follow-up with the patient POSTPROCEDURE MANAGEMENT: []
[2022-02-14 18:25] VITALS: PULSE 78; RESP 16
[2022-02-14 18:29] VITALS: BP 114/73; TEMP 98.1
== END ==
LOC: CATHCVL 08:01
PROVIDERS: ATTEND Internal Medicine Interventional Cardiology
DX: I25.10 Atherosclerotic heart disease of native coronary artery without angina pectoris (principal); E78.2 Mixed hyperlipidemia; J44.9 Chronic obstructive pulmonary disease, unspecified; Z91.040 Latex allergy status; Z88.5 Allergy status to narcotic agent; Z88.8 Allergy status to other drugs, medicaments and biological substances; Z91.030 Bee allergy status; Z79.51 Long term (current) use of inhaled steroids; Z79.899 Other long term (current) drug therapy
CPT/HCPCS: 93571; 93572; 93454; 87635; C1760; C1887 ×2; C1769 ×4; C1894; J2250; J2001; J3010; J1644; J1170 ×2; J0153; Q9967

== ENCOUNTER → 2022-12-10 | Outpatient (CLI) | payer OTHER ==
--- NOTE | 2022-12-10 10:21 | US ---
EXAMINATION TYPE: US liver DATE OF EXAM: 12/10/2022 COMPARISON: 12/19/2015 CLINICAL INDICATION: Male, 61 years old with history of R94.5 ABN LIVER FUNCTIONS; TECHNIQUE: Multiple sonographic images of the right upper quadrant are obtained. FINDINGS: EXAM MEASUREMENTS: Liver Length: 17.7 cm Gallbladder Wall: 0.2 cm CBD: 0.6 cm Right Kidney: 14.5 x 5.3 x 5.1 cm SECURITY OFFICERS AND GUARDS NOTES: Pancreas: visualized portions wnl Liver: enlarged, difficult to penetrate no suspicious observations. Gallbladder: No stones seen Evidence for sonographic Urbina's sign: No CBD: wnl Right Kidney: No hydronephrosis or masses seen IMPRESSION: Hepatic steatosis.
== END | disposition home or self-care (01) ==
LOC: RADUSWWP 09:37
DX: K76.0 Fatty (change of) liver, not elsewhere classified (principal); R94.5 Abnormal results of liver function studies
CPT/HCPCS: 76705

== ENCOUNTER 2024-08-11 21:25 | Observation (INO) | payer OTHER, MEDICARE ==
[2024-08-11] MEDS: MORPHINE SULFATE 4 MG/ML SYRINGE IV STA (21:47)
[2024-08-11] MEDS: ONDANSETRON 4 MG/2 ML VIAL IVP STA ×2 (21:47→23:32)
[2024-08-11] MEDS: ASPIRIN 81 MG PO STA (21:47)
[2024-08-11 21:49] LABS: Anisocytosis Moderate; Basophils % (A) 0 %; Eosinophils # (A) 0.1 k/uL (0-0.7); Eosinophils % (A) 1 %; HCT 38.1 % (39.0-53.0); HGB 11.8 gm/dL (13.0-17.5); Hypochromasia Moderate; Lymphocytes # (A) 1.2 k/uL (1.0-4.8); Lymphocytes % (A) 25 %; MCH 26.5 pg (25.0-35.0); MCV 85.6 fL (80.0-100.0); Monocytes # (A) 0.4 k/uL (0-1.0); Monocytes % (A) 8 %; Neutrophils % (A) 63 %; Platelet Count 153 k/uL (150-450); Poikilocytosis Moderate; RBC 4.45 m/uL (4.30-5.90); RDW 20.1 % (11.5-15.5); WBC 4.8 k/uL (3.8-10.6)
[2024-08-11 21:58] LABS: INR 1.3 (<1.2); Partial Thromboplastin Time 29.1 sec (22.0-30.0); Prothrombin Time 13.7 sec (10.0-12.5)
[2024-08-11 22:10] LABS: ALT 75 U/L (4-49); AST 71 U/L (17-59); African American GFR (CKD) >90 (>60 ml/min/1.73 sqM); Albumin 4.3 g/dL (3.5-5.0); Alkaline Phosphatase 64 U/L (38-126); Anion Gap 13 mmol/L; Blood Urea Nitrogen 17 mg/dL (9-20); Calcium 9.3 mg/dL (8.4-10.2); Carbon Dioxide 25 mmol/L (22-30); Chloride 96 mmol/L (98-107); Glucose 206 mg/dL (74-99); Lipase 110 U/L (23-300); Magnesium 2.1 mg/dL (1.6-2.3); Non-African American GFR(CKD) >90 (>60 ml/min/1.73 sqM); Potassium 4.1 mmol/L (3.5-5.1); Sodium 134 mmol/L (137-145); Total Bilirubin 0.7 mg/dL (0.2-1.3); Total Protein 6.8 g/dL (6.3-8.2)
--- NOTE | 2024-08-11 22:11 | XR ---
EXAMINATION TYPE: XR chest 2V DATE OF EXAM: 08/11/2024 10:05 PM COMPARISON: Multiple radiographs, with the most recent on 08/18/2023 TECHNIQUE: XR chest 2V Frontal and lateral views of the chest. CLINICAL INDICATION:Male, 63 years old with history of Chest Pain; FINDINGS: Lungs/Pleura: There is flattening of the diaphragm with increased lucency of the lungs. No evidence o f pneumothorax, pleural effusion or focal consolidation. Biapical pleural thickening. Chronic senesce nt parenchymal change. Pulmonary vascularity: Unremarkable. Heart/mediastinum: Cardiomediastinal silhouette is unremarkable. Musculoskeletal: Multiple level degenerative disc disease changes seen throughout the spine. IMPRESSION: 1. No acute cardiopulmonary disease process. 2. COPD changes. [facility], , 08/11/2024 10:09 PM
[2024-08-11 22:20] LABS: NT-Pro-B-Type Natriuretic Pept <20 pg/mL
--- NOTE | 2024-08-11 22:30 | ED ---
General Adult HPI - General Chief complaint: Chest Pain Stated complaint: Chest Pain Time Seen by Provider: 08/11/24 21:28 Source: patient, EMS Mode of arrival: EMS - History of Present Illness Initial comments: Patient is a 63 y/o gentleman PMH CAD s/p stents, prior PE on Xarelto, COPD presenting today for chest pain. Began around dinnertime this evening and described as pressure like, in the center of his chest, radiating down his left arm, no radiation to his back. Trialed home SL nitro w/o relief. Patient denies change w/ activity. At time of onset, had brief nausea, Currently denies XANDER, nausea, vomiting, cough, recent fevers or chills, hemoptysis, LE swelling. Pt given SL nitro by EMS w/ slight improvement in pain. - Related Data Home Medications Medication Instructions Recorded Confirmed Budesonide/Formoterol Fumarate 2 puff INHALATION DIRECTED 02/10/15 08/12/24 [Symbicort 160-4.5 Mcg Inhaler] Nitroglycerin Sl Tabs [Nitrostat] 0.4 mg SUBLINGUAL Q5M PRN 02/10/15 08/12/24 Omeprazole [PriLOSEC] 20 mg PO AC-BID 02/10/15 08/12/24 Cyanocobalamin (Vitamin B-12) 1,000 mcg PO DAILY 03/02/19 08/12/24 [Vitamin B-12] Loratadine 10 mg PO DAILY 03/02/19 08/12/24 Insulin Glargine,Hum.rec.anlog 50 unit SQ DAILY 05/30/19 08/12/24 [Lantus Solostar Pen] Albuterol Inhaler [Ventolin Hfa 2 puff INHALATION RT-QID PRN 10/16/19 08/12/24 Inhaler] Rivaroxaban [Xarelto] 20 mg PO DAILY 08/01/21 08/12/24 Acetaminophen [Tylenol Arthritis] 650 mg PO Q6H PRN 08/12/24 08/12/24 Cholecalciferol [Vitamin D3 (25 25 mcg PO DAILY 08/12/24 08/12/24 Mcg = 1000 Iu)] Empagliflozin [Jardiance] 10 mg PO DAILY 08/12/24 08/12/24 Ezetimibe [Zetia] 10 mg PO DAILY 08/12/24 08/12/24 Insulin Aspart [NovoLOG Flexpen] 10 units SQ TID-W/MEALS 08/12/24 08/12/24 Tiotropium 2.5 Mcg/Puff [Spiriva 2 puff INHALATION RT-DAILY 08/12/24 08/12/24 Respimat 2.5 Mcg] metFORMIN HCL 500 mg PO BID 08/12/24 08/12/24 Previous Rx's Medication Instructions Recorded Furosemide [Lasix] 40 mg PO BID #60 tab 03/04/19 lisinopriL [Zestril] 2.5 mg PO DAILY #30 tab 06/01/19 Isosorbide Mononitrate ER [Imdur] 60 mg PO BID #60 tab 08/29/19 Metoprolol Tartrate [Lopressor] 50 mg PO BID 30 Days #60 tab 10/29/19 Aspirin 81 mg PO DAILY #90 tab 08/12/24 Atorvastatin [Lipitor] 80 mg PO DAILY #60 tab 08/12/24 Allergies Allergy/AdvReac Type Severity Reaction Status Date / Time latex Allergy Itching/red Verified 08/12/24 12:37 skin pregabalin [From Lyrica] Allergy Dyspnea Verified 08/12/24 12:37 venom-honey bee Allergy Unknown Verified 08/12/24 12:37 [bee venom (honey bee)] atorvastatin AdvReac MUSCLE PAIN Verified 08/12/24 12:37 prednisone AdvReac "caused Verified 08/12/24 12:37 shoulder pain" per patient rosuvastatin calcium AdvReac MUSCLE PAIN Verified 08/12/24 12:37 [From Crestor] tramadol AdvReac SUICIDAL Verified 08/12/24 12:37 THOUGHTS venlafaxine AdvReac SUICIDAL Verified 08/12/24 12:37 THOUGHTS Review of Systems ROS Statement: Those systems with pertinent positive or pertinent negative responses have been documented in the HPI. ROS Other: All systems not noted in ROS Statement are negative. Past Medical History Past Medical History: Asthma, Coronary Artery Disease (CAD), Cancer, Heart Failure, COPD, Diabetes Mellitus, GERD/Reflux, Hyperlipidemia, Hypertension, Myocardial Infarction ([place]), Pneumonia, Prostate Disorder, Pulmonary Embolus ([place]) Additional Past Medical History / Comment(s): Chronic CHF, bronchitis, L lung PE, prostate cancer with surgery, IDDM type II with peripheral neuropathy biltateral arms/hands/legs and feet, R leg ORIF with post op life support/wound dehiscence-debridements/skin grafting-now healed, bilateral lower extremity edema at times, SAMIR-does not use CPap d/t no way to clean it, home oxygen which pt states he is to wear 2-2.5L/NC ATC, past coccyx fracture, sinus infections. Last Myocardial Infarction Date:: History of Any Multi-Drug Resistant Organisms: MRSA, VRE Date of last positivie culture/infection: 09/2017 MDRO Source:: right leg Past Surgical History: Heart Catheterization, Heart Catheterization With Stent, Orthopedic Surgery, Prostate Surgery Additional Past Surgical History / Comment(s): R leg trauma/ORIF, dehiscence R leg/debridements/wound vac/skin grafting, prostatectomy. Past Anesthesia/Blood Transfusion Reactions: Previous Problems w/ Anesthesia Additional Past Anesthesia/Blood Transfusion Reaction / Comment(s): states post op for orif of leg at [facility], was on life support, also states unable to lay flat related to COPD Date of Last Stent Placement:: 2018 Past Psychological History: Anxiety, Depression Smoking Status: Former smoker - Past Family History Mother Family Medical History: COPD, Vascular Disorder Additional Family Medical History / Comment(s): Mother is . She had AAA. Father Family Medical History: Cancer Additional Family Medical History / Comment(s): : lung ca with brain mets. General Exam - General Exam Comments Initial Comments: PE: CONSTITUTIONAL: No apparent distress, well appearing SKIN: Warm, dry, no jaundice, hives or petechiae EYES: Pupils are equally round, extraocular movements intact without nystagmus, clear conjunctiva, non-icteric sclera HENT: Normocephalic, atraumatic, moist mucus membranes, oropharynx clear without exudates NECK: , Full range of motion, normal appearance PULMONARY: Clear to auscultation without wheezes, rhonchi, or rales, normal excursion, no accessory muscle use and no stridor CARDIOVASCULAR: Regular rate, rhythm, normal S1 and S2. No appreciated murmurs, rubs or gallops. Strong radial pulses with intact distal perfusion. No lower extremity edema GASTROINTESTINAL: Soft, active bowel sounds throughout, non-tender, non- distended, no palpable masses, no rebound or guarding. No hepatosplenomegaly GENITOURINARY: MUSCULOSKELETAL: Extremities have no gross deformity, no edema, redness, or swelling. No calf swelling NEUROLOGIC:_a/o x 3, GCS 15, normal mentation and speech. Moves all extremities x 4 without motor or sensory deficit PSYCHIATRIC:_normal mood and affect, thought process is clear and linear Course Vital Signs 08/11/24 08/11/24 08/12/24 21:27 22:35 00:28 Temperature 98.6 F Pulse Rate 84 77 82 Respiratory 18 16 18 Rate Blood Pressure 107/69 98/56 114/64 O2 Sat by Pulse 93 L 91 L 90 L Oximetry EKG Findings - EKG Comments: EKG Findings:: Rhythm, rate 79 bpm HI interval 205 QT QTc 333/367, normal axis, no ST elevations or depressions, aVR does have significant artifact so we will repeat EKG, no arrhythmia no STEMI. Repeat EKG performed at 2215, shows sinus rhythm rate 81 bpm HI interval 189 ms QT/QTc 347/384 ms, normal axis, no ST elevations, T wave inversion in aVR, artifact over longer present, no significant changes from initial EKG Medical Decision Making - Medical Decision Making Was pt. sent in by a medical professional or institution (, PA, SIZE MAKER, urgent care, hospital, or fpc...) When possible be specific @ -No Did you speak to anyone other than the patient for history (EMS, parent, family, police, friend...)? What history was obtained from this source EMS personnel state that and route after the fourth sublingual nitroglycerin they administered, patient appeared to go in A-fib with RVR. They present with a telemetry strip from that time, there is significant artifact present on this strip making it difficult to differentiate between atrial fib vs sinus rhythm. On arrival pt in sinus rhythm. Did you review nursing and triage notes (agree or disagree)? Why? @ -I reviewed nursing and triage notes- States the patient arrives with subster nal chest pain, history of prior MA with 7 stents, does note that patient wanted to afebrile and route after his fourth sublingual nitro/. Were old charts reviewed (outside hosp., previous admission, EMS record, old EKG, old radiological studies, urgent care reports/EKG's, fpc records)? Report findings @ -Medical records reviewed-reviewed cardiac cath report from 2019, patient had a cardiac cath performed May 2019 that showed intermediate triple-vessel CAD and a patent stent in the left circumflex Differential Diagnosis (chest pain, altered mental status, abdominal pain women, abdominal pain men, vaginal bleeding, weakness, fever, dyspnea, syncope, headache, dizziness, GI bleed, back pain, seizure, CVA, palpatations, mental health, musculoskeletal)? @ -Differential Chest Pain: Stable Angina, Unstable Angina, STEMI, NSTEMI Aortic Dissection, pericarditis, pleurisy, chostochondirits, Pneumothorax, Musculoskeletal, Esophageal Spasm GERD, Cholecystitis, Pancreatitis, Zoster, this is not meant to be an all- inclusive list. Patient has no radiation to his back, pain is not described as tearing, he is not significantly hypertensive on arrival at this time I have a very low suspicion for aortic dissection and did not feel CT of the chest indicated at this point EKG interpreted by me (3pts min.). @ -As above X-rays interpreted by me (1pt min.). Personally reviewed chest x-ray see no evidence of cardiomegaly, consolidations or pleural effusions CT interpreted by me (1pt min.). @ -None done U/S interpreted by me (1pt. min.). @ -None done What testing was considered but not performed or refused? (CT, X-rays, U/S, labs)? Why? @ -None What meds were considered but not given or refused? Why? No pain medication was discussed and offered to the patient however he politely declined Did you discuss the management of the patient with other professionals (professionals i.e. , PA, SIZE MAKER, lab, RT, psych nurse, director social, commercial airline pilot, teacher, commissioned security officer, pillowcase cutter)? Give summary @ -No Was smoking cessation discussed for >3mins.? @ -No Was critical care preformed (if so, how long)? @ -No Were there social determinants of health that impacted care today? How? ( Homelessness, low income, unemployed, alcoholism, drug addiction, transportation, low edu. Level, literacy, decrease access to med. care, [place] [facility], rehab)? @ -No Was there de-escalation of care discussed even if they declined (Discuss DNR or withdrawal of care, Hospice)? @ -No What co-morbidities impacted this encounter? (DM, HTN, Smoking, COPD, CAD, Cancer, CVA, ARF, Chemo, Hep., AIDS, mental health diagnosis, sleep apnea, morbid obesity)? CAD, DM, COPD Was patient admitted / discharged? Hospital course, mention meds given and route, prescriptions, significant lab abnormalities, going to OR and other pertinent info. @ Admission- 63 y/o gentleman presenting today for substernal CP x 1 evening, slight relief w/ SL nitro. Stable vitals on arrival. EKG does not show STEMI. Plan for chest pain workup, morphine, zofran, ASA. Anticipate admission. Pt agreeable w/ POC. Labs and imaging reviewed. D-dimer 0.20, sodium 134, chloride 96, mild hyperglycemia glucose 206, AST/ALT 71/75, BNP undetectable, troponin undetectable. On reassessment patient endorsed some improvement of pain, I offered him additional morphine however pt does not want to take too many narcotics so politely declined. Discussed w/pt plan for admission. Case discussed w/Dr. Mix, admission for unstable angina. Kindly accepts pt for admission. Did request addition of heparin gtt so this was ordered at time of admission. Undiagnosed new problem with uncertain prognosis? @ -No Drug Therapy requiring intensive monitoring for toxicity (Heparin, Nitro, Insulin, Cardizem)? @ -Heparin Were any procedures done? @ -No Diagnosis/symptom? @Unstable Angina Acute, or Chronic, or Acute on Chronic? @ -acute Uncomplicated (without systemic symptoms) or Complicated (systemic symptoms)? @ -Complicated Side effects of treatment? @ -No Exacerbation, Progression, or Severe Exacerbation? @ -No Poses a threat to life or bodily function? How? (Chest pain, [place], MA, pneumonia, PE, COPD, DKA, ARF, appy, cholecystitis, CVA, Diverticulitis, Homicidal, Suicidal, threat to staff... and all critical care pts) @ -Yes, if left untreated could progress to myocardial infarction - Lab Data Result diagrams: 08/12/24 06:03 08/12/24 06:03 Lab Results 08/11/24 08/11/24 08/11/24 Range/Units 21:43 21:43 21:43 WBC 4.8 (3.8-10.6) k/uL RBC 4.45 (4.30-5.90) m/uL Hgb 11.8 L (13.0-17.5) gm/dL Hct 38.1 L (39.0-53.0) % MCV 85.6 (80.0-100.0) fL MCH 26.5 (25.0-35.0) pg MCHC 31.0 (31.0-37.0) g/dL RDW 20.1 H (11.5-15.5) % Plt Count 153 (150-450) k/uL MPV 8.0 Neutrophils % 63 % Lymphocytes % 25 % Monocytes % 8 % Eosinophils % 1 % Basophils % 0 % Neutrophils # 3.0 (1.3-7.7) k/uL Lymphocytes # 1.2 (1.0-4.8) k/uL Monocytes # 0.4 (0-1.0) k/uL Eosinophils # 0.1 (0-0.7) k/uL Basophils # 0.0 (0-0.2) k/uL Hypochromasia Moderate Poikilocytosis Moderate Anisocytosis Moderate PT 13.7 H (10.0-12.5) sec INR 1.3 H (<1.2) APTT 29.1 (22.0-30.0) sec D-Dimer (<0.60) mg/L FEU Sodium 134 L (137-145) mmol/L Potassium 4.1 (3.5-5.1) mmol/L Chloride 96 L (98-107) mmol/L Carbon Dioxide 25 (22-30) mmol/L Anion Gap 13 mmol/L BUN 17 (9-20) mg/dL Creatinine 0.89 (0.66-1.25) mg/dL Est GFR (CKD-EPI)AfAm >90 (>60 ml/min/1.73 sqM) Est GFR (CKD-EPI)NonAf >90 (>60 ml/min/1.73 sqM) Glucose 206 H (74-99) mg/dL Calcium 9.3 (8.4-10.2) mg/dL Magnesium 2.1 (1.6-2.3) mg/dL Total Bilirubin 0.7 (0.2-1.3) mg/dL AST 71 H (17-59) U/L ALT 75 H (4-49) U/L Alkaline Phosphatase 64 (38-126) U/L Troponin I (0.000-0.034) ng/mL NT-Pro-B Natriuret Pep <20 pg/mL Total Protein 6.8 (6.3-8.2) g/dL Albumin 4.3 (3.5-5.0) g/dL Lipase 110 (23-300) U/L 08/11/24 08/11/24 Range/Units 21:43 21:43 WBC (3.8-10.6) k/uL RBC (4.30-5.90) m/uL Hgb (13.0-17.5) gm/dL Hct (39.0-53.0) % MCV (80.0-100.0) fL MCH (25.0-35.0) pg MCHC (31.0-37.0) g/dL RDW (11.5-15.5) % Plt Count (150-450) k/uL MPV Neutrophils % % Lymphocytes % % Monocytes % % Eosinophils % % Basophils % % Neutrophils # (1.3-7.7) k/uL Lymphocytes # (1.0-4.8) k/uL Monocytes # (0-1.0) k/uL Eosinophils # (0-0.7) k/uL Basophils # (0-0.2) k/uL Hypochromasia Poikilocytosis Anisocytosis PT (10.0-12.5) sec INR (<1.2) APTT (22.0-30.0) sec D-Dimer 0.20 (<0.60) mg/L FEU Sodium (137-145) mmol/L Potassium (3.5-5.1) mmol/L Chloride (98-107) mmol/L Carbon Dioxide (22-30) mmol/L Anion Gap mmol/L BUN (9-20) mg/dL Creatinine (0.66-1.25) mg/dL Est GFR (CKD-EPI)AfAm (>60 ml/min/1.73 sqM) Est GFR (CKD-EPI)NonAf (>60 ml/min/1.73 sqM) Glucose (74-99) mg/dL Calcium (8.4-10.2) mg/dL Magnesium (1.6-2.3) mg/dL Total Bilirubin (0.2-1.3) mg/dL AST (17-59) U/L ALT (4-49) U/L Alkaline Phosphatase (38-126) U/L Troponin I <0.012 (0.000-0.034) ng/mL NT-Pro-B Natriuret Pep pg/mL Total Protein (6.3-8.2) g/dL Albumin (3.5-5.0) g/dL Lipase (23-300) U/L Disposition Clinical Impression: Unstable angina Disposition: ADMITTED IP TO THIS HOSP Condition: Stable
[2024-08-11] MEDS ORDERED: ALPRAZolam 0.25 MG TAB PO PRN (23:17)
[2024-08-11] MEDS ORDERED: NITROGLYCERIN SL TABS 0.4 MG TAB SUBLINGUAL PRN (23:17)
[2024-08-11] MEDS ORDERED: HEPARIN SODIUM 1,000 UN/ML (10ML VL) IV PRN (23:21)
[2024-08-11] MEDS: MORPHINE SULFATE 4 MG/ML SYRINGE IVP STA (23:33)
[2024-08-12] MEDS: HEPARIN SOD,PORK IN 0.45% NACL 25,000 UNIT in 0.45% NACL 1 250ML.BAG IV SCH (00:32)
[2024-08-12] MEDS: HEPARIN SODIUM 1,000 UN/ML (10ML VL) IV ONE (00:38)
--- NOTE | 2024-08-12 00:55 | P.HPIM ---
History of Present Illness H&P Date: 08/11/24 Patient is a 63-year-old male with a PMH of coronary artery disease s/p stents x 7, COPD on 2.5 L of home oxygen, prostate cancer currently in remission s/p prostatectomy, HFpEF (EF of 55-60% in 2020), history of PE on Xarelto presenting with chest pain. Patient states chest pain occurred after having dinner while at rest around 4 pm. Describes as a constant pressure-like 7/10 pain that radiates to both sides of the neck and jaw along with L arm, worsened with exertion, with no additional aggravating/alleviating factors. He states it was similar feeling to his first [place]. Patient states he took nitroglycerin on initial onset of chest pain but was not relieved. EMS gave nitroglycerin 3 time s and was partially relieved afterwards. During the interview patient states he still has chest pain. He denies any nausea, vomiting, diaphoresis, headache, vision changes, abdominal pain. EKG independently interpreted displays CXR independently interpreted displays no acute cardiopulmonary process Troponin <0.012 x 2, proBNP <20, D-dimer 0.20, WBC 4.8, Hgb 11.8, HCT 38.1, MCV 85.6, platelet 153, PT 13.7, INR 1.3, APTT 29.1, D-dimer 0.20, sodium T 98 F, ME 84, RR 18, BP 107/69, O2 sat 93% on 2 L nasal cannula ED documentation reviewed. Review of systems: Pertinent positives and negatives as discussed in HPI, a complete review of systems was performed and all other systems are negative. Social history: Tobacco: Former [id number] smoker, quit 3 years ago Alcohol: Rare alcohol use Recreational drugs: Marijuana Gummies Physical examination: Vital signs reviewed General: non toxic, no distress, appears at stated age, normal weight Derm: no unusual rashes/lesions, warm Head: atraumatic, normocephalic, symmetric Eyes: EOMI, anicteric sclera, pupils equal round reactive to light ENT: Nose and ears atraumatic Mouth: no lip lesion, mucus membranes moist Cardiovascular: S1S2 reg, no murmur, positive dorsalis pedis pulse bilateral, no edema Lungs: Diminished lung sounds, no rhonchi, no rales, no accessory muscle use Abdominal: soft, nontender to palpation, no guarding Ext: muscle strength 5 out of 5 in all 4 extremities grossly, no gross muscle atrophy, 1+ bilateral lower extremity edema, b/l LE stasis dermatitis Neuro: CN II-XI grossly intact, no gross focal neuro deficits Psych: Alert, oriented to person, place, and time Assessment/Plan: Patient is a 63-year-old male with a PMH of coronary artery disease, myocardial infarction in 2002, 2004 s/p stents x 7, COPD on 2-1/2 L of home oxygen, prostate cancer currently in remission, HFpEF (EF of 55-60% in 2019) presenting with chest pain. #. Unstable angina #. Coronary artery disease #. History of [place] Heart score 4 MATTHEW score 4 Troponin <0.012 x 2, continue to trend proBNP <20 EKG independently interpreted displays CXR independently interpreted displays acute cardiopulmonary process Aspirin 81 mg p.o. daily Lipitor 80 mg p.o. daily Nitroglycerin 0.4 mg sublingual Q5M as needed Patient notes his most recent dose of Xarelto was at 5 pm on 08/11 (Friday) Hold off on Heparin at this time Lipid panel, A1c, TSH ordered Cardiac telemetry Cardiology consulted Order Echocardiogram #. Insulin dependent diabetes Insulin SQ sliding scale Insulin aspart 15 units SQ 3 times daily with meals Lantus 55 units in the morning Hypoglycemic precaution Accu-Cheks ACHS #. COPD on 2.5 L home oxygen not in acute exacerbation Currently on 4 L nasal cannula Denies any cough or sputum production Resume home breathing treatments #. Heart failure with preserved ejection fraction, not in acute exacerbation #. Mild hyponatremia Near baseline, continue to monitor with follow-up CMP #. Normocytic anemia Obtain iron profile TSH and folate ordered Repeat a.m. CBC #. History of PE Hold Xarelto #. Transaminitis Continue to monitor with follow-up CMP F: N/A E: Replete electrolytes as needed N: NPO A: Ambulates with cane/walker, cardiac rehab consult, fall precautions DVT prophylaxis: Xarelto The patient is admitted with an anticipated greater than 2 midnight stay for evaluation of acute chest pain CODE STATUS: Full code Discussed with: Patient Anticipated discharge place: Pending clinical course Juana Fuentes MD PGY-1 IM Dictation was produced using MROation software. please excuse any grammatical, word or spelling errors. Past Medical History Past Medical History: Asthma, Coronary Artery Disease (CAD), Cancer, Heart F ailure, COPD, Diabetes Mellitus, GERD/Reflux, Hyperlipidemia, Hypertension, Myocardial Infarction ([place]), Pneumonia, Prostate Disorder, Pulmonary Embolus (PE) Additional Past Medical History / Comment(s): Chronic CHF, bronchitis, L lung PE, prostate cancer with surgery, IDDM type II with peripheral neuropathy biltateral arms/hands/legs and feet, R leg ORIF with post op life support/wound dehiscence-debridements/skin grafting-now healed, bilateral lower extremity edema at times, SAMIR-does not use CPap d/t no way to clean it, home oxygen which pt states he is to wear 2-2.5L/NC ATC, past coccyx fracture, sinus infections. Last Myocardial Infarction Date:: History of Any Multi-Drug Resistant Organisms: MRSA, VRE Date of last positivie culture/infection: 09/2017 MDRO Source:: right leg Past Surgical History: Heart Catheterization, Heart Catheterization With Stent, Orthopedic Surgery, Prostate Surgery Additional Past Surgical History / Comment(s): R leg trauma/ORIF, dehiscence R leg/debridements/wound vac/skin grafting, prostatectomy. Past Anesthesia/Blood Transfusion Reactions: Previous Problems w/ Anesthesia Additional Past Anesthesia/Blood Transfusion Reaction / Comment(s): states post op for orif of leg at [facility], was on life support, also states unable to lay flat related to COPD Date of Last Stent Placement:: 2018 Past Psychological History: Anxiety, Depression Smoking Status: Former smoker - Past Family History Mother Family Medical History: COPD, Vascular Disorder Additional Family Medical History / Comment(s): Mother is . She had AAA. Father Family Medical History: Cancer Additional Family Medical History / Comment(s): : lung ca with brain mets. Medications and Allergies Home Medications Medication Instructions Recorded Confirmed Type Budesonide/Formoterol Fumarate 2 puff INHALATION RT-BID 02/10/15 02/14/22 History [Symbicort 160-4.5 Mcg Inhaler] Nitroglycerin Sl Tabs [Nitrostat] 0.4 mg SUBLINGUAL Q5M PRN 02/10/15 02/13/22 History Omeprazole [PriLOSEC] 20 mg PO AC-BID 02/10/15 02/14/22 History Cholecalciferol [Vitamin D3 (25 1,000 unit PO DAILY 03/02/19 02/14/22 History Mcg = 1000 Iu)] Cyanocobalamin (Vitamin B-12) 1,000 mcg PO DAILY 03/02/19 02/14/22 History [Vitamin B-12] Loratadine 10 mg PO DAILY 03/02/19 02/14/22 History Furosemide [Lasix] 40 mg PO BID #60 tab 03/04/19 02/14/22 Rx Insulin Glargine,Hum.rec.anlog 55 unit SQ QAM 05/30/19 02/14/22 History [Lantus Solostar Pen] lisinopriL [Zestril] 2.5 mg PO DAILY #30 tab 06/01/19 02/14/22 Rx Isosorbide Mononitrate ER [Imdur] 60 mg PO BID #60 tab 08/29/19 02/14/22 Rx Vascepa 1gm 2 gm PO DAILY 08/29/19 02/13/22 History Albuterol Inhaler [Ventolin Hfa 2 puff INHALATION RT-QID PRN 10/16/19 02/14/22 History Inhaler] Metoprolol Tartrate [Lopressor] 50 mg PO BID 30 Days #60 tab 10/29/19 02/14/22 Rx Insulin Aspart [NovoLOG] 15 units SQ TID-W/MEALS 08/01/21 02/14/22 History Rivaroxaban [Xarelto] 20 mg PO DAILY 08/01/21 02/14/22 History Atorvastatin [Lipitor] 40 mg PO HS 08/02/21 02/14/22 History Acetaminophen [Tylenol] 325 mg PO Q4H PRN 02/13/22 02/13/22 History Ferrous Sulfate [Iron] 325 mg PO HS 02/13/22 02/14/22 History Tiotropium 18 Mcg/Puff [Spiriva] 1 puff INHALATION DAILY 02/13/22 02/14/22 History Allergies Allergy/AdvReac Type Severity Reaction Status Date / Time latex Allergy Itching/red Verified 08/11/24 22:39 skin pregabalin [From Lyrica] Allergy Dyspnea Verified 08/11/24 22:39 venom-honey bee Allergy Unknown Verified 08/11/24 22:39 [bee venom (honey bee)] atorvastatin AdvReac MUSCLE PAIN Verified 08/11/24 22:39 prednisone AdvReac "caused Verified 08/11/24 22:39 shoulder pain" per patient rosuvastatin calcium AdvReac MUSCLE PAIN Verified 08/11/24 22:39 [From Crestor] tramadol AdvReac SUICIDAL Verified 08/11/24 22:39 THOUGHTS venlafaxine AdvReac SUICIDAL Verified 08/11/24 22:39 THOUGHTS Physical Exam Vitals: Vital Signs Temp Pulse Resp BP Pulse Ox 08/11/24 22:35 77 16 98/56 91 L 08/11/24 21:27 98.6 F 84 18 107/69 93 L Intake and Output 08/11/24 08/11/24 08/12/24 14:59 22:59 06:59 Other: Weight 122.47 kg Results CBC & Chem 7: 08/11/24 21:43 08/11/24 21:43 Labs: Abnormal Lab Results - Last 24 Hours (Table) 08/11/24 08/11/24 08/11/24 Range/Units 21:43 21:43 21:43 Hgb 11.8 L (13.0-17.5) gm/dL Hct 38.1 L (39.0-53.0) % RDW 20.1 H (11.5-15.5) % PT 13.7 H (10.0-12.5) sec INR 1.3 H (<1.2) Sodium 134 L (137-145) mmol/L Chloride 96 L (98-107) mmol/L Glucose 206 H (74-99) mg/dL AST 71 H (17-59) U/L ALT 75 H (4-49) U/L
[2024-08-12 03:56] LABS: INR 1.4 (<1.2); Prothrombin Time 14.4 sec (10.0-12.5)
[2024-08-12 06:13] LABS: Glucose,Whole Blood 152 mg/dL (70-110)
[2024-08-12] MEDS: INSULIN LISPRO (HumaLOG) 100 UNIT/ML 10 mL VL SQ SCH ×2 (06:21→08:20)
[2024-08-12 06:25] LABS: Anisocytosis Moderate; Basophils % (A) 0 %; Eosinophils % (A) 1 %; HCT 39.3 % (39.0-53.0); HGB 11.7 gm/dL (13.0-17.5); Hypochromasia Marked; Lymphocytes # (A) 1.3 k/uL (1.0-4.8); Lymphocytes % (A) 28 %; MCH 25.8 pg (25.0-35.0); MCHC 29.7 g/dL (31.0-37.0); MCV 86.8 fL (80.0-100.0); Mean Platelet Volume 7.5; Monocytes # (A) 0.3 k/uL (0-1.0); Monocytes % (A) 6 %; Neutrophils # (A) 2.9 k/uL (1.3-7.7); Neutrophils % (A) 62 %; Platelet Count 152 k/uL (150-450); Poikilocytosis Slight; RBC 4.53 m/uL (4.30-5.90); WBC 4.7 k/uL (3.8-10.6)
[2024-08-12 06:52] LABS: ALT 78 U/L (4-49); AST 68 U/L (17-59); African American GFR (CKD) >90 (>60 ml/min/1.73 sqM); Albumin 4.4 g/dL (3.5-5.0); Albumin/Globulin Ratio 1.8; Alkaline Phosphatase 63 U/L (38-126); Anion Gap 10 mmol/L; Blood Urea Nitrogen 19 mg/dL (9-20); Calcium 9.2 mg/dL (8.4-10.2); Carbon Dioxide 30 mmol/L (22-30); Chloride 95 mmol/L (98-107); Globulin 2.5 g/dL; Glucose 142 mg/dL (74-99); Magnesium 2.1 mg/dL (1.6-2.3); Non-African American GFR(CKD) 83 (>60 ml/min/1.73 sqM); Potassium 4.7 mmol/L (3.5-5.1); Sodium 135 mmol/L (137-145); Total Bilirubin 0.8 mg/dL (0.2-1.3); Total Protein 6.9 g/dL (6.3-8.2)
[2024-08-12] MEDS ORDERED: HEPARIN SOD,PORK IN 0.45% NACL 25,000 UNIT in 0.45% NACL 1 250ML.BAG IV SCH (08:15)
[2024-08-12] MEDS ORDERED: AMINOPHYLLINE 500 MG/20 ML VIAL IV PRN (08:16)
[2024-08-12] MEDS ORDERED: CAFFEINE CITRATE 60 MG/3 ML VIAL IV PRN (08:16)
[2024-08-12] MEDS ORDERED: REGADENOSON 0.4 MG/5 ML SYRINGE IV PRN (08:16)
[2024-08-12] MEDS: ASPIRIN 81 MG PO SCH (08:24)
[2024-08-12] MEDS: ATORVASTATIN 80 MG TAB PO SCH (08:24)
[2024-08-12 08:28] VITALS: BP 110/67; PULSE 89; RESP 18; TEMP 98
[2024-08-12] MEDS ORDERED: INSULIN GLARGINE (LANTUS) 100 UNIT/ML SYR SQ SCH (09:00)
[2024-08-12] MEDS ORDERED: ASPIRIN 325 MG TAB PO SCH (09:00)
[2024-08-12 09:29] LABS: % Iron Saturation 7.19 (15.00-50.00); Ferritin 19.1 ng/mL (22.0-322.0)
[2024-08-12 10:25] LABS: Chol/HDL Ratio 5.06 Ratio
--- NOTE | 2024-08-12 11:18 | P.CRDCN ---
History of Present Illness History of present illness: HISTORY OF PRESENT ILLNESS: This is a 63-year-old male with a past medical history significant for coronary artery disease with previous stenting, pulmonary embolism on Xarelto, COPD, hyp ertension, hyperlipidemia, former nicotine dependence, and obesity. Patient follows in the office with Dr. Muir. We have been asked to see the patient in consultation for chest pain. Patient examined at the bedside. Patient states that he went to put on his pajamas yesterday evening and afterwards he could barely walk back to the kitchen. He reports he was feeling short of breath and felt his face was very flushed. He also reports having chest discomfort at that time. He states that he took nitro without any relief of his symptoms. He states that he did have pain similar to this about a week ago. Patient continues to report some chest discomfort this morning that is worse with deep inspiration. The patient states he is not very active and has chronic shortness of breath. He reports being able to only walk to the doorway of his room without getting short of breath. DIAGNOSTICS: - EKG reveals sinus mechanism with no signs of acute ischemia. - Chest xray negative for acute process. COPD changes.. - Laboratory data: WBC 4.7. Hemoglobin 11.7. Platelet count 152. D-dimer 0.20. Sodium 135. Potassium 4.7. BUN 19. Creatinine 0.98. proBNP less than 20. Troponin negative x 3. AST 68. ALT 78. - Current home cardiac medication list is not updated at the time of dictation - Most recent echocardiogram obtained in October 2019 revealed ejection fraction 55 to 60% with difficulty visualizing intracardiac valves, moderate concentric LVH - Cardiac catheterization history: January 2022 revealing intermediate lesion of the RCA and LAD. FFR of RCA and LAD both came in to be nonischemic. Medical management was recommended. REVIEW OF SYSTEMS: At the time of my exam: CONSTITUTIONAL: Denies fever or chills. HEENT: Denies blurred vision, vision changes, or eye pain. Denies hemoptysis CARDIOVASCULAR: Denies chest pain. Denies orthopnea. Denies PND. Denies palpitations RESPIRATORY: Denies shortness of breath. GASTROINTESTINAL: Denies abdominal pain. Denies nausea or vomiting. HEMATOLOGIC: Denies bleeding disorders. GENITOURINARY: Denies any blood in urine. SKIN: Denies pruitis. Denies rash. PHYSICAL EXAM: VITAL SIGNS: Reviewed. GENERAL: Well-developed in no acute distress. HEENT: Head is normocephalic. Pupils are equal, round. Sclerae anicteric. Mucous membranes of the mouth are moist. Neck supple. No JVD or thyromegaly LUNGS: Respirations even and unlabored. Lungs essentially clear to auscultation bilaterally. HEART: Regular rate and rhythm. S1 and S2 heard. ABDOMEN: Soft. Nondistended. Nontender. EXTREMITIES: Normal range of motion. No clubbing or cyanosis. Peripheral pulses intact. No lower extremity edema NEUROLOGIC: Awake and alert. Oriented x 3. ASSESSMENT: Chest pain Coronary artery disease with previous stenting History of pulmonary embolism on Xarelto COPD Chronic shortness of breath Hypertension Hyperlipidemia Former nicotine dependence Obesity: BMI 37.7 PLAN: An acute coronary event has been ruled out Obtain 2D echo to assess cardiac structure and function Continue to hold Xarelto. Continue IV heparin. Resume home cardiac medications Patient to undergo Lexiscan stress test today. If negative, patient may be discharged home from a cardiac standpoint Further recommendations pending patient course Nurse practitioner note has been reviewed by physician. Signing provider agrees with the documented findings, assessment, and plan of care documented by PANTRY CHEF as a scribe. Past Medical History Past Medical History: Asthma, Coronary Artery Disease (CAD), Cancer, Heart Failure, COPD, Diabetes Mellitus, GERD/Reflux, Hyperlipidemia, Hypertension, Myocardial Infarction (MN), Pneumonia, Prostate Disorder, Pulmonary Embolus (PE) Additional Past Medical History / Comment(s): Chronic CHF, bronchitis, L lung PE, prostate cancer with surgery, IDDM type II with peripheral neuropathy biltateral arms/hands/legs and feet, R leg ORIF with post op life support/wound dehiscence-debridements/skin grafting-now healed, bilateral lower extremity edema at times, SAMIR-does not use CPap d/t no way to clean it, home oxygen which pt states he is to wear 2-2.5L/NC ATC, past coccyx fracture, sinus infections. Last Myocardial Infarction Date:: History of Any Multi-Drug Resistant Organisms: MRSA, VRE Date of last positivie culture/infection: 09/2017 MDRO Source:: right leg Past Surgical History: Heart Catheterization, Heart Catheterization With Stent, Orthopedic Surgery, Prostate Surgery Additional Past Surgical History / Comment(s): R leg trauma/ORIF, dehiscence R leg/debridements/wound vac/skin grafting, prostatectomy. Past Anesthesia/Blood Transfusion Reactions: Previous Problems w/ Anesthesia Additional Past Anesthesia/Blood Transfusion Reaction / Comment(s): states post op for orif of leg at [facility], was on life support, also states unable to lay flat related to COPD Date of Last Stent Placement:: 2018 Past Psychological History: Anxiety, Depression Smoking Status: Former smoker - Past Family History Mother Family Medical History: COPD, Vascular Disorder Additional Family Medical History / Comment(s): Mother is . She had AAA. Father Family Medical History: Cancer Additional Family Medical History / Comment(s): : lung ca with brain mets. Medications and Allergies Home Medications Medication Instructions Recorded Confirmed Type Budesonide/Formoterol Fumarate 2 puff INHALATION RT-BID 02/10/15 02/14/22 History [Symbicort 160-4.5 Mcg Inhaler] Nitroglycerin Sl Tabs [Nitrostat] 0.4 mg SUBLINGUAL Q5M PRN 02/10/15 02/13/22 History Omeprazole [PriLOSEC] 20 mg PO AC-BID 02/10/15 02/14/22 History Cholecalciferol [Vitamin D3 (25 1,000 unit PO DAILY 03/02/19 02/14/22 History Mcg = 1000 Iu)] Cyanocobalamin (Vitamin B-12) 1,000 mcg PO DAILY 03/02/19 02/14/22 History [Vitamin B-12] Loratadine 10 mg PO DAILY 03/02/19 02/14/22 History Furosemide [Lasix] 40 mg PO BID #60 tab 03/04/19 02/14/22 Rx Insulin Glargine,Hum.rec.anlog 55 unit SQ QAM 05/30/19 02/14/22 History [Lantus Solostar Pen] lisinopriL [Zestril] 2.5 mg PO DAILY #30 tab 06/01/19 02/14/22 Rx Isosorbide Mononitrate ER [Imdur] 60 mg PO BID #60 tab 08/29/19 02/14/22 Rx Vascepa 1gm 2 gm PO DAILY 08/29/19 02/13/22 History Albuterol Inhaler [Ventolin Hfa 2 puff INHALATION RT-QID PRN 10/16/19 02/14/22 History Inhaler] Metoprolol Tartrate [Lopressor] 50 mg PO BID 30 Days #60 tab 10/29/19 02/14/22 Rx Insulin Aspart [NovoLOG] 15 units SQ TID-W/MEALS 08/01/21 02/14/22 History Rivaroxaban [Xarelto] 20 mg PO DAILY 08/01/21 02/14/22 History Atorvastatin [Lipitor] 40 mg PO HS 08/02/21 02/14/22 History Acetaminophen [Tylenol] 325 mg PO Q4H PRN 02/13/22 02/13/22 History Ferrous Sulfate [Iron] 325 mg PO HS 02/13/22 02/14/22 History Tiotropium 18 Mcg/Puff [Spiriva] 1 puff INHALATION DAILY 02/13/22 02/14/22 History Allergies Allergy/AdvReac Type Severity Reaction Status Date / Time latex Allergy Itching/red Verified 08/11/24 22:39 skin pregabalin [From Lyrica] Allergy Dyspnea Verified 08/11/24 22:39 venom-honey bee Allergy Unknown Verified 08/11/24 22:39 [bee venom (honey bee)] atorvastatin AdvReac MUSCLE PAIN Verified 08/11/24 22:39 prednisone AdvReac "caused Verified 08/11/24 22:39 shoulder pain" per patient rosuvastatin calcium AdvReac MUSCLE PAIN Verified 08/11/24 22:39 [From Crestor] tramadol AdvReac SUICIDAL Verified 08/11/24 22:39 THOUGHTS venlafaxine AdvReac SUICIDAL Verified 08/11/24 22:39 THOUGHTS Physical Exam Vitals: Vital Signs Temp Pulse Pulse Resp BP BP Pulse Ox 08/12/24 01:30 82 08/12/24 01:04 98.3 F 82 15 111/68 96 08/12/24 00:28 82 18 114/64 90 L 08/11/24 22:35 77 16 98/56 91 L 08/11/24 21:27 98.6 F 84 18 107/69 93 L Intake and Output 08/11/24 08/12/24 08/12/24 22:59 06:59 14:59 Other: Voiding Method Toilet # Voids 2 Weight 122.47 kg 122.47 kg Results 08/12/24 06:03 08/12/24 06:03 Cardiac Enzymes 08/11/24 08/11/24 08/11/24 Range/Units 21:43 21:43 23:43 AST 71 H (17-59) U/L Troponin I <0.012 <0.012 (0.000-0.034) ng/mL 08/12/24 08/12/24 Range/Units 02:46 06:03 AST 68 H (17-59) U/L Troponin I <0.012 (0.000-0.034) ng/mL Coagulation 08/11/24 08/12/24 08/12/24 Range/Units 21:43 02:46 06:03 PT 13.7 H 14.4 H (10.0-12.5) sec APTT 29.1 29.1 (22.0-30.0) sec CBC 08/11/24 08/12/24 Range/Units 21:43 06:03 WBC 4.8 4.7 (3.8-10.6) k/uL RBC 4.45 4.53 (4.30-5.90) m/uL Hgb 11.8 L 11.7 L (13.0-17.5) gm/dL Hct 38.1 L 39.3 (39.0-53.0) % Plt Count 153 152 (150-450) k/uL Comprehensive Metabolic Panel 08/11/24 08/12/24 Range/Units 21:43 06:03 Sodium 134 L 135 L (137-145) mmol/L Potassium 4.1 4.7 (3.5-5.1) mmol/L Chloride 96 L 95 L (98-107) mmol/L Carbon Dioxide 25 30 (22-30) mmol/L BUN 17 19 (9-20) mg/dL Creatinine 0.89 0.98 (0.66-1.25) mg/dL Glucose 206 H 142 H (74-99) mg/dL Calcium 9.3 9.2 (8.4-10.2) mg/dL AST 71 H 68 H (17-59) U/L ALT 75 H 78 H (4-49) U/L Alkaline Phosphatase 64 63 (38-126) U/L Total Protein 6.8 6.9 (6.3-8.2) g/dL Albumin 4.3 4.4 (3.5-5.0) g/dL Current Medications Generic Name Dose Route Start Last Admin Trade Name Freq PRN Reason Stop Dose Admin Alprazolam 0.25 mg 08/11/24 23:17 Alprazolam 0.25 Mg Tab PO QID PRN Anxiety Aspirin 81 mg 08/12/24 09:00 Aspirin 81 Mg PO DAILY [facility] Atorvastatin Calcium 80 mg 08/12/24 09:00 Atorvastatin 80 Mg Tab PO DAILY [facility] Heparin Sodium (Porcine) 0 unit 08/11/24 23:21 Heparin Sodium 1,000 Un/Ml (10ml Vl) IV PER PROTOCOL PRN Low PTT Protocol Heparin Sodium/Sodium Chloride 250 mls @ 14.696 mls/hr 08/12/24 08:15 25,000 unit/ Sodium Chloride IV .Q17H1M [facility] Protocol 12 UNITS/KG/HR Insulin Human Lispro 15 unit 08/12/24 07:30 Insulin Lispro (Humalog) 100 Unit/Ml 10 Ml Vl SQ TID-W/MEALS [facility] Insulin Human Lispro 0 unit 08/12/24 07:30 08/12/24 06:21 Insulin Lispro (Humalog) 100 Unit/Ml 10 Ml Vl SQ Not Given ACHS [facility] Protocol Nitroglycerin 0.4 mg 08/11/24 23:17 Nitroglycerin Sl Tabs 0.4 Mg Tab SUBLINGUAL Q5M PRN Chest Pain Intake and Output 08/11/24 08/12/24 08/12/24 22:59 06:59 14:59 Other: Voiding Method Toilet # Voids 2 Weight 122.47 kg 122.47 kg 08/12/24 06:03 08/12/24 06:03
--- NOTE | 2024-08-12 11:25 | NM ---
EXAMINATION TYPE: NM stress lexiscan cardiolite DATE OF EXAM: 08/12/2024 COMPARISON: NONE CLINICAL INDICATION: Male, 63 years old with history of CP; history of diabetes and hypercholesterole bala. History of angioplasty x 7 . TECHNIQUE: After the intravenous administration of 11.1 mCi Tc 99m Sestamibi - Cardiolite resting SP ECT images acquired 45 minutes post injection. The patient received 0.4mg Lexiscan, 26.3 mCi Tc 99m Sestamibi - Stress images obtained [address] injection FINDINGS: Review of stress and rest SPECT images demonstrates no distinct perfusion abnormality. Gated analysi s shows normal wall motion with an estimated left ventricular ejection fraction of 64 %. IMPRESSION: No scintigraphic evidence for reversible ischemia. [facility], , 08/12/2024 11:22 AM
[2024-08-12 12:05] LABS: Glucose,Whole Blood 208 mg/dL (70-110)
[2024-08-12 12:49] LABS: Appearance,Urine Clear (Clear); Bilirubin,Urine Negative (Negative); Blood,Urine Moderate (Negative); Color,Urine Yellow; Glucose,Urine (UA) 4+ (Negative); Ketones,Urine Negative (Negative); Leukocyte Esterase,Urine Negative (Negative); Mucus,Urine Rare /hpf; Nitrite,Urine Negative (Negative); Protein,Urine Negative (Negative); RBC,Urine 80 /hpf (0-5); Specific Gravity,Urine 1.029 (1.001-1.035); Urobilinogen,Urine <2.0 mg/dL (<2.0); WBC,Urine 2 /hpf (0-5)
--- NOTE | 2024-08-12 13:06 | CA ---
Lexiscan Nuclear Stress Test Report Name: Obi Matamoros Exam Date: 08/12/2024 09:57 Exam Location: [place] Stress Ht (in): 71 Wt (lb): 270 BSA: 2.40 Ordering Phys: Xena Bloom Referring Phys: BRENT Technologist: Michoacano Giron Age: 63 Gender: M : 1960 Procedure CPT: Indications: Reflex order-Stress test ICD-10 Codes: Patient History: Medications: see chart Meds past 24 hrs: Pretest Chest Pain: STRESS TEST Lexiscan Protocol Exercise Duration (min:sec): 01:[address] Depressions (mm): Angina Score: Vizcarra Score: Resting HR (bpm): 79 Peak HR (bpm): 95 Resting BP (mmHg): 117 / 79 Peak BP (mmHg): 149 / 52 MPHR: 158 Target HR: 134 % MPHR: 60 METS: 1.0 Total Dose: Peak Dose: Atropine: Double Product: 60413 BP Response: Stress Termination: INFUSION COMPLETE Stress Symptoms: CHEST PRESSURE Stress Summary: ECG ANALYSIS Resting ECG: Sinus rhythm. Normal conduction. No arrhythmias. Normal repolarization. Stress ECG: No ECG changes from baseline with Lexiscan infusion. CONCLUSIONS No ECG evidence of ischemia with Lexiscan infusion. Nuclear test results to follow. Dr. Gifty Isidro MD (Electronically Signed) Final Date: 12 August 2024 13:05
--- NOTE | 2024-08-12 13:32 | CA ---
Transthoracic Echo Report Name: Obi Matamoros Age: 63 Gender: M : 1960 Exam Date: 08/12/2024 08:26 Exam Location: [place] Echo Ht (in): 71 Wt (lb): 270 Ordering Physician: Juana Fuentes MD Attending/Referring Phys: [employer] Betsy Pantoja RDCS Procedure CPT: Indications: Chest Pain Cardiac Hx: Technical Quality: Fair Contrast 1: Total Dose (mL): Contrast 2: Total Dose (mL): MEASUREMENTS (Male / Female) Normal Values 2D ECHO LV Diastolic Diameter PLAX 4.8 cm 4.2 - 5.9 / 3.9 - 5.3 cm LV Systolic Diameter PLAX 3.1 cm IVS Diastolic Thickness 1.4 cm 0.6 - 1.0 / 0.6 - 0.9 cm LVPW Diastolic Thickness 1.3 cm 0.6 - 1.0 / 0.6 - 0.9 cm LV Relative Wall Thickness 0.6 RV Internal Dim ED PLAX 2.2 cm LVOT Diameter 2.1 cm LA Systolic Diameter LX 4.8 cm 3.0 - 4.0 / 2.7 - 3.8 cm LV Diastolic Volume MOD BP 81.3 cm??? 67 - 155 / 56 - 104 cm??? LV Systolic Volume MOD BP 27.8 cm??? 22 - 58 / 19 - 49 cm??? LV Ejection Fraction MOD BP 65.8 % >= 55 % LV Cardiac Index MOD BP 1271.5 cm???/min???m??? LV Diastolic Volume MOD 4C 76.2 cm??? LV Systolic Volume MOD 4C 27.8 cm??? LV Ejection Fraction MOD 4C 63.6 % LV Cardiac Index MOD 4C 1150.7 cm???/min???m??? LV Diastolic Length 4C 9.4 cm LV Systolic Length 4C 7.3 cm LV Diastolic Volume MOD 2C 78.0 cm??? LV Systolic Volume MOD 2C 29.7 cm??? LV Ejection Fraction MOD 2C 61.9 % LV Cardiac Index MOD 2C 1148.5 cm???/min???m??? LV Diastolic Length 2C 8.3 cm LV Systolic Length 2C 7.2 cm M-MODE Aortic Root Diameter MM 3.2 cm LA Systolic Diameter MM 5.2 cm LA Ao Ratio MM 1.6 AV Cusp Separation MM 1.8 cm DOPPLER AV Peak Velocity 204.7 cm/s AV Peak Gradient 16.8 mmHg AV Mean Velocity 140.9 cm/s AV Mean Gradient 8.9 mmHg AV Velocity Time Integral 40.9 cm LVOT Peak Velocity 129.3 cm/s LVOT Peak Gradient 6.7 mmHg LVOT Velocity Time Integral 25.7 cm LVOT Stroke Volume 90.7 cm??? LVOT Stroke Volume Index 37.9 ml/m??? LVOT Cardiac Index 2155.4 cm???/min???m??? AV Area Cont Eq vti 2.2 cm??? AV Area Cont Eq pk 2.2 cm??? Mitral E Point Velocity 69.9 cm/s Mitral A Point Velocity 114.9 cm/s Mitral E to A Ratio 0.6 MV Deceleration Time 328.2 ms FINDINGS Left Ventricle Left ventricular ejection fraction is estimated at 55-60 %.Normal left ventricular systolic function with no obvious regional wall motion abnormalities. Left ventricular cavity size normal. Mildly increased left ventricular wall thickness. Right Ventricle Normal right ventricular size and function. Right ventricular systolic pressure within normal limits. Right Atrium Mild right atrial dilatation. Left Atrium Moderately increased left atrial diameter. Mitral Valve Structurally normal mitral valve. Mild mitral regurgitation. No mitral stenosis. Aortic Valve Trileaflet aortic valve. Diffuse thickening (sclerosis) of the aortic valve cusps without reduced excursion. No aortic regurgitation. Tricuspid Valve Tricuspid valve not well visualized. Trace tricuspid regurgitation. No tricuspid stenosis. Pulmonic Valve Pulmonic valve not well visualized. Pericardium No pericardial or pleural effusion. Aorta Normal size aortic root and proximal ascending aorta. CONCLUSIONS 1. Normal left ventricular size and systolic function 2. Mild mitral regurgitation Previewed by: Dr. Gifty Isidro MD (Electronically Signed) Final Date: 12 August 2024 13:32
[2024-08-12] MEDS ORDERED: RIVAROXABAN 20 MG TAB PO SCH (17:30)
--- NOTE | 2024-08-12 17:45 | P.DS ---
Providers Date of admission: 08/11/24 23:21 Expected date of discharge: 08/12/24 Attending physician: Jennifer Mix MD Consults: 08/11/24 23:17 Consult Physician Urgent Consulting Provider: Saul Burton Consult Reason/Comments: ACS Do you want consulting provider notified?: Yes, Notify in am Primary care physician: Arnold Mathur Hospital Course: Hospital Course: Patient is a 63-year-old male with a PMH of coronary artery disease s/p stents x 7, COPD on 2.5 L of home oxygen, prostate cancer currently in remission s/p prostatectomy, HFpEF (EF of 55-60% in 2019), history of PE on Xarelto presenting with chest pain. EKG independently interpreted displays CXR independently interpreted displays no acute cardiopulmonary process Troponin <0.012 x 2, proBNP <20, D-dimer 0.20, WBC 4.8, Hgb 11.8, HCT 38.1, MCV 85.6, platelet 153, PT 13.7, INR 1.3, APTT 29.1, D-dimer 0.20, sodium T 98 F, OR 84, RR 18, BP 107/69, O2 sat 93% on 2 L nasal cannula Patient was admitted for the evaluation of unstable angina. Ordered aspirin, Lipitor, nitroglycerin, echocardiogram, cardiac telemetry, lipid panel, A1c, TSH. Cardiology consulted. Echocardiogram showed normal left ventricular size and systolic function with ejection fraction of 55 to 60%, mild mitral regurgitation. Lexiscan stress test showed no scintigraphic evidence forests reversible ischemia. Patient symptoms improved throughout hospital stay. Patient reported to have an episode of hematuria throughout stay but did not have any worsening of symptoms or any associated symptoms. Patient is cleared for discharge today and is advised to follow-up with PCP and cardiology on outpatient basis. We also advised him to follow-up with a urologist regarding his hematuria. He is prescribed aspirin and high intensity atorvastatin. We recommend a repeat lipid panel in 6 weeks to evaluate the need for medical optimization of hyperlipidemia as well as further investigation of anemia. Final Diagnosis: #. Noncardiac chest pain, ACS ruled out #. Transaminitis, improved #. Coronary artery disease #. Type II diabetes #. COPD on 2.5 L home oxygen not in acute exacerbation #. Heart failure with preserved ejection fraction, not in acute exacerbation #. Mild hyponatremia #. Iron deficiency anemia #. History of PE Physical examination: Vital signs reviewed General: non toxic, no distress Derm: no unusual rashes/lesions, warm Head: atraumatic, normocephalic, symmetric Eyes: EOMI, anicteric sclera, pupils equal round reactive to light ENT: Nose and ears atraumatic Neck: No cervical lymphadenopathy, trachea midline, supple Mouth: no lip lesion, mucus membranes moist Cardiovascular: S1S2 reg, no murmur Lungs: CTA bilateral, no rhonchi, no rales, no accessory muscle use Abdominal: soft, nondistended, nontender to palpation, no guarding Ext: muscle strength 5 out of 5 in all 4 extremities grossly, no gross muscle atrophy, no contractures, positive dorsalis pedis pulse bilateral, B/L lower extremity trace edema, bilateral lower extreamity statis dermatitis Neuro: CN II-XI grossly intact, no gross focal neuro deficits Psych: Alert, oriented, appropriate affect and mood A total of 36 minutes of time were spent preparing this complex discharge summary. Patient was discharged on 08/12/2024 at 1246. I have seen and evaluated the patient today. Discussed with the resident and agree with the residents finding and plan as documented in the resident's note. Changes highlighted in blue font. Patient Condition at Discharge: Stable Plan - Discharge Summary Discharge Rx Participant: No New Discharge Prescriptions: New Aspirin 81 mg PO DAILY #90 tab Atorvastatin [Lipitor] 80 mg PO DAILY #60 tab Continue Omeprazole [PriLOSEC] 20 mg PO AC-BID Nitroglycerin Sl Tabs [Nitrostat] 0.4 mg SUBLINGUAL Q5M PRN PRN Reason: Chest Pain Budesonide/Formoterol Fumarate [Symbicort 160-4.5 Mcg Inhaler] 2 puff INHALATION DIRECTED Cyanocobalamin (Vitamin B-12) [Vitamin B-12] 1,000 mcg PO DAILY Loratadine 10 mg PO DAILY Furosemide [Lasix] 40 mg PO BID #60 tab Insulin Glargine,Hum.rec.anlog [Lantus Solostar Pen] 50 unit SQ DAILY lisinopriL [Zestril] 2.5 mg PO DAILY #30 tab Isosorbide Mononitrate ER [Imdur] 60 mg PO BID #60 tab Albuterol Inhaler [Ventolin Hfa Inhaler] 2 puff INHALATION RT-QID PRN PRN Reason: Shortness Of Breath Metoprolol Tartrate [Lopressor] 50 mg PO BID 30 Days #60 tab Rivaroxaban [Xarelto] 20 mg PO DAILY Empagliflozin [Jardiance] 10 mg PO DAILY Insulin Aspart [NovoLOG Flexpen] 10 units SQ TID-W/MEALS Cholecalciferol [Vitamin D3 (25 Mcg = 1000 Iu)] 25 mcg PO DAILY Tiotropium 2.5 Mcg/Puff [Spiriva Respimat 2.5 Mcg] 2 puff INHALATION RT-DAILY Acetaminophen [Tylenol Arthritis] 650 mg PO Q6H PRN PRN Reason: Pain Or Fever > 100.5 metFORMIN HCL 500 mg PO BID Ezetimibe [Zetia] 10 mg PO DAILY Discontinued Atorvastatin [Lipitor] 40 mg PO DAILY Discharge Medication List Budesonide/Formoterol Fumarate [Symbicort 160-4.5 Mcg Inhaler] 2 puff INHALATION DIRECTED 02/10/15 [History] Nitroglycerin Sl Tabs [Nitrostat] 0.4 mg SUBLINGUAL Q5M PRN 02/10/15 [History] Omeprazole [PriLOSEC] 20 mg PO AC-BID 02/10/15 [History] Cyanocobalamin (Vitamin B-12) [Vitamin B-12] 1,000 mcg PO DAILY 03/02/19 [History] Loratadine 10 mg PO DAILY 03/02/19 [History] Furosemide [Lasix] 40 mg PO BID #60 tab 03/04/19 [Rx] Insulin Glargine,Hum.rec.anlog [Lantus Solostar Pen] 50 unit SQ DAILY 05/30/19 [History] lisinopriL [Zestril] 2.5 mg PO DAILY #30 tab 06/01/19 [Rx] Isosorbide Mononitrate ER [Imdur] 60 mg PO BID #60 tab 08/29/19 [Rx] Albuterol Inhaler [Ventolin Hfa Inhaler] 2 puff INHALATION RT-QID PRN 10/16/19 [History] Metoprolol Tartrate [Lopressor] 50 mg PO BID 30 Days #60 tab 10/29/19 [Rx] Rivaroxaban [Xarelto] 20 mg PO DAILY 08/01/21 [History] Acetaminophen [Tylenol Arthritis] 650 mg PO Q6H PRN 08/12/24 [History] Aspirin 81 mg PO DAILY #90 tab 08/12/24 [Rx] Atorvastatin [Lipitor] 80 mg PO DAILY #60 tab 08/12/24 [Rx] Cholecalciferol [Vitamin D3 (25 Mcg = 1000 Iu)] 25 mcg PO DAILY 08/12/24 [History] Empagliflozin [Jardiance] 10 mg PO DAILY 08/12/24 [History] Ezetimibe [Zetia] 10 mg PO DAILY 08/12/24 [History] Insulin Aspart [NovoLOG Flexpen] 10 units SQ TID-W/MEALS 08/12/24 [History] Tiotropium 2.5 Mcg/Puff [Spiriva Respimat 2.5 Mcg] 2 puff INHALATION RT-DAILY 08/12/24 [History] metFORMIN HCL 500 mg PO BID 08/12/24 [History] Follow up Appointment(s)/Referral(s): Bernardino Muir MD [STAFF PHYSICIAN] - 1 Week Porfirio Alcocer MD [STAFF PHYSICIAN] - 1 Week Amanda Mcneal PAC [REFERRING] - 1-2 days Patient Instructions/Handouts: Coronary Artery Disease (DC), Chest Pain (DC), Iron Deficiency Anemia (GEN), Hyperlipidemia (DC) Activity/Diet/Wound Care/Special Instructions: Please see PCP and cardiology for follow up. Follow up with urology regarding blood in urine Discharge Disposition: HOME SELF-CARE
== END 2024-08-12 13:12 | disposition home or self-care (01) ==
LOC: EC 21:25 → 6NMEDSUR 23:21
PROVIDERS: ADMIT Internal Medicine; ATTEND Internal Medicine
DX: R07.89 Other chest pain (principal); I11.0 Hypertensive heart disease with heart failure; J44.9 Chronic obstructive pulmonary disease, unspecified; I25.10 Atherosclerotic heart disease of native coronary artery without angina pectoris; I34.0 Nonrheumatic mitral (valve) insufficiency; I50.32 Chronic diastolic (congestive) heart failure; E87.1 Hypo-osmolality and hyponatremia; D50.9 Iron deficiency anemia, unspecified; R74.01 Elevation of levels of liver transaminase levels; I87.2 Venous insufficiency (chronic) (peripheral); E11.9 Type 2 diabetes mellitus without complications; E78.5 Hyperlipidemia, unspecified; R31.9 Hematuria, unspecified; Z99.81 Dependence on supplemental oxygen; M54.2 Cervicalgia; R68.84 Jaw pain; M79.602 Pain in left arm; R07.2 Precordial pain; I25.2 Old myocardial infarction; E66.9 Obesity, unspecified; Z68.37 Body mass index [BMI] 37.0-37.9, adult; Z79.51 Long term (current) use of inhaled steroids; Z79.01 Long term (current) use of anticoagulants; Z79.4 Long term (current) use of insulin; Z79.84 Long term (current) use of oral hypoglycemic drugs; Z79.899 Other long term (current) drug therapy; Z79.82 Long term (current) use of aspirin; Z88.8 Allergy status to other drugs, medicaments and biological substances; Z91.030 Bee allergy status; Z91.040 Latex allergy status; Z95.5 Presence of coronary angioplasty implant and graft; Z86.711 Personal history of pulmonary embolism; Z87.891 Personal history of nicotine dependence; Z85.46 Personal history of malignant neoplasm of prostate; Z90.79 Acquired absence of other genital organ(s)
CPT/HCPCS: 96376 ×2; 96365; 96375; 99285; 36415; 93005; 93017; 93306; 85379; 82747; 83880; 80061; 80053 ×2; 82607; 82728; 83540; 83550; 83690; 83735 ×2; 84484 ×2; 85025 ×2; 85610 ×2; 85730 ×2; 81001; 83721; 84466; 83036; 71046; 78452; G0378 ×2; A9500; J2270; J2405; J1644 ×2; J2785